=== PATIENT | female | born 1955 | race Caucasian/White ===

== ENCOUNTER 2022-06-03 10:48 | Outpatient (CLI) | payer MEDICARE, SELFPAY | END 2022-06-03 10:49 | disposition home or self-care (01) | LOC: NFLDREF 10:50 | PROVIDERS: PCP Family Medicine; Visit Provider Family Medicine | DX: Z00.00 Encounter for general adult medical examination without abnormal findings (principal); R53.83 Other fatigue; E78.5 Hyperlipidemia, unspecified; N39.0 Urinary tract infection, site not specified; E03.9 Hypothyroidism, unspecified; M85.80 Other specified disorders of bone density and structure, unspecified site; Z12.4 Encounter for screening for malignant neoplasm of cervix | CPT/HCPCS: 87624; 88175 ==

== ENCOUNTER 2022-06-16 13:52 | Outpatient (CLI) | payer MEDICARE, SELFPAY ==
--- NOTE | 2022-06-16 14:00 | CRLHL7_ITS ---
For Patients: As a result of the Century Cures Act, medical imaging exams and procedure reports are released immediately into your electronic medical record. You may view this report before your referring provider. If you have questions, please contact your health care provider. DXA BONE MINERAL DENSITY STUDY Current height (in): 67.5. Weight (lb): 210.0. Menopause age: 50. Ethnicity: White. 1. Have you had a previous hip or vertebral fracture? No. 2. Have you had any fractures during your adult life which did not result from significant trauma (e.g., auto accident)? Yes. 3. Did either of your parents have a hip fracture? No. 4. Do you smoke? No. 5. Have you ever taken Glucocorticoids? No. 6. Do you have rheumatoid arthritis? No. 7. Do you have secondary osteoporosis? No. 8. Do you drink 3 or more alcoholic drinks per day? No. 9. Are you being treated for osteoporosis? No. 10. Have you ever taken any of the following medications: Actonel, Evista, Fosamax, Miacalcin, Reclast, Boniva, Forteo, HRT (i.e. estrogen/hormone therapy), Protelos, Prolia, Vitamin D, Calcium, other ??? please specify. ANSWER: Yes, calcium, vitamin D. 11. Do you have any of the following medical conditions: Anorexia or bulimia, asthma or emphysema, end stage renal disease, hyperparathyroidism, any seizure disorders, cancer, inflammatory bowel diseases, hysterectomy, other ??? please specify. ANSWER: No. 12. What was your maximum height (inches)? 67.5. 13. Do you perform weight bearing exercise regularly? Yes. 14. Do you regularly consume dairy products? Yes. 15. Do you drink caffeinated beverages? No. 16. At what age did your period start? 14. 17. Are you premenopausal? No. 18. How many full term pregnancies have you had? Zero. 19. Have you ever missed your period for more than 6 months in a row (not including or menopause)? No. TECHNIQUE: Bone mineral density study was performed using the [employer]. FINDINGS: The results of the study expressed as bone mineral density (BMD) are as follows: Lumbar spine L1 to L4: BMD: 0.940 g/cm2. T-score: -1.0. Z-score: 0.8. Neck Left: BMD: 0.704 g/cm2. T-score: -1.3. Z-score: 0.2. Right: BMD: 0.737 g/cm2. T-score: -1.0. Z-score: 0.5. Total Left: BMD: 0.777 g/cm2. T-score: -1.4. Z-score: -0.1. Right: BMD: 0.844 g/cm2. T-score: -0.8. Z-score: 0.5. IMPRESSION: Osteopenia. *Comparison exams done prior to 04/2020 were performed on different unit, [employer]ron[employer]. COMPARISON: Compared with scan of 2019, the bone mineral density has increased by 8.5 percent at the spine and increased by 2.8 percent at the hips. FRAX 10-year Fracture Risk Major Osteoporotic Fracture: 13 percent Hip Fracture: 1.2 percent Reported Risk Factors: [place] () Neck BMD=0.704, BMI=32.4, previous fracture. Levy Whipple M.D. Diagnostic Radiologist [email or web address] MERY/felicia / be/Dictated by: Levy Whipple MD @ 06/16/2022 3:47:00 PM (Electronically Signed)
== END 2022-06-16 13:53 | disposition home or self-care (01) ==
LOC: RAD 13:52
PROVIDERS: PCP Family Medicine; Visit Provider Family Medicine
DX: M85.80 Other specified disorders of bone density and structure, unspecified site (principal); M81.0 Age-related osteoporosis without current pathological fracture
CPT/HCPCS: 77080

== ENCOUNTER 2022-09-22 13:29 | Outpatient (CLI) | payer MEDICARE, SELFPAY ==
--- OUTSIDE RECORDS SUMMARY | 2022-09-22 13:32 | XMS_ITS | Encounter Summary ---
:1955 Author Organization [facility] Address [address] [place] [address] Care Team Providers Name Role Phone Niecy Herrera M.D., M.P.H. Primary Care Provider [phone] Encounter Details Date Type Department Care Team Description 06/03/2022 [facility] Vidhi Velarde Infection Urinary AND CL[facility]ICS [place] (Primary Dx) [address] [facility] [address] [place] [address] [place], [place] [phone] [facility] Social History Tobacco Use Types Packs/Day Years Used Date Smoking Tobacco: Never Smokeless Tobacco: Never Alcohol Use Standard Drinks/Week Comments Yes 0 (1 standard drink = 0.6 oz pure alcoho l) Social Alcohol Habits Answer Date Recorded How often do you have a drink containing alcohol? Monthly or less 09/12/2022 How many drinks containing alcohol do you have on a 1 or 2 09/12/2022 typical day when you are drinking? How often do you have six or more drinks on one Never 09/12/2022 occasion? Social Isolation Answer Date Recorded In a typical week, how many times do you talk on the phone T wice a week 09/12/2022 with family, friends, or neighbors? How often do you get together with friends or relatives? Nev er 09/12/2022 How often do you attend synagogue or alevism services? Never 05/13/2019 Do you belong to any clubs or organizations such as synagogue N o 09/12/2022 groups, unions, fraternal or athletic groups, or school groups? How often do you attend meetings of the clubs or Never 05/13/2019 organizations you belong to? Are you now , , , , never Mar ried 09/12/2022 or living with a partner? Physical Activity Answer Date Recorded On average, how many days per week do you engage in moderate to 3 days 09/12/2022 strenuous exercise (like walking fast, running, jogging, dancing, swimming, biking, or other activities that cause a light or heavy sweat)? On average, how many minutes do you engage in exercise at th is 40 min 09/12/2022 level? Stress Answer Date Recorded Do you feel stress - tense, restless, nervous, or Only a lit tle 09/12/2022 anxious, or unable to sleep at night because your mind is troubled all the time - these days? Financial Resource Strain Answer Date Recorded How hard is it for you to pay for the very basics like Not h isis at all 09/12/2022 food, housing, medical care, and heating? Intimate Partner Violence Answer Date Recorded Within the last year, have you been afraid of your partner o r No 09/12/2022 ex-partner? Within the last year, have you been humiliated or emotionall y No 09/12/2022 abused in other ways by your partner or ex-partner? Within the last year, have you been kicked, hit, slapped, or No 09/12/2022 otherwise physically hurt by your partner or ex-partner? Within the last year, have you been raped or forced to have any No 09/12/2022 kind of sexual activity by your partner or ex-partner? Food Insecurity Answer Date Recorded Within the past 12 months, you worried that your food would Never true 09/12/2022 run out before you got money to buy more. Within the past 12 months, the food you bought just didn't N ever true 09/12/2022 last and you didn't have money to get more. Transportation Needs Answer Date Recorded In the past 12 months, has lack of transportation kept you f rom No 09/12/2022 medical appointments or from getting medications? In the past 12 months, has lack of transportation kept you f rom No 09/12/2022 meetings, work, or getting things needed for daily living? Housing Stability Answer Date Recorded In the last 12 months, was there a time when you were not ab le No 09/12/2022 to pay the mortgage or rent on time? In the last 12 months, how many places have you lived? 1 09/12/2022 In the last 12 months, was there a time when you did not hav e a No 09/12/[address] or slept in a prison (including now)? Education Answer Date Recorded What is the highest level of school Bachelor's degree (e.g., BA, AB, 05/13/2019 you have completed or the highest BS) degree you have received? 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 [address], [place] [phone] (Wo rk) documented as of this encounter Visit Diagnoses Diagnosis Infection Urinary Tract - Primary documented in this encounter Additional Health Concerns Assessment Noted Time PHQ-9 Depression Total Score: 2 04/17/2019 10:20 AM CD T documented as of this encounter Care Teams Mechanic Assistant Relationship Specialty Start Date End Date Niecy Herrera M.D., M.P.H. PCP - General 08/15/20 [address] [place] [address] documented as of this encounter
--- OUTSIDE RECORDS SUMMARY | 2022-09-22 13:32 | XMS_ITS | Encounter Summary ---
:1955 Author Organization [facility] Address [address] [place] [address] Care Team Providers Name Role Phone Niecy Herrera M.D., M.P.H. Primary Care Provider [phone] Encounter Details Date Type Department Care Team Description 05/13/2022 Orders Only Department of Family Radha Santamaria, Medicine, [facility] in [facility] [address] [place] [phone] Social History Tobacco Use Types Packs/Day Years [...] er 09/12/2022 How often do you attend evangelical or muslim services? Never 05/13/2019 Do you belong to any clubs or organizations such as evangelical N o 09/12/2022 groups, unions, fraternal or [...] place to sleep or slept in a long term (including now)? Education Answer Date Recorded What is the highest level of school Bachelor's degree (e.g., BA, AB, 05/13/2019 you have completed or the highest BS) degree you have received? 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 [address], [place] [phone] (Wo rk) documented as of this encounter Visit Diagnoses Not on filedocumented in this encounter Additional Health Concerns Assessment Noted Time PHQ-9 Depression Total Score: 2 04/17/2019 10:20 AM CD T documented as of this encounter Care Teams Director Software Quality Assurance Relationship Specialty Start Date End Date Niecy Herrera M.D., M.P.H. PCP - General 08/15/20 [address] [place] [address] documented as of this encounter
--- OUTSIDE RECORDS SUMMARY | 2022-09-22 13:32 | XMS_ITS | Encounter Summary ---
:1955 Author Organization [facility] Address [address] [place] [address] Care Team Providers Name Role Phone Niecy Herrera M.D., M.P.H. Primary Care Provider [phone] Reason for Referral Outpatient (Routine) - Authorized Specialty Diagnoses / Procedures Referred By Contact Refer red To Contact Diagnoses Screening Mammogram Breast Cancer Niecy Herrera M.D., [facility] Procedures BI Breast Screening Bilateral with Tomosynthesis M.P.H. [address] [place] [phone] Referral ID Status Reason Start Date Expiration Date Visits V isits Requested Authorized [id number] Authorized 09/21/2022 09/21/2023 1 1 X VMWARE ADMINISTRATOR Encounter Details Date Type Department Care Team Description 09/21/2022 Orders Only RST PCP [facility] Niecy Herrera, Scre ening Examination Diabetes Mellitus; Pepper, M.P.H. Screening Mammogram Breast Cancer; [address] [place] [phone] (Wo rk) Social History Tobacco Use Types Packs/Day Years [...] er 09/12/2022 How often do you attend uatsdin or lutheran services? Never 05/13/2019 Do you belong to any clubs or organizations such as uatsdin N o 09/12/2022 groups, unions, fraternal or [...] place to sleep or slept in a long-term (including now)? Education Answer Date Recorded What is the highest level of school Bachelor's degree (e.g., BA, AB, 05/13/2019 you have completed or the highest BS) degree you have received? 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 [address] [phone] (Wo rk) Scheduled Orders Name Type Priority Associated Diagnoses Order S chedule Glucose, Fasting Lab Routine Screening Examination Ex pected: Diabetes Mellitus 10/05/2022 , Expires: 03/20/2023 BI Breast Screening Imaging RAD - Routine Screening Mammogram Expected: Bilateral with (most inpatients Breast Cancer 12/08/20 22, Tomosynthesis and all Expires: outpatients) 03/20/2023 S-TSH Lab Routine Hypothyroidism Expected: (Thyroid-Stimulating 022, Hormone - Sensitive) Expires : 03/20/2023 documented as of this encounter Visit Diagnoses Diagnosis Screening Examination Diabetes Mellitus Screening Mammogram Breast Cancer Hypothyroidism documented in this encounter Additional Health Concerns Assessment Noted Time PHQ-9 Depression Total Score: 2 04/17/2019 10:20 AM CD T documented as of this encounter Care Teams Welding Manager Relationship Specialty Start Date End Date Niecy Herrera M.D., M.P.H. PCP - General 08/15/20 [address] [place] [address] documented as of this encounter
--- OUTSIDE RECORDS SUMMARY | 2022-09-22 13:32 | XMS_ITS | Encounter Summary ---
:1955 Author Organization [facility] Address [address] [place] [address] Care Team Providers Name Role Phone Niecy Herrera M.D., M.P.H. Primary Care Provider [phone] Encounter Details Date Type Department Care Team Description 09/24/2021 Orders Only [facility] PCP [facility] M[facility] Niecy Herrera M.D., M.P.H. [address] [place], [place] [phone] (Wo rk) Social History Tobacco Use Types [...] er 09/12/2022 How often do you attend christianity or roman catholic services? Never 05/13/2019 Do you belong to any clubs or organizations such as christianity N o 09/12/2022 groups, unions, fraternal or [...] at Date Recorded Female 11/29/2017 6:36 PM RECONSTRUCTIVE SURGEON documented as of this encounter Plan of Treatment Upcoming Encounters Date Type Specialty Care Team Description 11/01/2022 Office Visit Urology Regina Black, PRIOR AUTHORIZATION NURSE, C.N.P. [address], [place] [phone] (Wo rk) documented as of this encounter Visit Diagnoses Not on filedocumented in this encounter Additional Health Concerns Assessment Noted Time PHQ-9 Depression Total Score: 2 04/17/2019 10:20 AM CD T documented as of this encounter Care Teams Container Finisher Relationship Specialty Start Date End Date Niecy Herrera M.D., M.P.H. PCP - General 08/15/20 [address] [place] [address] documented as of this encounter
--- OUTSIDE RECORDS SUMMARY | 2022-09-22 13:32 | XMS_ITS | Encounter Summary ---
:1955 Author Organization [facility] Address [address] [place] [address] Care Team Providers Name Role Phone Niecy Herrera M.D., M.P.H. Primary Care Provider [phone] Reason for Referral Physical Therapy (Routine) - Authorized Specialty Diagnoses / Procedures Referred By Contact Refer red To Contact Physical Therapy Diagnoses Dysfunction Pelvic Floor Female Incomplete Bladder Emptying Constipation [facility] [address] [address] Phone: [phone] Referral ID Status Reason Start Expiration Visits Visits Date Date Requested Authorized [id number] Authorized Service not 09/13/2023 1 1 available in 2 [facility] utpatient (Routine) - Authorized Specialty Diagnoses / Procedures Referred By Contact Refer red To Contact Urology Regina Black APRN, C.N.P. [facility] [address] [place] [address] Referral ID Status Reason Start Date Expiration Date Visits V isits Requested Authorized [id number] Authorized 09/13/2022 09/12/2025 1 1 Reason for Visit Reason Comments Recurrent Urinary Tract Infection Incomplete Bladder Emptying Appointment Request (Routine) - Closed Specialty Diagnoses / Procedures Referred By Contact Refer red To Contact Urology Referral ID Status Reason Start Date Expiration Date Visits Requ ested Visits Authorized [id number] Closed 09/06/2022 09/06/2023 1 1 Encounter Details Date Type Department Care Team Description 09/13/2022 Office Visit Department of Urology Regina Black, Incomplete Bladder Emptying (Primary Dx); in [facility] Richardson C.N.Karen Dysfunction Pelvic Floor Female; [place] [address] Constipation; [address] [facility] [place] Infection Urinary Tract Recu rrent ARIA RICHARDSON [id number] [phone] Social History Tobacco Use Types Packs/Day Years Used Date Smoking Tobacco: Never Smokeless Tobacco: Never Tobacco Cessation: Counseling Given: Not Answered Alcohol Use Standard Drinks/Week Comments Yes 0 [...] er 09/12/2022 How often do you attend anabaptist or cheondoism services? Never 05/13/2019 Do you belong to any clubs or organizations such as anabaptist N o 09/12/2022 groups, unions, fraternal or [...] place to sleep or slept in a residential (including now)? Education Answer Date Recorded What is the highest level of school Bachelor's degree (e.g., BA, AB, 05/13/2019 you have completed or the highest BS) degree you have received? 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 - 09/13/2022 11:00 AM CDT SUBJECTIVE REASON FOR CONSULT Recurrent UTI HISTORY OF PRESENT ILLNESS Emelyn is a pleasant 66 year old female here for consultation for recurrent urinary tract infection. We last saw her here in May 2019. At that time we discussed starting her on vaginal estrogen cream, she did not feel it was necessary. She then continued to have urinary tract infections and was seen at [place] [facility] where she was scheduled for urethral dilation in January 2020. (She did have a urethral dilation in 1991 that was done in clinic, this was very painful for her.) That procedure was canceled due to COVID-19 pandemic. She started using Premarin cream once a week, cranberry and vitamin-Csupplements, cleansing and drinking fluids prior to and after intercourse as well as taking 1 dose of antibiotic after intercourse. This helped keep her infections under control for about a year. In 2019 and 2020 her psychiatrist increased her doxepin dosage from 40 mg to 125 mg at bedtime for anxiety. A side effect of this medication is urinary retention. When she was seen here in 2018 her postvoid residual was 256 mL, this became gradually more elevated at her last visits with [place] [facility]. In 2020 she was having some GI issues and stopped taking the antibiotics after intercourse and also stopped her Premarin cream as her previous general practitioner had warned her that this could cause cancer. She then had multiple urinary tract infections and switched to a provider at [facility]. With each course of antibiotics, it took her almost 6 weeks to recover and have normal bowel movements after completing course of antibiotics. She was felt to be constipated so was started on MiraLax daily and restarted her Premarin cream, she was also referred back to [place] [facility]. On February 12, 2022 she retired from her full-time job which relieved a lot of her stress and anxiety. She has been slowly weaning off the doxepin, currently she is taking 30 mg daily. In June [address] Banerjee at [place] [facility] who scheduled her for urethral dilation. She was not feeling well and cancel the procedure. She is not had any urinary tract infections since April but has not been having intercourse since that time. She has many questions about procedures recommended to her as wellas other possible causes for her urinary retention and recurrent urinary tract infections. She typically drinks 8 glasses of water throughout the day. She gets up twice in the night to urinate, she previously slept through the night but she feels this was likely related to her doxepin dosage. She typically does not have any incontinence day or night. Associated Symptoms abdominal pain (+) headaches (+) Lower Urinary Symptoms Lower Urinary Sx: difficulty urinating (+) Presence of pelvic pain: abdominal pain (+) The following portions of the patient's history were reviewed and updated as appropriate: allergies,current medications, family history, medical history, social history, surgical history, and problem list. REVIEW OF SYSTEMS Gastrointestinal: Positive for abdominal (belly) pain or cramping and constipation. Genitourinary: Positive for difficulty urinating. Neurological: Positive for headaches. The following systems were negative: Constitutional, Skin, Eyes, ENT, Respiratory, Cardiovascular, Hematologic, Musculoskeletal, Psychiatric Past Medical History: Diagnosis Date Abnormal Pap Smear Personal History 11/17/2015 Amblyopia Bilateral 1961 Anemia Iron Deficiency 08/15/2015 Anxiety 01/12/2016 Apnea Sleep Obstructive 09/20/2014 Cancer Skin Basal Cell Personal History 01/29/2018 Cancer Thyroid Family History 01/12/2016 Cyst Sebaceous 02/11/2017 Depression Anxiety 01/03/2009 Diverticulosis Colon 08/22/2014 Elevated Liver Function Test 01/12/2016 Gastroesophageal Reflux Disease 11/17/2015 Hemorrhoids Internal 08/22/2014 Hernia Hiatal 01/12/2016 Hyperkalemia 01/12/2016 Hyperlipidemia 11/17/2015 Hyponatremia 08/15/2015 Hypothyroidism On Replacement 01/29/2018 Impaired Fasting Glucose 11/17/2015 Insomnia 11/15/2017 Keratosis Seborrheic Inflamed 02/11/2017 Malignant Neoplasm Of Skin Basal Cell Carcinoma 01/12/2016 Migraine Headache 1980 Necrosis Avascular Humeral Head Right (HCC) 11/15/2017 Nodule Thyroid 01/12/2016 Osteopenia 11/17/2015 Other Injury Of Unspecified Body Region 2012 Planning shoulder replacement later this year Pain Hip Bilateral 01/29/2018 Primary Central Sleep Apnea 09/20/2014 Primary Osteoarthritis Shoulder Right 01/29/2018 Rosacea 01/12/2016 Rotator Cuff Disorder Left 11/15/2017 Tinnitus Bilateral 12/30/2017 Past Surgical History: Procedure Laterality Date BREAST BIOPSY Left Negative BREAST FIBROADENOMA SURGERY Left COLONOSCOPY 08/22/2014 Complicated with perforation. Repeat in 10 years. [place], [place] DILATATION AND CURETTAGE ESOPHAGOGASTRODUODENOSCOPY 08/22/2014 OTHER SURGICAL HISTORY strabismus 1986 1985 STRABISMUS SURGERY Bilateral 1986 THERAPEUTIC 1982 THYROIDECTOMY, PARTIAL Right 06/06/2015 Right thyroid lobectomy and isthmusectomy. TONSILLECTOMY Family History Problem Relation Age of Onset Heart attack Father Coronary artery disease Father Stroke Father Alcohol user Father Smoker Father Alcohol abuse Father Bladder cancer Brother Smoker Brother Emphysema Mother Hypertension Mother Smoker Mother Anxiety disorder Mother Gluten sensitivity Sister Diabetes Maternal Grandmother Heart disease Brother Alcohol abuse Brother Other cancer Brother Bladder Alcohol abuse Brother Alcohol abuse Brother Allergies Allergen Reactions Antibiotic Cream Rash Bupropion Hcl Tinnitus Cat Dander Other (see comments) Chlorhexidine Rash Fluoxetine Hives FLUOXETINE HCL - Prozac House Dust Mite Other (see comments) Ibuprofen GI bleeding Iron,Carbonyl-Vitamin C Other (see comments) Okcfnkob-Okbekaixy-Egheibozy Rash Nsaids (Non-Steroidal Anti-Inflammatory Drug) GI bleeding Sertraline GI intolerance bruxism and constipation at high doses Tape [Adhesive Tape-Silicones] Rash Current Outpatient Medications on File Prior to Visit Medication Sig Dispense Refill ascorbic acid, vitamin C, (VITAMIN C) 500 mg capsule, extended release CR capsule Take 500 mg by mouth. busPIRone (BUSPAR) 5 mg tablet Take 1 tablet (5 mg total) by mouth as directed. 8 times a day (Patient taking differently: Take 5 mg by mouth as directed. 4 times a day) cholecalciferol (VITAMIN D3) 50 mcg (2,000 Unit) capsule vitamin d3 2000 unit cap TAKE 2 CAPSULES (4,000 UNITS) BY MOUTH DAILY clonazePAM (for_KlonoPIN) 1 mg tablet Take 1 tablet (1 mg total) by mouth daily as needed for anxiety. (Patient taking differently: Take 0.5 mg by mouth daily as needed for anxiety.) 30 tablet 0 cranberry extract (CRAN-MAX) 500 mg capsule capsule Take 500 mg by mouth. DME CPAP DME Order fit interface to patient comfort 1 each 0 doxepin (SINEquan) 10 mg capsule Take 30 mg by mouth at bedtime. estrogens, conjugated, (Premarin) 1 g (0.625 mg/gram) vaginal cream Premarin 0.625 mg/gram vaginal cream INSERT 0.5GM VAGINALLY ONCE WEEKLY hypochlorous acid-sodium chlor (ACUICYN) 0.01 % topical spray Apply 40 mL topically. HYPROMELLOSE (SYSTANE GEL OPHT) Administer 1 drop into both eyes 2 (two) times a day. miscellaneous medical supply misc autoSV, heated humidifier, mask, headgear, filters and tubing. Length of Need: 99 SYNTHROID 75 mcg tablet Take 1 tablet (75 mcg total) by mouth every morning before breakfast. (Patient taking differently: Take 100 mcg by mouth every morning before breakfast.) 90 tablet 3 [DISCONTINUED] cranberry 500 mg capsule cranberry 500 mg capsule Take by oral route. cholecalciferol (VITAMIN D3) 50 mcg (2,000 Unit) capsule Take 1 capsule by mouth daily. doxepin (SINEquan) 10 mg capsule Take 50 capsules by mouth at bedtime. Along with 10 mg for HS doseof 60 mg peg 400-propylene glycol (SYSTANE) 0.4-0.3 % ophthalmic solution Systane (propylene glycol) 0.4 %-0.3 % eye drops PNV NO.95/FERROUS FUM/FOLIC AC ( MULTIVITAMINS ORAL) Take 1 tablet by mouth daily. ZINC ORAL No current facility-administered medications on file prior to visit. Social History Tobacco Use Smoking status: Never Smokeless tobacco: Never Substance Use Topics Alcohol use: Yes Types: 1 Standard drinks or equivalent per week Comment: Social Drug use: No OBJECTIVE There were no vitals filed for this visit. PHYSICAL EXAM Vitals and nursing note reviewed. General: Well developed, well nourished, well groomed female in no acute distress. Neurological: Alert, cooperative, oriented x3. Appropriate mood and affect. Head: Normal appearance, no abnormalities, normocephalic. Neck: Symmetrical and supple, trachea is midline. Cardiac: regular rate, regular rhythm Respiratory: Respirations are unlabored with normal respiratory rate and normal respiratory movements. Normal chest wall expansion without use of accessory muscles. Abdomen: Soft, non-tender, non-distended Extremities: Warm, without edema or ulcerations. DIAGNOSTIC Postvoid residual by bladder scan 764 mL. ASSESSMENT / PLAN 1. Dysfunction Pelvic Floor Female 2. Incomplete Bladder Emptying 3. Constipation 4. Infection Urinary Tract Recurrent We had an in-depth discussion about prevention of urinary tract infections. She is not emptying her bladder well which is likely a factor in her recurrent urinary tract infections. We discussed that performing intermittent catheterization 2-6 daily would likely improve her bladder emptying and prevent infections from occurring so often. It is a very common side effect of doxepin to have urinary retention. Stopping this medication will likely help bladder emptying, we can not be certain that this will completely change her current bladder function. Constipation does affect bladder function. It is recommended that she take something daily to help with bowel movements, she may need to take more than just MiraLax if she continues to have issues withconstipation. She has been using single dose of Macrobid for postcoital prevention of infection. She has been having intercourse very infrequently, using this less than once a week should not cause resistance, although this is a possibility. We discussed success rates of urethral dilation. This is not a common practice currently, I am not sure about current success rates. We will discuss this as a urology team and make further recommendations about this in the future. We discussed ways to improve bladder emptying. We discussed possibility of InterStim trial. We also discussed pelvic floor physical therapy. D mannose can be helpful to prevent urinary tract infections. Other patients have also had success utilizing Ellura and Uqora products. She will do some research about these products. We also discussedappropriate lubrication for intercourse. At this time, it is recommended that she continue with vaginal estrogen cream, she has adequate refills of this medication. Orders are also provided for pelvic floor physical therapy. Because she has incomplete bladder emptying, would like her to follow-up in 1-2 months. Hopefully at the time of her follow-up, she will have been able to discontinue or at least continue to decrease her dose of doxepin. If she continues to have elevated postvoid residual, it may be necessary to start intermittent catheterization. All questions answered today. - External referral PT (non-[place]) Signed by: Regina Black APRN, C.N.P. 09/13/2022 11:00 AM CDT documented in this encounter Plan of Treatment Upcoming Encounters Date Type Specialty Care Team Description 11/01/2022 Office Visit Urology Regina Black APRN, C.N.P. [address], [place] [phone] (Wo rk) Scheduled Referrals Name Type Priority Associated Diagnoses Order S [facility] Urology office Outpatient Referral Routine Expect ed: visit (clinic) 10/04/2022 (Approximate), Expires: 12/14/2023 documented as of this encounter Visit Diagnoses Diagnosis Incomplete Bladder Emptying - Primary Dysfunction Pelvic Floor Female Constipation Infection Urinary Tract Recurrent documented in this encounter Additional Health Concerns Assessment Noted Time PHQ-9 Depression Total Score: 2 04/17/2019 10:20 AM CD T documented as of this encounter Care Teams Brazing Machine Setter Relationship Specialty Start Date End Date Niecy Herrera M.D., M.P.H. PCP - General 08/15/20 [address] [place] [address] documented as of this encounter
--- OUTSIDE RECORDS SUMMARY | 2022-09-22 13:32 | XMS_ITS | Encounter Summary ---
:1955 Author Organization [facility] Address [address] [place] [address] Care Team Providers Name Role Phone Niecy Herrera M.D., M.P.H. Primary Care Provider Encounter Details Date Type Department Care Team Description 03/16/2022 Orders Only [facility] PCP Nikki Bishop, Screen ing Examination Diabetes Mellitus; MNT MJuanchoDJuancho Hyperlipidemia; [address] [place] [address] Social History Tobacco Use Types Packs/Day Years [...] er 09/12/2022 How often do you attend restorationism or caodaism services? Never 05/13/2019 Do you belong to any clubs or organizations such as restorationism N o 09/12/2022 groups, unions, fraternal or [...] place to sleep or slept in a skilled nursing (including now)? Education Answer Date Recorded What is the highest level of school Bachelor's degree (e.g., BA, AB, 05/13/2019 you have completed or the highest BS) degree you have received? 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 [address], [place] [phone] (Wo rk) Scheduled Orders Name Type Priority Associated Diagnoses Order S chedule Lipid Panel Lab Routine Hyperlipidemia Expected: , Expires: 06/16/2023 documented as of this encounter Visit Diagnoses Diagnosis Screening Examination Diabetes Mellitus Hyperlipidemia Hypothyroidism documented in this encounter Additional Health Concerns Assessment Noted Time PHQ-9 Depression Total Score: 2 04/17/2019 10:20 AM CD T documented as of this encounter Care Teams Cotton Tipper Relationship Specialty Start Date End Date Niecy Herrera M.D., M.P.H. PCP - General 08/15/20 [address] [place] [address] documented as of this encounter
--- OUTSIDE RECORDS SUMMARY | 2022-09-22 13:32 | XMS_ITS | Encounter Summary ---
:1955 Author Organization [facility] Address [address] [place] [address] Care Team Providers Name Role Phone Niecy Herrera M.D., M.P.H. Primary Care Provider [phone] Reason for Referral Outpatient (Routine) - Authorized Specialty Diagnoses / Procedures Referred By Contact Refer red To Contact Diagnoses Deficiency Estrogen Post Menopausal Niecy Herrera M.D., [facility] Procedures BMD Bone Density Spine Hips M.P.H. [address] [place] [address] Referral ID Status Reason Start Date Expiration Date Visits V isits Requested Authorized [id number] Authorized 07/02/2022 07/02/2023 1 1 Encounter Details Date Type Department Care Team Description 07/02/2022 Orders Only [facility] PCP [facility] MNT Niecy Herrera Defi cidenisa Estrogen Post Pepper, M.P.H. Menopausal [address] [place] [phone] (Wo rk) Social History Tobacco Use Types [...] do you talk on the phone T wikirit a week 09/12/2022 with family, friends, or neighbors? How often do you get together with friends or relatives? Nev er 09/12/2022 How often do you attend religious or jehovah's witness services? 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 [address] [phone] (Wo rk) Scheduled Orders Name Type Priority Associated Diagnoses Order S chedule BMD Bone Density Imaging RAD - Routine (most Deficiency Estrog en Expected: Spine Hips inpatients and all Post Menopausal 2021, outpatients) Expires: 12/29/2022 documented as of this encounter Visit Diagnoses Diagnosis Deficiency Estrogen Post Menopausal documented in this encounter Additional Health Concerns Assessment Noted Time PHQ-9 Depression Total Score: 2 04/17/2019 10:20 AM CD T documented as of this encounter Care Teams Film Spooler Relationship Specialty Start Date End Date Niecy Herrera M.D., M.P.H. PCP - General 08/15/20 [address] [place] [address] documented as of this encounter
--- OUTSIDE RECORDS SUMMARY | 2022-09-22 13:32 | XMS_ITS | Encounter Summary ---
:1955 Author Organization [facility] Address [address] [place] [address] Care Team Providers Name Role Phone Niecy Herrera M.D., M.P.H. Primary Care Provider [phone] Encounter Details Date Type Department Care Team Description 03/22/2022 Clinical Communication Center for [facility] in [place], [place] [address] [facility] [address] [place] [phone] Social History Tobacco Use Types Packs/Day Years [...] er 09/12/2022 How often do you attend confucianism or baptist services? Never 05/13/2019 Do you belong to any clubs or organizations such as confucianism N o 09/12/2022 groups, unions, fraternal or [...] place to sleep or slept in a fpc (including now)? Education Answer Date Recorded What is the highest level of school Bachelor's degree (e.g., BA, AB, 05/13/2019 you have completed or the highest BS) degree you have received? 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 The replacement of accessories is medically necessary and essential to use PAP effectively. Telephone Encounter - Jennifer Cameron R.N., LOLA - 03/22/2022 3:40 PM CDT Ms. Oliveros is currently well established and stable in management of PAP therapy for the management of sleep disordered breathing. CPAP prescription renewal generated per protocol [id number]. The prescription will be sent to the [facility] CPAP store. Telephone Encounter - Gagan Howell V. - 03/22/2022 3:32 PM CDT Do you have any questions or concerns about your PAP therapy that you feel warrants a return visit at this time: NO Device type: Jobinaseconds How many hours per night are you using your PAP therapy: 7-8 HOURS (If less than 5 hours schedule an apt) Are you on oxygen: NO (If yes schedule appointment with MD/fellow) Outcome: RN Protocol Management Who is the Vendor you use: [facility], please fax What type of mask do you wear: Pillow mask Do you have a heated hose? YES documented in this encounter Plan of Treatment Upcoming Encounters Date Type Specialty Care Team Description 11/01/2022 Office Visit Urology Regina Black APRN, C.N.P. [address] [place], [place] [phone] (Wo rk) documented as of this encounter Visit Diagnoses Diagnosis Apnea Sleep Obstructive Depression Anxiety Thyroidectomy Partial Status Post Hypothyroidism On Replacement Gastroesophageal Reflux Disease documented in this encounter Additional Health Concerns Assessment Noted Time PHQ-9 Depression Total Score: 2 04/17/2019 10:20 AM CD T documented as of this encounter Care Teams Privacy Specialist Relationship Specialty Start Date End Date Niecy Herrera M.D., M.P.H. PCP - General 08/15/[address] [place] [address] documented as of this encounter
--- OUTSIDE RECORDS SUMMARY | 2022-09-22 13:32 | XMS_ITS | Encounter Summary ---
:1955 Author Organization [facility] Address [address] [place] [address] Care Team Providers Name Role Phone Niecy Herrera M.D., M.P.H. Primary Care Provider [phone] Reason for Visit Reason Comments Other Quality. mammo Encounter Details Date Type Department Care Team Description 05/13/2022 Clinical Communication Department of Marianela Herrera (Quality. Community Internal Niecy Jacobs mammo) Medicine in Isi.Aysha., M.P.H. [place], [address] [place], [place] [address] [facility] [address] [place], [place] [phone] [address] (Work) [phone] Social History Tobacco Use Types Packs/Day Years [...] er 09/12/2022 How often do you attend adventism or mormon services? Never 05/13/2019 Do you belong to any clubs or organizations such as adventism N o 09/12/2022 groups, unions, fraternal or [...] at Date Recorded Female 11/29/2017 6:36 PM AUTOMATION LEAD documented as of this encounter Miscellaneous Notes Telephone Encounter - Chanel Valdivia L.P.N. - 05/13/2022 2:01 PM CDT Left message for patient to return call to clinic. Does the patient need to speak to nursing? no Action needed: Find out if patient wants to get her Mammogram here. Telephone Encounter - Florecita Wilburn - 05/13/2022 12:57 PM CDT Patient returning call, Telephone Encounter - Orin Leso C.M.A. - 05/13/2022 11:57 AM CDT Left message for patient to return call to clinic. Does the patient need to speak to nursing? yes Action needed: Patient is due for mammogram in health maintenance. No order is placed. If patient wants done then message needs to be sent to provider to place mammo order. documented in this encounter Plan of Treatment Upcoming Encounters Date Type Specialty Care Team Description 11/01/2022 Office Visit Urology Regina Black APRN, C.N.P. [address] [place], [place] [phone] (Wo rk) documented as of this encounter Visit Diagnoses Not on filedocumented in this encounter Additional Health Concerns Assessment Noted Time PHQ-9 Depression Total Score: 2 04/17/2019 10:20 AM CD T documented as of this encounter Care Teams Ic Designer Gate Arrays Relationship Specialty Start Date End Date Niecy Herrera M.D., M.P.H. PCP - General 08/15/[address] [place] [address] documented as of this encounter
--- OUTSIDE RECORDS SUMMARY | 2022-09-22 13:32 | XMS_ITS | Encounter Summary ---
:1955 Author Organization [facility] Address [address] [place] [address] Care Team Providers Name Role Phone Niecy Herrera M.D., M.P.H. Primary Care Provider [phone] Encounter Details Date Type Department Care Team Description 12/15/2021 Orders Only [facility] Niecy Ortiz M.D., M.P.H. Post Menopausal [address] [place] [id number] Social History Tobacco Use Types Packs/Day Years [...] er 09/12/2022 How often do you attend adventist or confucianist services? Never 05/13/2019 Do you belong to any clubs or organizations such as adventist N o 09/12/2022 groups, unions, fraternal or [...] place to sleep or slept in a retirement (including now)? Education Answer Date Recorded What is the highest level of school Bachelor's degree (e.g., BA, AB, 05/13/2019 you have completed or the highest BS) degree you have received? Sex Assigned at Date Recorded Female 11/29/2017 6:36 PM HOME HEALTH REGISTERED NURSE documented as of this encounter Plan of Treatment Upcoming Encounters Date Type Specialty Care Team Description 11/01/2022 Office Visit Urology Regina Black, BROADCAST METEOROLOGIST, C.N.P. [address] [phone] (Wo rk) documented as of this encounter Visit Diagnoses Diagnosis Deficiency Estrogen Post Menopausal documented in this encounter Additional Health Concerns Assessment Noted Time PHQ-9 Depression Total Score: 2 04/17/2019 10:20 AM CD T documented as of this encounter Care Teams Management Engineer Relationship Specialty Start Date End Date Niecy Herrera M.D., M.P.H. PCP - General 08/15/20 [address] [place] [address] documented as of this encounter
--- OUTSIDE RECORDS SUMMARY | 2022-09-22 13:32 | XMS_ITS | Clinical Summary ---
:[address] [facility] Address [address] [place] [address] Care Team Providers Name Role Phone Niecy Herrera M.D., M.P.H. Primary Care Provider [phone] Source Comments Patient records contain information from all sites at [facility]. For routine questions regarding patient records, call [phone] during business hours, M-F 8:00 AM - 5:00 PM Central Time. Record requests for emergency care only can be directed to [phone] at any time.[facility] Allergies Active Allergy Reactions Severity Noted Date Comments Antibiotic Cream Rash Bupropion Hcl Tinnitus 11/17/2015 Cat Dander Other (see comments) 06/08/2019 Chlorhexidine Rash Fluoxetine Hives 02/09/2014 FLUOXETINE HCL - Prozac House Dust Mite Other (see comments) 06/08/2019 Ibuprofen GI bleeding Iron,Carbonyl-Vitamin C Other (see comments) 5 Zstpczok-Uahxknrxr-Hbhq Rash 12/25/2019 oxine Nsaids (Non-Steroidal GI bleeding 11/30/2017 Anti-Inflammatory Drug) Sertraline GI intolerance 04/18/2007 bruxism and constipation at high doses Adhesive Tape-Silicones Rash Medications Medication Sig Dispensed Refills Start Date End Date Status clonazePAM Take 1 tablet (1 30 tablet 0 10/20/2017 A ctive (for_KlonoPIN) 1 mg mg total) by mouth tablet daily as needed for anxiety. Additional Information Patient taking differently: 0.5 mg oral Daily PRN, anxiety, Reported on 09/13/2022 miscellaneous medical supply autoSV, heated 0 2013 Active misc humidifier, mask, headgear, filters and tubing. Length of Need: 99 PNV NO.95/FERROUS FUM/FOLIC Take 1 tablet by mouth 0 10/22/2016 Active AC ( MULTIVITAMINS daily. ORAL) cholecalciferol (VITAMIN D3) Take 1 capsule by mouth 0 Active 50 mcg (2,000 Unit) capsule daily. HYPROMELLOSE (SYSTANE GEL Administer 1 drop into 0 0 02/23/2016 Active OPHT) both eyes 2 (two) times a day. SYNTHROID 75 mcg tablet Take 1 tablet (75 mcg 90 tablet 3 05/14 Active total) by mouth every morning before breakfast. Additional Information Patient taking differently: 100 mcg oral Daily before breakfast, Reported on 09/13/2022 ascorbic acid, vitamin C, Take 500 mg by mouth. 0 Active (VITAMIN C) 500 mg capsule, extended release CR capsule cranberry extract (CRAN-MAX) 500 Take 500 mg by mouth. 0 06/20/2019 Active mg capsule capsule doxepin (SINEquan) 10 mg capsule Take 50 capsules by mouth at 0 11/28/2019 Active bedtime. Along with 10 mg for HS dose of 60 mg hypochlorous acid-sodium chlor Apply 40 mL topically. 0 12/25/2019 Active (ACUICYN) 0.01 % topical spray busPIRone (BUSPAR) 5 mg tablet Take 1 tablet (5 mg total) 0 11/12/2020 Active by mouth as directed. 8 times a day Additional Information Patient taking differently: 5 mg oral As Directed, 4 times a day, Reported on 09/13/2022 doxepin (SINEquan) 10 mg Take 30 mg by 0 Active capsule mouth at bedtime. DME CPAPIndications: DME Order fit 1 each 0 03/22/20 Active Apnea Sleep Obstructive, interface to 22 Depression Anxiety, patient comfort Thyroidectomy Partial Status Post, Hypothyroidism On Replacement, Gastroesophageal Reflux Disease cholecalciferol (VITAMIN vitamin d3 2000 unit cap 0 Active D3) 50 mcg (2,000 Unit) TAKE 2 CAPSULES (4,000 UNITS) BY MOUTH DAILY capsule estrogens, conjugated, Premarin 0.625 mg/gram vaginal cream 0 01/25/20 Active (Premarin) 1 g (0.625 INSERT 0.5GM VAGINALLY ONCE WEEKLY 20 mg/gram) vaginal cream peg 400-propylene glycol Systane 0 Active (SYSTANE) 0.4-0.3 % (propylene ophthalmic solution glycol) 0.4 %-0.3 % eye drops ZINC ORAL 0 05/14/20 Active 20 cranberry 500 mg capsule cranberry 500 mg capsule 0 09/13/20 Discontinued Take by oral route. 22 (Duplicate order) Active Problems Problem Noted Date Allergy Drug Personal History 06/11/2019 Infection Urinary Tract Escherichia Coli 03/23/2019 Idiopathic Aseptic Necrosis Right Humerus 09/14/2018 Hypothyroidism On Replacement 01/29/2018 Pain Hip Bilateral 01/29/2018 Primary Osteoarthritis Shoulder Right 01/29/2018 Cancer Skin Basal Cell Personal History 01/29/2018 Tinnitus Bilateral 12/30/2017 Necrosis Avascular Humeral Head Right 11/15/2017 Insomnia 11/15/2017 Rotator Cuff Disorder Left 11/15/2017 Pain Shoulder Right 09/14/2017 Cyst Sebaceous 02/11/2017 Keratosis Seborrheic Inflamed 02/11/2017 Malignant Neoplasm Of Skin Basal Cell Carcinoma 2015 Cancer Thyroid Family History 01/12/2016 Diverticulosis Colon 01/12/2016 Elevated Liver Function Test 01/12/2016 Fracture Shoulder Closed Subsequent 01/12/2016 Hernia Hiatal 01/12/2016 High Risk Medication 01/12/2016 Hyperkalemia 01/12/2016 Nodule Thyroid 01/12/2016 Overview: S/P right thyroid lobectomy and isthmuse ctomy 06/06/2015. Rosacea 01/12/2016 Osteopenia 11/17/2015 Abnormal Pap Smear Personal History 11/17/2015 Gastroesophageal Reflux Disease 11/17/2015 Hyperlipidemia 11/17/2015 Impaired Fasting Glucose 11/17/2015 Anemia Iron Deficiency 08/15/2015 Hyponatremia 08/15/2015 Thyroidectomy Partial Status Post 08/15/2015 Primary Central Sleep Apnea 09/20/2014 Apnea Sleep Obstructive 09/20/2014 Depression Anxiety 01/03/2009 Anxiety Generalized Disorder 12/01/2005 Overview: Overview: Problem list name updated by dago campbell. Provider to review Encounters Date Type Specialty Care Team Description 09/21/2022 Orders Only Niecy Herrera, Mariola g Examination Diabetes Mellitus; M.Aysha., M.P.H. 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 Dysfunction Pel swathi Floor Female; Constipation; Infection Urina ry Tract Recurrent 07/02/2022 Orders Only Niecy Herrera, Minal cy Estrogen Post M.D., M.P.H. Menopausal from Last 3 Months Immunizations Name Administration Dates Next Due Influenza TIV (IM) 09/08/2010, 09/26/2007 Influenza, Injectable, Mdck, 11/22/2018 Quadrivalent Influenza, Injectable, Quadrivalent 08/15/2015, 10/24/2014 Influenza, Seasonal, Injectable 09/08/2010, 09/26/2007 Influenza, Unspecified 11/22/2018, 10/22/2016, 08/15/2015, 10/24/2014, 09/08/2010, 09/26/2007 Td (Adult), adsorbed 12/02/2006, 11/23/2000 Td Preservative Free (TENIVAC, 12/02/2006 DECAVAC) Tdap 06/22/2013 influenza vaccine quad 10/10/2019, 10/24/2017, 10/22/2016, (FLUZONE/FLUARIX) (6 months and 10/24/2014 older)(PF) Family History Medical History Relation Name Comments Bladder cancer Brother 1 Smoker Brother 1 Alcohol abuse Brother 2 Heart disease Brother 2 Alcohol abuse Brother 3 Justo Other cancer Brother 3 Justo Bladder Alcohol abuse Brother 4 Peter Alcohol abuse Father Marvin Alcohol user Father Marvin Coronary artery disease Father Marvin Heart attack Father Marvin Smoker Father Pelham Stroke Father Marvin Diabetes Maternal Grandmother Nkechi Anxiety disorder Mother Sonia Emphysema Mother Sonia Hypertension Mother Sonia Smoker Mother Snoia Gluten sensitivity Sister Relation Name Status Comments Brother 1 Brother 2 Brother 3 Justo Brother 4 Peter Father Marvin Maternal Grandmother Nkechi Mother Sonia Sister Social History Tobacco Use Types Packs/Day Years [...] er 09/12/2022 How often do you attend scientology or mandaeism services? Never 05/13/2019 Do you belong to any clubs or organizations such as scientology N o 09/12/2022 groups, unions, fraternal or [...] place to sleep or slept in a alf (including now)? Education Answer Date Recorded What is the highest level of school Bachelor's degree (e.g., BA, AB, 05/13/2019 you have completed or the highest BS) degree you have received? Sex Assigned at Date Recorded Female 11/29/2017 6:36 PM SOCIAL MEDIA COORDINATOR Last Filed Vital Signs Vital Sign Reading Time Taken Comments Blood Pressure 114/69 09/13/2022 11:02 AM CDT Pulse 80 09/13/2022 11:02 AM CDT Temperature 36.4 ??C (97.5 ??F) 01/24/2020 7:36 AM CDT Respiratory Rate 18 06/15/2019 9:45 AM CDT Oxygen Saturation 95% 01/24/2020 7:36 AM CDT Inhaled Oxygen Concentration - - Weight 88 kg (194 lb 0.1 oz) 01/24/2020 7:36 AM CDT Height 173 cm (5' 8.11) 01/24/2020 7:36 AM CDT Body Mass Index 29.4 01/24/2020 7:36 AM CDT Plan of Treatment Upcoming Encounters Date Type Specialty Care Team Description 11/01/2022 Office Visit Urology Regina Black, DIANN, C.N.P. [address] [phone] (Wo rk) Health Maintenance Due Date Last Done Comments Bone Density Scan (Osteoporosis 1955 Screen) CT Colonography 1955 Cologuard 1955 FIT 1955 Mammogram 11/03/2019 11/03/2018, 2017, 10/22/2016, Additional history exists Fasting Glucose for Diabetes 04/17/2020 04/17/2019, 019, Screening 01/30/2018, Additional history exists Lipid (Cholesterol) Screening 04/17/2020 04/17/2019, 2017, 01/12/2017, Additional history exists Thyroid Stimulating Hormone (TSH) 04/17/2020 04/17/2019, , test for thyroid function 01/30/2018, Additional history exists Visit: Annual, age 65+ 01/23/2021 01/24/2020 Depression Screening (Annual 11/14/2021 PHQ-2) Fall Risk Screen (Annual) 11/14/2021 COVID-19 Vaccine (5 - Booster for 06/01/2022 04/06/2022, , Moderna series) 02/19/2021, Additional history exists Influenza Vaccine (#1) 2022 09/26/2021, 09/04/2020, 10/10/2019, Additional history exists DTaP,Tdap,and Td Vaccines (2 - Td 06/22/2023 06/22/2013, , or Tdap) 12/02/2006, Additional history exists Cervical Cancer Screening 04/18/2024 04/18/2019, 04/18/2019 , 10/22/2016 Colonoscopy 08/22/2024 08/22/2014, 08/22/2014, 04/18/2007 Colorectal Cancer Screening 08/22/2024 HIV Screening Completed 02/21/2018 Hepatitis C Screening Completed 02/21/2018, 11/17/2015 Zoster Vaccines Completed 08/12/2021, 06/03/2021 Pneumococcal vaccine (65+ years) Completed 04/06/2022, Insurance Payer Benefit Plan / Subscriber ID Effective Dates Phone Addre ss Type Group AARP AARP MEDICARE [id number] 2021-Present [phone] [address] [address] [place] [address] [phone] [address] (Work) Advance Directives For more information, please contact: [phone] Documents on File Type Date Recorded Patient Manager Of Financial Planning Explanati on Advance Directives 06/06/2015 12:00 AM Legacy doc ument. See document viewer. Care Teams Ornamental Metal Worker Relationship Specialty Start Date End Date Niecy Herrera M.D., M.P.H. PCP - General 08/15/20 [address] [place] [address]
--- OUTSIDE RECORDS SUMMARY | 2022-09-22 13:33 | XMS_ITS | Encounter Summary ---
:1955 Author Organization [facility] Address [address] [place] [address] Care Team Providers Name Role Phone Cindy Alarcon M.D. Primary Care Provider Reason for Referral Outpatient (Routine) - Closed Specialty Diagnoses / Procedures Referred By Contact Refer red To Contact Urology Diagnoses Infection Urinary Tract Recurrent Cindy Alarcon M.D. [facility] Region [address], [facility] [address] [place] [address] Referral ID Status Reason Start Date Expiration Date Visits Requ ested Visits Authorized [id number] Closed 05/01/2019 04/30/2020 1 1 Reason for Visit Reason Onset Date Comments Re-Current UTI's 05/01/2019 Encounter Details Date Type Department Care Team Description 05/01/2019 Clinical Communication Department of Cindy Alarcon Re-C urrent UTI's Count Includes [facility] Internal M.D. Medicine in [address], [address] [place], [place] 300 [facility] [address] [place] [phone] [address] (Fax) [phone] Social History Tobacco Use Types Packs/Day Years [...] er 09/12/2022 How often do you attend orthodox or restoration services? Never 05/13/2019 Do you belong to any clubs or organizations such as orthodox N o 09/12/2022 groups, unions, fraternal or [...] for the very basics like Not h issi at all 09/12/2022 food, housing, medical care, [...] place to sleep or slept in a fci (including now)? Sex Assigned at Date Recorded Female 11/29/2017 6:36 PM ACUPRESSURE THERAPIST documented as of this encounter Miscellaneous Notes Telephone Encounter - Joana Olsen LJuanchoP.N. - 05/02/2019 9:42 AM CDT Noted, thank you. Telephone Encounter - Paulette Miranda - 05/02/2019 9:40 AM CDT Patient is already scheduled Telephone Encounter - Joana Olsen LuJanchoPJuanchoN. - 05/02/2019 9:18 AM CDT Please call patient and assist with scheduling Urology appointment. Thank you. Telephone Encounter - Agnes Bird C.M.A. - 05/01/2019 1:18 PM CDT Left message for patient to call back, referral was placed for urology and she can schedule in [place] or [place]. Telephone Encounter - Cindy Alarcon M.D. - 05/01/2019 11:48 AM CDT Please call her to schedule an appointment with Urology for evaluation recurrent UTI. Order is in EHR. Telephone Encounter - Geovanna Yoo - 05/01/2019 8:27 AM CDT Reason for Communication: Patient is having concerns of recurrent UTI's. Patient's currently on antibiotics and symptoms are improving, but she had a second UTI on Tuesday at [facility] in [place]. Patient would like to be seen in Urology and is asking for an order to be placed. Current Can Nursing/Provider leave a detailed message: Action Needed: Please review, place order, and call patient when ready for scheduling. Name of Medication (if relevant): documented in this encounter Plan of Treatment Upcoming Encounters Date Type Specialty Care Team Description 11/01/2022 Office Visit Urology Regina Black APRN, C.N.P. [address] [phone] (Wo rk) Scheduled Referrals Name Type Priority Associated Diagnoses Order S chedule Urology - Female - Outpatient Referral Routine Infection Urina ry Expected: recurrent urinary Tract Recurrent 019 tract infection (Approximate ), consult (clinic) Expires: 05/01/2022 documented as of this encounter Visit Diagnoses Diagnosis Infection Urinary Tract Recurrent - Prim percy documented in this encounter Additional Health Concerns Assessment Noted Time PHQ-9 Depression Total Score: 2 04/17/2019 10:20 AM CD T documented as of this encounter Care Teams Chemist Biological Relationship Specialty Start Date End Date Cindy Alarcon M.D. PCP - General 04/28/17 08/14/20 documented as of this encounter
--- OUTSIDE RECORDS SUMMARY | 2022-09-22 13:33 | XMS_ITS | Encounter Summary ---
:1955 Author Organization [facility] Address [address] [place] [address] Care Team Providers Name Role Phone Cindy Alarcon M.D. Primary Care Provider Reason for Visit Reason Comments Follow-up Encounter Details Date Type Department Care Team Description 06/16/2019 Documentation Division of Sarita Linares , [place]up Diseases in [place] [address] [place] [address] Social History Tobacco Use Types Packs/Day Years [...] er 09/12/2022 How often do you attend scientologist or gnosticism services? 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 - 06/16/2019 10:35 AM CDT I had the pleasure of speaking with the patient this morning by phone. Earlier this morning, I received a call on the after hours Allergy and Immunology service pager in regards to new cough and nasal congestion that the patient was concerned may be due to a delayed amoxicillin reaction. Please see myearlier note for details regarding this discussion. Since we last spoke, the patient reports that her symptoms did not progress and she did not require evaluation in the emergency department. This morning, she continues to have some degree of cough and nasal congestion and believes this to be due to the early stages of an infection. She otherwise has felt well since our earlier phone call and was in agreement with our earlier assessment that her symptoms were unlikely to be due to the amoxicillin. The patient was grateful for the follow-up phone call and agreed to reach out if additional Allergy and Immunology concerns arise. Sarita Tamez MD Allergy and Immunology Fellow documented in this encounter Plan of Treatment Upcoming Encounters Date Type Specialty Care Team Description 11/01/2022 Office Visit Urology Regina Black APRN, C.N.P. [address] [phone] (Wo rk) documented as of this encounter Visit Diagnoses Not on filedocumented in this encounter Additional Health Concerns Assessment Noted Time PHQ-9 Depression Total Score: 2 04/17/2019 10:20 AM CD T documented as of this encounter Care Teams Sawmill Supervisor Relationship Specialty Start Date End Date Cindy Alarcon M.D. PCP - General 04/28/17 08/14/20 documented as of this encounter
--- OUTSIDE RECORDS SUMMARY | 2022-09-22 13:33 | XMS_ITS | Encounter Summary ---
:1955 Author Organization [facility] Address [address] [place] [address] Care Team Providers Name Role Phone Cindy Alarcon M.D. Primary Care Provider Encounter Details Date Type Department Care Team Description 03/31/2020 Orders Only RST PCP [facility] MNT Cindy Alarcon M. D. Screening Mammogram Breast Cancer; [address], Screening Examination Diabetes Mellitus; [address] Hypothyroidism; [place], [place] [address] Hyperlipidemia Social History Tobacco Use Types Packs/Day Years [...] er 09/12/2022 How often do you attend congregational or taoist services? Never 05/13/2019 Do you belong to any clubs or organizations such as congregational N o 09/12/2022 groups, unions, fraternal or [...] place to sleep or slept in a [place] (including now)? Education Answer Date Recorded What is the highest level of school Bachelor's degree (e.g., BA, AB, 05/13/2019 you have completed or the highest BS) degree you have received? 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 [address] [phone] (Wo rk) documented as of this encounter Visit Diagnoses Diagnosis Screening Mammogram Breast Cancer Screening Examination Diabetes Mellitus Hypothyroidism Hyperlipidemia documented in this encounter Additional Health Concerns Assessment Noted Time PHQ-9 Depression Total Score: 2 04/17/2019 10:20 AM CD T documented as of this encounter Care Teams Product Analyst Relationship Specialty Start Date End Date Cindy Alarcon M.D. PCP - General 04/28/17 08/14/20 documented as of this encounter
--- OUTSIDE RECORDS SUMMARY | 2022-09-22 13:33 | XMS_ITS | Encounter Summary ---
:1955 Author Organization [facility] Address [address] [place] [address] Care Team Providers Name Role Phone Cindy Alarcon M.D. Primary Care Provider Encounter Details Date Type Department Care Team Description 09/20/2019 Clinical Communication Department of Chuy Alarcon M.D. [facility] Internal [address] [facility], Medicine in [address] 300 [facility] [address] [place] [address] Social History Tobacco Use Types Packs/Day Years [...] er 09/12/2022 How often do you attend yarsani or moravian services? 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 - 09/24/2019 11:39 AM CST Spoke with [facility], she stated they had allergy listed of PCN and sulfa but patient has come into the pharmacy and stated she has been tested and is not allergic to either of those so pharmacy removed from their allergy list and dispensed Bactrim. No further needs. STRIAL SALES REPRESENTATIVE Telephone Encounter - Mary Berkowitz - 09/20/2019 9:13 AM CST Reason for Communication: Reanna from [facility] called and stated that they have the pt allergic to both components of Bactrim DS. Current Phone Number: phone:[phone] Can Nursing/Provider leave a detailed message: na Did the patient refuse triage through Nurse line? (for symptom based concerns): na Action Needed: please call p[harmacy and advise Name of Medication (if relevant): Bactrim DS STRIAL SALES REPRESENTATIVE documented in this encounter Plan of Treatment Upcoming Encounters Date Type Specialty Care Team Description 11/01/2022 Office Visit Urology Regina Black, DIANN, C.N.P. [address] [place], [place] [phone] (Wo rk) documented as of this encounter Visit Diagnoses Not on filedocumented in this encounter Additional Health Concerns Assessment Noted Time PHQ-9 Depression Total Score: 2 04/17/2019 10:20 AM CD T documented as of this encounter Care Teams Fine Grade Operator Relationship Specialty Start Date End Date Cindy Alarcon M.D. PCP - General 04/28/17 08/14/20 documented as of this encounter
--- OUTSIDE RECORDS SUMMARY | 2022-09-22 13:33 | XMS_ITS | Encounter Summary ---
:1955 Author Organization [facility] Address [address] [place] [address] Care Team Providers Name Role Phone Cindy Alarcon M.D. Primary Care Provider Encounter Details Date Type Department Care Team Description 09/28/2019 Orders Only Pharmacy Prior Auth RO Dahlia Galaviz [phone] Social History Tobacco Use Types Packs/Day Years [...] How often do you attend orthodox or mandaen services? Never 05/13/2019 Do you belong to [...] place to sleep or slept in a m[facility]p (including now)? Education Answer Date Recorded What is the highest level of school Bachelor's degree (e.g., BA, AB, 05/13/2019 you have completed or the highest BS) degree you have received? 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 [address] [phone] (Wo rk) documented as of this encounter Visit Diagnoses Not on filedocumented in this encounter Additional Health Concerns Assessment Noted Time PHQ-9 Depression Total Score: 2 04/17/2019 10:20 AM CD T documented as of this encounter Care Teams Customer Advisor Relationship Specialty Start Date End Date Cindy Alarcon M.D. PCP - General 04/28/17 08/14/20 documented as of this encounter
--- OUTSIDE RECORDS SUMMARY | 2022-09-22 13:33 | XMS_ITS | Encounter Summary ---
:1955 Author Organization [facility] Address [address] [place] [address] Care Team Providers Name Role Phone Cindy Alarcon M.D. Primary Care Provider Encounter Details Date Type Department Care Team Description 09/18/2019 Hospital Encounter Department of Regina Black D [facility] [place] [place] [address] [phone] [phone] Social History Tobacco Use Types Packs/Day Years [...] er 09/12/2022 How often do you attend faith or yazidi services? Never 05/13/2019 Do you belong to any clubs or organizations such as faith N o 09/12/2022 groups, unions, fraternal or [...] at Date Recorded Female 11/29/2017 6:36 PM POWER NUT RUNNER OPERATOR documented as of this encounter Medications at Time of Discharge Medication Sig Dispensed Refills Start Date End Date cholecalciferol (VITAMIN Take 1 capsule by 0 D3) 50 mcg (2,000 Unit) mouth daily. capsule clonazePAM (for_KlonoPIN) Take 1 tablet (1 mg 30 tablet 0 1 12/21/2016 1 mg tablet total) by mouth daily as needed for anxiety. cranberry extract Take 500 mg by 0 06/20/2019 (CRAN-MAX) 500 mg capsule mouth. capsule HYPROMELLOSE (SYSTANE GEL Administer 1 drop 0 09/2016 OPHT) into both eyes 2 (two) times a day. miscellaneous medical autoSV, heated 0 09/20/2014 supply [facility] humidifier, mask, headgear, filters and tubing. Length of Need: 99 PNV NO.95/FERROUS Take 1 tablet by 0 10/22/2016 FUM/FOLIC AC ( mouth daily. MULTIVITAMINS ORAL) SYNTHROID 75 mcg tablet Take 1 tablet (75 90 tablet 3 05/29 mcg total) by mouth every morning before breakfast. B complex-vitamins Take 1 tablet by 0 11/12/2020 (BALANCE B-50) tablet mouth daily. busPIRone (for_BUSPAR) 10 Take 10 mg by mouth 0 11/12/2020 mg tablet 3 (three) times a day. DOCOSAHEXANOIC ACID/EPA Take 1 capsule by 0 11/12/2020 (FISH OIL ORAL) mouth daily. Lactobacillus rhamnosus Take 1 capsule by 0 11/12/2020 GG-inulin (CULTURELLE) 10 mouth 2 (two) times billion cell -200 mg per a day with meals. sprinkle capsule Open capsule and mix until dissolved in a cool beverage or sprinkle onto applesauce. Mix until dissolved. raNITIdine (ZANTAC Take by mouth. As 0 11/12/2020 MAXIMUM STRENGTH) 150 mg needed tablet documented as of this encounter Plan of Treatment Upcoming Encounters Date Type Specialty Care Team Description 11/01/2022 Office Visit Urology Regina Black APRN, C.N.P. [address] [place], [place] [phone] (Wo rk) documented as of this encounter Procedures Procedure Name Priority Date/Time Associated Comments Diagnosis BACTERIAL CULTURE, Routine 09/18/2019 10:08 Dysuria Resul ts for this AEROBIC + SUSC, URINE AM POWER NUT RUNNER OPERATOR proced ure are in the results section. URINALYSIS WITH Routine 09/18/2019 10:08 Dysuria Results for this MICROSCOPIC AM POWER NUT RUNNER OPERATOR procedure are i n the results section. documented in this encounter Results (ABNORMAL) Urinalysis with Microscopic: Urine, Midstream (09/18/2019 10:08 AM POWER NUT RUNNER OPERATOR) P athologist Signature Source Midstream 09/18/2019 FB60 10:24 AM POWER NUT RUNNER OPERATOR Clarity Cloudy (A) Clear 09/18/2019 FB60 10:24 AM POWER NUT RUNNER OPERATOR Color Yellow 09/18/2019 FB60 10:24 AM POWER NUT RUNNER OPERATOR Comment: ----REFERENCE VALUE---- Colorless Yellow Lauren Blood Small (A) Negative 09/18/2019 10:24 AM POWER NUT RUNNER OPERATOR FB60 Nitrite Negative Negative 09/18/2019 10:24 AM POWER NUT RUNNER OPERATOR FB60 Leukocyte Esterase Large (A) Negative 09/18/2019 10:[address] FB60 Protein Negative mg/dL 09/18/2019 10:24 AM POWER NUT RUNNER OPERATOR FB60 Comment: ----REFERENCE VALUE---- Negative Trace Glucose Negative Negative mg/dL 09/18/2019 10:24 AM POWER NUT RUNNER OPERATOR F B60 Ketones, QI(U) Negative Negative mg/dL 09/18/2019 10:24 AM POWER NUT RUNNER OPERATOR FB60 Bilirubin Negative Negative 09/18/2019 10:24 AM POWER NUT RUNNER OPERATOR FB60 pH 6.5 5.0 - 8.0 09/18/2019 10:24 AM POWER NUT RUNNER OPERATOR FB60 Specific [place] 1.010 1.001 - 1.035 09/18/2019 10:24 AM POWER NUT RUNNER OPERATOR FB60 Urobilinogen 0.2 0.2 - 1.0 mg/dL 09/18/2019 10:[address] FB60 White Blood Cells 41-50 (A) /hpf 09/18/2019 10:26 AM CS T FB60 Comment: ----REFERENCE VALUE---- Males: 0-3 Females: 0-10 Unknown: 0-10 Red Blood Cells None Seen 0 - 2 /hpf 09/18/2019 10:26 AM POWER NUT RUNNER OPERATOR FB60 Bacteria Present (A) None Seen 09/18/2019 10:26 AM POWER NUT RUNNER OPERATOR FB60 Specimen Anatomical Collection Method Collection Time Receive d Time (Source) Location / / Volume Laterality Urine (Urine, 09/18/2019 10:08 09/18/2019 Midstream) AM POWER NUT RUNNER OPERATOR 10:16 AM POWER NUT RUNNER OPERATOR Regina Black APRN C.N.PJuancho LAB URINE ORDERABLES Performing Organization Address City/State/ZIP Code Phon e Number [facility] [place] [address] [facility] FB60 [place] [address] System in [address] (ABNORMAL) Bacterial Culture, Aerobic + Susc, Urine (09/18/2019 10:08 AM POWER NUT RUNNER OPERATOR) Component Value Ref Test Analysis Performed At Patholo gist Range Method Time Signature Urine Culture STAPHYLOCOCCUS LUGDUNENSIS 9 MKTO >100,000 cfu/mL 7:41 AM POWER NUT RUNNER OPERATOR (A) Specimen Anatomical Collection Method Collection Time Receive d Time (Source) Location / / Volume Laterality Urine (Urine, 09/18/2019 10:08 09/18/2019 2:27 Midstream) AM POWER NUT RUNNER OPERATOR PM POWER NUT RUNNER OPERATOR Comment: Specimen Source Site: Urine Organism Antibiotic Method Susceptibility Staphylococcus lugdunensis Oxacillin SUSCEPTIBILITY, DINORAH 2 mcg/mL: Susceptible (MCG/ML) Comment: Use oxacillin interpretation to predict results for anti-staphylococcal beta-lac [place] antibiotics (except ceftaroline). Staphylococcus Gentamicin SUSCEPTIBILITY, DINORAH <=0.5 mcg/mL : lugdunensis (MCG/ML) Susceptible Staphylococcus Ciprofloxacin SUSCEPTIBILITY, DINORAH <=0.5 mcg/mL : lugdunensis (MCG/ML) Susceptible Staphylococcus Levofloxacin SUSCEPTIBILITY, DINORAH 0.25 mcg/mL: lugdunensis (MCG/ML) Susceptible Staphylococcus Moxifloxacin SUSCEPTIBILITY, DINORAH <=0.25 mcg/m L: lugdunensis (MCG/ML) Susceptible Staphylococcus Linezolid SUSCEPTIBILITY, DINORAH 2 mcg/mL: Argueta sceptible lugdunensis (MCG/ML) Staphylococcus Daptomycin SUSCEPTIBILITY, DINORAH 0.5 mcg/mL: lugdunensis (MCG/ML) Susceptible Staphylococcus Vancomycin SUSCEPTIBILITY, DINORAH <=0.5 mcg/mL : lugdunensis (MCG/ML) Susceptible Staphylococcus Doxycycline SUSCEPTIBILITY, DINORAH <=0.5 mcg/mL : lugdunensis (MCG/ML) Susceptible Staphylococcus Tetracycline SUSCEPTIBILITY, IDNORAH <=1 mcg/mL: lugdunensis (MCG/ML) Susceptible Staphylococcus Nitrofurantoin SUSCEPTIBILITY, DINORAH <=16 mcg/mL: lugdunensis (MCG/ML) Susceptible Staphylococcus Rifampin SUSCEPTIBILITY, DINORAH <=0.5 mcg/mL : lugdunensis (MCG/ML) Susceptible Comment: Rifampin should not be used as monotherapy Staphylococcus Trimethoprim + SUSCEPTIBILITY, DINORAH <=10 mcg/mL: lugdunensis Sulfamethoxazole (MCG/ML) Susceptible Regina Black APRN C.NJuanchoPJuancho LAB MICROBIOLOGY - [facility] ORDERABLES Performing Organization Address [facility]/State/ZIP [facility] [place] [place] Phon e Number [facility]- [address] [place] [id number] [place] [address] documented in this encounter Visit Diagnoses Diagnosis Dysuria documented in this encounter Additional Health Concerns Assessment Noted Time PHQ-9 Depression Total Score: 2 04/17/2019 10:20 AM CD T documented as of this encounter Care Teams Rotary Shear Worker Helper Relationship Specialty Start Date End Date Cindy Alarcon M.D. PCP - General 04/28/17 08/14/20 documented as of this encounter
--- OUTSIDE RECORDS SUMMARY | 2022-09-22 13:33 | XMS_ITS | Encounter Summary ---
:1955 Author Organization [facility] Address [address] [place] [address] Care Team Providers Name Role Phone Cindy Alarcon M.D. Primary Care Provider Reason for Visit Reason Comments Allergy Testing PCN Encounter Details Date Type Department Care Team Description 06/15/2019 Clinical Support Division of Allergic Alexandra, Xochitl Snowden M.D. Allergy Antibiotic Diseases in [facility] Letitia J, R.N. [address] [place] [address] Personal History [place], [place] [address] [place] [address] Social History Tobacco Use Types Packs/Day Years [...] er 09/12/2022 How often do you attend denominational or advent services? Never 05/13/2019 Do you belong to any clubs or organizations such as denominational N o 09/12/2022 groups, unions, fraternal or [...] place to sleep or slept in a group home (including now)? Education Answer Date Recorded What is the highest level of school Bachelor's degree (e.g., BA, AB, 05/13/2019 you have completed or the highest BS) degree you have received? 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 [address] [phone] (Wo rk) documented as of this encounter Visit Diagnoses Diagnosis Allergy Antibiotic Personal History documented in this encounter Additional Health Concerns Assessment Noted Time PHQ-9 Depression Total Score: 2 04/17/2019 10:20 AM CD T documented as of this encounter Care Teams Production Packager Relationship Specialty Start Date End Date Cindy Alarcon M.D. PCP - General 04/28/17 08/14/20 documented as of this encounter
--- OUTSIDE RECORDS SUMMARY | 2022-09-22 13:33 | XMS_ITS | Encounter Summary ---
:1955 Author Organization [facility] Address [address] [place] [address] Care Team Providers Name Role Phone Cindy Alarcon M.D. Primary Care Provider Reason for Visit Reason Onset Date Comments Medical Information 01/23/2020 Encounter Details Date Type Department Care Team Description 01/23/2020 Clinical Department of Cindy Alarcon Medical Inform ation Communication [facility] Internal M.DJuancho Medicine in [address] [place] [address] Mónica Leon, [facility] [address] [place], [place] 300 [facility] [address] [place] [phone] [address] (Fax) [phone] Social History Tobacco Use Types Packs/Day Years [...] er 09/12/2022 How often do you attend restoration or mormon services? Never 05/13/2019 Do you belong to any clubs or organizations such as restoration N o 09/12/2022 groups, unions, fraternal or [...] place to sleep or slept in a custodial (including now)? Education Answer Date Recorded What is the highest level of school Bachelor's degree (e.g., BA, AB, 05/13/2019 you have completed or the highest BS) degree you have received? 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 - 01/24/2020 9:46 AM CDT Faxed Telephone Encounter - Sivan Herzog C.MMainor - 01/23/2020 2:53 PM CDT This be faxed after she has her appt on the Telephone Encounter - Yannick Rodriguez - 01/23/2020 2:39 PM CDT Reason for Communication: [facility] called and they would like the completed paperwork forthe pre-op physical that the patient has on 01/23 with georgette, faxed to them at [phone] Current Phone Number: Can Nursing/Provider leave a detailed message: Did the patient refuse triage through Nurse line? (for symptom based concerns): Action Needed: Name of Medication (if relevant): documented in this encounter Plan of Treatment Upcoming Encounters Date Type Specialty Care Team Description 11/01/2022 Office Visit Urology Regina Black, DIANN, C.N.P. [address] [place], [place] [phone] (Wo rk) documented as of this encounter Visit Diagnoses Not on filedocumented in this encounter Additional Health Concerns Assessment Noted Time PHQ-9 Depression Total Score: 2 04/17/2019 10:20 AM CD T documented as of this encounter Care Teams Tool Crib Attendant Relationship Specialty Start Date End Date Cindy Alarcon M.D. PCP - General 04/28/17 08/14/20 documented as of this encounter
--- OUTSIDE RECORDS SUMMARY | 2022-09-22 13:33 | XMS_ITS | Encounter Summary ---
:1955 Author Organization [facility] Address [address] [place] [address] Care Team Providers Name Role Phone Cindy Alarcon M.D. Primary Care Provider Reason for Visit Outpatient (Routine) - Closed Specialty Diagnoses / Procedures Referred By Contact Refer red To Contact Sleep Medicine Trey Ac III, [place] M.D. [address] [place] [address] Referral ID Status Reason Start Date Expiration Date Visits Requ ested Visits Authorized [id number] Closed 03/31/2018 09/27/2018 1 1 Encounter Details Date Type Department Care Team Description 06/08/2019 Office Visit [facility] O[facility]io, Apnea Sleep Obstructive (Primary Dx); Medicine in Trey Quijano III, Insomnia; [place], [place] Pepper Depression Anxiety; 200 [facility] 200 [facility] Thyroidectomy Partial Status Post; [place], [place] Hypothyroidis m On Replacement [phone] Social History Tobacco Use Types Packs/Day Years [...] er 09/12/2022 How often do you attend yazidism or sabianist services? 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 - 06/08/2019 11:30 AM CDT Images from the original note were not included. SUBJECTIVE CHIEF COMPLAINT/REASON FOR VISIT I met with Ms. Oliveros to follow up on management of obstructive sleep apnea with CPAP. She says ???Igot my life back?? when you treated my obstructive sleep apnea well. HISTORY OF PRESENT ILLNESS Emelyn Oliveros is a 63 y.o. female reports that she is doing extremely much better with the adjustment we made in her treatment last year compared to before. She had been put on BiPAP auto SV advanced system with very high pressure is and was not able to tolerate or benefit from the treatment. Last year after initial consultation with the sleep laboratory study on January 12, 2018 and an AHI of 26 RDI of 33 significantly worse on back but no REM acquired on back and grade 3 snoring confirmed obstructive sleep apnea, and she actually did quite well in the lab on CPAP at 6 cm of water pressure. We adjusted the device she already had to 6 cm of water pressure so that the maximum minimum EPAP was 6 cm maximum pressure was 10 cm. She says she is sleeping more and more hours and feeling more more restored. This is the download from her device: Current Outpatient Medications Medication Sig Dispense Refill ??? busPIRone (for_BUSPAR) 10 mg tablet Take 10 mg by mouth 3 (three) times a day. ??? cholecalciferol (VITAMIN D3) 2,000 Unit capsule Take 1 capsule by mouth daily. ??? clonazePAM (for_KlonoPIN) 1 mg tablet Take 1 tablet (1 mg total) by mouth daily as needed for anxiety. 30 tablet 0 ??? HYPROMELLOSE (SYSTANE GEL OPHT) Administer 1 drop into both eyes 2 (two) times a day. ??? Lactobacillus rhamnosus GG-inulin (CULTURELLE) 10 billion cell -200 mg per sprinkle capsule Take1 capsule by mouth 2 (two) times a day with meals. Open capsule and mix until dissolved in a cool beverage or sprinkle onto applesauce. Mix until dissolved. ??? miscellaneous medical supply misc autoSV, heated humidifier, mask, headgear, filters and tubing.Length of Need: 99 ??? PNV NO.95/FERROUS FUM/FOLIC AC ( MULTIVITAMINS ORAL) Take 1 tablet by mouth daily. ??? raNITIdine (ZANTAC MAXIMUM STRENGTH) 150 mg tablet Take by mouth. As needed ??? SYNTHROID 75 mcg tablet Take 1 tablet (75 mcg total) by mouth every morning before breakfast. 90tablet 3 ??? B complex-vitamins (BALANCE B-50) tablet Take 1 tablet by mouth daily. ??? DOCOSAHEXANOIC ACID/EPA (FISH OIL ORAL) Take 1 capsule by mouth daily. No current facility-administered medications for this visit. ROS Reviewed encounter review of systems and pertinent responses are noted in the history ESS=3 IRLS=0 OBJECTIVE Blood Pressure: 116/64 (05/14/2019 8:23 AM) Temperature: 36.9 ??C (05/14/2019 8:23 AM) Temp Source: Temporal (05/14/2019 8:23 AM) Pulse Rate: 81 (05/14/2019 8:23 AM) BMI (Calculated): 29.5 kg/m?? (06/08/2019 10:59 AM) Height: 169.5 cm (06/08/2019 10:59 AM) Weight: 84.7 kg (06/08/2019 10:59 AM) PHYSICAL EXAM Neck circumference 38 cm. She is alert and oriented, cooperative reliable, without evidence of cognitive, thought, perceptual,or significant mood disorder. She is highly insightful and motivated handling the complexities of optimizing treatment for obstructive sleep apnea. ASSESSMENT / PLAN #1 Apnea Sleep Obstructive #2 Insomnia #3 Depression Anxiety #4 Thyroidectomy Partial Status Post #5 Hypothyroidism On Replacement Overall her clinical response and the download from her device indicates excellent utilization and benefit. There is a residual AHI frequently in the low double digits on the setting of 6 cm expiratorysupport which is basically a 6 cm CPAP setting. I increased the maximum expiratory support to 8 cm of water, and the maximum to 12 cm from 10. I asked her to let me know if she notices any significant difference. I provided a prescription based on her sleep laboratory study of January 12, 2018 which showed an overall AHI of 26. Because she wants to continue to use her machine until she needs a new 1, the prescription was in the form of adjusting her BiPAP auto SV advanced to supply a CPAP of 8 cm of water. I told her it is time for new machine at would want to do a different prescription which would be for auto PAP set for CPAP pressure of 8 cm of water if that is working well for her. Will see her again as needed. I talked to her about the changes that will happen in the prescriptionprocess when she becomes Medicare age. She is in the midst of getting tested for antibiotic sensitivity since she has had UTI s that have required different antibiotics than are usually used for UTIs. She is also planning to have right shoulder surgery in the near future. She is aware of the importance of her team being cognizant of the fact that she has obstructive sleep apnea to be managed in the perioperative period. I personally spent over half of a total 25 minutes face to face with the patient in counseling and discussion and/or coordination of care as described above. Electronically signed by Trey Ac M.D. 06/08/19 Answers for HPI/ROS submitted by the patient on 06/05/2019 No general issues: Yes No eye issues: Yes No ENT issues: Yes No heart issues: Yes No respiratory issues: Yes Abdominal (belly) pain or cramping: Yes Constipation: Yes Back pain/stiffness: Yes Change in mole or skin spot: Yes Headache: Yes No mental health issues: Yes No blood/lymph issues: Yes No urinary/reproductive issues: Yes documented in this encounter Plan of Treatment Upcoming Encounters Date Type Specialty Care Team Description 11/01/2022 Office Visit Urology Regina Black APRN, C.N.P. [address] [phone] ([facility]) documented as of this encounter Visit Diagnoses Diagnosis Apnea Sleep Obstructive - Primary Insomnia Depression Anxiety Thyroidectomy Partial Status Post Hypothyroidism On Replacement documented in this encounter Additional Health Concerns Assessment Noted Time PHQ-9 Depression Total Score: 2 04/17/2019 10:20 AM CD T documented as of this encounter Care Teams Thread Trimmer Relationship Specialty Start Date End Date Cindy Alarcon M.D. PCP - General 04/28/17 08/14/20 documented as of this encounter
--- OUTSIDE RECORDS SUMMARY | 2022-09-22 13:33 | XMS_ITS | Encounter Summary ---
:1955 Author Organization [facility] Address [address] [place] [address] Care Team Providers Name Role Phone Cindy Alarcon M.D. Primary Care Provider Encounter Details Date Type Department Care Team Description 09/20/2019 Orders Only Department of [place]rology in [place], [place] CAR LOADER, C.N.P. [address] [place] [address] [place] [phone] (Wo rk) Social History Tobacco Use Types [...] How often do you attend adventism or zoroastrianism services? 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 [address] [phone] (Wo rk) documented as of this encounter Visit Diagnoses Not on filedocumented in this encounter Additional Health Concerns Assessment Noted Time PHQ-9 Depression Total Score: 2 04/17/2019 10:20 AM CD T documented as of this encounter Care Teams [employer] Relationship Specialty Start Date End Date Cindy Alarcon M.D. PCP - General 04/28/17 08/14/20 documented as of this encounter
--- OUTSIDE RECORDS SUMMARY | 2022-09-22 13:33 | XMS_ITS | Encounter Summary ---
:1955 Author Organization [facility] Address [address] [place] [address] Care Team Providers Name Role Phone Cindy Alarcon M.D. Primary Care Provider Reason for Visit Reason Comments Follow-up Encounter Details Date Type Department Care Team Description 06/16/2019 Documentation Division of Sarita Linares , Follow[place]up Diseases in [place] [address] [place] [phone] Social History Tobacco Use Types Packs/Day [...] er 09/12/2022 How often do you attend yazidi or congregation services? Never 05/13/2019 Do you belong to any clubs or organizations such as yazidi N o 09/12/2022 groups, unions, fraternal or [...] place to sleep or slept in a jail (including now)? Education Answer Date Recorded What is the highest level of school Bachelor's degree (e.g., BA, AB, 05/13/2019 you have completed or the highest BS) degree you have received? 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 - 06/16/2019 12:15 AM CDT At approximately 12:05 this morning, I received a call from this patient on the after hours Allergy and Immunology service pager. The patient had been seen in the Allergy and Immunology Clinic yesterday for penicillin skin testing and a single-step (250 mg) amoxicillin challenge approximately 15 hoursprior to this phone call, which she had passed and from which she had been discharged after a 1 hourobservation period. The patient reported that she had been feeling her normal self up until 20 minutes ago, when she woke up with cough, nasal congestion, and a sense of feeling unwell. There was no associated urticaria, angioedema, difficulty swallowing or breathing, other respiratory or gastrointes tinal symptoms. She admitted to having significant anxiety, especially about the challenge, and was inquiring about whether or not these symptoms could be due to the amoxicillin and if evaluation in the ED was warranted. In addition to this, she shared that she wears a CPAP nightly and this could alsobe contributing to her symptoms. We discussed that given the time course of her symptoms, an acute reaction to amoxicillin would be unlikely. We reviewed the signs and symptoms of anaphylaxis and the patient was encouraged to seek emergency care should her symptoms become progressive, include difficulty breathing or swallowing, or with additional questions or concerns. The patient inquired about the utility of Benadryl, which I shared may or may not help with her symptoms. The patient was reassured by our conversation, and at the conclusion of the phone call was planning on chilling out and monitoring symptoms at home. The patient was aware that she could call back at anytime with any other concerns. Sarita Tamez MD Allergy and Immunology Fellow documented in this encounter Plan of Treatment Upcoming Encounters Date Type Specialty Care Team Description 11/01/2022 Office Visit Urology [place]ina Black APRN, C.N.P. [address] [phone] (Wo rk) documented as of this encounter Visit Diagnoses Not on filedocumented in this encounter Additional Health Concerns Assessment Noted Time PHQ-9 Depression Total Score: 2 04/17/2019 10:20 AM CD T documented as of this encounter Care Teams Bleach Chlorinator Relationship Specialty Start Date End Date Cindy Alarcon M.D. PCP - General 04/28/17 08/14/20 documented as of this encounter
--- OUTSIDE RECORDS SUMMARY | 2022-09-22 13:33 | XMS_ITS | Encounter Summary ---
:1955 Author Organization [facility] Address [address] [place] [address] Care Team Providers Name Role Phone Cindy Alarcon M.D. Primary Care Provider Reason for Referral Specialty Diagnoses / Procedures Referred By Contact Refer red To Contact Xochitl Morris M.D. [place] [facility] [place] Referral ID Status Reason Start Date Expiration Date Visits Requ ested Visits Authorized Specialty Diagnoses / Procedures Referred By Contact Refer red To Contact Xochitl Morris M.D. [place] R egion Referral ID Status Reason Start Date Expiration Date Visits Requ ested Visits Authorized Reason for Visit Reason Comments Medication Reaction Outpatient (Routine) - Closed Specialty Diagnoses / Procedures Referred By Contact Refer alberto To Contact Allergy and Immunology Diagnoses Allergy Antibiotic Personal History Cindy Alarcon M.D. [address] [place] [address] Referral ID Status Reason Start Date Expiration Date Visits V isits Requested Authorized [id number] Closed Specialty 04/30/2019 04/29/2020 1 1 Services Required Encounter Details Date Type Department Care Team Description 06/08/2019 Comprehensive Visit Division of Xochitl Morris Aller gy Antibiotic Allergic Diseases [facility] [place], [place] [address] [place] [phone] Social History Tobacco Use Types Packs/Day Years [...] er 09/12/2022 How often do you attend voodoo or yarsani services? 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 - 06/08/2019 2:00 PM CDT Referral: Cindy Alarcon M.D. [address] [place] [phone] CC: Drug allergy HPI: Emelyn Oliveros is a 63 y.o.-year-old female with history of drug allergy, hypothyroidism, ABRAHAN, GERD currently presenting for evaluation of penicillin and sulfa allergies. She is accompanied today by her partner and is coming to visit us from [place], [place]. For the last 2 months Ms. Oliveros had 2 UTIs and was placed on levaquin and ciprofloxacin after whichshe developed side effects of fatigue, depression and GI issues. Additionally, this fall she will have her shoulder replaced. Given these medical issues it is anticipated she is interested in having her allergies cleared so she has more options for antibiotics in the future. She had an allergic reaction to amoxicillin in 2003 for a sinus infection. She developed hives from the neck down within a few hours. No difficulty breathing, vomiting, diarrhea, lip or tongue swelling, or fainting. She was notably on doxepin at the time. She went to her doctor's office after the development of her symptoms where she received a steroid shot and oral prednisone but she doesn't quite remember what she was treated with. Reaction to sulfa happened several years ago in the 70s or 80s. She does not recall the specific antibiotic, thinks she was getting treated for UTI and she developed a rash on her legs after a couple of hours of receiving the dose. She does not think it was the first dose of the medicine. She did not have any other symptoms besides the rash. She has not had any sulfa drugs since. PMH: anxiety, hypothyroidism. She is allergic to cats and dust. No food allergies. No history of asthma. sensitive to soap. Med: synthroid, buspirone, clonipin, vitamins FMH: sister with severe seasonal allergies, food allergies. : [place], no pets in the home Allergies Allergen Reactions ??? Amoxicillin Hives and Rash ??? Ampicillin Hives ??? Antibiotic Cream Rash ??? Bupropion Hcl Tinnitus ??? Chlorhexidine Rash ??? Fluoxetine Hives FLUOXETINE HCL - Prozac ??? Ibuprofen GI bleeding ??? Iron,Carbonyl-Vitamin C Other (see comments) ??? Nsaids (Non-Steroidal Anti-Inflammatory Drug) GI bleeding ??? Penicillins Hives PENICILLINS ??? Sertraline GI intolerance bruxism and constipation at high doses ??? Sulfa (Sulfonamide Antibiotics) Rash SULFA DRUGS ??? Tape [Adhesive Tape-Silicones] Rash Current Outpatient Medications on File Prior to Visit Medication Sig Dispense Refill ??? B complex-vitamins (BALANCE B-50) tablet Take 1 tablet by mouth daily. ??? busPIRone (for_BUSPAR) 10 mg tablet Take 10 mg by mouth 3 (three) times a day. ??? cholecalciferol (VITAMIN D3) 2,000 Unit capsule Take 1 capsule by mouth daily. ??? clonazePAM (for_KlonoPIN) 1 mg tablet Take 1 tablet (1 mg total) by mouth daily as needed for anxiety. 30 tablet 0 ??? DOCOSAHEXANOIC ACID/EPA (FISH OIL ORAL) Take 1 capsule by mouth daily. ??? HYPROMELLOSE (SYSTANE GEL OPHT) Administer 1 [...] mouth every morning before breakfast. 90tablet 3 No current facility-administered medications on file prior to visit. Patient Active Problem List Diagnosis ??? Necrosis Avascular Humeral Head Right (HCC) ??? Osteopenia ??? Abnormal Pap Smear Personal History ??? Anemia Iron Deficiency ??? Malignant Neoplasm Of Skin Basal Cell Carcinoma ??? Cancer Thyroid Family History ??? Primary Central Sleep Apnea ??? Cyst Sebaceous ??? Gastroesophageal Reflux Disease ??? Diverticulosis Colon ??? Elevated Liver Function Test ??? Fracture Shoulder Closed Subsequent ??? Hernia Hiatal ??? High Risk Medication ??? Hyperkalemia ??? Hyperlipidemia ??? Hyponatremia ??? Impaired Fasting Glucose ??? Insomnia ??? Keratosis Seborrheic Inflamed ??? Depression Anxiety ??? Nodule Thyroid ??? Apnea Sleep Obstructive ??? Pain Shoulder Right ??? Rosacea ??? Rotator Cuff Disorder Left ??? Thyroidectomy Partial Status Post ??? Tinnitus Bilateral ??? Hypothyroidism On Replacement ??? Pain Hip Bilateral ??? Primary Osteoarthritis Shoulder Right ??? Cancer Skin Basal Cell Personal History ??? Anxiety Generalized Disorder ??? Idiopathic Aseptic Necrosis Right Humerus (HCC) ??? Infection Urinary Tract Escherichia Coli Review of systems: Complete review of systems was negative except for what is noted in the HPI. Past Medical History: Past Medical History: Diagnosis Date ??? Abnormal Pap Smear Personal History 11/17/2015 ??? Anemia Iron Deficiency 08/15/2015 ??? Anxiety 01/12/2016 ??? Apnea Sleep Obstructive 09/20/2014 ??? Cancer Skin Basal Cell Personal History 01/29/2018 ??? Cancer Thyroid Family History 01/12/2016 ??? Cyst Sebaceous 02/11/2017 ??? Depression Anxiety 01/03/2009 ??? Diverticulosis Colon 08/22/2014 ??? Elevated Liver Function Test 01/12/2016 ??? Gastroesophageal Reflux Disease 11/17/2015 ??? Hemorrhoids Internal 08/22/2014 ??? Hernia Hiatal 01/12/2016 ??? Hyperkalemia 01/12/2016 ??? Hyperlipidemia 11/17/2015 ??? Hyponatremia 08/15/2015 ??? Hypothyroidism On Replacement 01/29/2018 ??? Impaired Fasting Glucose 11/17/2015 ??? Insomnia 11/15/2017 ??? Keratosis Seborrheic Inflamed 02/11/2017 ??? Malignant Neoplasm Of Skin Basal Cell Carcinoma 01/12/2016 ??? Necrosis Avascular Humeral Head Right (HCC) 11/15/2017 ??? Nodule Thyroid 01/12/2016 ??? Osteopenia 11/17/2015 ??? Pain Hip Bilateral 01/29/2018 ??? Primary Central Sleep Apnea 09/20/2014 ??? Primary Osteoarthritis Shoulder Right 01/29/2018 ??? Rosacea 01/12/2016 ??? Rotator Cuff Disorder Left 11/15/2017 ??? Tinnitus Bilateral 12/30/2017 Past Surgical History: Procedure Laterality Date ??? BREAST BIOPSY Left Negative ??? BREAST FIBROADENOMA SURGERY Left ??? COLONOSCOPY 08/22/2014 Complicated with perforation. Repeat in 10 years. [place], [place] ??? DILATATION AND CURETTAGE ??? ESOPHAGOGASTRODUODENOSCOPY 08/22/2014 ??? STRABISMUS SURGERY Bilateral 1985 ??? THYROIDECTOMY, PARTIAL Right 06/06/2015 Right thyroid lobectomy and isthmusectomy. ??? TONSILLECTOMY Family History: Family History Problem Relation Age of Onset ??? Heart attack Father ??? Coronary artery disease Father ??? Stroke Father ??? Alcohol user Father ??? Smoker Father ??? Bladder cancer Brother ??? Smoker Brother ??? Emphysema Mother ??? Hypertension Mother ??? Smoker Mother ??? Gluten sensitivity Sister ??? Diabetes Maternal Grandmother ??? Heart disease Brother ??? Alcohol abuse Brother Social History: Social History Socioeconomic History ??? Marital status: Spouse name: Not on file ??? Number of children: Not on file ??? Years of education: Not on file ??? Highest education level: Bachelor's degree (e.g., BA, AB, BS) Occupational History Employer: [employer] Social Needs ??? Financial resource strain: Not hard at all ??? Food insecurity: Worry: Never true Inability: Never true ??? Transportation needs: Medical: No Non-medical: No Tobacco Use ??? Smoking status: Never Smoker ??? Smokeless tobacco: Never Used Substance and Sexual Activity ??? Alcohol use: Yes Frequency: Monthly or less Drinks per session: 1 or 2 Binge frequency: Never Comment: Social ??? Drug use: No ??? Sexual activity: Yes Partners: Male control/protection: Post-menopausal Comment: No history of STDs. + history of abnormal pap smear in 1997 requiring colposcopy. All normal pap smears since them. + new partner in the last year, Lifestyle ??? Physical activity: Days per week: 4 days Minutes per session: 30 min ??? Stress: Only a little Relationships ??? Social connections: Talks on phone: More than three times a week Gets together: More than three times a week Attends yarsani service: Never Active member of club or organization: No Attends meetings of clubs or organizations: Never Relationship status: ??? Intimate partner violence: Fear of current or ex partner: Not on file Emotionally abused: Not on file Physically abused: Not on file Forced sexual activity: Not on file Other Topics Concern ??? Not on file Social History Narrative ??? Not on file Physical Exam: There were no vitals filed for this visit. General: Alert, interactive, no distress. Eyes: Normal sclera; pupils equal and round; no ocular discharge ENT: Tympanic membranes normal; No rhinorrhea; Mucous membranes moist; No oropharyngeal lesions. Lymph: No cervical or supraclavicular lymphadenopathy. Cardiac: Regular rate & rhythm; no murmurs, rubs, or gallops. Pulm: Clear to auscultation bilaterally, no wheezes, good aeration to the bases. Abd: Soft, nontender, nondistended, normal bowel sounds. Skin: No rashes. Extr: Warm & well-perfused. Impression/Report/Plan: #1 Amoxicillin Allergy Ms. Oliveros has a history of amoxicillin allergy with reaction in 2003 consisting of rash with hives and no other symptoms. Penicillin skin testing was discussed with the patient to clarify risk for anaphylaxis with penicillin administration. We discussed the risks and benefits of testing. We discussed that when performed by skilled personnel, serious reactions to penicillin skin testing are extremely rare. We also discussed that while it is uncommon, it is possible for individuals to have an allergy to amoxicillin despite negative penicillin skin testing. Patient decided to move forward with penicillin skin testing. If negative, we will schedule an amoxicillin challenge. #2 Sulfa Allergy Ms. Oliveros has a history of sulfa allergy with reaction several years ago consisting of a rash on her legs. We discussed that there currently are no standardized tests to sulfa drugs and that the options, if she needed to use an sulfa containing antibiotic such as Bactrim, we could schedule an oral shawn llenge. We discussed she would be a good candidate for a challenge given that based on her history her risk for anaphylaxis is fairly low. We will proceed with an oral challenge to bactrim in the future. This case was seen and discussed with Dr. Schuyler Morris M.D. Allergy Fellow Scottie Payan M.D. - 06/08/2019 2:00 PM CDT I agree with the assessment of this patient by??Dr. Morris. ??I had the opportunity to discuss the patient's case??and agree with Dr. Morris's assessment, ??impression, and plan.??Please see Dr. Morris's note for full details of our discussion. ?? #1??Personal history of adverse drug reactions documented in this encounter Plan of Treatment Upcoming Encounters Date Type Specialty Care Team Description 11/01/2022 Office Visit Urology Regina Black, DIANN, C.N.P. [address] [place] [phone] (Wo rk) Scheduled Orders Name Type Priority Associated Diagnoses Order S chedule Penicillin Skin Test Procedures Routine Allergy Antibiotic E xpected: 06/08/2019 Personal History (Approximat e), Expires: 2021 Scheduled Referrals Name Type Priority Associated Order Schedule Diagnoses Medication challenge: Outpatient Referral Routine Allergy Anti biotic Expected: Amoxicillin Personal History 06/08/2019 (Approximate), Expires: 06/08/2020 Medication challenge: Outpatient Referral Routine Allergy Anti biotic Expected: Other (specify):; Personal History 2018 sulfa (bactrim) (Approximate ), Expires: 06/08/2020 documented as of this encounter Visit Diagnoses Diagnosis Allergy Antibiotic Personal History documented in this encounter Additional Health Concerns Assessment Noted Time PHQ-9 Depression Total Score: 2 04/17/2019 10:20 AM CD T documented as of this encounter Care Teams Artificial Cherry Maker Relationship Specialty Start Date End Date Cindy Alarcon M.D. PCP - General 04/28/17 08/14/20 documented as of this encounter
--- OUTSIDE RECORDS SUMMARY | 2022-09-22 13:33 | XMS_ITS | Encounter Summary ---
:1955 Author Organization [facility] Address [address] [place] [address] Care Team Providers Name Role Phone Cindy Alarcon M.D. Primary Care Provider Reason for Referral Specialty Diagnoses / Procedures Referred By Contact Refer red To Contact Xochitl Morris M.D. [facility] Referral ID Status Reason Start Date Expiration Date Visits Requ ested Visits Authorized Reason for Visit Appointment Request (Routine) - Closed Specialty Diagnoses / Procedures Referred By Contact Refer red To Contact Allergy and Immunology Xochitl Morris M.D. Referral ID Status Reason Start Date Expiration Date Visits Requ ested Visits Authorized [id number] Closed 06/08/2019 06/07/2020 1 1 Encounter Details Date Type Department Care Team Description 06/11/2019 Office Visit Division of Allergic Xochitl Morris Alle rgy Drug Personal Diseases in Isi.Irma History (Primar y Dx) [place], [place] [address] [place] [address] Social History Tobacco Use Types Packs/Day Years [...] How often do you attend faith or hindu services? Never 05/13/2019 Do you belong to [...] place to sleep or slept in a care home (including now)? Education Answer Date Recorded What is the highest level of school Bachelor's degree (e.g., BA, AB, 05/13/2019 you have completed or the highest BS) degree you have received? 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 - 06/11/2019 7:55 AM CDT Referral: Xochitl Morris M.D. [address] [place] [phone] CC: Sulfa allergy, oral challenge to bactrim HPI: Emelyn Oliveros is a 63 y.o.-year-old female with history of drug allergy, hypothyroidism, ABRAHAN, GERD currently presenting for oral challenge to bactrim. She is coming to visit us from [place], [place]. She was seen by our department 06/08 for evaluation of penicillin and sulfa allergies. Please see ournotes from this date for details. Briefly, her allergic reaction to sulfa happened several years agoin the 70s/80s. She could not recall the antibiotic but was being treated for a UTI and developed a rash on her legs a couple hours after receiving the dose. No other symptoms. Today we are proceeding with a one step challenge to bactrim. Allergies Allergen Reactions ??? Amoxicillin Hives and Rash ??? Ampicillin Hives ??? Antibiotic Cream Rash ??? Bupropion Hcl Tinnitus ??? Cat Dander Other (see comments) ??? Chlorhexidine Rash ??? Fluoxetine Hives FLUOXETINE HCL - Prozac ??? House Dust Mite Other (see comments) ??? Ibuprofen GI bleeding ??? Iron,Carbonyl-Vitamin C [...] mouth every morning before breakfast. 90tablet 3 Current Facility-Administered Medications on File Prior to Visit Medication Dose Route Frequency Provider Last Rate Last Dose ??? [DISCONTINUED] sulfamethoxazole-trimethoprim 200-40 mg/5 mL suspension 80 mg of trimethoprim (BACTRIM,SEPTRA) 80 mg of trimethoprim oral Once Scottie Payan M.D. Patient Active Problem List Diagnosis ??? Necrosis [...] (HCC) ??? Infection Urinary Tract Escherichia Coli ??? Allergy Drug Personal History Review of systems: Complete review of systems [...] Of Skin Basal Cell Carcinoma 01/12/2016 ??? Migraine Headache 1980 ??? Necrosis Avascular Humeral Head Right (HCC) 11/15/2017 ??? Nodule Thyroid 01/12/2016 ??? Osteopenia 11/17/2015 ??? Other Injury Of Unspecified Body Region 2012 Planning shoulder replacement later this year ??? Pain Hip Bilateral 01/29/2018 ??? Primary Central Sleep Apnea 09/20/2014 ??? Primary Osteoarthritis Shoulder Right 01/29/2018 ??? Rosacea 01/12/2016 ??? Rotator Cuff Disorder Left 11/15/2017 ??? Tinnitus Bilateral 12/30/2017 ??? Unspecified Amblyopia Bilateral 1961 Past Surgical History: Procedure Laterality Date ??? BREAST BIOPSY Left Negative ??? BREAST FIBROADENOMA SURGERY Left ??? COLONOSCOPY 08/22/2014 Complicated with perforation. Repeat in 10 years. [place], [place] ??? DILATATION AND CURETTAGE ??? ESOPHAGOGASTRODUODENOSCOPY 08/22/2014 ??? OTHER SURGICAL HISTORY strabismus 1986 1986 ??? STRABISMUS SURGERY Bilateral 1986 ??? THERAPEUTIC 1981 ??? THYROIDECTOMY, PARTIAL Right 06/06/2015 Right thyroid lobectomy and isthmusectomy. ??? TONSILLECTOMY Family History: Family History Problem Relation Age of Onset ??? Heart attack Father ??? Coronary artery disease Father ??? Stroke Father ??? Alcohol user Father ??? Smoker Father ??? Alcohol abuse Father ??? Bladder cancer Brother ??? Smoker Brother ??? Emphysema Mother ??? Hypertension Mother ??? Smoker Mother ??? Anxiety disorder Mother ??? Gluten sensitivity Sister ??? Diabetes Maternal Grandmother ??? Heart disease Brother ??? Alcohol abuse Brother ??? Other cancer Brother Bladder ??? Alcohol abuse Brother ??? Alcohol abuse Brother Social History: [...] and Sexual Activity ??? Alcohol use: Yes Types: 1 Standard drinks or equivalent per week Frequency: Monthly or less Drinks per session: 1 or 2 Binge frequency: Never Comment: Social ??? Drug use: No ??? Sexual activity: Yes Partners: Male control/protection: Post-menopausal Comment: No history of STDs. + history of abnormal pap smear in 1997 requiring colposcopy. All normal pap smears since them. + new partner in the last year, Lifestyle ??? Physical activity: Days per week: 3 days Minutes per session: 40 min ??? Stress: Only a little Relationships ??? Social connections: Talks on phone: More than three times a week Gets together: More than three times a week Attends hindu service: Never Active member of club or organization: No Attends meetings of clubs or organizations: Never Relationship status: Living with partner ??? Intimate partner violence: Fear of current [...] equal and round; no ocular discharge ENT: No rhinorrhea; Mucous membranes moist; No oropharyngeal lesions. No lip or tongue swelling Cardiac: Regular rate & rhythm; no murmurs, rubs, or gallops. Pulm: Clear to auscultation bilaterally, no wheezes, good aeration to the bases. Abd: Soft, nontender, nondistended, normal bowel sounds. Skin: No rashes. Extr: Warm & well-perfused. Impression/Report/Plan: #1 History of Reaction to Sulfa Ms. Oliveros has a history of reaction to sulfa several years ago consisting of rash. Today she was inagreement to proceeding with an oral challenge to Bactrim. Given her low risk (isolated rash that was not urticarial, reaction happened several years ago) we will proceeded with a one step challenge. One tablet of single strength bactrim (80mg Trimethoprim) was administered and she was subsequently observed for one hour. She developed subjective pruritus behind her ears that resolved on its own without associated rash or hives. No lip, tongue swelling or wheezing on exam. She attributes this pruritus to nervousness. Ms. Oliveros has passed the challenge without adverse reaction. We did discuss that although she has passed an oral challenge, her risk for developing an allergic reaction to Bactrim is the same as the general population and could develop a reaction in the future. Amoxicillin and penicillin have been removed from her allergy list. This case was discussed with Dr. Schuyler Morris M.D. Allergy Fellow documented in this encounter Plan of Treatment Upcoming Encounters Date Type Specialty Care Team Description 11/01/2022 Office Visit Urology Regina Black, ACCOUNT DEVELOPMENT EXECUTIVE, C.N.P. [address] [phone] (Wo rk) Scheduled Referrals Name Type Priority Associated Order Schedule Diagnoses Medication challenge: Outpatient Referral Routine Allergy Drug Expected: Amoxicillin Personal History 06/12/2019 (Approximate), Expires: 06/12/2020 documented as of this encounter Visit Diagnoses Diagnosis Allergy Drug Personal History - Primary documented in this encounter Administered Medications Inactive Administered Medications - up to 3 most recent administrations Medication Order MAR Action Action Date Dose Rate Site sulfamethoxazole-trimethoprim Given 06/11/2019 8:35 AM CDT 1 tab let 400-80 mg per tablet 1 tablet (BACTRIM,SEPTRA) 1 tablet, oral, Once, On 06/11/19 at 0900, For 1 dose, Drug Monitoring Program: Pharmacist to adjust medication dosing based on indication and drug clearance factors., Indications: Lower UTI, Non-Catheter, oral challenge documented in this encounter Additional Health Concerns Assessment Noted Time PHQ-9 Depression Total Score: 2 04/17/2019 10:20 AM CD T documented as of this encounter Care Teams Hydrography Teacher Relationship Specialty Start Date End Date Cindy Alarcon M.D. PCP - General 04/28/17 08/14/20 documented as of this encounter
--- OUTSIDE RECORDS SUMMARY | 2022-09-22 13:33 | XMS_ITS | Encounter Summary ---
:1955 Author Organization [facility] Address [address] [place] [address] Care Team Providers Name Role Phone Cindy Alarcon M.D. Primary Care Provider Reason for Visit Reason Comments Allergy Testing Sulfa desensitization Encounter Details Date Type Department Care Team Description 06/11/2019 Clinical Support Division of Allergic Alexandra, Xochitl Snowden M.D. Allergy Antibiotic Personal History (Primary Dx); Diseases in Mis [place] [facility] R[facility] [address] [place] [address] Allergy Drug Personal History [place], [place] [address] [place] [address] Social History Tobacco Use Types Packs/Day Years [...] er 09/12/2022 How often do you attend latter day or restoration services? Never 05/13/2019 Do you belong to any clubs or organizations such as latter day N o 09/12/2022 groups, unions, fraternal or [...] place to sleep or slept in a senior care (including now)? Education Answer Date Recorded What is the highest level of school Bachelor's degree (e.g., BA, AB, 05/13/2019 you have completed or the highest BS) degree you have received? 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 [address] [place] [phone] (Wo rk) documented as of this encounter Visit Diagnoses Diagnosis Allergy Antibiotic Personal History - Pr imary Allergy Drug Personal History documented in this encounter Additional Health Concerns Assessment Noted Time PHQ-9 Depression Total Score: 2 04/17/2019 10:20 AM CD T documented as of this encounter Care Teams Anchor Tack Puller Relationship Specialty Start Date End Date Phyo, Phunt, M.D. PCP - General 04/28/17 08/14/20 documented as of this encounter
--- OUTSIDE RECORDS SUMMARY | 2022-09-22 13:33 | XMS_ITS | Encounter Summary ---
:1955 Author Organization [facility] Address [address] [place] [id number] Care Team Providers Name Role Phone Cindy Alarcon M.D. Primary Care Provider Encounter Details Date Type Department Care Team Description 11/01/2019 Orders Only Pharmacy Prior Auth Tiffany Hong [phone] Social History Tobacco Use Types Packs/Day Years [...] How often do you attend congregational or restorationist services? Never 05/13/2019 Do you belong to [...] place to sleep or slept in a longterm (including now)? Education Answer Date Recorded What is the highest level of school Bachelor's degree (e.g., BA, AB, 05/13/2019 you have completed or the highest BS) degree you have received? Sex Assigned at Date Recorded Female 11/29/2017 6:[address] MAN documented as of this encounter Plan of Treatment Upcoming Encounters Date Type Specialty Care Team Description 11/01/2022 Office Visit Urology Regina Black, DIANN, C.N.P. [address] [phone] (Wo rk) documented as of this encounter Visit Diagnoses Not on filedocumented in this encounter Additional Health Concerns Assessment Noted Time PHQ-9 Depression Total Score: 2 04/17/2019 10:20 AM CD T documented as of this encounter Care Teams Ibm Websphere Commerce Developer Relationship Specialty Start Date End Date Cindy Alarcon M.D. PCP - General 04/28/17 08/14/20 documented as of this encounter
--- OUTSIDE RECORDS SUMMARY | 2022-09-22 13:33 | XMS_ITS | Encounter Summary ---
:1955 Author Organization [facility] Address [address] [place] [address] Care Team Providers Name Role Phone Cindy Alarcon M.D. Primary Care Provider Reason for Visit Reason Comments Other frequent uti's Outpatient (Routine) - Closed Specialty Diagnoses / Procedures Referred By Contact Refer red To Contact Urology Diagnoses Infection Urinary Tract Recurrent Cindy Alarcon M.D. [facility] [address] [place] [address] Referral ID Status Reason Start Date Expiration Date Visits Requ ested Visits Authorized [id number] Closed 05/01/2019 04/30/2020 1 1 Encounter Details Date Type Department Care Team Description 05/14/2019 Comprehensive Visit Department of Regina Black Inf ection Urinary Urology in A, ESCALATOR OPERATOR, C.N.P. Tract Recurrent [place], [address] (Primary Dx) [place], [place] [address] [address] [facility] [place] [phone] [address] (Work) [phone] Social History Tobacco Use Types Packs/Day Years [...] How often do you attend faith or restorationism services? Never 05/13/2019 Do you belong to [...] place to sleep or slept in a intermediate (including now)? Education Answer Date Recorded What is the highest level of school Bachelor's degree (e.g., BA, AB, 05/13/2019 you have completed or the highest BS) degree you have received? 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 - 05/14/2019 8:30 AM CDT SUBJECTIVE REQUESTING PROVIDER Cindy Alarcon M.D. REASON FOR CONSULT Urinary symptoms HISTORY OF PRESENT ILLNESS Emelyn is a pleasant 63 year old female here today for a consultation for Recurrent UTI. She states that she had numerous urinary tract infections many years ago, she is now starting to have more issueswith Urinary Tract Infections. She is in a new relationship, she worries that this has triggered more symptoms of infection. Please see Review of Systems below for further details. UTI History 03/16/2019 E. Coli and Aerococcus Urinae, treated with Levaquin for 7 days 04/28/2019 Staphylococcus Lugdunesis and Enterococcus faecalis, treated with Ciprofloxacin for 7 days Lower Urinary Symptoms Lower Urinary Sx: hematuria (-) able to sense full bladder (+) frequency (+) 8 x per day difficulty urinating (+) Presence of pelvic pain: suprapubic pain (+) Obstructive Sx: kidney infections or required hospitalization for kidney failure (-) # of UTI's in past year: 1 or 2 Required catheter: no Incontinence: unintentionally leaks urine (-) Treatments: Treatments taken for urinary symptoms: medications treatments helped (+) had surgical or office procedures to improve urinary symptoms (+) The following portions of the patient's history were reviewed and updated as appropriate: allergies,current medications, family history, medical history, social history, surgical history and problem list. REVIEW OF SYSTEMS Constitutional: Negative for fever. Gastrointestinal: Negative for constipation and diarrhea. Has a bowel regimen: salad, prune juice, and exercise. Genitourinary: Positive for difficulty urinating. Negative for incontinence, pain with urination, hematuria, urgency and frequent urination. Noticed that her urine had a strange odor in the winter. UTI in March, treated with Levofloxacin. April 2019 UTI treated with cipro. In had multiple UTI's and had urethra stretched by Urologist. Stopped taking baths, stopped sexual activity, increased fluids - decreased coffee, took cranberry supplements. Now sexually active again in the last year. Urinates after intercourse. Drinks 8 ounces of water every 2 hours during the day, 3 cups of coffee. Feels like bladder empties well, double voids in the morning. No leakage of urine. Currently feels occasional burning, like needles when voiding. OBJECTIVE Vitals: 05/14/19 0823 BP: 116/64 Patient Position: Sitting Pulse: 81 Temp: 36.9 ??C TempSrc: Temporal PHYSICAL EXAM Vitals and nursing note reviewed. General: Well developed, well nourished, well groomed female in no acute distress. Neurological: Alert, cooperative, oriented x3. Appropriate mood and affect. Head: Normal appearance, no abnormalities, normocephalic. Neck: Symmetrical and supple, trachea is midline. Cardiac: regular rate, regular rhythm. Respiratory:Respirations are unlabored with normal respiratory rate and normal respiratory movements. Normal chest wall expansion without use of accessory muscles. Abdomen: Soft, non-tender, non-distended Vascular: There are +2 pulses noted in both upper and lower extremities. : Skin color and turgor appropriate for region. No ulcers, erythema, rashes, or pigmented lesions noted. External genitalia negative for masses, lesions, or swelling. No labial agglutination noted, minimal atrophy noted. No unusual odors or discharge noted. Vaginal mucosa pink and moist with rugae present. No cystocele or rectocele exhibited on straining. Catheterized specimen collected. Extremities: Warm, without edema or ulcerations. Musculoskeletal: [place] is symmetrical and balanced. DIAGNOSTIC Postvoid residual by bladder scan 256 mL, patient felt that her bladder was not completely empty as she was giving a urine specimen. ASSESSMENT / PLAN #1 Infection Urinary Tract Recurrent Catheterized urine specimen is collected for urinalysis and urine culture. We will contact her with results of this testing. We had an in-depth discussion about recurrent urinary tract infections. Discussed prevention as wellas hygiene tips to assist with prevention of urinary tract infections. We discussed that she should continue to drink adequate amounts of fluid. We discussed the possibility of vaginal estrogen cream, she does not have excessive vaginal dryness at this time and does not feel this is necessary. We discussed the possibility of low-dose antibiotics to be taken after sexual activity. We also discussed the use of cranberry and vitamin-C. She will take all this into consideration and contact us if she has further symptoms of Urinary Tract Infection. All of her questions are answered today and she is in agreement with this plan. Signed by: Regina Black APRN, C.N.P. 05/14/2019 8:31 AM documented in this encounter Plan of Treatment Upcoming Encounters Date Type Specialty Care Team Description 11/01/2022 Office Visit Urology Regina Black APRN, C.N.P. [address] [facility] [place] [phone] (Wo rk) documented as of this encounter Procedures Procedure Name Priority Date/Time Associated Comments Diagnosis BACTERIAL CULTURE, Routine 05/14/2019 10:11 Infection Urinary Results for this AEROBIC + SUSC, URINE AM CDT Tract Recurrent pro cedure are in the results section. URINALYSIS WITH Routine 05/14/2019 10:11 Infection Urinary Res ults for this MICROSCOPIC AM CDT Tract Recurrent procedure ar e in the results section. documented in this encounter Results Urinalysis with Microscopic: Urine, Straight Catheter (05/14/2019 10:11 AM CDT) P athologist Signature Source Catheter 05/14/2019 10:30 AM CDT Clarity Clear Clear 05/14/2019 10:30 AM CDT Color Yellow 05/14/2019 10:30 AM CDT Comment: ----REFERENCE VALUE---- Colorless Yellow Lauren Blood Negative Negative 05/14/2019 10:30 AM CDT Nitrite Negative Negative 05/14/2019 10:30 AM CDT Leukocyte Esterase Negative Negative 05/14/2019 10:30 AM C DT Protein Negative mg/dL 05/14/2019 10:30 AM CDT Comment: ----REFERENCE VALUE---- Negative Trace Glucose Negative Negative mg/dL 05/14/2019 10:30 AM CDT Ketones, QI(U) Negative Negative mg/dL 05/14/2019 10:30 AM CDT Bilirubin Negative Negative 05/14/2019 10:30 AM CDT pH 6.5 5.0 - 8.0 05/14/2019 10:30 AM CDT Specific [place] 1.010 1.001 - 1.035 05/14/2019 10:30 AM CDT Urobilinogen 0.2 0.2 - 1.0 mg/dL 05/14/2019 10:30 AM C DT White Blood Cells None Seen /hpf 05/14/2019 10:30 AM CD T Comment: ----REFERENCE VALUE---- Males: 0-3 Females: 0-10 Unknown: 0-10 Red Blood Cells None Seen 0 - 2 /hpf 05/14/2019 10:30 AM CDT Specimen Anatomical Collection Method Collection Time Receive d Time (Source) Location / / Volume Laterality Urine (Urine, 05/14/2019 10:11 05/14/2019 Straight AM CDT 10:19 AM CDT Catheter) Regina Black APRN, C.N.P. LAB URINE ORDERABLES Performing Organization Address City/[facility]/ZIP Code Phon e Number FORMERLY NAMED [facility] [address] [place] [address] LAB Bacterial Culture, Aerobic + Susc, Urine (05/14/2019 10:11 AM CDT) [facility] Method Time Signature Urine Culture No growth 05/15/2019 after 1 day 8:40 AM CDT of incubation. Specimen Anatomical Collection Method Collection Time Receive d Time (Source) Location / / Volume Laterality Urine (Urine, 05/14/2019 10:11 05/14/2019 2:03 Straight AM CDT PM CDT Catheter) Comment: Specimen Source Site: Urine Rosas Huitron APRNNJuanchoP. LAB MICROBIOLOGY - GENE RAL ORDERABLES Performing Organization Address City/[facility]/ZIP Code Phon e Number [id number] [address] [place] [address] LAB documented in this encounter Visit Diagnoses Diagnosis Infection Urinary Tract Recurrent - Prim percy documented in this encounter Additional Health Concerns Assessment Noted Time PHQ-9 Depression Total Score: 2 04/17/2019 10:20 AM CD T documented as of this encounter Care Teams Party Plan Salesperson Relationship Specialty Start Date End Date Cindy Alarcon M.D. PCP - General 04/28/17 08/14/20 documented as of this encounter
--- OUTSIDE RECORDS SUMMARY | 2022-09-22 13:33 | XMS_ITS | Encounter Summary ---
:[address] [facility] Address [address] [place] [address] Care Team Providers Name Role Phone Niecy Herrera M.D., M.P.H. Primary Care Provider [phone] Encounter Details Date Type Department Care Team Description 06/30/2021 Orders Only [facility] PCP Niecy Summers maryann Mammogram Breast Cancer; HERMES Jacobs M.D., M.P.H. Screening Examination Diabetes Mellitus; [address] [facility] Hyperlipidemia; [place], [place] Hypothyroidism [id number] Social History Tobacco Use Types Packs/Day Years [...] er 09/12/2022 How often do you attend hinduism or restoration services? Never 05/13/2019 Do you belong to any clubs or organizations such as hinduism N o 09/12/2022 groups, unions, fraternal or [...] place to sleep or slept in a chcf (including now)? Education Answer Date Recorded What is the highest level of school Bachelor's degree (e.g., BA, AB, 05/13/2019 you have completed or the highest BS) degree you have received? 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 [address], [place] [phone] (Wo rk) documented as of this encounter Visit Diagnoses Diagnosis Screening Mammogram Breast Cancer Screening Examination Diabetes Mellitus Hyperlipidemia Hypothyroidism documented in this encounter Additional Health Concerns Assessment Noted Time PHQ-9 Depression Total Score: 2 04/17/2019 10:20 AM CD T documented as of this encounter Care Teams Data Processing Auditor Relationship Specialty Start Date End Date Niecy Herrera M.D., M.P.H. PCP - General 08/15/[address] [place] [address] documented as of this encounter
--- OUTSIDE RECORDS SUMMARY | 2022-09-22 13:33 | XMS_ITS | Encounter Summary ---
:1955 Author Organization [facility] Address [address] [place] [address] Care Team Providers Name Role Phone Cindy Alarcon M.D. Primary Care Provider Encounter Details Date Type Department Care Team Description 04/20/2019 Clinical Communication Department of [facility] Cindy Alarcon M.D. [address], [address] [address] [place] [address] Social History Tobacco Use Types Packs/Day Years [...] er 09/12/2022 How often do you attend oriental orthodox or latter day services? Never 05/13/2019 Do you belong to any clubs or organizations such as oriental orthodox N o 09/12/2022 groups, unions, fraternal [...] or slept in a longterm (including now)? 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 [address] [phone] (Wo rk) documented as of this encounter Visit Diagnoses Not on filedocumented in this encounter Additional Health Concerns Assessment Noted Time PHQ-9 Depression Total Score: 2 04/17/2019 10:20 AM CD T documented as of this encounter Care Teams Administrative Assistant Data Entry Relationship Specialty Start Date End Date Cindy Alarcon M.D. PCP - General 04/28/17 08/14/20 documented as of this encounter
--- OUTSIDE RECORDS SUMMARY | 2022-09-22 13:33 | XMS_ITS | Encounter Summary ---
:1955 Author Organization [facility] Address [address] [place] [address] Care Team Providers Name Role Phone Cindy Alarcon M.D. Primary Care Provider Reason for Visit Reason Comments Pre-op Exam urethral dialation on 01/29 [facility] Appointment Request (Routine) - Closed Specialty Diagnoses / Procedures Referred By Contact Refer red To Contact [facility] Referral ID Status Reason Start Date Expiration Date Visits Requ ested Visits Authorized [id number] Closed 01/23/2020 01/22/2021 1 1 Encounter Details Date Type Department Care Team Description 01/24/2020 Office Visit Department of Cindy Alarcon M.D . Infection Urinary Tract Recurrent (Prima ry Dx); Community Internal [address], Pos tmenopausal Atrophic Vaginitis; Medicine in [place] [address] Incomplete Bladder Emptying; [place], [place], [place] Obstruction Bladder Neck; [address] [address] [place] [address] Social History Tobacco Use Types Packs/Day [...] er 09/12/2022 How often do you attend zoroastrian or jewish services? 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 - 01/24/2020 7:45 AM CDT SUBJECTIVE CHIEF COMPLAINT/ REASON FOR VISIT 1. To discuss upcoming procedure for recurrent UTI, incomplete bladder emptying and bladder outlet obstruction 2. Anxiety regarding COVID-19 HISTORY OF PRESENT ILLNESS Emelyn Oliveros is a 64 y.o. female who presents to the clinic today for above complaints. She saw Urology at [facility] in [place] for recurrent urinary tract infection following after sexualactivity. She was noted to have bladder outlet obstruction per cystoscopy. She also complaining of incomplete bladder emptying. She was advised to schedule urethral dilatation which she had it before and she did not like discomfort coming from that procedure. She was also diagnosed with atrophic vaginitis. She was given an option of taking antibiotic prior to sexual activity and using for estrogen cream vaginally. Urethral dilatation is scheduled on 01/30/2020 at [facility]. She is also concerned about spreading of respiratory illnesses including COVID-19 in [place]. She would like to avoid Hospital and Clinic and even workplace if it is possible. She does not want to have procedure done at the time of COVID-19 outbreak. She goes to [employer] 2 days a week for her work. Usually she works from home. 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 She has anxiety and follow with psychiatrist. Because of increased anxiety, she was started on doxepin in addition to BuSpar. She still taking Klonopin. Her psychiatrist is leaving for [place]. She needs new psychiatrist. [facility] psychiatrist does not see new patient. We discussed psychiatrist consultation at [facility]. She wants to see someone nearby. Advised her to make an appointment to see Dr. Manny Fernandez from [place], [place]. I reviewed and updated medical record. Medication reconciliation was done. I answered all of their questions. Patient does not have additional questions, concerns, or complaints. MEDICATIONS Current Outpatient Medications Medication Sig Dispense Refill ??? ascorbic acid, vitamin C, (VITAMIN C) 500 mg capsule, extended release CR capsule Take 500 mg bymouth. ??? busPIRone (for_BUSPAR) 10 mg tablet Take 10 mg by mouth 3 (three) times a day. ??? cholecalciferol (VITAMIN D3) 2,000 Unit capsule Take 1 capsule by mouth daily. ??? clonazePAM (for_KlonoPIN) 1 mg tablet Take 1 tablet (1 mg total) by mouth daily as needed for anxiety. 30 tablet 0 ??? cranberry extract (CRAN-MAX) 500 mg capsule capsule Take 500 mg by mouth. ??? doxepin (SINEquan) 10 mg capsule TAKE 1-3 CAPSULES BY MOUTH AT BEDTIME ??? hypochlorous acid-sodium chlor (ACUICYN) 0.01 % topical spray Apply 40 mL topically. ??? HYPROMELLOSE (SYSTANE GEL OPHT) Administer 1 [...] Take 1 tablet by mouth daily. ??? SYNTHROID 75 mcg tablet Take 1 tablet (75 mcg total) by mouth every morning before breakfast. 90tablet 3 ??? B complex-vitamins (BALANCE B-50) tablet Take 1 tablet by mouth daily. ??? DOCOSAHEXANOIC ACID/EPA (FISH OIL ORAL) Take 1 capsule by mouth daily. ??? raNITIdine (ZANTAC MAXIMUM STRENGTH) 150 mg tablet Take by mouth. As needed No current facility-administered medications for this visit. ALLERGIES/CONTRAINDICATIONS Allergies Allergen Reactions ??? Antibiotic Cream Rash ??? Bupropion Hcl Tinnitus ??? Cat Dander Other (see comments) ??? Chlorhexidine Rash ??? Fluoxetine Hives FLUOXETINE HCL - Prozac ??? House Dust Mite Other (see comments) ??? Ibuprofen GI bleeding ??? Iron,Carbonyl-Vitamin C Other (see comments) ??? Ragwokdl-Llaioowxf-Ibittganm Rash ??? Nsaids (Non-Steroidal Anti-Inflammatory Drug) GI bleeding ??? Sertraline GI intolerance bruxism and constipation at high doses ??? Tape [Adhesive Tape-Silicones] Rash SYSTEMS REVIEW Please see history of present illness for pertinent positives, otherwise rest of review of systems negative. MEDICAL HISTORY Past Medical History: Diagnosis Date ??? Abnormal [...] ??? Other Injury Of Unspecified Body Region 2013 Planning shoulder replacement later this year ??? Pain Hip Bilateral 01/29/2018 ??? Primary Central Sleep Apnea 09/20/2014 ??? Primary Osteoarthritis Shoulder Right 01/29/2018 ??? Rosacea 01/12/2016 ??? Rotator Cuff Disorder Left 11/15/2017 ??? Tinnitus Bilateral 12/30/2017 ??? Unspecified Amblyopia Bilateral 1961 SURGICAL HISTORY Past Surgical History: Procedure Laterality Date ??? BREAST BIOPSY Left Negative ??? BREAST FIBROADENOMA SURGERY Left ??? COLONOSCOPY 08/22/2014 Complicated with perforation. Repeat in 10 years. [place], [place] ??? DILATATION AND CURETTAGE ??? ESOPHAGOGASTRODUODENOSCOPY 08/22/2014 ??? OTHER SURGICAL HISTORY strabismus 1986 1985 ??? STRABISMUS SURGERY Bilateral 1985 ??? THERAPEUTIC 1981 ??? THYROIDECTOMY, PARTIAL Right 06/06/2015 Right thyroid lobectomy and isthmusectomy. ??? TONSILLECTOMY SOCIAL HISTORY Social History Socioeconomic History ??? Marital status: Spouse name: None ??? Number of children: None ??? Years of education: None ??? Highest education level: Bachelor's degree (e.g., BA, AB, BS) Occupational History Employer: [employer] Social Needs ??? Financial resource strain: Not hard at all ??? Food insecurity Worry: Never true Inability: Never true ??? Transportation needs Medical: No Non-medical: No Tobacco Use ??? [...] in the last year, Lifestyle ??? Physical activity Days per week: 3 days Minutes per session: 40 min ??? Stress: Only a little Relationships ??? Social connections Talks on phone: More than three times a week Gets together: More than three times a week Attends jewish service: Never Active member of club or organization: No Attends meetings of clubs or organizations: Never Relationship status: Living with partner ??? Intimate partner violence Fear of current or ex partner: None Emotionally abused: None Physically abused: None Forced sexual activity: None Other Topics Concern ??? None Social History Narrative ??? None Social History Substance and Sexual Activity Drug Use No Social History Substance and Sexual Activity Alcohol Use Yes ??? Types: 1 Standard drinks or equivalent per week ??? Frequency: Monthly or less ??? Drinks per session: 1 or 2 ??? Binge frequency: Never Comment: Social FAMILY HISTORY Family History Problem Relation Age of Onset [...] Alcohol abuse Brother ??? Alcohol abuse Brother OBJECTIVE VITAL SIGNS Vitals: 01/24/20 0736 BP: 128/70 Patient Position: Sitting Pulse: 80 Temp: 36.4 ??C Height: 173 cm Weight: 88 kg SpO2: 95% PHYSICAL EXAMINATION General: Patient is sitting. No distress. Able to talk without interruption. Head: No facial rash or asymmetry. Eyes: PERRLA. EOMI. No pallor, icterus or conjunctivitis. ENT: No nasal congestion, discharge or bleeding. Gait: No abnormal gait. Mental: Alert and oriented x 3. Normal mood and affect. ASSESSMENT / PLAN #1 Infection Urinary Tract Recurrent Post Coital #2 Postmenopausal Atrophic Vaginitis #3 Incomplete Bladder Emptying #4 Obstruction Bladder Neck She decided to cancel urethral dilatation procedure scheduled on 01/30/2020. She will drink enough water and pay attention to personal hygiene. She will continue using estrogen vaginal cream. She will discuss with her urologist about prophylactic antibiotic before sexual activities. #5 Anxiety Generalized Disorder She will follow with psychiatrist. She will contact Dr. Manny Fernandez's office to schedule an appointment. #6 Follow-up Visit Return to the clinic in March 2020 for annual physical exam and review medical problems. documented in this encounter Plan of Treatment Upcoming Encounters Date Type Specialty Care Team Description 11/01/2022 Office Visit Urology Regina Black APRN, C.N.P. [address] [phone] ([facility]) documented as of this encounter Visit Diagnoses Diagnosis Infection Urinary Tract Recurrent - Prim percy Postmenopausal Atrophic Vaginitis Incomplete Bladder Emptying Obstruction Bladder Neck Anxiety Generalized Disorder documented in this encounter Additional Health Concerns Assessment Noted Time PHQ-9 Depression Total Score: 2 04/17/2019 10:20 AM CD T documented as of this encounter Care Teams Resource Recovery Specialist Relationship Specialty Start Date End Date Cindy Alarcon M.D. PCP - General 04/28/17 08/14/20 documented as of this encounter
--- OUTSIDE RECORDS SUMMARY | 2022-09-22 13:33 | XMS_ITS | Encounter Summary ---
:1955 Author Organization [facility] Address [address] [place] [address] Care Team Providers Name Role Phone Niecy Herrera M.D., M.P.H. Primary Care Provider [phone] Encounter Details Date Type Department Care Team Description 03/03/2021 Orders Only [facility] PCP [facility] Sa nanci Alexis M.D. [address] [place], [place] [phone] (Wo rk) Social History [...] er 09/12/2022 How often do you attend mandaeism or jewish services? 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 [address] [place], [place] [phone] (Wo rk) documented as of this encounter Visit Diagnoses Not on filedocumented in this encounter Additional Health Concerns Assessment Noted Time PHQ-9 Depression Total Score: 2 04/17/2019 10:20 AM CD T documented as of this encounter Care Teams Steam Cleaning Machine Operator Relationship Specialty Start Date End Date Niecy Herrera M.D., M.P.H. PCP - General 08/15/20 [address] [place] [address] documented as of this encounter
--- OUTSIDE RECORDS SUMMARY | 2022-09-22 13:33 | XMS_ITS | Encounter Summary ---
:1955 Author Organization [facility] Address [address] [place] [address] Care Team Providers Name Role Phone Cindy Alarcon M.D. Primary Care Provider Encounter Details Date Type Department Care Team Description 09/17/2019 Orders Only Department of Urology Regina Black, Dysuria (Primary Dx) in [facility] UNDERGROUND HEAVY EQUIPMENT OPERATOR, C.N.P. [address] [place] [phone] (Wo rk) Social History Tobacco Use Types [...] How often do you attend yarsani or roman catholic services? 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 [address] [phone] (Wo rk) documented as of this encounter Results (ABNORMAL) Urinalysis with Microscopic: Urine, Midstream (09/18/2019 10:08 AM ATHLETIC COORDINATOR) P athologist Signature Source Midstream 09/18/2019 FB60 10:24 AM ATHLETIC COORDINATOR Clarity Cloudy (A) Clear 09/18/2019 FB60 10:24 AM ATHLETIC COORDINATOR Color Yellow 09/18/2019 FB60 10:24 AM ATHLETIC COORDINATOR Comment: ----REFERENCE VALUE---- Colorless Yellow Lauren Blood Small (A) Negative 09/18/2019 10:24 AM ATHLETIC COORDINATOR FB60 Nitrite Negative Negative 09/18/2019 10:24 AM ATHLETIC COORDINATOR FB60 Leukocyte Esterase Large (A) Negative 09/18/2019 10:[address] FB60 Protein Negative mg/dL 09/18/2019 10:24 AM ATHLETIC COORDINATOR FB60 Comment: ----REFERENCE VALUE---- Negative Trace Glucose Negative Negative mg/dL 09/18/2019 10:24 AM ATHLETIC COORDINATOR F B60 Ketones, QI(U) Negative Negative mg/dL 09/18/2019 10:24 AM ATHLETIC COORDINATOR FB60 Bilirubin Negative Negative 09/18/2019 10:24 AM ATHLETIC COORDINATOR FB60 pH 6.5 5.0 - 8.0 09/18/2019 10:24 AM ATHLETIC COORDINATOR FB60 Specific [place] 1.010 1.001 - 1.035 09/18/2019 10:24 AM ATHLETIC COORDINATOR FB60 Urobilinogen 0.2 0.2 - 1.0 mg/dL 09/18/2019 10:[address] FB60 White Blood Cells 41-50 (A) /hpf 09/18/2019 10:26 AM CS T FB60 Comment: ----REFERENCE VALUE---- Males: 0-3 Females: 0-10 Unknown: 0-10 Red Blood Cells None Seen 0 - 2 /hpf 09/18/2019 10:26 AM ATHLETIC COORDINATOR FB60 Bacteria Present (A) None Seen 09/18/2019 10:26 AM ATHLETIC COORDINATOR FB60 Specimen Anatomical Collection Method Collection Time Receive d Time (Source) Location / / Volume Laterality Urine (Urine, 09/18/2019 10:08 09/18/2019 Midstream) AM ATHLETIC COORDINATOR 10:16 AM ATHLETIC COORDINATOR Regina Black APRN C.N.PJuancho LAB URINE ORDERABLES Performing Organization Address City/State/ZIP Code Phon e Number [address] [place], [place] [id number] [place] [address] LAB FB60 [place] [address] (ABNORMAL) Bacterial Culture, Aerobic + Susc, Urine (09/18/2019 10:08 AM ATHLETIC COORDINATOR) Component Value Ref Test Analysis Performed At Patholo gist Range Method Time Signature Urine Culture STAPHYLOCOCCUS LUGDUNENSIS 9 MKTO >100,000 cfu/mL 7:41 AM ATHLETIC COORDINATOR (A) Specimen Anatomical Collection Method Collection Time Receive d Time (Source) Location / / Volume Laterality Urine (Urine, 09/18/2019 10:08 09/18/2019 2:27 Midstream) AM ATHLETIC COORDINATOR PM ATHLETIC COORDINATOR Comment: Specimen Source Site: Urine Organism Antibiotic [...] : lugdunensis (MCG/ML) Susceptible Staphylococcus Tetracycline SUSCEPTIBILITY, DINORAH <=1 mcg/mL: lugdunensis (MCG/ML) Susceptible Staphylococcus Nitrofurantoin SUSCEPTIBILITY, DINORAH <=16 mcg/mL: lugdunensis (MCG/ML) Susceptible Staphylococcus Rifampin SUSCEPTIBILITY, DINORAH <=0.5 mcg/mL : lugdunensis (MCG/ML) Susceptible Comment: Rifampin should not be used as monotherapy Staphylococcus Trimethoprim + SUSCEPTIBILITY, DINORAH <=10 mcg/mL: lugdunensis Sulfamethoxazole (MCG/ML) Susceptible Regina Black APRN C.N.PJuancho LAB MICROBIOLOGY - GENE [facility] ORDERABLES Performing Organization Address City/State/[facility] Code Phon e Number [facility]- [address] [place] [address] [place] [address] System [address] documented in this encounter Visit Diagnoses Diagnosis Dysuria - Primary documented in this encounter Additional Health Concerns Assessment Noted Time PHQ-9 Depression Total Score: 2 04/17/2019 10:20 AM CD T documented as of this encounter Care Teams Mental Health Worker Relationship Specialty Start Date End Date Cindy Alarcon M.D. PCP - General 04/28/17 08/14/20 documented as of this encounter
--- OUTSIDE RECORDS SUMMARY | 2022-09-22 13:33 | XMS_ITS | Encounter Summary ---
:1955 Author Organization [facility] Address [address] [place] [address] Care Team Providers Name Role Phone Niecy Herrear M.D., M.P.H. Primary Care Provider [phone] Reason for Visit Reason Comments Jean PAP Recall Encounter Details Date Type Department Care Team Description 05/14/2021 Clinical Communication [facility] Sajan Ac PAP Recall Medicine in [facility] Luci MAIER M.D. [place] [address] [place] [address] [address] [place] [phone] Social History Tobacco Use Types Packs/Day Years [...] er 09/12/2022 How often do you attend amish or moravian services? Never 05/13/2019 Do you belong to any clubs or organizations such as amish N o 09/12/2022 groups, unions, fraternal or [...] place to sleep or slept in a halfway (including now)? Education Answer Date Recorded What is the highest level of school Bachelor's degree (e.g., BA, AB, 05/13/2019 you have completed or the highest BS) degree you have received? 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 - 05/14/2021 2:00 PM CDT Online message sent to patient with Nino OMER recall questions. Telephone Encounter - Eliza Lepe - 05/14/2021 9:53 AM CDT Patient calling regarding Lupis recall. Patient question/concern regarding recall/device: Lupis/Respironics Recall, and what should she do Patient PAP device: Dream Station farely new Please call the patient at telephone number: [phone] Last [facility] appointment and provider: Dr. Ac 11-12-2020 documented in this encounter Plan of Treatment Upcoming Encounters Date Type Specialty Care Team Description 11/01/2022 Office Visit Urology Regina Black, DIANN, C.N.P. [address] [phone] (Wo rk) documented as of this encounter Visit Diagnoses Not on filedocumented in this encounter Additional Health Concerns Assessment Noted Time PHQ-9 Depression Total Score: 2 04/17/2019 10:20 AM CD T documented as of this encounter Care Teams Fish Processing Supervisor Relationship Specialty Start Date End Date Niecy Herrera M.D., M.P.H. PCP - General 08/15/20 [address] [place] [address] documented as of this encounter
--- OUTSIDE RECORDS SUMMARY | 2022-09-22 13:33 | XMS_ITS | Encounter Summary ---
:1955 Author Organization [facility] Address [address] [place] [address] Care Team Providers Name Role Phone Cindy Alarcon M.D. Primary Care Provider Reason for Visit Reason Comments Allergy Testing Amoxicillin Challenge Encounter Details Date Type Department Care Team Description 06/15/2019 Clinical Support Division of Allergic Alexandra, Xochitl Snowden M.D. Allergy Antibiotic Personal History; Diseases in [place], RJuanchoNJuancho [address] [place] [address] Allergy Drug Personal History [place], [place] [address] [place] [address] Social History Tobacco Use Types Packs/Day Years [...] er 09/12/2022 How often do you attend hindu or sikh services? Never 05/13/2019 Do you belong to any clubs or organizations such as hindu N o 09/12/2022 groups, unions, fraternal or [...] at Date Recorded Female 11/29/2017 6:36 PM TEAM LEAD documented as of this encounter Last Filed Vital Signs Vital Sign Reading Time Taken Comments Blood Pressure 117/72 06/15/2019 9:45 AM CDT Pulse 58 06/15/2019 9:45 AM CDT Temperature - - Respiratory Rate 18 06/15/2019 9:45 AM CDT Oxygen Saturation 100% 06/15/2019 9:45 AM CDT Inhaled Oxygen Concentration - - Weight - - Height - - Body Mass Index - - documented in this encounter Consult Notes Xochitl Morris M.D. - 06/15/2019 9:00 AM CDT Referral: Xochitl Morris M.D. [address] [place] [phone] CC: Drug allergy HPI: Emelyn Cranedarwin??is a 63 y.o.-year-old??female??with history of drug allergy, hypothyroidism, ABRAHAN, GERD??currently presenting for penicillin skin testing and amoxicillin challenge.??She is coming [place] us from [place], [place]. ?? She was seen by our department 06/08 for evaluation of penicillin and sulfa allergies. Please see ournotes from this date for details. Briefly,she had an allergic reaction to amoxicillin in [...] quite remember what she was treated with. ?? Today we are proceeding with penicillin skin testing followed by an amoxicillin challenge if negative. Allergies Allergen Reactions ??? Amoxicillin Hives and [...] high doses ??? Tape [Adhesive Tape-Silicones] Rash Current Outpatient [...] Frequency Provider Last Rate Last Dose ??? [COMPLETED] amoxicillin 250 mg/5 mL suspension 250 mg (AMOXIL) 250 mg oral Once Xochitl Morris M.D. 250 mg at 06/15/19 0845 Patient Active Problem List Diagnosis ??? Necrosis [...] Complicated with perforation. Repeat in 10 years. [place], [place] ??? DILATATION AND CURETTAGE ??? ESOPHAGOGASTRODUODENOSCOPY [...] More than three times a week Attends sikh service: Never Active member of club or [...] Narrative ??? Not on file Physical Exam: Vitals: 06/15/19 0945 BP: 117/72 Pulse: (!) 58 Resp: 18 SpO2: 100% General: Alert, interactive, no distress. Eyes: Normal sclera; pupils equal nd round; no ocular discharge ENT: No rhinorrhea; Mucous membranes moist; No oropharyngeal lesions. Lymph: No cervical or supraclavicular lymphadenopathy. Cardiac: Regular rate & rhythm; no murmurs, rubs, or gallops. Pulm: Clear to auscultation bilaterally, no wheezes, good aeration to the bases. Abd: Soft, nontender, nondistended, normal bowel sounds. Skin: No rashes. Extr: Warm & well-perfused. Impression/Report/Plan: #1 Penicillin / Amoxicillin Allergy Ms. Oliveros has a history of reaction to amoxicillin several years ago consisting of rash. Today she was in agreement to proceeding with penicillin skin testing. This returned negative so we proceeded to an amoxicillin challenge. ?? 250mg of amoxicillin was administered and she was subsequently observed for one hour without issue. ?? Ms. Oliveros has passed the challenge without adverse reaction. We did discuss that although she has passed an oral challenge, her risk for developing an allergic reaction to amoxicillin is the same as the general population and could develop a reaction in the future. ?? Penicillin and amoxicillin allergy has been removed from her allergy list. ?? This case was discussed with Dr. Schuyler Morris M.D. Allergy Fellow documented in this encounter Plan of Treatment Upcoming Encounters Date Type Specialty Care Team Description 11/01/2022 Office Visit Urology Regina Black, DIANN, C.N.P. [address] [phone] (Wo rk) documented as of this encounter Visit Diagnoses Diagnosis Allergy Antibiotic Personal History Allergy Drug Personal History documented in this encounter Administered Medications Inactive Administered Medications - up to 3 most recent administrations Medication Order MAR Action Action Date Dose Rate Site amoxicillin 250 mg/5 mL suspension Given 06/15/2019 8:45 AM CDT 250 mg 250 mg (AMOXIL) 250 mg, oral, Once, On Ruchi 06/14/19 at 0000, For 1 dose, Drug Monitoring Program: Pharmacist to adjust medication dosing based on indication and drug clearance factors., Indications: Prophylaxis, medical, amoxicillin challenge documented in this encounter Additional Health Concerns Assessment Noted Time PHQ-9 Depression Total Score: 2 04/17/2019 10:20 AM CD T documented as of this encounter Care Teams Leather Goods Sales Representative Relationship Specialty Start Date End Date Cindy Alarcon M.D. PCP - General 04/28/17 08/14/20 documented as of this encounter
--- OUTSIDE RECORDS SUMMARY | 2022-09-22 13:33 | XMS_ITS | Encounter Summary ---
:1955 Author Organization [facility] Address [address] [place] [address] Care Team Providers Name Role Phone Cindy Alarcon M.D. Primary Care Provider Reason for Referral Medication Prior Authorization (Routine) - Authorized Specialty Diagnoses / Procedures Referred By Contact Refer red To Contact Cindy Alarcon M.D. [facility]8 [employer] Sales [facility] [address] [place] [address] Referral ID Status Reason Start Date Expiration Date Visits V isits Requested Authorized [id number] Authorized 09/28/2019 09/28/2020 Reason for Visit Reason Comments Med Refill Encounter Details Date Type Department Care Team Description 05/29/2019 Refill Department of [facility] Daina Alarcon M.D. Med Refill Internal Medicine in [address] [place], [place] [address]wicho Sales [facility] [address] [place] [address] [place] [address] [place] [address] Social History Tobacco Use Types [...] er 09/12/2022 How often do you attend anabaptism or hindu services? Never 05/13/2019 Do you belong to any clubs or organizations such as anabaptism N o 09/12/2022 groups, unions, fraternal or [...] place to sleep or slept in a assisted (including now)? Education Answer Date Recorded What is the highest level of school Bachelor's degree (e.g., BA, AB, 05/13/2019 you have completed or the highest BS) degree you have received? 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 [address] [phone] (Wo rk) documented as of this encounter Visit Diagnoses Not on filedocumented in this encounter Additional Health Concerns Assessment Noted Time PHQ-9 Depression Total Score: 2 04/17/2019 10:20 AM CD T documented as of this encounter Care Teams Box Builder Relationship Specialty Start Date End Date Cindy Alarcon M.D. PCP - General 04/28/17 08/14/20 documented as of this encounter
--- OUTSIDE RECORDS SUMMARY | 2022-09-22 13:33 | XMS_ITS | Encounter Summary ---
:1955 Author Organization [facility] Address [address] [place] [address] Care Team Providers Name Role Phone Niecy Herrera M.D., M.P.H. Primary Care Provider [phone] Reason for Visit Reason Comments Sleep Apnea Appointment Request (Routine) - Closed Specialty Diagnoses / Procedures Referred By Contact Refer red To Contact Sleep Medicine Diagnoses Apnea Sleep Obstructive Referral ID Status Reason Start Date Expiration Date Visits Requ ested Visits Authorized [id number] Closed 10/24/2020 10/24/2021 1 1 Encounter Details Date Type Department Care Team Description 11/12/2020 [facility] [place], Apnea Sleep Obstructive (Primary Dx); Medicine in Trey W III, Depression An xiety; [place], [place] MJuanchoD. Thyroidectomy Partial Status Post; [address] Hypothyroidism On Replacement; [place], [place] Gastroesophag eal Reflux Disease [phone] Social History Tobacco Use Types Packs/Day Years [...] How often do you attend anabaptist or gnosticism services? 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 - 11/12/2020 9:30 AM CST Images from the original note were not included. SUBJECTIVE REASON FOR VISIT Chief Complaint Patient presents with ??? Sleep Apnea The patient was present for a follow-up visit via real-time audio/video technology by Dr. Trey Ac on 11/12/2020. This visit took place during the national emergency related to the COVID-19 pandemic. HISTORY OF PRESENT ILLNESS Emelyn Oliveros is a 65 y.o. female is in her home in [facility]. No one else is with her during this visit. She reports that she is doing very well with her depression anxiety and sleep under the care of a psychiatrist in [place] who has adapted her current medication regimen to optimal benefit including 60 mg of doxepin, buspirone 5 mg 8 times a day as noted below. With regard to CPAP she says she has adapted well to it. Occasionally she will doze off without it and find that she does not sleep well. Download from her device indicates that set at 8 cm of water pressure with use more than 4 hours 90 days between 07/26/2020 and 10/23/2020 100% utilization more than 4 hours average use 7 hours 59 minutes 21 seconds. Average AHI 2.8. Average time large leak 0 seconds. She has been using her old device which was an auto BiPAP which reset at 8 cm of water pressure. Her device is no longer viable. She needs a new device. She reports no excessive sleepiness or other ongoing sleep problems. Current Outpatient Medications: ??? ascorbic acid, vitamin C, (VITAMIN C) 500 mg capsule, extended release CR capsule, Take 500 mg by mouth., Disp: , Rfl: ??? busPIRone (BUSPAR) 5 mg tablet, Take 1 tablet (5 mg total) by mouth as directed. 8 times a day, Disp: , Rfl: ??? cholecalciferol (VITAMIN D3) 2,000 Unit capsule, Take 1 capsule by mouth daily. , Disp: , Rfl: ??? clonazePAM (for_KlonoPIN) 1 mg tablet, Take 1 tablet (1 mg total) by mouth daily as needed for anxiety., Disp: 30 tablet, Rfl: 0 ??? cranberry extract (CRAN-MAX) 500 mg capsule capsule, Take 500 mg by mouth., Disp: , Rfl: ??? doxepin (SINEquan) 10 mg capsule, Take 50 capsules by mouth at bedtime. Along with 10 mg for HS dose of 60 mg , Disp: , Rfl: ??? doxepin (SINEquan) 10 mg capsule, Take 10 mg by mouth at bedtime. Along with 50 mg for dose of 60 mg HS, Disp: , Rfl: ??? hypochlorous acid-sodium chlor (ACUICYN) 0.01 % topical spray, Apply 40 mL topically., Disp: , Rfl: ??? HYPROMELLOSE (SYSTANE GEL OPHT), Administer 1 drop into both eyes 2 (two) times a day., Disp: , Rfl: ??? miscellaneous medical supply misc, autoSV, heated humidifier, mask, headgear, filters and tubing. Length of Need: 99, Disp: , Rfl: ??? PNV NO.95/FERROUS FUM/FOLIC AC ( MULTIVITAMINS ORAL), Take 1 tablet by mouth daily. , Disp: , Rfl: ??? SYNTHROID 75 mcg tablet, Take 1 tablet (75 mcg total) by mouth every morning before breakfast., Disp: 90 tablet, Rfl: 3 ??? DME CPAP, DME Order fit interface to patient comfort, Disp: 1 Device, Rfl: 0 Allergies Allergen Reactions ??? Antibiotic Cream Rash ??? Bupropion Hcl Tinnitus ??? Cat Dander Other (see comments) ??? Chlorhexidine Rash ??? Fluoxetine Hives FLUOXETINE HCL - Prozac ??? House Dust Mite Other (see comments) ??? Ibuprofen GI bleeding ??? Iron,Carbonyl-Vitamin C Other (see comments) ??? Ncjxblxa-Nywnosyti-Oqwrinjta Rash ??? Nsaids (Non-Steroidal Anti-Inflammatory Drug) GI bleeding ??? Sertraline GI intolerance bruxism and constipation at high doses ??? Tape [Adhesive Tape-Silicones] Rash Standardized Instruments Conklin Score: 2 (11/10/20 1632 : Patient, Online Services) Scores of less than 10 are considered within the normal range. Details: () - would never doze; 1 - slight chance of dozing; - moderate chance of dozing; 3 - high chance of dozing) Sitting and reading: Would never doze Watching TV: Would never doze Sitting inactive in a public place (e.g. A theater or meeting: Would never doze As a passenger in a car for an hour without a break: Would never doze Lying down to rest in the afternoon when circumstances permit: Moderate chance of dozing Sitting and talking to someone: Would never doze Sitting quietly after a lunch without alcohol: Would never doze In a car, while stopped for a few minutes in traffic: Would never doze Moisés Lew., A new method for measuring daytime sleepiness: the Conklin sleepiness scale. Sleep, 1991. 14(6): p. 540-5. PHYSICAL EXAM Appearance: Well groomed, in no apparent distress. Good eye contact. No abnormal movements noted. Consciousness: Alert and oriented, without psychomotor abnormalities. Cooperation: Cooperative, reliable informant. Mood: Euthymic mood, with a mood-congruent and fully-reactive affect. Speech: Of regular rate, rhythm, prosody and volume. Thought Form: Goal-oriented and linear with no indication of a formal-thought disorder. Cognition: Cognition was not formally assessed, but based on the form and content of the interview and discussion appears intact. Attention: No apparent abnormalities in attention or concentration. Fund of Knowledge: Knowledge base appears within normal limits. Abstraction: Abstraction abilities appear within normal limits. Insight: Good insight and motivation. ASSESSMENT / PLAN #1 Apnea Sleep Obstructive #2 Depression Anxiety #3 Thyroidectomy Partial Status Post #4 Hypothyroidism On Replacement #5 Gastroesophageal Reflux Disease ??? The patient continues to have a medical condition for which PAP is medically indicated. The replacement of accessories is medically necessary and essential to use PAP effectively.?? My opinion is that she continues to achieve excellent benefit with excellent utilization. Continue treatment is medically indicated. I will provide a new prescription based on her most recent laboratory study which was January 12, 2018 when her AHI was greater than 15. Her request I will have this prescription and medical justification faxed to the [facility] CPAP store and a copy mail to her for her records at home. At present no definite further appointments are made at the [facility]. PATIENT EDUCATION Ready to learn, no apparent learning barriers were identified; learning preferences include listening. Explained diagnosis and treatment plan; patient expressed understanding of the content. I personally spent a total of 25 minutes in this video visit with her. Trey Ac III, M.D. Answers for HPI/ROS submitted by the patient on 11/10/2020 No general issues: Yes No eye issues: Yes No ENT issues: Yes No heart issues: Yes No respiratory issues: Yes No GI issues: Yes Back pain/stiffness: Yes No skin issues: Yes No neurologic issues: Yes Feeling nervous, anxious or on edge: Yes No blood/lymph issues: Yes No urinary/reproductive issues: Yes T PLANT OPERATOR documented in this encounter Plan of Treatment Upcoming Encounters Date Type Specialty Care Team Description 11/01/2022 Office Visit Urology Regina Black, DIANN, C.N.P. [address] [place] [phone] (Wo rk) documented as of this encounter Visit Diagnoses Diagnosis Apnea Sleep Obstructive - Primary Depression Anxiety Thyroidectomy Partial Status Post Hypothyroidism On Replacement Gastroesophageal Reflux Disease documented in this encounter Additional Health Concerns Assessment Noted Time PHQ-9 Depression Total Score: 2 04/17/2019 10:20 AM CD T documented as of this encounter Care Teams Therapy Administrative Assistant Relationship Specialty Start Date End Date Niecy Herrera M.D., M.P.H. PCP - General 08/15/20 [address] [place] [address] documented as of this encounter
--- OUTSIDE RECORDS SUMMARY | 2022-09-22 13:34 | XMS_ITS | Encounter Summary ---
:1955 Author Organization [facility] Address [address] [place] [address] Care Team Providers Name Role Phone Cindy Alarcon M.D. Primary Care Provider Encounter Details Date Type Department Care Team Description 05/12/2018 Ancillary Procedure Department of Dental Arian Xie, Specialties in [place], [place] [address] [place] [address] Social History Tobacco Use Types Packs/Day [...] How often do you attend scientology or alevism services? Never 05/13/2019 Do you [...] slept in a long term (including now)? Sex Assigned at Date Recorded Female 11/29/2017 6:36 PM DIRECTOR REGULATORY AGENCY documented as of this encounter Plan of Treatment Upcoming Encounters Date Type Specialty Care Team Description 11/01/2022 Office Visit Urology Regina Black, DIANN, C.N.P. [address] [phone] (Wo rk) documented as of this encounter Results [employer] (05/12/2018 7:54 AM CDT) Specimen (Source) Anatomical Location Collection Method / Collectio n Time Received Time / Laterality Volume Narrative This result has an attachment that is no t available. Arian Xie D.M.D. DENTAL ORDERABLES documented in this encounter Visit Diagnoses Not on filedocumented in this encounter Care Teams Director General Relationship Specialty Start Date End Date Cindy Alarcon M.D. PCP - General 04/28/17 08/14/20 documented as of this encounter
--- OUTSIDE RECORDS SUMMARY | 2022-09-22 13:34 | XMS_ITS | Encounter Summary ---
:1955 Author Organization [facility] Address [address] [place] [address] Care Team Providers Name Role Phone Cindy Alarcon M.D. Primary Care Provider Reason for Visit Reason Comments Follow-up 2 wk follow up hemorrhoids p atient states things are [facility] better Encounter Details Date Type Department Care Team Description 07/14/2018 Office Visit Department of General Tomas Wallis Fo llow Up Examination Surgery in [place] Postoperative Visit [place] [address] (Primary Dx) [address] [place] [phone] Social History Tobacco Use Types Packs/Day [...] How often do you attend amish or jehovah's witness services? Never 05/13/2019 Do [...] place to sleep or slept in a detention (including now)? 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 - 07/14/2018 11:15 AM CDT Emelyn is a 62-year-old female seen today for scheduled follow-up after evaluation several weeks ago for a rectal mass that was bleeding. Clinically this was felt to be a thrombosed hemorrhoid however on examination we cannot be certain. She presents today feeling much better and feeling as though the mass has shrunk. She has not had any bleeding recently. Current Outpatient Prescriptions Medication Sig Dispense Refill ??? busPIRone (for_BUSPAR) [...] eyes 2 (two) times a day. ??? miscellaneous medical supply misc autoSV, heated humidifier, mask, headgear, filters and tubing.Length of Need: 99 ??? PNV NO.95/FERROUS FUM/FOLIC AC ( MULTIVITAMINS ORAL) Take 1 tablet by mouth daily. ??? raNITIdine (ZANTAC MAXIMUM STRENGTH) 150 mg tablet Take by mouth. As needed ??? SYNTHROID 75 mcg tablet Take 1 tablet (75 mcg total) by mouth every morning before breakfast. Brand Name. 90 tablet 3 No current facility-administered medications for this visit. BP 117/61 (BP Location: Right arm, Patient Position: Sitting, Cuff Size: Large) Pulse 81 Temp 36.6 ??C (Temporal) PHYSICAL EXAMINATION: General: Appears well. Rectal: External examination only was performed. The area in question appears to be a benign external hemorrhoid, much smaller and without thrombosis or ulceration at this point. There is no associatedtenderness. IMPRESSION/PLAN: Thrombosed ulcerated hemorrhoid that was previously bleeding but now has resolved. Reassurance was provided. Patient was advised this certainly could return and, if it did, I would recommend excision. It would be in her interest to present earlier in that condition if it were to happen again. In the me antime, she denies any difficulty straining and feels that this began with an episode of diarrhea related to the flu. That also seems to have resolved. She will follow up as needed. Electronically signed by: Tomas aWllis M.D. 07/24/18 7:50 AM documented in this encounter Plan of Treatment Upcoming Encounters Date Type Specialty Care Team Description 11/01/2022 Office Visit Urology Regina Black APRN, C.N.P. [address] [place], [place] [phone] (Wo rk) documented as of this encounter Visit Diagnoses Diagnosis Follow Up Examination Postoperative Visi t - Primary documented in this encounter Care Teams Printed Circuit Layout Taper Relationship Specialty Start Date End Date Cindy Alarcon M.D. PCP - General 04/28/17 08/14/20 documented as of this encounter
--- OUTSIDE RECORDS SUMMARY | 2022-09-22 13:34 | XMS_ITS | Encounter Summary ---
:1955 [facility] Address [address] [place] [address] Care Team Providers Name Role Phone Cindy Alarcon M.D. Primary Care Provider Reason for Visit Reason Comments odor to urine Appointment Request (Routine) - Closed Specialty Diagnoses / Procedures Referred By Contact Refer red To Contact Community Internal Medicine Referral ID Status Reason Start Date Expiration Date Visits Requ ested Visits Authorized [id number] Closed 03/14/2019 03/13/2020 1 Encounter Details Date Type Department Care Team Description 03/16/2019 Office Visit Department of Cindy Alarcon M.D . Screening Condition (Primary Dx); Community Internal [address] [facility] in [address] [address] [address] [facility] [place] [address] Social History Tobacco Use Types [...] er 09/12/2022 How often do you attend mu-ism or holiness services? Never 05/13/2019 Do you belong to any clubs or organizations such as mu-ism N o 09/12/2022 groups, unions, fraternal or [...] or slept in a assisted (including now)? Sex Assigned at Date Recorded Female 11/29/2017 6:36 PM APPLIQUER documented as of this encounter Last Filed Vital Signs Vital Sign Reading Time Taken Comments Blood Pressure 118/76 03/16/2019 3:19 PM CDT Pulse 73 03/16/2019 3:19 PM CDT Temperature 36.6 ??C (97.9 ??F) 03/16/2019 3:19 PM CDT Respiratory Rate 16 03/16/2019 3:19 PM CDT Oxygen Saturation - - Inhaled Oxygen Concentration - - Weight 87.7 kg (193 lb 5.5 oz) 03/16/2019 3:19 PM CDT Height - - Body Mass Index 30.49 06/22/2018 3:33 PM CDT documented in this encounter Patient Instructions Patient InstructionsCindy Alarcon M.D. - 03/16/2019 3:30 PM CDT You need to schedule annual physical examination, review medical problems and renew medications. Last annual physical examination was done on 01/20/2018. documented in this encounter Progress Notes Margarita Manuel L.P.N. - 03/16/2019 3:30 PM CDT Name of person contacted: Patient Relationship to patient: Not applicable Call back number: [phone] Instructor Warper: Not applicable Information provided: Per Dr. Alarcon: Urine culture grew out E.Coli. A prescription for Levaquin has been sent to your pharmacy. personal computer network analyst/patient received and understood education/information provided: Yes personal computer network analyst/patient agreed to the Plan of Care: Yes Cindy Alarcon M.D. - 03/16/2019 3:30 PM CDT SUBJECTIVE CHIEF COMPLAINT/ REASON FOR VISIT 1. Urine odor 2. Back pain HISTORY OF PRESENT ILLNESS Emelyn Oliveros is a 63 y.o. female who presents to the clinic today for above complaints. She noticed strong urine odor intermittently for few months. She does not have dysuria or significant urinary frequency. She has back pain. She denies fever or chills. Last night she looked at her urine. It was pale yellow color. There was no blood. She denies change in diet or medications. I reviewed and updated medical record. Medication reconciliation was done. I answered all of their questions. Patient does not have additional questions, concerns, or complaints. MEDICATIONS Current Outpatient Prescriptions Medication Sig Dispense Refill [...] by mouth every morning before breakfast. 90tablet 1 ??? B complex-vitamins (BALANCE B-50) tablet Take 1 tablet by mouth daily. ??? DOCOSAHEXANOIC ACID/EPA (FISH OIL ORAL) Take 1 capsule by mouth daily. ??? Lactobacillus rhamnosus GG-inulin (CULTURELLE) 10 billion cell -200 mg per sprinkle capsule Take1 capsule by mouth 2 (two) times a day with meals. Open capsule and mix until dissolved in a cool beverage or sprinkle onto applesauce. Mix until dissolved. ??? levoFLOXacin (LEVAQUIN) 250 mg tablet Take 1 tablet (250 mg total) by mouth daily for 7 days. 7 tablet 0 No current facility-administered medications for this visit. ALLERGIES/CONTRAINDICATIONS Allergies Allergen Reactions ??? Amoxicillin Hives and [...] SULFA DRUGS ??? Tape [Adhesive Tape-Silicones] Rash SYSTEMS REVIEW [...] Disorder Left 11/15/2017 ??? Tinnitus Bilateral 12/30/2017 SURGICAL HISTORY Past Surgical History: Procedure Laterality Date ??? BREAST BIOPSY Left Negative ??? BREAST FIBROADENOMA SURGERY Left ??? COLONOSCOPY 08/22/2014 Complicated with perforation. Repeat in 10 years. [place], [place] ??? DILATATION AND CURETTAGE ??? ESOPHAGOGASTRODUODENOSCOPY 08/22/2014 ??? STRABISMUS SURGERY Bilateral 1986 ??? THYROIDECTOMY, PARTIAL Right 06/06/2015 Right thyroid lobectomy and isthmusectomy. ??? TONSILLECTOMY SOCIAL HISTORY Social History Social History ??? Marital status: Spouse name: N/A ??? Number of children: N/A ??? Years of education: N/A Occupational History ??? [employer] Social History Main Topics ??? Smoking status: Never Smoker ??? Smokeless tobacco: Never Used ??? Alcohol use Yes Comment: Social ??? Drug use: No ??? Sexual activity: Not Asked Other Topics Concern ??? None Social History Narrative ??? None History Drug Use No History Alcohol Use ??? Yes Comment: Social FAMILY HISTORY Family History Problem Relation Age of Onset ??? Heart attack Father ??? Coronary artery disease Father ??? Stroke Father ??? Alcohol user Father ??? Bladder cancer Brother ??? Emphysema Mother ??? Hypertension Mother ??? Gluten sensitivity Sister ??? Diabetes Maternal Grandmother ??? Heart disease Brother ??? Alcohol abuse Brother OBJECTIVE VITAL SIGNS Vitals: 03/16/19 1519 BP: 118/76 Patient Position: Sitting Pulse: 73 Temp: 36.6 ??C Resp: 16 Weight: 87.7 kg PHYSICAL EXAMINATION General: Patient is sitting. No distress. Able to talk without interruption. Skin: No rash, bruise or nodules. Head: No facial rash, asymmetry or sinus tenderness. Eyes: PERRLA. EOMI. No pallor, icterus or conjunctivitis. ENT: No nasal congestion, discharge or bleeding. Tongue is moist and midline. No oral lesions. Heart: No carotid bruit. No JVD. Regular rhythm. There is no S3, gallop, murmur or thrill. Lungs: Normal respiratory effort. Clear to auscultation. Abdomen: Moves with respiration. Bowel sounds present. Soft. No rebound tenderness, guarding or rigidity. No CVA tenderness. Extremities: No clubbing, cyanosis, edema, infection or calf tenderness. Gait: No abnormal gait. Mental: Alert and oriented x 3. Normal mood and affect. Neuro: Grossly nonfocal exam. ASSESSMENT / PLAN #1 Urine Odor #2 Pain Back We discussed possibly etiology. We need to make sure he does not have urinary tract infection. It was decided to check urinalysis with urine culture. Advised her to drink plenty of water. Will treat with antibiotic if there is evidence of UTI. #3 Today Studies Following studies were done today: Urinalysis with urine culture. #4 Follow-up Visit Advised her to schedule an appointment for annual physical exam, review medical problems and renew medication. She needs to do following tests few days before the appointment: documented in this encounter Plan of Treatment Upcoming Encounters Date Type Specialty Care Team Description 11/01/2022 Office Visit Urology Regina Black APRN, C.N.P. [address] [phone] (Wo rk) documented as of this encounter Procedures Procedure Name Priority Date/Time Associated Comments Diagnosis BACTERIAL CULTURE, Routine 03/16/2019 3:59 PM Screening Condition Results for this AEROBIC + SUSC, URINE CDT Pain Back proced ure are in the results section. URINALYSIS WITH Routine 03/16/2019 3:59 PM Screening Con dition Results for this MICROSCOPIC CDT Pain Back procedure are i n the results section. documented in this encounter Results (ABNORMAL) Bacterial Culture, Aerobic + Susc, Urine (03/16/2019 3:59 PM CDT) Component Value Ref Test Analysis Performed At [facility] Range Method Time Signature Urine ESCHERICHIA COLI 03/18/2019 [facility] Culture >100,000 cfu/mL 9:57 AM CDT HEALTH (A) SYSTEM- [facility] Urine AEROCOCCUS URINAE 03/18/2019 [facility] Culture >100,000 cfu/mL 9:57 AM CDT HEALTH Susceptibilities not performed per laboratory criteria. [facility] ([facility] Specimen Anatomical Collection Method Collection Time Receive d Time (Source) Location / / Volume Laterality Urine (Urine, 03/16/2019 3:59 PM 03/16/20 19 6:55 Midstream) CDT PM CDT Comment: Specimen Source Site: Urine Organism Antibiotic Method Susceptibility Escherichia coli Ampicillin SUSCEPTIBILITY, >=32 mcg/mL: Re sistant DINORAH (MCG/ML) Escherichia coli Ampicillin + Sulbactam SUSCEPTIBILITY, 4 mcg/mL : Susceptible DINORAH (MCG/ML) Escherichia coli Piperacillin + Tazobactam SUSCEPTIBILITY, <=4 m cg/mL: Susceptible DINORAH (MCG/ML) Escherichia coli Cefazolin SUSCEPTIBILITY, <=4 mcg/mL: Harmony ceptible DINORAH (MCG/ML) Escherichia coli Ceftazidime SUSCEPTIBILITY, <=1 mcg/mL: Harmony ceptible DINORAH (MCG/ML) Escherichia coli Ceftriaxone SUSCEPTIBILITY, <=1 mcg/mL: Harmony ceptible DINORAH (MCG/ML) Escherichia coli Cefepime SUSCEPTIBILITY, <=1 mcg/mL: Harmony ceptible DINORAH (MCG/ML) Escherichia coli Aztreonam SUSCEPTIBILITY, <=1 mcg/mL: Harmony ceptible DINORAH (MCG/ML) Escherichia coli Ertapenem SUSCEPTIBILITY, <=0.5 mcg/mL: DINORAH (MCG/ML) Susceptible Escherichia coli Meropenem SUSCEPTIBILITY, <=0.25 mcg/mL: DINORAH (MCG/ML) Susceptible Escherichia coli Gentamicin SUSCEPTIBILITY, <=1 mcg/mL: Harmony ceptible DINORAH (MCG/ML) Escherichia coli Tobramycin SUSCEPTIBILITY, <=1 mcg/mL: Harmony ceptible DINORAH (MCG/ML) Escherichia coli Levofloxacin SUSCEPTIBILITY, <=0.12 mcg/mL: DINORAH (MCG/ML) Susceptible Escherichia coli Nitrofurantoin SUSCEPTIBILITY, <=16 mcg/mL: Argueta sceptible DINORAH (MCG/ML) Escherichia coli Trimethoprim + SUSCEPTIBILITY, <=20 mcg/mL: Argueta sceptible Sulfamethoxazole DINORAH (MCG/ML) Cindy Alarcon M.D. LAB MICROBIOLOGY - GENERAL O RDERABLES Performing Organization Address City/State/ZIP Code Phon e Number [facility] [address] [place] [address] LAB (ABNORMAL) Urinalysis with Microscopic: Urine, Clean Catch (03/16/2019 3:59 PM CDT) athologist Signature Source Midstream 03/16/2019 [facility] 4:03 PM T [facility] [place] [facility] Clarity Clear Clear 03/16/2019 [facility] 4:07 PM [facility] [place] [facility] Color Yellow 03/16/2019 [facility] 4:07 PM [facility] [place] Comment: ----REFERENCE VALUE---- Colorless Yellow Lauren Blood Negative Negative 03/16/2019 4:07 PM [facility] [place] [facility] Nitrite Positive (A) Negative 03/16/2019 4:07 PM [facility] [place] [facility] Leukocyte Esterase Small (A) Negative 03/16/2019 4:07 PM [facility] [place] [facility] Protein Negative mg/dL 03/16/2019 4:07 PM [facility] [place] [facility] Comment: ----REFERENCE VALUE---- Negative Trace Glucose Negative Negative mg/dL 03/16/2019 4:07 PM [facility] [place] [facility] Ketones, QI(U) Negative Negative mg/dL 03/16/2019 4:07 PM [facility] [place] [facility] Bilirubin Negative Negative 03/16/2019 4:07 PM [facility] [place] [facility] pH 5.5 5.0 - 8.0 03/16/2019 4:07 PM [facility] [place] [facility] Specific [place] 1.010 1.001 - 1.035 03/16/2019 4:07 PM [facility] [place] [facility] Urobilinogen 0.2 0.2 - 1.0 mg/dL 03/16/2019 4:07 PM [facility] [place] [facility] White Blood Cells 4-10 /hpf 03/16/2019 4:07 PM [facility] Comment: ----REFERENCE VALUE---- Males: 0-3 Females: 0-10 Unknown: 0-10 Red Blood Cells Occ-2 0 - 2 /hpf 03/16/2019 4:07 PM CDT [facility] Bacteria Present (A) None Seen 03/16/2019 4:07 PM CDT [email or web address] Specimen Anatomical Collection Method Collection Time Receive d Time (Source) Location / / Volume Laterality Urine (Urine, 03/16/2019 3:59 PM 03/16/20 3:59 Clean Catch) CDT PM CDT Cindy Alarcon M.D. LAB URINE ORDERABLES Performing Organization Address City/State/ZIP Code Phon e Number [email or web address] [address] [place] [address] LAB documented in this encounter Visit Diagnoses Diagnosis Screening Condition - Primary Pain Back documented in this encounter Additional Health Concerns Assessment Noted Time PHQ-9 Depression Total Score: 2 03/16/2019 3:22 PM CDT documented as of this encounter Care Teams Clinical Information Systems Director Relationship Specialty Start Date End Date Cindy Alarcon M.D. PCP - General 04/28/17 08/14/20 documented as of this encounter
--- OUTSIDE RECORDS SUMMARY | 2022-09-22 13:34 | XMS_ITS | Encounter Summary ---
:1955 Author Organization [facility] Address [address] [place] [address] Care Team Providers Name Role Phone Cindy Alarcon M.D. Primary Care Provider Encounter Details Date Type Department Care Team Description 03/14/2019 [facility] [place], [place] [address] [place] [address] Social History Tobacco Use Types Packs/Day Years [...] How often do you attend scientologist or taoism services? Never 05/13/2019 Do you belong to [...] at Date Recorded Female 11/29/2017 6:[address] COMMISSIONER documented as of this encounter Miscellaneous Notes Telephone Encounter - Aixa Keith R.N. - 03/14/2019 7:47 AM CDT Patient was provided aftercare instructions. documented in this encounter Plan of Treatment Upcoming Encounters Date Type Specialty Care Team Description 11/01/2022 Office Visit Urology Regina Black, DIANN, C.N.P. [address] [phone] (Wo rk) documented as of this encounter Visit Diagnoses Not on filedocumented in this encounter Care Teams Desulphurizer Operator Relationship Specialty Start Date End Date Cindy Alarcon M.D. PCP - General 04/28/17 08/14/20 documented as of this encounter
--- OUTSIDE RECORDS SUMMARY | 2022-09-22 13:34 | XMS_ITS | Encounter Summary ---
:1955 Author Organization [facility] Address [address] [place] [address] Care Team Providers Name Role Phone Cindy Alarcon M.D. Primary Care Provider Encounter Details Date Type Department Care Team Description 04/17/2019 Hospital Encounter Department of Cindy Alarcon M.D. Diarrhea Laboratory Medicine in [address] [facility] [address] [place] [address] [place] [address] Social History Tobacco Use Types [...] er 09/12/2022 How often do you attend presybeterian or mu-ism services? Never 05/13/2019 Do you belong to any clubs or organizations such as presybeterian N o 09/12/2022 groups, unions, fraternal or [...] slept in a senior care (including now)? Sex Assigned at Date Recorded Female 11/29/2017 6:36 PM WRIST LINER documented as of this encounter Medications at Time of Discharge Medication Sig Dispensed Refills Start Date End Date cholecalciferol (VITAMIN Take 1 capsule by 0 D3) 50 mcg (2,000 Unit) mouth daily. capsule clonazePAM (for_KlonoPIN) Take 1 tablet (1 mg 30 tablet 0 1 12/21/2016 1 mg tablet total) by mouth daily as needed for anxiety. HYPROMELLOSE (SYSTANE GEL Administer 1 drop 0 09/2016 OPHT) into both eyes 2 (two) times a day. miscellaneous medical autoSV, heated 0 09/20/2014 supply [employer] humidifier, mask, headgear, filters and tubing. Length of Need: 99 PNV NO.95/FERROUS Take 1 tablet by 0 10/22/2016 FUM/FOLIC AC ( mouth daily. MULTIVITAMINS ORAL) B complex-vitamins Take 1 tablet by 0 [...] or sprinkle onto applesauce. Mix until dissolved. levoFLOXacin (LEVAQUIN) Take 1 tablet (250 7 tablet 0 05/0 04/201905/14/2019 250 mg tablet mg total) by mouth daily for 7 days. raNITIdine (ZANTAC Take by mouth. As 0 11/12/2020 MAXIMUM STRENGTH) 150 mg needed tablet SYNTHROID 75 mcg tablet Take 1 tablet (75 90 tablet 1 11/2805/29/2019 mcg total) by mouth every morning before breakfast. documented as of this encounter Miscellaneous Notes Result Encounter Note - Alexsander Mcknight V. C.M.A. - 04/17/2019 11:59 PM CDT Name of person contacted: Patient Relationship to patient: Not applicable Call back number: N/A Instructional Technologist: N/A Information provided: Contacted and discussed with patient recent test results, patient did show an understanding of results. Patient did want me to remind you that they did send you a message via portal, but would like me to notify you that they recent had a resurgence of UTI and was tested at [facility] (04.28.2019). They would like you thoughts on it and if you have any further advice regarding this. (Notes in care everywhere). They also wanted you to be aware that Dr. Shaw did place the referral for the motorcycle mechanic apprentice/immunotherapist, but to see if this is also the testing/orders you had in mind, since according to patient it would only test penicillins. pharmaceutical salesperson/patient received and understood education/information provided: Yes pharmaceutical salesperson/patient agreed to the Plan of Care: Yes documented in this encounter Plan of Treatment Upcoming Encounters Date Type Specialty Care Team Description 11/01/2022 Office Visit Urology Regina Black APRN, C.N.P. [address], [place] [phone] (Wo rk) documented as of this encounter Procedures Procedure Name Priority Date/Time Associated Diagnosis Comme nts GI PATHOGEN PANEL, Routine 04/27/2019 2:20 PM Diarrhea Res ults for this PCR, F CDT procedure are i n the results section. documented in this encounter Results GI Pathogen Panel, PCR, Feces (04/27/2019 2:20 PM CDT) [facility] Method Time Signature Specimen Source STOOL 04/27/2019 10:52 PM CDT Campylobacter Negative Negative 04/27/2019 species 10:52 PM CDT C. difficile toxin Negative Negative 04/27/2019 10:52 PM CDT Plesiomonas Negative Negative 04/27/2019 shigelloides 10:52 PM CDT Salmonella species Negative Negative 04/27/2019 10:52 PM CDT Vibrio species Negative Negative 04/27/2019 10:52 PM CDT Vibrio cholerae Negative Negative 04/27/2019 10:52 PM CDT Yersinia species Negative Negative 04/27/2019 10:52 PM CDT Enteroaggregative E. Negative Negative 04/27/2019 coli (EAEC) 10:52 PM CDT Enteropathogenic E. Negative Negative 04/27/2019 coli (EPEC) 10:52 PM CDT Enterotoxigenic E. Negative Negative 04/27/2019 coli (ETEC) 10:52 PM CDT Shiga toxin Negative Negative 04/27/2019 producing E. coli 10:52 PM CDT Shigella/Enteroinvas Negative Negative 04/27/2019 yennifer E. coli 10:52 PM CDT Cryptosporidium Negative Negative 04/27/2019 species 10:52 PM CDT Cyclospora Negative Negative 04/27/2019 cayetanensis 10:52 PM CDT Entamoeba Negative Negative 04/27/2019 histolytica 10:52 PM CDT Giardia Negative Negative 04/27/2019 10:52 PM CDT Adenovirus F40/41 Negative Negative 04/27/2019 10:52 PM CDT Astrovirus Negative Negative 04/27/2019 10:52 PM CDT Norovirus GI/GII Negative Negative 04/27/2019 10:52 PM CDT Rotavirus Ag, F Negative Negative 04/27/2019 10:52 PM CDT Sapovirus Negative Negative 04/27/2019 10:52 PM CDT Comment: ----ADDITIONAL INFORMATION---- This assay is performed using the FDA-cl eared FilmArray GI Panel ([employer] Specimen Anatomical Collection Method Collection Time Receive d Time (Source) Location / / Volume Laterality Stool (Stool) 04/27/2019 2:20 PM 04/27/20 19 9:04 CDT PM CDT Cindy Alarcon M.D. LAB MICROBIOLOGY - GENERAL O RDERABLES Performing Organization Address City/State/ZIP Code Phon e Number [facility] [address] [place] [address] [place] [facility] documented in this encounter Visit Diagnoses Diagnosis Diarrhea documented in this encounter Additional Health Concerns Assessment Noted Time PHQ-9 Depression Total Score: 2 04/17/2019 10:20 AM CD T documented as of this encounter Care Teams Sonar Watchstander Relationship Specialty Start Date End Date Cindy Alarcon M.D. PCP - General 04/28/17 08/14/20 documented as of this encounter
--- OUTSIDE RECORDS SUMMARY | 2022-09-22 13:34 | XMS_ITS | Encounter Summary ---
:1955 Author Organization [facility] Address [address] [place] [address] Care Team Providers Name Role Phone Cindy Alarcon M.D. Primary Care Provider Reason for Visit Outpatient (Routine) - Closed Specialty Diagnoses / Procedures Referred By Contact Refer red To Contact Dentistry / Dental Diagnoses Apnea Sleep Obstructive Trey Ac [facility] [place] Specialties Macie MAIER M.D. [address] [place] [address] Referral ID Status Reason Start Date Expiration Date Visits Requ ested Visits Authorized [id number] Closed 03/31/2018 09/27/2018 1 1 Encounter Details Date Type Department Care Team Description 05/12/2018 Comprehensive Visit Department of Dental Arian Xie Apnea Sleep Specialties in [place] Obstructive ( Primary [place], [place] Dx) [address] [place] [phone] Social History Tobacco Use Types Packs/Day Years [...] do you talk on the phone T rochelle a week 09/12/2022 with family, friends, or neighbors? How often do you get together with friends or relatives? Nev er 09/12/2022 How often do you attend gnosticism or tenriism services? Never 05/13/2019 Do you belong to any clubs or organizations such as gnosticism N o 09/12/2022 groups, unions, fraternal or [...] place to sleep or slept in a penitentiary (including now)? Sex Assigned at Date Recorded Female 11/29/2017 6:36 PM [employer] documented as of this encounter Consult Notes Arian Xie D.M.D. - 05/12/2018 8:00 AM CDT SUBJECTIVE REASON FOR CONSULT Ms. Emelyn Oliveros is a 62 y.o. female referred from [facility] for [facility] Medicine for evaluation of candidacy for an oral appliance in the management of obstructive sleep apnea. Patient isintolerant of CPAP and would like to try the oral appliance for the treatment. . Allergies Allergen Reactions ??? Amoxicillin Hives and [...] ??? Tape [Adhesive Tape-Silicones] Rash Current Outpatient Prescriptions: ??? busPIRone (for_BUSPAR) 10 mg tablet, Take 10 mg by mouth 3 (three) times a day. , Disp: , Rfl: ??? cholecalciferol (VITAMIN D3) 2,000 Unit capsule, Take 1 capsule by mouth daily. , Disp: , Rfl: ??? clonazePAM (for_KlonoPIN) 1 mg tablet, Take 1 tablet (1 mg total) by mouth daily as needed for anxiety., Disp: 30 tablet, Rfl: 0 ??? DOCOSAHEXANOIC ACID/EPA (FISH OIL ORAL), Take 1 capsule by mouth daily. , Disp: , Rfl: ??? HYPROMELLOSE (SYSTANE GEL OPHT), Administer 1 drop into both eyes 2 (two) times a day., Disp: , Rfl: ??? miscellaneous medical supply misc, autoSV, heated humidifier, mask, headgear, filters and tubing. Length of Need: 99, Disp: , Rfl: ??? PNV NO.95/FERROUS FUM/FOLIC AC ( MULTIVITAMINS ORAL), Take 1 tablet by mouth daily. , Disp: , Rfl: ??? raNITIdine (ZANTAC MAXIMUM STRENGTH) 150 mg tablet, Take by mouth. As needed, Disp: , Rfl: ??? SYNTHROID 75 mcg tablet, Take 1 tablet (75 mcg total) by mouth every morning before breakfast. Brand Name., Disp: 90 tablet, Rfl: 3 Past Medical History: Diagnosis Date ??? Abnormal Pap Smear Personal History 11/17/2015 ??? Anemia Iron Deficiency 08/15/2015 ??? Anxiety 01/12/2016 ??? Apnea Sleep Obstructive 09/20/2014 ??? Cancer Skin Basal Cell Personal History 01/29/2018 ??? Cancer Thyroid Family History 01/12/2016 ??? Cyst Sebaceous 02/11/2017 ??? Depression Anxiety 01/03/2009 ??? Diverticulosis Colon 01/12/2016 ??? Elevated Liver Function Test 01/12/2016 ??? Gastroesophageal Reflux Disease 11/17/2015 ??? Hernia Hiatal 01/12/2016 ??? Hyperkalemia 01/12/2016 [...] Negative ??? BREAST FIBROADENOMA SURGERY Left ??? DILATATION AND CURETTAGE ??? STRABISMUS SURGERY Bilateral 1985 ??? THYROIDECTOMY, PARTIAL Right 06/06/2015 Right thyroid lobectomy and isthmusectomy. ??? TONSILLECTOMY OBJECTIVE Patient presented for evaluation of oral appliance candidacy. DENTAL INFORMATION Patient sees a general dentist every 6 months. Dentist / dental office name: Dr. Talavera in [place], [place] Current dental problems - none Anticipated future dental work - no Brux/grind/clench - no Mouth guard - no Gags easily - no History of TMD or jaw pain - no SLEEP INFORMATION Current use of CPAP - yes; seeking a replacement. Sleep evaluation due to: unrestful sleep, sleepy during the day, snoring, fatigue Patient reports sleeping on back most of the time. Use of oral appliance for obstructive sleep apnea - no Jaw surgery for sleep apnea - no Nasal obstruction - no Results from January 122017 Polysomnography Apnea Hypopnea Index: 26 Respiratory Disturbance Index: 38 OBJECTIVE PHYSICAL EXAMINATION Palpation of muscles using pain scale of 0 (no pain) - 10 (severe pain): Temporalis: right - 0/10; left - 0/10 [place]: right - 0/10; left - 0/10 Medial pterygoid: right - 0/10; left - 0/10 Sternocleidomastoid: right - 0/10; left - 0/10 There is a normal range of motion to the temporomandibular joints. Palpation of temporomandibular joints using pain scale of 0 (no pain) - 10 (severe pain): Right: 0/10 Left: 0/10 Temporomandibular joint sounds: Right: none Left: none The neck exhibits negative lymphadenopathy. The intraoral soft tissue evaluation is negative for pathology, including buccal mucosa, gingiva, floor of mouth, dorsal, lateral, ventral surface of the tongue, hard and soft palates. Dentition reveals >8 teeth in the maxilla and >8 teeth in the mandible. Occlusal evaluation reveals stable bilateral posterior contacts and anterior normal relationshipwith 4 mm vertical and 3 mm horizontal overlap. Maximum interincisal opening of 38 mm, right excursion of 11 mm and left excursion of 9 mm. No teeth mobility noted. Teeth contact noted on numbers 2, 3, 4, 5, 8, 12, 13, 20, 21, 25, 28, 29, 30, 31. There is no evidence of caries requiring local dentist attention, and no evidence of periodontal concerns. DIAGNOSTICS Panoramic radiograph reveals normal condylar contours, no bony pathology, clear sinuses. ASSESSMENT / PLAN #1 Apnea Sleep Obstructive Given the findings of the patient, is a candidate for an Oral Appliance. Discussed the difference between CPAP and an oral appliance. Emphasized that the benefit of an oral appliance is related to the reduction of the collapsibility of the soft tissue in the upper airway byadvancing the mandible. Reviewed that upper and lower jaw fitting components are customizable in the fit to their teeth, as is the opportunity to adjust the forward position of the lower jaw through incremental self-adjustments. Reviewed our goal in helping the sleep physician manage the sleep disorder is to find the forwardadjusted position of the lower jaw that improves their perceived sleep-related symptoms of daytime drowsiness, unrestful sleep and insomnia. Mentioned the short-term challenges in accommodating to the oral appliance that includes possible tooth sensitivity, hyper- or hypo-salivation, and jaw muscle orjoint soreness. While in most patients these are generally self-limiting, on occasion they may persist and make wearing the oral appliance difficult. Long-term challenges include the risk of developingtooth movement which has been reported in 30% to 40% of patients using oral appliances. Emphasized that if this occurs it may not be reversible without orthodontic treatment. I also informed the patient that there is a risk of loosening dental restorations including crowns and fillings. If this does happen there will be an additional expense to have it restored by a general dentist. Identified the reported life expectancy of oral appliances is 2-3 years, but this length of time can be shorter if thepatient clenches or grinds their teeth at night. Regarding the overall management of their sleep disorder, it was emphasized that the role played by this office is supportive to their Sleep physician. We will address the initial fitting, the comfort,the identification of the forward position that maximizes benefit, and any troubleshooting of the mechanical complications of his oral appliance will be our responsibility. The follow-up for validatingthe subjective oral appliance benefit, subsequent management of sleep-disordered breathing, and consequences of airway collapse are the responsibility of his referring physician. Answered questions regarding cost and insurance coverage. Patient is going to check with her insurance to see if this will be a covered benefit before she proceeds. I did give the patient our clinic number for her to call us if she does decide that she wants to pursue with the oral appliance. Answered all of the patient questions today. Answers for HPI/ROS submitted by the patient on 03/29/2018 Fatigue: Yes No eye issues: Yes No ENT issues: Yes No heart issues: Yes No respiratory issues: Yes No GI issues: Yes Muscle pain/stiffness: Yes Pain or stiffness in the joints: Yes No skin issues: Yes No neurologic issues: Yes No mental health issues: Yes No blood/lymph issues: Yes No urinary/reproductive issues: Yes documented in this encounter Plan of Treatment Upcoming Encounters Date Type Specialty Care Team Description 11/01/2022 Office Visit Urology Regina Black APRN, C.N.P. [address] [phone] (Wo rk) documented as of this encounter Results [facility] (05/12/2018 7:54 AM CDT) Specimen (Source) Anatomical Location Collection Method / Collectio n Time Received Time / Laterality Volume Narrative This result has an attachment that is no t available. Arian Xie D.M.D. DENTAL ORDERABLES documented in this encounter Visit Diagnoses Diagnosis Apnea Sleep Obstructive - Primary documented in this encounter Care Teams Maintenance Chief Relationship Specialty Start Date End Date Cindy Alarcon M.D. PCP - General 04/28/17 08/14/20 documented as of this encounter
--- OUTSIDE RECORDS SUMMARY | 2022-09-22 13:34 | XMS_ITS | Encounter Summary ---
:1955 Author Organization [facility] [place] Address [address] [place] [address] Care Team Providers Name Role Phone Cindy Alarcon M.D. Primary Care Provider Reason for Visit Reason Comments Annual Exam Appointment Request (Routine) - Closed Specialty Diagnoses / Procedures Referred By Contact Refer red To Contact Community Internal Medicine Referral ID Status Reason Start Date Expiration Date Visits Requ ested Visits Authorized [id number] Closed 03/16/2019 03/15/2020 1 1 Encounter Details Date Type Department Care Team Description 03/23/2019 Comprehensive Visit Department of Cindy Alarcon, Health Maintenance Examination Adult (Primary Dx); [facility] [place] Infection Urinary Tract Escherichia Coli ; Internal Medicine [address] Apnea Sle ep Obstructive; in [facility], [address] Hypothyroidism On Replacement; [facility] [place]lipidemia; [address] [address] Impaired Fasting Glucose; [place], [place] [phone] Anxiety Genera lized Disorder; [address] (Fax) Gastroesophageal Reflux Dise ase; [phone] Cancer Skin Bas al Cell Personal History; High Risk Medic ation Social History Tobacco Use Types Packs/Day Years [...] er 09/12/2022 How often do you attend rastafarian or shinto services? Never 05/13/2019 Do you belong to any clubs or organizations such as rastafarian N o 09/12/2022 groups, unions, fraternal or [...] place to sleep or slept in a mcc (including now)? 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 - 03/23/2019 1:30 PM CDT SUBJECTIVE CHIEF COMPLAINT/REASON FOR VISIT 1. Annual physical exam 2. Review medical problems HISTORY OF PRESENT ILLNESS Emelyn Oliveros is a 63 y.o. female who presents to the clinic today for above complaints. We discussed adult health maintenance preventative services. She follows with ore fielder for annual gynecological examination. She sees dentist regularly. She goes to [facility]. She has history of basal cell skin cancer. She follows with Orthopedic for right shoulder pain secondary to arthritis and avascular necrosis of right humeral head. She was told that she is going to need shoulder surgery. Recently she was diagnosed with UTI caused by E coli. She was treated with Levaquin 500 mg daily for 7 days. She has obstructive sleep apnea. He saw dentist at [facility] on 05/12/2018 for ob structive sleep apnea management. She was advised to use oral appliance. She follows with Dr. Odette Gaytan for management of anxiety. She takes BuSpar. She takes Synthroid for hypothyroidism. She has gastroesophageal reflux disease. She takes ranitidine as needed. She does not take statin for hyperlipidemia. We review her immunization. She needs immunization for Prevnar 13 and Shingrix. She needs to check with insurance regarding coverage. She had screening mammogram on 11/03/2018. Bone density was done on 10/27/2015. She was advised to schedule DXA bone density. She has not scheduled yet. Colonoscopy was done on 08/22/2014. It was complicated with perforation. It was suggested to repeat in 10 years. I reviewed and updated medical record. Medication reconciliation was done. I answered all of their questions. Patient does not have additional questions, concerns, or complaints. MEDICATIONS Current Outpatient Prescriptions Medication Sig Dispense Refill ??? B complex-vitamins [...] daily for 7 days. 7 tablet 0 ??? miscellaneous medical supply misc autoSV, heated humidifier, mask, headgear, filters and tubing.Length of Need: 99 ??? PNV NO.95/FERROUS FUM/FOLIC AC ( MULTIVITAMINS ORAL) Take 1 tablet by mouth daily. ??? raNITIdine (ZANTAC MAXIMUM STRENGTH) 150 mg tablet Take by mouth. As needed ??? SYNTHROID 75 mcg tablet Take 1 tablet (75 mcg total) by mouth every morning before breakfast. 90tablet 1 No current facility-administered medications for this visit. [...] Complicated with perforation. Repeat in 10 years. [place], [place] ??? DILATATION AND CURETTAGE ??? ESOPHAGOGASTRODUODENOSCOPY 08/22/2014 ??? STRABISMUS SURGERY Bilateral 1985 ??? THYROIDECTOMY, PARTIAL Right 06/06/2015 Right thyroid lobectomy and isthmusectomy. ??? TONSILLECTOMY PREVENTIVE SERVICES Immunization History Administered Date(s) Administered ??? Influenza TIV (IM) 09/26/2007 ??? Influenza, Injectable, Quadrivalent 10/24/2014, 08/15/2015 ??? Influenza, Seasonal, Injectable 09/26/2007, 09/08/2010 ??? Influenza, Unspecified 09/26/2007, 09/08/2010, 10/24/2014, 08/15/2015, 10/22/2016 ??? Td (Adult), adsorbed 11/23/2000, 12/02/2006 ??? Td Preservative Free (TENIVAC, DECAVAC) 12/02/2006 ??? Tdap 06/22/2013 ??? influenza vaccine quad (FLUZONE/FLUARIX) (36 months and older)(PF) 10/24/2014, 10/22/2016, 10/24/2017 Health Maintenance Topic Date Due ??? Pneumococcal Highest Risk Adult 19-64 (1 of 3 - PCV13) 1975 ??? Influenza Vaccine (1) 06/14/2018 ??? Fasting Lipid Panel 01/30/2019 ??? Fasting Glucose for Diabetes Screening 01/30/2019 ??? Zoster Vaccines (1 of 2) 04/11/2020 (Originally 2006) ??? Depression Monitoring (PHQ-9) 07/17/2019 ??? TSH Level 08/11/2019 ??? Mammogram 11/03/2019 ??? Pap/HPV Screening 10/22/2021 ??? DTaP,Tdap,and Td Vaccines (2 - Td) 06/22/2023 ??? Colon Cancer Screening 08/22/2024 ??? Hepatitis C Screening Completed SOCIAL HISTORY Social History Social History ??? [...] Alcohol abuse Brother OBJECTIVE VITAL SIGNS Vitals: 03/23/19 1325 BP: 104/60 Patient Position: Sitting Pulse: 80 Resp: 16 Height: 170 cm Weight: 87.5 kg PHYSICAL EXAM General: Patient is sitting. No distress. Able to talk without interruption. Skin: No rash, bruise or nodules. Head: No facial rash, asymmetry or sinus tenderness. Eyes: PERRLA. EOMI. No pallor, icterus or conjunctivitis. ENT: No nasal congestion, discharge or bleeding. There is no ear infection or discharge. No mastoid tenderness. Tongue is moist and midline. No oral lesions. Lymph nodes: No cervical or supraclavicular lymphadenopathy. Thyroid: No thyromegaly. No thyroid thrill or bruit. Peripheral vessels: Good radial and pedal pulses. Heart: No carotid bruit. No JVD. Regular rhythm. There is no S3, gallop, murmur or thrill. Lungs: Normal respiratory effort. Clear to auscultation. Abdomen: Moves with respiration. Bowel sounds present. Soft. No rebound tenderness, guarding or rigidity. Spine: No spinous tenderness or mass. Joints: No joint swelling or deformity. No decreased range of motion. Extremities: No clubbing, cyanosis, edema, infection or calf tenderness. Gait: No abnormal gait. Mental: Alert and oriented x 3. Normal mood and affect. Neuro: Intact cranial nerves. Grossly nonfocal. ASSESSMENT / PLAN #1 Health Maintenance Examination Adult We discussed adult health maintenance preventive screening services. She needs to eat healthy diet and exercise regularly to maintain healthy body weight and BMI. Today Body mass index is 30.29 kg/m??.PADMINI-7 score is 0. Immunization record is up to date except for Shingrix and Prevnar 13. Advised her to check with insurance and Pharmacy regarding coverage for Shingrix. She does not want to get Prevnar 13 immunization today. Need to repeat screening mammogram on or after 11/04/2019. Need to repeat screening colonoscopy on or after 08/23/2020. Advised to see eye doctor once a year and dentist every six months. She will make an appointment to see ore fielder for annual gynecological examination. Sheshould have health maintenance exam every year. #2 Infection Urinary Tract Escherichia Coli She was treated with Levaquin. #3 Apnea Sleep Obstructive She needs to use oral appliance. She needs to follow with dentist from [facility]. She needs to lose weight. Today her Body mass index is 30.29 kg/m??. #4 Hypothyroidism On Replacement She is euthyroid clinically. She will continue current dose of Synthroid daily in the morning on empty stomach. Need to repeat TSH. #5 Hyperlipidemia She will continue low-cholesterol diet, low-fat diet and regular exercise. Need to repeat lipid profile. #6 Impaired Fasting Glucose There is no symptom and sign suggestive of diabetes mellitus. Today her Body mass index is 30.29 kg/m??. She will cut back calories, carbohydrates and portion of meals. She needs to do regular exerciseto maintain healthy body weight and body mass index. We need to repeat hemoglobin A1c. #7 Anxiety Generalized Disorder She will follow with Dr. Odette Gaytan. #8 Gastroesophageal Reflux Disease She does not have symptoms. She will continue anti-reflux measure and ranitidine as needed. 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 #10 Referral And Future Studies Advised her to come back in few days to do following test: BMP, CBC, hemoglobin A1c, hepatic function panel, lipid panel and TSH. #11 Follow-up Visit Return to the clinic in one year for annual physical exam, review medical problems and renew medication. documented in this encounter Plan of Treatment Upcoming Encounters Date Type Specialty Care Team Description 11/01/2022 Office Visit Urology Regina Black APRN, C.N.P. [address], [place] [phone] (Wo rk) documented as of this encounter Results S-TSH (Thyroid-Stimulating Hormone - Sensitive) (04/17/2019 9:27 AM CDT) athologist Signature TSH, Sensitive 1.9 0.3 - 4.2 04/17/2019 mIU/L 1:57 PM CDT Comment: Biotin has been identified by the barbi paredes as a potential interfering substance. ??Higher concentr ations of biotin may be found in multivitamins, hair/nail supple ments, and workout supplements. ??If the result does not ma [facility] clinical observations, repeat testing after patient refrains fr om the use of supplements for at least 12 hours. Specimen Anatomical Collection Method Collection Time Receive d Time (Source) Location / / Volume Laterality Blood (Blood, 04/17/2019 9:27 AM 04/17/20 19 1:04 Venous) CDT PM CDT Cindy Alarcon M.D. LAB BLOOD ADD-ON Performing Organization Address City/State/ZIP Code Phon e Number [facility] [address] [place] [address] LAB (ABNORMAL) Lipid Panel (04/17/2019 9:27 AM CDT) P athologist Signature Cholesterol, 207 (H) mg/dL 04/17/2019 Total 1:57 PM CDT Comment: ----REFERENCE VALUE---- Desirable: < 200 Borderline high: 200 - 239 High: > or = 240 Triglycerides 70 mg/dL 04/17/2019 1:57 PM CDT Comment: ----REFERENCE VALUE---- Normal: <150 Borderline high: 150-199 High: 200-499 Very high: > or =500 Cholesterol, HDL, S 68 >=50 mg/dL 04/17/2019 1:57 PM CDT Calculated LDL 125 mg/dL 04/17/2019 1:57 PM CDT Comment: ----REFERENCE VALUE---- Desirable: <100 Above Desirable: 100-129 Borderline high: 130-159 High: 160-189 Very high: > or =190 Cholesterol, Non-HDL, Calculated 139 mg/dL 019 1:57 PM CDT Comment: ----REFERENCE VALUE---- Desirable: <130 Above Desirable: 130-159 Borderline high: 160-189 High: 190-219 Very high: > or =220 Specimen Anatomical Collection Method Collection Time Receive d Time (Source) Location / / Volume Laterality Blood (Blood, 04/17/2019 9:27 AM 04/17/20 19 1:04 Venous) CDT PM CDT Cindy Alarcon M.D. LAB BLOOD ADD-ON Performing Organization Address City/[facility]/ZIP Code Phon e Number [facility] [address] [place] [id number] LAB Hemoglobin A1c (04/17/2019 9:27 AM CDT) P athologist Signature Hemoglobin A1c, 5.4 4.2 - 5.6 04/17/2019 B % 11:04 AM CDT Specimen Anatomical Collection Method Collection Time Receive d Time (Source) Location / / Volume Laterality Blood (Blood, 04/17/2019 9:27 AM 04/17/20 19 Venous) CDT 10:31 AM CDT Cindy Alarcon M.D. LAB BLOOD ADD-ON Performing Organization Address City/[facility] Phon e Number [facility] [address], [place] [address] LAB Hepatic Function Panel (04/17/2019 9:27 AM CDT) Patholo gist Method Time Signature Bilirubin, Total, S 0.5 <=1.2 04/17/2019 mg/dL 1:57 PM CDT Bilirubin, Direct, S <0.2 0.0 - 0.3 04/17/2019 mg/dL 3:36 PM CDT Aspartate 22 8 - 43 04/17/2019 Aminotransferase U/L 1:57 PM CDT (AST), S Alanine 29 7 - 45 04/17/2019 Aminotransferase U/L 1:57 PM CDT (ALT), S Alkaline 78 35 - 104 04/17/2019 Phosphatase, S U/L 1:57 PM CDT Albumin, S 4.3 3.5 - 5.0 04/17/2019 g/dL 1:57 PM CDT Protein, Total, S 6.7 6.3 - 7.9 04/17/2019 g/dL 1:57 PM CDT Specimen Anatomical Collection Method Collection Time Receive d Time (Source) Location / / Volume Laterality Blood (Blood, 04/17/2019 9:27 AM 04/17/20 19 1:04 Venous) CDT PM CDT Cindy Alarcon M.D. LAB BLOOD ADD-ON Performing Organization Address City/State/ZIP Code Phon e Number [facility] [address] [place] [id number] LAB Basic Metabolic Panel (04/17/2019 9:27 AM CDT) P athologist Signature Potassium, S 4.8 3.6 - 5.2 04/17/2019 mmol/L 1:57 PM CDT Sodium, S 138 135 - 145 04/17/2019 mmol/L 1:57 PM CDT Chloride, S 102 98 - 107 04/17/2019 mmol/L 1:57 PM CDT Bicarbonate, S 27 22 - 29 04/17/2019 mmol/L 1:57 PM CDT Anion Gap 9 7 - 15 04/17/2019 1:57 PM CDT BUN (Blood Urea 12 6 - 21 04/17/2019 Nitrogen), S mg/dL 1:57 PM CDT Creatinine 0.80 0.59 - 04/17/2019 1.04 mg/dL 1:57 PM CDT eGFR-Non 79 >=60 04/17/2019 Black/ mL/min/BSA 1:57 PM CDT Algerian Comment: ----ADDITIONAL INFORMATION---- Estimated GFR calculated using the 2009 CKD_EPI creatinine equation. eGFR-Black/ >90 >=60 mL/min/BSA 2018 1:57 PM CDT Comment: ----ADDITIONAL INFORMATION---- Estimated GFR calculated using the 2009 CKD_EPI creatinine equation. Calcium, Total, S 9.5 8.8 - 10.2 mg/dL 04/17/2019 1:57 PM CDT Glucose, S 91 70 - 140 mg/dL 04/17/2019 1:57 PM CDT Specimen Anatomical Collection Method Collection Time Receive d Time (Source) Location / / Volume Laterality Blood (Blood, 04/17/2019 9:27 AM 04/17/20 19 1:04 Venous) CDT PM CDT Cindy Alarcon M.D. LAB BLOOD ADD-ON Performing Organization Address City/State/ZIP Code Phon e Number [facility] [address] [place] [address] LAB CBC without Differential (04/17/2019 9:27 AM CDT) P athologist Signature Hemoglobin 14.2 11.6 - 04/17/2019 15.0 g/dL 9:34 AM CDT Hematocrit 43.2 35.5 - 04/17/2019 44.9 % 9:34 AM CDT Erythrocytes 4.63 3.92 - 04/17/2019 5.13 9:34 AM CDT x10(12)/L MCV 93.3 78.2 - 04/17/2019 97.9 fL 9:34 AM CDT RBC Distrib Width 12.5 12.2 - 04/17/2019 16.1 % 9:34 AM CDT Platelet Count 244 157 - 371 04/17/2019 x10(9)/L 9:34 AM CDT Leukocytes 6.9 3.4 - 9.6 04/17/2019 x10(9)/L 9:34 AM CDT Specimen Anatomical Collection Method Collection Time Receive d Time (Source) Location / / Volume Laterality Blood (Blood, 04/17/2019 9:27 AM 04/17/20 19 9:27 Venous) CDT AM CDT Cindy Alarcon M.D. LAB BLOOD ADD-ON Performing Organization Address City/State/ZIP Code Phon e Number [facility] [address] [place] [address] LAB documented in this encounter Visit Diagnoses Diagnosis Health Maintenance Examination Adult - P rimary Infection Urinary Tract Escherichia Coli Apnea Sleep Obstructive Hypothyroidism On Replacement Hyperlipidemia Impaired Fasting Glucose Anxiety Generalized Disorder Gastroesophageal Reflux Disease Cancer Skin Basal Cell Personal History High Risk Medication documented in this encounter Additional Health Concerns Assessment Noted Time PHQ-9 Depression Total Score: 2 03/16/2019 3:22 PM CDT documented as of this encounter Care Teams Ultrasound Spec Relationship Specialty Start Date End Date Cindy Alarcon M.D. PCP - General 04/28/17 08/14/20 documented as of this encounter
--- OUTSIDE RECORDS SUMMARY | 2022-09-22 13:34 | XMS_ITS | Encounter Summary ---
:1955 Author Organization [facility] Address [address] [place] [address] Care Team Providers Name Role Phone Cindy Alarcon M.D. Primary Care Provider Encounter Details Date Type Department Care Team Description 08/11/2018 Hospital Encounter Department of Cindy Alarcon Hypothyr oidism On Laboratory [facility] in [address] [place] [address] Mónica Leon, [facility] [address] [address] [place], [place] [phone] [address] (Fax) [phone] Social History Tobacco Use Types Packs/Day Years [...] How often do you attend restoration or shinto services? 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 Length of Need: 99 PNV NO.95/FERROUS Take 1 tablet by 0 10/22/2016 FUM/FOLIC AC ( mouth daily. MULTIVITAMINS ORAL) busPIRone (for_BUSPAR) 10 Take 10 mg by mouth 0 11/12/2020 mg tablet 3 (three) times a day. DOCOSAHEXANOIC ACID/EPA Take 1 capsule by 0 11/12/2020 (FISH OIL ORAL) mouth daily. raNITIdine (ZANTAC Take by mouth. As 0 11/12/2020 MAXIMUM STRENGTH) 150 mg needed tablet SYNTHROID 75 mcg tablet Take 1 tablet (75 90 tablet 3 01/2011/28/2018 mcg total) by mouth every morning before breakfast. Brand Name. documented as of this encounter Plan of Treatment Upcoming Encounters Date Type Specialty Care Team Description 11/01/2022 Office Visit Urology Regina Black APRN, C.N.P. [address] [place] [phone] (Wo rk) documented as of this encounter Procedures Procedure Name Priority Date/Time Associated Diagnosis Comme nts THYROID-STIMULATIN Routine 08/11/2018 7:49 AM Hypothyroidism O n Results for this G CDT Replacement procedure are i n HORMONE-SENSITIVE the result s (S-TSH) section. documented in this encounter Results S-TSH (Thyroid-Stimulating Hormone - Sensitive) (08/11/2018 7:49 AM CDT) P athologist Signature TSH, Sensitive 2.4 0.3 - 4.2 08/11/[address] [facility] mIU/L 12:45 PM CDT [facility] LAB Comment: Biotin has been identified by the barbi paredes as a potential interfering substance. ??Higher concentr ations of biotin may be found in multivitamins, hair/nail supple ments, and workout supplements. ??If the result does not ma tch clinical observations, repeat testing after patient refrains fr om the use of supplements for at least 12 hours. Specimen Anatomical Collection Method Collection Time Receive d Time (Source) Location / / Volume Laterality Blood (Blood, 08/11/2018 7:49 AM 08/11/20 18 Venous) CDT 12:08 PM CDT Cindy Alarcon M.D. LAB BLOOD ADD-ON Performing Organization Address City/State/ZIP Code Phon e Number [facility] [address] [place] [address] LAB documented in this encounter Visit Diagnoses Diagnosis Hypothyroidism On Replacement documented in this encounter Care Teams Bingo Usher Relationship Specialty Start Date End Date Cindy Alarcon M.D. PCP - General 04/28/17 08/14/20 documented as of this encounter
--- OUTSIDE RECORDS SUMMARY | 2022-09-22 13:34 | XMS_ITS | Encounter Summary ---
:1955 Author Organization [facility] Address [address] [place] [id number] Care Team Providers Name Role Phone Cindy Alarcon M.D. Primary Care Provider Reason for Referral Outpatient (Routine) - Closed Specialty Diagnoses / Procedures Referred By Contact Refer alberto To Contact General Surgery Diagnoses Bleeding Rectal Hemorrhoids Internal Cindy Alarcon M.D. [facility] Region [address], [address] [place] [address] Referral ID Status Reason Start Date Expiration Date Visits V isits Requested Authorized [id number] Closed Specialty 06/22/2018 06/22/2019 1 1 Services Required Scheduling Instructions Please make an appointment to see one of the surgeons either in [place] or [place] Reason for Visit Reason Comments Rectal Bleeding Rectal bleeding for 1 week- started with small amount and has progressively worsenend Appointment Request (Routine) - Closed Specialty Diagnoses / Procedures Referred By Contact Refer red To Contact Family Medicine Referral ID Status Reason Start Date Expiration Date Visits Requ ested Visits Authorized [id number] Closed 06/22/2018 06/22/2019 1 Encounter Details Date Type Department Care Team Description 06/22/2018 Office Visit Department of Cindy Alarcon M.D . Bleeding Rectal (Primary Dx); [facility] [address], Hem orrhoids Internal; Medicine in [facility] 204 Angiodysplasia Colon; [facility] [place] On Replacemen t; [address] [address] [place] [phone] Social History Tobacco Use Types Packs/Day [...] er 09/12/2022 How often do you attend lutheran or episcopal services? Never 05/13/2019 Do you belong to any clubs or organizations such as lutheran N o 09/12/2022 groups, unions, fraternal or [...] place to sleep or slept in a nursing home (including now)? 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 - 06/22/2018 3:45 PM CDT SUBJECTIVE CHIEF COMPLAINT/REASON FOR VISIT Rectal bleeding. HISTORY OF PRESENT ILLNESS Emelyn Oliveros is a 62 y.o. female who presents to the clinic today for rectal bleeding. One week ago, she passed gas and had diarrhea. She noticed slight spotting after that episode and now needs to wear a pad because the rectal bleeding has worsened. It is fresh bright red blood. She denies constipation. She has changed from toilet paper to wet wipes. She tried preparation H without relief. She hasn't started taking Sitz baths yet. She denies chest pain, shortness of breath, or lightheadedness. She has history of diverticulosis, hemorrhoids, and angiectasias. Her last colonoscopy was done on 08/22/2014, complicated by contained cecal perforation. It was recommended to repeat in 10 years. There are no additional questions, concerns, or complaints. CURRENT MEDICATIONS Current Outpatient Prescriptions Medication Sig Dispense [...] SULFA DRUGS ??? Tape [Adhesive Tape-Silicones] Rash REVIEW OF SYSTEMS Please see HPI for pertinent positives, otherwise rest of ROS negative. MEDICAL HISTORY Past Medical History: Diagnosis [...] Complicated with perforation. Repeat in 10 years. [place], [place] ??? DILATATION AND CURETTAGE ??? ESOPHAGOGASTRODUODENOSCOPY [...] ??? None Social History Narrative ??? None FAMILY HISTORY Family History Problem Relation Age of Onset ??? Heart attack Father ??? Coronary artery disease Father ??? Stroke Father ??? Alcohol user Father ??? Bladder cancer Brother ??? Emphysema Mother ??? Hypertension Mother ??? Gluten sensitivity Sister ??? Diabetes Maternal Grandmother ??? Heart disease Brother ??? Alcohol abuse Brother OBJECTIVE VITAL SIGNS Vitals: 06/22/18 1533 BP: 117/70 Patient Position: Sitting Pulse: 77 Resp: 16 Height: 169.6 cm Weight: 83.4 kg PHYSICAL EXAMINATION General: Patient is sitting. No distress. Able to talk without interruption. Head: No facial rash, asymmetry or sinus tenderness. Eyes: PERRLA. EOMI. No pallor, icterus or conjunctivitis. ENT: No nasal congestion, discharge or bleeding. There is no ear infection or discharge. No mastoid tenderness. Tongue is moist and midline. No oral lesions. Lymph nodes: No cervical or supraclavicular lymphadenopathy. Thyroid: No thyromegaly. No thyroid thrill or bruit. Peripheral vessels: Good radial pulses. Heart: No carotid bruit. No JVD. Regular rhythm. There is no S3, gallop, murmur or thrill. Lungs: Normal respiratory effort. Clear to auscultation. Normal percussion. Abdomen: Moves with respiration. Bowel sounds present. Soft. No rebound tenderness, guarding or rigidity. No organomegaly. Rectum: There is an external hemorrhoid with skin tag that has thrombosed with blood clot. Spine: No scoliosis or kyphosis. No spinous tenderness or mass. Extremities: No clubbing, cyanosis, edema, infection or calf tenderness. Mental: Alert and oriented x 3. Normal mood and affect. Neuro: Grossly nonfocal. ASSESSMENT / PLAN #1 Bleeding Rectal #2 Hemorrhoids Internal #3 Angiodysplasia Colon PLAN: We discussed possible etiologies and further evaluation and management. It is most likely due to external hemorrhoid. Refer her to General Surgeon department in [facility] for consultation. She was advised to drink plenty of water and high fiber diet to avoid constipation. She can continue preparation H, sitz baths, and wet wipes. She should contact me if there is no improvement or worsening of symptoms. #4 Hypothyroidism On Replacement PLAN: She is euthyroid clinically. Patient was advised to continue current dose of brand Synthroid daily in the morning on empty stomach. Need to check TSH again in July 2018. #5 Apnea Sleep Obstructive PLAN: She was advised to use oral appliance regularly. #6 Today Studies PLAN: Patient had following studies done today: CBC. Patient will be notified with results & recommendations. #7 Followup Visit PLAN: Return to the clinic as previously scheduled. This document serves as a record of services personally performed by Dr. Cindy Alarcon. It was created on their behalf by Denny Newman, a trained medical records custodian. The creation of this record is based on the scribe's personal observations and the provider's statements to them. This document has been checked and approved by the attending provider. Cindy Alarcon M.D. - 06/22/2018 3:45 PM CDT Please call her. There is no evidence of anemia. Margarita Manuel L.P.N. - 06/22/2018 3:45 PM CDT Patient informed of results and verbalized understanding. documented in this encounter Plan of Treatment Upcoming Encounters Date Type Specialty Care Team Description 11/01/2022 Office Visit Urology Regina Black APRN C.N.P. [address] [phone] (Wo rk) Scheduled Referrals Name Type Priority Associated Diagnoses Order S chedule General Surgery - Outpatient Referral Routine Bleeding R ectal Expected: General consult Hemorrhoids Internal 07/2018 (clinic) (Approximate), Expires: 06/22/2021 documented as of this encounter Procedures Procedure Name Priority Date/Time Associated Diagnosis Comme nts CBC WITHOUT Routine 06/22/2018 4:13 PM Bleeding Rect al Results for this DIFFERENTIAL, B CDT Hemorrhoids Internal proc edure are in the results section. documented in this encounter Results S-TSH (Thyroid-Stimulating Hormone - Sensitive) (08/11/2018 7:49 AM CDT) P athologist Signature TSH, Sensitive 2.4 0.3 - 4.2 08/11/2018 [facility] mIU/L 12:45 PM CDT [facility] Comment: Biotin has been identified by the barbi paredes as a potential interfering substance. ??Higher concentr ations of biotin may be found in multivitamins, hair/nail supple ments, and workout supplements. ??If the result does not [facility] clinical observations, repeat testing after patient refrains fr om the use of supplements for at least 12 hours. Specimen Anatomical Collection Method Collection Time Receive d Time (Source) Location / / Volume Laterality Blood (Blood, 08/11/2018 7:49 AM 08/11/20 18 Venous) CDT 12:08 PM CDT Cindy Alarcon M.D. LAB BLOOD ADD-ON Performing Organization Address City/State/ZIP Code Phon e Number [facility] [address] [facility] [place] [id number] LAB CBC without Differential (06/22/2018 4:13 PM CDT) P athologist Signature Hemoglobin 14.6 11.6 - 06/22/2018 [facility] 15.0 g/dL 4:45 PM CDT [facility] Hematocrit 42.7 35.5 - 06/22/2018 [facility] 44.9 % 4:45 PM CDT [facility] Erythrocytes 4.55 3.92 - 06/22/2018 [facility] 5.13 4:45 PM CDT HEALTH x10(12)/L [facility] MCV 93.8 78.2 - 06/22/2018 [facility] 97.9 fL 4:45 PM CDT [facility] RBC Distrib Width 12.5 12.2 - 06/22/2018 [facility] 16.1 % 4:45 PM CDT [facility] Platelet Count 288 157 - 371 06/22/2018 [facility] x10(9)/L 4:45 PM CDT [facility] Leukocytes 8.9 3.4 - 9.6 06/22/2018 [facility] x10(9)/L 4:45 PM CDT [facility] Specimen Anatomical Collection Method Collection Time Receive d Time (Source) Location / / Volume Laterality Blood (Blood, 06/22/2018 4:13 PM 06/22/20 18 4:13 Venous) CDT PM CDT Cindy Alarcon M.D. LAB BLOOD ADD-ON Performing Organization Address City/State/ZIP Code Phon e Number [facility] [address] [place] [address] [facility] [address] [facility] [place] [address], [facility] documented in this encounter Visit Diagnoses Diagnosis Bleeding Rectal - Primary Hemorrhoids Internal Angiodysplasia Colon Hypothyroidism On Replacement Apnea Sleep Obstructive documented in this encounter Care Teams Pastoral Ministries Professor Relationship Specialty Start Date End Date Cindy Alarcon M.D. PCP - General 04/28/17 08/14/20 documented as of this encounter
--- OUTSIDE RECORDS SUMMARY | 2022-09-22 13:34 | XMS_ITS | Encounter Summary ---
:1955 Author Organization [facility] Address [address] [place] [address] Care Team Providers Name Role Phone Cindy Alarcon M.D. Primary Care Provider Encounter Details Date Type Department Care Team Description 11/03/2018 Hospital Encounter Department of Cindy Alarcon M.D. Screening Mammogram Radiology in [address] [place] [address] [facility] [address], [address] [place], [place] [address] [facility] [address] [address] [place], [place] [phone] [address] (Fax) [phone] Social History Tobacco Use Types Packs/Day Years [...] er 09/12/2022 How often do you attend tenriism or muslim services? Never 05/13/2019 Do you belong to any clubs or organizations such as tenriism N o 09/12/2022 groups, unions, fraternal or [...] place to sleep or slept in a half-way (including now)? Sex Assigned at Date Recorded Female 11/29/2017 6:36 PM CLOTH BURLER documented as of this encounter Medications at [...] Visit Urology Regina Black APRN, C.N.P. [address] [place] [phone] (Wo rk) documented as of this encounter Procedures Procedure Name Priority Date/Time Associated Comments Diagnosis BI BREAST RAD - Routine 11/03/2018 9:06 Screening Results for this SCREENING (most inpatients AM CLOTH BURLER Mammogram Average proced ure are in BILATERAL and all Risk Patient the results outpatients) section. documented in this encounter Results BI Breast Screening Bilateral (11/03/2018 9:06 AM CLOTH BURLER) Anatomical Region Laterality Modality Breast, Breast Imaging RST LOS, Breast Imaging ARZ LOS, [place] [address] Bilateral Mammography Imaging FLA LOS Specimen (Source) Anatomical Collection Method Collection Time Re ceived Time Location / / Volume Laterality 11/03/2018 12:20 PM CLOTH BURLER Impressions 11/03/2018 12:22 PM CLOTH BURLER IMPRESSION: ??Negative. RECOMMENDATION: ??Annual Screening Mammo gram ASSESSMENT: ??BI-RADS: 1: Negative. Narrative 11/03/2018 12:22 PM CLOTH BURLER EXAM: ??BI BREAST SCREENING BILATERAL Current study was evaluated with a Compu ter Aided Detection (CAD) system. INDICATION: ??Screening mammogram. COMPARISON: ??Prior exam(s) were availab le and reviewed for comparison. DENSITY: ??b. There are scattered areas of fibroglandular density. FINDINGS: ??No mammographic findings of malignancy. Procedure Note Vanita Christianson M.D. - 11/03/2018Forma tting of this note might be different from the original. EXAM: BI BREAST SCREENING BILATERAL Current study was evaluated with a Compu ter Aided Detection (CAD) system. INDICATION: Screening mammogram. COMPARISON: Prior exam(s) were available and reviewed for comparison. DENSITY: b. There are scattered areas of fibroglandular density. FINDINGS: No mammographic findings of ma lignancy. IMPRESSION: Negative. RECOMMENDATION: Annual Screening Mammogr am ASSESSMENT: BI-RADS: 1: Negative. Cindy Alarcon M.D. IMG BI PROCEDURES documented in this encounter Visit Diagnoses Diagnosis Screening Mammogram Average Risk Patient documented in this encounter Care Teams Regional Wildlife Agent Relationship Specialty Start Date End Date Cindy Alarcon M.D. PCP - General 04/28/17 08/14/20 documented as of this encounter
--- OUTSIDE RECORDS SUMMARY | 2022-09-22 13:34 | XMS_ITS | Encounter Summary ---
:1955 Author Organization [facility] Address [address] [place] [address] Care Team Providers Name Role Phone Cindy Alarcon M.D. Primary Care Provider Reason for Visit Reason Comments Other STD check Encounter Details Date Type Department Care Team Description 02/21/2018 Office Visit Department of [facility] Zak Barbosa Screen ing For Venereal MedicineCarolyn M.D. Disease (Primary Dx) Clinic, in [place], [address] [place] [address] [place], [place] [phone] [address] (Work) [phone] Social History Tobacco Use Types Packs/Day Years [...] er 09/12/2022 How often do you attend worship or temple services? Never 05/13/2019 Do you belong to any clubs or organizations such as worship N o 09/12/2022 groups, unions, fraternal or [...] place to sleep or slept in a correction (including now)? 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 - 02/21/2018 8:30 AM CDT 1. Screening For Venereal Disease - Chlamydia / gonorrhoeae Amplified RNA Urine, First Voided - HIV-1/-2 Ag and Ab Screen - Syphilis IgG Antibody with Reflex - HCV Ab Scrn w/Reflex to HCV PCR documented in this encounter Progress Notes Zak Barbosa M.D. - 02/21/2018 8:30 AM CDT [facility] IN [place] Chief Complaint Chief Complaint Patient presents with ??? Other STD check HPI HPI STD testing: Patient would like to tested for STD. Patient started new relationship with a new partner couple week. Patient was in relationship with ex-partner for 20 years and does not trust ex-partner. Denies any vaginal symptoms. The following portions of the patient's history were reviewed and updated as appropriate in the EMR:allergies, current medications and problem list on 02/21/18 REVIEW OF SYSTEMS Negative review of major organ systems apart from that noted in the HPI PHSYCIAL EXAM Resp Rate: 16 Blood Pressure: 112/70 Weight: 87.7 kg Constitutional: She is oriented to person, place, and time. She appears well- developed and well-nourished. No distress. HENT: Head: Normocephalic and atraumatic. Cardiovascular: Normal rate, regular rhythm and normal heart sounds. No murmur heard. Pulmonary/Chest: Effort normal and breath sounds normal. No respiratory distress. She has no wheezes. She has no rales. Neurological: She is alert and oriented to person, place, and time. LABS/IMAGING No results found for this or any previous visit (from the past 24 hour(s)). ASSESSMENT AND PLAN Patient Instructions 1. Screening For Venereal Disease - Chlamydia / gonorrhoeae Amplified RNA Urine, First Voided - HIV-1/-2 Ag and Ab Screen - Syphilis IgG Antibody with Reflex - HCV Ab Scrn w/Reflex to HCV PCR Options for treatment and follow-up care were reviewed with the patient . Emelyn Valentin [place] and/or guardian engaged in the decision making process and verbalized understanding of the options discussedand agreed with the final plan. Zak Barbosa M.D. documented in this encounter Plan of Treatment Upcoming Encounters Date Type Specialty Care Team Description 11/01/2022 Office Visit Urology Regina Black, DIANN, C.N.P. [address] [place] [phone] (Wo rk) documented as of this encounter Procedures Procedure Name Priority Date/Time Associated Diagnosis Comme nts SYPHILIS TOTAL AB Routine 02/21/2018 8:49 AM Screening For Res ults for this W/ REFLEX S CDT Venereal Disease procedure a re in the results section. HIV-1/-2 AG AND AB Routine 02/21/2018 8:49 AM Screening For Re sults for this SCREEN CDT Venereal Disease procedure a re in the results section. HCV AB SCRN Routine 02/21/2018 8:49 AM Screening For Results for this W/REFLEX TO HCV CDT Venereal Disease procedur e are in PCR, S the results section. CHLAMYDIA/GONORRHOE Routine 02/21/2018 8:46 AM Screening For R esults for this AE AMPLIFIED RNA CDT Venereal Disease procedu re are in the results section. documented in this encounter Results HCV Ab Scrn w/Reflex to HCV PCR (02/21/2018 8:49 AM CDT) P athologist Signature HCV Ab Screen, Negative Negative 02/22/2018 [facility] S 8:29 AM CDT [facility] Comment: Rrmnhm-mn-urrupy ratio is <1.00 . Specimen Anatomical Collection Method Collection Time Receive d Time (Source) Location / / Volume Laterality Blood (Blood, 02/21/2018 8:49 AM 02/23/20 18 6:39 Venous) CDT AM CDT Zak Barbosa M.D. LAB MICROBIOLOGY - BLOOD ORD ERABLES Performing Organization Address City/State/ZIP Code Phon e Number [facility] [address] [place], [place] [address] Syphilis IgG Antibody with Reflex (02/21/2018 8:49 AM CDT) athologist Signature Syphilis IgG Negative Negative 02/22/2018 [facility] Ab, S 9:56 AM CDT [facility] Comment: No serologic evidence of exposu re to syphilis. Specimen Anatomical Collection Method Collection Time Receive d Time (Source) Location / / Volume Laterality Blood (Blood, 02/21/2018 8:49 AM 02/22/20 18 6:24 Venous) CDT PM CDT Zak Barbosa M.D. LAB BLOOD ADD-ON Performing Organization Address City/State/ZIP Code Phon e Number [facility] [address] [place] [phone] [facility] LAB HIV-1/-2 Ag and Ab Screen (02/21/2018 8:49 AM CDT) Analysis Performed At Patho logist Time Signature HIV-1/-2 Ag Non-Reacti Non-Reacti 02/22/2018 [facility] and Ab Screen, ve ve 10:44 AM CDT [facility] HIV-1 Ab, S Non-Reacti Non-Reacti 02/22/2018 [facility] ve ve 10:44 AM [facility] LAB HIV-1 Ag, S Non-Reacti Non-Reacti 02/22/2018 [facility] ve ve 10:44 AM [facility] LAB HIV-2 Ab, S Non-Reacti Non-Reacti 02/22/2018 [facility] ve ve 10:44 AM T [facility] Specimen Anatomical Collection Method Collection Time Receive d Time (Source) Location / / Volume Laterality Blood (Blood, 02/21/2018 8:49 AM 02/22/20 18 6:24 Venous) CDT PM CDT Zak Barbosa M.D. LAB MICROBIOLOGY - BLOOD ORD ERABLES Performing Organization Address City/State/ZIP Code Phon e Number [facility]- [address] [place] [phone] [place] [facility] Chlamydia / gonorrhoeae Amplified RNA Urine, First Voided (02/21/2018 8:46 AM CDT) [facility] Method Time Signature Source URINE, FIRST 02/21/2018 [facility] VOID 6:30 PM T [facility] Chlamydia Negative Negative 02/21/2018 [facility] trachomatis 6:30 PM T [facility] RNA [facility] Comment: ----ADDITIONAL INFORMATION---- This report is intended for use in clini sathish monitoring and management of patients. It is not in tended for use in medical-legal applications. Source URINE, FIRST VOID 02/21/2018 6:30 PM [facility] CDT [facility] Neisseria Negative Negative 02/21/2018 6:30 PM [facility] gonorrhoeae T [facility]- amplified RNA [facility] Comment: ----ADDITIONAL INFORMATION---- This report is intended for use in clini sathish monitoring and management of patients. It is not in tended for use in medical-legal applications. Specimen Anatomical Collection Method Collection Time Receive d Time (Source) Location / / Volume Laterality Varies (Urine, 02/21/2018 8:46 AM 018 1:39 First Voided) CDT PM CDT Zak Barbosa M.D. LAB MICROBIOLOGY - GENERAL O DANIEL Performing Organization Address City/State/ZIP Code Phon e Number [phone] [place] [address] LAB documented in this encounter Visit Diagnoses Diagnosis Screening For Venereal Disease - Primary documented in this encounter Care Teams Sheeting Puller Relationship Specialty Start Date End Date Cindy Alarcon M.D. PCP - General 04/28/17 08/14/20 documented as of this encounter
--- OUTSIDE RECORDS SUMMARY | 2022-09-22 13:34 | XMS_ITS | Encounter Summary ---
:1955 Author Organization [facility] Address [address] [place] [address] Care Team Providers Name Role Phone Cindy Alarcon M.D. Primary Care Provider Reason for Referral Outpatient (Routine) - Closed Specialty Diagnoses / Procedures Referred By Contact Refer red To Contact Sleep Trey Grullon III, [place] M.D. [address] [place], [place] [address] Referral ID Status Reason Start Date Expiration Date Visits Requ ested Visits Authorized [id number] Closed 03/31/2018 09/27/2018 1 1 Scheduling Instructions Post-study return visit Outpatient (Routine) - Closed Specialty Diagnoses / Procedures Referred By Contact Refer alberto To Contact Dentistry / Dental Diagnoses Apnea Sleep Obstructive Trey Ac III, M.D. [address] [place] [address] Referral ID Status Reason Start Date Expiration Date Visits Requ ested Visits Authorized [id number] Closed 03/31/2018 09/27/2018 1 1 Reason for Visit Outpatient (Routine) - Closed Specialty Diagnoses / Procedures Referred By Contact Refer red To Contact Sleep Trey Grullon III, [place] M.D. [address] [place] [address] Referral ID Status Reason Start Date Expiration Date Visits Requ ested Visits Authorized [id number] Closed 03/02/2018 08/29/2018 1 1 Encounter Details Date Type Department Care Team Description 03/31/2018 Office Visit [facility] [place], Apnea Sleep Medicine in Trey W III, Obstructive ( Primary [place], [place] M.D. Dx) 200 [facility] 200 [place] [phone] Social History Tobacco Use Types Packs/Day Years [...] er 09/12/2022 How often do you attend bahai or pentecostal services? 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 - 03/31/2018 3:30 PM CDT SUBJECTIVE Ms. Oliveros is a 62 y.o. year-old female who returns for PAP follow-up. History was obtained from thepatient. Ms. Oliveros reports PAP-related improvements in: sleep quality, samaritan by sleep, daytime alertness, sleepiness, fatigue and energy Ms. Oliveros complains of the following with PAP: None except that she is not quite sleeping as long as she hope she will. Ms. Oliveros denies the following with PAP: excessive pressure, difficulty exhaling, choking, gasping,interface leak, mouth leak and nasal dryness [place] Total score: 4 Additional history: She tells me that she has had a significant change in her personal life that hasimproved many things, and that now she is adapting to sleeping with a bed partner but that is going well. Current sleep schedule is: She says she has gradually been getting more and more sleep and feels as if she can expect that to continue. OBJECTIVE PHYSICAL EXAM Not applicable ASSESSMENT / PLAN #1 Obstructive sleep apnea Download from her BiPAP auto SV from December 30, 2017 through March 30, 2018 indicates she has used it all but 1 night with a 95/6% use more than 4 hr. Average EPAP is 6.2 cm average pressure support 0.7 cm 90% of the time device CPAP pressure was 6.5 cm eyes for the time pressure support was 1.1 cm average breath her minute 15.1 breath permanent average time large leak per day 0. This was based on the auto Pap setting of mm pressure of 6 cm and maximum pressure of 10 cm. With her clinical report and this finding my opinion is she is having an excellent result and continue treatment as at present is indicated. I told her I would like to see her at least once a year for followup, but she should contact us sooner if problems emerge. She also expressed interest in a mandibular repositioning appliance, so I made an appointment for her with Dental Specialties, including a return with a WatchPat study once they have completed their work. I answered all of her questions. PATIENT EDUCATION Ready to learn, no apparent learning barriers were identified; learning preferences include listening. Explained diagnosis and treatment plan; patient expressed understanding of the content. Trey Ac M.D. documented in this encounter Plan of Treatment Upcoming Encounters Date Type Specialty Care Team Description 11/01/2022 Office Visit Urology Regina Black, DIANN, C.N.P. [address] [phone] (Wo rk) Scheduled Referrals Name Type Priority Associated Diagnoses [facility] - Outpatient Referral Routine Apnea Sleep Expected: Sleep medicine Obstructive 03/31/2018 consult (clinic) (Approximat e), Expires: 03/31/2021 Sleep Medicine Outpatient Referral Routine Expect ed: return visit 03/31/2018 (clinic) - (Approximate), Post-study return Expires: visit 03/31/2021 documented as of this encounter Visit Diagnoses Diagnosis Apnea Sleep Obstructive - Primary documented in this encounter Care Teams Pure Pak Machine Operator Relationship Specialty Start Date End Date Cindy Alarcon M.D. PCP - General 04/28/17 08/14/20 documented as of this encounter
--- OUTSIDE RECORDS SUMMARY | 2022-09-22 13:34 | XMS_ITS | Encounter Summary ---
:[address] [facility] Address [address] [place] [address] Care Team Providers Name Role Phone Cindy Alarcon M.D. Primary Care Provider Encounter Details Date Type Department Care Team Description 09/14/2018 Orders Only Department of Cindy Alarcon M.D . Screening Mammogram Community Internal [address] Sales rage Risk Patient Medicine in [place] [address] (Primary Dx) [place] [address] [address] [facility] [place] [address] Social History Tobacco Use Types [...] How often do you attend evangelical or christian services? Never 05/13/2019 Do you belong to [...] or slept in a halfway (including now)? 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 [address], [place] [phone] (Wo rk) documented as of this encounter Results BI Breast Screening Bilateral (11/03/2018 9:06 AM BUSINESS ANALYST INTERN) Anatomical Region Laterality Modality Breast, Breast Imaging RST LOS, Breast Imaging ARZ LOS, Rajwinder st Bilateral Mammography Imaging FLA LOS Specimen (Source) Anatomical Collection Method Collection Time Re ceived Time Location / / Volume Laterality 11/03/2018 12:20 PM BUSINESS ANALYST INTERN Impressions 11/03/2018 12:22 PM BUSINESS ANALYST INTERN IMPRESSION: ??Negative. RECOMMENDATION: ??Annual Screening Mammo gram ASSESSMENT: ??BI-RADS: 1: Negative. Narrative 11/03/2018 12:22 PM BUSINESS ANALYST INTERN EXAM: ??BI BREAST SCREENING BILATERAL Current study was evaluated with a [employer] Aided Detection (CAD) system. INDICATION: ??Screening mammogram. COMPARISON: ??Prior exam(s) were availab le and reviewed for comparison. DENSITY: ??b. There are scattered areas of fibroglandular density. FINDINGS: ??No mammographic findings of malignancy. Procedure Note Vanita Christianson M.D. - 11/03/2018Forma tting of this note might be different from the original. EXAM: BI BREAST SCREENING BILATERAL Current study was evaluated with a [employer] Aided Detection (CAD) system. INDICATION: Screening mammogram. COMPARISON: Prior exam(s) were available and reviewed for comparison. DENSITY: b. There are scattered areas of fibroglandular density. FINDINGS: No mammographic findings of ma lignancy. IMPRESSION: Negative. RECOMMENDATION: Annual Screening Mammogr am ASSESSMENT: BI-RADS: 1: Negative. Cindy Alarcon M.D. IMG BI PROCEDURES documented in this encounter Visit Diagnoses Diagnosis Screening Mammogram Average Risk Patient - Primary Screening Mammogram Average Risk Patient documented in this encounter Care Teams Hand Salter Relationship Specialty Start Date End Date Cindy Alarcon M.D. PCP - General 04/28/17 08/14/20 documented as of this encounter
--- OUTSIDE RECORDS SUMMARY | 2022-09-22 13:34 | XMS_ITS | Encounter Summary ---
:1955 Author Organization [facility] Address [address] [place] [address] Care Team Providers Name Role Phone Cindy Alarcon M.D. Primary Care Provider Reason for Visit Reason Comments Gynecologic Exam annual exam Appointment Request (Routine) - Closed Specialty Diagnoses / Procedures Referred By Contact Refer red To Contact Gynecology Referral ID Status Reason Start Date Expiration Date Visits Requ ested Visits Authorized [id number] Closed 03/23/2019 03/22/2020 1 Encounter Details Date Type Department Care Team Description 04/17/2019 Office Visit Department of Valeria, Gynecological Examination Normal (Primary Dx); Obstetrics and Pepper Garcia Allergy Drug Personal History; Gynecology in [address] Pap Smear Examination; [place], [place] Pruritus Vulva [address] [facility] [address] [place], [place] [phone] [address] (Work) [phone] Social History Tobacco Use Types Packs/Day Years [...] er 09/12/2022 How often do you attend jewish or taoist services? Never 05/13/2019 Do you belong to any clubs or organizations such as jewish N o 09/12/2022 groups, unions, fraternal or [...] to sleep or slept in a senior living (including now)? 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 - 04/17/2019 10:30 AM CDT ANNUAL DOCTOR OF NAPRAPATHIC MEDICINE EXAM REASON FOR VISIT Annual DOCTOR OF NAPRAPATHIC MEDICINE exam HISTORY OF PRESENT ILLNESS 63 y.o. female who presents for annual DOCTOR OF NAPRAPATHIC MEDICINE exam today and has concerns about ovarian cancer.One of her friends had this. She has had some low back pain, and she reports some weight gain aroundthe middle. She is borderline as far as needing to increase her pants size. However, she also reports that she has been going out to eat and not really watching her diet. So, that could be the cause ofher weight gain. The back pain is in the tailbone area and upward. It is in the midline. She was doing better when she was doing her PT exercises. When she stopped the exercises, the pain developed. She wonders whether these could be due to ovarian cancer. Following her exam, she reported occasional vu lvar itching. Current Outpatient Medications on File Prior to [...] every morning before breakfast. 90tablet 1 ??? DOCOSAHEXANOIC ACID/EPA (FISH OIL ORAL) Take 1 capsule by mouth daily. ??? levoFLOXacin (LEVAQUIN) 250 mg tablet Take 1 tablet (250 mg total) by mouth daily for 7 days. 7 tablet 0 No current facility-administered medications on file prior to visit. Allergies Allergen Reactions ??? Amoxicillin Hives and [...] ??? Tape [Adhesive Tape-Silicones] Rash REVIEW OF SYSTEMS: General: No fever, chills, unintentional or weight loss, + fatigue and weight gain HEENT: No sore throat, nasal congestion, changes in vision or changes in hearing Cardiovascular: No chest pain or racing heart, + irregular heartbeat - related to antibiotic for UTI Respiratory: No shortness of breath, cough, or wheezing Gastrointestinal: No nausea, vomiting, and constipation, + diarrhea and abdominal pain - related to antibiotic use for UTI Genitourinary: No leaking urine, pain with urination, burning with urination, irregular vaginal bleeding, heavy periods, painful periods, abnormal vaginal discharge or leaking gas or stool Skin: No rashes, + skin lesions Breasts: No masses or lumps, or discharge from the nipples Neuro: No difficulty with memory, numbness, tingling, or falls Psych: + anxiety, No depression or difficulty sleeping Endocrine: No excessive thirst, hair loss, intolerance of heat or cold Past Medical History: Diagnosis Date ??? Abnormal [...] Complicated with perforation. Repeat in 10 years. [place], [place] ??? DILATATION AND CURETTAGE ??? ESOPHAGOGASTRODUODENOSCOPY 08/22/2014 ??? STRABISMUS SURGERY Bilateral 1986 ??? THYROIDECTOMY, PARTIAL Right 06/06/2015 Right thyroid lobectomy and isthmusectomy. ??? TONSILLECTOMY SQUEEGEE FINISHER HISTORY OB History Para Term AB Living 3 0 3 SAB TAB Ectopic Molar Multiple Live Births 1 2 # Outcome Date GA Lbr Benjamin/2nd Weight Sex Delivery Anes PTL Lv 3 TAB TAB TA 2 TAB TAB TA 1 SAB SAB SA Menarche was at age 14. Menopause was at age 50. Menses were not regular. She has not has bleeding since menopause. She is sexually active and has no issues with intercourse. Social History Socioeconomic History ??? Marital status: Spouse name: Not on file ??? Number of children: Not on file ??? Years of education: Not on file ??? Highest education level: Not on file Occupational History Employer: [employer] Social Needs ??? Financial resource strain: Not on file ??? Food insecurity: Worry: Not on file Inability: Not on file ??? Transportation needs: Medical: Not on file Non-medical: Not on file Tobacco Use ??? Smoking status: Never Smoker ??? Smokeless tobacco: Never Used Substance and Sexual Activity ??? Alcohol use: Yes Comment: Social ??? Drug use: No ??? Sexual activity: Yes Partners: Male Comment: No history of STDs. + history of abnormal pap smear in 1997 requiring colposcopy. All normal pap smears since them. + new partner in the last year, Lifestyle ??? Physical activity: Days per week: Not on file Minutes per session: Not on file ??? Stress: Not on file Relationships ??? Social connections: Talks on phone: Not on file Gets together: Not on file Attends taoist service: Not on file Active member of club or organization: Not on file Attends meetings of clubs or organizations: Not on file Relationship status: Not on file ??? Intimate partner violence: Fear of current or ex partner: Not on file Emotionally abused: Not on file Physically abused: Not on file Forced sexual activity: Not on file Other Topics Concern ??? Not on file Social History Narrative ??? Not on file Family History Problem Relation Age of Onset ??? Heart attack Father ??? Coronary artery disease Father ??? Stroke Father ??? Alcohol user Father ??? Bladder cancer Brother ??? Emphysema Mother ??? Hypertension Mother ??? Gluten sensitivity Sister ??? Diabetes Maternal Grandmother ??? Heart disease Brother ??? Alcohol abuse Brother PREVENTATIVE SERVICES Up to date: Mammogram, Lipid panel, Diabetes screening, Flu vaccine, and Tdap Done today: Pap Smear and Shingles vaccine She will schedule: Colon screening test PHYSICAL EXAM Vitals: 04/17/19 1014 BP: 100/60 Patient Position: Sitting Pulse: 60 Resp: 16 Height: 172 cm Weight: 85.7 kg GENERAL: Well nourished female in no acute distress. SKIN: No rashes or lesions HEAD: Normocephalic, atraumatic. EYES: Sclerae without injection or icterus. ENT: Vision and hearing grossly intact. LYMPH NODES: No supraclavicular, infraclavicular, or axillary lymphadenopathy. BREASTS: Symmetric bilaterally. No lesions or dimpling of the skin noted. No dominant masses palpable. Nipples without inversion or drainage. HEART: Regular rate and rhythm. No murmurs, rubs or gallops. LUNGS: Breathing nonlabored. Chest clear to auscultation bilaterally. No wheezes or rales. ABDOMEN: Soft, nontender. Nondistended. Normoactive bowel sounds. No masses palpable. RECTUM: No external hemorrhoids noted. GENITALIA: External genitalia without lesions or abnormalities. Normal pubic hair distribution. Urethral meatus normal in location and appearance without masses. Vaginal mucosa is pink and moist with asmall amount of thin clear discharge present. The cervix is nulliparous and without gross lesions or abnormalities. On bimanual examination, the uterus is normal in size and nontender, there are no adnexal masses or tenderness noted. EXTREMITIES: Lower extremities nontender. No edema. GAIT: Normal. MENTAL: Alert and oriented times three. Affect pleasant. Mood happy. IMPRESSION/PLAN: 63 y.o. female who presents for annual DOCTOR OF NAPRAPATHIC MEDICINE exam today and has concerns about ovarian cancer since she recently had a friend who was diagnosed with this. 1. Preventative services: Pap smear done today. Mammogram is up to date. Shingles vaccination ordered. She will check with her insurance to see if this is covered. Other preventative services issues are managed by Dr. Alarcon her PCP. 2. Concern about ovarian cancer: She has back pain that sounds musculoskeletal in nature. She was encouraged to resume her physical therapy exercises and see if it gets better. She has also had centralweight gain, but describes a change in her eating habits which could have lead to this. She will letme know if she does not notice a change her abdominal girth with weight loss or if her abdominal girth continues to increase and we would need to evaluate this further. I offered a pelvic US to evaluate for abnormalities, considering her concern for ovarian cancer and her current symptoms. However, wediscussed the limitations of pelvic US for screening for ovarian cancer, and we discussed that thereis no reliable screening test for this. She has elected not to proceed with pelvic US at this time. 3. Medication allergies: Patient reports allergies to penicillins and sulfa. She is going to be having surgery in the near future and has also had limitations in the antibiotics she has been given due to these allergies. She reports that she and Dr. Alarcon had discussed the option of referral to Immunology in [place] for evaluation and determination of if she has true allergies to these medications. However, she has not heard from [place] about scheduling an appointment. A referral for this was placed today. 4. Chronic medical issues: The patient follows with Dr. Alarcon in Internal Medicine for these and withDr. Kuhn in Psyciatry for her psychiatric issues. 5. Vulvar pruritis: No abnormalities were noted on exam. However, no testing was done because she mentioned this after the exam was complete. She was provided with our vulvar care handout. If she has persistent issues with this, she will call with she is symptomatic and I will squeeze her in for a visit to test for infections. 6. Follow-up: With Immunology in [place] in the near future. With me in 1 year for annual exam. documented in this encounter Plan of Treatment Upcoming Encounters Date Type Specialty Care Team Description 11/01/2022 Office Visit Urology Regina Black, DIANN, C.N.P. [address] [phone] (Wo rk) documented as of this encounter Procedures Procedure Name Priority Date/Time Associated Diagnosis Comme nts THINPREP W/HPV Routine 04/18/2019 7:40 AM Pap Smear Results for this CO-TEST SCREEN CDT Examination procedure are in the results section. HPV WITH Routine 04/18/2019 7:40 AM Results f or this GENOTYPING, PCR, CDT procedure a re in THINPREP the results section. documented in this encounter Results HPV with Genotyping, PCR, ThinPrep (04/18/2019 7:40 AM CDT) P athologist Signature HPV with Negative Negative 04/19/2019 Genotyping, 4:33 PM CDT ThinPrep, PCR Comment: Negative for high risk HPV by nucleic ac id amplification. ??The following high risk HPV types were not detected: 16, 18, 31, 33, 35, 39, 45, 51, 52, 56, 58, 59, 66, and 68 Specimen Anatomical Collection Method Collection Time Receive d Time (Source) Location / / Volume Laterality Varies 04/18/2019 7:40 AM 9 8:13 CDT AM CDT Radha Shaw M.D. LAB MICROBIOLOGY - GENERAL O RDERABLES Performing Organization Address City/State/ZIP Code Phon e Number [facility] [address] [place] [id number] LAB ThinPrep w/HPV Co-Test Screen (04/18/2019 7:40 AM CDT) Component Value Ref Test Analysis Performed Pathologis t Range Method Time At Signature 04/23/2019 8:35 AM CDT Report AMBER Lincoln (ASCP) 04/23/20 19 electronically I verify that I have examined all relevant slides/ma terials 8:35 AM signed by for the specimen(s) and rendered or confirmed the diagnosis. CDT Gross Description Received specimen 04/23/2019 in a ThinPrep 8:35 AM vial. CDT Pap Test Source Cervical/Endocervi 04/23/2019 sathish 8:35 AM CDT Clinical History Screening 04/23/2019 8:35 AM CDT Menstrual PM 04/23/2019 Status(LMP, PM, 8:35 AM ) CDT Hormone None/Not known 04/23/2019 Therapy/Contracep 8:35 AM tives CDT Interpretation Cervical/Endocervical ??(ThinPrep): 04/23/2019 Satisfactory for Evaluation 8:35 AM Negative for Intraepithelial Lesion or Malignancy CDT High Risk HPV Testing results are NEGATIVE. HPV by Retirement Assistant-Mediated Amplification ??(TMA) for E6/E7 viral messenger RNA (mRNA) is an in-vitro diagnostic test for the detection of 14 high-risk Human Papilloma (HPV) types (16, 18, 31, 33, 35, 39, 45, 51, 52, 56, 58, 59, 66, and 68) in cervical specimens. Additional testing performed at [facility], [address] [place] [address]. Specimen Anatomical Collection Method Collection Time Receive d Time (Source) Location / / Volume Laterality Varies 04/18/2019 7:40 AM 9 8:13 (Cervix/Endocerv CDT AM CDT ix) Narrative This result has an attachment that is no t available. Radha Shaw M.D. LAB PAP PATHDX ORDERABLES Performing Organization Address City/State/[place] [address] CYTOLOGY documented in this encounter Visit Diagnoses Diagnosis Gynecological Examination Normal - Prima ry Allergy Drug Personal History Pap Smear Examination Pruritus Vulva documented in this encounter Additional Health Concerns Assessment Noted Time PHQ-9 Depression Total Score: 2 04/17/2019 10:20 AM CD T documented as of this encounter Care Teams Occupational Therapy Technician Relationship Specialty Start Date End Date Cindy Alarcon M.D. PCP - General 04/28/17 08/14/20 documented as of this encounter
--- OUTSIDE RECORDS SUMMARY | 2022-09-22 13:34 | XMS_ITS | Encounter Summary ---
:1955 Author Organization [facility] Address [address] [place] [address] Care Team Providers Name Role Phone Cindy Alarcon M.D. Primary Care Provider Reason for Visit Reason Comments Hemorrhoids drainage Outpatient (Routine) - Closed Specialty Diagnoses / Procedures Referred By Contact Refer red To Contact General Surgery Diagnoses Bleeding Rectal Hemorrhoids Internal Cindy Alarcon M.D. [facility] Region [address] [facility], [facility] [address] [place] [address] Referral ID Status Reason Start Date Expiration Date Visits V isits Requested Authorized [id number] Closed Specialty 06/22/2018 06/22/2019 1 1 Services Required Encounter Details Date Type Department Care Team Description 06/23/2018 Comprehensive Visit Department of Tomas Wallis Rectal; General Surgery in [place] Hemorrhoids Internal [place], [place] [address] [place] [phone] Social History Tobacco Use [...] er 09/12/2022 How often do you attend quaker or anabaptism services? Never 05/13/2019 Do you belong to any clubs or organizations such as quaker N o 09/12/2022 groups, unions, fraternal or [...] place to sleep or slept in a fdc (including now)? Sex Assigned at Date Recorded Female 11/29/2017 6:36 PM DIRECTOR OF COMMUNITY SERVICES documented as of this encounter Last Filed Vital Signs Vital Sign Reading Time Taken Comments Blood Pressure 106/67 06/23/2018 2:12 PM CDT Pulse 70 06/23/2018 2:12 PM CDT Temperature - - Respiratory Rate - - Oxygen Saturation - - Inhaled Oxygen Concentration - - Weight - - Height - - Body Mass Index - - documented in this encounter Consult Notes Tomas Wallis M.D. - 06/23/2018 2:00 PM CDT Emelyn Oliveros is a 62 y.o. female seen at the request of Dr. Alarcon for rectal bleeding and thrombosed hemorrhoid. The bleeding was described as a streak of blood on the toilet paper and came after an episode of severe diarrhea and stomach flu. It is associated with a palpable lump, which was normally not present. Interestingly, the bleeding seems to be a little worse lately than it was when it started. Her last colonoscopy was in 2013 and a 10 year repeat follow-up was apparently recommended. Current Outpatient Prescriptions Medication Sig Dispense Refill [...] No current facility-administered medications for this visit. Allergies Allergen Reactions ??? Amoxicillin Hives [...] SULFA DRUGS ??? Tape [Adhesive Tape-Silicones] Rash Past Medical History: Diagnosis Date ??? Abnormal [...] Complicated with perforation. Repeat in 10 years. [place], [place] ??? DILATATION AND CURETTAGE ??? ESOPHAGOGASTRODUODENOSCOPY 08/22/2014 ??? STRABISMUS SURGERY Bilateral 1985 ??? THYROIDECTOMY, PARTIAL Right 06/06/2015 Right thyroid lobectomy and isthmusectomy. ??? TONSILLECTOMY BP 106/67 Pulse 70 PHYSICAL EXAMINATION: General: Appears well. Rectal: External examination was performed only. There is a thrombosed ulcerated hemorrhoid with theclot coming through the hemorrhoid over most of the visible surface. It is mildly tender. IMPRESSION/PLAN: Thrombosed ulcerated hemorrhoid causing rectal bleeding. Patient reassured. This will likely resolveon its own. I did ask her to return to see me in 2 weeks for repeat examination and the patient is currently scheduled for July 14. Electronically signed by: Tomas Wallis M.D. 06/26/18 6:50 AM documented in this encounter Plan of Treatment Upcoming Encounters Date Type Specialty Care Team Description 11/01/2022 Office Visit Urology Regina Black, DIANN, C.N.P. [address] [phone] (Wo rk) documented as of this encounter Visit Diagnoses Diagnosis Bleeding Rectal Hemorrhoids Internal documented in this encounter Care Teams Embossing Press Operator Apprentice Relationship Specialty Start Date End Date Cindy Alarcon M.D. PCP - General 04/28/17 08/14/20 documented as of this encounter
--- OUTSIDE RECORDS SUMMARY | 2022-09-22 13:34 | XMS_ITS | Encounter Summary ---
:1955 Author Organization [facility] Address [address] [place] [address] Care Team Providers Name Role Phone Cindy Alarcon M.D. Primary Care Provider Reason for Visit Reason Comments Med Refill Encounter Details Date Type Department Care Team Description 11/28/2018 Refill Department of [facility] Daina Alarcon M.D. Med Refill Internal Medicine in [address] [place] [address], [facility] [address] [place] [address] [address] [facility] [address] Social History Tobacco Use [...] How often do you attend bahai or caodaism services? Never 05/13/2019 Do you [...] or slept in a long-term (including now)? Sex Assigned at Date Recorded Female 11/29/2017 6:36 PM RECREATION COUNSELOR documented as of this encounter Plan of Treatment Upcoming Encounters Date Type Specialty Care Team Description 11/01/2022 Office Visit Urology Regina Black, DRAWER IN PLAIN LOOM, C.N.P. [address] [phone] (Wo rk) documented as of this encounter Visit Diagnoses Not on filedocumented in this encounter Care Teams Buffing Wheel Former Automatic Relationship Specialty Start Date End Date Cindy Alarcon M.D. PCP - General 04/28/17 08/14/20 documented as of this encounter
--- OUTSIDE RECORDS SUMMARY | 2022-09-22 13:34 | XMS_ITS | Encounter Summary ---
:1955 Author Organization [facility] Address [address] [place] [address] Care Team Providers Name Role Phone Cindy Alarcon M.D. Primary Care Provider Encounter Details Date Type Department Care Team Description 04/20/2019 Clinical Communication Department of [facility] Cindy Alarcon M.D. [address], [address] [address] [place] [address] Social History Tobacco Use Types [...] How often do you attend gnosticism or episcopal services? Never 05/13/2019 Do you [...] at Date Recorded Female 11/29/2017 6:36 PM FAMILY MEDICINE PHYSICIAN documented as of this encounter Plan of Treatment Upcoming Encounters Date Type Specialty Care Team Description 11/01/2022 Office Visit Urology Regina Blakc, TRACK FITTER, C.N.P. [address] [phone] (Wo rk) documented as of this encounter Visit Diagnoses Not on filedocumented in this encounter Additional Health Concerns Assessment Noted Time PHQ-9 Depression Total Score: 2 04/17/2019 10:20 AM CD T documented as of this encounter Care Teams Operations Representative Relationship Specialty Start Date End Date Cindy Alarcon M.D. PCP - General 04/28/17 08/14/20 documented as of this encounter
--- OUTSIDE RECORDS SUMMARY | 2022-09-22 13:34 | XMS_ITS | Encounter Summary ---
:1955 Author Organization [facility] Address [address] [place] [address] Care Team Providers Name Role Phone Cindy Alarcon M.D. Primary Care Provider Encounter Details Date Type Department Care Team Description 04/19/2019 Clinical Communication Department of [facility] Cidny Alarcon M.D. [address], [address] [address] [place] [address] Social History Tobacco Use Types [...] er 09/12/2022 How often do you attend hoahaoism or hindu services? Never 05/13/2019 Do you belong to any clubs or organizations such as hoahaoism N o 09/12/2022 groups, unions, fraternal or [...] at Date Recorded Female 11/29/2017 6:36 PM RADIATION MONITOR documented as of this encounter Plan of Treatment Upcoming Encounters Date Type Specialty Care Team Description 11/01/2022 Office Visit Urology Regina Black, AGRICULTURE INSPECTOR, C.N.P. [address] [phone] (Wo rk) documented as of this encounter Visit Diagnoses Not on filedocumented in this encounter Additional Health Concerns Assessment Noted Time PHQ-9 Depression Total Score: 2 04/17/2019 10:20 AM CD T documented as of this encounter Care Teams Pot Washer Relationship Specialty Start Date End Date Cindy Alarcon M.D. PCP - General 04/28/17 08/14/20 documented as of this encounter
--- OUTSIDE RECORDS SUMMARY | 2022-09-22 13:34 | XMS_ITS | Encounter Summary ---
:1955 Author Organization [facility] Address [address] [place] [address] Care Team Providers Name Role Phone Cindy Alarcon M.D. Primary Care Provider Encounter Details Date Type Department Care Team Description 04/17/2019 Hospital Encounter Department of Cindy Alarcon M.D. [facility] Laboratory Medicine [address] [place] [address] Examina tion Adult in [facility] [address] [address] [place], [place] [phone] (Fax) [phone] Social History Tobacco Use Types Packs/Day Years [...] er 09/12/2022 How often do you attend sikh or yazidism services? Never 05/13/2019 Do you belong to any clubs or organizations such as sikh N o 09/12/2022 groups, unions, fraternal or [...] at Date Recorded Female 11/29/2017 6:36 PM TRAVEL COUNSELOR AUTOMOBILE CLUB documented as of this encounter Medications at [...] miscellaneous medical autoSV, heated 0 09/20/2014 supply [facility] humidifier, mask, headgear, filters and tubing. Length [...] encounter Miscellaneous Notes Result Encounter Note - Margarita Manuel L.P.N. - 04/17/2019 9:10 AM CDT Left message for patient to return our call. Result Encounter Note - Alexsander Mcknight C.MMainor - 04/17/2019 9:10 AM CDT Attempted to contact patient and left a voicemail with call back number. Result Encounter Note - Alexsander Mcknight C.MMainor - 04/17/2019 9:10 AM CDT Name of person contacted: Patient Relationship to patient: Not applicable Call back number: N/A Health Information Management Director: Not applicable Information provided: Contacted and discussed with patient recent test results, patient did show an understanding of results. parts counter sales person/patient received and understood education/information provided: Yes parts counter sales person/patient agreed to the Plan of Care: Yes documented in this encounter Plan of Treatment Upcoming Encounters Date Type Specialty Care Team Description 11/01/2022 Office Visit Urology Regina Black APRN, C.N.P. [address] [phone] (Wo rk) documented as of this encounter Procedures Procedure Name Priority Date/Time Associated Diagnosis Comme nts LIPID PANEL, S Routine 04/17/2019 9:27 AM Health Maintenance R esults for this CDT Examination Adult procedure are in the results section. HEPATIC FUNCTION Routine 04/17/2019 9:27 AM Health Maintenance Results for this PANEL, S CDT Examination Adult procedure are in the results section. CBC WITHOUT Routine 04/17/2019 9:27 AM Health Maintenance Res ults for this DIFFERENTIAL, B CDT Examination Adult procedu re are in the results section. THYROID-STIMULATING Routine 04/17/2019 9:27 AM Health Maintena nce Results for this HORMONE-SENSITIVE CDT Examination Adult proce dure are in (S-TSH) the results section. HEMOGLOBIN A1C, B Routine 04/17/2019 9:27 AM Health Maintenanc e Results for this CDT Examination Adult procedure are in the results section. BASIC METABOLIC Routine 04/17/2019 9:27 AM Health Maintenance Results for this PANEL, S/P CDT Examination Adult procedure are in the results section. documented in this encounter Results S-TSH (Thyroid-Stimulating Hormone - Sensitive) (04/17/2019 9:27 AM CDT) P athologist Signature TSH, Sensitive 1.9 0.3 - [...] Address City/State/ZIP Code Phon e Number [facility] [address] [place] [address] LAB (ABNORMAL) Lipid Panel (04/17/2019 9:27 AM [...] M.D. LAB BLOOD ADD-ON Performing Organization Address City/[facility]/ZIP Code Phon e Number [facility] [address] [place] [phone] LAB Hemoglobin A1c (04/17/2019 9:27 AM CDT) P athologist Signature Hemoglobin A1c, 5.4 4.2 - 5.6 04/17/2019 B % 11:04 AM CDT Specimen Anatomical Collection Method Collection Time Receive d Time (Source) Location / / Volume Laterality Blood (Blood, 04/17/2019 9:27 AM 04/17/20 19 Venous) CDT 10:31 AM CDT Cindy Alarcon M.D. LAB BLOOD ADD-ON Performing Organization Address City/[facility]/ZIP [facility] Phon e Number [facility] [address] [place] [phone] LAB Hepatic Function Panel (04/17/2019 9:27 AM [...] Address City/State/ZIP Code Phon e Number [facility] [address] [place], [place] [phone] LAB Basic Metabolic Panel (04/17/2019 9:27 AM [...] >=60 04/17/2019 Black/ mL/min/BSA 1:57 PM CDT English Comment: ----ADDITIONAL INFORMATION---- Estimated GFR calculated using [...] Organization Address City/State/ZIP Code Phon e Number [facility] [address] [place] [address] LAB CBC without Differential (04/17/2019 9:27 AM [...] Address City/State/ZIP Code Phon e Number [facility] [address] [place] [address] LAB documented in this encounter Visit Diagnoses Diagnosis Health Maintenance Examination Adult documented in this encounter Additional Health Concerns Assessment Noted Time PHQ-9 Depression Total Score: 2 04/17/2019 10:20 AM CD T documented as of this encounter Care Teams Tube Balancer Relationship Specialty Start Date End Date Cindy Alarcon M.D. PCP - General 04/28/17 08/14/20 documented as of this encounter
--- OUTSIDE RECORDS SUMMARY | 2022-09-22 13:34 | XMS_ITS | Encounter Summary ---
:1955 Author Organization [facility] Address [address] [place] [address] Care Team Providers Name Role Phone Cindy Alarcon M.D. Primary Care Provider Encounter Details Date Type Department Care Team Description 04/20/2019 Clinical Communication Department of Chuy Alarcon M.D. [facility] Internal [address] [facility], Medicine in [address] [facility] [address] [place] [address] Social History Tobacco Use Types [...] How often do you attend gnosticism or faith services? Never 05/13/2019 Do you belong to [...] at Date Recorded Female 11/29/2017 6:36 PM GLOBAL MARKETING SPECIALIST documented as of this encounter Miscellaneous Notes Telephone Encounter - Alexsander Mcknight C.MMainor - 04/20/2019 2:28 PM CDT SUBJECTIVE CHIEF COMPLAINT / REASON FOR CALL No chief complaint on file. INFORMATION DISCUSSED Returned call to patient. For further details, please refer to Result Notes dated . PLAN Disposition/Recommendation: N/A Information: patient/caller able to repeat back in their own words Caller agreeable to plan of care: yes The following references were used: provider Dr. Cindy Alarcon Telephone Encounter - Tonya Thomson - 04/20/2019 2:25 PM CDT Patient is returning call. You may leave a message or contact her through the portal. Telephone Encounter - Alexsander Mcknight V. CJuanchoM.Debra - 04/20/2019 9:56 AM CDT Attempted to contact patient and left a voicemail with call back number. Telephone Encounter - Beatris Sargent - 04/20/2019 9:44 AM CDT Reason for Communication: Patient returning phone call. Please advise. Current Can Nursing/Provider leave a detailed message: Did the patient refuse triage through Nurse line? (for symptom based concerns): Action Needed: Call back Name of Medication (if relevant): documented in this encounter Plan of Treatment Upcoming Encounters Date Type Specialty Care Team Description 11/01/2022 Office Visit Urology Regina Black, SWAHILI TEACHER, C.N.P. [address] [place] [phone] (Wo rk) documented as of this encounter Visit Diagnoses Not on filedocumented in this encounter Additional Health Concerns Assessment Noted Time PHQ-9 Depression Total Score: 2 04/17/2019 10:20 AM CD T documented as of this encounter Care Teams Scissors Sharpener Relationship Specialty Start Date End Date Cindy Alarcon M.D. PCP - General 04/28/17 08/14/20 documented as of this encounter
--- OUTSIDE RECORDS SUMMARY | 2022-09-22 13:35 | XMS_ITS | Encounter Summary ---
:1955 Author Organization [facility] Address [address] [place] [address] Care Team Providers Name Role Phone Cindy Alarcon M.D. Primary Care Provider Encounter Details Date Type Department Care Team Description 01/20/2018 Hospital Encounter Department of Cindy Alarcon M.D. Pain Hip Bilateral Radiology in [address] [place] [address] Leon, [facility] [address] [place], [place] 300 [facility] [address] [facility] [place] [phone] [address] (Fax) [phone] Social History Tobacco Use Types Packs/Day Years [...] er 09/12/2022 How often do you attend christian or jew services? Never 05/13/2019 Do you belong to any clubs or organizations such as christian N o 09/12/2022 groups, unions, fraternal or [...] slept in a group home (including now)? Sex Assigned at Date Recorded Female 11/29/2017 6:36 PM SOFT WORK CIGAR MACHINE OPERATOR documented as of this encounter Medications [...] miscellaneous medical autoSV, heated 0 09/20/2014 supply mis humidifier, mask, headgear, filters and tubing. Length of Need: 99 PNV NO.95/FERROUS Take 1 tablet by 0 10/22/2016 FUM/FOLIC AC ( mouth daily. MULTIVITAMINS ORAL) busPIRone (for_BUSPAR) 10 Take 10 mg by mouth 0 11/12/2020 mg tablet 3 (three) times a day. DOCOSAHEXANOIC ACID/EPA Take 1 capsule by 0 11/12/2020 (FISH OIL ORAL) mouth daily. melatonin 10 mg tablet Take 10 mg by mouth 0 03/31/2018 at bedtime as needed. raNITIdine (for_ZANTAC) Take 75 mg by mouth 0 05/12/2018 75 mg tablet once as needed. SYNTHROID 75 mcg tablet Take 1 tablet (75 90 tablet 3 01/2011/28/2018 mcg total) by mouth every morning before breakfast. Brand Name. documented as of this encounter Progress Notes Cindy Alarcon M.D. - 01/20/2018 12:20 PM CST Please call her. Bilateral hip joint x-ray show minimal arthritis changes only. WORK CIGAR MACHINE OPERATOR documented in this encounter Plan of Treatment Upcoming Encounters Date Type Specialty Care Team Description 11/01/2022 Office Visit Urology Regina Black APRN, C.N.P. [address] [phone] (Wo rk) documented as of this encounter Procedures Procedure Name Priority Date/Time Associated Comments Diagnosis DX HIPS AND RAD - Routine 01/20/2018 9:38 Pain Hip Results for this PELVIS BILATERAL (most inpatients AM SOFT WORK CIGAR MACHINE OPERATOR Bilateral procedu re are in 3-4 VIEWS and all the results outpatients) section. documented in this encounter Results DX Hips and Pelvis Bilateral 3-4 Views (01/20/2018 9:38 AM SOFT WORK CIGAR MACHINE OPERATOR) Anatomical Region Laterality Modality Lower Extremity, Pelvis, Hip Bilateral Computed Ra diography Specimen (Source) Anatomical Collection Method Collection Time Re ceived Time Location / / Volume Laterality 01/20/2018 10:19 AM SOFT WORK CIGAR MACHINE OPERATOR Impressions 01/20/2018 10:19 AM SOFT WORK CIGAR MACHINE OPERATOR IMPRESSION: Bony pelvis is intact. No radiographic evidence of acute fracture or dislocation. Hip joint spaces appear sym metric with minimal equivocal arthritic narrowing. No marginal spurring is noted . No bony erosive or osteolytic changes. Sacroiliac joints are patent. Mild degen erative spondylotic disc space changes visualized lower lumbar spine. Narrative 01/20/2018 10:19 AM SOFT WORK CIGAR MACHINE OPERATOR EXAM: DX HIPS AND PELVIS BILATERAL 3-4 VIEWS Procedure Note Talib Gould M.D. - 01/20/2018Formatt ing of this note might be different from the original. EXAM: DX HIPS AND PELVIS BILATERAL 3-4 V IEWS IMPRESSION: Bony pelvis is intact. No ra diographic evidence of acute fracture or dislocation. Hip joint spaces appear sym metric with minimal equivocal arthritic narrowing. No marginal spurring is noted . No bony erosive or osteolytic changes. Sacroiliac joints are patent. Mild degen erative spondylotic disc space changes visualized lower lumbar spine. Cindy Alarcon M.D. [facility] documented in this encounter Visit Diagnoses Diagnosis Pain Hip Bilateral documented in this encounter Care Teams Piece Worker Relationship Specialty Start Date End Date Cindy Alarcon M.D. PCP - General 04/28/17 08/14/20 documented as of this encounter
--- OUTSIDE RECORDS SUMMARY | 2022-09-22 13:35 | XMS_ITS | Encounter Summary ---
:1955 Author Organization [facility] Address [address] [place] [address] Care Team Providers Name Role Phone Cindy Alarcon M.D. Primary Care Provider Encounter Details Date Type Department Care Team Description 01/28/2018 Abstract DATA ABSTRACTION Provider, Historical Social History Tobacco Use Types Packs/Day Years [...] er 09/12/2022 How often do you attend zoroastrianism or druze services? Never 05/13/2019 Do you belong to any clubs or organizations such as zoroastrianism N o 09/12/2022 groups, unions, fraternal or [...] or slept in a residential (including now)? Sex Assigned at Date Recorded Female 11/29/2017 6:36 PM CLIENT EVALUATOR documented as of this encounter Plan of Treatment Upcoming Encounters Date Type Specialty Care Team Description 11/01/2022 Office Visit Urology Regina Black, KENNEL KEEPER, C.N.P. [address] [phone] (Wo rk) documented as of this encounter Visit Diagnoses Not on filedocumented in this encounter Care Teams Primary Education Professor Relationship Specialty Start Date End Date Cindy Alarcon M.D. PCP - General 04/28/17 08/14/20 documented as of this encounter
--- OUTSIDE RECORDS SUMMARY | 2022-09-22 13:35 | XMS_ITS | Encounter Summary ---
:1955 Author Organization [facility] Address [address] [place] [address] Care Team Providers Name Role Phone Cindy Alarcon M.D. Primary Care Provider Reason for Visit Reason Comments Injection Visit Appointment Request (Routine) - Closed Specialty Diagnoses / Referred By Contact Referred To Contact Procedures Physical Medicine and Rehabilitation Referral ID Status Reason Start Date Expiration Date Visits Requ ested Visits Authorized [id number] Closed 11/28/2017 05/27/2018 1 1 Encounter Details Date Type Department Care Team Description 11/30/2017 Office Visit Department of Physical Gabe Rodriguez Shoulder Right (Primary Dx); Jerome M.D. Primary Osteoarthritis Shoulder Right Rehabilitation in [address] [place] [address], [address] [place] [phone] Social History Tobacco Use Types Packs/Day Years Used Date Smoking Tobacco: Never Smokeless Tobacco: Never Alcohol Habits Answer Date Recorded How often [...] you get together with friends or relatives? Abeba er 09/12/2022 How often do you attend buddhism or islam services? Never 05/13/2019 Do you belong to any clubs or organizations such as buddhism N o 09/12/2022 groups, unions, fraternal or [...] at Date Recorded Female 11/29/2017 6:36 PM APPLICATIONS PROJECT MANAGER documented as of this encounter Last Filed Vital Signs Vital Sign Reading Time Taken Comments Blood Pressure 122/70 11/30/2017 3:07 PM APPLICATIONS PROJECT MANAGER Pulse - - Temperature - - Respiratory Rate - - Oxygen Saturation - - Inhaled Oxygen Concentration - - Weight 90.2 kg (198 lb 11.9 oz) 11/30/2017 3:07 PM APPLICATIONS PROJECT MANAGER Height - - Body Mass Index 30.65 11/15/2017 1:57 PM APPLICATIONS PROJECT MANAGER documented in this encounter Procedure Notes Gabe Rodriguez M.D. - 11/30/2017 3:00 PM CSTAssociated Order(s): LARGE JOINT INJECTION Post-Procedure Diagnose(s): Pain Shoulder Right; Primary Osteoarthritis Shoulder Right Ms. Oliveros is a pleasant 62 y.o.-year-old female. The main reason for Ms. Oliveros's visit today is right shoulder pain. Please see Dr. Morton's detailed note from 11/15/17 for more details of the HPI. Referral source: Dr. Morton Diagnosis: 1. Right shoulder pain 2. Right glenohumeral DJD PATIENT EDUCATION Ready to learn, no apparent learning barriers were identified; learning preferences include listening. Explained diagnosis and treatment plan; patient expressed understanding of the content. INFORMED CONSENT Discussed the risks, benefits, alternatives, and the necessity of other members of the health care team participating in the procedure. All questions answered and consent given. Following denial of allergy and review of potential side effects and complications including but not necessarily limited to infection, allergic reaction, local tissue breakdown, elevation of blood glucose, injury to soft tissue and/or nerves, and seizure, the patient indicated their understanding and agreed to proceed. Ms. Oliveros does have an allergy listed to chlorhexidine, but she has tolerated chlorhexidine well since the allergy diagnosis was given. The allergy was that she developed a mild rash following one administration of chlorhexidine. PROCEDURAL PAUSE Procedural pause conducted to verify: correct patient identity, procedure to be performed, and as applicable, correct side and site, correct patient position, and availability of implants, special equipment, or special requirements. PROCEDURE DETAILS The procedure was carried out under sterile technique. Procedure: Ultrasound-guided right glenohumeral joint corticosteroid injection. Transducer: 9-2 MHz curvilinear array transducer. Patient Position: Lateral decubitus Localization Process: A 9-2 MHz curvilinear array transducer was utilized to evaluate the posterior glenohumeral joint and plan the approach for the procedure. Approach: Lateral to medial in plane with the transducer entering the posterior glenohumeral joint. Local anesthesia: 2 cc's of 1% lidocaine was delivered via a 25 gauge 2 inch needle. Injection/Aspiration: Following the delivery of local anesthesia, real-time ultrasound was used to guide the same 25 gauge 2 inch needle into the posterior glenohumeral joint. At this point, the syringe containing the lidocaine was disconnected from the needle while the needle remained within the posterior glenohumeral joint. Following this, a syringe containing a mixture of 3 cc of 0.2% ropivacaine and 1 cc of 40 mg/cc of Depo-Medrol was attached to the needle. After reconfirming needle tip placement within the posterior glenohumeral joint, this mixture was delivered to the target area while observing injectate flow with real-time ultrasonographic imaging. Postprocedure Care: Ms. Oliveros will follow the typical post-procedure care following an ultrasound guided glenohumeral joint corticosteroid injection including that she will avoid submerging the shoulder for the next 72 hours as well as will ice the shoulder as needed over the next three days. Large Joint Injection Date/Time: 11/30/2017 3:57 PM Performed by: Gabe Rodriguez Authorized by: Gabe Rodriguez Skin preparation: chlorhexidine Procedure location: shoulder - Shoulder site: R glenohumeral Image guidance: Ultrasound The use of direct ultrasound visualization of the needle was required (rather than a non-guided injection) to ensure accurate injection delivery and to maximize clinical benefit beyond that obtained with a non-guided injection. Additionally, there can be diagnostic specificity when evaluating effectiveness of the injection, and for safety purposes to minimize risk of bleeding or injury to surrounding structures. Additional procedure details or diagnostic findings may be noted under Other proceduredetail in this note. Images have been archived in [employer]: click the 'Dept Filter' button in [employer],then the 'Clear (Show All)' button, then OK. The following medications were administered at the target site(s): Local anesthetic: 2 mL lidocaine 10 mg/mL (1 %); 3 mL ropivacaine (PF) 0.2 % Corticosteroid: 40 mg methylPREDNISolone acetate 40 mg/mL ICATIONS PROJECT MANAGER documented in this encounter Plan of Treatment Upcoming Encounters Date Type Specialty Care Team Description 11/01/2022 Office Visit Urology Regina Black, DIANN, C.N.P. [address] [phone] (Wo rk) documented as of this encounter Procedures Procedure Name Priority Date/Time Associated Diagnosis Comme nts OK ARTHCS ASP/INJ Routine 11/30/2017 3:00 PM Pain Should er Right Results for this MJR JT W US APPLICATIONS PROJECT MANAGER Primary Osteoarthritis proce dure are in Shoulder Right the results section. documented in this encounter Results OK ARTHCS ASP/INJ MJR JT W US (11/30/2017 3:00 PM APPLICATIONS PROJECT MANAGER) Narrative MMODAL - 11/30/2017 3:00 PM APPLICATIONS PROJECT MANAGER Gabe Rodriguez M.D. ? 11/30/2017 ??3:58 PM Large Joint Injection Date/Time: 11/30/2017 3:57 PM Performed by: Gabe Rodriguez Authorized by: Gabe Rodriguez Skin preparation: chlorhexidine Procedure location: shoulder - Shoulder site: R glenohumeral Image guidance: Ultrasound ??The use of direct ultrasound visualiz ation of the needle was required (rather than a non-guided injection) to ensure accurate injection delivery and to maximize clinical benefit beyond that obtained with a non-guided injection. ??Additionally, there can be diagnostic specificity when evaluating effectiveness of the injectio n, and for safety purposes to minimize risk of bleeding or injury to s urrounding structures. Additional procedure details or diagnostic findings may be noted under Other procedure detail in this note. Images h ave been archived in [employer]: click the 'Dept Filter' button in [employer], then the 'Clear (Show All)' button, then OK. The following medications were administe red at the target site(s): ??Local anesthetic: 2 mL lidocaine 10 m g/mL (1 %); 3 mL ropivacaine (PF) 0.2 % ??Corticosteroid: 40 mg methylPREDNISol one acetate 40 mg/mL Gabe Rodriguez M.D. PROCEDURE/MINOR SURGICAL ORD ERABLES Performing Organization Address City/State/ZIP Code Phon e Number MMODAL MMODAL NA documented in this encounter Visit Diagnoses Diagnosis Pain Shoulder Right - Primary Primary Osteoarthritis Shoulder Right documented in this encounter Administered Medications Inactive Administered Medications - up to 3 most recent administrations Medication Order MAR Action Action Date Dose Rate Site lidocaine 10 mg/mL (1 %) injection 2 Given 11/30/2017 3:57 PM CS T 2 mL mL (for_XYLOCAINE) 2 mL, infiltration, One-Time, Starting on Tue11/30/17 at 1557, For 1 dose methylPREDNISolone acetate injection 40 mg Given 11/30/2017 3:57 PM APPLICATIONS PROJECT MANAGER 40 mg (for_DEPO-Medrol) 40 mg, intra-articular, One-Time, Starting on Tue11/30/17 at 1557, For 1 dose ropivacaine (PF) epidural 3 mL (for_NARO PIN) Given 11/30/2017 3:57 PM APPLICATIONS PROJECT MANAGER 3 mL 3 mL, One-Time, Starting on Tue11/30/17 at 1557, For 1 dose documented in this encounter Additional Health Concerns Assessment Noted Time PHQ-9 Depression Total Score: 5 11/16/2016 8:29 AM APPLICATIONS PROJECT MANAGER documented as of this encounter Care Teams Construction Driller Relationship Specialty Start Date End Date Cindy Alarcon M.D. PCP - General 04/28/17 08/14/20 documented as of this encounter
--- OUTSIDE RECORDS SUMMARY | 2022-09-22 13:35 | XMS_ITS | Encounter Summary ---
:1955 Author Organization [facility] Address [address] [place] [address] Care Team Providers Name Role Phone Cindy Alarcon M.D. Primary Care Provider Encounter Details Date Type Department Care Team Description 01/30/2018 Hospital Encounter Department of Cindy Alarcon M.D. Health Examination Laboratory Medicine [address] Finding in [place]ón[place] Leon, [facility] [address] [place], [place] [address] [facility] [address] [place], [place] [phone] (Fax) [phone] Social History Tobacco Use Types Packs/Day Years [...] How often do you attend anabaptism or nondenominational services? 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 [address] [place] [address] [phone] (Wo rk) documented as of this encounter Procedures Procedure Name Priority Date/Time Associated Diagnosis Comme nts LIPID PANEL, S Routine 01/30/2018 7:40 AM Health Examination R esults for this CDT Abnormal Finding procedure a re in Adult the results section. HEPATIC FUNCTION Routine 01/30/2018 7:40 AM Health Examination Results for this PANEL, S CDT Abnormal Finding procedure a re in Adult the results section. CBC WITHOUT Routine 01/30/2018 7:40 AM Health Examination Res ults for this DIFFERENTIAL, B CDT Abnormal Finding procedur e are in Adult the results section. THYROID-STIMULATING Routine 01/30/2018 7:40 AM Health Examinat ion Results for this HORMONE-SENSITIVE CDT Abnormal Finding proced ure are in (S-TSH) Adult the results section. HEMOGLOBIN A1C, B Routine 01/30/2018 7:40 AM Health Examinatio n Results for this CDT Abnormal Finding procedure a re in Adult the results section. BASIC METABOLIC Routine 01/30/2018 7:40 AM Health Examination Results for this PANEL, S/P CDT Abnormal Finding procedure a re in Adult the results section. documented in this encounter Results S-TSH (Thyroid-Stimulating Hormone - Sensitive) (01/30/2018 7:40 AM CDT) P athologist Signature TSH, Sensitive 1.7 0.3 - 4.2 01/30/2018 [facility] mIU/L 12:[address] [facility] Comment: Biotin has been identified by the barbi paredes as a potential interfering substance. ??Higher concentr ations of biotin may be found in multivitamins, hair/nail supple ments, and workout supplements. ??If the result does not [facility] clinical observations, repeat testing after patient refrains fr om the use of supplements for at least 12 hours. Specimen Anatomical Collection Method Collection Time Receive d Time (Source) Location / / Volume Laterality Blood 01/30/2018 7:40 AM 8 CDT 11:01 AM CDT Cindy Alarcon M.D. LAB BLOOD ADD-ON Performing Organization Address City/State/ZIP Code Phon e Number [facility] [address] [place] [address] LAB (ABNORMAL) Lipid Panel (01/30/2018 7:40 AM CDT) athologist Signature Cholesterol, 223 (H) mg/dL 01/30/2018 [facility] Total 12:00 PM CDT [facility] [employer] [facility] LAB Comment: ----REFERENCE VALUE---- Desirable: < 200 Borderline high: 200 - 239 High: > or = 240 Triglycerides 68 mg/dL 01/30/2018 12:00 PM CDT [facility] LAB Comment: ----REFERENCE VALUE---- Normal: <150 Borderline high: 150-199 High: 200-499 Very high: > or =500 Cholesterol, HDL, S 75 >=50 mg/dL 01/30/2018 12:00 PM [facility] Calculated LDL 134 (H) mg/dL 01/30/2018 12:00 PM [facility] [facility] Comment: ----REFERENCE VALUE---- Desirable: <100 Above Desirable: 100-129 Borderline high: 130-159 High: 160-189 Very high: > or =190 Cholesterol, Non-HDL, 148 mg/dL 01/30/2018 12:00 P M CDT [facility] [place] B Comment: ----REFERENCE VALUE---- Desirable: <130 Above Desirable: 130-159 Borderline high: 160-189 High: 190-219 Very high: > or =220 Specimen Anatomical Collection Method Collection Time Receive d Time (Source) Location / / Volume Laterality Blood 01/30/2018 7:40 AM 8 CDT 11:01 AM CDT Cindy Alarcon M.D. LAB BLOOD ADD-ON Performing Organization Address City/State/ZIP Code Phon e Number [facility] [address] [place] [address] LAB Hemoglobin A1c (01/30/2018 7:40 AM CDT) athologist Signature Hemoglobin A1c, 5.3 4.2 - 5.6 01/30/2018 [facility] B % 12:01 PM CDT [facility] LAB Specimen Anatomical Collection Method Collection Time Receive d Time (Source) Location / / Volume Laterality Blood 01/30/2018 7:40 AM 8 CDT 11:05 AM CDT Cindy Alarcon M.D. LAB BLOOD ADD-ON Performing Organization Address City/State/ZIP Code Phon e Number [facility] [address] [place] [address] LAB Hepatic Function Panel (01/30/2018 7:40 AM CDT) [facility] Method Time Signature Bilirubin, Total, S 0.5 <=1.2 01/30/2018 [facility] mg/dL 12:[address] [facility] Bilirubin, Direct, S <0.2 0.0 - 0.3 01/30/2018 [facility] mg/dL 12:[address] [facility] Aspartate 23 8 - 43 01/30/2018 [facility] Aminotransferase U/L 12:00 PM [facility] [employer] (AST), S SYSTEM- [facility] LAB Alanine 29 7 - 45 01/30/2018 [facility] Aminotransferase U/L 12:00 PM [facility] [employer] (ALT), S SYSTEM- [facility] LAB Alkaline 84 50 - 130 01/30/2018 [facility] Phosphatase, S U/L 12:[address] [facility] LAB Albumin, S 4.6 3.5 - 5.0 01/30/2018 [facility] g/dL 12:00 PM T [facility] Protein, Total, S 7.1 6.3 - 7.9 01/30/2018 [facility] g/dL 12:[address] [facility] Specimen Anatomical Collection Method Collection Time Receive d Time (Source) Location / / Volume Laterality Blood 01/30/2018 7:40 AM 8 CDT 11:01 AM CDT Cindy Alarcon M.D. LAB BLOOD ADD-ON Performing Organization Address City/State/ZIP Code Phon e Number [facility] [employer] [address] [place] [address] LAB BMP (Basic Metabolic Panel) (01/30/2018 7:40 AM CDT) P athologist Signature Potassium, S 4.6 3.6 - 5.2 01/30/2018 [facility] mmol/L 12:00 PM [facility] Sodium, S 140 135 - 145 01/30/2018 [facility] mmol/L 12:00 PM [facility] Chloride, S 103 98 - 107 01/30/2018 [facility] mmol/L 12:00 PM [facility] Bicarbonate, S 26 22 - 29 01/30/2018 [facility] mmol/L 12:00 PM [facility] Anion Gap 11 7 - 15 01/30/2018 [facility] 12:00 PM [facility] BUN (Blood Urea 11 6 - 21 01/30/2018 [facility] Nitrogen), S mg/dL 12:00 PM [facility] Creatinine 0.80 0.59 - 01/30/2018 [facility] 1.04 mg/dL 12:00 PM [facility] eGFR 80 >=60 01/30/2018 [facility] Non-Black/Afric mL/min/BSA 12:00 PM [facility] [place] [facility] LAB Comment: ----ADDITIONAL INFORMATION---- Estimated GFR calculated using the 2009 CKD_EPI creatinine equation. eGFR Black/ >90 >=60 mL/min/BSA 01/30/2018 12:0 0 PM [facility] [place] [facility] Comment: ----ADDITIONAL INFORMATION---- Estimated GFR calculated using the 2009 CKD_EPI creatinine equation. Calcium, Total, S 9.6 8.9 - 10.1 mg/dL 01/30/2018 12:0 0 PM [facility] [place] [facility] Glucose, S 94 70 - 140 mg/dL 01/30/2018 12:00 PM [facility] Specimen Anatomical Collection Method Collection Time Receive d Time (Source) Location / / Volume Laterality Blood 01/30/2018 7:40 AM 8 CDT 11:01 AM CDT Phunt Phyo M.D. LAB BLOOD ADD-ON Performing Organization Address City/[facility]/ZIP Code Phon e Number [facility] [address] [place] [address] LAB CBC without Differential (01/30/2018 7:40 AM CDT) P athologist Signature Hemoglobin 14.4 11.6 - 01/30/2018 [facility] 15.0 g/dL 9:[address] [facility] Hematocrit 42.8 35.5 - 01/30/2018 [facility] 44.9 % 9:00 AM T [facility] Erythrocytes 4.61 3.92 - 01/30/2018 [facility] 5.13 9:00 AM T [facility] x10(12)/L [facility] MCV 92.8 78.2 - 01/30/2018 [facility] 97.9 fL 9:[address] [facility] RBC Distrib Width 12.5 12.2 - 01/30/2018 [facility] 16.1 % 9:[address] [facility] Platelet Count 277 157 - 371 01/30/2018 [facility] x10(9)/L 9:[address] [facility] Leukocytes 6.2 3.4 - 9.6 01/30/2018 [facility] x10(9)/L 9:00 AM [facility] Specimen Anatomical Collection Method Collection Time Receive d Time (Source) Location / / Volume Laterality Blood 01/30/2018 7:40 AM 8 7:56 CDT AM CDT Cindy Alarcon M.D. LAB BLOOD ADD-ON Performing Organization Address City/[facility]/ZIP Code Phon e Number [facility] [address] [facility] [place] [address] [place] [facility] [address] [place] [address] ARI[place] [address], [facility] [place] [facility] documented in this encounter Visit Diagnoses Diagnosis Health Examination Abnormal Finding Adul t documented in this encounter Care Teams Multimedia Technician Relationship Specialty Start Date End Date Cindy Alarcon M.D. PCP - General 04/28/17 08/14/20 documented as of this encounter
--- OUTSIDE RECORDS SUMMARY | 2022-09-22 13:35 | XMS_ITS | Encounter Summary ---
:1955 Author Organization [facility] Address [address] [place] [address] Care Team Providers Name Role Phone Unavailable Primary Care Provider Unavailable Encounter Details Date Type Department Care Team Description 02/11/2017 Hospital Encounter HX [facility] Jimi Barber M.D. [address] [facility], [address] [place], [place] [address] (Wo rk) Social History Tobacco Use Types Packs/Day Years Used Date Smoking Tobacco: Never Alcohol Habits Answer Date Recorded [...] er 09/12/2022 How often do you attend taoism or jew services? 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 miscellaneous medical autoSV, heated 0 09/20/2014 supply misc humidifier, mask, headgear, filters and tubing. Length of Need: 99 PNV NO.95/FERROUS Take 1 tablet by 0 10/22/2016 FUM/FOLIC AC ( mouth daily. MULTIVITAMINS ORAL) clonazePAM Take 1 tablet by 0 01/17/2017 10/20/20 17 (for_KlonoPIN) 1 mg mouth daily as tablet needed. raNITIdine (for_ZANTAC) Take 75 mg by mouth 0 05/12/2018 75 mg tablet once as needed. documented as of this encounter Plan of Treatment Upcoming Encounters Date Type Specialty Care Team Description 11/01/2022 Office Visit Urology Regina Black, DIANN, C.N.P. [address] [phone] (Wo rk) documented as of this encounter Visit Diagnoses Not on filedocumented in this encounter Additional Health Concerns Assessment Noted Time PHQ-9 Depression Total Score: 5 11/16/2016 8:29 AM VOCATIONAL COORDINATOR documented as of this encounter
--- OUTSIDE RECORDS SUMMARY | 2022-09-22 13:35 | XMS_ITS | Encounter Summary ---
:1955 Author Organization [facility] Address [address] [place] [address] Care Team Providers Name Role Phone Unavailable Primary Care Provider Unavailable Encounter Details Date Type Department Care Team Description 01/17/2017 Hospital Encounter HX [facility] Fortino Yadav M.D. [address] [place] [address] [phone] Social History Tobacco Use Types Packs/Day Years [...] er 09/12/2022 How often do you attend mormonism or adventist services? Never 05/13/2019 Do you belong to any clubs or organizations such as mormonism N o 09/12/2022 groups, unions, fraternal or [...] at Date Recorded Female 11/29/2017 6:36 PM FOOD PROCESSING PLANT MANAGER documented as of this encounter Last Filed Vital Signs Vital Sign Reading Time Taken Comments Blood Pressure 110/70 01/17/2017 10:34 AM FOOD PROCESSING PLANT MANAGER Pulse 76 01/17/2017 9:25 AM FOOD PROCESSING PLANT MANAGER Temperature - - Respiratory Rate 16 01/17/2017 9:25 AM FOOD PROCESSING PLANT MANAGER Oxygen Saturation - - Inhaled Oxygen Concentration - - Weight 86.2 kg (190 lb 0.6 oz) 01/17/2017 9:25 AM FOOD PROCESSING PLANT MANAGER Height 170 cm (5' 6.93) 01/17/2017 10:34 AM FOOD PROCESSING PLANT MANAGER Body Mass Index 29.83 01/17/2017 9:25 AM FOOD PROCESSING PLANT MANAGER documented in this encounter Medications at Time [...] as needed. documented as of this encounter H&P Notes Fortino Alarcon M.D. - 01/17/2017 8:58 AM CST [id number] CHIEF COMPLAINT/ REASON FOR VISIT 1. Annual physical exam. 2. Review chronic medical problems. 3. Discuss test results. HISTORY OF PRESENT ILLNESS Alfredo is a 61-year-old female who presents to the clinic today for above complaints. She has been having difficulty with anxiety. She has been seeing Dr. Odette Gaytan, a psychiatrist in [place] who has put her back on Buspirone. When Alfredo is feeling anxious she develops some GI symptoms including gassiness and bloating. She is requesting a refill on Clonazepam today which she uses occasionally. Other than the increased anxiety symptoms Alfredo states she has been well. She is having no lightheaded or dizziness. Alfredo is having no nausea or vomiting. She is having no difficulty with constipation. She had a fall a few years ago resulting in a fracture of her right proximal humerus which was treated with splinting and physical therapy. Since then Alfredo has had pain in her right arm and shoulder and has been evaluated by orthopedics and PM&R. MRI on 06/09/2016 showed avascular of the humeral head of the right shoulder. MRI right shoulder dated 06/09/2016 at [facility] conclusion: 1. 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 2. Narrowing of the acromiohumeral space with mild to moderate subacromial/subdeltoid bursal inflammation. 3. Mild to moderate supraspinatus, infraspinatus and subscapularis tendinosis. No discrete tears evident. 4. Intra-articular biceps tendinosis. 5. Glenohumeral joint effusion. There is a generalized grade II with scattered areas of superimposed grade III chondromalacia of the glenohumeral joint. She had a cortisone injection in her right shoulder on 06/28/2016 with Edi Villagomez and did not notice much improvement in her pain. She has been working with lifestyle modifications to find ways to control her pain such adjusting the way she moves her right arm. She has difficulty with sleep and wonders if there is anything to try about this. Alfredo has been diagnosed with obstructive sleep apnea and uses her BiPAP regularly. She has not had her BiPAP machine checked in a long time but her vents seem to be working well. Alfredo had fasting labs checked on 01/12/2017 which showed an LDL of 148, HDL of 63, triglycerides of 85 and total cholesterol of 228. She last had a fasting lipid panel checked on 01/26/2016 which showed an LDL of 137, HDL of 62, triglycerides of 65 and total cholesterol of 212. She had been taking #3 cap sules of fish oil daily and is now juan taking #1 capsule of fish oil a day which she attributes tothe change in her LDL. Alfredo is having no difficulty with choking or aspiration. Her gastroesophageal reflux disease is controlled except for dyspepsia when she is anxious. She has history of colon diverticulosis. She was advised to have high fiber diet. She has hypothyroidism and is status post thyroid lobectomy and isthmectomy on thyroid hormone replacement. Alfredo has some neck pain which is likely due to arthritis. She has no numbness, tingling or weaknessin her hands. There are no further questions or concerns at this time. MEDICATIONS Buspirone 10 mg, 1 tablet, PO, t.i.d. Vitamin D3 1,000 IU, 1 tablet, PO, daily. Clonazepam 1 mg, 1 tablet, PO, daily, PRN for anxiety, renewed today. Synthroid 75 mcg, 1 tablet, PO, daily. Fish oil, 1 capsule, PO, daily. Zantac 75 mg, PO, b.i.d. PRN. multivitamin, PO, daily. Lubricant eye drops, 1 drop to both eyes, b.i.d. PRN. ALLERGIES Fluoxetine. Penicillin. Sulfa drugs. Vitron-C. Wellbutrin. SYSTEMS REVIEW As per the history of present illness. All other systems are reviewed and are negative. PAST MEDICAL/ SURGICAL HISTORY Thyroid nodule, right. Hypothyroidism, acquired. History of hyponatremia. History of hyperkalemia. Iron deficiency anemia. Anemia. Anxiety. Obstructive sleep apnea, uses BiPAP. Gastroesophageal reflux disease. Hiatal hernia. Diverticulosis of colon. Rosacea. Osteopenia. Dizziness. Fatigue. Shortness of breath. History of hyperglycemia. Elevated liver function test. Family history of thyroid cancer. History of right proximal humerus fracture in 2012 treated with splinting and physical therapy. Right shoulder and arm pain. Status post removal of left breast fibroadenoma. Status post tonsillectomy. Status post D & C. History of bilateral strabismus surgery, 1985. Status post colonoscopy, 08/22/2014. Repeat in 10 years. Status post capsule endoscopy, 12/03/2014. Status post thyroid lobectomy and isthmectomy, 06/06/2015. PREVENTIVE SERVICES Colonoscopy: 08/22/2014. Tetanus booster: 06/22/2013. Influenza: 10/22/2016. SOCIAL HISTORY She is not . She denies tobacco or drug abuse. She drinks caffeine daily. She used to drink alcohol socially. FAMILY HISTORY Bladder cancer in brother. Emphysema in mother. Hypertension in mother. Coronary artery disease and myocardial infarction in father. Stroke in father. Gluten- sensitivity in sister. Her niece had thyroid cancer. VITAL SIGNS HEIGHT: 170 cm. WEIGHT: 86.2 kg. BMI: 29.83 kg/m2. PULSE RATE: 76 /min. RESP RATE: 16 /min. SYSTOLIC: 92 mmHg, 110 mmHg. DIASTOLIC: 60 mmHg, 70 mmHg. PHYSICAL EXAMINATION GENERAL: Patient is sitting. No distress. Able to talk without interruption. SKIN: No rash, bruise or nodules noted on visualized skin. HEAD: No facial rash, asymmetry or sinus tenderness. EYES: PERRLA. EOMI. No pallor, icterus or conjunctivitis. ENT: No nasal congestion, discharge or bleeding. There is no ear infection or discharge. No mastoid tenderness. Tongue is moist and midline. No oral lesions. LYMPH NODES: No cervical, supraclavicular, axillary, inguinal or femoral lymphadenopathy. THYROID: No thyromegaly. No thyroid thrill or bruit. PERIPHERAL VESSELS: Good radial and pedal pulses. HEART: No carotid bruit. No JVD. Regular rhythm. There is no S3, gallop, murmur or thrill. LUNGS: Normal respiratory effort. Clear to auscultation. Normal percussion. ABDOMEN: Moves with respiration. Bowel sounds present. Soft. No rebound tenderness, guarding or rigidity. No organomegaly. SPINE: No scoliosis or kyphosis. No spinous tenderness or mass. JOINTS: No joint swelling or deformity. No decreased range of motion. EXTREMITIES: No clubbing, cyanosis, edema, infection or calf tenderness. GAIT: No abnormal gait. MENTAL: Alert and oriented x 3. Normal mood and affect. NEURO: Intact cranial nerves. Intact sensory and motor. 2+ DTRs throughout. Equal on both sides. Normal finger-nose test. Negative Romberg. Able to do tandem walk. DIAGNOSTICS: Reviewed labs dated 01/12/2017. IMPRESSION/ REPORT/ PLAN 1. Annual physical examination. We discussed adult health preventive services. She needs to eat healthy diet and exercise regularly to maintain healthy body weight and BMI. Today BMI is 29.83 kg/m2. Immunizations are up-to-date. Advised to see eye doctor once a year and dentist every six months. She needs health maintenance exam every year. She will follow with Dr. Radha Shaw, Warehouse Administrator yearly. 2. History of skin basal cell cancer near left axilla. There were no skin complaints. She needs fullskin exam with craft demonstrator at least once a year. She is no longer following with Dr. Aneta [facility]; she plans to schedule with either Dr. Bernardo or another local craft demonstrator. 3. Anxiety with dyspepsia. It is fairly stable. She was advised to continue current medications. We discussed potential side effects from medications. She will follow with Dr. Odette Gaytan, Psychiatrist. 4. Hypothyroidism on replacement. She is euthyroid clinically. She will continue with Synthroid 75 mcg daily. TSH will be due to be rechecked in 6 months. 5. Hyperlipidemia. Patient was advised to continue low cholesterol, low fat diet, regular exercise, and lifestyle modification. 6. Insomnia. I recommended trying melatonin and calming music. 7. Obstructive sleep apnea. It is controlled. She will continue BiPAP use. 8. Gastroesophageal reflux disease with hiatal hernia. It is controlled with diet and as needed use of Zantac. Patient will continue antireflux measures. 9. Right arm pain with history of closed humerus fracture. She will continue to follow with Dr. Gabe Rodriguez as recommended. 10. Osteopenia. Her last bone density scan was on 10/27/2015 and she has another scheduled for tomorrow, 01/18/2017. I recommended checking with her insurance to see if this test is something that her insurance pays for more frequently than every 2 years. I recommended that she take vitamin D supplementdaily. If she does on not have 1,200 mg of calcium daily through diet or supplement. 11. History of diverticulosis. She needs to make sure fiber intake is adequate. 12. Discussed test results. I reviewed test results from 01/12/2017. All questions were answered. 13. Followup. TSH will be due to be rechecked in 6 months. This document serves as a record of services personally performed by Dr. Fortino Alarcon. It was created on their behalf by Nikki Lugo, a trained emergency medical tech. The creation of this record is based on the scribe's personal observations and the provider's statements to them. This document has been checked and approved by the attending provider. Fortino Alarcon M.D./mary Electronically Signed By: FORTINO ALARCON MD On: 02/24/2017 07:35 PM Modified by and Electronically Signed by: FORTINO ALARCON MD On: 02/24/2017 07:35 PM Source: [facility] [id number] Document Id: [id number] documented in this encounter Nursing Notes Nancy Cardona L.P.N. - 03/21/2017 9:26 AM CDT Prior authorization request Synthroid Prior authorization request for Synthroid completed through Cover My Meds, [place] BBGYLD. Time spent on form 20 minutes. Electronically Signed By: NANCY CARDONA LPN On: 03/21/2017 09:26 AM Source: [facility] POWERCHART Document Id: [id number] documented in this encounter Miscellaneous Notes Miscellaneous - Conor Martinez, R.N. - 03/11/2017 8:54 AM CDT refill request - Synthroid Document Contains Addenda Addendum by NANCY CARDONA LPN on March 21, 2017 09:30:25 CDT Completed prior authorization. Addendum by CONOR MARTINEZ RN on March 11, 2017 09:04:55 CDT From: CONOR MARTINEZ RN ([facility] [place] Medication Refill) To: FB/OW Medication Prior Auth; Sent: 03/11/2017 09:04:55 CDT ! Subject: FW: refill request - Synthroid - PA Needed PA Needed for Brand Name. [employer]. ([phone]). , Group # [id number]. Pharmacy : [facility]; Store ID [id number]. Pharmacy notes request is Urgent Addendum by FORTINO ALARCON MD on March 11, 2017 08:59:59 CDT From: FORTINO ALARCON MD Sent: 03/11/2017 08:59:59 CDT Subject: RE:refill request - Synthroid Approved Order:levothyroxine (Synthroid 75 mcg (0.075 mg) oral tablet) 1 tab(s) PO Daily brand approved, increasing from 0.050mg fill when requested Qty: 90 tab(s) Refills: 2 CANDIDO Route To Pharmacy - [facility] Signed by FORTINO ALARCNO MD 03/11/2017 08:59:51 From: CONOR MARTINEZ RN ([facility] Medication Refill) To: FORTINO ALARCON MD; Sent: 03/11/2017 08:54:26 CDT Subject: refill request - Synthroid On hold pending signature Order:levothyroxine (Synthroid 75 mcg (0.075 mg) oral tablet) 1 tab(s) PO Daily brand approved, increasing from 0.050mg fill when requested Qty: 90 tab(s) Refills: 2 CANDIDO Route To Pharmacy - [facility] Caller is: ( _ ) Patient ( _ ) Mother ( _ ) Father ( _ ) Spouse ( _ ) Daughter ( _ ) Son ( x ) Pharmacy ( _ ) Other: _ Provider: [facility] Pharmacy: [facility] Name of Medications Needing Refill: Synthroid Last Refill Date: no noted, last written 03/25/16 Additional Information: previously prescribed by Dr. Chang; Will require PA. 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 - 01/17/2017 3:45 PM CST Normal TSH 01/17/2017 From: FORTINO ALARCON MD To: ALFREDO OLIVEROS Cc: KEDAR Alarcon Nurse; Sent: 01/17/2017 15:45:57 FOOD PROCESSING PLANT MANAGER Subject: Normal TSH 01/17/2017 Actions: Notify patient of results, Notify patient of Future Order Dear Alfredo, I am pleased to report that your thyroid test is OK. Please continue current dose of Synthroid dailyin the morning on empty stomach. We need to recheck thyroid function test in 6 months. Please follow up with us as we discussed during your visit or sooner if you have any concerns. If you have questions or concerns, please do not hesitate to call our office. Dr. Alarcon Results: Date Result Name Value Ref Range 01/17/2017 10:57 TSH 1.96 mIU/L (0.27 - 4.20) Source: [facility] POWERCHART Document Id: [id number] Electronically signed by Conversion, [facility] [employer] [id number] at 04/26/2017 5:04 AM CDT Miscellaneous - Fortino Alarcon M.D. - 01/17/2017 3:44 PM CST Normal Results Letter January 17, 2017 ALFREDO OLIVEROS [address] [place] [address] [id number] Dear ALFREDO OLIVEROS, I am pleased to report that your thyroid test is OK. Please continue current dose of Synthroid dailyin the morning on empty stomach. We need to recheck thyroid function test in 6 months. Please follow up with us as we discussed during your visit or sooner if you have any concerns. If you have questions or concerns, please do not hesitate to call our office. Result Name Current Result Previous Result Normal Range TSH (mIU/L) 1.96 01/17/2017 1.30 09/03/2016 0.27 - 4.20 Sincerely, FORTINO ALARCON [address] [place] [address] Electronic Signature Electronically Signed By: FORTINO ALARCON MD On: January 17, 2017 This document has images extracted. Source: [facility] POWERCHART Document Id: [id number] Electronically signed by Conversion, [facility] [employer] [id number] at 04/26/2017 5:04 AM CDT Miscellaneous - Fortino Alarcon M.D. - 01/17/2017 10:37 AM CST Ambulatory Patient Summary [address] [id number] Visit Information Name: ALFREDO OLIVEROS PABLO [facility] Number: [id number] Current Date: 01/17/2017 10:37:15 Physicians Attending Provider: FORTINO ALARCON MD Primary Care Provider: FORTINO ALARCON MD SHARONDA ALFREDO SHAH has been given the following list of follow-up instructions, medication list, and patient education materials: Follow-up Instructions Your Medications Here is a list of your medications. It is important to take your medications as directed. Use a pillbox or chart to help remind you to take your medications. Please let your doctor or nurse know if you have problems taking your medications. Medication/Strength How to Take Indications/Special Instructions/Comments/Notes for Patient Medication Changes/Routing busPIRone (busPIRone 10 mg oral tablet) 1 Tablet(s), Oral, three times a day cholecalciferol (Vitamin D3 1000 intl units oral tablet) 1 Tablet(s), Oral, once a day clonazePAM (clonazePAM 1 mg oral tablet) 1 Tablet(s), Oral, once a day as needed for Anxiety Routed to Printer levothyroxine (Synthroid 75 mcg (0.075 mg) oral tablet) 1 Tablet(s), Oral, once a day brand approved, increasing from 0.050mg fill when requested multivitamin, ( Multivitamins) Oral, once a day ocular lubricant (Lubricant Eye Drops ophthalmic solution) 1 Drops, Eyes(Both), two times a day PRN omega-3 polyunsaturated fatty acids (Fish Oil oral capsule) 1 cap, Oral, once a day ranitidine (Zantac 75) 75 mg, Oral, two times a day as needed Stop Taking the Following Medications: traZODone (traZODone 50 mg oral tablet) Medication list as of 01-17-17 10:37 Attention: If you have any medications at home that are not on this list, DO NOT take them until youcontact your provider for clarification. Give a copy of your medication list to your primary care provider. Update your medication list any time medications or doses are changed and carry your medication list at all times in case of emergency. Electronically Signed By: FORTINO ALARCON MD Signed On:17-JAN-2017 10:37:10 Your Allergies & Intolerances Substance Reaction Symptoms Category Comments penicillins Hives Drug PENICILLINS sulfa drugs Rash Drug SULFA DRUGS Wellbutrin Tinnitus Drug Vitron-C Drug FLUoxetine Hives Drug FLUOXETINE HCL - Prozac Your Problem List Problem Status Onset Comments Hypothyroidism Acquired Active Thyroidectomy Partial S/P Active Anemia Iron Deficiency NOS Active Hyponatremia Active Osteopenia Active Disease Gastroesophageal Reflux (GERD ELE) Active Impaired (IFG) Fasting Glucose Active Hyperlipidemia NOS Active Abnormal Pap Smear Pers Hx Active Hernia Hiatal per EGD Active 08/14/2013 Anxiety NOS Active Apnea Sleep Obstructive (ABRAHAN) Active Cancer Skin Basal Cell Near left axilla Active Cancer Thyroid Fam Hx Active Diverticulosis Colon Active Elevated Liver Function Test (LFT) Active Fracture Shoulder Right Active 03/14/2013 Hyperkalemia Active Nodule Thyroid Right Lobe Active Rosacea NOS Active High Risk Medication Active Hypothyroidism Acquired Active Your Upcoming Appointments Date Time Location Provider 01/18/2017 08:30 [facility] Room 1 02/11/2017 08:30 [facility] RIOJAS, Radha Snowden Attention: Contact your local Clinic if further appointment detail needed. Consider Using Patient Online Services Patient Online Services is a secure online and Mobile application that lets you: ?? View lab and test results ?? View portions of your medical record including clinical notes, immunizations and discharge summaries ?? Request an appointment or medication refill ?? Review your appointment schedule ?? Send secure messages to your care team Its easy to create an account if you dont have one. Go to [email or web address] and click on Create Your Account. Then, follow the directions to complete the online form. Youll be asked for your [facility] number which you can find at the top of this document. Your Goals/Additional instructions: Source: [facility] POWERCHART Document Id: [id number] PROCESSING PLANT MANAGER Miscellaneous - Fortino Alarcon M.D. - 01/17/2017 10:37 AM CST Ambulatory Discharge Medication List [address] [id number] Visit Information Name: ALFREDO OLIVEROS [facility] Number: [id number] Current Date: 01/17/2017 10:37:14 Attending Provider: FORTINO ALARCON MD Primary Care Provider: FORTINO ALARCON MD ALFREDO OLIVEROS has been given the following list of medications: Your Medications It is important to take your medications as directed. Use a pill box or chart to help remind you to take your medications. Please let your doctor or nurse know if you have problems taking your medications. Medication/Strength How to Take Indications/Special Instructions/Comments/Notes for Patient Medication Changes/Routing busPIRone (busPIRone 10 mg oral tablet) 1 Tablet(s), Oral, three times a day cholecalciferol (Vitamin D3 1000 intl units oral tablet) 1 Tablet(s), Oral, once a day clonazePAM (clonazePAM 1 mg oral tablet) 1 Tablet(s), Oral, once a day as needed for Anxiety Routed to Printer levothyroxine (Synthroid 75 mcg (0.075 mg) oral tablet) 1 Tablet(s), Oral, once a day brand approved, increasing from 0.050mg fill when requested multivitamin, ( Multivitamins) Oral, once a day ocular lubricant (Lubricant Eye Drops ophthalmic solution) 1 Drops, Eyes(Both), two times a day PRN omega-3 polyunsaturated fatty acids (Fish Oil oral capsule) 1 cap, Oral, once a day ranitidine (Zantac 75) 75 mg, Oral, two times a day as needed Stop Taking the Following Medications: traZODone (traZODone 50 mg oral tablet) Medication list as of 01-17-17 10:37 Attention: If you have any medications at home that are not on this list, DO NOT take them until youcontact your provider for clarification. Give a copy of your medication list to your primary care provider. Update your medication list any time medications or doses are changed and carry your medication list at all times in case of emergency. Electronically Signed By: FORTINO ALARCON MD Signed On:17-JAN-2017 10:37:10 Additional Information: Source: [facility] POWERCHART Document Id: [id number] PROCESSING PLANT MANAGER [place]ba - Fortino Alarcon M.D. - 01/17/2017 10:34 AM CST Ambulatory Vitals Height Weight Ambulatory Vitals Height Weight Entered On: 01/17/2017 10:36 FOOD PROCESSING PLANT MANAGER Performed On: 01/17/2017 10:34 FOOD PROCESSING PLANT MANAGER by FORTINO ALARCON MD Vitals/Ht/Wt Systolic Blood Pressure : 110 mmHg Diastolic Blood Pressure : 70 mmHg NIBP Mean : 83 mmHg BP Location : Left upper extremity Blood Pressure Cuff Size : Large Height : 170 cm(Converted to: 5 ft 7 inch(es), 67 inch(es)) FORTINO ALARCON MD - 01/17/2017 10:34 FOOD PROCESSING PLANT MANAGER Source: [facility] [employer] Document Id: [id number] FOOD PROCESSING PLANT MANAGER!8 PROCESSING PLANT MANAGER [place]ba - Madhu Herzog C.M.A. - 01/17/2017 9:25 AM CST Health Assessment Health Assessment Entered On: 01/17/2017 9:25 FOOD PROCESSING PLANT MANAGER Performed On: 01/17/2017 9:25 FOOD PROCESSING PLANT MANAGER by MADHU HERZOG [facility] Health Assessment Complete Health Assessment Complete or Modified : Annual Health Assessment Annual Health Assessment Completed : Yes MADHU HERZOG [facility] - 01/17/2017 9:25 FOOD PROCESSING PLANT MANAGER Nutrition Nutrition Risk Factors by History Adult : None MADHU HERZOG CMA - 01/17/2017 9:25 FOOD PROCESSING PLANT MANAGER Functional Current Daily Living Assistance : None MADHU HERZOG CMA - 01/17/2017 9:25 FOOD PROCESSING PLANT MANAGER Dependent Habits Exposure to Tobacco Smoke : Other: never Smoking Status : Never smoker Tobacco 2A : No Tobacco Use/Currently Using : No Tobacco Use/Last 30 Days : No Tobacco Use/Last 12 months : No Alcohol Use : Yes MADHU HERZOG [facility] - 01/17/2017 9:25 FOOD PROCESSING PLANT MANAGER Caffeine Use Grid Caffeine Use : Current Type : Coffee Frequency : Daily Amount : 2 cups MADHU HERZOG [facility] - 01/17/2017 9:25 FOOD PROCESSING PLANT MANAGER Recreational Drug Use Grid Drug Use : None MADHU HERZOG [facility] - 01/17/2017 9:25 FOOD PROCESSING PLANT MANAGER AUDIT Tool How Often Do You Have A Drink : Monthly or less How Many Drinks in a Day When Drinking : 1 or 2 Six or More Drinks On One Occassion : Never Audit Phase 1 Score : 1 MADHU HERZOG [facility] - 01/17/2017 9:25 FOOD PROCESSING PLANT MANAGER Psychosocial Domestic Abuse Concerns : None Behavioral Health Screen/Safety Assmt : Unable to obtain Sikhism Preference : Anglican MADHU HERZOG [facility] - 01/17/2017 9:25 FOOD PROCESSING PLANT MANAGER Advance Directive Advanced Directives : Yes Advance Directive Type : Living will Advance Directive Location : Scanned into EMR MADHU HERZOG [facility] - 01/17/2017 9:25 FOOD PROCESSING PLANT MANAGER Educ Needs Learning Style Preference Adult Grid Patient : None, Demonstration, Printed materials, Verbal explanation Family : None, Demonstration, Printed materials, Verbal explanation MADHU HERZOG [facility] - 01/17/2017 9:25 FOOD PROCESSING PLANT MANAGER Source: [facility] POWERCHART Document Id: [id number] FOOD PROCESSING PLANT MANAGER!42 PROCESSING PLANT MANAGER Miscellaneous - Madhu Herzog C.M.A. - 01/17/2017 9:25 AM CST Adult Certified Ophthalmic Medical Technician Intake/History Adult Certified Ophthalmic Medical Technician Intake/History Entered On: 01/17/2017 9:27 FOOD PROCESSING PLANT MANAGER Performed On: 01/17/2017 9:25 FOOD PROCESSING PLANT MANAGER by MADHU HERZOG [facility] Intake Chief Complaint : 1: annual physical Peripheral Pulse Rate : 76 /min Respiratory Rate : 16 /min Heart Rhythm : Regular Systolic Blood Pressure : 92 mmHg Diastolic Blood Pressure : 60 mmHg NIBP Mean : 71 mmHg BP Location : Left upper extremity Blood Pressure Cuff Size : Regular Height : 170 cm(Converted to: 5 ft 7 inch(es), 67 inch(es)) Actual Weight : 86.2 kg(Converted to: 190 lb 1 oz) Weight Source : Standing scale Dosing Weight Clinic : 86.2 kg Prosthetic device on during patient weight : No Clinic BSA : 2.02 Body Mass Index : 29.83 kg/m2 MADHU HERZOG [facility] 01/17/2017 9:25 FOOD PROCESSING PLANT MANAGER General Info Information Given By : Patient Languages : Bermudian Is Patient Female and 13-50 no hysterectomy : No MADHU HERZOG [facility] - 01/17/2017 9:25 FOOD PROCESSING PLANT MANAGER Subjective Pain Symptoms : Yes MADHU HERZOG [facility] 01/17/2017 9:25 FOOD PROCESSING PLANT MANAGER Pain Scale Pain Scale Verbal 0-10 : Open MADHU HERZOG [facility] 01/17/2017 9:25 FOOD PROCESSING PLANT MANAGER Pain Pain Assessment Grid Pain 1 Pain 2 Pain 3 Location : Upper arm Neck Abdomen Laterality : Right Bilateral Bilateral MADHU HERZOG [facility] 01/17/2017 9:25 FOOD PROCESSING PLANT MANAGER MADHU HERZOG [facility] 01/17/2017 9:25 FOOD PROCESSING PLANT MANAGER MADHU HERZOG [facility] 01/17/2017 9:25 FOOD PROCESSING PLANT MANAGER Dependent Habits Exposure to Tobacco Smoke : Other: never Smoking Status : Never smoker Tobacco 2A : No Tobacco Use/Currently Using : No Tobacco Use/Last 30 Days : No Tobacco Use/Last 12 months : No Alcohol Use : Yes MADHU HERZOG [facility] 01/17/2017 9:25 FOOD PROCESSING PLANT MANAGER Caffeine Use Grid Caffeine Use : Current Type : Coffee Frequency : Daily Amount : 2 cups MADHU HERZOG [facility] 01/17/2017 9:25 FOOD PROCESSING PLANT MANAGER Recreational Drug Use Grid Drug Use : None MADHU HERZOG [facility] 01/17/2017 9:25 FOOD PROCESSING PLANT MANAGER Source: [facility] Faction Skis Document Id: [id number] FOOD PROCESSING PLANT MANAGER!54 PROCESSING PLANT MANAGER documented in this encounter Plan of Treatment Upcoming Encounters Date Type Specialty Care Team Description 11/01/2022 Office Visit Urology Regina Black APRN, C.N.P. [address] [place] [phone] (Wo rk) documented as of this encounter Procedures Procedure Name Priority Date/Time Associated Diagnosis Comme nts THYROID-STIMULATING Routine 01/17/2017 10:57 AM R esults for this HORMONE-SENSITIVE FOOD PROCESSING PLANT MANAGER procedure are in (S-TSH) the results section. documented in this encounter Results Thyroid-Stimulating Hormone-Sensitive (s-TSH) (01/17/2017 10:57 AM FOOD PROCESSING PLANT MANAGER) P athologist Signature TSH 1.96 0.27 - 4.20 POWERCHART (Thyrotropin) YEIMI Comment: Biotin has been identified by the barbi paredes as a potential interfering substance. Higher concentrations of biotin may be found in multivitamins, hair/nail supplements, and workout supplements. If the result does not match clinical observat ions, repeat testing after patient refrains from the use of supplements for at least 12 hours. Specimen (Source) Anatomical Collection Method Collection Time Re ceived Time Location / / Volume Laterality Blood 01/17/2017 10:57 AM FOOD PROCESSING PLANT MANAGER Fortino Alarcon M.D. LAB BLOOD ADD-ON Performing Organization Address City/State/ZIP Code Phon e Number POWERCHART documented in this encounter Visit Diagnoses Not on filedocumented in this encounter Additional Health Concerns Assessment Noted Time PHQ-9 Depression Total Score: 5 11/16/2016 8:29 AM FOOD PROCESSING PLANT MANAGER documented as of this encounter
--- OUTSIDE RECORDS SUMMARY | 2022-09-22 13:35 | XMS_ITS | Encounter Summary ---
:1955 Author Organization [facility] Address [address] [place] [address] Care Team Providers Name Role Phone Unavailable Primary Care Provider Unavailable Encounter Details Date Type Department Care Team Description 02/02/2017 Hospital Encounter HX [facility] James Chin, ARTISTIC DIRECTOR, C.N.P. [address] [place], [place] [phone] (Wo rk) Social History Tobacco Use Types [...] How often do you attend adventism or orthodox services? Never 05/13/2019 Do you belong to [...] Date Recorded Female 11/29/2017 6:36 PM FOOD INSPECTOR documented as of this encounter Last Filed Vital Signs Vital Sign Reading Time Taken Comments Blood Pressure 98/60 02/02/2017 10:33 AM CDT Pulse 70 02/02/2017 10:33 AM CDT Temperature - - Respiratory Rate 16 02/02/2017 10:33 AM CDT Oxygen Saturation - - Inhaled Oxygen Concentration - - Weight 87 kg (191 lb 12.8 oz) 02/02/2017 10:33 AM CDT Height 170 cm (5' 6.93) 02/02/2017 10:33 AM CDT Body Mass Index 30.1 02/02/2017 10:33 AM CDT documented in this encounter Medications at Time [...] as needed. documented as of this encounter Progress Notes James Dao, DIANN, C.N.P. - 02/02/2017 10:11 AM CDT [id number] CHIEF COMPLAINT/REASON FOR VISIT Painful lesion on her chest. HISTORY OF PRESENT ILLNESS Alfredo is a 61-year-old female who was last seen in the Department of Obstetrics and Gynecology on 10/22/[address] Shaw for her comprehensive medical exam. She last had a mammogram performed on 10/22/2016 which came back indicating normal findings. She does have history of scattered fibroglandular densities in her bilateral breasts. She indicates to me that since last 01/28/2017, she has noticed a painful what she describes as cyst or boil at the base of her left breast. She describesit as painful. She notes that on Tuesday she googled management of such a lesion and read that she should put hot compresses on it. She started doing that and then started noticing some creamy white discharge. She also read that she should put some alcohol on it so after she would place the warm compresses she would clean the wound with alcohol. She also notes that for the last few years now she has had a hard cyst in that location. She has noted that when she has her mammograms and has had that inclu ded on her mammograms. She has not had any fevers. There is redness around the site but it has not expanded at all since it began. She notices some itchiness in her under arms. She notes that she was recently in [place] on vacation and it was shortly after that that she started noticing the symptoms. She also notes that she has for about 1 year now started wearing fairly tight sports bras and that sometimes the bra rubs underneath her breasts in this general area. She is wondering if possibly that could have been a contributing factor. She has not had any medication changes. She has not recently been treated for any infections. She does admit to a history of skin cancer that was a basal cell carcinoma many years ago that was treated. She does see a phytopathology teacher regularly for skin follow ups. Dreotes that she is allergic to ampicillin and had a severe outbreak of hives after taking it and thatkris often develops a rash after utilizing topical antibiotic so she has been avoiding that during this time. She also has history of GI bleed with ibuprofen and therefore avoids NSAIDs. She has taken Tylenol for the discomfort. MEDICATIONS 1. Buspirone. 2. Clindamycin (prescription provided today). 3. Clonazepam. 4. Fish oil. 5. Eye drops. 6. vitamins. 7. Synthroid. 8. Vitamin D3. 9. Zantac. ALLERGIES 1. Fluoxetine, reaction hives. 2. Penicillins, reaction hives. 3. Sulfa drugs, reaction rash. 4. Vitron-C. 5. Wellbutrin, reaction tinnitus. PAST MEDICAL/SURGICAL HISTORY Reviewed in the electronic medical record on today's date. VITAL SIGNS Heart rate 70, respiratory rate 16, blood pressure 98/60, height 170, weight 87.0, BMI 30.1. Tobaccouse: No. PHYSICAL EXAMINATION GENERAL: She is a well-appearing female, in no acute distress. SKIN: Patient's chest is examined. She does have a reddened, swollen, shiny area just under her leftbreast toward the central aspect of her chest. The swelling and redness is noted to be about 1.5 cm wide and about 3/4 of a centimeter high. There is a white dot noted at initial appearance. The site was warm to the touch. I did put some gentle pressure on the site. It was noted to be firm, below the surface as well. With gentle pressure, the little white spot at the opening began expressing a yellowish to creamish colored pussy drainage. Culture was taken from the sample. I continued to express about 15 mL of such drainage from this site. There was then some bloody drainage mixed in with the creamy drainage. She tolerated this quite well. The firmness of the underlying lesion decreased as the drainage continued. She tolerated this quite well. IMPRESSION/REPORT/PLAN Chest lesion that is likely infected. PLAN: We discussed care of the lesion. She should continue her hot compresses and gentle pressure after hot compressing to try to elicit continued drainage. I have provided her with some gauze to placeunder her breast to continue to absorb drainage. I recommend she avoid her tight sports bras that rub in this area. She should contact me if she does develop any fevers, chills, body aches or if the redness surrounding this site increases in size. I have sent a prescription for clindamycin for her to take as directed over the next 10 days. She should see improvement in her symptoms over that period of time. If things are not improving by the time she completes the antibiotic, she will need to be seen again. She is agreeable to this. We reviewed signs and symptoms of infection as well as signs and symptoms of reaction to antibiotic. If she is having any of these, she should contact us. At this point, she has no additional concerns or questions. She will let me know if things do not continue to improve. I will plan to give her a message on the portal when I have her culture results back as well and if we need to make any adjustments in her treatment regimen we will do so at that time. Currently she has no additional concerns or questions. She is agreeable to this plan of care. James Dao CNP/imani Electronically Signed By: JAMES DAO APRN, CNP On: 02/03/2017 10:52 AM Source: [facility] MHSDOLBEYNONRADSYS Document Id: [id number] documented in this encounter Miscellaneous Notes Miscellaneous - James Dao APRN, C.N.P. - 02/02/2017 11:36 AM CDT Ambulatory Patient Summary [address] [id number] Visit Information Name: ALFREDO OLIVEROS [facility] Number: [id number] Current Date: 02/02/2017 11:36:00 Physicians Attending Provider: JAMES DAO APRN, CNP Primary Care Provider: FORTINO BYRD MD ALFREDO OLIVEROS has been given the [...] tablet) 1 Tablet(s), Oral, once a day clindamycin (clindamycin 300 mg oral capsule) 1 cap, Oral, every 6 hours x 10 day(s) New Routed to [address] [address] clonazePAM (clonazePAM 1 mg oral tablet) 1 Tablet(s), Oral, once a day as needed for Anxiety levothyroxine (Synthroid 75 mcg (0.075 mg) oral [...] as needed Stop Taking the Following Medications: Medication list as of 02-02-17 11:36 Attention: If you have any medications at home that are not on this list, DO NOT take them until youcontact your provider for clarification. Give a copy of your medication list to your primary care provider. Update your medication list any time medications or doses are changed and carry your medication list at all times in case of emergency. Electronically Signed By: JAMES DAO APRN, CNP Signed On:02-FEB-2017 11:35:55 Your Allergies & Intolerances Substance Reaction Symptoms [...] Your Upcoming Appointments Date Time Location Provider 02/11/2017 08:45 AIYANA Bernardo MD, Radha Snowden Attention: Contact your local Clinic [...] if you dont have one. Go to [email or web address] and click on Create Your Account. Then, follow the directions to complete the online form. Youll be asked for your [facility] number which you can find at the top of this document. Your Goals/Additional instructions: Source: [facility] POWERCHART Document Id: [id number] Miscellaneous - James Dao APRN, C.N.P. - 02/02/2017 11:35 AM CDT Ambulatory Discharge Medication List [address] [id number] Visit Information Name: ALFREDO OLIVEROS [facility] Number: [id number] Current Date: 02/02/2017 11:35:59 Attending Provider: JAMES DAO APRN, CNP Primary Care Provider: FORTINO BYRD MD ALFREDO OLIVEROS has been given the [...] tablet) 1 Tablet(s), Oral, once a day clindamycin (clindamycin 300 mg oral capsule) 1 cap, Oral, every 6 hours x 10 day(s) New Routed to [address] [place] [address] clonazePAM (clonazePAM 1 mg oral tablet) 1 Tablet(s), Oral, once a day as needed for Anxiety levothyroxine (Synthroid 75 mcg (0.075 mg) oral [...] as needed Stop Taking the Following Medications: Medication list as of 02-02-17 11:35 Attention: If you have any medications at home that are not on this list, DO NOT take them until youcontact your provider for clarification. Give a copy of your medication list to your primary care provider. Update your medication list any time medications or doses are changed and carry your medication list at all times in case of emergency. Electronically Signed By: JAMES DAO APRN, CNP Signed On:02-FEB-2017 11:35:55 Additional Information: Source: [facility] POWERCHART Document Id: [id number] Miscellaneous - Cuauhtemoc Edgar, L.P.N. - 02/02/2017 11:09 AM CDT Senior Oracle Soa Developer Documentation Senior Oracle Soa Developer Documentation Entered On: 02/02/2017 11:09 CDT Performed On: 02/02/2017 11:09 CDT by CUAUHTEMOC EDGAR LPN Senior Oracle Soa Developer Documentation Exam/Procedure Performed : Breast exam CD Senior Oracle Soa Developer Present : Yes CD Senior Oracle Soa Developer Name : Krystina Edgar LPN Present in Room During Exam/Procedure : Alone CUAUHTEMOC EDGAR LPN - 02/02/2017 11:09 CDT Source: [facility] POWERCHART Document Id: [id number] CDT!6 Miscellaneous - Cuauhtemoc Edgar L.P.N. - 02/02/2017 10:33 AM CDT Adult Dismantler Intake/History Adult Dismantler Intake/History Entered On: 02/02/2017 10:35 CDT Performed On: 02/02/2017 10:33 CDT by CUAUHTEMOC EDGAR LPN Intake Chief Complaint : Painful cyst on left breast Peripheral Pulse Rate : 70 /min Respiratory Rate : 16 /min Heart Rhythm : Regular Systolic Blood Pressure : 98 mmHg Diastolic Blood Pressure : 60 mmHg NIBP Mean : 73 mmHg BP Location : Left upper extremity Blood Pressure Cuff Size : Large Height : 170 cm(Converted to: 5 ft 7 inch(es), 67 inch(es)) Actual Weight : 87.0 kg(Converted to: 191 lb 13 oz) Weight Source : Standing scale Dosing Weight Clinic : 87 kg Clinic BSA : 2.03 Body Mass Index : 30.1 kg/m2 CUAUHTEMOC EDGAR LPN - 02/02/2017 10:33 CDT General Info Languages : Serbian Is Patient Female and 13-50 no hysterectomy : No CUAUHTEMOC EDGAR LPN - 02/02/2017 10:33 CDT Subjective Pain Symptoms : No CUAUHTEMOC EDGAR LPN - 02/02/2017 10:33 CDT Dependent Habits Exposure to Tobacco Smoke : Other: never Smoking Status : Never smoker Tobacco 2A : No Tobacco Use/Currently Using : No Tobacco Use/Last 30 Days : No Tobacco Use/Last 12 months : No CUAUHTEMOC EDGAR LPN - 02/02/2017 10:33 CDT Caffeine Use Grid Caffeine Use : Current Type : Coffee Frequency : Daily Amount : 2 cups CUAUHTEMOC EDGAR LPN - 02/02/2017 10:33 CDT Recreational Drug Use Grid Drug Use : None CUAUHTEMOC EDGAR LPN - 02/02/2017 10:33 CDT Source: [facility] POWERCHART Document Id: [id number] CDT!38 documented in this encounter Plan of Treatment Upcoming Encounters Date Type Specialty Care Team Description 11/01/2022 Office Visit Urology Regina Black APRN, C.N.P. [address] [place] [phone] (Wo rk) documented as of this encounter Procedures Procedure Name Priority Date/Time Associated Diagnosis Comme nts BACTERIAL CULTURE, Routine 02/02/2017 10:55 AM Re sults for this AEROBIC CDT procedure are i n the results section. BACTERIAL CULTURE, Routine 02/02/2017 10:55 AM Re sults for this ANAEROBIC + SUSC CDT procedure a re in the results section. documented in this encounter Results (ABNORMAL) Bacterial Culture, Aerobic (02/02/2017 10:55 AM CDT) [facility] Viblio Method Time Signature Wound Culture (POSITIVE) POWERCHART HX GS No PMN's seen. POWERCHART HX GS Moderate Gram POWERCHART Negative Rods HX GS Many Gram POWERCHART Positive Cocci HXPre Reincubate POWERCHART HXPre Few Gram POWERCHART Positive Rods HXPre Further POWERCHART studies to follow HXPre GPR POWERCHART HXPre GPC POWERCHART Comment: Moderate Gram Positive Rods Moderate Gram Positive Cocci HXFinal GPR POWERCHART HXFinal GPC POWERCHART Comment: Moderate Gram Positive Rods Moderate Gram Positive Cocci unable to id and get christos results Specimen Anatomical Collection Method Collection Time Receive d Time (Source) Location / / Volume Laterality Fluid 02/02/2017 10:55 02/02/2017 AM CDT 11:19 PM CDT James Dao APRN, C.N.P. LAB MICROBIOLOGY - GENE RAL ORDERABLES Performing Organization Address City/State/ZIP Code Phon e Number POWERCHART (ABNORMAL) Bacterial Culture, Anaerobic (02/02/2017 10:55 AM CDT) Component Value [facility] Signature Anaerobe (POSITIVE) POWERCHART Identification Only HXPre Reincubate POWERCHART HXPre ANAEROBES POWERCHART HXPre ANAEROBES POWERCHART Comment: Moderate Anaerobes Gram Negative Rods Be ta lactamase positive Many Anaerobes #3 Gram Positive Cocci Be ta lactamase negative Further studies to follow HXFinal PREMEL POWERCHART HXFinal PEPMAG POWERCHART Comment: Moderate Prevotella melaninogenica #2 Be ta lactamase positive Many Finegoldia mariam Beta lactamase ne gative Specimen (Source) Anatomical Collection Method Collection Time Re ceived Time Location / / Volume Laterality Fluid 02/02/2017 10:55 AM CDT James Dao APRN, C.N.P. LAB MICROBIOLOGY - GENE RAL ORDERABLES Performing Organization Address City/State/ZIP Code Phon e Number POWERCHART documented in this encounter Visit Diagnoses Not on filedocumented in this encounter Additional Health Concerns Assessment Noted Time PHQ-9 Depression Total Score: 5 11/16/2016 8:29 AM FOOD INSPECTOR documented as of this encounter
--- OUTSIDE RECORDS SUMMARY | 2022-09-22 13:35 | XMS_ITS | Encounter Summary ---
:1955 Author Organization [facility] Address [address] [place] [address] Care Team Providers Name Role Phone Cindy Alarcon M.D. Primary Care Provider Encounter Details Date Type Department Care Team Description 2017 Hospital Encounter Department of Cindy Alarcon M.D. Routine Screening Radiology in [address] Breast Exam Mónica Leon, [facility] [address] [facility] [place] [place], [place] [address] [address] [facility] [place] [phone] (Fax) [phone] Social History Tobacco Use Types Packs/Day Years [...] How often do you attend hoahaoism or nondenominational services? Never 05/13/2019 Do you [...] at Date Recorded Female 11/29/2017 6:36 PM SPECIAL EVENTS DIRECTOR documented as of this encounter Medications at Time of Discharge Medication Sig Dispensed Refills Start Date End Date clonazePAM Take 1 tablet (1 mg 30 tablet 0 10/20/2017 (for_KlonoPIN) 1 mg total) by mouth daily tablet as needed for anxiety. HYPROMELLOSE (SYSTANE Administer 1 drop 0 016 GEL OPHT) into both eyes 2 (two) times a day. miscellaneous medical autoSV, heated 0 09/20/2014 supply misc humidifier, mask, headgear, filters and tubing. Length of Need: 99 PNV NO.95/FERROUS Take 1 tablet by 0 10/22/2016 FUM/FOLIC AC ( mouth daily. MULTIVITAMINS ORAL) levothyroxine Take 1 tablet by 0 03/11/201712/08 (SYNTHROID) 75 mcg mouth daily. tablet raNITIdine (for_ZANTAC) Take 75 mg by mouth 0 05/12/2018 75 mg tablet once as needed. documented as of this encounter Plan of Treatment Upcoming Encounters Date Type Specialty Care Team Description 11/01/2022 Office Visit Urology Regina Black, DIANN, C.N.P. [address] [phone] (Wo rk) documented as of this encounter Procedures Procedure Name Priority Date/Time Associated Comments Diagnosis BI BREAST RAD - Routine 2017 9:18 Routine Screening Result s for this SCREENING (most inpatients AM SPECIAL EVENTS DIRECTOR Breast Exam procedure a re in BILATERAL and all the results outpatients) section. documented in this encounter Results BI Breast Screening Bilateral (2017 9:18 AM SPECIAL EVENTS DIRECTOR) Anatomical Region Laterality Modality Breast Bilateral Mammography Specimen (Source) Anatomical Collection Method Collection Time Re ceived Time Location / / Volume Laterality 2017 9:20 AM SPECIAL EVENTS DIRECTOR Impressions 2017 9:21 AM SPECIAL EVENTS DIRECTOR IMPRESSION: ??Negative. RECOMMENDATION: ??Annual Screening Mammo gram ASSESSMENT: ??BI-RADS: 1: Negative. Narrative 2017 9:21 AM SPECIAL EVENTS DIRECTOR EXAM: ??BI BREAST SCREENING BILATERAL Current study was evaluated with a Compu ter Aided Detection (CAD) system. INDICATION: ??Screening mammogram. COMPARISON: ??Prior exams were available for comparison. DENSITY: ??b. There are scattered areas of fibroglandular density. FINDINGS: ??No mammographic findings of malignancy. Procedure Note Norm Meyer M.D. - 2017Forma tting of this note might be different from the original. EXAM: BI BREAST SCREENING BILATERAL Current study was evaluated with a Compu ter Aided Detection (CAD) system. INDICATION: Screening mammogram. COMPARISON: Prior exams were available f or comparison. DENSITY: b. There are scattered areas of fibroglandular density. FINDINGS: No mammographic findings of ma lignancy. IMPRESSION: Negative. RECOMMENDATION: Annual Screening Mammogr am ASSESSMENT: BI-RADS: 1: Negative. Cindy Alarcon M.D. IMG BI PROCEDURES documented in this encounter Visit Diagnoses Diagnosis Routine Screening Breast Exam documented in this encounter Additional Health Concerns Assessment Noted Time PHQ-9 Depression Total Score: 5 11/16/2016 8:29 AM SPECIAL EVENTS DIRECTOR documented as of this encounter Care Teams Wrecker Operator Relationship Specialty Start Date End Date Cindy Alarcon M.D. PCP - General 04/28/17 08/14/20 documented as of this encounter
--- OUTSIDE RECORDS SUMMARY | 2022-09-22 13:35 | XMS_ITS | Encounter Summary ---
:1955 Author Organization [facility] Address [address] [place] [id number] Care Team Providers Name Role Phone Cindy Alarcon M.D. Primary Care Provider Reason for Visit Reason Comments Communication Encounter Details Date Type Department Care Team Description 12/15/2017 Clinical Communication Department of [facility] Huy Dempsey, Communication [facility] [address] [phone] Social History Tobacco Use Types Packs/Day Years [...] er 09/12/2022 How often do you attend orthodoxy or scientologist services? Never 05/13/2019 Do you belong to any clubs or organizations such as orthodoxy N o 09/12/2022 groups, unions, fraternal or [...] or slept in a intermediate (including now)? Sex Assigned at Date Recorded Female 11/29/2017 6:36 PM CHANNEL MACHINE OPERATOR documented as of this encounter Miscellaneous Notes Telephone Encounter - Orly Dempsey L.P.N. - 12/19/2017 11:45 AM CHANNEL MACHINE OPERATOR Spoke with patient. She wants to try exercises and will let us know what she decides. NEL MACHINE OPERATOR Telephone Encounter - Gabe Rodriguez M.D. - 12/15/2017 4:27 PM CST As we discussed. Thanks. NEL MACHINE OPERATOR documented in this encounter Plan of Treatment Upcoming Encounters Date Type Specialty Care Team Description 11/01/2022 Office Visit Urology Regina Black, DIANN, C.N.P. [address] [phone] (Wo rk) documented as of this encounter Visit Diagnoses Not on filedocumented in this encounter Additional Health Concerns Assessment Noted Time PHQ-9 Depression Total Score: 5 11/16/2016 8:29 AM CHANNEL MACHINE OPERATOR documented as of this encounter Care Teams Numerical Control Machine Operator Relationship Specialty Start Date End Date Cindy Alarcon M.D. PCP - General 04/28/17 08/14/20 documented as of this encounter
--- OUTSIDE RECORDS SUMMARY | 2022-09-22 13:35 | XMS_ITS | Encounter Summary ---
:1955 Author Organization [facility] Address [address] [place] [address] Care Team Providers Name Role Phone Unavailable Primary Care Provider Unavailable Encounter Details Date Type Department Care Team Description 01/12/2017 Hospital Encounter [facility]X [facility] Cindy Alarcon M.D. [address] [facility] [address] [place] [phone] Social History Tobacco Use Types Packs/Day [...] er 09/12/2022 How often do you attend yazdanism or congregation services? Never 05/13/2019 Do you belong to any clubs or organizations such as yazdanism N o 09/12/2022 groups, unions, fraternal or [...] at Date Recorded Female 11/29/2017 6:36 PM SWING MANAGER documented as of this encounter Last Filed Vital Signs Vital Sign Reading Time Taken Comments Blood Pressure - - Pulse - - Temperature - - Respiratory Rate - - Oxygen Saturation - - Inhaled Oxygen Concentration - - Weight - - Height 170 cm (5' 6.93) 01/12/2017 7:08 AM SWING MANAGER Body Mass Index - - documented in [...] FUM/FOLIC AC ( mouth daily. MULTIVITAMINS ORAL) raNITIdine (for_ZANTAC) Take 75 mg by mouth 0 05/12/2018 75 mg tablet once as needed. documented as of this encounter Plan of Treatment Upcoming Encounters Date Type Specialty Care Team Description 11/01/2022 Office Visit Urology Regina Black APRN, C.N.P. [address] [phone] (Wo rk) documented as of this encounter Procedures Procedure Name Priority Date/Time Associated Diagnosis Comme nts LIPID PANEL, S Routine 01/12/2017 7:18 AM Results for this SWING MANAGER procedure are i n the results section. HEPATIC FUNCTION Routine 01/12/2017 7:18 AM Resul ts for this PANEL, S SWING MANAGER procedure are i n the results section. AUTOMATED Routine 01/12/2017 7:18 AM Results f or this DIFFERENTIAL, B SWING MANAGER procedure ar e in the results section. CBC WITH Routine 01/12/2017 7:18 AM Results f or this DIFFERENTIAL, B SWING MANAGER procedure ar e in the results section. BASIC METABOLIC Routine 01/12/2017 7:18 AM Result s for this PANEL, S/P SWING MANAGER procedure are i n the results section. documented in this encounter Results CBC with Differential (01/12/2017 7:18 AM SWING MANAGER) athologist Signature Leukocytes 6.2 3.4 - 10.5 POWERCHART X109L Erythrocytes 4.58 3.90 - 5.03 POWERCHART [id number] Hemoglobin 14.1 12.0 - 15.5 POWERCHART GDL Hematocrit 42.0 34.9 - 44.5 POWERCHART MCV 91.7 82.0 - 98.0 POWERCHART FL HX RDW 12.8 11.9 - 15.5 POWERCHART Platelet Count 261 150 - 450 POWERCHART X109L Specimen (Source) Anatomical Collection Method Collection Time Re ceived Time Location / / Volume Laterality Blood 01/12/2017 7:18 AM SWING MANAGER Cindy Alarcon M.D. LAB BLOOD ADD-ON Performing Organization Address City/State/ZIP Code Phon e Number POWERCHART Automated Differential (01/12/2017 7:18 AM SWING MANAGER) athologist Signature Absolute 3.41 1.70 - POWERCHART Neutrophils 7.00 109L Lymphocytes 1.88 0.90 - POWERCHART 2.90 X109L Monocytes 0.60 0.30 - POWERCHART 0.90 X109L Eosinophils 0.27 0.05 - POWERCHART 0.50 X109L Absolute 0.01 0.00 - POWERCHART Basophil 0.30 X109L Specimen Anatomical Collection Method Collection Time Receive d Time (Source) Location / / Volume Laterality Blood 01/12/2017 7:18 AM 7:18 SWING MANAGER AM SWING MANAGER Cindy Alarcon MCorinna LAB BLOOD ADD-ON Performing Organization Address City/State/ZIP Code Phon e Number POWERCHART (ABNORMAL) Lipid Panel (01/12/2017 7:18 AM SWING MANAGER) athologist Signature Cholesterol, 228 (H) <=199 MGDL POWERCHART Total Comment: 2014 National Lipid Association recommen dations for Total Cholesterol in adults ages 18 and up: Desirable <200 mg/dL Borderline high 200-239 mg/dL High 240 mg/dL 2014 National Lipid Association recommen dations for Total Cholesterol in children ages 2 to 17. Acceptable <170 mg/dL Borderline High 170-199 mg/dL High 200 mg/dL HX HDL 63 >=50 MGDL POWERCHART Comment: 2014 National Lipid Association recommen dations for HDL-C in adults ages 18 and up: Low <40 mg/dL (Men) Low <50 mg/dL (Women) 2014 National Lipid Association recommen dations for HDL-C in children ages 2 to 17. Low <40 mg/dL Borderline Low 40-45 mg/dL Acceptable >45 mg/dL Triglycerides 85 <=149 MGDL POWERCHART Comment: 2014 National Lipid Association recommen dations for Triglycerides in adults ages 18 and up: Normal <150 mg/dL Borderline High 150-199 mg/dL High 200-499 mg/dL Very High 500 mg/dL 2014 National Lipid Association recommen dations for Triglycerides in children ages 2 to 9. Acceptable <75 mg/dL Borderline High 75-99 mg/dL High 100 mg/dL 2014 National Lipid Association recommen dations for Triglycerides in children ages 10 to 17. Acceptable <90 mg/dL Borderline High 90-129 mg/dL High 130 mg/dL Trigs >400mg/dL: Triglycerides >400 mg/ dL. Calculated LDL cholesterol is not valid. Non-HDL cholesterol may be used for risk assessment when triglycerides are >400mg/dL. Calculated LDL 148 (H) <=129 MGDL POWERCHART Comment: 2013 National Lipid Association recommen dations for LDL-C in adults ages 18 and up: Desirable <100 mg/dL Above desirable 100-129 mg/dL Borderline high 130-159 mg/dL High 160-189 mg/dL Very High 190 mg/dL 2014 National Lipid Association recommen dations for LDL-C in children ages 2 to 17. Acceptable <110 mg/dL Borderline High 110-129mg/dL High 130 mg/dL LDL-C >190mg/dL: The markedly elevated LDL level is suggestive of a genetic condition such as familial hypercholesterolemia(FH) or familial defective apolipoprotein B-100 (FDB). Molecular genetic t esting for FH and FDB is available [facility]: FH/ADH Genetic Reflex Lim el (test ADHP). Acquired (non-genetic) causes of markedly increased LDL cholesterol include cholestatic liver disease due to the presence of LpX. If a genetic form of hypercholesterolemia is suspected, family studies including biochemical testing fo r lipids (total cholesterol,triglycerides, LDL cholesterol and HDL cholesterol) are recommended. ??Please contact the laboratory at or the on-line test catalog at [facility] for information about how to order these seymour ts or to speak with a genetic counselor. Further interpretation would require clinical information. Total Cholesterol/HDL Ratio 4.00 PO WERCHART HXLDL/HDL 2 POWERCHART Specimen (Source) Anatomical Collection Method Collection Time Re ceived Time Location / / Volume Laterality Blood 01/12/2017 7:18 AM SWING MANAGER Cindy Lama Pepper LAB BLOOD ADD-ON Performing Organization Address City/State/ZIP Code Phon e Number POWERCHART Hepatic Function Panel (01/12/2017 7:18 AM SWING MANAGER) Patholo gist Method Time Signature Alanine 27 7 - 45 POWERCHART Amniotransferase, LD UNITL Albumin, S 4.3 3.2 - 5.2 POWERCHART GDL Alkaline 91 35 - 105 POWERCHART Phosphatase, S UL Aspartate 20 8 - 43 POWERCHART Aminotransferase UNITL (AST), S Bilirubin, Direct, S <0.2 <=0.3 POWERCHAR T MGDL Bilirubin, Total, S 0.7 <=1.2 POWERCHART MGDL Total Protein, S 6.7 6.4 - 8.3 POWERCHART GDL Specimen (Source) Anatomical Collection Method Collection Time Re ceived Time Location / / Volume Laterality Blood 01/12/2017 7:18 AM SWING MANAGER Cindy Alarcon M.D. LAB BLOOD ADD-ON Performing Organization Address City/State/ZIP Code Phon e Number POWERCHART BMP (Basic Metabolic Panel) (01/12/2017 7:18 AM SWING MANAGER) P athologist Signature Sodium, S 141 135 - 145 POWERCHART MMOLL Potassium, S 4.6 3.6 - 5.2 POWERCHART MMOLL Chloride, S 102 98 - 107 POWERCHART MMOLL CO2 Total 28 22 - 29 POWERCHART MMOLL Comment: Reference ranges have not been established for patients that are <12 months of age. Glucose, Fasting, S 97 70 - 99 MGDL POWERCH ART BUN (Blood Urea Nitrogen), S 15 6 - 21 MGDL POWERCHART Creatinine 0.85 0.60 - 1.10 MGDL POWERCHART Calcium, Total, S 9.5 8.8 - 10.3 MGDL POWERC DIAZ Anion Gap 11 7 - 15 MMOLL POWERCHART HXeGFR (MDRD) >60 >=60 [id number] POWERCHART eGFR Black/ >60 >=60 [id number] POWERCHART Specimen (Source) Anatomical Collection Method Collection Time Re ceived Time Location / / Volume Laterality Blood 01/12/2017 7:18 AM SWING MANAGER Cindy Alarcon M.D. LAB BLOOD ADD-ON Performing Organization Address City/State/ZIP Code Phon e Number POWERCHART documented in this encounter Visit Diagnoses Not on filedocumented in this encounter Additional Health Concerns Assessment Noted Time PHQ-9 Depression Total Score: 5 11/16/2016 8:29 AM SWING MANAGER documented as of this encounter
--- OUTSIDE RECORDS SUMMARY | 2022-09-22 13:35 | XMS_ITS | Encounter Summary ---
:1955 Author Organization [facility] Address [address] [place] [address] Care Team Providers Name Role Phone Cindy Alarcon M.D. Primary Care Provider Encounter Details Date Type Department Care Team Description 11/30/2017 Telemedicine Department of Physical Medicine and Rehab Social History Tobacco Use Types Packs/Day Years [...] How often do you attend anabaptist or buddhism services? Never 05/13/2019 Do you belong to [...] at Date Recorded Female 11/29/2017 6:36 PM FOREPART REDUCER documented as of this encounter Plan of Treatment Upcoming Encounters Date Type Specialty Care Team Description 11/01/2022 Office Visit Urology Regina Black APRN, C.N.P. [address] [phone] (Wo rk) documented as of this encounter Procedures Procedure Name Priority Date/Time Associated Diagnosis Comme nts PHYSICAL MEDICINE Routine 11/30/2017 3:25 PM Resu lts for this AND REHAB IMAGE FOREPART REDUCER procedure ar e in EXAM the results section. documented in this encounter Results PHYSICAL MEDICINE AND REHAB IMAGE EXAM (11/30/2017 3:25 PM FOREPART REDUCER) Specimen (Source) Anatomical Collection Method Collection Time Re ceived Time Location / / Volume Laterality 11/30/2017 3:22 PM FOREPART REDUCER Narrative [facility] - 11/30/2017 3:56 PM FOREPART REDUCER This order has been created and auto-finalized to support the import of images acquired without order. The clini sathish documentation to support these images can be found on the encounter breanna t produced images. Provider Not In System IMG NON RAD IMAGING PROCEDUR ES Performing Organization Address City/State/ZIP Code Phon e Number [facility] NA documented in this encounter Visit Diagnoses Not on filedocumented in this encounter Additional Health Concerns Assessment Noted Time PHQ-9 Depression Total Score: 5 11/16/2016 8:29 AM FOREPART REDUCER documented as of this encounter Care Teams Special Events Driver Relationship Specialty Start Date End Date Cindy Alarcon M.D. PCP - General 04/28/17 08/14/20 documented as of this encounter
--- OUTSIDE RECORDS SUMMARY | 2022-09-22 13:35 | XMS_ITS | Encounter Summary ---
:1955 Author Organization [facility] Address [address] [place] [address] Care Team Providers Name Role Phone Unavailable Primary Care Provider Unavailable Encounter Details Date Type Department Care Team Description 02/11/2017 Hospital Encounter HX [facility] Jimi Barber M.D. [address] [facility], [address] [place], [place] [address] (Wo rk) Social History [...] er 09/12/2022 How often do you attend protestant or tenriism services? Never 05/13/2019 Do you belong to any clubs or organizations such as protestant N o 09/12/2022 groups, unions, fraternal or [...] at Date Recorded Female 11/29/2017 6:36 PM FABRIC WORKER FOREMAN documented as of this encounter Last Filed Vital Signs Vital Sign Reading Time Taken Comments Blood Pressure - - Pulse - - Temperature - - Respiratory Rate - - Oxygen Saturation - - Inhaled Oxygen Concentration - - Weight - - Height 170 cm (5' 6.93) 02/11/2017 9:07 AM CDT Body Mass Index - - [...] documented as of this encounter Progress Notes Bryn Bernardo M.D. - 02/11/2017 9:12 AM CDT Clinic Full Note CHIEF COMPLAINT/REASON FOR VISIT check Sk's on face, chest, back HISTORY OF PRESENT ILLNESS She has multiple seborrheic keratoses on her face neck chest and back that itch and burning catch on her necklaces and clothing . She is desiring as many as possible to be frozen. She also has a cyst underneath her left breast that was inflamed and she is currently on an antibiotic for that from her server cashier. She in the antibiotic tomorrow. MEDICATIONS busPIRone 10 mg oral tablet, 10 mg, 1 tab(s), PO, 3xDay clindamycin 300 mg oral capsule, 300 mg, 1 cap(s), PO, q6hr, 0 refills clonazePAM 1 mg oral tablet, 1 mg, 1 tab(s), PO, Daily, PRN, 5 refills Fish Oil oral capsule, 1 cap(s), PO, Daily Lubricant Eye Drops ophthalmic solution, 1 drop(s), PRN, Eyes(Both), 2xDay Multivitamins, PO, Daily Synthroid 75 mcg (0.075 mg) oral tablet, 75 mcg, 1 tab(s), brand approved, increasing from 0.050mg fill when requested, PO, Daily, 3 refills Vitamin D3 1000 intl units oral tablet, 1,000 IntU, 1 tab(s), PO, Daily Zantac 75, 75 mg, as needed, PO, 2xDay ALLERGIES FLUoxetine (Hives) penicillins (Hives) sulfa drugs (Rash) Vitron-C Wellbutrin (Tinnitus) PAST MEDICAL HISTORY Chronic Abnormal Pap Smear Pers Hx Anemia Iron Deficiency NOS Anxiety NOS Apnea Sleep Obstructive (ABRAHAN) Cancer Skin Basal Cell Near left axilla Cancer Thyroid Fam Hx Disease Gastroesophageal Reflux (GERD ELE) Diverticulosis Colon Elevated Liver Function Test (LFT) Fracture Shoulder Right Hernia Hiatal per EGD High Risk Medication Hyperkalemia Hyperlipidemia NOS Hyponatremia Hypothyroidism Acquired Hypothyroidism Acquired Impaired (IFG) Fasting Glucose Nodule Thyroid Right Lobe Osteopenia Rosacea NOS Thyroidectomy Partial S/P Historical Abnormal Pap Smear Pers Hx Anemia Iron Deficiency NOS Anemia NOS Dizziness Fatigue NOS Hyponatremia Shortness Of Breath (SOB) PROCEDURES/SURGICAL HISTORY Bone density scan (10/27/2015), Lobectomy of thyroid gland (06/06/2015), Echocardiogram (05/23/2015), Fine needle aspiration biopsy of thyroid (02/19/2015), Capsule endoscopy (12/03/2014), Colonoscopy (08/22/2014), Biopsy of breast (1999), History of strabismus surgery. (1985), HC DILATION/CURETTAGE DIAG/THER NON OB - 1990, HC REMOVAL OF TONSILS,<12 Y/O - 1995, REMOVAL OF BREAST LESION - left breast fibroadenoma. SOCIAL HISTORY Date Time: 02/11/2017 09:07 Tobacco: Smoking Status: Never smoker Exposure: Other: never Alcohol: Use: No Results Found Recreational Drugs: Use: None Type: No Results Found FAMILY HISTORY Father:Positive: Alcohol user; Coronary artery disease; Myocardial infarction; Stroke Mother:Positive: Emphysema; Hypertension Brother:Positive: Bladder cancer Grandmother (Maternal):Positive: Diabetes mellitus SYSTEMS REVIEW See HPI for pertinent positives- VITAL SIGNS HT: 170 cm PHYSICAL EXAMINATION General- No Acute Distress Skin- Patient gave verbal permission for us to take photos, and place them in the chart. Cyst noted underneath the left breast several cm in diameter. Several scattered Seborrheic Keratoses: stuck-on/waxy appearing, light brown papules with a cerebriform pattern and some milia-like structures consistent with seborrheic keratosis that are irritated- 14 frozen with liquid nitrogen for 10 seconds, 4% lidocaine cream or vaseline applied and a bandaid. IMPRESSION/REPORT/PLAN Keratosis Seborrheic Inflamed (SEBKER SK) Irritated Seborrheic Keratosis- These are benign lesions that are easily irritated. They can look stuck-on or waxy/rough. We discussed the area treated can be painful, and will have a scar after treatment. They should scab up and fall off after 2 weeks. Sometimes large ones need to be retreated. Cyst- If repeatedly infected she could have a general surgeon remove this. Electronically Signed By: BRYN BERNARDO MD On: 02/11/2017 10:25 AM Source: [facility] POWERCHART Document Id: [id number] documented in this encounter Miscellaneous Notes Miscellaneous - Bryn Bernardo M.D. - 02/11/2017 10:26 AM CDT Ambulatory Patient Summary [facility] [address] [place], [place] [phone] Visit Information Name: ALFREDO OLIVEROS PABLO [facility] Number: [id number] Current Date: 02/11/2017 10:26:03 Physicians Attending Provider: BRYN BERNARDO MD Primary Care Provider: FORTINO BYRD MD ALFREDO OLIVEROS PABLO has been given the following list of [...] Oral, every 6 hours x 10 day(s) clonazePAM (clonazePAM 1 mg oral tablet) 1 [...] the Following Medications: Medication list as of 02-11-17 10:26 Attention: If you have any medications at home that are not on this list, DO NOT take them until youcontact your provider for clarification. Give a copy of your medication list to your primary care provider. Update your medication list any time medications or doses are changed and carry your medication list at all times in case of emergency. Electronically Signed By: BRYN BERNARDO MD Signed On:11-FEB-2017 10:26:00 Your Allergies & Intolerances Substance Reaction Symptoms [...] High Risk Medication Active Hypothyroidism Acquired Active Keratosis Seborrheic Inflamed (SEBKER SK) Active Your Upcoming Appointments Date Time Location Provider No Appointments found Attention: Contact your local Clinic if further [...] if you dont have one. Go to [email or web address] and click on Create Your Account. Then, follow the directions to complete the online form. Youll be asked for your [facility] number which you can find at the top of this document. Your Goals/Additional instructions: Source: [facility] POWERCHART Document Id: [id number] Miscellaneous - Bryn Bernardo M.D. - 02/11/2017 10:26 AM CDT Ambulatory Discharge Medication List [address] [phone] Visit Information Name: ALFREDO OLIVEROS [facility] Number: [id number] Current Date: 02/11/2017 10:26:02 Attending Provider: BRYN BERNARDO MD Primary Care Provider: FORTINO BYRD MD SHARONDAALFREDO PABLO has been given the following list of [...] Oral, every 6 hours x 10 day(s) clonazePAM (clonazePAM 1 mg oral tablet) 1 [...] the Following Medications: Medication list as of 02-11-17 10:26 Attention: If you have any medications at home that are not on this list, DO NOT take them until youcontact your provider for clarification. Give a copy of your medication list to your primary care provider. Update your medication list any time medications or doses are changed and carry your medication list at all times in case of emergency. Electronically Signed By: BRYN BERNARDO MD Signed On:11-FEB-2017 10:26:00 Additional Information: Source: [facility] POWERCHART Document Id: [id number] Miscellaneous - Ada Riddle, L.P.N. - 02/11/2017 9:07 AM CDT Adult Assistant Professor Of Philosophy Intake/History Adult Assistant Professor Of Philosophy Intake/History Entered On: 02/11/2017 9:09 CDT Performed On: 02/11/2017 9:07 CDT by WALKER, ADA A SAFETY AND SECURITY MANAGER Intake Chief Complaint : check Sk's on face, chest, back Height : 170 cm(Converted to: 5 ft 7 inch(es), 67 inch(es)) ADA RIDDLE [facility] - 02/11/2017 9:07 CDT General Info Information Given By : Patient Languages : Pashto Is Patient Female and 13-50 no hysterectomy : No ADA RIDDLE LPN - 02/11/2017 9:07 CDT Subjective Pain Symptoms : No ADA RIDDLE [facility] - 02/11/2017 9:07 CDT Dependent Habits Exposure to Tobacco Smoke : Other: never Smoking Status : Never smoker Tobacco 2A : No Tobacco Use/Currently Using : No Tobacco Use/Last 30 Days : No Tobacco Use/Last 12 months : No ADA RIDDLE [facility] - 02/11/2017 9:07 CDT Caffeine Use Grid Caffeine Use : Current Type : Coffee Frequency : Daily Amount : 2 cups ADA RIDDLE [facility] - 02/11/2017 9:07 CDT Recreational Drug Use Grid Drug Use : None ADA RIDDLE [facility] - 02/11/2017 9:07 CDT Source: [employer] Document Id: [id number] CDT!26 documented in this encounter Plan of Treatment Upcoming Encounters Date Type Specialty Care Team Description 11/01/2022 Office Visit Urology Regina Black APRN, C.N.P. [address] [phone] (Wo rk) documented as of this encounter Visit Diagnoses Not on filedocumented in this encounter Additional Health Concerns Assessment Noted Time PHQ-9 Depression Total Score: 5 11/16/2016 8:29 AM FABRIC WORKER FOREMAN documented as of this encounter
--- OUTSIDE RECORDS SUMMARY | 2022-09-22 13:35 | XMS_ITS | Encounter Summary ---
:1955 Author Organization [facility] Address [address] [place] [address] Care Team Providers Name Role Phone Cindy Alarcon M.D. Primary Care Provider Reason for Visit Reason Comments Annual Exam Hip Pain Bilateral; left is worse Bone Density test Encounter Details Date Type Department Care Team Description 01/20/2018 Comprehensive Visit Department of Cindy Alarcon, Health Examination Abnormal Finding Adult (Primary Dx); [facility] M.DJuancho Apnea Sleep Obstructive; Internal Medicine [address] Hypothyro idism On Replacement; in [place], [address], [facility] 204 Hyperlipidemia; [facility] [place], [place] Gastroesophageal Reflux Dise ase; [address] [address] Anxiety; [facility] [phone] Osteopenia; [phone] (Fax) Pain Hip Bilateral; [phone] Pain Shoulder R ight; Primary Osteoar thritis Shoulder Right; Insomnia; Cancer Skin Bas al Cell Personal History Social History Tobacco Use Types Packs/Day Years [...] er 09/12/2022 How often do you attend shinto or yazidism services? Never 05/13/2019 Do you belong to any clubs or organizations such as shinto N o 09/12/2022 groups, unions, fraternal or [...] at Date Recorded Female 11/29/2017 6:36 PM [employer]SE [employer] documented as of this encounter Last Filed Vital Signs Vital Sign Reading Time Taken Comments Blood Pressure 113/67 01/20/2018 7:53 AM [employer] Pulse 75 01/20/2018 7:53 AM [employer] Temperature 36.6 ??C (97.9 ??F) 01/20/2018 7:53 AM [employer]URSE S[employer]OL Respiratory Rate 16 01/20/2018 7:53 AM [employer]URSE S[employer]OL Oxygen Saturation 95% 01/20/2018 7:53 AM NURSE S[employer]OL Inhaled Oxygen Concentration - - Weight 88.6 kg (195 lb 3.5 oz) 01/20/2018 7:53 AM [employer]SE S[employer]OL Height 170 cm (5' 6.93) 01/20/2018 7:53 AM NURSE SCHOOL Body Mass Index 30.64 01/20/2018 7:53 AM NURSE [employer] documented in this encounter H&P Notes Cindy Alarcon M.D. - 01/20/2018 8:15 AM CST SUBJECTIVE CHIEF COMPLAINT/REASON FOR VISIT 1. Annual physical examination. 2. Review chronic medical problems. 3. Renew medication. HISTORY OF PRESENT ILLNESS Emelyn Oliveros is a 62 y.o. female who presents to the clinic today for the above complaints. Her last physical exam was done on 01/17/2017. She had orthopedic consultation with Dr. Morton at [facility] on 11/15/2017 for bilateral shoulder pain. She received right shoulder injection with Dr. Rodriguez on 11/30/2017. She feels the injection helped only about 20%. She still has pain and limited movement in her right shoulder. She does not want surgery at this time. She also has stiffness in her left hip, especially when she sits. Patient saw Dr. Trey Ac, Sleep Medicine, at [facility] on 12/30/2017 for insomnia with obstructive sleep apnea. She had repeat sleep study on 01/12/2018. It showed significant obstructive sleep apnea. Her BiPAP was reset to CPAP minimum water pressure of 6 and maximum pressure of10. She has slept a bit better since then. She has anxiety. She follows with Dr. Odette Gaytan, Psychiatrist, in [place] every six months. She is on Buspar three times a day and Clonazepam as needed. She is due for fasting labs. She is not fasting this morning and agreed to return next week. She takes brand Synthroid for hypothyroidism with partial thyroid lobectomy and isthmectomy in 2014. There were no side effects to medication. She has history of gastroesophageal reflux disease. She takes Ranit idine as needed and about twice a month. She denies any choking or aspiration. Emelyn has history of basal cell cancer near left axilla. There were no new worrisome lesions. We discussed having full skin exam with dermatology, either with Dr. Macias or at [facility]. We discussed adult health preventive services. I reviewed and updated patient???s medical and surgical history, family history, immunizations, allergies, and medications. She had negative mammogram on 2017. Need to repeat annually. She does not do regular breast exams. She had Pap smear with , Vocational Technical Education Teacher, on 10/22/2016. It was negative. Need to repeat in 5 years. She denies any vaginal bleeding or discharge. She had history of abnormal Pap smear. She had colonoscopy complicatedwith perforation on 08/22/2014 at [facility]. It was recommended to repeat in 10 years. She has diverticulosis. There were no changes in bowel movement. She is due for DXA bone density. Her last DXA bone density was done on 10/27/2015 and showed osteopenia. She tries to walk for an hour three times a week. She denies any exertional chest pain. She has eye exams with Dr. Escobar in [place] yearly and dental cleaning with Dr. Talavera in [place] every six months. There are no additional questions, concerns, or [...] eyes 2 (two) times a day. ??? melatonin 10 mg tablet Take 10 mg by mouth at bedtime as needed. ??? miscellaneous medical supply misc autoSV, heated humidifier, mask, headgear, filters and tubing.Length of Need: 99 ??? PNV NO.95/FERROUS FUM/FOLIC AC ( MULTIVITAMINS ORAL) Take 1 tablet by mouth daily. ??? raNITIdine (for_ZANTAC) 75 mg tablet Take 75 mg by mouth once as needed. ??? SYNTHROID 75 mcg tablet Take 1 tablet (75 mcg total) by mouth every morning before breakfast. Brand Name. 90 tablet 3 No current facility-administered medications for this visit. REVIEW OF SYSTEMS Please see HPI for pertinent positives, otherwise rest of ROS negative. ALLERGIES/CONTRAINDICATIONS Allergies Allergen Reactions ??? Amoxicillin Hives [...] SULFA DRUGS ??? Tape [Adhesive Tape-Silicones] Rash PAST MEDICAL/SURGICAL HISTORY Past Medical History: Diagnosis Date ??? [...] SURGERY Left ??? COLONOSCOPY 08/22/2014 Complicated with contained small cecal perforation. Repeat in 10 years. ??? COLPOSCOPY 1998 ??? DILATATION AND CURETTAGE ??? ENDOSCOPY SMALL INTESTINE 12/03/2014 Capsule endoscopy. ??? ESOPHAGOGASTRODUODENOSCOPY 08/22/2014 Hiatal hernia and erosive gastropathy. ??? FINE NEEDLE ASPIRATION Right 02/19/2015 Cytology of the larger lower pole nodule was negative and consistent with a benign thyroid nodule, of the upper smaller nodule the cytology was called suspicious for follicular neoplasm. ??? PARTIAL LOBECTOMY OF THYROID Right 06/06/2015 Right thyroid lobectomy and isthmusectomy. ??? STRABISMUS SURGERY Bilateral 1985 ??? TONSILLECTOMY PREVENTIVE SERVICES Immunization History Administered Date(s) Administered ??? Influenza TIV (IM) 09/26/2007 ??? Influenza, Injectable, Quadrivalent 10/24/2014, 08/15/2015 ??? Influenza, Seasonal, Injectable 09/26/2007, 09/08/2010 ??? Influenza, Unspecified 09/26/2007, 09/08/2010, 10/24/2014, 08/15/2015, 10/22/2016 ??? Td (Adult), adsorbed 11/23/2000, 12/02/2006 ??? Td Preservative Free (TENIVAC, DECAVAC) 12/02/2006 ??? Tdap 06/22/2013 ??? influenza vaccine quad (FLUZONE/FLUVARIX) (36 months and older)(PF) 10/24/2014, 10/22/2016, 10/24/2017 Health Maintenance Topic Date Due ??? Lipid Panel 01/12/2018 ??? Zoster Vaccines (1 of 2 - Shingrix) 04/24/2018 (Originally 2006) ??? Pneumococcal Highest Risk Adult 19-64 (1 of 3 - PCV13) 06/26/2018 (Originally 1975) ??? TSH Level 07/22/2018 ??? Mammogram 2018 ??? Depression Screening 01/20/2019 ??? Pap/HPV Screening 10/22/2019 ??? Diabetes Screening 01/13/2020 ??? DTaP,Tdap,and Td Vaccines (2 - Td) 06/22/2023 ??? Colon Cancer Screening 08/22/2024 ??? Influenza Vaccine Completed ??? Hepatitis C Screening Completed SOCIAL HISTORY [...] Alcohol abuse Brother OBJECTIVE VITAL SIGNS Vitals: 01/20/18 0753 BP: 113/67 Pulse: 75 Temp: 36.6 ??C Resp: 16 Height: 170 cm Weight: 88.6 kg SpO2: 95% PHYSICAL EXAMINATION GENERAL: Patient is sitting. No distress. Able to talk without interruption. SKIN: No rash, bruise or nodules. HEAD: No facial rash, asymmetry or sinus tenderness. EYES: PERRLA. EOMI. No pallor, icterus or conjunctivitis. ENT: No nasal congestion, discharge or bleeding. There is no ear infection or discharge. No mastoid tenderness. Tongue is moist and midline. No oral lesions. LYMPH NODES: No cervical, supraclavicular, or axillary lymphadenopathy. THYROID: No thyromegaly. No thyroid thrill or bruit. BREASTS: No nipple discharge or retraction. Fibrous tissue noted. No palpable breast mass or tenderness. PERIPHERAL VESSELS: Good radial and pedal pulses. [...] x 3. Normal mood and affect. NEURO: Grossly nonfocal. ASSESSMENT / PLAN #1 Health Examination Abnormal Finding Adult We discussed adult health preventive services. Patient needs to eat healthy diet and exercise regularly to maintain healthy body weight and BMI. Today body mass index is 30.64 kg/m??. Today PHQ-9 is 0.Immunization record is up to date. Advised to see eye doctor once a year and dentist every six months. Need health maintenance exam every year. She is due for Pap smear with lace roller operator in 2020. #2 Apnea Sleep Obstructive She had sleep study and sleep consult at [facility]. I reviewed results and recommendations. She needs to use CPAP regularly as directed. #3 Hypothyroidism On Replacement She is euthyroid clinically. Patient was advised to continue current dose of brand Synthroid 75 mcg daily in the morning on empty stomach. Need to check TSH next week at her earliest convenience. #4 Hyperlipidemia She is due for fasting lipid profile. She will schedule this for next week. Patient was advised to continue low cholesterol, low fat diet and regular exercise. Need to check fasting lipid profile every12 months. #5 Gastroesophageal Reflux Disease It is controlled with diet and Ranitidine as needed. Patient will continue antireflux measures. #6 Anxiety It is fairly stable. Today PHQ-9 score is 0. Patient was advised to continue Buspar three times a day and Clonazepam as needed. She will follow with Dr. Odette Gaytan, Psychiatrist, every 6 months. #7 Osteopenia She needs to make sure daily calcium and vitamin D intake are adequate, 1,200 mg and 1,000 international units, respectively. Need to schedule DXA bone density at [facility] in [place]. #8 Pain Hip Bilateral We will check bilateral hips x-ray next week. Need to follow these results. 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 She should contact Dr. Rodriguez or Dr. Parker at [facility] for further evaluation and management. #11 Insomnia It is improved since specialist reset her CPAP machine. She can continue Melatonin as needed. #12 Cancer Skin Basal Cell Personal History There were no skin complaints. She agreed to schedule annual full skin exam with Dr. Macias, Agriculture Intern. #13 Renew Medications The following medications were renewed: Synthroid. #14 Today Studies Patient will have the following studies done next week: BMP, CBC, Hemoglobin A1c, HFP, Lipids, TSH, and Bilateral hips x-ray. Patient will be notified with results & recommendations. #15 Followup Visit Return to the clinic in 1 year for annual physical exam, review medical problems, and medication renewal. This document serves as a record of services personally performed by Dr. Cindy Alarcon. It was created on their behalf by Denny Newman, a trained medical technical writer. The creation of this record is based on the scribe's personal observations and the provider's statements to them. This document has been checked and approved by the attending provider. documented in this encounter Plan of Treatment Upcoming Encounters Date Type Specialty Care Team Description 11/01/2022 Office Visit Urology Regina Black APRN, C.N.P. [address] [place], [place] [phone] (Wo rk) documented as of this encounter Results S-TSH (Thyroid-Stimulating Hormone - Sensitive) (01/30/2018 7:40 AM CDT) athologist Signature TSH, Sensitive 1.7 0.3 - 4.2 01/30/2018 [facility] mIU/L 12:00 PM CDT [facility] LAB Comment: Biotin has been identified by [...] Organization Address City/State/ZIP Code Phon e Number [facility] Realty Invest[employer] [facility] [address] [place] [phone] LAB (ABNORMAL) Lipid Panel (01/30/2018 7:40 AM CDT) athologist Signature Cholesterol, 223 (H) mg/dL 01/30/2018 [facility] Total 12:00 PM CDT [facility] Comment: ----REFERENCE VALUE---- Desirable: < 200 Borderline high: 200 - 239 High: > or = 240 Triglycerides 68 mg/dL 01/30/2018 12:[address] [facility] RadPadATOHomeTouch LAB Comment: ----REFERENCE VALUE---- Normal: <150 Borderline high: 150-199 High: 200-499 Very high: > or =500 Cholesterol, HDL, S 75 >=50 mg/dL 01/30/2018 12:00 PM [facility] Calculated LDL 134 (H) mg/dL 01/30/2018 12:00 PM [facility] [place] [facility] Comment: ----REFERENCE VALUE---- Desirable: <100 Above Desirable: 100-129 Borderline high: 130-159 High: 160-189 Very high: > or =190 Cholesterol, Non-HDL, 148 mg/dL 01/30/2018 12:00 P M CDT [facility] [place] [facility] Comment: ----REFERENCE VALUE---- Desirable: <130 Above Desirable: 130-159 Borderline high: 160-189 High: 190-219 Very high: > or =220 Specimen Anatomical Collection Method Collection Time Receive d Time (Source) Location / / Volume Laterality Blood 01/30/2018 7:40 AM 8 CDT 11:01 AM CDT Cindy Alarcon M.D. LAB BLOOD ADD-ON Performing Organization Address City/State/ZIP Code Phon e Number [facility] [address] [place] [phone] LAB Hemoglobin A1c (01/30/2018 7:40 AM CDT) P athologist Signature Hemoglobin A1c, 5.3 4.2 - 5.6 01/30/2018 [facility] B % 12:[address] [facility] LAB Specimen Anatomical Collection Method Collection Time Receive d Time (Source) Location / / Volume Laterality Blood 01/30/2018 7:40 AM 8 CDT 11:05 AM CDT Cindy Alarocn M.D. LAB BLOOD ADD-ON Performing Organization Address City/[facility]/ZIP Code Phon e Number [facility] [address] [place] [phone] LAB Hepatic Function Panel (01/30/2018 7:40 AM CDT) Patholo gist Method Time Signature Bilirubin, Total, S 0.5 <=1.2 01/30/2018 [facility] mg/dL 12:00 PM T [facility] Bilirubin, Direct, S <0.2 0.0 - 0.3 01/30/2018 [facility] mg/dL 12:[address] [facility] LAB Aspartate 23 8 - 43 01/30/2018 [facility] Aminotransferase U/L 12:00 PM T [facility] Alanine 29 7 - 45 01/30/2018 [facility] Aminotransferase U/L 12:00 PM T [facility] Alkaline 84 50 - 130 01/30/2018 [facility] Phosphatase, S U/L 12:[address] [facility] Albumin, S 4.6 3.5 - 5.0 01/30/2018 [facility] g/dL 12:[address] [facility] Protein, Total, S 7.1 6.3 - 7.9 01/30/2018 [facility] g/dL 12:[address] [facility] LAB Specimen Anatomical Collection Method Collection Time Receive d Time (Source) Location / / Volume Laterality Blood 01/30/2018 7:40 AM 8 CDT 11:01 AM CDT Cindy Alarcon M.D. LAB BLOOD ADD-ON Performing Organization Address City/State/ZIP Code Phon e Number [facility] [address] [place] [phone] LAB BMP (Basic Metabolic Panel) (01/30/2018 7:40 AM CDT) P athologist Signature Potassium, S 4.6 3.6 - 5.2 01/30/2018 [facility] mmol/L 12:[address] [facility] Sodium, S 140 135 - 145 01/30/2018 [facility] mmol/L 12:[address] [facility] Chloride, S 103 98 - 107 01/30/2018 [facility] mmol/L 12:[address] [facility] Bicarbonate, S 26 22 - 29 01/30/2018 [facility] mmol/L 12:00 PM [facility] [place] [facility] Anion Gap 11 7 - 15 01/30/2018 [facility] 12:00 PM [facility] BUN (Blood Urea 11 6 - 21 01/30/2018 [facility] Nitrogen), S mg/dL 12:00 PM [facility] [place] [facility] Creatinine 0.80 0.59 - 01/30/2018 [facility] 1.04 mg/dL 12:00 PM [facility] [place] [facility] eGFR 80 >=60 01/30/2018 [facility] Non-Black/Afric mL/min/BSA 12:00 PM [facility] [email or web address] [facility]- an [place] [facility] LAB Comment: ----ADDITIONAL INFORMATION---- Estimated GFR calculated using the 2009 CKD_EPI creatinine equation. eGFR Black/ >90 >=60 mL/min/BSA 01/30/2018 12:[address] [facility] [place] [facility] Comment: ----ADDITIONAL INFORMATION---- Estimated GFR calculated using the 2009 CKD_EPI creatinine equation. Calcium, Total, S 9.6 8.9 - 10.1 mg/dL 01/30/2018 12:0 0 PM [facility] LAB Glucose, S 94 70 - 140 mg/dL 01/30/2018 12:00 PM [facility] Specimen Anatomical Collection Method Collection Time Receive d Time (Source) Location / / Volume Laterality Blood 01/30/2018 7:40 AM 8 CDT 11:01 AM CDT Cindy Alarcon M.D. LAB BLOOD ADD-ON Performing Organization Address City/State/ZIP Code Phon e Number [facility] [address], [place] [address] LAB CBC without Differential (01/30/2018 7:40 AM CDT) P athologist Signature Hemoglobin 14.4 11.6 - 01/30/2018 [facility] 15.0 g/dL 9:00 AM [facility] LAB Hematocrit 42.8 35.5 - 01/30/2018 [facility] 44.9 % 9:00 AM [facility] Erythrocytes 4.61 3.92 - 01/30/2018 [facility] 5.13 9:00 AM CDT [facility] x10(12)/L [facility] LAB MCV 92.8 78.2 - 01/30/2018 [facility] 97.9 fL 9:00 AM CDT [facility] RBC Distrib Width 12.5 12.2 - 01/30/2018 [facility] 16.1 % 9:00 AM T [facility] LAB Platelet Count 277 157 - 371 01/30/2018 [facility] x10(9)/L 9:00 AM T [facility] Leukocytes 6.2 3.4 - 9.6 01/30/2018 [facility] x10(9)/L 9:00 AM T [facility] LAB Specimen Anatomical Collection Method Collection Time Receive d Time (Source) Location / / Volume Laterality Blood 01/30/2018 7:40 AM 8 7:56 CDT AM CDT Cindy Alarcon M.D. LAB BLOOD ADD-ON Performing Organization Address City/State/ZIP Code Phon e Number [facility] [address] [place], [place] [address] [address] [employer] [facility] documented in this encounter Visit Diagnoses Diagnosis Health Examination Abnormal Finding Adul t - Primary Apnea Sleep Obstructive Hypothyroidism On Replacement Hyperlipidemia Gastroesophageal Reflux Disease Anxiety Osteopenia Pain Hip Bilateral Pain Shoulder Right Primary Osteoarthritis Shoulder Right Insomnia Cancer Skin Basal Cell Personal History documented in this encounter Care Teams Field Laboratory Operator Relationship Specialty Start Date End Date Cindy Alarcon M.D. PCP - General 04/28/17 08/14/20 documented as of this encounter
--- OUTSIDE RECORDS SUMMARY | 2022-09-22 13:35 | XMS_ITS | Encounter Summary ---
:1955 Author Organization [facility] Address [address] [place] [address] Care Team Providers Name Role Phone Cindy Alarcon M.D. Primary Care Provider Reason for Visit Reason Comments Med Refill Encounter Details Date Type Department Care Team Description 10/20/2017 Refill Department of [facility] Daina Alarcon M.D. Med Refill Internal Medicine in [facility] [address] [place] [address] [address] [facility] [place] [address] Social History Tobacco Use [...] er 09/12/2022 How often do you attend restorationist or protestant services? Never 05/13/2019 Do you belong to any clubs or organizations such as restorationist N o 09/12/2022 groups, unions, fraternal or [...] at Date Recorded Female 11/29/2017 6:36 PM POULTRY PACKER documented as of this encounter Miscellaneous Notes Telephone Encounter - Francisca Dahl L.P.N. - 10/20/2017 9:20 AM POULTRY PACKER Prescription faxed to [facility]. TRY PACKER documented in this encounter Plan of Treatment Upcoming Encounters Date Type Specialty Care Team Description 11/01/2022 Office Visit Urology Regina Black, DIANN, C.N.P. [address] [phone] (Wo rk) documented as of this encounter Visit Diagnoses Not on filedocumented in this encounter Additional Health Concerns Assessment Noted Time PHQ-9 Depression Total Score: 5 11/16/2016 8:29 AM POULTRY PACKER documented as of this encounter Care Teams Route Clerk Relationship Specialty Start Date End Date Cindy Alarcon M.D. PCP - General 04/28/17 08/14/20 documented as of this encounter
--- OUTSIDE RECORDS SUMMARY | 2022-09-22 13:35 | XMS_ITS | Encounter Summary ---
:1955 Author Organization [facility] Address [address] [place] [address] Care Team Providers Name Role Phone Unavailable Primary Care Provider Unavailable Encounter Details Date Type Department Care Team Description 02/02/2017 Hospital Encounter HX NO MAPPING Rafia Talavera A PRN, C.N.P. [address], [place] [phone] (Wo rk) Social History [...] er 09/12/2022 How often do you attend taoist or samaritan services? Never 05/13/2019 Do you belong to any clubs or organizations such as taoist N o 09/12/2022 groups, unions, fraternal or [...] at Date Recorded Female 11/29/2017 6:36 PM EMBOSSING MACHINE TENDER documented as of this encounter Medications at [...] as needed. documented as of this encounter Miscellaneous Notes Miscellaneous - Conversion, Historical Provider Ser - 02/02/2017 11:59 PM CDT Coding Summary-Paper Based CODING DATE: 02/14/[address] [facility] STATUS: * Discharged to Home or Self Care PAYOR: Medicaid ADMIT DX: REASON FOR VISIT DX: FINAL DX: PRINCIPAL: L98.9 Disorder of the skin and subcutaneous tissue, unspecified SECONDARY: PROCEDURES DOCTOR NAME DATE NOTE: The code number assigned matches the documented diagnosis and / or procedure in the patient's chart. However, the narrative phrase printed from the coding software may appear abbreviated, or result in slightly different terminology. Coded By: DEISY DOHERTY Date Saved: 02/14/2017 03:14 pm Source: [facility]ENTERClickatell Document Id: [id number] documented in this encounter Plan of Treatment Upcoming Encounters Date Type Specialty Care Team Description 11/01/2022 Office Visit Urology Regina Black APRN, C.N.P. [address] [place], [place] [phone] (Wo rk) documented as of this encounter Visit Diagnoses Not on filedocumented in this encounter Additional Health Concerns Assessment Noted Time PHQ-9 Depression Total Score: 5 11/16/2016 8:29 AM EMBOSSING MACHINE TENDER documented as of this encounter
--- OUTSIDE RECORDS SUMMARY | 2022-09-22 13:35 | XMS_ITS | Encounter Summary ---
:1955 Author Organization [facility] Address [address] [place] [address] Care Team Providers Name Role Phone Fortino Alarcon M.D. Primary Care Provider Encounter Details Date Type Department Care Team Description 07/22/2017 Hospital Encounter [facility]X [facility] Fortino Alarcon M.D. [address] [place], [address] [place] [phone] Social History Tobacco Use Types Packs/Day [...] How often do you attend religious or taoism services? Never 05/13/2019 Do you [...] a [place] [facility] (including now[place] 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 levothyroxine Take 1 tablet by 0 03/11/201712/08 (SYNTHROID) 75 mcg mouth daily. tablet raNITIdine (for_ZANTAC) Take 75 mg by mouth 0 05/12/2018 75 mg tablet once as needed. documented as of this encounter Miscellaneous Notes Miscellaneous - Fortino Alarcon M.D. - 07/24/2017 2:49 PM CDT Normal thyroid test From: FORTINO ALARCON MD To: ALFREDO OLIVEROS Cc: KEDAR Alarcon Nurse; Sent: 07/24/2017 14:49:19 CDT Subject: Normal thyroid test Actions: Notify patient of results, Notify patient [...] Results: Date Result Name Value Ref Range 07/22/2017 08:30 TSH 1.40 mIU/L (0.27 - 4.20) Source: Notice Kiosk Document Id: [id number] Miscellaneous - Fortino Alarcon M.D. - 07/24/2017 2:47 PM CDT Normal Results Letter July 24, 2017 ALFREDO OLIVEROS [address] [place] [address] [id number] Dear ALFREDO OLIVEROS, I am pleased to [...] Result Previous Result Normal Range TSH (mIU/L) 1.40 07/22/2017 1.96 01/17/2017 0.27 - 4.20 Sincerely, FORTINO ALARCON [address] [place] [address] [id number] Electronic Signature Electronically Signed By: FORTINO ALARCON MD On: July 24, 2017 This document has images extracted. Source: Notice Kiosk Document Id: [id number] documented in this encounter Plan of Treatment Upcoming Encounters Date Type Specialty Care Team Description 11/01/2022 Office Visit Urology Regina Black APRN, C.N.P. [address] [phone] (Wo rk) documented as of this encounter Procedures Procedure Name Priority Date/Time Associated Diagnosis Comme nts THYROID-STIMULATING Routine 07/22/2017 8:30 AM Re sults for this HORMONE-SENSITIVE CDT procedure are in (S-TSH) the results section. documented in this encounter Results S-TSH (Thyroid-Stimulating Hormone - Sensitive) (07/22/2017 8:30 AM CDT) P athologist Signature TSH 1.40 0.27 - 4.20 POWERCHART (Thyrotropin) MIUL Comment: Biotin has been identified by the [...] Time Location / / Volume Laterality Blood 07/22/2017 8:30 AM CDT Fortino Alarcon M.D. LAB BLOOD ADD-ON Performing Organization Address City/State/ZIP Code Phon e Number POWERCHART POWERCHART NA documented in this encounter Visit Diagnoses Not on filedocumented in this encounter Additional Health Concerns Assessment Noted Time PHQ-9 Depression Total Score: 5 11/16/2016 8:29 AM HARDWOOD FALLER documented as of this encounter Care Teams Furnace Cooler Relationship Specialty Start Date End Date Fortino Alarcon M.D. PCP - General 04/28/17 08/14/20 documented as of this encounter
--- OUTSIDE RECORDS SUMMARY | 2022-09-22 13:35 | XMS_ITS | Encounter Summary ---
:1955 Author Organization [facility] Address [address] [place] [address] Care Team Providers Name Role Phone Cindy Alarcon M.D. Primary Care Provider Reason for Visit Reason Comments Med Refill Encounter Details Date Type Department Care Team Description 12/08/2017 Refill Department of [facility] Daina Alarcon M.D. Med Refill Internal Medicine in [facility], [address] [place] [address] [address] [facility] [phone] Social History Tobacco Use [...] er 09/12/2022 How often do you attend latter-day or yarsani services? 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 Primary Provider: Karen White Name of medication: Synthroid Strength: 75 mcg Frequency: Take one tablet daily. Quantity: 90 Refills: 3 Last Refill: 09/02/2017 Pharmacy: [facility] RACTIVE VIDEO TECHNICIAN documented in this encounter Plan of Treatment Upcoming Encounters Date Type Specialty Care Team Description 11/01/2022 Office Visit Urology Regina Black, DIANN, C.N.P. [address] [phone] (Wo rk) documented as of this encounter Visit Diagnoses Not on filedocumented in this encounter Additional Health Concerns Assessment Noted Time PHQ-9 Depression Total Score: 5 11/16/2016 8:29 AM INTERACTIVE VIDEO TECHNICIAN documented as of this encounter Care Teams Supervisor Pile Driving Relationship Specialty Start Date End Date Cindy Alarcon M.D. PCP - General 04/28/17 08/14/20 documented as of this encounter
--- OUTSIDE RECORDS SUMMARY | 2022-09-22 13:35 | XMS_ITS | Encounter Summary ---
:1955 Author Organization [facility] Address [address] [place] [address] Care Team Providers Name Role Phone Unavailable Primary Care Provider Unavailable Encounter Details Date Type Department Care Team Description 10/22/2016 Hospital Encounter [facility]X [facility] Hola Cervantes M.D. [address] [place], [place] [phone] (Wo rk) Social History Tobacco Use Types Packs/Day Years Used Date Smoking Tobacco: Never Assessed Alcohol Habits Answer Date Recorded How often [...] er 09/12/2022 How often do you attend pentecostalism or hinduism services? Never 05/13/2019 Do you belong to any clubs or organizations such as pentecostalism N o 09/12/2022 groups, unions, fraternal or [...] or slept in a [facility] (including now)? Sex Assigned at Date Recorded Female 11/29/2017 6:36 PM BOTTOM WHEELER documented as of this encounter Last Filed Vital Signs Vital Sign Reading Time Taken Comments Blood Pressure - - Pulse - - Temperature - - Respiratory Rate - - Oxygen Saturation - - Inhaled Oxygen Concentration - - Weight - - Height 170 cm (5' 6.93) 10/22/2016 10:34 AM BOTTOM WHEELER Body Mass Index - - documented in [...] Visit Urology Regina Black, DIANN, C.N.P. [address] [phone] (Wo rk) documented as of this encounter Procedures Procedure Name Priority Date/Time Associated Diagnosis Comme nts BI BREAST SCREENING Routine 10/22/2016 10:52 AM R esults for this BILATERAL BOTTOM WHEELER procedure are i n the results section. documented in this encounter Results BI Breast Screening Bilateral (10/22/2016 10:52 AM BOTTOM WHEELER) Anatomical Region Laterality Modality Breast Bilateral Mammography Specimen (Source) Anatomical Collection Method Collection Time Re ceived Time Location / / Volume Laterality 10/22/2016 10:52 AM BOTTOM WHEELER Addenda Addendum by Provider, Pepper Vega 10/22/2016 10:52 AM BOTTOM WHEELER RAD^^^OW MA Mammo Screening w ??CADD 10/22/2016 10:52:26 Impressions 10/22/2016 12:44 PM BOTTOM WHEELER No mammographic findings for malignancy in either breast. Recommendations: ??I recommend a follow- up mammogram in 1 year, self breast exams at least once per month and clinical breast exam at least once per year. ??Of note, benign f indings should not deter biopsy in the setting of a palpable abno rmality. ??The false negative rate of mammography is approximately 10% . CODE: 1-NEGATIVE Appropriate letter sent. Full field digital mammography is used a nd Computer Aided Detection is performed on the digital mammogram im ages. Narrative 10/22/2016 12:44 PM BOTTOM WHEELER EXAM: OR Mammo Screening w/ CADD INDICATION: screening COMPARISON: 09/15/2015, 09/12/2014, 08/31, 08/25/2011 FINDINGS: Scattered fibroglandular densi ties both breasts. Procedure Note Norm Meyer M.D. / ProviderAlok M.D. - 03/19/2017 EXAM: OR Mammo Screening w/ CADD INDICATION: screening COMPARISON: 09/15/2015, 09/12/2014, 08/31, 08/25/2011 FINDINGS: Scattered fibroglandular densi ties both breasts. IMPRESSION: No mammographic findings for malignancy in either breast. Recommendations: I recommend a follow-up mammogram in 1 year, self breast exams at least once per month and clinical breast exam at least once per year. Of note, benign fin dings should not deter biopsy in the setting of a palpable abno rmality. The false negative rate of mammography is approximately 10% . CODE: 1-NEGATIVE Appropriate letter sent. Full field digital mammography is used a nd Computer Aided Detection is performed on the digital mammogram im ages. Mary Rogel(R), RJosi(R)(M) IMG BI PROCEDURES documented in this encounter Visit Diagnoses Not on filedocumented in this encounter Additional Health Concerns Assessment Noted Time PHQ-9 Depression Total Score: 4 01/12/2016 8:43 AM BOTTOM WHEELER documented as of this encounter
--- OUTSIDE RECORDS SUMMARY | 2022-09-22 13:36 | XMS_ITS | Encounter Summary ---
:1955 Author Organization [facility] Address [address] [place] [id number] Care Team Providers Name Role Phone Unavailable Primary Care Provider Unavailable Encounter Details Date Type Department Care Team Description 01/14/2016 Hospital Encounter [facility]X [facility] AUDIOLOGY Candida Spence Au.D. Social History Tobacco Use Types Packs/Day Years [...] How often do you attend adventist or roman catholic services? 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 Length of Need: 99 raNITIdine (for_ZANTAC) 75 Take 75 mg by mouth 0 08/12/2014 05/12/2018 mg tablet once as needed. documented as of this encounter Consult Notes Anita Spence Au.D. - 01/14/2016 2:48 PM CST [id number] CHIEF COMPLAINT/REASON FOR VISIT Tinnitus. HISTORY OF PRESENT ILLNESS Dkswj[age]tvej[age]milp-old female seen today for audiological evaluation requested by Dr. Alarcon. Emelyn reports that she has been experiencing tinnitus which she describes as a ringing type sound consistently in both ears for the past 2 months after taking Wellbutrin. Emelyn reports that after beginning Wellbutrin, 3 days later, she began experiencing tinnitus in both ears. She took the medication for 9 days and then stopped. About 2 weeks later, she did start BuSpar. She is still currently taking that. Janessanereports that her tinnitus is still present even after stopping the Wellbutrin. She does feel her anxiety was worse around the time of the tinnitus beginning. She does currently follow with a psychologist who she is seeing in a couple of weeks. She denied any known hearing loss, otalgia, otorrhea or dizziness and vertigo. She denies any significant history of noise exposure. She has not had any other medical changes. She does have sleep apnea and uses a CPAP. PHYSICAL EXAMINATION ENT: An otoscopic examination revealed generally clear ear canals prior to testing. DIAGNOSTICS Audiometry today was consistent with a normal sloping to mild sensorineural hearing loss greater in the left ear than the right at 2000 and 6000 Hz. Word recognition ability in quiet remained intact, symmetrical and good. Rollover was negative for the left ear. Tympanometry was consistent with normal middle ear pressure, equivalent volume and static admittance in both ears. Reflexes are unavailable. IMPRESSION/REPORT/PLAN 1. Tinnitus, possibly secondary to hearing loss. 2. Sensorineural hearing loss, asymmetrical, mild high-frequency. PLAN: Possible causes of tinnitus, effective masking techniques and exacerbating factors of tinnituswere discussed with Emelyn. She reports that she has been on Wellbutrin in the past and did not have any tinnitus issues at that time. Unlikely at this point that it is medication related as she has been off the Wellbutrin for some time now. May be more in part due to hearing loss exacerbated with her anxiety. Results and recommendations were discussed with the patient. Follow up in 6 months to a yearfor repeat hearing testing or sooner if any changes are noted given the asymmetry. Results and recommendations were discussed with the patient. Hoa Lomeli/imani Electronically Signed By: ANITA SPENCE CCC-A On: 01/28/2016 01:58 PM Modified by and Electronically Signed by: ANITA SPENCE CCC-A On: 01/28/2016 01:58 PM Source: [facility] MHSDOLBEYNONRADSYS Document Id: [id number] documented in this encounter Plan of Treatment Upcoming Encounters Date Type Specialty Care Team Description 11/01/2022 Office Visit Urology Regina Black APRN, C.N.P. [address] [place] [phone] (Wo rk) documented as of this encounter Visit Diagnoses Not on filedocumented in this encounter Additional Health Concerns Assessment Noted Time PHQ-9 Depression Total Score: 4 01/12/2016 8:43 AM ENVIRONMENTAL SAMPLING TECHNICIAN documented as of this encounter
--- OUTSIDE RECORDS SUMMARY | 2022-09-22 13:36 | XMS_ITS | Encounter Summary ---
:1955 Author Organization [facility] Address [address] [place] [address] Care Team Providers Name Role Phone Unavailable Primary Care Provider Unavailable Encounter Details Date Type Department Care Team Description 02/24/2016 Hospital Encounter HX [facility] Cindy Alarcon M.D. [address] [facility], [place] [address] [place] [phone] Social History Tobacco Use Types Packs/Day [...] How often do you attend religious or mu-ism services? Never 05/13/2019 Do you [...] slept in a skilled nursing (including now)? 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 miscellaneous medical autoSV, heated 0 09/20/2014 supply misc humidifier, mask, headgear, filters and tubing. Length of Need: 99 raNITIdine (for_ZANTAC) Take 75 mg by mouth 0 05/12/2018 75 mg tablet once as needed. documented as of this encounter Miscellaneous Notes Miscellaneous - Ayana Esquivel R.N. - 02/25/2016 10:47 AM CDT Need Synthroid brand Document Contains Addenda Addendum by RIGO MÁRQUEZ MD on February 25, 2016 12:02:18 CDT done From: AYANA ESQUIVEL RN (OW Nurse Line) To: RIGO MÁRQUEZ MD; Sent: 02/25/2016 10:47:20 CDT Subject: Need Synthroid brand From: ALFREDO OLIVEROS To: Nurse Line Sent: 02/25/2016 9:51:22 AM ([facility]-06:00) Central Time ([place] & [place]) Subject: RE: Also, please order Synthroid brand. We just went through a process to get my insurance to pay for the branded drug. Thank you. From: RIGO MÁRQUEZ MD To: ALFREDO OLIVEROS Sent: 02/25/2016 08:48:37 CDT Your TSH shows your overall replacement is in the middle of normal. If you would like to stop the T3we could look at increasing the levothyroxine (T4) to 0.050mg daily. Let me know if you would like me to send a 0.050mg prescription. Dr. Márquez Results: Date Result Name Value Ref Range 02/24/2016 13:28 TSH 2.10 mIU/L (0.27 - 4.20) Source: [facility] POWERCHART Document Id: [id number] Electronically signed by Harpal, [facility] Environmental Remediation Specialist [id number] at 04/09/2017 7:59 PM CDT Miscellaneous - Karine Reid RDamián - 02/25/2016 9:26 AM CDT RE: Document Contains Addenda Addendum by DANILO HILL LPN on February 25, 2016 10:30:45 CDT From: DANILO HILL LPN ( Bernardo Nurse) To: ALFREDO OLIVEROS Sent: 02/25/2016 10:30:45 CDT Subject: FW: Addendum by RIGO MÁRQUEZ MD on February 25, 2016 10:22:25 CDT From: RIGO MÁRQUEZ MD To: Bernardo Nurse; Sent: 02/25/2016 10:22:25 CDT Subject: RE: Great, I have sent the script. Addendum by DANILO HILL LPN on February 25, 2016 10:18:26 CDT From: DANILO HILL LPN ( Bernardo Nurse) To: RIGO MÁRQUEZ MD; Sent: 02/25/2016 10:18:26 CDT Subject: FW: Addendum by KARINE REID RN on February 25, 2016 09:27:09 CDT From: KARINE REID RN ( Nurse Line) To: MARITA Márquez Nurse; Sent: 02/25/2016 09:27:09 CDT Subject: FW: From: ALFREDO OLIVEROS To: Nurse Line Sent: 02/25/2016 9:14:33 AM ([facility]-06:00) Central Time ([place] & [place]) Subject: RE: Yes, please increase the Synthroid and I'll stop the liothyronine. Thank you. From: RIGO MÁRQUEZ MD To: ALFREDO OLIVEROS Sent: 02/25/2016 08:48:37 CDT Your TSH shows your overall replacement is in the middle of normal. If you would like to stop the T3 we could look at increasing the levothyroxine (T4) to 0.050mg daily. Let me know if you would like me to send a 0.050mg prescription. Dr. Márquez Results: Date Result Name Value Ref Range 02/24/2016 13:28 TSH 2.10 mIU/L (0.27 - 4.20) Source: [facility] POWERCHART Document Id: [id number] Electronically signed by Conversion, [facility] Environmental Remediation Specialist [id number] at 04/09/2017 7:59 PM CDT Miscellaneous - Rigo Márquez M.D. - 02/25/2016 8:48 AM CDT From: RIGO MÁRQUEZ MD To: ALFREDO OLIVEROS Sent: 02/25/2016 08:48:37 CDT Your TSH shows your overall replacement is in the middle of normal. If you would like to stop the T3we could look at increasing the levothyroxine (T4) to 0.050mg daily. Let me know if you would like me to send a 0.050mg prescription. Dr. Márquez Results: Date Result Name Value Ref Range 02/24/2016 13:28 TSH 2.10 mIU/L (0.27 - 4.20) Source: [facility] POWERCHART Document Id: [id number] Electronically signed by Conversion, [facility] Environmental Remediation Specialist [id number] at 04/09/2017 7:59 PM CDT documented in this encounter Plan of Treatment Upcoming Encounters Date Type Specialty Care Team Description 11/01/2022 Office Visit Urology Regina Black APRN, C.N.P. [address] [place], [place] [phone] (Wo rk) documented as of this encounter Procedures Procedure Name Priority Date/Time Associated Diagnosis Comme nts THYROID-STIMULATING Routine 02/24/2016 1:28 PM Re sults for this HORMONE-SENSITIVE CDT procedure are in (S-TSH) the results section. documented in this encounter Results Thyroid-Stimulating Hormone-Sensitive (s-TSH) (02/24/2016 1:28 PM CDT) P athologist Signature TSH 2.10 0.27 - 4.20 POWERCHART (Thyrotropin) MIUL Specimen (Source) Anatomical Collection Method Collection Time Re ceived Time Location / / Volume Laterality Blood 02/24/2016 1:28 PM CDT Rigo Márquez M.D. 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
--- OUTSIDE RECORDS SUMMARY | 2022-09-22 13:36 | XMS_ITS | Encounter Summary ---
:1955 Author Organization [facility] Address [address] [place] [address] Care Team Providers Name Role Phone Unavailable Primary Care Provider Unavailable Encounter Details Date Type Department Care Team Description 05/24/2016 Hospital Encounter HX [facility] Fortino Alarcon M.D. [address] [facility], [facility] [address] [phone] Social History Tobacco Use Types Packs/Day [...] How often do you attend mu-ism or islam services? 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 - 05/29/2016 7:26 PM CDT Lab 05/24/2016 From: FORTINO ALARCON MD To: ALFREDO OLIVEROS Cc: KEDAR Alarcon Nurse; Sent: 05/29/2016 19:26:34 CDT Subject: Lab 05/24/2016 Actions: Notify patient of results Dear Alfredo, Your tests for iron studies and blood counts are normal. Please follow up with us as we discussed during your visit or sooner if you have any concerns. If you have questions or concerns, please do not hesitate to call our office. Dr. Alarcon Results: Date Result Name Value Ref Range 05/24/2016 10:52 Iron 76 mcg/dL (35 - 145) 05/24/2016 10:52 TIBC 288 UG/DL (250 - 400) 05/24/2016 10:52 Iron Sat 26.4 % (13.9 - 50.1) 05/24/2016 10:52 Ferritin Lvl 26.6 ng/mL (11.0 - 307.0) 05/24/2016 10:52 Hgb 13.8 g/dL (12.0 - 15.5) 05/24/2016 10:52 Hct 40.8 % (34.9 - 44.5) 05/24/2016 10:52 WBC 6.4 x10(9)/L (3.4 - 10.5) 05/24/2016 10:52 RBC 4.40 x10(12)/L (3.90 - 5.03) 05/24/2016 10:52 MCV 92.7 fL (82.0 - 98.0) 05/24/2016 10:52 RDW 12.4 % (11.9 - 15.5) 05/24/2016 10:52 Platelet 274 x10(9)/L (150 - 450) 05/24/2016 10:52 Neutro Absolute 3.23 10(9)/L (1.70 - 7.00) 05/24/2016 10:52 Lymph Absolute 2.46 x10(9)/L (0.90 - 2.90) 05/24/2016 10:52 Cross Absolute 0.44 x10(9)/L (0.30 - 0.90) 05/24/2016 10:52 Eos Absolute 0.25 x10(9)/L (0.05 - 0.50) 05/24/2016 10:52 Baso Absolute 0.02 x10(9)/L (0.00 - 0.30) Source: [facility] POWERCHART Document Id: [id number] documented in this encounter Plan of Treatment Upcoming Encounters Date Type Specialty Care Team Description 11/01/2022 Office Visit Urology Regina Black, DIANN, C.N.P. [address] [place] [address] [phone] (Wo rk) documented as of this encounter Procedures Procedure Name Priority Date/Time Associated Diagnosis Comme nts AUTOMATED Routine 05/24/2016 10:52 AM Results for this DIFFERENTIAL, B CDT procedure ar e in the results section. IRON AND TOT Routine 05/24/2016 10:52 AM Results for this IRON-BINDING CDT procedure are i n CAPACITY, S/P the results section. CBC WITH Routine 05/24/2016 10:52 AM Results for this DIFFERENTIAL, B CDT procedure ar e in the results section. FERRITIN, S Routine 05/24/2016 10:52 AM Results for this CDT procedure are i n the results section. documented in this encounter Results Automated Differential (05/24/2016 10:52 AM CDT) P athologist Signature Absolute 3.23 1.70 - POWERCHART Neutrophils 7.00 109L Lymphocytes 2.46 0.90 - POWERCHART 2.90 X109L Monocytes 0.44 0.30 - POWERCHART 0.90 X109L Eosinophils 0.25 0.05 - POWERCHART 0.50 X109L Absolute 0.02 0.00 - POWERCHART Basophil 0.30 X109L Specimen Anatomical Collection Method Collection Time Receive d Time (Source) Location / / Volume Laterality Blood 05/24/2016 10:52 05/24/2016 AM CDT 10:52 AM CDT [facility].Aysha. LAB BLOOD ADD-ON Performing Organization Address City/State/ZIP Code Phon e Number POWERCHART CBC with Differential (05/24/2016 10:52 AM CDT) P athologist Signature Leukocytes 6.4 3.4 - 10.5 POWERCHART X109L Erythrocytes 4.40 3.90 - 5.03 POWERCHART O4391V Hemoglobin 13.8 12.0 - 15.5 POWERCHART GDL Hematocrit 40.8 34.9 - 44.5 POWERCHART MCV 92.7 82.0 - 98.0 POWERCHART FL Platelet Count 274 150 - 450 POWERCHART X109L HX RDW 12.4 11.9 - 15.5 POWERCHART Specimen (Source) Anatomical Collection Method Collection Time Re ceived Time Location / / Volume Laterality Blood 05/24/2016 10:52 AM CDT [facility] M.D. LAB BLOOD ADD-ON Performing Organization Address City/State/ZIP Code Phon e Number POWERCHART Ferritin (05/24/2016 10:52 AM CDT) P athologist Signature Ferritin, S 26.6 11.0 - POWERCHART 307.0 NGML Specimen (Source) Anatomical Collection Method Collection Time Re ceived Time Location / / Volume Laterality Blood 05/24/2016 10:52 AM CDT Fortino Alarcon M.D. LAB BLOOD ADD-ON Performing Organization Address City/State/ZIP Code Phon e Number POWERCHART Iron and Total Iron-Binding Capacity (05/24/2016 10:52 AM CDT) P athologist Signature Iron 76 35 - 145 POWERCHART MCGDL Total Iron 288 250 - 400 POWERCHART Binding Capacity UGDL Percent 26.4 13.9 - POWERCHART Saturation 50.1 Specimen (Source) Anatomical Collection Method Collection Time Re ceived Time Location / / Volume Laterality Blood 05/24/2016 10:52 AM CDT Fortino Alarcon M.D. LAB BLOOD ADD-ON Performing Organization Address City/State/[facility] Code Phon e Number POWERCHART documented in this encounter Visit Diagnoses Not on filedocumented in this encounter Additional Health Concerns Assessment Noted Time PHQ-9 Depression Total Score: 4 01/12/2016 8:43 AM FINANCIAL REPRESENTATIVE documented as of this encounter
--- OUTSIDE RECORDS SUMMARY | 2022-09-22 13:36 | XMS_ITS | Encounter Summary ---
:1955 Author Organization [facility] Address [address] [place] [address] Care Team Providers Name Role Phone Unavailable Primary Care Provider Unavailable Encounter Details Date Type Department Care Team Description 06/14/2016 Hospital Encounter HX [facility] Stephen Rodriguez M.D. [address] [place] [address], [address] [place] [address] (Wo rk) Social History Tobacco Use Types [...] How often do you attend zoroastrianism or church services? Never 05/13/2019 Do you belong to [...] or slept in a alf (including now)? 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 - 06/14/2016 9:49 AM CDT [id number] CHIEF COMPLAINT/REASON FOR VISIT Follow up right shoulder pain. HISTORY OF PRESENT ILLNESS Ms. Oliveros returns today. She had an MRI performed of her right shoulder on June 09 in [place].I reviewed the images with her in detail today. Significant findings include broad-based area of avascular necrosis of the superior medial aspect of the humeral head including a 2.5 cm segment area of cortical fracture and mild cortical surface flattening. There is narrowing of the acromiohumeral interval with moderate subacromial/subdeltoid bursa inflammation. There is mild to moderate supraspinatus, infraspinatus and subscapularis tendinosis and biceps tendinosis. There is also a glenohumeral joint effusion and generalized grade 2, with scattered areas of superimposed grade 3, chondromalacia of the glenohumeral joint. Ms. Gays symptoms have not changed since I saw her just previous to the MRI. PHYSICAL EXAMINATION None performed today. IMPRESSION/REPORT/PLAN 1. Right shoulder pain. 2. History of right proximal humerus fracture. 3. MRI evidence for avascular necrosis involving the superior medial aspect of the humeral head. 4. Right otator cuff tendinopathy. 5. Right glenohumeral degenerative joint disease. I feel that Ms. Gays symptoms are multifactorial. She does have evidence for rotator cuff tendinopathy as well as a fairly significant subacromial bursitis present on her MRI which would explain the symptoms she is experiencing. However, there is a fairly significant area of avascular necrosis involving the humeral head with her history of right proximal humerus fracture and she has known degenerative changes in her glenohumeral joint. PLAN: With Ms. aGys symptoms and the findings on the MRI of her avascular necrosis, and with herprevious humerus fracture, I am going have her see Dr. Smiley, Orthopedic Surgeon, to obtain his opinion obtained with respect to her symptoms. We did discuss the possibility of proceeding with an ultrasound- guided right subacromial/subdeltoid bursa corticosteroid injection but, with the area of avascular necrosis, I would like to obtain Dr. Smiley's opinion. Ms. Oliveros voiced agreement and understanding with this plan. Charlie Rodriguez M.D./imani Electronically Signed By: CHARLIE RODRIGUEZ MD On: 06/16/2016 03:48 PM Modified by and Electronically Signed by: CHARLIE RODRIGUEZ MD On: 06/16/2016 03:48 PM Source: [facility] MHSDOLBEYNONRADSYS Document Id: [id number] documented in this encounter Miscellaneous Notes Telephone Encounter - Conversion, Historical Provider Ser - 06/14/2016 10:51 AM CDT *Phone Message/Margie Document Contains Addenda Addendum by RADHA MORA on June 14, 2016 18:13:19 CDT patient scheduled with margie at [facility] on 06/28 at 930am check in Addendum by TONY SIMLEY MD on June 14, 2016 17:36:18 CDT From: TONY SMILEY MD To: Orthopedic Nurse; Sent: 06/14/2016 17:36:18 CDT Subject: RE: *Phone Message/Margie We can see anytime in FBO Addendum by RUMA DOBBS LPN on June 14, 2016 15:30:58 CDT From: RUMA DOBBS LPN ( Orthopedic Nurse) To: TONY SMILEY MD; Sent: 06/14/2016 15:30:58 CDT Subject: FW: *Phone Message/Margie From: RADHA MORA ([address] Sheltered Workshop Worker) To: Orthopedic Nurse; Sent: 06/14/2016 10:51:25 CDT Subject: *Phone Message/Margie Caller is: ( ) Patient ( ) Mother ( ) Father ( ) Spouse ( ) Daughter ( ) Son ( ) Pharmacy ( ) Other: Physician: Margie Patient MRN #: Reason for Call: Message: s: patient calling to make an appt. b: Needs to be seen for previous fx, referred from Dr. Rodriguez to see Margie/[place] for right humerus avascular necrosis. When and where to schedule her? [facility] patient a: r: Alfredo at [phone] Advice/Action: Source used: ( ) Verbalizes understanding of instructions ( ) Instructed to call back if symptoms worsen or do not resolve ( ) Refused to see provider ( ) Appointment Scheduled ( ) OK to leave message on voice mail ( ) Patient told to expect return call: ( ) today ( ) tomorrow ( ) next work day ( ) Patient's email ( ) Patient told physician out of office, will call upon return call on ( ) ( ) Patient told physician out of office, routed to other physician ( ) Other ( ) Call back telephone number ( ) Call back cell phone number ( ) Source: [facility] POWERCHART Document Id: [id number] Miscellaneous - Charlie Rodriguez M.D. - 06/14/2016 10:46 AM CDT Ambulatory Patient Summary [address] [id number] Visit Information Name: ALFREDO OLIVEROS [facility] Number: [id number] Current Date: 06/14/2016 10:46:13 Physicians Attending Provider: CHARLIE RODRIGUEZ MD Primary Care Provider: FORTINO BYRD MD [...] Indications/Special Instructions/Comments/Notes for Patient Medication Changes/Routing busPIRone (BuSpar 5 mg oral tablet) 1 Tablet(s), Oral, two times a day cholecalciferol (Vitamin D3 1000 intl units oral tablet) 1 Tablet(s), Oral, once a day clonazePAM (clonazePAM 1 mg oral tablet) 1 Tablet(s), Oral, three times a day doxepin (doxepin 25 mg oral capsule) 1 cap, Oral, once a day (at bedtime) levothyroxine (Synthroid 75 mcg (0.075 mg) oral tablet) 1 Tablet(s), Oral, once a day brand approved, increasing from 0.050mg fill when requested ocular lubricant (Lubricant Eye Drops ophthalmic solution) 1 Drops, Eyes(Both), two times a day PRN omega-3 polyunsaturated fatty acids (Fish Oil oral capsule) 1 cap, Oral, once a day ranitidine (Zantac 75) 75 mg, Oral, two times a day as needed Stop Taking the Following Medications: Medication list as of 06-14-16 10:46 Attention: If you have any medications at home that are not on this list, DO NOT take them until youcontact your provider for clarification. Give a copy of your medication list to your primary care provider. Update your medication list any time medications or doses are changed and carry your medication list at all times in case of emergency. Electronically Signed By: CHARLIE RODRIGUEZ MD Signed On:14-JUN-2016 10:46:02 Your Allergies & Intolerances Substance Reaction Symptoms [...] Your Upcoming Appointments Date Time Location Provider 01/13/2017 08:00 [facility] 01/17/2017 09:15 [facility] Dorian RIOJAS, Phunt Attention: Contact your local Clinic if further [...] if you dont have one. Go to [email or web address] and click on Create Your Account. Then, follow the directions to complete the online form. Youll be asked for your [facility] number which you can find at the top of this document. Your Goals/Additional instructions: Source: [facility] POWERCHART Document Id: [id number] Miscellaneous - Charlie Rodriguez M.D. - 06/14/2016 10:46 AM CDT Ambulatory Discharge Medication List [address] [id number] Visit Information Name: ALFREDO OLIVEROS [facility] Number: [id number] Visit Date: 06/14/2016 10:46:12 Attending Provider: CHARLIE RODRIGUEZ MD Primary Care Provider: FORTINO BYRD MD [...] Indications/Special Instructions/Comments/Notes for Patient Medication Changes/Routing busPIRone (BuSpar 5 mg oral tablet) 1 Tablet(s), Oral, two times a day cholecalciferol (Vitamin D3 1000 intl units oral tablet) 1 Tablet(s), Oral, once a day clonazePAM (clonazePAM 1 mg oral tablet) 1 Tablet(s), Oral, three times a day doxepin (doxepin 25 mg oral capsule) 1 cap, Oral, once a day (at bedtime) levothyroxine (Synthroid 75 mcg (0.075 mg) oral tablet) 1 Tablet(s), Oral, once a day brand approved, increasing from 0.050mg fill when requested ocular lubricant (Lubricant Eye Drops ophthalmic solution) 1 Drops, Eyes(Both), two times a day PRN omega-3 polyunsaturated fatty acids (Fish Oil oral capsule) 1 cap, Oral, once a day ranitidine (Zantac 75) 75 mg, Oral, two times a day as needed Stop Taking the Following Medications: Medication list as of 06-14-16 10:46 Attention: If you have any medications at home that are not on this list, DO NOT take them until youcontact your provider for clarification. Give a copy of your medication list to your primary care provider. Update your medication list any time medications or doses are changed and carry your medication list at all times in case of emergency. Electronically Signed By: CHARLIE RODRIGUEZ MD Signed On:14-JUN-2016 10:46:02 Additional Information: Source: [facility] POWERCHART Document Id: [id number] Miscellaneous - Ruma Napoles, LJuanchoPJuanchoN. - 06/14/2016 10:11 AM CDT Adult Senior Gis Analyst Intake/History Adult Senior Gis Analyst Intake/History Entered On: 06/14/2016 10:13 CDT Performed On: 06/14/2016 10:11 CDT by RUMA NAPOLES LPN Intake Systolic Blood Pressure : 104 mmHg Diastolic Blood Pressure : 60 mmHg NIBP Mean : 75 mmHg BP Location : Left upper extremity Blood Pressure Cuff Size : Regular Height : 170 cm(Converted to: 5 ft 7 inch(es), 67 inch(es)) Actual Weight : 90.2 kg(Converted to: 198 lb 14 oz) Weight Source : Standing scale Dosing Weight Clinic : 90.2 kg Clinic BSA : 2.06 Body Mass Index : 31.21 kg/m2 RUMA NAPOLES [facility] - 06/14/2016 10:11 CDT General Info Languages : Bruneian Is Patient Female and 13-50 no hysterectomy : No RUMA NAPOLES [facility] - 06/14/2016 10:11 CDT Subjective Pain Symptoms : RUMA Cort[place] [facility] - 06/14/2016 10:11 CDT Dependent Habits Exposure to Tobacco Smoke : Other: never Smoking Status : Never smoker Tobacco 2A : No Tobacco Use/Currently Using : No Tobacco Use/Last 30 Days : No Tobacco Use/Last 12 months : No 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
--- OUTSIDE RECORDS SUMMARY | 2022-09-22 13:36 | XMS_ITS | Encounter Summary ---
:1955 Author Organization [facility] Address [address] [place] [address] Care Team Providers Name Role Phone Unavailable Primary Care Provider Unavailable Encounter Details Date Type Department Care Team Description 01/26/2016 Hospital Encounter HX [facility] Fortino Alarcon M.D. [address] [facility], [facility] [address] [phone] Social History Tobacco Use Types Packs/Day [...] How often do you attend jewish or faith services? 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 - 01/27/2016 2:51 PM CDT FW: Blood tests 01/26/2016 From: MARGARITA CAMACHO LPN ( Internal Medicine Nurse) To: FORTINO ALARCON MD; Sent: 01/27/2016 14:51:02 CDT Subject: FW: Blood tests 01/26/2016 From: ALFREDO OLIVEROS To: Internal Medicine Nurse Sent: 01/26/2016 9:33:13 PM ([facility]-06:00) Central Time ([place] & [place]) Subject: RE: Blood tests 01/26/2016 Let's increase the Synthroid and leave the liothyronine dosage as-is. Please let me know when you've sent new order to [facility]. I'll make an appt for blood draw for 2 months after I start new dose. Thanks! Alfredo From: FORTINO ALARCON MD To: KEDAR Alarcon Nurse; ALFREDO OLIVEROS Sent: 01/26/2016 18:51:53 CDT ! Subject: Blood tests 01/26/2016 Actions: Notify patient of results, Notify patient of Future Order Please call Alfredo. Tests for electrolytes, fasting glucose and kidney function are normal. Cholesterol improved from last time. Need to continue low cholesterol and low fat diet with exercise. TSH slightly high and free T4 is slightly low. We can increase Synthroid dose or she can take Liothyronine one tablet(25 mcg) instead of 0.5 tablet daily. We need to recheck TSH again 2 months after changing the dose. Results: Date Result Name Ind Value Ref Range 01/26/2016 08:19 Sodium Lvl 141 mmol/L (135 - 145) 01/26/2016 08:19 Potassium Lvl 4.6 mmol/L (3.6 - 5.2) 01/26/2016 08:19 Chloride 106 mmol/L (98 - 107) 01/26/2016 08:19 CO2 27 mmol/L (22 - 29) 01/26/2016 08:19 AGAP 8 mmol/L (7 - 15) 01/26/2016 08:19 Glucose Fasting 94 mg/dL (70 - 99) 01/26/2016 08:19 Creatinine 0.7 mg/dL (0.6 - 1.1) 01/26/2016 08:19 EGFR (MDRD) >60 mL/min/1.73m2 (>=60 - ) 01/26/2016 08:19 EGFR (MDRD) >60 mL/min/1.73m2 (>=60 - ) 01/26/2016 08:19 BUN 12 mg/dL (6 - 21) 01/26/2016 08:19 Calcium Lvl 9.1 mg/dL (8.0 - 10.3) 01/26/2016 08:19 Cholesterol (H) 212 mg/dL ( - <=199) 01/26/2016 08:19 Trig 65 mg/dL ( - <=149) 01/26/2016 08:19 HDL 62 mg/dL (>=50 - ) 01/26/2016 08:19 LDL Calculated (H) 137 mg/dL ( - <=129) 01/26/2016 08:19 Chol/HDL Ratio 3.42 01/26/2016 08:19 LDL/HDL 2 01/26/2016 08:19 TSH (H) 5.15 mIU/L (0.27 - 4.20) 01/26/2016 08:19 T4 Free (L) 0.73 ng/dL (0.90 - 1.70) Source: [facility] POWERCHART Document Id: [id number] Electronically signed by Harpal [facility] Business Loan Processor [id number] at 04/09/2017 5:07 PM CDT Miscellaneous - Fortino Alarcon M.D. - 01/26/2016 6:51 PM CDT Blood tests 01/26/2016 Document Contains Addenda Addendum by MARGARITA CAMACHO LPN on February 02, 2016 08:42:41 CDT From: MARGARITA CAMACHO LPN ([facility] Nurse) To: ALFREDO OLIVEROS Sent: 02/02/2016 08:42:41 CDT Subject: FW: Blood tests 01/26/2016 Addendum by FORTINO ALARCON MD on February 01, 2016 15:25:58 CDT From: FORTINO ALARCON MD To: [facility] Nurse; Sent: 02/01/2016 15:25:58 CDT Subject: RE: Blood tests 01/26/2016 Actions: Notify patient of Future Order Please see below for new Rx. Because she takes 2 different thyroid medications, I increase Synthroiddose a little bit. Her free T3 was slightly high. It is better to take Synthroid alone, not with Liothyronine. We will recheck TSH in 2 months. Order is in EHR. Addendum by FORTINO ALARCON MD on February 01, 2016 15:23:01 CDT Submitted: Order:levothyroxine (Synthroid 25 mcg (0.025 mg) oral tablet) 1.5 tab(s) PO Daily AM Dose increased 02/01/2016. On empty stomach. Qty: 150 tab(s) Refills: 3 CANDIDO Route To Pharmacy - [facility] Signed by FORTINO ALARCON MD Addendum by MARGARITA CAMACHO LPN on January 27, 2016 09:00:55 CDT From: MARGARITA CAMACHO LPN ([facility] Nurse) To: FORTINO ALARCON MD; Sent: 01/27/2016 09:00:55 CDT Subject: FW: Blood tests 01/26/2016 Addendum by MARGARITA CAMACHO LPN on January 27, 2016 09:00:48 CDT Called and spoke with patient. Patient would like to increase her Synthroid. Patient is aware Dr. Alarcon is out of the office until Tuesday02/02/2016 and is okay to wait until then for a response. From: FORTINO ALARCON MD To: [facility] Nurse; ALFREDO OLIVEROS Sent: 01/26/2016 18:51:53 CDT ! Subject: Blood tests 01/26/2016 Actions: Notify patient of results, Notify patient of Future Order Please call Alfredo. Tests for electrolytes, fasting glucose and kidney function are normal. Cholesterol improved from last time. Need to continue low cholesterol and low fat diet with exercise. TSH slightly high and free T4 is slightly low. We can increase Synthroid dose or she can take Liothyronine one tablet(25 mcg) instead of 0.5 tablet daily. We need to recheck TSH again 2 months after changing the dose. Results: Date Result Name Ind Value Ref Range 01/26/2016 08:19 Sodium Lvl 141 mmol/L (135 - 145) 01/26/2016 08:19 Potassium Lvl 4.6 mmol/L (3.6 - 5.2) 01/26/2016 08:19 Chloride 106 mmol/L (98 - 107) 01/26/2016 08:19 CO2 27 mmol/L (22 - 29) 01/26/2016 08:19 AGAP 8 mmol/L (7 - 15) 01/26/2016 08:19 Glucose Fasting 94 mg/dL (70 - 99) 01/26/2016 08:19 Creatinine 0.7 mg/dL (0.6 - 1.1) 01/26/2016 08:19 EGFR (MDRD) >60 mL/min/1.73m2 (>=60 - ) 01/26/2016 08:19 EGFR (MDRD) >60 mL/min/1.73m2 (>=60 - ) 01/26/2016 08:19 BUN 12 mg/dL (6 - 21) 01/26/2016 08:19 Calcium Lvl 9.1 mg/dL (8.0 - 10.3) 01/26/2016 08:19 Cholesterol (H) 212 mg/dL ( - <=199) 01/26/2016 08:19 Trig 65 mg/dL ( - <=149) 01/26/2016 08:19 HDL 62 mg/dL (>=50 - ) 01/26/2016 08:19 LDL Calculated (H) 137 mg/dL ( - <=129) 01/26/2016 08:19 Chol/HDL Ratio 3.42 01/26/2016 08:19 LDL/HDL 2 01/26/2016 08:19 TSH (H) 5.15 mIU/L (0.27 - 4.20) 01/26/2016 08:19 T4 Free (L) 0.73 ng/dL (0.90 - 1.70) Source: [facility] POWERCHART Document Id: [id number] Electronically signed by Conversion, [facility] Business Loan Processor [id number] at 04/09/2017 5:07 PM CDT documented in this encounter Plan of Treatment Upcoming Encounters Date Type Specialty Care Team Description 11/01/2022 Office Visit Urology Regina Black APRN, C.N.P. [address] [phone] (Wo rk) documented as of this encounter Procedures Procedure Name Priority Date/Time Associated Diagnosis Comme nts LIPID PANEL, S Routine 01/26/2016 8:19 AM Results for this CDT procedure are i n the results section. BASIC METABOLIC Routine 01/26/2016 8:19 AM Result s for this PANEL, S/P CDT procedure are i n the results section. documented in this encounter Results (ABNORMAL) Lipid Panel (01/26/2016 8:19 AM CDT) P athologist Signature Calculated LDL 137 (H) <=129 MGDL POWERCHART Comment: 2014 National Lipid Association [...] for FH and FDB is available [facility]: FH/ADH Genetic Reflex Lim el (test ADHP). Acquired (non-genetic) causes of markedly increased LDL cholesterol include cholestatic liver disease due to the presence of LpX. If a genetic form of hypercholesterolemia is suspected, family studies including biochemical testing fo r lipids (total cholesterol,triglycerides, LDL cholesterol and HDL cholesterol) are recommended. ??Please contact the laboratory at or the on-line test catalog at [facility] for information about how to order these seymour ts or to speak with a genetic counselor. Further interpretation would require clinical information. Total Cholesterol/HDL Ratio 3.42 PO WERCHART Cholesterol, Total 212 (H) <=199 MGDL POWERCHART Comment: 2013 National Lipid Association recommen dations for Total Cholesterol in adults ages 18 and up: Desirable <200 mg/dL Borderline high 200-239 mg/dL High 240 mg/dL 2014 National Lipid Association recommen dations for Total Cholesterol in children ages 2 to 17. Acceptable <170 mg/dL Borderline High 170-199 mg/dL High 200 mg/dL HX HDL 62 >=50 MGDL POWERCHART Comment: 2014 National Lipid Association recommen dations for HDL-C in adults ages 18 and up: Low <40 mg/dL (Men) Low <50 mg/dL (Women) 2014 National Lipid Association recommen dations for HDL-C in children ages 2 to 17. Low <40 mg/dL Borderline Low 40-45 mg/dL Acceptable >45 mg/dL Triglycerides 65 <=149 MGDL POWERCHART Comment: 2014 National Lipid [...] for risk assessment when triglycerides are >400mg/dL. HXLDL/HDL 2 POWERCHART Specimen (Source) Anatomical Collection Method Collection Time Re ceived Time Location / / Volume Laterality Blood 01/26/2016 8:19 AM CDT Fortino Alarcon M.D. LAB BLOOD ADD-ON Performing Organization Address City/State/ZIP Code Phon e Number POWERCHART BMP (Basic Metabolic Panel) (01/26/2016 8:19 AM CDT) P athologist Signature Sodium, S 141 135 - 145 POWERCHART MMOLL Potassium, S 4.6 3.6 - 5.2 POWERCHART MMOLL Chloride, S 106 98 - 107 POWERCHART [facility] CO2 Total 27 22 - 29 POWERCHART [place] Glucose, 94 70 - 99 POWERCHART Fasting, S MGDL BUN (Blood Urea 12 6 - 21 POWERCHART Nitrogen), S MGDL Creatinine 0.7 0.6 - 1.1 POWERCHART MGDL Calcium, Total, 9.1 8.0 - 10.3 POWERCHART S MGDL Anion Gap 8 7 - 15 POWERCHART MMOLL HXeGFR (MDRD) >60 >=60 POWERCHART [id number] eGFR >60 >=60 POWERCHART Black/ [id number] Syrian Specimen (Source) Anatomical Collection Method Collection Time Re ceived Time Location / / Volume Laterality Blood 01/26/2016 8:19 AM CDT Fortino Alarcon M.D. LAB BLOOD ADD-ON Performing Organization Address City/State/ZIP Code Phon e Number POWERCHART documented in this encounter Visit Diagnoses Not on filedocumented in this encounter Additional Health Concerns Assessment Noted Time PHQ-9 Depression Total Score: 4 01/12/2016 8:43 AM STATE INSPECTOR documented as of this encounter
--- OUTSIDE RECORDS SUMMARY | 2022-09-22 13:36 | XMS_ITS | Encounter Summary ---
:1955 Author Organization [facility] Address [address] [place] [address] Care Team Providers Name Role Phone Unavailable Primary Care Provider Unavailable Encounter Details Date Type Department Care Team Description 10/22/2016 Hospital Encounter HX NO MAPPING Dionna Shaw M.D. [address] [phone] (Wo rk) Social History Tobacco [...] er 09/12/2022 How often do you attend temple or yazidism services? 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 [address] [phone] (Wo rk) documented as of this encounter Visit Diagnoses Not on filedocumented in this encounter Additional Health Concerns Assessment Noted Time PHQ-9 Depression Total Score: 4 01/12/2016 8:43 AM SHORT RANGE AIR DEFENSE ARTILLERY documented as of this encounter
--- OUTSIDE RECORDS SUMMARY | 2022-09-22 13:36 | XMS_ITS | Encounter Summary ---
:1955 Author Organization [facility] Address [address] [place] [address] Care Team Providers Name Role Phone Unavailable Primary Care Provider Unavailable Encounter Details Date Type Department Care Team Description 09/03/2016 Hospital Encounter HX [facility] Hoang Crockett M.D. [address] [place] [phone] (Wo rk) Social History Tobacco Use Types [...] How often do you attend confucianism or pentecostalism services? 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 [address] [phone] (Wo rk) documented as of this encounter Procedures Procedure Name Priority Date/Time Associated Comments Diagnosis CARNITINE, P Routine 09/03/2016 11:46 Results for this AM CDT procedure are i n the results section. AUTOMATED DIFFERENTIAL, Routine 09/03/2016 11:46 Results for this B AM CDT procedure are i n the results section. IRON AND TOT Routine 09/03/2016 11:46 Results for this IRON-BINDING CAPACITY, AM CDT proce dure are in S/P the results section. CBC WITH DIFFERENTIAL, B Routine 09/03/2016 11:46 Results for this AM CDT procedure are i n the results section. THYROID-STIMULATING Routine 09/03/2016 11:46 Resu lts for this HORMONE-SENSITIVE AM CDT procedure are in (S-TSH) the results section. FERRITIN, S Routine 09/03/2016 11:46 Results for this AM CDT procedure are i n the results section. THYROPEROXIDASE (TPO) Routine 09/03/2016 11:40 Re sults for this ABS, S AM CDT procedure are i n the results section. THYROID-STIMULATING Routine 09/03/2016 11:40 Resu lts for this IMMUNOGLOBULIN (TSI), S AM CDT proc edure are in the results section. T3 (TRIIODOTHYRONINE), Routine 09/03/2016 11:40 R esults for this TOT, S AM CDT procedure are i n the results section. T4 (THYROXINE), TOT Routine 09/03/2016 11:40 Resu lts for this ONLY, S AM CDT procedure are i n the results section. VITAMIN B12 ASSAY, S Routine 09/03/2016 11:40 Res ults for this AM CDT procedure are i n the results section. documented in this encounter Results Automated Differential (09/03/2016 11:46 AM CDT) P athologist Signature Absolute 2.62 1.70 - POWERCHART Neutrophils 7.00 109L Lymphocytes 2.10 0.90 - POWERCHART 2.90 X109L Monocytes 0.47 0.30 - POWERCHART 0.90 X109L Eosinophils 0.24 0.05 - POWERCHART 0.50 X109L Absolute 0.01 0.00 - POWERCHART Basophil 0.30 X109L Specimen Anatomical Collection Method Collection Time Receive d Time (Source) Location / / Volume Laterality Blood 09/03/2016 11:46 09/03/2016 AM CDT 11:46 AM CDT Historical Provider LAB BLOOD ADD-ON Performing Organization Address City/State/ZIP Code Phon e Number POWERCHART CBC with Differential (09/03/2016 11:46 AM CDT) P athologist Signature Leukocytes 5.4 3.4 - 10.5 POWERCHART X109L Erythrocytes 4.36 3.90 - 5.03 POWERCHART [id number] Hemoglobin 13.6 12.0 - 15.5 POWERCHART GDL Hematocrit 40.8 34.9 - 44.5 POWERCHART MCV 93.6 82.0 - 98.0 POWERCHART FL HX RDW 12.7 11.9 - 15.5 POWERCHART Platelet Count 273 150 - 450 POWERCHART X109L Specimen (Source) Anatomical Collection Method Collection Time Re ceived Time Location / / Volume Laterality Blood 09/03/2016 11:46 AM CDT Historical Provider LAB BLOOD ADD-ON Performing Organization Address City/State/ZIP Code Phon e Number POWERCHART Iron and Total Iron-Binding Capacity (09/03/2016 11:46 AM CDT) P athologist Signature Iron 71 35 - 145 POWERCHART MCGDL Total Iron 293 250 - 400 POWERCHART Binding Capacity UGDL Percent 24.2 13.9 - POWERCHART Saturation 50.1 Specimen Anatomical Collection Method Collection Time Receive d Time (Source) Location / / Volume Laterality Blood 09/03/2016 11:46 09/03/2016 2:42 AM CDT PM CDT Historical Provider LAB BLOOD ADD-ON Performing Organization Address City/[facility]/ZIP Code Phon e Number POWERCHART Thyroid-Stimulating Hormone-Sensitive (s-TSH) (09/03/2016 11:46 AM CDT) P athologist Signature TSH 1.30 0.27 - 4.20 POWERCHART (Thyrotropin) MIUL Comment: [...] (Source) Location / / Volume Laterality Blood 09/03/2016 11:46 09/03/2016 2:33 AM CDT PM CDT Historical Provider LAB BLOOD ADD-ON Performing Organization Address City/State/ZIP Code Phon e Number POWERCHART Carnitine (09/03/2016 11:46 AM CDT) [facility] gist Method Time Signature Total 46 34 - 78 POWERCHART NMOLML Free (FC) 38 25 - 54 POWERCHART NMOLML Acylcarnitine 8 5 - 30 POWERCHART (AC) NMOLML AC/FC Ratio 0.2 0.1 - 0.8 POWERCHART HXCarnitine See Comment POWERCHART Intrp-Sanders Comment: RESULT: In this sample, the carnitine pr ofile was normal. Test Performed by: [facility] [place] [id number] Capacity Analyst: Maximo Liz II, M.D., Ph.D. Specimen (Source) Anatomical Collection Method Collection Time Re ceived Time Location / / Volume Laterality Blood 09/03/2016 11:46 AM CDT Historical Provider LAB BLOOD ADD-ON Performing Organization Address City/[facility] Phon e Number POWERCHART Ferritin (09/03/2016 11:46 AM CDT) P athologist Signature Ferritin, S 30.7 11.0 - POWERCHART 307.0 NGML Comment: Biotin has been identified by the [...] Time Location / / Volume Laterality Blood 09/03/2016 11:46 AM CDT Historical Provider LAB BLOOD ADD-ON Performing Organization Address [facility] Phon e Number POWERCHART Thyroid-Stimulating Immunoglobulin (TSI) (09/03/2016 11:40 AM CDT) P athologist Signature Thyroid-Stimula <1.0 <=1.3 POWERCHART ting Gracie, S Comment: Test Performed by: [facility] [place] [id number] Capacity Analyst: Maximo Liz II, M.D., Ph.D. Specimen Anatomical Collection Method Collection Time Receive d Time (Source) Location / / Volume Laterality Blood 09/03/2016 11:40 09/03/2016 2:51 AM CDT PM CDT Historical Provider LAB BLOOD ADD-ON Performing Organization Address City/[facility] Phon e Number POWERCHART Vitamin B12 Assay (09/03/2016 11:40 AM CDT) P athologist Signature Vitamin B12 906 180 - 914 POWERCHART Assay, S NGL Comment: Biotin has been identified by the manufa cturer as a potential interfering substance. Higher concentrations of biotin may be found in multivitamins, hair/nail supplements, and workout supplements. If the result does not match clinical observat ions, repeat testing after patient refrains from the use of supplements for at least 12 hours. Specimen Anatomical Collection Method Collection Time Receive d Time (Source) Location / / Volume Laterality Blood 09/03/2016 11:40 09/03/2016 AM CDT 11:40 AM CDT Historical Provider LAB BLOOD ADD-ON Performing Organization Address City/State/ZIP Code Phon e Number POWERCHART T4 (Thyroxine), Total Only (09/03/2016 11:40 AM CDT) P athologist Signature T4 (Thyroxine), 7.9 4.5 - 11.7 POWERCHART Total Only, S MCGDL Comment: Biotin has been identified by the [facility] ctcarmenr as a potential interfering substance. Higher concentrations of biotin may be found in multivitamins, hair/nail supplements, and workout supplements. If the result does not match clinical observat ions, repeat testing after patient refrains from the use of supplements for at least 12 hours. Specimen Anatomical Collection Method Collection Time Receive d Time (Source) Location / / Volume Laterality Blood 09/03/2016 11:40 09/03/2016 AM CDT 11:40 AM CDT Historical Provider LAB BLOOD ADD-ON Performing Organization Address City/[facility] Code Phon e Number POWERCHART T3 (Triiodothyronine), Total (09/03/2016 11:40 AM CDT) P athologist Signature T3 101 80 - 200 POWERCHART (Triiodothyroni NGDL ne), Total, S Comment: Biotin has been identified by the [facility] ctcarmen[facility] as a potential interfering substance. Higher concentrations of biotin may be found in multivitamins, hair/nail supplements, and workout supplements. If the result does not match clinical observat ions, repeat testing after patient refrains from the use of supplements for at least 12 hours. Specimen Anatomical Collection Method Collection Time Receive d Time (Source) Location / / Volume Laterality Blood 09/03/2016 11:40 09/03/2016 AM CDT 11:40 AM CDT Historical Provider LAB BLOOD ADD-ON Performing Organization Address City/State/ZIP Code Phon e Number POWERCHART Thyroperoxidase (TPO) Antibodies (09/03/2016 11:40 AM CDT) [facility] gist Method Time Signature Thyroperoxidase Ab, <0.3 <9.0 POWERCHART S INTUML Comment: Test Performed by: [place] [address] Capacity Analyst: Maximo Liz II, M.D., Ph.D. 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
--- OUTSIDE RECORDS SUMMARY | 2022-09-22 13:36 | XMS_ITS | Encounter Summary ---
:1955 Author Organization [facility] Address [address] [place] [address] Care Team Providers Name Role Phone Unavailable Primary Care Provider Unavailable Encounter Details Date Type Department Care Team Description 03/22/2016 Hospital Encounter HX [facility] Rigo Márquez M.D. Social History Tobacco Use Types Packs/Day Years [...] er 09/12/2022 How often do you attend jehovah's witness or orthodox services? Never 05/13/2019 Do you belong to any clubs or organizations such as jehovah's witness N o 09/12/2022 groups, unions, fraternal or [...] at Date Recorded Female 11/29/2017 6:36 PM DRUM SANDER documented as of this encounter Last Filed Vital Signs Vital Sign Reading Time Taken Comments Blood Pressure - - Pulse - - Temperature - - Respiratory Rate - - Oxygen Saturation - - Inhaled Oxygen Concentration - - Weight - - Height 170 cm (5' 6.93) 03/22/2016 9:01 AM CDT Body Mass Index - - [...] of this encounter Miscellaneous Notes Miscellaneous - Rigo Márquez M.D. - 03/22/2016 4:11 PM CDT From: RIGO MÁRQUEZ MD To: ALFREDO OLIVEROS Sent: 03/22/2016 16:11:05 CDT Your thyroid is slightly under replaced on the 0.050mg. We should increase it to 0.075mg and retest the TSH in 1 month. I have sent a new script for the med (but you can use 1 and 1/2 of the 0.050mg for now) and an order for retest in [place] in a month. Dr. Márquez Results: Date Result Name Ind Value Ref Range 03/22/2016 09:08 TSH (H) 5.80 mIU/L (0.27 - 4.20) Source: [facility] POWERahoyDoc Document Id: [id number] Electronically signed by Conversion, [facility] Power Lineworker [id number] at 04/09/2017 1:27 PM CDT documented in this encounter Plan of Treatment Upcoming Encounters Date Type Specialty Care Team Description 11/01/2022 Office Visit Urology Regina Black APRN, C.N.P. [address] [place] [phone] (Wo rk) documented as of this encounter Procedures Procedure Name Priority Date/Time Associated Diagnosis Comme nts THYROID-STIMULATING Routine 03/22/2016 9:08 AM Re sults for this HORMONE-SENSITIVE CDT procedure are in (S-TSH) the results section. documented in this encounter Results (ABNORMAL) Thyroid-Stimulating Hormone-Sensitive (s-TSH) (03/22/2016 9:08 AM CDT) P athologist Signature TSH 5.80 (H) 0.27 - POWERCHART (Thyrotropin) 4.20 MIUL Specimen (Source) Anatomical Collection Method Collection Time Re ceived Time Location / / Volume Laterality Blood 03/22/2016 9:08 AM CDT Rigo Márquez M.D. LAB BLOOD ADD-ON Performing Organization Address City/State/ZIP Code Phon e Number POWERCHART documented in this encounter Visit Diagnoses Not on filedocumented in this encounter Additional Health Concerns Assessment Noted Time PHQ-9 Depression Total Score: 4 01/12/2016 8:43 AM DRUM SANDER documented as of this encounter
--- OUTSIDE RECORDS SUMMARY | 2022-09-22 13:36 | XMS_ITS | Encounter Summary ---
:1955 Author Organization [facility] Address [address] [place] [address] Care Team Providers Name Role Phone Unavailable Primary Care Provider Unavailable Encounter Details Date Type Department Care Team Description 04/13/2016 Hospital Encounter HX [facility] Fortino Yadav M.D. [address] [place] [address] [phone] Social History Tobacco Use Types Packs/Day [...] How often do you attend amish or yarsani services? 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 - 04/13/2016 8:36 AM CDT [id number] CHIEF COMPLAINT/REASON FOR VISIT 1. Followup on chronic medical problems. 2. Discuss test results. HISTORY OF PRESENT ILLNESS Alfredo is a 60-year-old female who presents to the clinic today for a three month followup from 01/12/2016. Patient saw Dr. Rigo Chang, Workers Compensation Manager on 02/23/2016 for consultation regarding thyroid replacement. Liothyronine was stopped and Synthroid was increased to 50 mcg daily. Repeat TSH was 5.80 on 03/22/2016. Dr. Chang recommended increasing Synthroid to 75 mcg daily and checking her TSH on 07/2016. She was concerned about her heart murmur that was found on her last visit. We discussed possible etiologies, including but not limited to, high blood pressure, thyroid dysfunction, anemia, and obstructive sleep apnea. The patient denies any chest pain, shortness of breath, dizziness, lightheadedness, coughing up blood or phlegm, or leg swelling. We reviewed her echocardiogram from 05/23/2015 at [facility], which showed: 1. Moderately enlarged left atrium. 2. Normal left ventricular size, borderline wall thickness, normal global systolic function, calculated EF of 64%. 3. Grade 2 pattern of LV diastolic filling. 4. Right ventricular cavity size is normal, global systolic RV function is normal. 5. The aortic valve is normal, no stenosis and mild regurgitation. 6. No significant pericardial effusion. She has some right upper arm pain after movement or activities. She mentioned that she broke her armthree years ago. She doesnt like to take NSAIDs. Her right shoulder x-ray on 07/18/2015 showed no acute fracture, dislocation, or soft tissue abnormality. Patient saw Strip Mill Operator and ENT for tinnitus. MRI of the brain on 02/27/2016 showed IACs appear normal; brain appears within the range of normal for age with rare tiny high signal (long TR) non-enhancing foci, likely incidental small foci of gliosis. She is trying to wean off of Buspar because she doesnt have anxiety and is concerned it is causing her tinnitus. She is currently taking Buspar 5 mg twice a day. Patient was also concerned it is due to her thyroid She has some episodes of depression and is taking Doxepin and Lexapro. She is followed by Dr. Odette Gaytan, psychiatrist. Alfredo mentioned that she saw Dr. Aneta Marie, Science Education Professor about a month ago. She has history of skin basal cell cancer near left axilla. Per the patient, everything is fine. I reviewed her medication list. We discussed potential side effects. There are no additional questions, concerns, or complaints. MEDICATIONS Buspar 5 mg by mouth three times a day. Vitamin D3 1000 units 1 tablet by mouth daily. Clonazepam 1 mg by mouth three times a day. Doxepin 25 mg by mouth at bedtime. Synthroid 75 mcg by mouth daily in the morning. Vitamin B Complex 1 tablet by mouth daily. Lubricant eye drops 1 drop both eyes twice a day as needed. Fish Oil 3 capsules by mouth daily. Zantac 75 mg by mouth two times daily as needed. ALLERGIES Fluoxetine causing hives. Penicillin causing hives. Sulfa drug causing rash. Vitron-C. Wellbutrin causing tinnitus. SYSTEMS REVIEW Please see HPI for pertinent positives, otherwise rest of ROS negative. PAST MEDICAL/SURGICAL HISTORY Reviewed and updated as per the EHR on 04/13/2016. PREVENTIVE SERVICES Reviewed and updated as per the EHR on 04/13/2016. SOCIAL HISTORY Reviewed and updated as per the EHR on 04/13/2016. FAMILY HISTORY Reviewed and updated as per the EHR on 04/13/2016. VITAL SIGNS HEIGHT: 170 cm. WEIGHT: 89.5 kg. BMI: 30.97 kg/m2. PULSE: 68 /min. RESP: 16 /min. SYSTOLIC: 112 mmHg. DIASTOLIC: 62 mmHg. PHYSICAL EXAMINATION GENERAL: Patient is sitting. No distress. Able to talk without interruption. LYMPH NODES: No cervical or supraclavicular lymphadenopathy. PERIPHERAL VESSELS: Good radial pulses. HEART: No carotid bruit. No JVD. Regular rhythm. There is no S3, gallop, or thrill. She has faint cardiac murmur, grade 1/6. LUNGS: Normal respiratory effort. Clear to auscultation. Normal percussion. JOINTS: No joint swelling or deformity. No decreased range of motion. EXTREMITIES: No clubbing, cyanosis, edema, infection, or calf tenderness. MENTAL: Alert and oriented x 3. Normal mood and affect. NEURO: Grossly nonfocal exam. IMPRESSION/REPORT/PLAN 1. Hypothyroidism. She is euthyroid clinically. Liothyronine was discontinued by Dr. Chang. Patient was advised to continue current dose of Synthroid daily in the morning on empty stomach. She willfollow with Dr. Chang for thyroid medication management. Need to check thyroid function tests asordered by Dr. Chang. 2. Anxiety. It is fairly stable. She is weaning off Buspar. She was advised to continue medication and follow with Dr. Gaytan, psychiatrist. 3. Tinnitus with asymmetrical sensorineural hearing loss. She saw Audiology and ENT. Brain MRI was unrevealing. She will follow with ENT in 6-12 months time. 4. Right arm pain. It could be rotator cuff issue. Refer her to see Dr. Gabe Rodriguez, Engine Wiper for further evaluation and management. 5. Heart murmur. She is asymptomatic. We discussed echocardiogram from 05/23/2015. She doesnt want further testing or evaluation at this time. We will monitor. 6. History of skin basal cell cancer near left axilla. She saw Dr. Aneta Marie, Science Education Professor a monthago. Everything was fine. The patient will return to the clinic in 9 months for annual physical exam, review medical problems,renew medication, and following tests prior to appointment: Fasting BMP, CBC, HFP, and Lipids. This document serves as a record of services personally performed by Dr. Fortino Alarcon. It was created on their behalf by Denny Newman, a trained medical sales consultant. The creation of this record is based on the scribe's personal observations and the provider's statements to them. This document has been checked and approved by the attending provider. Fortino Alarcon M.D./mirian Electronically Signed By: FORTINO ALARCON MD On: 04/14/2016 10:27 AM Modified by and Electronically Signed by: FORTINO ALARCON MD On: 04/14/2016 10:27 AM Source: [facility] MHSDOLBEYNONRADSYS Document Id: [id number] documented in this encounter Miscellaneous Notes Miscellaneous - Fortino Alarcon M.D. - 04/13/2016 9:21 AM CDT Ambulatory Patient Summary [address] [id number] Visit Information Name: SHARONDA ALFREDO SHAH [facility] Number: [id number] Current Date: 04/13/2016 09:21:06 Physicians Attending Provider: FORTINO ALARCON MD Primary [...] Take Indications/Special Instructions/Comments/Notes for Patient Medication Changes/Routing *busPIRone (BuSpar 5 mg oral tablet) 1 Tablet(s), Oral, two times a day This is a CHANGE cholecalciferol (Vitamin D3 1000 intl units oral tablet) 1 Tablet(s), Oral, once a day *clonazePAM (clonazePAM 1 mg oral tablet) 1 Tablet(s), Oral, three times a day doxepin (doxepin 25 mg oral capsule) 1 cap, Oral, once a day (at bedtime) This is a CHANGE levothyroxine (Synthroid 75 mcg (0.075 mg) oral tablet) 1 Tablet(s), Oral, once a day brand approved, increasing from 0.050mg fill when requested This is a CHANGE ocular lubricant (Lubricant Eye Drops ophthalmic solution) 1 Drops, Eyes(Both), two times a day PRN omega-3 polyunsaturated fatty acids (Fish Oil oral capsule) 1 cap, Oral, once a day ranitidine (Zantac 75) 75 mg, Oral, two times a day as needed * You have let us know that you are not taking this medication as listed. Please talk with your primary care provider or the health care provider who prescribed the medication as soon as possible. Stop Taking the Following Medications: levothyroxine (Synthroid 50 mcg (0.05 mg) oral tablet) multivitamin (Vitamin B Complex 100) Medication list as of 04-13-16 09:21 Attention: If you have any medications at [...] Electronically Signed By: FORTINO ALARCON MD Signed On:13-APR-2016 09:21:01 Your Allergies & Intolerances Substance Reaction Symptoms [...] Your Upcoming Appointments Date Time Location Provider 04/22/2016 09:45 [facility] 05/18/2016 08:15 [facility] Attention: Contact your local Clinic if further [...] if you dont have one. Go to [email or web address] and click on Create Your Account. Then, follow the directions to complete the online form. Youll be asked for your [facility] number which you can find at the top of this document. Your Goals/Additional instructions: Source: [facility] POWERCHART Document Id: [id number] Miscellaneous - Fortino Alarcon M.D. - 04/13/2016 9:21 AM CDT Ambulatory Discharge Medication List [address] [id number] Visit Information Name: ALFREDO OLIVEROS [facility] Number: [id number] Visit Date: 04/13/2016 09:21:04 Attending Provider: FORTINO ALARCON MD Primary Care [...] Take Indications/Special Instructions/Comments/Notes for Patient Medication Changes/Routing *busPIRone (BuSpar 5 mg oral tablet) 1 Tablet(s), Oral, two times a day This is a CHANGE cholecalciferol (Vitamin D3 1000 intl units oral tablet) 1 Tablet(s), Oral, once a day *clonazePAM (clonazePAM 1 mg oral tablet) 1 Tablet(s), Oral, three times a day doxepin (doxepin 25 mg oral capsule) 1 cap, Oral, once a day (at bedtime) This is a CHANGE levothyroxine (Synthroid 75 mcg (0.075 mg) oral tablet) 1 Tablet(s), Oral, once a day brand approved, increasing from 0.050mg fill when requested This is a CHANGE ocular lubricant (Lubricant Eye Drops ophthalmic solution) 1 Drops, Eyes(Both), two times a day PRN omega-3 polyunsaturated fatty acids (Fish Oil oral capsule) 1 cap, Oral, once a day ranitidine (Zantac 75) 75 mg, Oral, two times a day as needed * You have let us know that you are not taking this medication as listed. Please talk with your primary care provider or the health care provider who prescribed the medication as soon as possible. Stop Taking the Following Medications: levothyroxine (Synthroid 50 mcg (0.05 mg) oral tablet) multivitamin (Vitamin B Complex 100) Medication list as of 04-13-16 09:21 Attention: If you have any medications at [...] Electronically Signed By: FORTINO ALARCON MD Signed On:13-APR-2016 09:21:01 Additional Information: Source: [facility] POWERCHART Document Id: [id number] Miscellaneous - Eusebio Camacho, L.P.N. 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 Three month follow-up 01/12/2016 review chronic medical problems 2. follow-up on heart murmer that was heard at last visit 3. Right upper arm pain (three years ago broke the arm) Peripheral Pulse Rate : 68 /min Respiratory Rate : 16 /min Systolic Blood Pressure : 112 mmHg Diastolic Blood Pressure : 62 mmHg NIBP Mean : 79 mmHg BP Location : Right upper extremity Blood Pressure Cuff Size : Large Height : 170 cm(Converted to: 5 ft 7 inch(es), 67 inch(es)) Actual Weight : 89.5 kg(Converted to: 197 lb 5 oz) Weight Source : Standing scale Dosing Weight Clinic : 89.5 kg Clinic BSA : 2.06 Body Mass Index : 30.97 kg/m2 EUSEBIO CMAACHO LPN - 04/13/2016 8:42 CDT General Info Information Given By : Patient Preferred Communication Mode : Verbal, Written Languages : Welsh Is Patient Female and 13-50 no hysterectomy : No EUSEBIO CAMACHO LPN - 04/13/2016 8:42 CDT Subjective Pain Symptoms : Yes EUSEBIO CAMACHO LPN - 04/13/2016 8:42 CDT Pain Scale Pain Scale Verbal 0-10 : Open EUSEBIO CAMACHO LPN - 04/13/2016 8:42 CDT Pain Pain Assessment Grid Pain 1 Location : Upper arm Laterality : Right EUSEBIO CAMACHO LPN - 04/13/2016 8:42 CDT Dependent Habits Exposure to Tobacco Smoke : Other: never Smoking Status : Never smoker Tobacco 2A : No Tobacco Use/Currently Using : No Tobacco Use/Last 30 Days : No Tobacco Use/Last 12 months : No EUSEBIO CAMACHO LPN 04/13/2016 8:42 CDT Caffeine Use Grid Caffeine Use : Current Type : Coffee Frequency : Daily Amount : 2 cups EUSEBIO CAMACHO LPN - 04/13/2016 8:42 CDT Recreational Drug Use Grid Drug Use : None EUSEBIO CAMACHO LPN - 04/13/2016 8:42 CDT Source: [facility] JAMF Software Document Id: [id number] documented in this encounter Plan of Treatment Upcoming Encounters Date Type Specialty Care Team Description 11/01/2022 Office Visit Urology Regina Black APRN, C.N.P. 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
--- OUTSIDE RECORDS SUMMARY | 2022-09-22 13:36 | XMS_ITS | Encounter Summary ---
:1955 Author Organization [facility] Address [address] [place] [address] Care Team Providers Name Role Phone Unavailable Primary Care Provider Unavailable Encounter Details Date Type Department Care Team Description 10/22/2016 Hospital Encounter HX [facility] Hola Alicea M.D. [address] [place], [place] [phone] (Wo rk) Social History [...] er 09/12/2022 How often do you attend sikhism or jewish services? Never 05/13/2019 Do you belong to any clubs or organizations such as sikhism N o 09/12/2022 groups, unions, fraternal or [...] at Date Recorded Female 11/29/2017 6:36 PM MAINTENANCE ADVISOR documented as of this encounter Last Filed Vital Signs Vital Sign Reading Time Taken Comments Blood Pressure 102/70 10/22/2016 9:54 AM MAINTENANCE ADVISOR Pulse 68 10/22/2016 9:54 AM MAINTENANCE ADVISOR Temperature - - Respiratory Rate 14 10/22/2016 9:54 AM MAINTENANCE ADVISOR Oxygen Saturation - - Inhaled Oxygen Concentration - - Weight 87.3 kg (192 lb 7.4 oz) 10/22/2016 9:54 AM MAINTENANCE ADVISOR Height 170 cm (5' 6.93) 10/22/2016 9:54 AM MAINTENANCE ADVISOR Body Mass Index 30.21 10/22/2016 9:54 AM MAINTENANCE ADVISOR documented in this encounter Medications at Time [...] documented as of this encounter H&P Notes Radha Sanchez M.D. - 10/22/2016 9:05 AM CST [id number] REVISION HISTORY 11/15/2016 at 1:43 p.m. - Modification to Physical Examination and Impression/Report/Plan by Radha Sanchez M.D. CHIEF COMPLAINT/REASON FOR VISIT Annual examination. HISTORY OF PRESENT ILLNESS Alfredo is a 60-year-old, para 0-0-3-0 female who presents for annual exam today. 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 However, she does feel that her issues with anxiety have been worsening recently. She feels like she is slipping. She is on trazodone to help her sl eep but wonders if she needs to increase her medications. She has an appointment with Dr. Gaytan at the end of next week to hopefully get on top of this. She also has been bothered by right arm pain. She saw Orthopedics and Dr. Rodriguez. An MRI shows bone necrosis, bursitis, and tendinitis. She received asteroid injection but has had no relief with that. She has been trying exercise and rest with no help. This has been bothersome to her as well. MEDICATIONS See medication list updated in the EMR today. ALLERGIES See allergy list updated in the EMR today. SYSTEMS REVIEW GENERAL: Positive for fatigue. HEENT: No changes in vision or hearing, no sore throat or nasal congestion. CARDIOVASCULAR: No chest pain, irregular heartbeat or racing heart. RESPIRATORY: No shortness of breath, cough or wheeze. GASTROINTESTINAL: No nausea, vomiting, diarrhea, constipation or abdominal pain. GENITOURINARY: No pain or burning with urination, no irregular vaginal bleeding, heavy periods, painful periods, abnormal vaginal discharge, leaking urine, leaking stool or gas. SKIN: No rashes or skin lesions. BREASTS: No masses or lumps, no discharge from the nipples. NEUROLOGIC: No difficulty with memory, numbness, tingling, falls. PSYCHIATRIC: Positive for anxiety, depression, and difficulty sleeping - see HPI. ENDOCRINE: No heat intolerance, cold intolerance, excessive thirst or hair loss. PAST MEDICAL/SURGICAL HISTORY PAST MEDICAL HISTORY: See problem list updated in the EMR today. PAST SURGICAL HISTORY: See procedure list updated in the EMR today. OBSTETRIC/GYNECOLOGIC HISTORY Para 0-0-3-0 female, status post 2 elective abortions and 1 spontaneous . She has no historyof STDs and does have a history of an abnormal Pap smear requiring colposcopy in 1997, but no treatment was required. She has had no abnormal Pap smears since then. She has a history of menarche at age14 and menopause at age 50. She had very light periods throughout her life. She has had no menopausal issues recently or no vaginal bleeding. She is not sexually active with penetration very often. Sheoccasionally has tenderness of the vulva and vaginal area, and coconut oil applied to the area seemsto help. PREVENTIVE SERVICES Tobacco use: Negative. Last Pap smear 06/22/2013. Last mammogram 09/15/2015, and she is scheduled for this today. Last colon screening 08/22/2014. Last tetanus vaccination 06/22/2013. Last fasting lipid panel 01/26/2016. Last bone density testing on 10/27/2015 showed osteopenia. SOCIAL HISTORY No tobacco, alcohol, or drug use. She denies any concerns about abuse. She is in a committed relationship of more than 20 years. She is sexually active with 1 male partner, though not with penetration very often. 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 She continues to walk 3 to 4 times per week and always wears her seatbelt in a motor vehicle. FAMILY HISTORY See family history list updated in the EMR today. VITAL SIGNS See results review section updated in the EMR today. PHYSICAL EXAMINATION GENERAL: Well nourished female in no acute distress. SKIN: No rashes. Positive for hyperpigmented plaque like lesions with sharply demarcated borders consistent with seborrheic keratoses. HEAD: Normocephalic, atraumatic. EYES: Sclerae without injection or icterus. ENT: Tympanic membranes pearly white bilaterally with positive light reflex. Nasal turbinates not erythematous or edematous. Posterior pharynx without erythema or exudates. Good dentition. LYMPH NODES: Neck supple. No cervical, supraclavicular or axillary lymphadenopathy. THYROID: No thyromegaly. BREASTS: Symmetric bilaterally. No lesions or dimpling of the skin noted. No dominant masses palpable. Nipples without inversion or drainage. HEART: Regular rate and rhythm. No murmurs, rubs or gallops. LUNGS: Breathing nonlabored. Chest clear to auscultation bilaterally. No wheezes or rales. ABDOMEN: Soft, nontender. Nondistended. Normoactive bowel sounds. No masses palpable. RECTUM: No external hemorrhoids noted. GENITALIA: External genitalia with sparse pubic hair distribution. There are some structural changesof agglutination of the labia minora to the labia majora with some obliteration of the clitoral doyle. The skin appears pale and atrophic and fragile. The urethral meatus is normal in location and appearance without masses. The vaginal mucosa is pink and moist, somewhat thin appearing, and without gross lesions or abnormalities. The cervix appears nulliparous and is without gross lesions or abnormalities. SPINE: No spinal, paraspinal or CVA tenderness. EXTREMITIES: Lower extremities nontender. No edema. GAIT: Normal. MENTAL: Alert and oriented times three. Affect pleasant. Mood happy. NEUROLOGIC: Cranial nerves II through XII grossly intact. Reflexes 2+ at patellas. IMPRESSION/REPORT/PLAN A 61-year-old para 0-0-3-0 female who presents for annual examination today and has some increased anxiety symptoms and issues with her shoulder but from a gynecologic standpoint is doing fairly well. 1. Preventive services: Pap smear is performed today. Mammogram will be performed today as well. Dueto the history of osteopenia on bone density testing last year, we will repeat blood density testingagain this year. She will also receive her flu shot today. Colon screening, tetanus vaccination, lipid panel are all up to date at this time. She is encouraged to continue regular seatbelt use and regular exercise and counseled on the need for 1200 mg of calcium in her diet each day and given a handout on this. 2. Anxiety issues: The patient has been seeing Dr. Gaytan in the [place] area and has been doing very well with that. She is on trazodone and clonazepam. She has an appointment scheduled at the end of next week to see Dr. Gaytan to see about adjusting her medications due to her increased anxiety. Shewas encouraged to keep that visit. 3. History of vaginal dryness: We discussed this last year. She has been using coconut oil, and thatdoes help. She is not sexually active with penetration very often. 4. Chronic medical issues: The patient follows with Dr. Alarcon, her primary provider, for her chronic medical issues. 5. Right arm pain: The patient has been seen by Dr. Rodriguez and by Orthopedics for this. She is encouraged to follow up with them as she feels the need. 6. Seborrheic keratoses: The patient has several seborrheic keratoses that she reports are bothersome to her and she would like to have removed. I will send a referral to Dr. Bernardo for removal of these as patient elects to do that after discussing this with Dr. Bernardo. 7. Followup: One year or as needed. Radha Sanchez M.D./imani Electronically Signed By: RADHA SANCHEZ MD On: 11/15/2016 01:14 PM Radha Sanchez M.D./papi Electronically Signed By: RADHA SANCHEZ MD On: 11/15/2016 01:14 PM Co-Signed By: RADHA SANCHEZ MD On: 11/15/2016 01:50 PM Source: [facility] MHSDOLBEYNONRADSYS Document Id: [id number] TENANCE ADVISOR documented in this encounter Miscellaneous Notes Miscellaneous - Maryana Rousseau, L.P.N. - 11/16/2016 8:29 AM CST PHQ-9 PHQ-9 Entered On: 11/16/2016 8:29 MAINTENANCE ADVISOR Performed On: 11/16/2016 8:29 MAINTENANCE ADVISOR by MARYANA ROUSSEAU LPN PHQ-9 Little interest or pleasure in doing things : Not at all Feeling down, depressed, or hopeless : Not at all Trouble falling or staying asleep, or sleeping too much : More than half the days Feeling tired or having little energy : More than half the days Poor appetite or overeating : Not at all Feeling bad about yourself or that you are a failure : Not at all Trouble concentrating on things : Several days Moving or speaking slowly; restless or fidgety : Not at all Thoughts that you would be better off /hurting self : Not at all PHQ-9 Calculated Score : 5 Problems make work, home, or dealing with others : Somewhat difficult MARYANA ROUSSEAU LPN - 11/16/2016 8:29 MAINTENANCE ADVISOR Source: [facility] POWERCHART Document Id: [id number] MAINTENANCE ADVISOR!13 TENANCE ADVISOR Miscellaneous - Radha Sanchez M.D. - 11/15/2016 12:23 PM CST Ambulatory Discharge Medication List [address] [id number] Visit Information Name: ALFREDO OLIVEROS [facility] Number: [id number] Current Date: 11/15/2016 12:22:59 Attending Provider: RADHA SANCHEZ MD Primary Care Provider: FORTINO ALARCON MD ALFREDO OLIVEROS has been given the following list of medications: Your Medications It is important to take your medications as directed. Use a pill box or chart to help remind you to take your medications. Please let your doctor or nurse know if you have problems taking your medications. Medication/Strength Dose Route Frequency Indications/Special Instructions/Comments/Notes traZODone (traZODone 50 mg oral tablet) 50 mg Oral three times a day multivitamin, ( Multivitamins) Oral once a day clonazePAM (clonazePAM 1 mg oral tablet) 1 mg Oral once a day as needed for Anxiety levothyroxine (Synthroid 75 mcg (0.075 mg) oral tablet) 75 mcg Oral once a day brand approved, increasing from 0.050mg fill when requested ocular lubricant (Lubricant Eye Drops ophthalmic solution) 1 drop(s) Eyes(Both) two times a day PRN ranitidine (Zantac 75) 75 mg Oral two times a day as needed cholecalciferol (Vitamin D3 1000 intl units oral tablet) 1,000 IntU Oral once a day omega-3 polyunsaturated fatty acids (Fish Oil oral capsule) 1 cap(s) Oral once a day Attention: If you have any medications at home that are not on this list, DO NOT take them until youcontact your provider for clarification. Give a copy of your medication list to your primary care provider. Update your medication list any time medications or doses are changed and carry your medication list at all times in case of emergency. Electronically Signed By: RADHA SANCHEZ MD Signed On:15-NOV-2016 12:22:41 Additional Information: Source: [facility] POWERCHART Document Id: [id number] TENANCE ADVISOR Miscellaneous - Radha Sanchez M.D. - 11/15/2016 12:23 PM CST Ambulatory Patient Summary [address] [id number] Visit Information Name: ALFREDO OLIVEROS [facility] Number: [id number] Current Date: 11/15/2016 12:23:00 Physicians Attending Provider: RADHA SANCHEZ MD Primary Care Provider: FORTINO ALARCON MD [...] you have problems taking your medications. Medication/Strength Dose Route Frequency Indications/Special Instructions/Comments/Notes traZODone (traZODone 50 mg oral tablet) 50 mg Oral three times a day multivitamin, ( Multivitamins) Oral once a day clonazePAM (clonazePAM 1 mg oral tablet) 1 mg Oral once a day as needed for Anxiety levothyroxine (Synthroid 75 mcg (0.075 mg) oral tablet) 75 mcg Oral once a day brand approved, increasing from 0.050mg fill when requested ocular lubricant (Lubricant Eye Drops ophthalmic solution) 1 drop(s) Eyes(Both) two times a day PRN ranitidine (Zantac 75) 75 mg Oral two times a day as needed cholecalciferol (Vitamin D3 1000 intl units oral tablet) 1,000 IntU Oral once a day omega-3 polyunsaturated fatty acids (Fish Oil oral capsule) 1 cap(s) Oral once a day Attention: If you have any medications at home that are not on this list, DO NOT take them until youcontact your provider for clarification. Give a copy of your medication list to your primary care provider. Update your medication list any time medications or doses are changed and carry your medication list at all times in case of emergency. Electronically Signed By: RADHA SANCHEZ MD Signed On:15-NOV-2016 12:22:41 Your Allergies & Intolerances Substance Reaction Symptoms [...] Appointments Date Time Location Provider 01/13/2017 08:00 [facility] 01/17/2017 09:15 [facility] Dorian RIOJAS, [place] Attention: Contact your local Clinic if further appointment detail needed. [id number] - Sources of Calcium Consider Using Patient Online Services Patient Online [...] if you dont have one. Go to [email or web address] and click on Create Your Account. Then, follow the directions to complete the online form. Youll be asked for your [facility] number which you can find at the top of this document. Your Goals/Additional instructions: Source: [facility] POWERCHART Document Id: [id number] TENANCE ADVISOR Miscellaneous - Cuauhtemoc Kelly L.PJuanchoNJuancho - 10/22/2016 11:01 AM CST Math Professor Documentation Math Professor Documentation Entered On: 10/22/2016 11:02 MAINTENANCE ADVISOR Performed On: 10/22/2016 11:01 MAINTENANCE ADVISOR by CUAUHTEMOC KELLY LPN Math Professor Documentation Exam/Procedure Performed : Breast/ Pelvic exam CD Math Professor Present : Yes CD Math Professor Name : Ruma Alvarenga RN Present in Room During Exam/Procedure : Alone CUAUHTEMOC KELLY LPN - 10/22/2016 11:01 MAINTENANCE ADVISOR Source: [facility] [employer] Document Id: [id number] MAINTENANCE ADVISOR!6 TENANCE ADVISOR Miscellaneous - Cuauhtemoc Kelly L.P.NJuancho - 10/22/2016 9:54 AM CST Adult Motor Equipment Commanding Officer Intake/History Adult Motor Equipment Commanding Officer Intake/History Entered On: 10/22/2016 9:56 MAINTENANCE ADVISOR Performed On: 10/22/2016 9:54 MAINTENANCE ADVISOR by CUAUHTEMOC KELLY LPN Intake Chief Complaint : Annual LMP Date : Postmenopausal Peripheral Pulse Rate : 68 /min Respiratory Rate : 14 /min Heart Rhythm : Regular Systolic Blood Pressure : 102 mmHg Diastolic Blood Pressure : 70 mmHg NIBP Mean : 81 mmHg BP Location : Left upper extremity Blood Pressure Cuff Size : Regular Height : 170 cm(Converted to: 5 ft 7 inch(es), 67 inch(es)) Actual Weight : 87.3 kg(Converted to: 192 lb 7 oz) Weight Source : Standing scale Dosing Weight Clinic : 87.3 kg Clinic BSA : 2.03 Body Mass Index : 30.21 kg/m2 CUAUHTEMOC KELLY LPN - 10/22/2016 9:54 MAINTENANCE ADVISOR General Info Languages : Burkinan Is Patient Female and 13-50 no hysterectomy : No CUAUHTEMOC KELLY LPN - 10/22/2016 9:54 MAINTENANCE ADVISOR Subjective Pain Symptoms : No CUAUHTEMOC KELLY LPN - 10/22/2016 9:54 MAINTENANCE ADVISOR Dependent Habits Exposure to Tobacco Smoke : Other: never Smoking Status : Never smoker Tobacco 2A : No Tobacco Use/Currently Using : No Tobacco Use/Last 30 Days : No Tobacco Use/Last 12 months : No CUAUHTEMOC KELLY LPN - 10/22/2016 9:54 MAINTENANCE ADVISOR Caffeine Use Grid Caffeine Use : Current Type : Coffee Frequency : Daily Amount : 2 cups CUAUHTEMOC KELLY WOOD REPATCHER - 10/22/2016 9:54 MAINTENANCE ADVISOR Recreational Drug Use Grid Drug Use : None CUAUHTEMOC KELLY ROBIN - 10/22/2016 9:54 MAINTENANCE ADVISOR Source: [facility] POWERCHART Document Id: [id number] MAINTENANCE ADVISOR!39 TENANCE ADVISOR documented in this encounter Plan of Treatment Upcoming Encounters Date Type Specialty Care Team Description 11/01/2022 Office Visit Urology Regina Black APRN, C.N.P. [address] [phone] (Wo rk) documented as of this encounter Procedures Procedure Name Priority Date/Time Associated Diagnosis Comme nts PATHOLOGY HEATING AND VENTILATION ENGINEER Routine 10/22/2016 12:00 AM Results for this CYTOLOGY MAINTENANCE ADVISOR procedure are i n the results section. documented in this encounter Results Pathology HEATING AND VENTILATION ENGINEER Cytology (10/22/2016 12:00 AM MAINTENANCE ADVISOR) Specimen (Source) Anatomical Location Collection Method / Collectio n Time Received Time / Laterality Volume 10/22/2016 Narrative [facility] - 11/01/2016 9:59 AM MAINTENANCE ADVISOR [facility] in [address] [place] [address] ??[phone] Patient Name: ALFREDO OLIVEROS Patient ID #: [id number] Collected: 10/22/2016 Address: [facility]/State/Zip: [address] [place] [address] ??[id number] Received: Reported: 10/25/2016 11/01/2016 Soc. Sec. #: ?/Age/Sex 1955 (Age: 60) ??F Physician(s): CHIQUITA SANCHEZ MD Copy To: ? [facility] ??[id number] [address] [place] [address], ??ID ??[id number] CYTOPATHOLOGY HEATING AND VENTILATION ENGINEER REPORT FINAL CYTOLOGIC DIAGNOSIS Pap Smear - ThinPrep with HPV: NEGATIVE FOR INTRAEPITHELIAL LESION OR MALIGNANCY SPARSE TO NO ENDOCERVICAL COMPONENT PRES ENT. SATISFACTORY SPECIMEN FOR EVALUATION. Electronically Signed Out By stellaw/11/01/[address](ASCP) The Pap test is a screening procedure an d, as such, is subject to both false positive and false negative results as evidenced by published data. ??It is not a diagnostic test and results should be inter preted in the context of the patient's h istory and other clinical findings. ??Obtaining per iodic Pap tests may help to minimize the consequences of any false negatives that may occur. Procedures/Addenda: HUMAN PAPILLOMA VIRUS ADDENDUM ? Nathen e Ordered: ? 10/25/2016 ? Status: ??Signed Out Date Complete: ? 11/01/2016 ? By : ??PETER Talavera CT(ASCP) Date Reported: ? 11/01/2016 INTERPRETATION: HPV with Genotyping, PCR, ThinPrep HPV High Risk Type 16, PCR ? NEGATIVE HPV High Risk Type 18, PCR ? NEGATIVE HPV other High Risk types, PCR ?NEGATIVE The following Other High Risk HPV types were not detected: 31, 33, 35, 39, 45, 51, 52, 56, 58, 59, 66, and 68. Testing performed at: [address] [address] Door Glass Installer: Maximo Liz II, MD SPECIMEN(S) RECEIVED: Pap Smear - ThinPrep with HPV CLINICAL HISTORY: Menstrual History: Postmenopausal Hormonal History: No hormonal therapy Other Clinical Conditions: 16/18 HPV TYPING REQUESTED Radha Sanchez M.D. LAB PAP COPATH ORDERABLES Performing Organization Address City/State/ZIP Code Phon e Number [facility] documented in this encounter Visit Diagnoses Not on filedocumented in this encounter Additional Health Concerns Assessment Noted Time PHQ-9 Depression Total Score: 5 11/16/2016 8:29 AM MAINTENANCE ADVISOR documented as of this encounter
--- OUTSIDE RECORDS SUMMARY | 2022-09-22 13:36 | XMS_ITS | Encounter Summary ---
:1955 Author Organization [facility] Address [address] [place] [address] Care Team Providers Name Role Phone Unavailable Primary Care Provider Unavailable Encounter Details Date Type Department Care Team Description 05/24/2016 Hospital Encounter HX [facility] Hoang Crockett M.D. [address] [place] [address] [phone] (Wo rk) Social History Tobacco [...] er 09/12/2022 How often do you attend religion or temple services? 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 miscellaneous medical autoSV, heated 0 09/20/2014 supply [facility] humidifier, mask, headgear, filters and tubing. Length of Need: 99 raNITIdine (for_ZANTAC) Take 75 mg by mouth 0 05/12/2018 75 mg tablet once as needed. documented as of this encounter Miscellaneous Notes Telephone Encounter - Mirna Diaz R.N. - 05/25/2016 8:07 AM CDT RE: Document Contains Addenda Addendum by MIRNA DIAZ RN on May 25, 2016 08:07:28 CDT From: MIRNA DIAZ RN (OW Nurse Line) To: NEELIMA MÁRQUEZ MD; Sent: 05/25/2016 08:07:28 CDT Subject: Thank You From: ALFREDO OLIVEROS To: OW Nurse Line Sent: 05/24/2016 7:55:24 PM ([facility]-06:00) Central Time ([place] & [place]) Subject: RE: Thank you for helping me get this level in line. I'll follow with dr. Alarcon. From: NEELIMA MÁRQUEZ MD To: CINDY ALARCON MD; ALFREDO OLIVEROS Sent: 05/24/2016 19:42:30 CDT Your replacement is much better on the higher dose. I would recommend retesting it in three to six months [address]. Alarcon. I have included him on this note to help you with the retest. Dr. Márquez Results: Date Result Name Value Ref Range 05/24/2016 10:52 TSH 2.20 mIU/L (0.27 - 4.20) Source: Liquid Document Id: [id number] Electronically signed by Conversion, [facility] Lead Scientist [id number] at 04/09/2017 10:43 PM CDT Miscellaneous - Neelima Márquez M.D. - 05/24/2016 7:42 PM CDT Addendum by CINDY ALARCON MD on May 25, 2016 11:00:21 CDT From: CINDY ALARCON MD To: NEELIMA MÁRQUEZ MD; ALFREDO OLIVEROS Sent: 05/25/2016 11:00:21 CDT Subject: RE: Noted. Thank you. Cindy From: NEELIMA MÁRQUEZ MD To: CINDY ALARCON MD; ALFREDO OLIVEROS Sent: 05/24/2016 19:42:30 CDT Your replacement is much better on the higher dose. I would recommend retesting it in three to [address] Alarcon. I have included him on this note to help you with the retest. Dr. Márquez Results: Date Result Name Value Ref Range 05/24/2016 10:52 TSH 2.20 mIU/L (0.27 - 4.20) Source: Liquid Document Id: [id number] Electronically signed by Conversion, [facility] Lead Scientist [id number] at 04/09/2017 10:43 PM CDT documented in this encounter Plan of Treatment Upcoming Encounters Date Type Specialty Care Team Description 11/01/2022 Office Visit Urology Regina Black APRN, C.N.P. [address] [phone] (Wo rk) documented as of this encounter Procedures Procedure Name Priority Date/Time Associated Diagnosis Comme nts THYROID-STIMULATING Routine 05/24/2016 10:52 AM R esults for this HORMONE-SENSITIVE CDT procedure are in (S-TSH) the results section. documented in this encounter Results Thyroid-Stimulating Hormone-Sensitive (s-TSH) (05/24/2016 10:52 AM CDT) P athologist Signature TSH 2.20 0.27 - 4.20 POWERCHART (Thyrotropin) MIUL Specimen (Source) Anatomical Collection Method Collection Time Re ceived Time Location / / Volume Laterality Blood 05/24/2016 10:52 AM CDT Neelima Márquez M.D. 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
--- OUTSIDE RECORDS SUMMARY | 2022-09-22 13:36 | XMS_ITS | Encounter Summary ---
:1955 Author Organization [facility] Address [address] [place] [address] Care Team Providers Name Role Phone Unavailable Primary Care Provider Unavailable Encounter Details Date Type Department Care Team Description 04/21/2016 Hospital Encounter HX [facility] FB LAB Cindy Alarcon M.D. [address] [facility], [facility] [address] [phone] Social History Tobacco Use Types Packs/Day [...] How often do you attend anabaptist or synagogue services? Never 05/13/2019 Do you belong to [...] or slept in a custodial (including now)? 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 - 04/22/2016 10:19 AM CDT FW: Document Contains Addenda Addendum by NEELIMA MÁRQUEZ MD on April 22, 2016 17:04:15 CDT From: NEELIMA MÁRQUEZ MD To: ALFREDO OLIVEROS Sent: 04/22/2016 17:04:15 CDT Subject: RE: Yes. Being hypothyroid does tend to make us less active and burn less enery. Weight loss does as always require a reduction in calory intake though. Thank you, Dr. Márquez Addendum by DANILO HILL LPN on April 22, 2016 10:23:20 CDT From: DANILO HILL LPN ( Bernardo Nurse) To: NEELIMA MÁRQUEZ MD; Sent: 04/22/2016 10:23:20 CDT Subject: FW: From: BECK LIND RN ( Nurse Line) To: MARITA Márquez Nurse; Sent: 04/22/2016 10:19:23 CDT Subject: FW: From: ALFREDO OLIVEROS To: [facility] ( Nurse Line) Sent: 04/22/2016 09:35 a.m. CDT Subject: RE: Thank you for your message. It has been successfully sent to the appropriate care team. Thank you. Now that my TSH is in normal range will it be easier for me to lose weight? From: NEELIMA MÁRQUEZ MD To: ALFREDO OLIVEROS Sent: 04/22/2016 09:26:46 CDT Your replacement is very good. I would like to retest it again in a month since it has fluctuated. Ihave placed an order for you. Dr. Márquez Results: Date Result Name Value Ref Range 04/21/2016 11:46 TSH 2.06 mIU/L (0.27 - 4.20) [facility] Document Id: [id number] Electronically signed by Conversion, [facility] Lye Peel Operator [id number] at 04/09/2017 9:27 PM CDT Miscellaneous - Neelima Márquez M.D. - 04/22/2016 9:26 AM CDT From: NEELIMA MÁRQUEZ MD To: ALFREDO OLIVEROS Sent: 04/22/2016 09:26:46 CDT Your replacement is very good. I would like to retest it again in a month since it has fluctuated. Ihave placed an order for you. Dr. Márquez Results: Date Result Name Value Ref Range 04/21/2016 11:46 TSH 2.06 mIU/L (0.27 - 4.20) Source: [facility] POWERCHART Document Id: [id number] Electronically signed by Harpal, [facility] Lye Peel Operator [id number] at 04/09/2017 9:27 PM CDT documented in this encounter Plan of Treatment Upcoming Encounters Date Type Specialty Care Team Description 11/01/2022 Office Visit Urology Regina Black APRN, C.N.P. [address], [place] [phone] (Wo rk) documented as of this encounter Procedures Procedure Name Priority Date/Time Associated Diagnosis Comme nts THYROID-STIMULATING Routine 04/21/2016 11:46 AM R esults for this HORMONE-SENSITIVE CDT procedure are in (S-TSH) the results section. documented in this encounter Results Thyroid-Stimulating Hormone-Sensitive (s-TSH) (04/21/2016 11:46 AM CDT) P athologist Signature TSH 2.06 0.27 - 4.20 POWERCHART (Thyrotropin) MIUL Specimen (Source) Anatomical Collection Method Collection Time Re ceived Time Location / / Volume Laterality Blood 04/21/2016 11:46 AM CDT Neelima Márquez M.D. 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
--- OUTSIDE RECORDS SUMMARY | 2022-09-22 13:36 | XMS_ITS | Encounter Summary ---
:1955 Author Organization [facility] Address [address] [place] [address] Care Team Providers Name Role Phone Unavailable Primary Care Provider Unavailable Encounter Details Date Type Department Care Team Description 06/28/2016 Hospital Encounter HX [facility] Tony Boyd M.D. [address] [phone] (Wo rk) Social History [...] er 09/12/2022 How often do you attend mormon or baptist services? Never 05/13/2019 Do you belong to any clubs or organizations such as mormon N o 09/12/2022 groups, unions, fraternal or [...] or slept in a retirement (including now)? 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 documented as of this encounter Last Filed Vital Signs Vital Sign Reading Time Taken Comments Blood Pressure 100/70 06/28/2016 9:41 AM CDT Pulse - - Temperature - - Respiratory Rate - - Oxygen Saturation - - Inhaled Oxygen Concentration - - Weight 90 kg (198 lb 6.6 oz) 06/28/2016 9:41 AM CDT Height 170 cm (5' 6.93) 06/28/2016 9:41 AM CDT Body Mass Index 31.14 06/28/2016 9:41 AM CDT documented in this encounter Medications [...] documented as of this encounter Consult Notes Omar Villagomez - 06/28/2016 9:24 AM CDT [id number] PRIMARY CARE PROVIDER Cindy Alarcon MD CHIEF COMPLAINT/REASON FOR VISIT Right shoulder pain. HISTORY OF PRESENT ILLNESS Emelyn is a very pleasant 60-year-old female who we were asked to see by Dr. Rodriguez for evaluation of right shoulder pain. She reports that she fell approximately 3 years ago resulting in a right proximal humerus fracture. She was treated with splinting and then physical therapy. She states that she had been doing well until she started to significantly use the arm and then she noticed an increase in right shoulder pain. She then resumed some physical therapy and continued to have pain. 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 She is here today for further recommendations regarding this. She denies any significant abrupt changes. No re-injury. She does like doing home improvement and is bothered most when she is painting above herhead. Patient denies any recent weight change, fever, chills, night sweats, nausea, vomiting, lightheadedness, or dizziness. Please see orthopedic intake form dated 06/28/2016 for details of patient's past medical, social, surgical, family, medication, and allergy history. This was reviewed and signed by myself on today's date. SYSTEMS REVIEW As per HPI. All other systems are negative. VITAL SIGNS Height 170 cm, weight 90 kg. Blood pressure 100/70. PHYSICAL EXAMINATION GENERAL: This is a well-nourished, well-developed female. She is alert and oriented x3, inno acute distress. She is cooperative and responds appropriately to all questions. MUSCULOSKELETAL: Examination of the right shoulder reveals no pain with palpation. She has 5/5 strength in all directions. Mild pain with empty can test. She demonstrates full range of motion. She doeshave a positive Mccarthy Zbigniew test with impingement-type pain. This pain radiates down her proximal humerus. She is neurovascularly intact distally. Capillary refill less than 2 seconds. DIAGNOSTICS MRI was reviewed from 06/09/2016. These show a broad-based area of avascular necrosis of the superior medial aspect of the humeral head. This includes a visualization of a 2.5 cm segment area of crescentic-appearing subchondral and subcortical fracture. Mild flattening of the superomedial aspect of the humeral head is noted. Quvg-bz-lgsxtvpu tendinopathy and thinning of the distal supraspinatus and infraspinatus tendon fibers. No evidence of discrete tear. There are generalized grade 2 with scattered areas of grade 3 chondromalacia of the glenohumeral joint. IMPRESSION/REPORT/PLAN Avascular necrosis of the humeral head of the right shoulder. PLAN: Emelyn is a very pleasant 60-year-old female who presents with avascular necrosis of the humeral head. This is resulting from a fall. We did discuss the likely progression of her avascular necrosis. At this point, this is a nonreversible injury. We did state that this will continue to progress like arthritis. Patient is in understanding. She is not able to take nonsteroidal anti-inflammatories secondary to a previous GI bleed. We did discuss that she should continue her physical therapy. We also will attempt a subacromial cortisone injection. If she gets less than 6 months of relief from this I would recommend an intra-articular cortisone injection. This can be done by Radiology or ultrasoundguidance. Patient is in understanding. Dr. Smiley was present for evaluation and discussion with patient. All questions were answered to patient's satisfaction. The risks, benefits, and alternatives of cortisone injection were discussed with the patient and shewishes to proceed. PROCEDURE: Safe site universal protocol was used. No less than 2 patient identifiers were used to identify the patient. Patient was able to correctly identify the procedure. The right shoulder was marked posteriorly, cleansed with ChloraPrep, and a final time-out was taken prior to injection of 8 mL of 1% lidocaine and 9 mg of Celestone using a 21-gauge needle. Patient tolerated this well without anycomplications. We will plan on seeing her back on an as-needed basis. Omar Villagomez P.A.-C./imani cc: Cindy Alarcon M.D. [facility] [place] [address] Electronically Signed By: OMAR VILLAGOMEZ MS On: 07/05/2016 01:02 PM Source: [facility] MHSDOLBEYNONRADSYS Document Id: [id number] Addendum by TONY SMILEY MD on July 05, 2016 13:15 CDT Patient seen and examined with Omar Villagomez. Agree with above assessment and plan. Modified by and Electronically Signed by: TONY SMILEY MD On: 07/05/2016 01:15 PM Source: [facility] POWERCHART Document Id: [id number] documented in this encounter Miscellaneous Notes Miscellaneous - Conor Daley, CJuanchoMJuanchoAJuancho - 06/28/2016 9:41 AM CDT Adult Synthetic Department Supervisor Intake/History Adult Synthetic Department Supervisor Intake/History Entered On: 06/28/2016 9:46 CDT Performed On: 06/28/2016 9:41 CDT by CONOR DALEY AIRCRAFT LOG CLERK Intake Chief Complaint : Rt shoulder pain for 3 years. Fell 3 years ago and fracture it. Dr. Rodriguez referral. Had MRI 06/09/2016. Systolic Blood Pressure : 100 mmHg Diastolic Blood Pressure : 70 mmHg NIBP Mean : 80 mmHg Height : 170 cm(Converted to: 5 ft 7 inch(es), 67 inch(es)) Actual Weight : 90 kg(Converted to: 198 lb 7 oz) Dosing Weight Clinic : 90 kg Clinic BSA : 2.06 Body Mass Index : 31.14 kg/m2 CONOR DALEY [facility] - 06/28/2016 9:41 CDT General Info Information Given By : Patient Languages : Amharic Is Patient Female and 13-50 no hysterectomy : No CONOR DALEY CMA - 06/28/2016 9:41 CDT Subjective Pain Symptoms : Yes CONOR DALEY AIRCRAFT LOG CLERK - 06/28/2016 9:41 CDT Pain Scale Pain Scale Verbal 0-10 : Open CONOR DALEY CMA - 06/28/2016 9:41 CDT Pain Pain Assessment Grid Pain 1 Location : Shoulder Intensity : 1 CONOR DALEY [facility] - 06/28/2016 9:41 CDT Dependent Habits Exposure to Tobacco Smoke : Other: never Smoking Status : Never smoker Tobacco 2A : No Tobacco Use/Currently Using : No Tobacco Use/Last 30 Days : No Tobacco Use/Last 12 months : No CONOR DALEY [facility] - 06/28/2016 9:41 CDT Caffeine Use Grid Caffeine Use : Current Type : Coffee Frequency : Daily Amount : 2 cups CONOR DALEY [facility] - 06/28/2016 9:41 CDT Recreational Drug Use Grid Drug Use : None CONOR DALEY [facility] - 06/28/2016 9:41 CDT Source: [facility] POWERCHART Document Id: [id number] CDT!40 documented in this encounter Plan of Treatment Upcoming Encounters Date Type Specialty Care Team Description 11/01/2022 Office Visit Urology Regina Black APRN, C.N.P. [address] [place], [place] [phone] (Wo rk) documented as of this encounter Visit Diagnoses Not on filedocumented in this encounter Additional Health Concerns Assessment Noted Time PHQ-9 Depression Total Score: 4 01/12/2016 8:43 AM SKIN THERAPIST documented as of this encounter
--- OUTSIDE RECORDS SUMMARY | 2022-09-22 13:36 | XMS_ITS | Encounter Summary ---
:1955 Author Organization [facility] Address [address] [place] [address] Care Team Providers Name Role Phone Unavailable Primary Care Provider Unavailable Encounter Details Date Type Department Care Team Description 09/03/2016 Hospital Encounter HX NO MAPPING Toan Dominguez M.D. [address] [place], [place] [address] Social History Tobacco Use Types Packs/Day Years [...] How often do you attend shinto or latter-day services? Never 05/13/2019 Do you belong to [...] slept in a care home (including now)? 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 [address] [phone] (Wo rk) documented as of this encounter Visit Diagnoses Not on filedocumented in this encounter Additional Health Concerns Assessment Noted Time PHQ-9 Depression Total Score: 4 01/12/2016 8:43 AM CLOTHES SEPARATOR documented as of this encounter
--- OUTSIDE RECORDS SUMMARY | 2022-09-22 13:36 | XMS_ITS | Encounter Summary ---
:1955 Author Organization [facility] Address [address] [place] [address] Care Team Providers Name Role Phone Unavailable Primary Care Provider Unavailable Encounter Details Date Type Department Care Team Description 01/26/2016 Hospital Encounter HX [facility] FB LAB Fortino Alarcon M.D. 15[address] [facility], [facility] [address] [phone] Social History Tobacco Use Types Packs/Day [...] er 09/12/2022 How often do you attend baptist or zoroastrianism services? 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 - 02/01/2016 3:16 PM CDT Free T 3 From: FORTINO ALARCON MD To: ALFREDO OLIVEROS Cc: KEDAR Alarcon Nurse; Sent: 02/01/2016 15:16:15 CDT Subject: Free T 3 Actions: Notify patient of results David Dunaway, Your free T3 level is slightly high this time. Dr. Alarcon. Results: Date Result Name Ind Value Ref Range 01/26/2016 08:19 T3 Free-Sanders (H) 3.7 pg/mL (2.0 - 3.5 - ) Source: [facility] POWERCHART Document Id: [id number] Electronically signed by Conversion, [facility] Carpet Finishing Supervisor [id number] at 04/09/2017 5:07 PM CDT documented in this encounter Plan of Treatment Upcoming Encounters Date Type Specialty Care Team Description 11/01/2022 Office Visit Urology Regina Black APRN, C.N.P. [address] [place] [phone] (Wo rk) documented as of this encounter Procedures Procedure Name Priority Date/Time Associated Diagnosis Comme nts T3 Routine 01/26/2016 8:19 AM Results f or this (TRIIODOTHYRONINE), CDT procedur e are in FREE, S the results section. THYROID-STIMULATING Routine 01/26/2016 8:19 AM Re sults for this HORMONE-SENSITIVE CDT procedure are in (S-TSH) the results section. T4 (THYROXINE), Routine 01/26/2016 8:19 AM Result s for this FREE, S CDT procedure are i n the results section. documented in this encounter Results T3 (Triiodothyronine), Free (01/26/2016 8:19 AM CDT) athologist Signature T3 3.7 2.8 - 4.4 POWERCHART (Triiodothyroni PGML ne), Free, S Comment: Test Performed by: [place] [id number] Avionics Safety Inspector: Maximo Liz II, M.D., Ph.D. Specimen (Source) Anatomical Collection Method Collection Time Re ceived Time Location / / Volume Laterality Blood 01/26/2016 8:19 AM CDT Fortino Alarcon M.D. LAB BLOOD ADD-ON Performing Organization Address City/[facility] Code Phon e Number POWERCHART (ABNORMAL) T4 (Thyroxine), Free (01/26/2016 8:19 AM CDT) athologist Signature T4 0.73 (L) 0.90 - POWERCHART (Thyroxine), 1.70 NGDL Free, S Specimen (Source) Anatomical Collection Method Collection Time Re ceived Time Location / / Volume Laterality Blood 01/26/2016 8:19 AM CDT Fortino Alarcon M.D. LAB BLOOD ADD-ON Performing Organization Address City/[facility] Code Phon e Number POWERCHART (ABNORMAL) Thyroid-Stimulating Hormone-Sensitive (s-TSH) (01/26/2016 8:19 AM CDT) athologist Signature TSH 5.15 (H) 0.27 - POWERCHART (Thyrotropin) 4.20 MIUL [...] Depression Total Score: 4 01/12/2016 8:43 AM LEAD DRIVER documented as of this encounter
--- OUTSIDE RECORDS SUMMARY | 2022-09-22 13:36 | XMS_ITS | Encounter Summary ---
:1955 Author Organization [facility] Address [address] [place] [id number] Care Team Providers Name Role Phone Unavailable Primary Care Provider Unavailable Encounter Details Date Type Department Care Team Description 02/23/2016 Hospital Encounter HX [facility] INTERNMED Alvaro Márquez M.D. Social History Tobacco Use Types [...] How often do you attend hindu or zoroastrian services? 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 - 02/23/2016 1:13 PM CDT [id number] CHIEF COMPLAINT/REASON FOR VISIT A 60-year-old patient of Dr. Alarcon's seen at his request for assistance in managing her thyroid replacement. She has a niece with thyroid CA. 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 She has subsequently struggled with multiple symptoms including weight gain, anxiety, difficulty sleeping and constipation. She was noted to have a mildly elevated TSH. She did start on the thyroid hormone, Synthroid 0.025 mg, currently taking 0.0375 mg. She also visited with Psychiatry and was started on T3 and half of a 25 mcg daily. She does tend to feel a little jittery after taking the morning dose of the T3 and is interested ingetting rid of that. Overall she feels a little better in general but still struggles with the anxiety and difficulty sleeping. She denies shortness of breath, chest pain, or abdominal pain. MEDICATIONS BuSpar 5 mg 3 times daily. Vitamin D3, 2 daily. Clonazepam 1 mg 3 times daily as needed. Doxepin 10 mg 1-1/2 tablets daily. Synthroid 0.025 mg 1-1/2 tablets daily. Liothyronine 25 mcg half a tablet daily. Vitamin B complex daily. Lubrication eye drops daily. Fish oil 3 times daily. Zantac 75 mg 2 times daily as needed. ALLERGIES Fluoxetine, penicillin, sulfa drugs, Vitron-C and Wellbutrin. SYSTEMS REVIEW Does not drink or smoke. No fevers, chills, cough, shortness of breath, chest pain, abdominal pain, diarrhea, or dysuria. Other than the other noted symptoms of anxiety, trouble sleeping, weight gain, tinnitus and constipation, all other review of systems are negative. PAST MEDICAL/SURGICAL HISTORY 1. Multinodular goiter. 2. Anxiety. 3. Reflux. 4. Diverticula. 5. Abnormal liver function. 6. Mixed hyperlipidemia. 7. Acquired hypothyroidism. SOCIAL HISTORY Lives in [place]. FAMILY HISTORY A niece with thyroid CA. VITAL SIGNS Blood pressure today is 98/64, pulse is 72, weight is 88.8 kg. PHYSICAL EXAMINATION GENERAL: Middle-aged heavyset female, in no apparent distress. EYES: Pupils are equal. ENT: TMs pearly white. Nose, mouth without lesions. NECK: Supple. Trachea is midline. Thyroid is absent on the right, palpable at the upper limits of normal on the left. There is no cervical or supraclavicular adenopathy. LUNGS: Clear to auscultation. No crackles or wheezes. CARDIAC: Regular rate and rhythm. Normal S1, S2. No S3, S4. No murmurs. SKIN: Warm and dry. IMPRESSION/REPORT/PLAN Middle-aged woman with multinodular goiter, status post resection on the right. Did have mildly elevated TSH, low T4 and T3. She is currently taking both T4 and T3. We did discuss normal thyroid function as well as Jacob's and thyroid replacement options when needed. She does have some symptoms consistent with hypothyroidism but also has symptoms consistent with hyperthyroidism. We did review that. We did review the relative minimal variance of her TSH off the normal range. Given that, would notanticipate a significant change in her symptoms getting her back into the normal range, however, shedoes feel better. We are going to go ahead and recheck her TSH today. She would like to get rid of the T3 which I think would be quite appropriate since it does tend to muddy the greene. We will plan to adjust her Synthroid to get her TSH into the normal range and she is agreeable with that plan. We will have her get a TSH here today and then next month TSH we will get in [place]. Thank you very much for the consult. Rigo Márquez M.D./imani cc: Fortino Alarcon M.D. [facility] [place] [address] Electronically Signed By: RGIO MÁRQUEZ MD On: 02/24/2016 12:54 PM Source: [facility] MHSDOLBEYNONRADSYS Document Id: [id number] documented in this encounter Miscellaneous Notes Telephone Encounter - Conversion, Historical Provider Ser - 03/25/2016 11:32 AM CDT *Phone Message Document Contains Addenda Addendum by KARINE JEFFERY RN on March 25, 2016 12:51:28 CDT Needed rx for synthroid resent with CANDIDO vs substatution checked. From: ENA BAILEY (OW 2 [facility] Library Clerk) To: MARITA lift manager; Sent: 03/25/2016 11:32:06 CDT Subject: *Phone Message Caller is: ( ) Patient ( ) Mother ( ) Father ( ) Spouse ( ) Daughter ( ) Son ( ) Pharmacy ( [facility] [phone] ) Other: Physician: Dr. Márquez Patient MRN #: Reason for Call: Message: March 22 a Rx was sent for a medicaiton but a note for the brand name needs to be corrected to reflect the need for the name brand only. It was previously sent with the substitute allowed which is not typical for this patient. Please review and call back with any questions. Advice/Action: Source used: ( ) Verbalizes understanding [...] back cell phone number ( ) Source: [facility] Dwellable Document Id: [id number] Miscellaneous - Rigo Márquez M.D. - 02/23/2016 2:48 PM CDT Ambulatory Patient Summary [address] [phone] Visit Information Name: ALFREDO OLIVEROS [facility] Number: [id number] Current Date: 02/23/2016 14:48:03 Physicians Attending Provider: RIGO MÁRQUEZ MD Primary Care Provider: FORTINO ALARCON MD [...] 5 mg oral tablet) 1 Tablet(s), Oral, three times a day *cholecalciferol (Vitamin D3 1000 intl units oral tablet) 1 Tablet(s), Oral, once a day *clonazePAM (clonazePAM 1 mg oral tablet) 1 Tablet(s), Oral, three times a day *doxepin (doxepin 10 mg oral capsule) 1 cap, Oral, once a day (at bedtime) levothyroxine (Synthroid 25 mcg (0.025 mg) oral tablet) 1.5 Tablet(s), Oral, once a day (in the morning) Dose increased 02/01/2016. On empty stomach. multivitamin (Vitamin B Complex 100) 1 Tablet(s), Oral, once a day ocular lubricant (Lubricant Eye Drops ophthalmic solution) 1 Drops, Eyes(Both), two times a day PRN *omega-3 polyunsaturated fatty acids (Fish Oil oral capsule) [...] as possible. Stop Taking the Following Medications: ascorbic acid (Vitamin C) bifidobacterium-lactobacillus (Probiotic Formula oral capsule) liothyronine (liothyronine) magnesium oxide (magnesium oxide 250 mg oral tablet) Medication list as of 02-23-16 14:48 Attention: If you have any medications at home that are not on this list, DO NOT take them until youcontact your provider for clarification. Give a copy of your medication list to your primary care provider. Update your medication list any time medications or doses are changed and carry your medication list at all times in case of emergency. Electronically Signed By: RIGO MÁRQUEZ MD Signed On:23-FEB-2016 14:47:22 Your Allergies & Intolerances Substance Reaction Symptoms [...] Your Upcoming Appointments Date Time Location Provider 04/13/2016 08:45 [facility] Fortino Alarcon MD 05/18/2016 08:15 [facility] Lab [facility] 05/18/2016 08:15 [facility] [...] if you dont have one. Go to [email or web address] and click on Create Your Account. Then, follow the directions to complete the online form. Youll be asked for your [facility] number which you can find at the top of this document. Your Goals/Additional instructions: Source: [facility] POWERCHART Document Id: [id number] Miscellaneous - Rigo Márquez M.D. - 02/23/2016 2:48 PM CDT Ambulatory Discharge Medication List [facility] [address] [place] [id number] Visit Information Name: SHARONDAALFREDO PABLO [facility] Number: [id number] Visit Date: 02/23/2016 14:48:03 Attending Provider: RIGO MÁRQUEZ MD Primary Care Provider: FORTINO ALARCON MD [...] 5 mg oral tablet) 1 Tablet(s), Oral, three times a day *cholecalciferol (Vitamin D3 1000 intl units oral tablet) 1 Tablet(s), Oral, once a day *clonazePAM (clonazePAM 1 mg oral tablet) 1 Tablet(s), Oral, three times a day *doxepin (doxepin 10 mg oral capsule) 1 cap, Oral, once a day (at bedtime) levothyroxine (Synthroid 25 mcg (0.025 mg) oral tablet) 1.5 Tablet(s), Oral, once a day (in the morning) Dose increased 02/01/2016. On empty stomach. multivitamin (Vitamin B Complex 100) 1 Tablet(s), Oral, once a day ocular lubricant (Lubricant Eye Drops ophthalmic solution) 1 Drops, Eyes(Both), two times a day PRN *omega-3 polyunsaturated fatty acids (Fish Oil oral capsule) [...] as possible. Stop Taking the Following Medications: ascorbic acid (Vitamin C) bifidobacterium-lactobacillus (Probiotic Formula oral capsule) liothyronine (liothyronine) magnesium oxide (magnesium oxide 250 mg oral tablet) Medication list as of 02-23-16 14:48 Attention: If you have any medications at home that are not on this list, DO NOT take them until youcontact your provider for clarification. Give a copy of your medication list to your primary care provider. Update your medication list any time medications or doses are changed and carry your medication list at all times in case of emergency. Electronically Signed By: RIGO MÁRQUEZ MD Signed On:23-FEB-2016 14:47:22 Additional Information: Yes - . Source: [facility] POWERCHART Document Id: [id number] Miscellaneous - Cuauhtemoc Burgess C.M.A. - 02/23/2016 1:36 PM CDT Adult Lan/Wan Engineer Intake/History Adult Lan/Wan Engineer Intake/History Entered On: 02/23/2016 13:39 CDT Performed On: 02/23/2016 13:36 CDT by CUAUHTEMOC BURGESS BUSINESS PLANNING DIRECTOR Intake Chief Complaint : thyroid, establish care Peripheral Pulse Rate : 72 /min Respiratory Rate : 12 /min (LOW) Heart Rhythm : Regular Systolic Blood Pressure : 98 mmHg Diastolic Blood Pressure : 64 mmHg NIBP Mean : 75 mmHg BP Location : Right upper extremity Blood Pressure Cuff Size : Large Height : 170 cm(Converted to: 5 ft 7 inch(es), 67 inch(es)) Actual Weight : 88.8 kg(Converted to: 195 lb 12 oz) Dosing Weight Clinic : 88.8 kg Clinic BSA : 2.05 Body Mass Index : 30.73 kg/m2 CUAUHTEMOC BURGESS [facility] - 02/23/2016 13:36 CDT General Info Information Given By : Patient Languages : Kinyarwanda Is Patient Female and 13-50 no hysterectomy : No CUAUHTEMOC BURGESS [facility] - 02/23/2016 13:36 CDT Subjective Pain Symptoms : CUAUHTEMOC Maurice [facility] - 02/23/2016 13:36 CDT Dependent Habits Exposure to Tobacco Smoke : Other: never Smoking Status : Never smoker Tobacco 2A : No Tobacco Use/Currently Using : No Tobacco Use/Last 30 Days : No Tobacco Use/Last 12 months : No CUAUHTEMOC BURGESS [facility] - 02/23/2016 13:36 CDT Caffeine Use Grid Caffeine Use : Current Type : Coffee Frequency : Daily Amount : 2 cups CUAUHTEMOC BURGESS [facility] - 02/23/2016 13:36 CDT Recreational Drug Use Grid Drug Use : None CUAUHTEMOC BURGESS [facility] - 02/23/2016 13:36 CDT Source: [facility] Document Id: [id number] CDT!38 documented in this encounter Plan of Treatment Upcoming Encounters Date Type Specialty Care Team Description 11/01/2022 Office Visit Urology Regina Black APRN, C.N.P. [address] [place], [place] [phone] (Wo rk) documented as of this encounter Visit Diagnoses Not on filedocumented in this encounter Additional Health Concerns Assessment Noted Time PHQ-9 Depression Total Score: 4 01/12/2016 8:43 AM RAILROAD FIRER documented as of this encounter
--- OUTSIDE RECORDS SUMMARY | 2022-09-22 13:36 | XMS_ITS | Encounter Summary ---
:1955 Author Organization [facility] Address [address] [place] [address] Care Team Providers Name Role Phone Unavailable Primary Care Provider Unavailable Encounter Details Date Type Department Care Team Description 05/31/2016 Hospital Encounter HX [facility]TR Stephen Rodriguez M.D. [address] [place] [address], [address] [place] [address] (Wo rk) Social History Tobacco [...] er 09/12/2022 How often do you attend jew or zoroastrian services? Never 05/13/2019 Do you belong to any clubs or organizations such as jew N o 09/12/2022 groups, unions, fraternal or [...] or slept in a prison (including now)? 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 - 05/31/2016 9:03 AM CDT [id number] CHIEF COMPLAINT/REASON FOR VISIT Right shoulder pain. REFERRAL SOURCE Fortino Alarcon MD HISTORY OF PRESENT ILLNESS Ms. Oliveros is a very pleasant 60-year-old right-handed female who reports that she suffered a right humerus fracture in March 2013. She was seen at [facility] and she reports she used a sling for 6 weeks and the pain did improve, but since then she has had pain in her right shoulder that has worsened over thepast year. She describes this pain as primarily being located in the anterolateral right shoulder. The pain is worse with any type of movement including trying to reach overhead or behind her back. Shecan occasionally have pain at night if she has been active during the day. She gets this with specific examples of vacuuming, cleaning the kitchen, painting, all of which exacerbate her pain. If she does not move the arm, she rates it as a 1 to 2 out of 10, but if she is more active then the pain increases. Occasionally she can have pain that will radiate into the anterior humerus and volar aspect ofthe forearm but that is not typical. She denies any paresthesias or focal weakness in the right upper extremity. Ms. Oliveros did have x-rays performed of her right shoulder on July 18, 2015, which were negativefor any osseous abnormalities. She has been involved in physical therapy at [facility] in [place]. She did find that to be helpful and is still doing the exercises she was shown on her own independently approximately 2 times per week. She also ices when her pain is increased as well as uses Tylenol 500 mg daily as she cannot take NSAIDs secondary to GI issues. MEDICATIONS Reviewed as per EMR under the medication list tab on 05/31/2016. ALLERGIES Fluoxetine, penicillin, sulfa drugs, Vitron-C, Wellbutrin. PAST MEDICAL/SURGICAL HISTORY Reviewed as per the diagnosis and problems tab in the EMR on 05/31/2016. SOCIAL HISTORY Ms. Oliveros lives in [place]. 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 PHYSICAL EXAMINATION GENERAL: Pleasant 60-year-old female in no acute distress. NEUROLOGICAL: Oriented to person, place and time. Appropriate mood and affect. STRENGTH: All major muscle groups of the bilateral upper extremities have normal and symmetric muscle strength, bulk and tone, except for -1 weakness with testing of the right supraspinatus. SHOULDERS: Forward elevation is to 180 degrees bilaterally, abduction 180 degrees bilaterally with pain in the mid arc on the right, external rotation to 85 degrees on the right and 90 degrees on the left, internal rotation is to L4 on the right and L1 on the left. Positive Neer's, positive Mccarthy, mildly positive speed's, negative scarf. [place]'s causes equal pain in the 1st and 2nd positions on the right. There is tenderness to palpation in the anterior subacromial space on the right. IMPRESSION/REPORT/PLAN 1. Yfqzr-yn-scqimis right shoulder pain. 2. History of right proximal humerus fracture. I had a long discussion today with Ms. Oliveros. Her symptoms are most consistent with right shoulder impingement syndrome. I cannot rule out a full-thickness rotator cuff tear with her -1 weakness that she has with testing of her supraspinatus. She has been involved in very appropriate interventions tothis point including being involved in physical therapy. PLAN: 1. With Ms. Oliveros's persistent pain and physical examination findings today, despite very appropriate treatment, we are going to proceed with an MRI of the right shoulder. 2. I will plan on seeing Ms. Oliveros following the MRI to discuss the results and the next step in her management. Ms. Oliveros knows to be in contact with me prior to that time if she notes any worseningor worrisome symptoms, which we went over in detail today. She voiced agreement and understanding with this plan. Charlie Rodriguez M.D./imani cc: Fortino Alarcon M.D. [facility] [place] [address] Electronically Signed By: CHARLIE RODRIGUEZ MD On: 06/01/2016 10:09 AM Modified by and Electronically Signed by: CHARLIE RODRIGUEZ MD On: 06/01/2016 10:09 AM Source: [facility] MHSDOLBEYNONRADSYS Document Id: [id number] documented in this encounter Miscellaneous Notes Miscellaneous - Ruma Napoles L.P.N. - 05/31/2016 9:50 AM CDT *General Message Document Contains Addenda Addendum by RUMA NAPOLES LPN on June 10, 2016 13:29:21 CDT Order faxed. Addendum by BRITNEY GUNTER on June 03, 2016 14:26:58 CDT From: BRITNEY GUNTER ([facility]iology [facility]) To: RUMA NAPOLES LPN; Sent: 06/03/2016 14:26:58 CDT Subject: RE: *General Message No auth needed, ok to schedule From: RUMA NAPOLES LPN To: [facility]Rad[facility]; Sent: 05/31/2016 09:50:53 CDT Subject: *General Message Patient Referred to Provider or Facility: _[facility] Ordering Provider: _Michael Appointment Date (if known): _ Imaging Service Ordered: (list CPT code or body part to be scanned) _R Shoulder _ W/ Contrast _x W/O Contrast _ W/O Contrast followed by with _ _ CT/CTA _x MRI _ MRA _ PET _Nuclear Cardiology Study _ Other: (list): _ Diagnosis (CPT code if Known): _Pain in shoulder Injury Related _ Yes _x No If yes, date and type of injury: _ Source: [facility] POWERCHART Document Id: [id number] Electronically signed by Harpal [facility] Set Up Mechanic [employer] [id number] at 04/10/2017 1:03 PM CDT Miscellaneous - Charlie Rodriguez M.D. - 05/31/2016 9:38 AM CDT Ambulatory Patient Summary [facility] [address] [place] [id number] Visit Information Name: MANINDERALFREDO LI PABLO [facility] Number: [id number] Current Date: 05/31/2016 09:38:31 Physicians Attending Provider: CHARLIE RODRIGUEZ MD Primary Care Provider: FORTINO ALARCON MD MANINDERNICK LIDIALLO SHAH has been given the following list [...] Take Indications/Special Instructions/Comments/Notes for Patient Medication Changes/Routing azithromycin (Zithromax 250 mg oral tablet) 2 tablets on day 1, then 1 tablet on days 2-5, Oral, as directed x 5 day(s) busPIRone (BuSpar 5 mg oral tablet) 1 [...] the Following Medications: Medication list as of 05-31-16 09:38 Attention: If you have any medications at [...] Electronically Signed By: CHARLIE RODRIGUEZ MD Signed On:31-MAY-2016 09:38:13 Your Allergies & Intolerances Substance Reaction Symptoms [...] 08:00 [facility] Lab [facility] Lab 01/17/2017 09:15 [facility] Fortino Alarcon MD Attention: Contact your local Clinic if further [...] if you dont have one. Go to [email or web address] and click on Create Your Account. Then, follow the directions to complete the online form. Youll be asked for your [facility] number which you can find at the top of this document. Your Goals/Additional instructions: Source: [facility] POWERCHART Document Id: [id number] Miscellaneous - Charlie Rodriguez M.D. - 05/31/2016 9:38 AM CDT Ambulatory Discharge Medication List [address] [id number] Visit Information Name: NICK OLIVEROSNE PABLO [facility] Number: [id number] Visit Date: 05/31/2016 09:38:30 Attending Provider: CHARLIE RODRIGUEZ MD Primary Care Provider: FORTINO ALARCON MD [...] Take Indications/Special Instructions/Comments/Notes for Patient Medication Changes/Routing azithromycin (Zithromax 250 mg oral tablet) 2 tablets on day 1, then 1 tablet on days 2-5, Oral, as directed x 5 day(s) busPIRone (BuSpar 5 mg oral tablet) 1 [...] the Following Medications: Medication list as of 05-31-16 09:38 Attention: If you have any medications at [...] Electronically Signed By: CHARLIE RODRIGUEZ MD Signed On:31-MAY-2016 09:38:13 Additional Information: Source: [facility] POWERCHART Document Id: [id number] Miscellaneous - Ruma Napoles, L.P.N. - 05/31/2016 9:08 AM CDT Adult Nitrocellulose Operator Intake/History Adult Nitrocellulose Operator Intake/History Entered On: 05/31/2016 9:10 CDT Performed On: 05/31/2016 9:08 CDT by RUMA NAPOLES LPN Intake Systolic Blood Pressure : 112 mmHg Diastolic Blood Pressure : 62 mmHg NIBP Mean : 79 mmHg Height : 170 cm(Converted to: 5 ft 7 inch(es), 67 inch(es)) Actual Weight : 90.7 kg(Converted to: 199 lb 15 oz) Weight Source : Standing scale Dosing Weight Clinic : 90.7 kg Clinic BSA : 2.07 Body Mass Index : 31.38 kg/m2 RUMA NAPOLES LPN - 05/31/2016 9:08 CDT General Info Information Given By : Patient Languages : Nigerien Is Patient Female and 13-50 no hysterectomy : Chika DONYRUMA Lois [facility] - 05/31/2016 9:08 CDT Subjective Pain Symptoms : Chika DONY RUMA A [facility] - 05/31/2016 9:08 CDT Dependent Habits Exposure to Tobacco Smoke : Other: never Smoking Status : Never smoker Tobacco 2A : No Tobacco Use/Currently Using : No Tobacco Use/Last 30 Days : No Tobacco Use/Last 12 months : No DONY, LISA Lois [facility] - 05/31/2016 9:08 CDT Caffeine Use Grid Caffeine Use : Current Type : Coffee Frequency : Daily Amount : 2 cups RUMA NAPOLES [facility] 05/31/2016 9:08 CDT Recreational Drug Use Grid Drug Use : None DONY RUMA A [facility] 05/31/2016 9:08 CDT Source: [employer] Document Id: [id number] CDT!33 documented in this encounter Plan of Treatment Upcoming Encounters Date Type Specialty Care Team Description 11/01/2022 Office Visit Urology Regina Black, SPIKE MACHINE OPERATOR, C.N.P. [address] [phone] (Wo rk) documented as of this encounter Visit Diagnoses Not on filedocumented in this encounter Additional Health Concerns Assessment Noted Time PHQ-9 Depression Total Score: 4 01/12/2016 8:43 AM ANCHORMAN documented as of this encounter
--- OUTSIDE RECORDS SUMMARY | 2022-09-22 13:36 | XMS_ITS | Encounter Summary ---
:1955 Author Organization [facility] Address [address] [place] [address] Care Team Providers Name Role Phone Unavailable Primary Care Provider Unavailable Encounter Details Date Type Department Care Team Description 02/18/2016 Hospital Encounter HX [facility] Yunior Desir M.D. [address] [phone] (Wo rk) Social History [...] How often do you attend anabaptism or adventist services? Never 05/13/2019 Do you [...] at Date Recorded Female 11/29/2017 6:36 PM CONTOUR STITCHER documented as of this encounter Last Filed Vital Signs Vital Sign Reading Time Taken Comments Blood Pressure 118/63 02/18/2016 3:20 PM CDT Pulse 68 02/18/2016 3:20 PM CDT Temperature - - Respiratory Rate - - Oxygen Saturation - - Inhaled Oxygen Concentration - - Weight - - Height 170 cm (5' 6.93) 02/18/2016 3:20 PM CDT Body Mass Index - - [...] documented as of this encounter Consult Notes Ruel Desir M.D. - 02/18/2016 3:16 PM CDT [id number] CHIEF COMPLAINT/REASON FOR VISIT Ringing in ears. HISTORY OF PRESENT ILLNESS Patient is a 60-year-old female seen in consultation at request of Dr. Alarcon here for evaluation of aconstant high pitched ringing type tinnitus in both ears for the last 4 months. She started Wellbutrin and noted onset of tinnitus 3 days afterwards. She quit Wellbutrin after 9 days, however, has had persistent tinnitus since that time. She had thyroid surgery in May of 2015. She does not note any subjective hearing loss. No vertigo, imbalance or dizziness. No pressure or plugging in the ears. No pain or otorrhea. No recurrent infections. She is able to mask the ears with a running brook and cricket white noise. MEDICATIONS Reviewed in EMR. ALLERGIES Penicillin, sulfa, Vitron-C, Wellbutrin, fluoxetine. PAST MEDICAL/SURGICAL HISTORY Reviewed in the EMR. SOCIAL HISTORY Patient has never smoked. She has 2 cups of caffeine per day. Infrequent alcohol use. PHYSICAL EXAMINATION VITAL SIGNS: Blood pressure 118/63, pulse 68, temp 36.7 degrees. GENERAL APPEARANCE: Healthy-appearing middle-aged female. Alert and oriented, in no acute distress. Communicates well. HEENT: Skin of the head neck is normal. Head is normocephalic. EARS: External ears normal. Otomicroscopic exam reveals normal ear canals tympanic membranes and clear middle ear spaces bilaterally. NEUROLOGIC: Cranial nerves are intact. No spontaneous nystagmus noted. Audiologic evaluation revealsa mild high-frequency sensorineural hearing loss in the right ear, 30 to 35 decibels at 6000 and 8000 Hz and a 30-decibel hearing level on the left ear at 2000 Hz, 20 at 4000 Hz and 45 at 6000 Hz. She has bilateral 100% discrimination. Bilateral normal tympanometry. IMPRESSION/REPORT/PLAN 1. Bilateral tinnitus. 2. Asymmetric sensorineural hearing loss. PLAN: Discussed findings with patient. Discussed diagnosis. Discussed exacerbating factors for tinnitus. Discussed lack of cure. I advised continued masking. I discussed further evaluation with MRI scan of the internal auditory canal without contrast. She is agreeable to this. Will call with the results. Discussed noise protection. Would recommend repeat audiologic evaluation in 6 to 12 months, sooner on an as-needed basis for any changes. Ruel Desir M.D./imani Electronically Signed By: RUEL DESIR MD On: 04/01/2016 01:35 PM Source: [facility] MHSDOLBEYNONRADSYS Document Id: [id number] documented in this encounter Miscellaneous Notes Miscellaneous - Blanca Anderson, LJuanchoP.N. - 02/19/2016 9:04 AM CDT [facility] iacs Document Contains Addenda Addendum by BLANCA ANDERSON LPN on February 19, 2016 14:13:58 CDT Noted. Order faxed and [facility] to contact pt to schedule. Addendum by BRITNEY GUNTER on February 19, 2016 14:02:59 CDT From: BRITNEY GUNTER ([facility] Contact Center Team Lead/Radiology Outside [facility]) To: Ears Nose Throat/Audiology Nurse; Sent: 02/19/2016 14:02:59 CDT Subject: RE: [facility] iacs No auth needed, insurance referral completed. From: BLANCA ANDERSON LPN ( Ears Nose Throat/Audiology Nurse) To: [facility] Contact Center Team Lead/Radiology Outside [facility]; Sent: 02/19/2016 09:04:42 CDT Subject: [facility] iacs Patient Referred to Provider or Facility: [facility] Radiology Ordering Provider: Dr. Edmund Desir Appointment Date (if known): _to be scheduled once preauth checked Imaging Service Ordered: (list CPT code or body part to be scanned) _MRI IACs without contrast _ W/ Contrast _ W/O Contrast _ W/O Contrast followed by with _ _ CT/CTA _x MRI _ MRA _ PET _ Other: (list): _ Diagnosis (CPT code if Known): asymmetric hearing loss sensorineural and bilateral tinnitus Injury Related _ Yes _ No If yes, date and type of injury: _ Source: [facility] POWERCHART Document Id: [id number] Electronically signed by Harpal [facility] J2Ee Consultant [id number] at 04/09/2017 7:59 PM CDT Miscellaneous - Ruel Desir M.D. - 02/18/2016 3:39 PM CDT Ambulatory Patient Summary [facility] [address] [place] [phone] Visit Information Name: ALFREDO OLIVEROS [facility] Number: [phone] Current Date: 02/18/2016 15:39:23 Physicians Attending Provider: RUEL DESIR MD Primary Care Provider: FORTINO ALARCON MD ALFREDO OLIVEROS PABLO has been given [...] Take Indications/Special Instructions/Comments/Notes for Patient Medication Changes/Routing ascorbic acid (Vitamin C) 500 mg, Oral, once a day bifidobacterium-lactobacillus (Probiotic Formula oral capsule) 1 cap, Oral, once a day busPIRone (BuSpar 5 mg oral tablet) 1 Tablet(s), Oral, three times a day cholecalciferol (Vitamin D3 1000 intl units oral tablet) 1 Tablet(s), Oral, once a day clonazePAM (clonazePAM 1 mg oral tablet) 1 Tablet(s), Oral, three times a day doxepin (doxepin 10 mg oral capsule) 1 cap, Oral, once a day (at bedtime) levothyroxine (Synthroid 25 mcg (0.025 mg) oral tablet) 1.5 Tablet(s), Oral, once a day (in the morning) Dose increased 02/01/2016. On empty stomach. liothyronine (liothyronine) 25 mcg, 0.5 tab(s), Oral, once a day (in the morning) magnesium oxide (magnesium oxide 250 mg oral tablet) 2 Tablet(s), Oral, once a day multivitamin (Vitamin B Complex 100) 1 Tablet(s), Oral, once a day omega-3 polyunsaturated fatty acids (Fish Oil oral capsule) 1 cap, Oral, once a day ranitidine (Zantac 75) 75 mg, Oral, two times a day as needed Stop Taking the Following Medications: Medication list as of 02-18-16 15:39 Attention: If you have any medications at home that are not on this list, DO NOT take them until youcontact your provider for clarification. Give a copy of your medication list to your primary care provider. Update your medication list any time medications or doses are changed and carry your medication list at all times in case of emergency. Electronically Signed By: RUEL DESIR MD Signed On:18-FEB-2016 15:39:13 Your Allergies & Intolerances Substance Reaction Symptoms [...] Rosacea NOS Active High Risk Medication Active Your Upcoming Appointments Date Time Location Provider 02/23/2016 13:30 [facility] InternJuan J Chang MD, Rigo Lopes 04/13/2016 08:45 [facility] InternJuan J Alarcon MD, [place] 05/18/2016 08:15 [facility] 05/18/2016 [...] if you dont have one. Go to [email or web address] and click on Create Your Account. Then, follow the directions to complete the online form. Youll be asked for your [facility] number which you can find at the top of this document. Your Goals/Additional instructions: Source: [facility] POWERCHART Document Id: [id number] Miscellaneous - Ruel Desir M.D. - 02/18/2016 3:39 PM CDT Ambulatory Discharge Medication List [address] [id number] Visit Information Name: ALFREDO OLIVEROS [facility] Number: [phone] Visit Date: 02/18/2016 15:39:22 Attending Provider: RUEL DESIR MD Primary Care Provider: FORTINO ALARCON MD ALFREDO OLIVEROSE has been given the following list of medications: Your Medications It is important to take your medications as directed. Use a pill box or chart to help remind you to take your medications. Please let your doctor or nurse know if you have problems taking your medications. Medication/Strength How to Take Indications/Special Instructions/Comments/Notes for Patient Medication Changes/Routing ascorbic acid (Vitamin C) 500 mg, Oral, once a day bifidobacterium-lactobacillus (Probiotic Formula oral capsule) 1 cap, Oral, once a day busPIRone (BuSpar 5 mg oral tablet) 1 Tablet(s), Oral, three times a day cholecalciferol (Vitamin D3 1000 intl units oral tablet) 1 Tablet(s), Oral, once a day clonazePAM (clonazePAM 1 mg oral tablet) 1 Tablet(s), Oral, three times a day doxepin (doxepin 10 mg oral capsule) 1 cap, Oral, once a day (at bedtime) levothyroxine (Synthroid 25 mcg (0.025 mg) oral tablet) 1.5 Tablet(s), Oral, once a day (in the morning) Dose increased 02/01/2016. On empty stomach. liothyronine (liothyronine) 25 mcg, 0.5 tab(s), Oral, once a day (in the morning) magnesium oxide (magnesium oxide 250 mg oral tablet) 2 Tablet(s), Oral, once a day multivitamin (Vitamin B Complex 100) 1 Tablet(s), Oral, once a day omega-3 polyunsaturated fatty acids (Fish Oil oral capsule) 1 cap, Oral, once a day ranitidine (Zantac 75) 75 mg, Oral, two times a day as needed Stop Taking the Following Medications: Medication list as of 02-18-16 15:39 Attention: If you have any medications at home that are not on this list, DO NOT take them until youcontact your provider for clarification. Give a copy of your medication list to your primary care provider. Update your medication list any time medications or doses are changed and carry your medication list at all times in case of emergency. Electronically Signed By: RUEL DESIR MD Signed On:18-FEB-2016 15:39:13 Additional Information: Source: [facility] AppdraCHART Document Id: [id number] Miscellaneous - Marco Perez L.P.N. - 02/18/2016 3:20 PM CDT Adult Manager Of Training Intake/History Adult Manager Of Training Intake/History Entered On: 02/18/2016 15:24 CDT Performed On: 02/18/2016 15:20 CDT by MARCO PEREZ VEHICLE CONTROLS ENGINEER Intake Chief Complaint : Tinnitis BL constant, patient has other health issues which she would like to discuss if they could be contributing to tinnitis, Onset of Symptoms : October 2015, started after 3 days of taking Rx wellbutrtin Temperature Core : 36.7 DegC(Converted to: 98.1 DegF) Peripheral Pulse Rate : 68 /min Systolic Blood Pressure : 118 mmHg Diastolic Blood Pressure : 63 mmHg NIBP Mean : 81 mmHg BP Location : Left upper extremity Blood Pressure Cuff Size : Regular Height : 170 cm(Converted to: 5 ft 7 inch(es), 67 inch(es)) MARCO PEREZ LPN - 02/18/2016 15:20 CDT General Info Information Given By : Patient Preferred Communication Mode : Verbal Languages : Khmer Is Patient Female and 13-50 no hysterectomy : MARCO Enrique LPN - 02/18/2016 15:20 CDT Subjective Pain Symptoms : MARCO Enrique LPN - 02/18/2016 15:20 CDT Dependent Habits Exposure to Tobacco Smoke : Other: never Smoking Status : Never smoker Tobacco 2A : No Tobacco Use/Currently Using : No Tobacco Use/Last 30 Days : No Tobacco Use/Last 12 months : No MARCO PEREZ LPN - 02/18/2016 15:20 CDT Caffeine Use Grid Caffeine Use : Current Type : Coffee Frequency : Daily Amount : 2 cups MARCO PEREZ LPN - 02/18/2016 15:20 CDT Recreational Drug Use Grid Drug Use : None MARCO PEREZ LPN - 02/18/2016 15:20 CDT [facility] VisionsCH[facility] Document Id: [id number] CDT!35 documented in this encounter Plan of Treatment Upcoming Encounters Date Type Specialty Care Team Description 11/01/2022 Office Visit Urology Regina Black, DIANN, C.N.P. [address], [place] [phone] (Wo rk) documented as of this encounter Visit Diagnoses Not on filedocumented in this encounter Additional Health Concerns Assessment Noted Time PHQ-9 Depression Total Score: 4 01/12/2016 8:43 AM CONTOUR STITCHER documented as of this encounter
--- OUTSIDE RECORDS SUMMARY | 2022-09-22 13:37 | XMS_ITS | Encounter Summary ---
:1955 Author Organization [facility] Address [address] [place] [address] Care Team Providers Name Role Phone Unavailable Primary Care Provider Unavailable Encounter Details Date Type Department Care Team Description 10/16/2015 Hospital Encounter HX NO MAPPING Dionna Shaw M.D. [address] [phone] (Wo rk) Social History [...] How often do you attend pentecostalism or taoist services? Never 05/13/2019 Do you [...] at Date Recorded Female 11/29/2017 6:36 PM SMOKE EATER documented as of this encounter Medications at [...] Visit Urology Regina Black, DIANN, C.N.P. [address] [phone] (Wo rk) documented as of this encounter Visit Diagnoses Not on filedocumented in this encounter
--- OUTSIDE RECORDS SUMMARY | 2022-09-22 13:37 | XMS_ITS | Encounter Summary ---
:1955 Author Organization [facility] Address [address] [place] [address] Care Team Providers Name Role Phone Unavailable Primary Care Provider Unavailable Encounter Details Date Type Department Care Team Description 07/18/2015 Hospital Encounter HX [facility] Fortino Montana M.D. [address] [place] [address] 761 Social History Tobacco Use Types Packs/Day [...] er 09/12/2022 How often do you attend caodaism or jewish services? 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 - 07/18/2015 9:56 AM CDT [id number] CHIEF COMPLAINT/ REASON FOR VISIT Followup after right thyroid lobectomy and isthmusectomy. HISTORY OF PRESENT ILLNESS Alfredo is a 59-year-old female who presents to the clinic today for the above complaint. I last saw her on 05/09/2015. She had right thyroid lobectomy and isthmusectomy on 06/06/[address] Mario Sarmiento at [facility] for benign follicular adenoma. I reviewed report. We will check TSH today. We willdiscuss medication and treatment after test results. Her last TSH was 2.62 on 01/10/2015. We discussed symptoms and signs suggestive of hypothyroidism/underactive thyroid. She should watch for weight gain, cold intolerance, constipation, fatigue, and dry skin. She denies any of these symptoms. She feels better after surgery. She still has some pain, discomfort when she goes from a horizontal to vertical position. She mentioned that the anesthesia was difficult to come out of and would like a list ofthe medication given to her during that time. She has been more emotional after surgery. She mostly has mild anxiety towards the end of the day. Patient mentioned that she has right upper arm pain since before her surgery. She has history of right broken arm in March 2013. She was actively painting with her right arm for the last few months. We should repeat right shoulder x-ray. I also suggested she do physical therapy. She would like to go to [place] for physical therapy. She is due for gynecological exam and mammogram in 09/2015. Otherwise, there are no additional questions, concerns, or complaints. MEDICATIONS Reviewed and updated as per the EHR on 07/18/2015. ALLERGIES Reviewed and updated as per the EHR on 07/18/2015. SYSTEMS REVIEW As per the history of present illness. All other systems are reviewed and are negative. PAST MEDICAL/ SURGICAL HISTORY Reviewed and updated as per the EHR on 07/18/2015. PREVENTIVE SERVICES Reviewed and updated as per the EHR on 07/18/2015. SOCIAL HISTORY Reviewed and updated as per the EHR on 07/18/2015. FAMILY HISTORY Reviewed and updated as per the EHR on 07/18/2015. VITAL SIGNS HEIGHT: 170 cm. WEIGHT: 83.5 kg. BMI: 28.89 kg/m2. PULSE: 69 /min. RESP: 16 /min. SYSTOLIC: 99 mmHg. DIASTOLIC: 62 mmHg. PHYSICAL EXAMINATION GENERAL: Patient is sitting. No distress. Able to talk without interruption. LYMPH NODES: No cervical or supraclavicular lymphadenopathy. JOINTS: No joint swelling or deformity. No decreased range of motion. EXTREMITIES: No clubbing, cyanosis, edema, infection, or calf tenderness. MENTAL: Alert and oriented x 3. Normal mood and affect. NEURO: Intact cranial nerves. Intact sensory and motor. 2+ DTRs throughout. Equal on both sides. IMPRESSION/ REPORT/ PLAN 1. Status post right thyroid lobectomy and isthmusectomy, 06/06/2015. She is doing well. Incision iswell healed. She can swim. We discussed symptoms and signs suggestive of hypothyroidism. We will check TSH today and make recommendation after results. We need to check thyroid function tests at least o nce a year or earlier if she has symptoms of hypothyroidism. 2. Right arm pain. She has history of right arm fracture in March 2013. She noticed more pain with decreased range of motion after painting. We discussed possible etiologies and further evaluation and management. We will check right shoulder x-ray today. Referral was done for physical therapy in [place]. She doesnt need prescription pain medication at this time. 3. Anxiety state. I explained to her that it is normal to have anxious feeling following what she's been through including thyroid surgery. It should be getting better. If she continues to have problem, we should have Psychologist consult. We can start medication at any time as indicated. 4. Preventative services. She is due for gynecological exam. Refer her to see Dr. Laquita Shaw, Table Assembler for physical exam and screening mammogram. Todays studies: TSH and Right shoulder x-ray. She will be notified with results and recommendations. The patient will return to the clinic as previously scheduled. This document serves as a record of services personally performed by Dr. Fortino Alarcon. It was created on their behalf by Denny Newman, a trained mobile paramedical examiner. The creation of this record is based on the scribe's personal observations and the provider's statements to them. This document has been checked and approved by the attending provider. Fortino Alarcon M.D./mirian Electronically Signed By: FORTINO ALARCON MD On: 07/26/2015 09:17 PM Modified by and Electronically Signed by: FORTINO ALARCON MD On: 07/26/2015 09:17 PM Source: [facility] MHSDOLBEYNONRADSYS Document Id: [id number] documented in this encounter Miscellaneous Notes Miscellaneous - Fortino Alarcon M.D. - 07/21/2015 9:41 PM CDT Right shoulder x-ray 07/18/2015 From: FORTINO ALARCON MD To: ALFREDO OLIVEROS Cc: KEDAR Alarcon Nurse; Sent: 07/21/2015 21:41:11 CDT Subject: Right shoulder x-ray 07/18/2015 Actions: Notify patient of results Hi Alfredo, Your right shoulder x-ray is normal. Please let me know if you continues to have pain or worsening of pain/discomfort. Dr. Fortino Alarcon Result type: XR Shoulder Right 2 or more views Result date: 18 July 2015 10:54 CDT Result status: Auth (Verified) Result title: XR Shoulder Right 2 or more views Performed by: LYLE BELTRAN MD on 18 July 2015 11:09 CDT Verified by: LYLE BELTRAN MD on 18 July 2015 11:09 CDT Encounter info: [id number], [place] [address], Clinic Outpatient, 07/18/2015 - * Final Report * Reason For Exam Pain. History of fracture March 2013. Report EXAM: XR Shoulder Right 2 or more views INDICATION: Pain. History of fracture March 2013. FINDINGS/IMPRESSION: Multiple views of the right shoulder show no acute fracture, dislocation, soft tissue abnormality. Source: [facility] POWERCHART Document Id: [id number] Electronically signed by Harpal [facility] Control Electrician [id number] at 04/11/2017 8:02 PM CDT Miscellaneous - Fortino Alarcon M.D. - 07/18/2015 10:31 AM CDT Ambulatory Patient Summary [address] [id number] Visit Information Name: ALFREDO OLIVEROS [facility] Number: [id number] Current Date: 07/18/2015 10:31:20 Physicians Attending Provider: FORTINO ALARCON MD Primary [...] Take Indications/Special Instructions/Comments/Notes for Patient Medication Changes/Routing bifidobacterium-lactobacillus (Probiotic Formula oral capsule) 1 cap, Oral, once a day cholecalciferol (Vitamin D3 1000 intl units oral tablet) 1 Tablet(s), Oral, once a day *clonazePAM (clonazePAM 1 mg oral tablet) 1 Tablet(s), Oral, three times a day multivitamin, ( 1 oral capsule) 1 cap, Oral, once a day One by [employer] omega-3 polyunsaturated fatty acids (Fish Oil oral [...] as possible. Stop Taking the Following Medications: Medication list as of 07-18-15 10:31 Attention: If you have any medications at [...] Electronically Signed By: FORTINO ALARCON MD Signed On:18-JUL-2015 10:31:12 Your Allergies & Intolerances Substance Reaction Symptoms Category Comments penicillins Hives Drug PENICILLINS sulfa drugs Rash Drug SULFA DRUGS Vitron-C Drug FLUoxetine Hives Drug FLUOXETINE HCL - Prozac Your Problem List Problem Status Onset Comments Anxiety State, Unspecified Active 12/01/2005 02/09/14 Anxiety state, unspecified Rosacea Active 12/01/2005 02/09/14 Rosacea Hiatal hernia per EGD 08/2013 Active Diverticulosis Colon Active Apnea Sleep Obstructive (ABRAHAN) Active Hyperkalemia Active Nodule Thyroid ? Right lobe Active Cancer Thyroid Fam Hx Active Disease Gastroesophageal Reflux (GERD ELE) Active Impaired (IFG) Fasting Glucose Active Hyperlipidemia, Borderline per [facility] Active Elevated Liver Function Test (LFT) Active Your Upcoming Appointments Date Time Location Provider 08/11/2015 09:00 [facility] 08/11/2015 09:00 [facility] 08/15/2015 11:15 [facility] Fortino Montana MD 01/12/2016 08:45 [facility] Fortino Alarcon MD Attention: Contact your [...] if you dont have one. Go to [email or web address] and click on Create Your Account. Then, follow the directions to complete the online form. Youll be asked for your [facility] number which you can find at the top of this document. Your Goals/Additional instructions: Source: [facility] POWERCHART Document Id: [id number] Miscellaneous - Fortino Alarcon M.D. - 07/18/2015 10:31 AM CDT Ambulatory Discharge Medication List [address] [id number] Visit Information Name: SHARONDAALFREDO PABLO [facility] Number: [id number] Visit Date: 07/18/2015 10:31:19 Attending Provider: FORTINO ALARCON MD Primary Care Provider: FORTINO ALARCON MD SHARONDAALFREDO PABLO has been given the following list of medications: Your Medications It is important to take your medications as directed. Use a pill box or chart to help remind you to take your medications. Please let your doctor or nurse know if you have problems taking your medications. Medication/Strength How to Take Indications/Special Instructions/Comments/Notes for Patient Medication Changes/Routing bifidobacterium-lactobacillus (Probiotic Formula oral capsule) 1 cap, Oral, once a day cholecalciferol (Vitamin D3 1000 intl units oral tablet) 1 Tablet(s), Oral, once a day *clonazePAM (clonazePAM 1 mg oral tablet) 1 Tablet(s), Oral, three times a day multivitamin, ( 1 oral capsule) 1 cap, Oral, once a day One by [employer] omega-3 polyunsaturated fatty acids (Fish Oil oral [...] as possible. Stop Taking the Following Medications: Medication list as of 07-18-15 10:31 Attention: If you have any medications at [...] Electronically Signed By: FORTINO ALARCON MD Signed On:18-JUL-2015 10:31:12 Additional Information: Source: [facility] POWERCHART Document Id: [id number] Miscellaneous - Margarita Camacho, LJuanchoPJuanchoN. - 07/18/2015 10:03 AM CDT Adult First Officer Intake/History Adult First Officer Intake/History Entered On: 07/18/2015 10:05 CDT Performed On: 07/18/2015 10:03 CDT by MARGARITA CAMACHO LPN Intake Chief Complaint : 1. Follow-up after thyroid surgery on 06/07/2015 at [place] 2. Right Upper Arm pain Peripheral Pulse Rate : 69 /min Respiratory Rate : 16 /min Systolic Blood Pressure : 99 mmHg Diastolic Blood Pressure : 62 mmHg NIBP Mean : 74 mmHg BP Location : Left upper extremity Blood Pressure Cuff Size : Large Height : 170 cm(Converted to: 5 ft 7 inch(es), 67 inch(es)) Actual Weight : 83.5 kg(Converted to: 184 lb 1 oz) Weight Source : Standing scale Dosing Weight Clinic : 83.5 kg Clinic BSA : 1.99 Body Mass Index : 28.89 kg/m2 MARGARITA CAMACHO LPN - 07/18/2015 10:03 CDT General Info Information Given By : Patient Preferred Communication Mode : Verbal, Written Languages : Kiswahili Is Patient Female and 13-50 no hysterectomy : No DOUG MARGARITA MILTON LPN - 07/18/2015 10:03 CDT Subjective Pain Symptoms : Yes MARGARITA CAMACHO LPN - 07/18/2015 10:03 CDT Pain Scale Pain Scale Verbal 0-10 : Open DOUG MARGARITA MILTON LPN - 07/18/2015 10:03 CDT Pain Pain Assessment Grid Pain 1 Location : Upper arm Laterality : Right DOUG MARGARITA MILTON LPN - 07/18/2015 10:03 CDT Dependent Habits Tobacco Use/Currently Using : No Tobacco Use/Last 12 months : No Exposure to Tobacco Smoke : Other: never Smoking Status : Never smoker MARGARITA CAMACHO LPN - 07/18/2015 10:03 CDT Caffeine Use Grid Caffeine Use : Current Type : Coffee Frequency : Daily Amount : 2 cups MARGARITA CAMACHO LPN - 07/18/2015 10:03 CDT Recreational Drug Use Grid Drug Use : None MARGARITA CAMACHO LPN - 07/18/2015 10:03 CDT Source: [employer] Document Id: [id number] CDT!44 Miscellaneous - Margarita Camacho LJuanchoP.N. - 07/18/2015 10:02 AM CDT Health Assessment Health Assessment Entered On: 07/18/2015 10:03 CDT Performed On: 07/18/2015 10:02 CDT by MARGARITA CAMACHO LPN Health Assessment Complete Health Assessment Complete or Modified : Annual Health Assessment Annual Health Assessment Completed : Yes MARGARITA CAMACHO LPN - 07/18/2015 10:02 CDT Nutrition Nutrition Risk Factors by History Adult : None MARGARITA CAMACHO LPN - 07/18/2015 10:02 CDT Functional Current Daily Living Assistance : None MARGARITA CAMACHO LPN - 07/18/2015 10:02 CDT Dependent Habits Tobacco Use/Currently Using : No Tobacco Use/Last 12 months : No Exposure to Tobacco Smoke : Other: never Smoking Status : Never smoker MARGARITA CAMACHO SWITCHBOARD INSTALLER - 07/18/2015 10:02 CDT Caffeine Use Grid Caffeine Use : Current Type : Coffee Frequency : Daily Amount : 2 cups MARGARITA CAMACHO SWITCHBOARD INSTALLER - 07/18/2015 10:02 CDT Recreational Drug Use Grid Drug Use : None MARGARITA CAMACHO SWITCHBOARD INSTALLER - 07/18/2015 10:02 CDT Psychosocial Domestic Abuse Concerns : None Behavioral Health Screen/Safety Assmt : No Adventism Preference : Jewish MARGARITA CAMACHO [facility] - 07/18/2015 10:02 CDT Advance Directive Advanced Directives : Yes Advance Directive Type : Living will Advance Directive Location : Family to bring in copy from home Advance Directive Intent Stated By : Self Intent of Advance Directive (In Patient's Own Words) : DNR / DNI MARGARITA CAMACHO SWITCHBOARD INSTALLER - 07/18/2015 10:02 CDT Educ Needs Learning Style Preference Adult Grid Patient : Printed materials, Verbal explanation Family : None MARGARITA CAMACHO ROBIN - 07/18/2015 10:02 CDT Source: [employer] Document Id: [id number] CDT!36 documented in this encounter Plan of Treatment Upcoming Encounters Date Type Specialty Care Team Description 11/01/2022 Office Visit Urology Regina Black APRN, C.N.P. [address] [phone] (Wo rk) documented as of this encounter Procedures Procedure Name Priority Date/Time Associated Diagnosis Comme nts DX SHOULDER RIGHT Routine 07/18/2015 10:18 AM Res ults for this 2+ VIEWS CDT procedure are i n the results section. documented in this encounter Results DX Shoulder Right 2+ Views (07/18/2015 10:18 AM CDT) Anatomical Region Laterality Modality Upper Extremity, Shoulder Right Radiographic I maging Specimen (Source) Anatomical Collection Method Collection Time Re ceived Time Location / / Volume Laterality 07/18/2015 10:18 AM CDT Impressions 07/18/2015 11:09 AM CDT Multiple views of the right shoulder show no acute fracture, dislocation, soft tissue abnormality. Narrative 07/18/2015 11:09 AM CDT EXAM: XR Shoulder Right 2 or more views INDICATION: Pain. History of fracture 2012. FINDINGS/ Procedure Note Lyle Beltran M.D. / Provider, Alok morris M.D. - 03/23/2017 EXAM: XR Shoulder Right 2 or more views INDICATION: Pain. History of fracture 2012. FINDINGS/IMPRESSION: Multiple views of t he right shoulder show no acute fracture, dislocation, soft tissue abnormality. Regina Lopes.T.(R), R.TJuancho(R)(M) IMG DIAGNOSTIC IMAGING PROCEDURES documented in this encounter Visit Diagnoses Not on filedocumented in this encounter
--- OUTSIDE RECORDS SUMMARY | 2022-09-22 13:37 | XMS_ITS | Encounter Summary ---
:1955 Author Organization [facility] Address [address] [place] [address] Care Team Providers Name Role Phone Unavailable Primary Care Provider Unavailable Encounter Details Date Type Department Care Team Description 08/11/2015 Hospital Encounter HX [facility] Cindy Alarcon M.D. [address] [facility], [facility] [address] [place] [phone] Social History Tobacco Use Types Packs/Day [...] How often do you attend worship or congregational services? 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 [address] [place] [phone] (Wo rk) documented as of this encounter Procedures Procedure Name Priority Date/Time Associated Diagnosis Comme nts T3 Routine 08/11/2015 9:00 AM Results f or this (TRIIODOTHYRONINE), CDT procedur e are in FREE, S the results section. T4 (THYROXINE), Routine 08/11/2015 9:00 AM Result s for this FREE, S CDT procedure are i n the results section. documented in this encounter Results (ABNORMAL) T4 (Thyroxine), Free (08/11/2015 9:00 AM CDT) P athologist Signature T4 0.82 (L) 0.90 - POWERCHART (Thyroxine), 1.70 NGDL Free, S Specimen (Source) Anatomical Collection Method Collection Time Re ceived Time Location / / Volume Laterality Blood 08/11/2015 9:00 AM CDT Cindy Alarcon M.D. LAB BLOOD ADD-ON Performing Organization Address City/State/ZIP Code Phon e Number POWERCHART T3 (Triiodothyronine), Free (08/11/2015 9:00 AM CDT) P athologist Signature T3 2.3 2.0 - 3.5 POWERCHART (Triiodothyroni PGML ne), Free, S Comment: Test Performed by: [place] [address] Cd Reactor Operator Head: Maximo Liz II, M.D., Ph.D. Specimen (Source) Anatomical Collection Method Collection Time Re ceived Time Location / / Volume Laterality Blood 08/11/2015 9:00 AM CDT Cindy Alarcon M.D. LAB BLOOD ADD-ON Performing Organization Address City/State/ZIP Code Phon e Number POWERCHART documented in this encounter Visit Diagnoses Not on filedocumented in this encounter
--- OUTSIDE RECORDS SUMMARY | 2022-09-22 13:37 | XMS_ITS | Encounter Summary ---
:1955 Author Organization [facility] Address [address] [place] [address] Care Team Providers Name Role Phone Unavailable Primary Care Provider Unavailable Encounter Details Date Type Department Care Team Description 10/16/2015 Hospital Encounter HX [facility] Hola Alicea M.D. [address] [place], [place] [phone] (Wo rk) Social History [...] How often do you attend denominational or cheondoism services? Never 05/13/2019 Do you [...] at Date Recorded Female 11/29/2017 6:36 PM NYLON WINDER documented as of this encounter Last Filed Vital Signs Vital Sign Reading Time Taken Comments Blood Pressure 104/62 10/16/2015 8:27 AM NYLON WINDER Pulse 62 10/16/2015 8:27 AM NYLON WINDER Temperature - - Respiratory Rate 16 10/16/2015 8:27 AM NYLON WINDER Oxygen Saturation - - Inhaled Oxygen Concentration - - Weight 86.9 kg (191 lb 9.3 oz) 10/16/2015 8:27 AM NYLON WINDER Height 170 cm (5' 6.93) 10/16/2015 8:27 AM NYLON WINDER Body Mass Index 30.07 10/16/2015 8:27 AM NYLON WINDER documented in this encounter Medications at Time of Discharge Medication Sig Dispensed Refills Start Date End Date miscellaneous medical autoSV, heated 0 09/20/2014 supply misc humidifier, mask, headgear, filters and tubing. Length of Need: 99 raNITIdine (for_ZANTAC) 75 Take 75 mg by mouth 0 08/12/2014 05/12/2018 mg tablet once as needed. documented as of this encounter H&P Notes Radha Sanchez M.D. - 10/16/2015 8:20 AM CST [id number] CHIEF COMPLAINT/REASON FOR VISIT Annual ACID PURIFIER exam. HISTORY OF PRESENT ILLNESS Alfredo is a 59-year-old para 0-0-3-0 female who presents for annual ACID PURIFIER exam today. The patient is followed by Dr. Alarcon for her chronic medical issues and had a full followup on all of her chronic issues on 08/15/2015. At that time, she stated that she was feeling well and did not start levothyroxine even though she had a history of an elevated TSH and free T4 that was slightly low but free T3 that was within the normal limits. 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 However, today she reports that she feels increasingly anxious, does not sleep very well and describes being foggy mentally. She wonders what the cau se of this might be. She reports that her mental stamina is not what she used to experience. She reports that her job is very mentally demanding and she does not do as well as she used to with that. She also has recently become sexually active and in the last couple of months has had intercourse about 4 times. She has experienced vaginal dryness and attempts to use saliva as a lubricant and feels that helps significantly. She also feels there may be a fold of skin in the way of penetration and if they take it slow this seems to resolve. She denies any pain or bleeding specifically with intercourse. Otherwise she reports that she is doing well and as noted above she has several chronic medical issues that are all followed by her primary provider, Dr. Alarcon. MEDICATIONS See medication list, updated in the EMR today. ALLERGIES See allergy list, updated in the EMR today. SYSTEMS REVIEW GENERAL: Positive for fatigue, less mental endurance than she had in the past - see HPI. No fevers, chills, unintentional weight loss or weight gain. HEENT: Positive for dry eyes. No changes in vision or hearing, no sore throat or nasal congestion. CARDIOVASCULAR: No chest pain, irregular heartbeat or racing heart. RESPIRATORY: No shortness of breath, cough or wheeze. GASTROINTESTINAL: Positive foracid in her stomach. No nausea, vomiting, diarrhea, constipation or abdominal pain. GENITOURINARY:No pain or burning with urination, no irregular vaginal bleeding, heavy periods, painful periods, abnormal vaginal discharge, leaking urine, leaking stool or gas. SKIN: Positive for seborrheic keratoses. No rashes or skin lesions. BREASTS: No masses or lumps, no discharge from the nipples. NEUROLOGIC:No difficulty with memory, numbness, tingling, falls. PSYCHIATRIC: Positive for anxiety and difficulty sleeping long. No depression. ENDOCRINE: Positive for heat and cold intolerance, excessive thirst or hair loss. PAST MEDICAL/SURGICAL HISTORY PAST MEDICAL HISTORY: See problem list updated in the EMR today. PAST SURGICAL HISTORY: See procedure list updated in the EMR today. OB-ACID PURIFIER HISTORY Para 0-0-3-0 female, status post 2 elective abortions and 1 spontaneous , she has no historyof STDs and does have a history of an abnormal Pap smear requiring colposcopy in 1997 but no treatment and she has had no abnormal since that time. She has a history of menarche at 14 and menopause at age 50 and had very light periods throughout her life. She does occasionally feel warm and have heat intolerance due to menopause. As noted in the HPI she has recently become sexually active over the last several months and has had some vaginal dryness. PREVENTATIVE SERVICES Most of these are followed by her primary provider, Dr. Alarcon. Tobacco use: Negative. Last Pap smear 06/22/2013, done in [place] [facility]. Last mammogram 09/15/2015. Last bone density testing unknown. Last colon screening 09/27/2013. Last tetanus vaccination 06/22/2013. Last fasting lipid panel 08/11/2015, and she does have a history of depression with a PHQ-9 score of 4 today. SOCIAL HISTORY No tobacco, alcohol, or drug use. She denies any concerns about abuse. She is in a committed relationship of 20 years. She is sexually active with 1 male partner. 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 She walks 3 to 4 times per week about 1 mile each time and always wears her seatbelt in a motor vehicle. FAMILY HISTORY Please see family history section updated in EMR today. VITAL SIGNS See results resection in the EMR PHYSICAL EXAMINATION GENERAL: Well nourished female in no acute distress. SKIN: No rashes. Positive for multiple seborrheic keratoses located diffusely throughout her body. HEAD: Normocephalic, atraumatic. EYES: Sclerae without injection or icterus. Extraocular movements are intact except the left eye will not move medially. ENT: Tympanic membranes pearly white. Positive light reflex. Posterior oropharynx without erythema or exudates. Good dentition. LYMPH [...] GENITALIA: External genitalia with sparse pubic hair distribution, there are structural changes withagglutination of the labia minora to the labia majora and some obliteration of the clitoral doyle. The skin appears pale and atrophic and fragile, the urethral meatus is normal location and appearance without masses, the vaginal mucosa is pink and moist, though somewhat thin appearing and this is without gross lesions or abnormalities, the cervix appears nulliparous and is without gross lesions or abnormalities. SPINE: No spinal, paraspinal or CVA tenderness. EXTREMITIES: Lower extremities nontender. No edema. GAIT: Normal. MENTAL: Alert and oriented times three. Affect pleasant. Mood happy. NEUROLOGIC: Cranial nerves II through XII grossly intact. Reflexes 2+ at patellas. IMPRESSION/REPORT/PLAN A 59-year-old para 0-0-3-0 female who presents for annual gynecologic exam today and describes some anxiety symptoms as well as concern about her mental stamina. 1. Preventative services: As noted above, Dr. Alarcon follows her for most of her preventative servicesissues. Her last Pap smear was done on 06/22/2013 at [facility] but I cannot find the actual report to see whether it was cytology are RADHA testing. Therefore, we will plan just to repeat this in 3 years. Mammogram, colon screening, tetanus vaccination and fasting lipid panel are all up to date at thistime. She is in need of bone density testing. She will schedule that on her way out. She was encouraged to continue her regular exercise and seatbelt use. 2. Issues with mental stamina and anxiety as well as difficulty sleeping: The patient has been diagnosed with anemia in the past and obstructive sleep apnea. She has been evaluated on multiple occasions for issues with fatigue. She feels that overall she is doing better but still does not feel like she is where she should be. We discussed that her thyroid has been abnormal in the past and this can contribute to similar symptoms. She has been hesitant to take medication in the past because she felt that once she started it she would need to continue it. We discussed that I think she really has nothing to lose at least trying the medication to see if she feels like her symptoms improve with it. She does feel like these symptoms all started before she had her thyroid surgery in the summer but regardless I feel that it may be helpful for her to try the therapy. We will recheck her TSH, free T4 and T3 today and if it is still abnormal I will refer her back to Dr. Alarcon to initiate therapy. She does report that she continues to use her continuous positive airway pressure and that her anemia has resolved. Again with these treatments her fatigue has significantly improved. 3. Vaginal dryness: The patient does have evidence of vulvovaginal atrophy on examination today but with saliva her vaginal dryness improves to the point where she is able to have intercourse. We did discuss that she can use vegetable oil for a lubricant or could try Astroglide or [place]. If these are notmanaging her symptoms well enough then we could consider vaginal estrogen. 4. Chronic medical issues: These are followed by her primary provider, Dr. Alarcon. 5. Followup: One year for annual gynecologic exam. Radha Sanchez M.D./imani Electronically Signed By: RADHA SANCHEZ MD On: 10/21/2015 10:58 AM Source: [facility] [id number] Document Id: [id number] N WINDER documented in this encounter Miscellaneous Notes Miscellaneous - Radha Sanchez M.D. - 10/27/2015 12:24 PM CST From: RADHA SANCHEZ MD To: RADHA SANCHEZ MD; Sent: 10/27/2015 12:24:56 NYLON WINDER Patient was informed of bone density testing results that she osteopenia. She reported an adult fracture which increased her FRAX based risk of fracture over the next 10 years, but on further discussion, this was likely a trauma related fracture not due to bone loss. Therefore her risk of major osteoporotic fracture over the next 10 years is likely <14%, We discussed that treatment is not necessarily recommended at this time, so I wouldn't recommend starting that unless she felt strongly about it. At this time, she doen't want to start anything, which I think is fine. She also spoke with her fuel attendant in [place] who did not recommend starting levothyroxine for her symptoms. He felt that her anxiety symptoms were not related to her thyroid and that she shouldtry something else for anxiety to see if that would help. We discussed options that would have fewersexual side effects and decided on bupropion. We will start her on 150 mg daily and she will let me know in a month how she is doing. Source: [facility] POWERCHART Document Id: [id number] Electronically signed by Conversion, [facility] [employer] Applier [id number] at 04/11/2017 6:32 PM CDT Telephone Encounter - Conversion, Historical Provider Ser - 10/20/2015 12:38 PM CST *Phone Message/Valeria Document Contains Addenda Addendum by CUAUHTEMOC KELLY LPN on 21 October 2015 11:04:19 NYLON WINDER Patient notified. Addendum by RADHA SANCHEZ MD on 21 October 2015 10:46:13 NYLON WINDER From: RADHA SANCHEZ MD To: Obstetrics/Gynecology Nurse; Sent: 10/21/2015 10:46:13 NYLON WINDER Subject: RE: *Phone Message/Valeria Rx for vaginal estrogen sent. She should see improvement over 3 weeks of use. Make sure she uses 0.5gm, not 5 gm. Also, you can let her know that the total vitamin D level (the top number) should be at least 30 to be in the normal range. Addendum by CUAUHTEMOC KELLY LPN on 21 October 2015 08:41:44 NYLON WINDER From: CUAUHTEMOC KELLY LPN ( Obstetrics/Gynecology Nurse) To: RADHA SANCHEZ MD; Sent: 10/21/2015 08:41:44 NYLON WINDER Subject: FW: *Phone Message/Valeria Patient notified of normal ranges of Vitamin D. She stated that she would like to start Vaginal estrogen. Please send Rx to [facility]. She wants to know how long before she noticies any improvement? Addendum by CUAUHTEMOC KELLY LPN on 20 October 2015 13:33:52 NYLON WINDER Left message for patient to return call. From: AVTAR HANCOCK To: KEDAR Obstetrics/Gynecology Nurse; Sent: 10/20/2015 12:38:43 NYLON WINDER Subject: *Phone Message/Valeria Caller is: ( x ) Patient ( ) Mother ( ) Father ( ) Spouse ( ) Daughter ( ) Son ( ) Pharmacy ( ) Other: Physician: Patient MRN #: Reason for Call: Alfredo would like estrogen cream. She got her lab results, but she isn't sure what the normal ranges are. Please call Alfredo back at [phone]. Message: Advice/Action: Source used: ( ) Verbalizes understanding [...] back cell phone number ( ) Source: [facility] POWERCHART Document Id: [id number] Miscellaneous - Radha Sanchez M.D. - 10/20/2015 9:15 AM CST Ambulatory Patient Summary [facility] [address] [place] [id number] Visit Information Name: ALFREDO OLIVEROS [facility] Number: [id number] Current Date: 10/20/2015 09:15:50 Physicians Attending Provider: RADHA SANCHEZ MD Primary [...] medications. Medication/Strength Dose Route Frequency Indications/Special Instructions/Comments/Notes clonazePAM (clonazePAM 1 mg oral tablet) 1 mg Oral three times a day ranitidine (Zantac 75) 75 mg Oral two times a day as needed cholecalciferol (Vitamin D3 1000 intl units oral tablet) 1,000 IntU Oral once a day bifidobacterium-lactobacillus (Probiotic Formula oral capsule) 1 cap(s) Oral once a day omega-3 polyunsaturated fatty [...] Electronically Signed By: RADHA SANCHEZ MD Signed On:20-OCT-2015 09:15:33 Your Allergies & Intolerances Substance Reaction Symptoms [...] (IFG) Fasting Glucose Active Hyperlipidemia, Borderline per [facility] Active Elevated Liver Function Test (LFT) Active Hypothyroidism Acquired Active Thyroidectomy Partial S/P Active Anemia Iron Deficiency NOS Active Hyponatremia Active Your Upcoming Appointments Date Time Location Provider 10/27/2015 08:30 [facility] Bone [facility]ens [facility] BD Room 1 11/19/2015 08:00 [facility] Lab [facility] Lab 11/19/2015 08:00 [facility] Lab [facility] Lab 01/12/2016 08:45 [facility] Alarcon MD [...] if you dont have one. Go to [email or web address] and click on Create Your Account. Then, follow the directions to complete the online form. Youll be asked for your [facility] number which you can find at the top of this document. Your Goals/Additional instructions: Source: [facility] POWERCHART Document Id: [id number] N WINDER Miscellaneous - Radha Sanchez M.D. - 10/20/2015 9:15 AM CST Ambulatory Discharge Medication List [address] [id number] Visit Information Name: SHARONDAALFREDO PABLO [facility] Number: [id number] Visit Date: 10/20/2015 09:15:49 Attending Provider: RADHA SANCHEZ MD Primary Care [...] medications. Medication/Strength Dose Route Frequency Indications/Special Instructions/Comments/Notes clonazePAM (clonazePAM 1 mg oral tablet) 1 mg Oral three times a day ranitidine (Zantac 75) 75 mg Oral two times a day as needed cholecalciferol (Vitamin D3 1000 intl units oral tablet) 1,000 IntU Oral once a day bifidobacterium-lactobacillus (Probiotic Formula oral capsule) 1 cap(s) Oral once a day omega-3 polyunsaturated fatty [...] Electronically Signed By: RADHA SANCHEZ MD Signed On:20-OCT-2015 09:15:33 Additional Information: Source: [facility] Heart BuddyCHART Document Id: [id number] N WINDER Radha oMraes M.D. - 10/18/2015 1:19 PM CST Normal Results Letter 18 October 2015 ALFREDO OLIVEROS [address] [place] [id number] Dear ALFREDO OLIVEROS, I am pleased to report that your results from the following diagnostic test(s) are normal. Please follow up with us as we discussed during your visit or sooner if you have any concerns. If you have questions or concerns, please do not hesitate to call our office. Result Name Current Result 25-Hydroxy D-Sanders (ng/mL) 43 10/16/2015 25-Hydroxy D2-Sanders (ng/mL) <4.0 10/16/2015 25-Hydroxy D3-Sanders (ng/mL) 43 10/16/2015 Sincerely, RADHA SANCHEZ [address] [place] [id number] Electronic Signature Electronically Signed By: RADHA SANCHEZ MD On: 18 October 2015 This document has images extracted. Source: [facility] POWERCHART Document Id: [id number] Radha Moraes M.D. - 10/17/2015 10:06 AM CST Results Notification Document Contains Addenda Addendum by CUAUHTEMOC KELLY LPN on 17 October 2015 10:25:55 NYLON WINDER Patient notified. She will be in touch with Dr. Alarcon in the near future. From: RADHA SANCHEZ MD To: CUAUHTEMOC KELLY LPN; Sent: 10/17/2015 10:06:59 NYLON WINDER ! Show up: 10/17/2015 10:06:59 NYLON WINDER Subject: Results Notification Actions: Note to Nurse Reminder Comments: Please call Lory and tell her that her thyroid studies are still abnormal. Her TSH is still high andT3 is low and free T4 is at the very low end of normal. Let her know that I would like her to be in touch with Dr. Alarcon about starting thyroid medication. Results: Date Result Name Ind Value Ref Range 10/16/2015 09:42 TSH (H) 6.35 mIU/L (0.27 - 4.20) 10/16/2015 09:42 T4 Free 0.90 ng/dL (0.90 - 1.70) 10/16/2015 09:42 T3 Total (L) 73 ng/dL (80 - 200) Source: [facility] POWERCHART Document Id: [id number] Electronically signed by Conversion, [facility] [employer] Applier [id number] at 04/11/2017 6:32 PM CDT Miscellaneous - Cuauhtemoc Kelly, L.P.N. - 10/16/2015 8:27 AM CST Adult Research/Program Director Intake/History Adult Research/Program Director Intake/History Entered On: 10/16/2015 8:29 NYLON WINDER Performed On: 10/16/2015 8:27 NYLON WINDER by CUAUHTEMOC KELLY LPN Intake Chief Complaint : Annual ACID PURIFIER- c/o anxiety Peripheral Pulse Rate : 62 /min Respiratory Rate : 16 /min Heart Rhythm : Regular Systolic Blood Pressure : 104 mmHg Diastolic Blood Pressure : 62 mmHg NIBP Mean : 76 mmHg BP Location : Right upper extremity Blood Pressure Cuff Size : Regular Height : 170 cm(Converted to: 5 ft 7 inch(es), 67 inch(es)) Actual Weight : 86.9 kg(Converted to: 191 lb 9 oz) Weight Source : Standing scale Dosing Weight Clinic : 86.9 kg Clinic BSA : 2.03 Body Mass Index : 30.07 kg/m2 CUAUHTEMOC KELLY LPN - 10/16/2015 8:27 NYLON WINDER General Info Languages : Serbian Is Patient Female and 13-50 no hysterectomy : No CUAUHTEMOC KELLY ROBIN - 10/16/2015 8:27 NYLON WINDER Subjective Pain Symptoms : No CUAUHTEMOC KELLY PACKAGE DELIVERY DRIVER - 10/16/2015 8:27 NYLON WINDER Dependent Habits Exposure to Tobacco Smoke : Other: never Smoking Status : Never smoker Tobacco 2A : No CUAUHTEMOC KELLY PACKAGE DELIVERY DRIVER - 10/16/2015 8:27 NYLON WINDER Caffeine Use Grid Caffeine Use : Current Type : Coffee Frequency : Daily Amount : 2 cups CUAUHTEMOC KELLY PACKAGE DELIVERY DRIVER - 10/16/2015 8:27 NYLON WINDER Recreational Drug Use Grid Drug Use : None CUAUHTEMOC KELLY ROBIN - 10/16/2015 8:27 NYLON WINDER [facility] Document Id: [id number] NYLON WINDER!35 N WINDER documented in this encounter Plan of Treatment Upcoming Encounters Date Type Specialty Care Team Description 11/01/2022 Office Visit Urology Regina Black, DIANN, C.N.P. [address] [place] [phone] (Wo rk) documented as of this encounter Procedures Procedure Name Priority Date/Time Associated Diagnosis Comme nts 25-HYDROXYVITAMIN Routine 10/16/2015 9:42 AM Resu lts for this D2 AND D3, S NYLON WINDER procedure are i n the results section. T3 Routine 10/16/2015 9:42 AM Results f or this (TRIIODOTHYRONINE), NYLON WINDER procedur e are in TOT, S the results section. THYROID-STIMULATING Routine 10/16/2015 9:42 AM Re sults for this HORMONE-SENSITIVE NYLON WINDER procedure are in (S-TSH) the results section. T4 (THYROXINE), Routine 10/16/2015 9:42 AM Result s for this FREE, S NYLON WINDER procedure are i n the results section. documented in this encounter Results 25-Hydroxyvitamin D2 and D3 (10/16/2015 9:42 AM NYLON WINDER) athologist Signature HX25 HYDROXY D2 <4.0 NG[facility] POWERCHART 25-Hydroxy D3 43 [facility] POWERCHART Vitamin D, S 43 [facility] POWERCHART Comment: REFERENCE VALUE------ 25-HYDROXY D TOTAL (D2+D3) Optimum level s in the healthy population are 20-50, patients with bone disease may benefit from higher levels within this r dagmar. Test Performed by: [place] [address] Squeezer Operator: Maximo Liz II, M.D., Ph.D. Specimen (Source) Anatomical Collection Method Collection Time Re ceived Time Location / / Volume Laterality Blood 10/16/2015 9:42 AM NYLON WINDER Authorizing Provider Result Peter Sanchez M.D. LAB BLOOD ADD-ON Performing Organization Address City/[facility] Phon e Number POWERCHART (ABNORMAL) T3 (Triiodothyronine), Total (10/16/2015 9:42 AM NYLON WINDER) athologist Signature T3 73 (L) 80 - 200 POWERCHART (Triiodothyroni NGDL ne), Total, S Specimen (Source) Anatomical Collection Method Collection Time Re ceived Time Location / / Volume Laterality Blood 10/16/2015 9:42 AM NYLON WINDER Authorizing Provider Result Peter Sanchez M.D. LAB BLOOD ADD-ON Performing Organization Address City/[facility] Code Phon e Number POWERCHART T4 (Thyroxine), Free (10/16/2015 9:42 AM NYLON WINDER) athologist Signature T4 (Thyroxine), 0.90 0.90 - 1.70 POWERCHART Free, S NGDL Specimen (Source) Anatomical Collection Method Collection Time Re ceived Time Location / / Volume Laterality Blood 10/16/2015 9:42 AM NYLON WINDER Authorizing Provider Result Peter Sanchez M.D. LAB BLOOD ADD-ON Performing Organization Address City/[facility]/ZIP Code Phon e Number POWERCHART (ABNORMAL) Thyroid-Stimulating Hormone-Sensitive (s-TSH) (10/16/2015 9:42 AM NYLON WINDER) P athologist Signature TSH 6.35 (H) 0.27 - POWERCHART (Thyrotropin) 4.20 MIUL Specimen (Source) Anatomical Collection Method Collection Time Re ceived Time Location / / Volume Laterality Blood 10/16/2015 9:42 AM NYLON WINDER Radha Sanchez M.D. LAB BLOOD ADD-ON Performing Organization Address City/State/ZIP Code Phon e Number POWERCHART documented in this encounter Visit Diagnoses Not on filedocumented in this encounter
--- OUTSIDE RECORDS SUMMARY | 2022-09-22 13:37 | XMS_ITS | Encounter Summary ---
:1955 Author Organization [facility] Address [address] [place] [id number] Care Team Providers Name Role Phone Unavailable Primary Care Provider Unavailable Encounter Details Date Type Department Care Team Description 06/06/2015 - 06/07/2015 Hospital Encounter HX RST [facility] 2C Social History Tobacco Use Types Packs/Day Years [...] How often do you attend quaker or orthodoxy services? 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 Pulse 78 06/07/2015 12:46 Value from Janet tplus. PM CDT Temperature - - Respiratory Rate 16 06/07/2015 12:46 Value from Daija rtplus. PM CDT Oxygen Saturation - - Inhaled Oxygen - - Concentration Weight 81.6 kg (179 lb 14.3 06/06/2015 1:05 PM oz) CDT Height 165 cm (5' 4.96) 06/06/2015 1:05 PM CDT Body Mass Index 29.97 06/06/2015 1:05 PM CDT documented in this encounter Medications [...] Office Visit Urology Regina Black, DIANN, C.N.P. [address] [phone] (Wo rk) documented as of this encounter Procedures Procedure Name Priority Date/Time Associated Diagnosis Comme nts HXGENERAL PATHOLOGY Routine 06/06/2015 5:36 PM Re sults for this REPORT CDT procedure are i n the results section. documented in this encounter Results Hx general Pathology Report (06/06/2015 5:36 PM CDT) Specimen Anatomical Collection Method Collection Time Receive d Time (Source) Location / / Volume Laterality 06/06/2015 5:36 PM 5 5:36 CDT PM CDT Narrative [facility] - 06/06/2015 5:36 PM CDT ??06/06/2015 Surgical Pathology ?([id number]) ??REVISED REPORT (Addendum/Procedure in cluded) ?? Requested By: Mario Franz M.D. ??[id number] ? SLIDE DISPOSITION: ? DIAGNOSIS: ?? A. ??Thyroid, right and isthmus, lobect sean and isthmusectomy: ?? Multiple (2) benign adenomatous nodules forming well-circumscribed masses measuring 3.8 cm and 1.3 cm in g reatest dimension. ?? This final pathology report is based on the gross/macroscopic examination and the frozen section hist ologic evaluation of the specimen(s). A revised report will be i ssued to document the final interpretation after review of the Jadiel toxylin and Eosin (H&E) permanent sections. ? Participated in interpretation: ??Brando Fuentes M.D. ? 06/06/2015 19:33 Interpreted by: Kevin Jones M.D., PhD. [phone] Report electronically signed by Kevin Jones M.D., PhD. Transcribed by: [email or web address] 06/06/2015 18:59:5 9 ?ADDENDUM: Frozen section interpretation has been confirmed by Hematoxylin and Eosin (H&E) permanent section review. ? Transcribed by: ??[email or web address] ??06/09/2015 10:12 :22 ? Signed by Kevin Jones M.D., PhD. 16:48:24 ? GROSS DESCRIPTION: A. ??Received fresh labeled right thyr oid with isthmus stitch at superior pole is a 19.4 gram partial t hyroidectomy with 5.7 x 4.0 x 2.4 cm right lobe and 2.5 x 0.8 x 0.5 c m isthmus. ??There are multiple (2) nodules including: ?A 1.3 x 1.0 x 0.9 cm parsons-brown nodule in the superior pole. ?A 3.8 x 3.2 x 2.0 cm parsons-brown nodule in the mid-inferior pole. Legal Mediator sections submitted. ??Gr ossed by MCKyler. ?? BLOCK SUMMARY: Part A: ??Right thyroid with isthmus ?1 Superior nodule 1 ?2 Superior nodule 2 ?3 Mid-Inferior nodule ? Procedure Note 02/04/2018 06/06/2015 Surgical Pathology ([id number]) REVISED REPORT (Addendum/Procedure incl uded) Requested By: Mario Franz M.D. [id number] SLIDE DISPOSITION: DIAGNOSIS: A. Thyroid, right and isthmus, lobectom y and isthmusectomy: Multiple (2) benign adenomatous nodules forming well-circumscribed masses measuring 3.8 cm and 1.3 cm in g reatest dimension. This final pathology report is based on the gross/macroscopic examination and the frozen section hist ologic evaluation of the specimen(s). A revised report will be i ssued to document the final interpretation after review of the Jadiel toxylin and Eosin (H&E) permanent sections. Participated in interpretation: Cameron Fuentes M.D. 06/06/2015 19:33 Interpreted by: Kevin Jones M.D., PhD. [id number] Report electronically signed by Kevin Jones M.D., PhD. Transcribed by: [email or web address] 06/06/2015 18:59:5 9 ADDENDUM: Frozen section interpretation has been confirmed by Hematoxylin and Eosin (H&E) permanent section review. Transcribed by: [email or web address] 06/09/2015 10:12:22 Signed by Kevin Jones M.D., PhD. 16:48:24 GROSS DESCRIPTION: A. Received fresh labeled right thyroi d with isthmus stitch at superior pole is a 19.4 gram partial t hyroidectomy with 5.7 x 4.0 x 2.4 cm right lobe and 2.5 x 0.8 x 0.5 c m isthmus. There are multiple (2) nodules including: A 1.3 x 1.0 x 0.9 cm parsons-brown nodule i n the superior pole. A 3.8 x 3.2 x 2.0 cm parsons-brown nodule i n the mid-inferior pole. Legal Mediator sections submitted. Natalie sed by MCB. BLOCK SUMMARY: Part A: Right thyroid with isthmus 1 Superior nodule 1 2 Superior nodule 2 3 Mid-Inferior nodule Mario Franz M.D. LAB PATHOLOGY/CYTOLOGY ORDER [facility] Performing Organization Address City/State/ZIP Code Phon e Number [facility] - [address] [place], [place] [address] [facility] documented in this encounter Visit Diagnoses Not on filedocumented in this encounter
--- OUTSIDE RECORDS SUMMARY | 2022-09-22 13:37 | XMS_ITS | Encounter Summary ---
:1955 Author Organization [facility] Address [address] [place] [address] Care Team Providers Name Role Phone Unavailable Primary Care Provider Unavailable Encounter Details Date Type Department Care Team Description 08/15/2015 Hospital Encounter [facility] Fortino Yadav M.D. [address] [place] [phone] Social History Tobacco Use Types Packs/Day [...] How often do you attend jew or mandaen services? 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 - 08/15/2015 11:05 AM CDT [id number] CHIEF COMPLAINT/ REASON FOR VISIT 1. Followup on chronic medical problems. 2. Discuss test results. HISTORY OF PRESENT ILLNESS Alfredo is a 59-year-old female who presents to the clinic today for a three month followup. I last saw her on 07/18/2015. We discussed her test results from 08/11/2015. Results were remarkable for cholesterol 244, LDL 159, and T4 0.82. She no longer has iron deficiency anemia, iron 86 and TIBC 271 werewithin normal range. We will stop vitamin. She is feeling well. She didnt start Levothyroxine. Her TSH was 7.53 on 07/18/2015. Free T4 is slightly low, free T3 is within normal range. She denies any constipation, dry skin, fatigue/tiredness, orweight gain. She has some anxiety and feels warm occasionally. She doesnt want to start thyroid medication because she doesnt have symptoms of hypothyroidism. She is status post right thyroid lobectomyand isthmusectomy on 06/06/[address] Mario Franz at [facility] for benign follicular adenoma. We reviewed her lipid profile and lipid profile goals. She currently doesnt take medication for hyperlipidemia. We discussed patients ASCVD risk score of having heart attack/heart disease in the next 10 years. Her risk is 2.0%. If optimized, risk decreases to 1.9%. Typically, we suggest patients startmedication if risk is above 7.5%. She has been going to physical therapy in [place] for her right arm pain and notices improvement. She was given influenza immunization today. Otherwise, there are no additional questions, concerns, or complaints. MEDICATIONS Reviewed and updated as per the EHR on 08/15/2015. ALLERGIES Reviewed and updated as per the EHR on 08/15/2015. SYSTEMS REVIEW As per the history of present illness. All other systems are reviewed and are negative. PAST MEDICAL/ SURGICAL HISTORY Reviewed and updated as per the EHR on 08/15/2015. PREVENTIVE SERVICES Reviewed and updated as per the EHR on 08/15/2015. SOCIAL HISTORY Reviewed and updated as per the EHR on 08/15/2015. FAMILY HISTORY Reviewed and updated as per the EHR on 08/15/2015. VITAL SIGNS HEIGHT: 170 cm. WEIGHT: 84 kg. BMI: 29.07 kg/m2. PULSE: 78 /min. RESP: 20 /min. SYSTOLIC: 106 mmHg. DIASTOLIC: 52 mmHg. PHYSICAL EXAMINATION GENERAL: Patient is sitting. No distress. Able to talk without interruption. IMPRESSION/ REPORT/ PLAN 1. Iron deficiency anemia. It is resolved. There was no evidence of bleeding. It should be noted that she didnt tolerate Vitron-C. We will stop vitamin. We will monitor CBC in subsequent visit. 2. Acquired hypothyroidism, status post right thyroid lobectomy and isthmusectomy, 06/06/2015. Her TSH was slightly high with low free T4 and normal free T3. She is euthyroid clinically. She has no symptoms at all. We discussed symptoms and signs of hypothyroidism. She didnt take Levothyroxine as I pre scribed. Probably her remained left thyroid lobe is maintaining thyroid function. She doesnt want totake medication at this time. She was advised to watch for symptoms and signs of hypothyroidism. Shemay need thyroid medication in the future. Need to check thyroid function tests in 3 months. 3. Hyperlipidemia. It is controlled. Fasting lipid profile was done on 08/11/2015. Total [id number], triglycerides 106, HDL 64, LDL 159. She is not on medication. We discussed patients ASCVD risk score of having heart attack/heart disease in the next 10 years. Her risk is 2.0%. If optimized, risk decreases to 1.9%. Patient was advised to continue low cholesterol, low fat diet and regular exercise. 4. Hyponatremia and hyperkalemia, which is resolved. 5. Influenza vaccination. She was given influenza immunization today. 6. Discussed test results. I reviewed test results from 08/11/2015. All questions were answered. The patient will return to the clinic in 3 months for following tests: CBC, Ferritin, Free T4, Iron and TIBC, TSH, and T3. This document serves as a record of services personally performed by Dr. Fortino Alarcon. It was created on their behalf by Denny Newman, a trained medical record administrator. The creation of this record is based on the scribe's personal observations and the provider's statements to them. This document has been checked and approved by the attending provider. Fortino Alarcon M.D./mirian Electronically Signed By: FORTINO ALARCON MD On: 08/16/2015 12:02 PM Modified by and Electronically Signed by: FORTINO ALARCON MD On: 08/16/2015 12:02 PM Source: [facility] [email or web address] Document Id: [id number] documented in this encounter Miscellaneous Notes Miscellaneous - Fortino Alarcon M.D. - 08/15/2015 12:33 PM CDT Ambulatory Patient Summary [address] [place] [id number] Visit Information Name: ALFREDO OLIVEROS [facility] Number: [id number] Current Date: 08/15/2015 12:33:17 Physicians Attending Provider: FORTINO ALARCON MD Primary [...] cap, Oral, once a day One by Preston Light omega-3 polyunsaturated fatty acids (Fish Oil [...] Stop Taking the Following Medications: levothyroxine (Synthroid 25 mcg (0.025 mg) oral tablet) Medication list as of 08-15-15 12:33 Attention: If you have any medications at [...] Electronically Signed By: FORTINO ALARCON MD Signed On:15-AUG-2015 12:32:50 Your Allergies & Intolerances Substance Reaction Symptoms [...] (IFG) Fasting Glucose Active Hyperlipidemia, Borderline per [facility] Active Elevated Liver Function Test (LFT) Active Hypothyroidism Acquired Active Thyroidectomy Partial S/P Active Anemia Iron Deficiency NOS Active Hyperlipidemia NOS Active Hyponatremia Active Hyperkalemia Active Your Upcoming Appointments Date Time Location Provider 09/15/2015 10:00 [facility]BR[facility] Radha Shaw MD 01/12/2016 08:45 [facility] Fortino Alarcon MD Attention: Contact your local Clinic if further appointment detail needed. Anemia, Iron Deficiency [Adult] Anemia is a condition where the size or number of red blood cells in the body is reduced. Iron is needed in the diet to make red cells. The red blood cells carry oxygen to all parts of the body. Anemialimits the delivery of oxygen to where it is needed. This causes a feeling of being tired and run down. When anemia becomes severe, the skin becomes pale and there is shortness of breath with exertion,headaches, dizziness, drowsiness and fatigue. The cause of your anemia is lack of iron in your body. This may occur due to blood loss (for example, heavy menstrual periods or bleeding from the stomach or intestines) or a poor diet (not eating enough iron-containing foods), inability to absorb iron from your diet, or . If the blood count is low enough, an IRON SUPPLEMENT will be prescribed. It usually takes about 2-3 months of treatment with iron supplements to correct an anemia. Severe cases of anemia requires a blood transfusion to rapidly correct symptoms and deliver more oxygen to the cells. Home Care: 1) Increase the iron stores in your body by eating foods high in iron content. This is a natural wayof building your blood cells back up again. Beef, liver, spinach and other dark green leafy vegetables, whole grain products, beans and nuts are all natural sources of iron. 2) If you are having symptoms of anemia listed above: -- Do not overexert yourself. -- Talk to your doctor before flying on an airplane or traveling to high altitudes. Follow Up with your doctor in 2 months for a repeat red blood cell count, or as recommended by our staff, to be sure that the anemia has been corrected. Get Prompt Medical Attention if any of the following occur or worsen: -- Shortness of breath or chest pain -- Dizziness or fainting -- Vomiting blood or passing red or black-colored stool ?? [id number] [facility], [address] [place] [address], [place] [id number]. All rights reserved. This information is not intended as a substitute for professional medical care. Always follow your healthcare professional's instructions. Diet: Low Cholesterol Cholesterol is needed by the body to build new cells and create certain hormones. There are two kinds of cholesterol in the blood: ?? Good cholesterol prevents fat deposits (plaque) from building up in the arteries. In this way it protects against heart disease and stroke. ?? Bad cholesterol stays in the body and sticks to artery hall. It may eventually block blood flow to the heart and brain causing heart attack or stroke. 75% of the bodys cholesterol is made in the liver. Only 25% of the bodys cholesterol comes from the food you eat. While the amount of cholesterol in your diet should be limited, it is the cholesterol that your body makes that creates the greatest disease risk. The biggest influence on cholesterol madeby your body is the mixture of fat types in your diet. There are two kinds of fats you can eat: ?? Good Fats are the unsaturated fats (mono-saturated and poly-unsaturated). They raise the level ofgood cholesterol and lower the level of bad cholesterol. Good fats are found in vegetable oils such as olive, sunflower, corn and soybean oils, and in nuts and seeds. ?? Bad Fats are the saturated fats (including foods high in cholesterol) and trans fats. These increase the risk of disease. They lower the good cholesterol and raise the level of bad cholesterol. Bad fats are found in meat and whole- milk dairy products. Some plants are also high in bad fats (coconut and palm plants). Trans fats are found in hard (stick) margarines and many fast foods and commercially baked goods. Soft margarine sold in tubs has less trans fats and are safer to use. High blood cholesterol usually is a result of a diet high in saturated fat combined with an inactivelifestyle. In some cases, genetics plays a role in causing high cholesterol. The following tips willhelp you create healthy eating habits that will help lower your blood cholesterol level. Steps To Creating A Diet High In Good Fat, Low In Bad Fats (And Low In Cholesterol) Consult with your doctor before starting a low cholesterol diet or weight loss program. Learn to read nutrition labels and select appropriate portion sizes. When cooking, use plant-based unsaturated vegetable oils (sunflower, corn, soybean, canola, peanut, and olive oils). Avoid saturated oils found in animal products such as meat, dairy (whole-milk, cheese and ice cream), poultry skin, and egg yolks. Plants high in saturated oils include coconut and coconut oil, palm oil and palm kernel oil. If you eat meat, choose smaller portions and lean cuts. Replace meat with fish at least two times a week. Fish is an important source of the unsaturated fatcalled omega-3 fatty acids. This fat has potential to lower the risk of heart disease. Replace whole-milk dairy products with low-fat or nonfat products. Try soy products. Soy helps to reduce total cholesterol. Supplement your diet with protective fibers. Eat nuts, seeds, and whole grains rather than white rice and bread. These foods lower both cholesterol and triglyceride levels. (Triglycerides are another fat found in the blood.) Walnuts are one of the best sources of an omega-3 fatty acid. Eat plenty of fresh fruits and vegetables daily. Avoid fast foods and commercial baked goods. Assume they contain saturated fat unless labeled otherwise. ?? [id number] [facility], [address] [place] [address], [place] [address]. All rights reserved. This information is not intended as a substitute for professional medical care. Always follow your healthcare professional's instructions. Consider Using Patient Online Services Patient Online [...] if you dont have one. Go to [email or web address] and click on Create Your Account. Then, follow the directions to complete the online form. Youll be asked for your [facility] number which you can find at the top of this document. Your Goals/Additional instructions: This document has images extracted. Please consider using [employer] for all your patient education needs. Source: [facility] POWERCHART Document Id: [id number] Miscellaneous - Fortino Alarcon M.D. - 08/15/2015 12:33 PM CDT Ambulatory Discharge Medication List [address] [id number] Visit Information Name: MANINDERGUILLERMOALFREDO [facility] Number: [id number] Visit Date: 08/15/2015 12:33:15 Attending Provider: FORTINO ALARCON MD Primary Care [...] cap, Oral, once a day One by Preston Light omega-3 polyunsaturated fatty acids (Fish Oil [...] Stop Taking the Following Medications: levothyroxine (Synthroid 25 mcg (0.025 mg) oral tablet) Medication list as of 08-15-15 12:33 Attention: If you have any medications at [...] Electronically Signed By: FORTINO ALARCON MD Signed On:15-AUG-2015 12:32:50 Additional Information: Source: [facility] POWERCHART Document Id: [id number] Miscellaneous - Margarita Camacho L.P.N. 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 Three month follow-up 05/09/2015 Peripheral Pulse Rate : 78 /min Respiratory Rate : 20 /min Systolic Blood Pressure : 106 mmHg Diastolic Blood Pressure : 52 mmHg NIBP Mean : 70 mmHg BP Location : Left upper extremity Blood Pressure Cuff Size : Large Height : 170 cm(Converted to: 5 ft 7 inch(es), 67 inch(es)) Actual Weight : 84 kg(Converted to: 185 lb 3 oz) Weight Source : Standing scale Dosing Weight Clinic : 84 kg Clinic BSA : 1.99 Body Mass Index : 29.07 kg/m2 MARGARITA CAMACHO LPN - 08/15/2015 12:00 CDT General Info Information Given By : Patient Preferred Communication Mode : Verbal, Written Languages : Palestinian Is Patient Female and 13-50 no hysterectomy : No MARGARITA CAMACHO LPN - 08/15/2015 12:00 CDT Subjective Pain Symptoms : No MARGARITA CAMACHO LPN - 08/15/2015 12:00 CDT Dependent Habits Tobacco Use/Currently Using : No Tobacco Use/Last 12 months : No Exposure to Tobacco Smoke : Other: never Smoking Status : Never smoker MARGARITA CAMACHO LPN - 08/15/2015 12:00 CDT Caffeine Use Grid Caffeine Use : Current Type : Coffee Frequency : Daily Amount : 2 cups MARGARITA CAMACHO ROBIN - 08/15/2015 12:00 CDT Recreational Drug Use Grid Drug Use : None MARGARITA CAMACHO ROBIN - 08/15/2015 12:00 CDT Source: [facility] SGN ([employer] Gaming Network) Document Id: [id number] CDT!37 documented in this encounter Plan of Treatment Upcoming Encounters Date Type Specialty Care Team Description 11/01/2022 Office Visit Urology Regina Black APRN, C.N.P. [address] [phone] (Wo rk) documented as of this encounter Visit Diagnoses Not on filedocumented in this encounter
--- OUTSIDE RECORDS SUMMARY | 2022-09-22 13:37 | XMS_ITS | Encounter Summary ---
:1955 Author Organization [facility] Address [address] [place] [address] Care Team Providers Name Role Phone Unavailable Primary Care Provider Unavailable Encounter Details Date Type Department Care Team Description 11/17/2015 Hospital Encounter [facility] Fortino Yadav M.D. [address] [place] [address] [phone] Social History Tobacco Use Types Packs/Day [...] er 09/12/2022 How often do you attend muslim or synagogue services? Never 05/13/2019 Do you belong to any clubs or organizations such as muslim N o 09/12/2022 groups, unions, fraternal or [...] at Date Recorded Female 11/29/2017 6:36 PM PUMP HOUSE TECHNICIAN documented as of this encounter Last Filed Vital Signs Vital Sign Reading Time Taken Comments Blood Pressure 121/63 11/17/2015 2:35 PM PUMP HOUSE TECHNICIAN Pulse 72 11/17/2015 2:35 PM PUMP HOUSE TECHNICIAN Temperature - - Respiratory Rate 16 11/17/2015 2:35 PM PUMP HOUSE TECHNICIAN Oxygen Saturation - - Inhaled Oxygen Concentration - - Weight 86.5 kg (190 lb 11.2 oz) 11/17/2015 2:35 PM PUMP HOUSE TECHNICIAN Height 170 cm (5' 6.93) 11/17/2015 2:35 PM PUMP HOUSE TECHNICIAN Body Mass Index 29.93 11/17/2015 2:35 PM PUMP HOUSE TECHNICIAN documented in this encounter Medications at Time of Discharge Medication Sig Dispensed Refills Start Date End Date miscellaneous medical autoSV, heated 0 09/20/2014 supply misc humidifier, mask, headgear, filters and tubing. Length of Need: 99 raNITIdine (for_ZANTAC) 75 Take 75 mg by mouth 0 08/12/2014 05/12/2018 mg tablet once as needed. documented as of this encounter Progress Notes Fortino Alarcon M.D. - 11/17/2015 2:22 PM CST [id number] CHIEF COMPLAINT/REASON FOR VISIT Anxiety. HISTORY OF PRESENT ILLNESS Alfredo is a 60-year-old female who presents to the clinic today for anxiety. She was on antidepressants for 20 years for anxiety. She felt somewhat better after using CPAP machine. Before starting CPAP machine, she was on Doxepin, Lexapro, and Wellbutrin but tapered off because she was feeling better. She did have some dry eyes and mouth while taking Doxepin. She started to feel anxious before her thyroid surgery on 06/06/2015. Per the patient, her telltale signs of anxiety include feeling uneasy, troubles staying asleep, and the inability to take a deep breath. She stopped Wellbutrin on 11/04/2015 due to ringing in her ears, worsening anxiety, and decreased sleep. She only took Wellbutrin for 9 days. She has an appointment with psychiatrist Dr. Odette Gaytan at [facility] in [place], [place] at the end of December 2015. She would like to start medication that would resolve her anxiety and help her sleeping cycle without side effects of decreased libido and dry eye. We also discussed Remeron, which can also cause decreased libido. She had thyroid function tests on 10/16/2015. Her TSH is still high, T3 is low, and free T4 is very low normal range. 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 It should be noted that she is status post right thyroid lobectomy and isthmusectomy on 06/06/[address] 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 She has gained 11 pounds in the last six months. She has had history of constipation. She saw Dr. Radha Shaw, [employer] on 10/16/2015 for her annual gynecological exam. Pap smear wasnt done at that time. Per previous records, her last Pap smear was done on 06/22/2013 in [place], [place]. Patient had DXA bone density on 10/27/2015. It showed osteopenia. She is starting to take calcium supplementation and increasing her exercise. She needs to make sure daily calcium and vitamin D intake are adequate, 1,200 mg and 800 units, respectively. It is better to have calcium through her diet. I reviewed and updated her medication list. We discussed potential side effects. Otherwise, there are no additional questions, concerns, or complaints. MEDICATIONS Reviewed and updated as per the EHR on 11/17/2015. ALLERGIES Reviewed and updated as per the EHR on 11/17/2015. SYSTEMS REVIEW Please see HPI for pertinent positives, otherwise rest of ROS negative. PAST MEDICAL/SURGICAL HISTORY Reviewed and updated as per the EHR on 11/17/2015. PREVENTIVE SERVICES Reviewed and updated as per the EHR on 11/17/2015. SOCIAL HISTORY Reviewed and updated as per the EHR on 11/17/2015. FAMILY HISTORY Reviewed and updated as per the EHR on 11/17/2015. VITAL SIGNS HEIGHT: 170 cm. WEIGHT: 86.5 kg. BMI: 29.93 kg/m2. PULSE: 72 /min. RESP: 16 /min. SYSTOLIC: 121 mmHg. DIASTOLIC: 63 mmHg. PHYSICAL EXAMINATION GENERAL: Patient is sitting. No distress. Able to talk without interruption. EYES: PERRLA. EOMI. No pallor, icterus, or conjunctivitis. ENT: No nasal congestion, discharge, or bleeding. There is no ear infection, discharge, or redness. No mastoid tenderness. Tongue is moist and midline. No oral lesions. EXTREMITIES: No clubbing, cyanosis, edema, infection, or calf tenderness. MENTAL: Alert and oriented x 3. Normal mood and affect. IMPRESSION/REPORT/PLAN 1. Anxiety. She didnt tolerate Wellbutrin because of tinnitus. She was diagnosed with depression, anxiety in the past. She took Lexapro which caused her decreased libido. Doxepin caused her dry mouth, dry eye. We reviewed Dr. Hampton recommendation regarding Remeron which can cause decreased libido. It was decided to start Buspar 5 mg by mouth three times a day. We discussed potential side effects frommedication, including but not limited to, tinnitus. She should contact me if her symptoms worsen or develops side effects to new medication. She was advised to keep her appointment with Dr. Odette Gaytan,Psychiatrist at the end of December 2015. 2. Subclinical hypothyroidism, status post right thyroid lobectomy and isthmusectomy on 06/06/2015. She contacted her stitching department supervisor at [facility]. She was told it would be better in six months. She has weight gain, 11 pounds since April, and constipation. She doesnt want to start thyroid me dication at this time. We discussed symptoms and signs suggestive of hypothyroidism. I explained to her that taking thyroid medication will not solve her anxiety but sometimes hypothyroidism can cause mood disorder. Need to check thyroid function tests in 6 months. 3. Iron deficiency anemia. There was no evidence of bleeding. Need to watch for bleeding. We will check CBC and iron level today. 4. Obstructive sleep apnea. It is controlled. She will continue CPAP use. She will follow with Dr. Long. 5. Tinnitus, bilateral. There was no evidence of infection. It should be getting better if it was side effect of Wellbutrin. If her problems persist, she needs to see ENT. 6. Osteopenia. She needs to make sure daily calcium and vitamin D intake are adequate, 1,200 mg and 800 units, respectively. It is better to have dietary calcium rather than pill. Need to check DXA bone density after 2017. 7. Hepatitis C screening. Blood test for hepatitis C was done today. Todays studies: BMP, CBC, Ferritin, HCV, and Iron and TIBC. Patient will be notified with results and recommendations. The patient will return to the clinic as previously scheduled for annual physical exam. Administrative Billing 40 minutes spent with greater than 50% counseling, coordination of care, answering the questions anddiscussing management of above medical problems. This document serves as a record of services personally performed by Dr. Fortino Alarcon. It was created on their behalf by Denny Newman, a trained medical concierge. The creation of this record is based on the scribe's personal observations and the provider's statements to them. This document has been checked and approved by the attending provider. Fortino Alarcon M.D./mirian Electronically Signed By: FORTINO ALARCON MD On: 11/24/2015 02:02 PM Modified by and Electronically Signed by: FORTINO ALARCON MD On: 11/24/2015 02:02 PM Source: [facility] [id number] Document Id: [id number] HOUSE TECHNICIAN documented in this encounter Miscellaneous Notes Telephone Encounter - Conversion, Historical Provider Ser - 11/24/2015 2:52 PM CST *Phone Message/Dr. Alarcon Document Contains Addenda Addendum by MARGARITA CAMACHO LPN on 24 November 2015 15:57:03 PUMP HOUSE TECHNICIAN Pharmacy notified. Addendum by FORTINO ALARCON MD on 24 November 2015 15:01:08 PUMP HOUSE TECHNICIAN From: FORTINO ALARCON MD To: KEDAR Alarcon Nurse; Sent: 11/24/2015 15:01:08 PUMP HOUSE TECHNICIAN Subject: RE: *Phone Message/Dr. Alarcon Actions: Notify patient- refer to General Message, Notify patient of Future Order Please see below for new Rx for brand Synthroid. Addendum by FORTINO ALARCON MD on 24 November 2015 15:00:34 PUMP HOUSE TECHNICIAN Submitted: Order:levothyroxine (Synthroid 25 mcg (0.025 mg) oral tablet) 1 tab(s) PO Daily AM On empty stomach.CANDIDO Qty: 100 tab(s) Refills: 3 CANDIDO Route To Pharmacy - [facility] Signed by FORTINO ALARCON MD Addendum by MARGARITA CAMACHO LPN on 24 November 2015 14:56:09 PUMP HOUSE TECHNICIAN From: MARGARITA CAMACHO LPN ([facility] Nurse) To: FORTINO ALARCON MD; Sent: 11/24/2015 14:56:09 PUMP HOUSE TECHNICIAN Subject: FW: *Phone Message/Dr. Alarcon Addendum by MARGARITA CAMACHO LPN on 24 November 2015 14:56:02 PUMP HOUSE TECHNICIAN Called and spoke with Dinesh, Levoxyl isn't covered but they will cover Synthroid. Is okay for them todo synthroid? From: DAMARIS CHOI ([facility] Diesel Engine Pipe Fitter) To: Dorian Nurse; Sent: 11/24/2015 14:52:53 PUMP HOUSE TECHNICIAN Subject: *Phone Message/Dr. Alarcon Caller is: ( ) Patient ( ) Mother ( ) Father ( ) Spouse ( ) Daughter ( ) Son ( x ) Pharmacy ( ) Other: Physician: Dr. Alarcon Patient MRN #: Reason for Call: Message: Dinesh from [facility] is looking for clarification on an RX from Dr. Alarcon. Please call Dinesh back at [facility] at [phone]. Advice/Action: Source used: ( ) Verbalizes understanding [...] back cell phone number ( ) Source: [facility] POWERCHART Document Id: [id number] Telephone Encounter - Margarita Camacho L.P.N. - 11/24/2015 8:44 AM CST FW: Lab from 11/17/2015 Document Contains Addenda Addendum by FORTINO ALARCON MD on 24 November 2015 11:55:11 PUMP HOUSE TECHNICIAN From: FORTINO ALARCON MD To: ALFREDO OLIVEROS Cc: Dorian Nurse; Sent: 11/24/2015 11:55:11 PUMP HOUSE TECHNICIAN Subject: RE: Lab from 11/17/2015 Actions: Notify patient- refer to General Message, Notify patient of Future Order David Dunaway I sent new prescription for brand Levoxyl. Please see below. We need to recheck thyroid function tests in 2 months. All orders in EHR. Please call our office to schedule for lab appointment. Dr. Alarcon Addendum by FORTINO ALARCON MD on 24 November 2015 11:52:40 PUMP HOUSE TECHNICIAN Submitted: Order:levothyroxine (Levoxyl 25 mcg (0.025 mg) oral tablet) 1 tab(s) PO Daily AM On empty stomach. CANDIDO. Qty: 100 tab(s) Refills: 3 CANDIDO Route To Pharmacy - [facility] Signed by FORTINO ALARCON MD From: MARGARITA CAMACHO LPN ( Internal Medicine Nurse) To: FORTINO ALARCON MD; Sent: 11/24/2015 08:44:23 PUMP HOUSE TECHNICIAN Subject: FW: Lab from 11/17/2015 From: ALFREDO OLIVEROS To: [facility] ( Internal Medicine Nurse) Sent: 11/24/2015 08:06 a.m. PUMP HOUSE TECHNICIAN Subject: RE: Lab from 11/17/2015 Thank you for your message. It has been successfully sent to the appropriate care team. Hi, Please order the branded thyroid medication. This is one situation where I think using the branded drug is better than a generic. Thank you, Alfredo Addendum by FORTINO ALARCON MD on 21 November 2015 09:21:33 PUMP HOUSE TECHNICIAN From: FORTINO ALARCON MD To: ALFREDO OLIVEROS Cc: Dorian Nurse; Sent: 11/21/2015 09:21:33 PUMP HOUSE TECHNICIAN Subject: RE: Lab from 11/17/2015 Actions: Notify patient- refer to General Message, Notify patient of Future Order Alfredo, We can start Thyroid supplementation in 1 week. We need to start with low dose first. There are several Thyroid medications available made by several drug companies. Although they are same milligrams, their effectiveness is different. If you take generic drug. please pay attention to drug company and let me know if Pharmacy change the drug company when you get the refill. Otherwise, you can take Brand Synthroid or Brand Levoxyl, but you may have to pay higher co-pay. We need to recheck thyroid function tests 2 months after starting Thyroid medication. Thank you. Dr. Alarcon From: AKUA PONCE LPN ( Internal Medicine Nurse) To: FORTINO ALARCON MD; Sent: 11/20/2015 16:16:37 PUMP HOUSE TECHNICIAN Subject: FW: Lab from 11/17/2015 From: ALFREDO OLIVEROS To: [facility] ( Internal Medicine Nurse) Sent: 11/20/2015 02:24 p.m. PUMP HOUSE TECHNICIAN Subject: RE: Lab from 11/17/2015 Thank you for your message. It has been successfully sent to the appropriate care team. Hi Dr. Alarcon, Thank you. Lisa started the Vitron C. I am tolerating it and the Buspar so far. I would like to start taking the thyroid medication as soon as you think I should start it. I didnt realize I had gained so much weight, and I have been struggling a bit with constipation, andmy hands have been cold. I also just read that hypothyroidism can cause tinnitus, which has not abated. Thank you for your patience with me about the thyroid medication, and please let me know when you think I should start it. Alfredo From: FORTINO ALARCON MD To: ALFREDO OLIVEROS Cc: KEDAR Alarcon Nurse; Sent: 11/18/2015 09:56:14 PUMP HOUSE TECHNICIAN Subject: Lab from 11/17/2015 Actions: Notify patient of results, Notify patient of Future Order David Dunaway, Your tests for electrolytes, glucose, kidney function and blood counts are normal. HCV Ab Scrn(Hepatitis C antibody ) is negative, which is good. Your iron study is good except for slightly low ferritin. Please take Vitron C one tablet daily for iron supplement to keep ferritin level above 50, at least, and let me know if you have intolerance to Vitron C again. Will recheck iron study in December 2015. Dr. Alarcon Results: Date Result Name Value Ref Range 11/17/2015 15:29 Sodium Lvl 143 mmol/L (135 - 145) 11/17/2015 15:29 Potassium Lvl 5.0 mmol/L (3.6 - 5.2) 11/17/2015 15:29 Chloride 102 mmol/L (98 - 107) 11/17/2015 15:29 CO2 28 mmol/L (22 - 29) 11/17/2015 15:29 AGAP 13 mmol/L (7 - 15) 11/17/2015 15:29 Glucose Lvl 75 mg/dL (70 - 139) 11/17/2015 15:29 Creatinine 0.8 mg/dL (0.6 - 1.1) 11/17/2015 15:29 EGFR (MDRD) >60 mL/min/1.73m2 (>=60 - ) 11/17/2015 15:29 EGFR (MDRD) >60 mL/min/1.73m2 (>=60 - ) 11/17/2015 15:29 BUN 18 mg/dL (6 - 21) 11/17/2015 15:29 Calcium Lvl 9.8 mg/dL (8.0 - 10.3) 11/17/2015 15:29 Iron 53 mcg/dL (35 - 145) 11/17/2015 15:29 UIBC 234 mcg/dL 11/17/2015 15:29 TIBC 287 UG/DL (250 - 400) 11/17/2015 15:29 Iron Sat 18.5 % (13.9 - 50.1) 11/17/2015 15:29 Ferritin Lvl 44.9 ng/mL (11.0 - 307.0) 11/17/2015 15:29 Hgb 13.8 g/dL (12.0 - 15.5) 11/17/2015 15:29 Hct 43.0 % (34.9 - 44.5) 11/17/2015 15:29 WBC 7.9 x10(9)/L (3.4 - 10.5) 11/17/2015 15:29 RBC 4.56 x10(12)/L (3.90 - 5.03) 11/17/2015 15:29 MCV 94.3 fL (82.0 - 98.0) 11/17/2015 15:29 RDW 12.2 % (11.9 - 15.5) 11/17/2015 15:29 Platelet 256 x10(9)/L (150 - 450) 11/17/2015 15:29 Neutro Absolute 4.22 10(9)/L (1.70 - 7.00) 11/17/2015 15:29 Lymph Absolute 2.81 x10(9)/L (0.90 - 2.90) 11/17/2015 15:29 [place] Absolute 0.60 x10(9)/L (0.30 - 0.90) 11/17/2015 15:29 Eos Absolute 0.21 x10(9)/L (0.05 - 0.50) 11/17/2015 15:29 Baso Absolute 0.03 x10(9)/L (0.00 - 0.30) 11/17/2015 15:29 HCV Ab [facility] Negative (Negative - ) Source: [facility] POWERCHART Document Id: [id number] Electronically signed by Conversion, [facility] Sandblaster Glass [id number] at 04/09/2017 11:07 AM CDT Telephone Encounter - Akua Ponce L.P.N. - 11/20/2015 4:16 PM PUMP HOUSE TECHNICIAN FW: Lab from 11/17/2015 Document Contains Addenda Addendum by FORTINO ALARCON MD on 21 November 2015 09:21:33 PUMP HOUSE TECHNICIAN From: FORTINO ALARCON MD To: ALFREDO OLIVEROS Cc: Dorian Nurse; Sent: 11/21/2015 09:21:33 PUMP HOUSE TECHNICIAN Subject: RE: Lab from 11/17/2015 Actions: Notify patient- refer to General Message, Notify patient of Future Order Alfredo, We can start Thyroid supplementation in 1 week. We need to start with low dose first. There are several Thyroid medications available made by several drug companies. Although they are same milligrams, their effectiveness is different. If you take generic drug. please pay attention to drug company and let me know if Pharmacy change the drug company when you get the refill. Otherwise, you can take Brand Synthroid or Brand Levoxyl, but you may have to pay higher co-pay. We need to recheck thyroid function tests 2 months after starting Thyroid medication. Thank you. Dr. Alarcon From: AKUA PONCE LPN ( Internal Medicine Nurse) To: FORTINO ALARCON MD; Sent: 11/20/2015 16:16:37 PUMP HOUSE TECHNICIAN Subject: FW: Lab from 11/17/2015 From: ALFREDO OLIVEROS To: [facility] ( Internal Medicine Nurse) Sent: 11/20/2015 02:24 p.m. PUMP HOUSE TECHNICIAN Subject: RE: Lab from 11/17/2015 Thank you for your message. It has been successfully sent to the appropriate care team. Hi Dr. Alarcon, Thank you. Lisa started the Vitron C. I am tolerating it and the Buspar so far. I would like to start taking the thyroid medication as soon as you think I should start it. I didnt realize I had gained so much weight, and I have been struggling a bit with constipation, andmy hands have been cold. I also just read that hypothyroidism can cause tinnitus, which has not abated. Thank you for your patience with me about the thyroid medication, and please let me know when you think I should start it. Alfredo From: FORTINO ALARCON MD To: ALFREDO OLIVEROS Cc: KEDAR Alarcon Nurse; Sent: 11/18/2015 09:56:14 PUMP HOUSE TECHNICIAN Subject: Lab from 11/17/2015 Actions: Notify patient of results, Notify patient of Future Order David Dunaway, Your tests for electrolytes, glucose, kidney function and blood counts are normal. HCV Ab Scrn(Hepatitis C antibody ) is negative, which is good. Your iron study is good except for slightly low ferritin. Please take Vitron C one tablet daily for iron supplement to keep ferritin level above 50, at least, and let me know if you have intolerance to Vitron C again. Will recheck iron study in December 2015. Dr. Alarcon Results: Date Result Name Value Ref Range 11/17/2015 15:29 Sodium Lvl 143 mmol/L (135 - 145) 11/17/2015 15:29 Potassium Lvl 5.0 mmol/L (3.6 - 5.2) 11/17/2015 15:29 Chloride 102 mmol/L (98 - 107) 11/17/2015 15:29 CO2 28 mmol/L (22 - 29) 11/17/2015 15:29 AGAP 13 mmol/L (7 - 15) 11/17/2015 15:29 Glucose Lvl 75 mg/dL (70 - 139) 11/17/2015 15:29 Creatinine 0.8 mg/dL (0.6 - 1.1) 11/17/2015 15:29 EGFR (MDRD) >60 mL/min/1.73m2 (>=60 - ) 11/17/2015 15:29 EGFR (MDRD) >60 mL/min/1.73m2 (>=60 - ) 11/17/2015 15:29 BUN 18 mg/dL (6 - 21) 11/17/2015 15:29 Calcium Lvl 9.8 mg/dL (8.0 - 10.3) 11/17/2015 15:29 Iron 53 mcg/dL (35 - 145) 11/17/2015 15:29 UIBC 234 mcg/dL 11/17/2015 15:29 TIBC 287 UG/DL (250 - 400) 11/17/2015 15:29 Iron Sat 18.5 % (13.9 - 50.1) 11/17/2015 15:29 Ferritin Lvl 44.9 ng/mL (11.0 - 307.0) 11/17/2015 15:29 Hgb 13.8 g/dL (12.0 - 15.5) 11/17/2015 15:29 Hct 43.0 % (34.9 - 44.5) 11/17/2015 15:29 WBC 7.9 x10(9)/L (3.4 - 10.5) 11/17/2015 15:29 RBC 4.56 x10(12)/L (3.90 - 5.03) 11/17/2015 15:29 MCV 94.3 fL (82.0 - 98.0) 11/17/2015 15:29 RDW 12.2 % (11.9 - 15.5) 11/17/2015 15:29 Platelet 256 x10(9)/L (150 - 450) 11/17/2015 15:29 Neutro Absolute 4.22 10(9)/L (1.70 - 7.00) 11/17/2015 15:29 Lymph Absolute 2.81 x10(9)/L (0.90 - 2.90) 11/17/2015 15:29 [place] Absolute 0.60 x10(9)/L (0.30 - 0.90) 11/17/2015 15:29 Eos Absolute 0.21 x10(9)/L (0.05 - 0.50) 11/17/2015 15:29 Baso Absolute 0.03 x10(9)/L (0.00 - 0.30) 11/17/2015 15:29 HCV Ab [facility] Negative (Negative - ) Source: [facility] Document Id: [id number] Electronically signed by Conversion, [facility] Sand[employer] Glass [id number] at 04/09/2017 11:07 AM CDT Miscellaneous - Fortino Alarcon M.D. - 11/18/2015 10:04 AM CST Custom Result Letter 18 November 2015 ALFREDO OLIVEROS [address] [place] [phone] Dear ALFREDO OLIVEROS, Your tests for electrolytes, glucose, kidney function and blood counts are normal. HCV Ab Scrn(Hepatitis C antibody ) is negative, which is good. Your iron study is good except for slightly low ferritin. Please take Vitron C one tablet daily for iron supplement to keep ferritin level above 50, at least, and let me know if you have intolerance to Vitron C again. Will recheck iron study in December 2015. Please follow up with us as we discussed during your visit or sooner if you have any concerns. If you have questions or concerns, please do not hesitate to call our office. Result Name Current Result Normal Range Sodium Lvl (mmol/L) 143 11/17/2015 135 - 145 Potassium Lvl (mmol/L) 5.0 11/17/2015 3.6 - 5.2 Chloride (mmol/L) 102 11/17/2015 98 - 107 CO2 (mmol/L) 28 11/17/2015 22 - 29 AGAP (mmol/L) 13 11/17/2015 7 - 15 Glucose Lvl (mg/dL) 75 11/17/2015 70 - 139 Creatinine (mg/dL) 0.8 11/17/2015 0.6 - 1.1 EGFR (MDRD) (mL/min/1.73m2) >60 11/17/2015 >=60 - BUN (mg/dL) 18 11/17/2015 6 - 21 Calcium Lvl (mg/dL) 9.8 11/17/2015 8.0 - 10.3 Iron (mcg/dL) 53 11/17/2015 35 - 145 UIBC (mcg/dL) 234 11/17/2015 TIBC (UG/DL) 287 11/17/2015 250 - 400 Iron Sat (%) 18.5 11/17/2015 13.9 - 50.1 Ferritin Lvl (ng/mL) 44.9 11/17/2015 11.0 - 307.0 Hgb (g/dL) 13.8 11/17/2015 12.0 - 15.5 Hct (%) 43.0 11/17/2015 34.9 - 44.5 WBC (x10(9)/L) 7.9 11/17/2015 3.4 - 10.5 Platelet (x10(9)/L) 256 11/17/2015 150 - 450 [facility] Negative 11/17/2015 Negative - Sincerely, FORTINO ALARCON [address] [place] [address] Electronic Signature Electronically Signed By: FORTINO ALARCON MD On: 18 November 2015 This document has images extracted. Source: [facility] P[facility] Document Id: [id number] Electronically signed by Conversion, [facility] [employer] [id number] at 04/09/2017 11:07 AM CDT Miscellaneous - Fortino Alarcon M.D. - 11/18/2015 9:56 AM CST Lab from 11/17/2015 From: FORTINO ALARCON MD To: ALFREDO OLIVEROS Cc: FB Dorian Nurse; Sent: 11/18/2015 09:56:14 PUMP HOUSE TECHNICIAN Subject: Lab from 11/17/2015 Actions: Notify patient of results, Notify patient of Future Order David Dunaway, Your tests for electrolytes, glucose, kidney function and blood counts are normal. HCV Ab Scrn(Hepatitis C antibody ) is negative, which is good. Your iron study is good except for slightly low ferritin. Please take Vitron C one tablet daily for iron supplement to keep ferritin level above 50, at least, and let me know if you have intolerance to Vitron C again. Will recheck iron study in December 2015. Dr. Alarcon Results: Date Result Name Value Ref Range 11/17/2015 15:29 Sodium Lvl 143 mmol/L (135 - 145) 11/17/2015 15:29 Potassium Lvl 5.0 mmol/L (3.6 - 5.2) 11/17/2015 15:29 Chloride 102 mmol/L (98 - 107) 11/17/2015 15:29 CO2 28 mmol/L (22 - 29) 11/17/2015 15:29 AGAP 13 mmol/L (7 - 15) 11/17/2015 15:29 Glucose Lvl 75 mg/dL (70 - 139) 11/17/2015 15:29 Creatinine 0.8 mg/dL (0.6 - 1.1) 11/17/2015 15:29 EGFR (MDRD) >60 mL/min/1.73m2 (>=60 - ) 11/17/2015 15:29 EGFR (MDRD) >60 mL/min/1.73m2 (>=60 - ) 11/17/2015 15:29 BUN 18 mg/dL (6 - 21) 11/17/2015 15:29 Calcium Lvl 9.8 mg/dL (8.0 - 10.3) 11/17/2015 15:29 Iron 53 mcg/dL (35 - 145) 11/17/2015 15:29 UIBC 234 mcg/dL 11/17/2015 15:29 TIBC 287 UG/DL (250 - 400) 11/17/2015 15:29 Iron Sat 18.5 % (13.9 - 50.1) 11/17/2015 15:29 Ferritin Lvl 44.9 ng/mL (11.0 - 307.0) 11/17/2015 15:29 Hgb 13.8 g/dL (12.0 - 15.5) 11/17/2015 15:29 Hct 43.0 % (34.9 - 44.5) 11/17/2015 15:29 WBC 7.9 x10(9)/L (3.4 - 10.5) 11/17/2015 15:29 RBC 4.56 x10(12)/L (3.90 - 5.03) 11/17/2015 15:29 MCV 94.3 fL (82.0 - 98.0) 11/17/2015 15:29 RDW 12.2 % (11.9 - 15.5) 11/17/2015 15:29 Platelet 256 x10(9)/L (150 - 450) 11/17/2015 15:29 Neutro Absolute 4.22 10(9)/L (1.70 - 7.00) 11/17/2015 15:29 Lymph Absolute 2.81 x10(9)/L (0.90 - 2.90) 11/17/2015 15:29 [place] Absolute 0.60 x10(9)/L (0.30 - 0.90) 11/17/2015 15:29 Eos Absolute 0.21 x10(9)/L (0.05 - 0.50) 11/17/2015 15:29 Baso Absolute 0.03 x10(9)/L (0.00 - 0.30) 11/17/2015 15:29 HCV Ab [facility] Negative (Negative - ) Source: [facility] POWERCHART Document Id: [id number] Electronically signed by Conversion, [facility] Sandblaster Glass [id number] at 04/09/2017 11:07 AM CDT Miscellaneous - Fortino Alarcon M.D. - 11/17/2015 3:21 PM CST Ambulatory Patient Summary [address] [id number] Visit Information Name: ALFREDO OLIVEROS [facility] Number: [id number] Current Date: 11/17/2015 15:21:16 Physicians Attending Provider: FORTINO ALARCON MD Primary [...] C) 500 mg, Oral, once a day This is a CHANGE bifidobacterium-lactobacillus (Probiotic Formula oral capsule) 1 cap, Oral, once a day busPIRone (BuSpar 5 mg oral tablet) 1 Tablet(s), Oral, three times a day New Routed to [address] [address] calcium-vitamin D (Calcium 500+D) 1 Tablet(s), two times a day cholecalciferol (Vitamin D3 1000 intl units oral tablet) 1 Tablet(s), Oral, once a day clonazePAM (clonazePAM 1 mg oral tablet) 1 Tablet(s), Oral, three times a day estradiol topical (Estrace Vaginal 0.1 mg/g vaginal cream) See Instructions 0.5 gm Vaginal Bedtime x3 weeks, then go to twice weekly at bedtime magnesium oxide (magnesium oxide 250 mg oral tablet) 2 Tablet(s), Oral, once a day multivitamin (Vitamin B Complex 100) 1 Tablet(s), Oral, once a day This is a CHANGE omega-3 polyunsaturated fatty acids (Fish Oil oral capsule) 1 cap, Oral, once a day ranitidine (Zantac 75) 75 mg, Oral, two times a day as needed Stop Taking the Following Medications: buPROPion (buPROPion XL 150 mg/24 hours oral extended release tablet) Medication list as of 11-17-15 15:21 Attention: If you have any medications at [...] Electronically Signed By: FORTINO ALARCON MD Signed On:17-NOV-2015 15:21:01 Your Allergies & Intolerances Substance Reaction Symptoms [...] (IFG) Fasting Glucose Active Hyperlipidemia, Borderline per [facility] Active Elevated Liver Function Test (LFT) Active Hypothyroidism Acquired Active Thyroidectomy Partial S/P Active Anemia Iron Deficiency NOS Active Hyponatremia Active Osteopenia Active Your Upcoming Appointments Date Time Location Provider 01/12/2016 08:45 [facility] Fortino Alarcon MD Attention: Contact your local Clinic if further appointment detail needed. Hypothyroidism You have been diagnosed with hypothyroidism. This means your thyroid gland is not producing enough thyroid hormone. This hormone is important to body growth and metabolism. If you don't have enough, many body processes slow down, causing mental and physical sluggishness. A variety of other symptoms may occur and vary from mild to severe. The most severe form of this illness is called myxedema. Signs Of Hyperthyroidism (too much thyroid hormone, which can be a side effect of treatment for low thyroid): ?? Restlessness, nervousness ?? Increased appetite with weight loss ?? Excess sweating ?? Palpitations or irregular heartbeat ?? Feeling overheated Signs Of Hypothyroidism (too little thyroid hormone): ?? Fatigue or sluggishness ?? Difficulty concentrating or thinking clearly; forgetfulness ?? Dry skin, hair loss ?? Depression ?? Unexpected weight gain ?? Feeling cold, or cold hands and/or feet Home Care: Take your medicine exactly as directed at the same time every day. Don't take thyroid pills with soymilk since this interferes with absorption. After taking your thyroid medicine: ?? Wait 4 hours before eating or drinking anyth ing that contains soy. ?? Wait 4 hours before taking iron supplements, antacids that contain either calcium or aluminum hydroxide, or calcium supplements (regular amounts of cows milk are probably okay). Do not stop treatment on your own. If you do, your symptoms will return. Eat a high-fiber, low-calorie diet to relieve constipation and maintain a healthy weight. Get regular exercise. Talk to your doctor about an exercise program that is right for you. Follow Up with your doctor or as advised by our staff. Your thyroid level will need to be monitored for the rest of your life. During your routine visits, tell your doctor about any symptoms such as the ones listed below. Get Prompt Medical Attention if any of the following occur: ?? Extreme fatigue ?? Puffy hands, face, or feet ?? Chest pain or trouble breathing ?? Palpitations or irregular heartbeat ?? Confusion or loss of consciousness ?? [id number] [facility], [address] [place] [address]. All rights reserved. This information is not [...] if you dont have one. Go to [email or web address] and click on Create Your Account. Then, follow the directions to complete the online form. Youll be asked for your [facility] number which you can find at the top of this document. Your Goals/Additional instructions: This document has images extracted. Please consider using [employer] for all your patient education needs. Source: [facility] POWERCHART Document Id: [id number] HOUSE TECHNICIAN Miscellaneous - Fortino Alarcon M.D. - 11/17/2015 3:21 PM CST Ambulatory Discharge Medication List [address] [id number] Visit Information Name: ALFREDO OLIVEROS [facility] Number: [id number] Visit Date: 11/17/2015 15:21:14 Attending Provider: FORTINO ALARCON MD Primary Care [...] C) 500 mg, Oral, once a day This is a CHANGE bifidobacterium-lactobacillus (Probiotic Formula oral capsule) 1 cap, Oral, once a day busPIRone (BuSpar 5 mg oral tablet) 1 Tablet(s), Oral, three times a day New Routed to [address] [address] calcium-vitamin D (Calcium 500+D) 1 Tablet(s), two times a day cholecalciferol (Vitamin D3 1000 intl units oral tablet) 1 Tablet(s), Oral, once a day clonazePAM (clonazePAM 1 mg oral tablet) 1 Tablet(s), Oral, three times a day estradiol topical (Estrace Vaginal 0.1 mg/g vaginal cream) See Instructions 0.5 gm Vaginal Bedtime x3 weeks, then go to twice weekly at bedtime magnesium oxide (magnesium oxide 250 mg oral tablet) 2 Tablet(s), Oral, once a day multivitamin (Vitamin B Complex 100) 1 Tablet(s), Oral, once a day This is a CHANGE omega-3 polyunsaturated fatty acids (Fish Oil oral capsule) 1 cap, Oral, once a day ranitidine (Zantac 75) 75 mg, Oral, two times a day as needed Stop Taking the Following Medications: buPROPion (buPROPion XL 150 mg/24 hours oral extended release tablet) Medication list as of 11-17-15 15:21 Attention: If you have any medications at [...] Electronically Signed By: FORTINO ALARCON MD Signed On:17-NOV-2015 15:21:01 Additional Information: Source: [facility] POWERCHART Document Id: [id number] HOUSE TECHNICIAN Miscellaneous - Margarita Camacho L.P.N. - 11/17/2015 2:35 PM CST Adult Manager Consumer Intake/History Adult Manager Consumer Intake/History Entered On: 11/17/2015 14:37 PUMP HOUSE TECHNICIAN Performed On: 11/17/2015 14:35 PUMP HOUSE TECHNICIAN by MARGARITA CAMACHO LPN Intake Chief Complaint : 1. stopped Wellbutrin on 11/04/2015 due to ringing in the ears and a worsening in her anxiety Peripheral Pulse Rate : 72 /min Respiratory Rate : 16 /min Systolic Blood Pressure : 121 mmHg Diastolic Blood Pressure : 63 mmHg NIBP Mean : 82 mmHg BP Location : Left upper extremity Blood Pressure Cuff Size : Large Height : 170 cm(Converted to: 5 ft 7 inch(es), 67 inch(es)) Actual Weight : 86.5 kg(Converted to: 190 lb 11 oz) Weight Source : Standing scale Dosing Weight Clinic : 86.5 kg Clinic BSA : 2.02 Body Mass Index : 29.93 kg/m2 MARGARITA CAMACHO LPN - 11/17/2015 14:35 PUMP HOUSE TECHNICIAN General Info Information Given By : Patient Preferred Communication Mode : Verbal, Written Languages : Czech Is Patient Female and 13-50 no hysterectomy : No MARGARITA CAMACHO LPN - 11/17/2015 14:35 PUMP HOUSE TECHNICIAN Subjective Pain Symptoms : MARGARITA Collazo LPN - 11/17/2015 14:35 PUMP HOUSE TECHNICIAN Dependent Habits Exposure to Tobacco Smoke : Other: never Smoking Status : Never smoker Tobacco 2A : No Tobacco Use/Currently Using : No Tobacco Use/Last 30 Days : No Tobacco Use/Last 12 months : No MARGARITA CAMACHO ROBIN - 11/17/2015 14:35 PUMP HOUSE TECHNICIAN Caffeine Use Grid Caffeine Use : Current Type : Coffee Frequency : Daily Amount : 2 cups MARGARITA CAMACHO ROBIN - 11/17/2015 14:35 PUMP HOUSE TECHNICIAN Recreational Drug Use Grid Drug Use : None MARGARITA CAMACHO ROBIN - 11/17/2015 14:35 PUMP HOUSE TECHNICIAN Source: [facility] AkaRx Document Id: [id number] PUMP HOUSE TECHNICIAN!39 HOUSE TECHNICIAN documented in this encounter Plan of Treatment Upcoming Encounters Date Type Specialty Care Team Description 11/01/2022 Office Visit Urology Regina Black, DIANN, C.N.P. [address] [phone] (Wo rk) documented as of this encounter Procedures Procedure Name Priority Date/Time Associated Diagnosis Comme nts HCV AB SCRN Routine 11/17/2015 3:29 PM Results f or this W/REFLEX TO HCV PUMP HOUSE TECHNICIAN procedure ar e in PCR, S the results section. AUTOMATED Routine 11/17/2015 3:29 PM Results f or this DIFFERENTIAL, B PUMP HOUSE TECHNICIAN procedure ar e in the results section. IRON AND TOT Routine 11/17/2015 3:29 PM Results f or this IRON-BINDING PUMP HOUSE TECHNICIAN procedure are i n CAPACITY, S/P the results section. CBC WITH Routine 11/17/2015 3:29 PM Results f or this DIFFERENTIAL, B PUMP HOUSE TECHNICIAN procedure ar e in the results section. FERRITIN, S Routine 11/17/2015 3:29 PM Results f or this PUMP HOUSE TECHNICIAN procedure are i n the results section. BASIC METABOLIC Routine 11/17/2015 3:29 PM Result s for this PANEL, S/P PUMP HOUSE TECHNICIAN procedure are i n the results section. documented in this encounter Results Automated Differential (11/17/2015 3:29 PM PUMP HOUSE TECHNICIAN) athologist Signature Absolute 4.22 1.70 - POWERCHART Neutrophils 7.00 109L Lymphocytes 2.81 0.90 - POWERCHART 2.90 X109L Monocytes 0.60 0.30 - POWERCHART 0.90 X109L Eosinophils 0.21 0.05 - POWERCHART 0.50 X109L Absolute 0.03 0.00 - POWERCHART Basophil 0.30 X109L Specimen Anatomical Collection Method Collection Time Receive d Time (Source) Location / / Volume Laterality Blood 11/17/2015 3:29 PM 6 3:29 PUMP HOUSE TECHNICIAN PM PUMP HOUSE TECHNICIAN Fortino Alarcon M.D. LAB BLOOD ADD-ON Performing Organization Address City/State/ZIP Code Phon e Number POWERCHART CBC with Differential (11/17/2015 3:29 PM PUMP HOUSE TECHNICIAN) athologist Signature Leukocytes 7.9 3.4 - 10.5 POWERCHART X109L Erythrocytes 4.56 3.90 - 5.03 POWERCHART [id number] Hemoglobin 13.8 12.0 - 15.5 POWERCHART GDL Hematocrit 43.0 34.9 - 44.5 POWERCHART MCV 94.3 82.0 - 98.0 POWERCHART FL HX RDW 12.2 11.9 - 15.5 POWERCHART Platelet Count 256 150 - 450 POWERCHART X109L Specimen (Source) Anatomical Collection Method Collection Time Re ceived Time Location / / Volume Laterality Blood 11/17/2015 3:29 PM PUMP HOUSE TECHNICIAN Fortino Alarcon M.D. LAB BLOOD ADD-ON Performing Organization Address City/[facility]/ZIP Code Phon e Number POWERCHART HCV Ab w/Reflex to HCV PCR, S (medicare) (11/17/2015 3:29 PM PUMP HOUSE TECHNICIAN) athologist Signature HXHCV Ab Negative Negative POWERCHART [facility] Comment: Vxbvtm-ai-zsyxwa ratio is <1.00. Test Performed by: [address] [address] Molding Machine Operator: Maximo Liz II, M.D., Ph.D. Specimen (Source) Anatomical Collection Method Collection Time Re ceived Time Location / / Volume Laterality Blood 11/17/2015 3:29 PM PUMP HOUSE TECHNICIAN Fortino Alarcon M.D. LAB MICROBIOLOGY - BLOOD ORD ERABLES Performing Organization Address City/State/ZIP Code Phon e Number POWERCHART Iron and Total Iron-Binding Capacity (11/17/2015 3:29 PM PUMP HOUSE TECHNICIAN) Analysis Performed At Patho logist Time Signature Iron 53 35 - 145 POWERCHART MCGDL Percent Saturation 18.5 13.9 - POWERCHART 50.1 Total Iron Binding 287 250 - 400 POWERCHART Capacity UGDL Unbound Iron 234 MCGDL POWERCHART Concentration Specimen (Source) Anatomical Collection Method Collection Time Re ceived Time Location / / Volume Laterality Blood 11/17/2015 3:29 PM PUMP HOUSE TECHNICIAN Fortino Alarcon M.D. LAB BLOOD ADD-ON Performing Organization Address [facility]/ZIP [facility] Phon e Number POWERCHART Ferritin (11/17/2015 3:29 PM PUMP HOUSE TECHNICIAN) athologist Signature Ferritin, S 44.9 11.0 - POWERCHART 307.0 NGML Specimen (Source) Anatomical Collection Method Collection Time Re ceived Time Location / / Volume Laterality Blood 11/17/2015 3:29 PM PUMP HOUSE TECHNICIAN Fortino Alarcon M.Irma LAB BLOOD ADD-ON Performing Organization Address [facility] Phon e Number POWERCHART BMP (Basic Metabolic Panel) (11/17/2015 3:29 PM PUMP HOUSE TECHNICIAN) P athologist Signature Anion Gap 13 7 - 15 POWERCHART MMOLL BUN (Blood Urea 18 6 - 21 POWERCHART Nitrogen), S MGDL Chloride, S 102 98 - 107 POWERCHART MMOLL CO2 Total 28 22 - 29 POWERCHART MMOLL Creatinine 0.8 0.6 - 1.1 POWERCHART MGDL Glucose 75 70 - 139 POWERCHART MGDL Calcium, Total, 9.8 8.0 - 10.3 POWERCHART S MGDL Sodium, S 143 135 - 145 POWERCHART MMOLL Potassium, S 5.0 3.6 - 5.2 POWERCHART MMOLL HXeGFR (MDRD) >60 >=60 POWERCHART [id number] eGFR >60 >=60 POWERCHART Black/ [id number] Samoan Specimen (Source) Anatomical Collection Method Collection Time Re ceived Time Location / / Volume Laterality Blood 11/17/2015 3:29 PM PUMP HOUSE TECHNICIAN Phforrest Phyo M.D. LAB BLOOD ADD-ON Performing Organization Address City/[facility]/ZIP Code Phon e Number POWERCHART documented in this encounter Visit Diagnoses Not on filedocumented in this encounter
--- OUTSIDE RECORDS SUMMARY | 2022-09-22 13:37 | XMS_ITS | Encounter Summary ---
:1955 Author Organization [facility] Address [address] [place] [address] Care Team Providers Name Role Phone Unavailable Primary Care Provider Unavailable Encounter Details Date Type Department Care Team Description 01/12/2016 Hospital Encounter HX [facility] FB Fortino Yadav M.D. [address] [place] [address] 761 Social History Tobacco Use Types Packs/Day [...] How often do you attend bahai or shinto services? Never 05/13/2019 Do you [...] at Date Recorded Female 11/29/2017 6:36 PM YARD JACKER documented as of this encounter Last Filed Vital Signs Vital Sign Reading Time Taken Comments Blood Pressure 94/57 01/12/2016 8:43 AM YARD JACKER Pulse 71 01/12/2016 8:43 AM YARD JACKER Temperature - - Respiratory Rate 16 01/12/2016 8:43 AM YARD JACKER Oxygen Saturation - - Inhaled Oxygen Concentration - - Weight 87 kg (191 lb 12.8 oz) 01/12/2016 8:43 AM YARD JACKER Height 170 cm (5' 6.93) 01/12/2016 8:43 AM YARD JACKER Body Mass Index 30.1 01/12/2016 8:43 AM YARD JACKER documented in this encounter Medications at Time of Discharge Medication Sig Dispensed Refills Start Date End Date miscellaneous medical autoSV, heated 0 09/20/2014 supply misc humidifier, mask, headgear, filters and tubing. Length of Need: 99 raNITIdine (for_ZANTAC) 75 Take 75 mg by mouth 0 08/12/2014 05/12/2018 mg tablet once as needed. documented as of this encounter H&P Notes Fortino Alarcon M.D. - 01/12/2016 8:35 AM CST [id number] CHIEF COMPLAINT/REASON FOR VISIT 1. Annual physical exam. 2. Review chronic medical problems. 3. Discuss test results. HISTORY OF PRESENT ILLNESS Alfredo is a 60-year-old female who presents to the clinic today for the above complaints. Her last physical exam was done on 01/10/2015. We discussed test results from 12/12/[address] Odette Gaytan. Results were remarkable for TSH 4.84. Free T4 and free T3 were normal. We discussed adult health preventive services. Today her PHQ-9 score was 4. I reviewed and updated patients medical and surgical history, family history, immunizations, allergies, and medications. She had colonoscopy complicated with perforation on 08/22/2014. There is no family history of colon cancer. Need to repeat screening colonoscopy in 2023. Her last mammogram was done on 09/15/2015. It was normal. She had annual gynecological exam with Dr. Radha Shaw, Air Pollution Engineer on 10/16/2015. Herlast Pap smear was done in June 2013. She had DXA bone density on 10/27/2015. Need to repeat everytwo years. She sees her dentist every six months and eye doctor once a year. Her dry eyes are improving. She is followed by eye doctor in [place], [place]. She hasnt started Restasis yet because her dry eyes are improving. She is currently taking three fish oil tablets daily. She feels sluggish in her stomach and colon. She has been using prune juice as needed. She eats 2-3 times a day. Her last colonoscopy was done on 08/22/2014. It showed diverticulosis. Patient mentioned that her nails are brittle which she attributes to her thyroid. It should be notedthat she is status post thyroid lobectomy and isthmectomy on 06/06/2015 at [facility]. She is currently taking Synthroid 25 mcg daily and Liothyronine (Cytomel) 12.5 mcg daily as recommended by her psychiatrist, Dr. Odette Gaytan. We discussed risks of hypothyroidism and hyperthyroidism. She feels that Buspar helped her anxiety. She is also taking Doxepin and Lexapro for anxiety. She mentioned that she is now sleeping six hours at night, but doesnt feel that it is enough sleep. She is using her BiPAP machine at night for complex obstructive sleep apnea. Per the patient, she had an echocardiogram within the last year as ordered by Dr. Long, Sleep Medicine specialist. According to Alfredo, it was normal. She continues to have bilateral tinnitus since starting Buspar as recommended by Dr. Marine Lovett, Family Medicine. She denies any problems hearing. Patient has upper right arm aches and pains, but is improving with physical therapy. She has historyof hyperlipidemia and impaired fasting glucose. Her most recent fasting glucose was normal. She is not on statin therapy currently. There were no symptoms and signs suggestive for diabetes mellitus type 2. Alfredo has history of acid reflux and hiatal hernia. She watches her diet regularly. I reviewed and updated her medication list. We discussed potential side effects. There are no additional questions, concerns, or complaints. MEDICATIONS Vitamin C 500 mg by mouth daily. Probiotic Formula 1 capsule by mouth daily. Buspar 5 mg by mouth three times a day. Vitamin D3 1000 units 1 tablet by mouth daily. Clonazepam 1 mg by mouth three times a day. Doxepin 10 mg by mouth at bedtime. Synthroid 25 mcg by mouth daily in the morning. Liothyronine 12.5 mcg daily in the morning. Magnesium oxide 500 mg by mouth daily. Vitamin B Complex 1 tablet by mouth daily. Fish Oil 3 capsules by mouth daily. Zantac 75 mg by mouth two times daily as needed. ALLERGIES Fluoxetine. Penicillin. Sulfa drug. Vitron-C. Wellbutrin. SYSTEMS REVIEW Please see HPI for pertinent positives, otherwise rest of ROS negative. PAST MEDICAL/SURGICAL HISTORY Thyroid nodule, right. Hypothyroidism, acquired. Hyponatremia. Hyperkalemia. Iron deficiency anemia. Anemia. Anxiety. Obstructive sleep apnea. Gastroesophageal reflux disease. Hiatal hernia. Diverticulosis of colon. Rosacea. Osteopenia. Dizziness. Fatigue. Shortness of breath. Impaired fasting glucose. Elevated liver function test. Family history of thyroid cancer. Status post removal of left breast fibroadenoma. Status post tonsillectomy. Status post D & C. History of bilateral strabismus surgery, 1985. Status post colonoscopy, 08/22/2014. Repeat in 10 years. Status post capsule endoscopy, 12/03/2014. Status post thyroid lobectomy and isthmectomy, 06/06/2015. PREVENTIVE SERVICES Colonoscopy: 08/22/2014. Tetanus booster: 06/22/2013. Influenza: 08/15/2015. SOCIAL HISTORY She is not . She denies tobacco or drug abuse. She drinks caffeine daily. She used to drink alcohol socially. FAMILY HISTORY Bladder cancer in brother. Emphysema in mother. Hypertension in mother. Coronary artery disease and myocardial infarction in father. Stroke in father. Gluten- sensitivity in sister. Her niece had thyroid cancer. VITAL SIGNS HEIGHT: 170 cm. WEIGHT: 87 kg. BMI: 30.1 kg/m2. PULSE: 71 /min. RESP: 16 /min. SYSTOLIC: 94 mmHg. DIASTOLIC: 57 mmHg. PHYSICAL EXAMINATION GENERAL: Patient is sitting. No distress. Able to talk without interruption. HEAD: No facial rash, asymmetry, or sinus tenderness. EYES: PERRLA. EOMI. No pallor, icterus, or conjunctivitis. She wears glasses. ENT: No nasal congestion, discharge, or bleeding. There is no ear infection or discharge. No mastoidtenderness. Tongue is moist and midline. No oral lesions. LYMPH NODES: No cervical or supraclavicular lymphadenopathy. PERIPHERAL VESSELS: Good radial pulses. HEART: No carotid bruit. No JVD. Regular rhythm. There is no S3, gallop, or thrill. She has cardiac murmur. LUNGS: Normal respiratory effort. Clear to auscultation. Normal percussion. ABDOMEN: Moves with respiration. Bowel sounds present. Soft. No rebound tenderness, guarding, or rigidity. No organomegaly. JOINTS: No joint swelling or deformity. No decreased range of motion. EXTREMITIES: No clubbing, cyanosis, edema, infection, or calf tenderness. GAIT: No abnormal gait. MENTAL: Alert and oriented x 3. Normal mood and affect. NEURO: Intact cranial nerves. Intact sensory and motor. Grossly nonfocal exam. IMPRESSION/REPORT/PLAN 1. Annual physical examination. We discussed adult health preventive services. She needs to eat healthy diet and exercise regularly to maintain healthy body weight and BMI. Today BMI is 30.1 kg/m2. Today PHQ-9 is 4. Her immunization record is up to date. Advised to see eye doctor once a year and dentist every six months. She needs health maintenance exam every year. She will follow with Dr. Radha Shaw, Air Pollution Engineer yearly. 2. History of skin basal cell cancer near left axilla. There were no skin complaints. She needs fullskin exam with aoc operations intelligence officer at least once a year. She will follow with Dr. Aneta Marie in [place], [place]. 3. Acquired hypothyroidism. She is euthyroid clinically. Recent TSH was high, but improving. Patientwas advised to continue current dose of Synthroid and Liothyronine daily in the morning on empty stomach. We discussed symptoms and signs suggestive for hypo- and hyperthyroidism. Need to check thyroidfunction tests on 01/26/2016. 4. Hyperlipidemia. Patient was advised to continue low cholesterol, low fat diet, regular exercise, and lifestyle modification. Need to check fasting lipid profile in 2 weeks. 5. Anxiety. It is fairly stable. Today PHQ-9 score is 4. She was advised to continue current medications. We discussed potential side effects from medications. She will follow with Dr. Odette Gaytan, Psychiatrist. 6. Obstructive sleep apnea. It is controlled. She will continue BiPAP use. 7. Bilateral tinnitus. There is no evidence of infection or obstruction. It could be due to Wellbutrin. We will refer her to [facility] and Dr. Ruel Partida, ENT. 8. Systolic murmur. She is asymptomatic. We discussed possible etiologies, further evaluation and management. Per the patient, she had normal echocardiogram within the last year at [facility].We need to get record. 9. Gastroesophageal reflux disease with hiatal hernia. It is controlled with diet. Patient will continue antireflux measures. 10. Constipation with history of diverticulosis. She needs to make sure fiber intake is adequate. She can try over the counter Metamucil or fiber supplementation. If she continues to have problem, she can use Colace as needed. If her symptoms are still not unresolved, she can take Miralax. 11. Osteopenia. She needs to make sure daily calcium and vitamin D intake are adequate, 1,200 mg ony651 units, respectively. It is better to have calcium through diet rather than medication. Need to check DXA bone density after 2017. 12. Impaired fasting glucose. There are no symptoms and signs suggestive for type 2 diabetes mellitus. Patient was advised to cut back calories and carbohydrates. We will monitor fasting glucose at subsequent visit. 13. Discussed test results. I reviewed test results from 12/12/2015. All questions were answered. The patient will return to the clinic in 3 months for followup. This document serves as a record of services personally performed by Dr. Fortino Alarcon. It was created on their behalf by Denny Newman, a trained medical lab specialist. The creation of this record is based on the scribe's personal observations and the provider's statements to them. This document has been checked and approved by the attending provider. Fortino Alarcon M.D./mirian Electronically Signed By: FORTINO ALARCON MD On: 01/17/2016 10:22 PM Modified by and Electronically Signed by: FORTINO ALARCON MD On: 01/17/2016 10:22 PM Source: [facility] MHSDOLBEYNONRADSYS Document Id: [id number] JACKER documented in this encounter Nursing Notes Nancy Cardona LJuanchoPJuanchoN. - 02/16/2016 3:39 PM CDT Prior authorization request synthroid Document Contains Addenda Addendum by JOLEEN SAUCEDO RN on February 20, 2016 15:01 CDT the prior authorization done for coverage of synthroid was approved from 02-16-16 through 02-15-17. faxed to pharmacy and scanned to chart. Modified by and Electronically Signed by: JOLEEN SAUCEDO RN On: 02/20/2016 03:01 PM Prior authorization request for Synthroid completed through Cover My Meds, [place] [id number]. Time spent on form15 minutes. Electronically Signed By: NANCY CARDONA LPN On: 02/16/2016 03:40 PM [facility] POWER[facility] Document Id: [id number] documented in this encounter Miscellaneous Notes Telephone Encounter - Sara Mahmood C.M.A. - 01/13/2016 8:54 AM CST FW: Need Echocardiogram report from [facility] Document Contains Addenda Addendum by FORTINO ALARCON MD on 13 January 2016 10:05:05 YARD JACKER From: FORTINO ALARCON MD To: ALFREDO OLIVEROS Cc: Dorian Nurse; Sent: 01/13/2016 10:05:05 YARD JACKER Subject: RE: Need Echocardiogram report from [facility] Actions: Notify patient of results Thank you, Alfredo. There is no significant heart valve issue. Dr. Alarcon From: SARA MAHMOOD CMA ( Internal Medicine Nurse) To: FORTINO ALARCON MD; Sent: 01/13/2016 08:54:40 YARD JACKER Subject: FW: Need Echocardiogram report from [facility] From: ALFREDO OLIVEROS To: [place] [facility] ( Internal Medicine Nurse) Sent: 01/13/2016 08:31 a.m. YARD JACKER Subject: RE: Need Echocardiogram report from [facility] Thank you for your message. It has been successfully sent to the appropriate care team. The echocardiogram report is attached. Official version will be sent from medical records. Addendum by EUSEBIO CAMACHO LPN on 12 January 2016 14:00:07 YARD JACKER Called and spoke with patient. Patient is positive she has had one done. Patient will look through her copies of all of her medical records and let us know when she finds it. Addendum by FORTINO ALARCON MD on 12 January 2016 12:26:19 YARD JACKER From: FORTINO ALARCON MD To: Dorian Nurse; ALFREDO OLIVEROS Sent: 01/12/2016 12:26:19 YARD JACKER Subject: RE: Need Echocardiogram report from [facility] Actions: Notify patient- refer to General Message, Notify patient of Future Order Please call Alfredo. We need to do Echocardiogram in [place]. Order is in EHR. Addendum by EUSEBIO CAMACHO LPN on 12 January 2016 11:15:52 YARD JACKER From: EUSEBIO CAMACHO LPN ( [place] Nurse) To: FORTINO ALARCON MD; Sent: 01/12/2016 11:15:52 YARD JACKER Subject: FW: Need Echocardiogram report from [facility] Addendum by EUSEBIO CAMACHO LPN on 12 January 2016 11:15:47 YARD JACKER Per Lily at the [facility], medical records, they have no report of an Echocardiogram. From: FORTINO ALARCON MD To: Dorian Nurse; Sent: 01/12/2016 09:30:06 YARD JACKER Subject: Need Echocardiogram report from [facility] We need Echocardiogram report from [facility]. It was done last year according to her. Source: [facility] POWERCHART Document Id: [id number] Miscellaneous - Fortino Alarcon M.D. - 01/12/2016 9:32 AM CST Ambulatory Patient Summary [address] [facility] [place], [place] [id number] Visit Information Name: MANINDERALFREDO LI PABLO [facility] Number: [id number] Current Date: 01/12/2016 09:32:09 Physicians Attending Provider: FORTINO ALARCON MD Primary Care Provider: FORTINO ALARCON MD SHARONDANICKDIALLO SHAH has been given the following list [...] 25 mcg (0.025 mg) oral tablet) 1 Tablet(s), Oral, once a day (in the morning) On empty stomach. CANDIDO This is a CHANGE liothyronine (liothyronine) 25 mcg, 0.5 tab(s), Oral, [...] as needed Stop Taking the Following Medications: estradiol topical (Estrace Vaginal 0.1 mg/g vaginal cream) Medication list as of 01-12-16 09:32 Attention: If you have any medications at [...] Electronically Signed By: FORTINO ALARCON MD Signed On:12-JAN-2016 09:31:58 Your Allergies & Intolerances Substance Reaction Symptoms [...] Your Upcoming Appointments Date Time Location Provider 01/26/2016 08:30 [facility] 05/18/2016 08:15 [facility] [...] if you dont have one. Go to [email or web address] and click on Create Your Account. Then, follow the directions to complete the online form. Youll be asked for your [facility] number which you can find at the top of this document. Your Goals/Additional instructions: Source: [facility] POWERCHART Document Id: [id number] JACKER Miscellaneous - Fortino Alarcon M.D. - 01/12/2016 9:32 AM CST Ambulatory Discharge Medication List [address] [id number] Visit Information Name: ALFREDO OLIVEROS [facility] Number: [id number] Visit Date: 01/12/2016 09:32:06 Attending Provider: FORTINO ALARCON MD Primary Care [...] 25 mcg (0.025 mg) oral tablet) 1 Tablet(s), Oral, once a day (in the morning) On empty stomach. CANDIDO This is a CHANGE liothyronine (liothyronine) 25 mcg, 0.5 tab(s), Oral, [...] as needed Stop Taking the Following Medications: estradiol topical (Estrace Vaginal 0.1 mg/g vaginal cream) Medication list as of 01-12-16 09:32 Attention: If you have any medications at [...] Electronically Signed By: FORTINO ALARCON MD Signed On:12-JAN-2016 09:31:58 Additional Information: Source: [facility] POWERCHART Document Id: [id number] JACKER Miscellaneous - Fortino Alarcon M.D. - 01/12/2016 9:30 AM CST Need Echocardiogram report from [facility] Document Contains Addenda Addendum by EUSEBIO CAMACHO LPN on 12 January 2016 14:00:07 YARD JACKER Called and spoke with patient. Patient is positive she has had one done. Patient will look through her copies of all of her medical records and let us know when she finds it. Addendum by FORTINO ALARCON MD on 12 January 2016 12:26:19 YARD JACKER From: FORTINO ALARCON MD To: [facility] Nurse; ALFREDO OLIVEROS Sent: 01/12/2016 12:26:19 YARD JACKER Subject: RE: Need Echocardiogram report from [facility] Actions: Notify patient- refer to General Message, Notify patient of Future Order Please call Alfredo. We need to do Echocardiogram in [place]. Order is in EHR. Addendum by EUSEBIO CAMACHO LPN on 12 January 2016 11:15:52 YARD JACKER From: EUSEBIO CAMACHO LPN (FB [facility] Nurse) To: FORTINO ALARCON MD; Sent: 01/12/2016 11:15:52 YARD JACKER Subject: FW: Need Echocardiogram report from [facility] Addendum by EUSEBIO CAMACHO LPN on 12 January 2016 11:15:47 YARD JACKER Per Lily at the [facility], medical records, they have no report of an Echocardiogram. From: FORTINO ALARCON MD To: KEDAR Alarcon Nurse; Sent: 01/12/2016 09:30:06 YARD JACKER Subject: Need Echocardiogram report from [facility] We need Echocardiogram report from [facility]. It was done last year according to her. Source: [facility] Vertical Knowledge Document Id: [id number] Miscellaneous - Eusebio Camacho, L.P.N. - 01/12/2016 8:43 AM CST PHQ-9 PHQ-9 Entered On: 01/12/2016 8:43 YARD JACKER Performed On: 01/12/2016 8:43 YARD JACKER by EUSEBIO CAMACHO LPN PHQ-9 Little interest or pleasure in doing things : Not at all Feeling down, depressed, or hopeless : Not at all Trouble falling or staying asleep, or sleeping too much : More than half the days Feeling tired or having little energy : Several days Poor appetite or overeating : Not at all Feeling bad about yourself or that you are a failure : Not at all Trouble concentrating on things : Several days Moving or speaking slowly; restless or fidgety : Not at all Thoughts that you would be better off /hurting self : Not at all PHQ-9 Calculated Score : 4 Problems make work, home, or dealing with others : Somewhat difficult EUSEBIO CAMACHO LPN - 01/12/2016 8:43 YARD JACKER Source: [facility] Vertical Knowledge Document Id: [id number] YARD JACKER!13 JACKER Miscellaneous - Eusebio Camacho L.P.N. - 01/12/2016 8:43 AM CST Adult Hospital Pharmacy Director Intake/History Adult Hospital Pharmacy Director Intake/History Entered On: 01/12/2016 8:47 YARD JACKER Performed On: 01/12/2016 8:43 YARD JACKER by EUSEBIO CAMACHO LPN Intake Chief Complaint : 1. Annual Physical 2. sluggish colon 3. brittle nails 4. upper right arm still aches, physical therapy did help some 5. tinnitis 6. still only sleeping 6 hours Peripheral Pulse Rate : 71 /min Respiratory Rate : 16 /min Systolic Blood Pressure : 94 mmHg Diastolic Blood Pressure : 57 mmHg NIBP Mean : 69 mmHg BP Location : Right upper extremity Blood Pressure Cuff Size : Large Height : 170 cm(Converted to: 5 ft 7 inch(es), 67 inch(es)) Actual Weight : 87 kg(Converted to: 191 lb 13 oz) Weight Source : Standing scale Dosing Weight Clinic : 87 kg Clinic BSA : 2.03 Body Mass Index : 30.1 kg/m2 EUSEBIO CAMACHO LPN - 01/12/2016 8:43 YARD JACKER General Info Information Given By : Patient Preferred Communication Mode : Verbal, Written Languages : Turkish Is Patient Female and 13-50 no hysterectomy : No EUSEBIO CAMACHO LPN - 01/12/2016 8:43 YARD JACKER Subjective Pain Symptoms : EUSEBIO Collazo LPN - 01/12/2016 8:43 YARD JACKER Dependent Habits Exposure to Tobacco Smoke : Other: never Smoking Status : Never smoker Tobacco 2A : No Tobacco Use/Currently Using : No Tobacco Use/Last 30 Days : No Tobacco Use/Last 12 months : No EUSEBIO CAMACHO LPN - 01/12/2016 8:43 YARD JACKER Caffeine Use Grid Caffeine Use : Current Type : Coffee Frequency : Daily Amount : 2 cups EUSEBIO CAMACHO LPN - 01/12/2016 8:43 YARD JACKER Recreational Drug Use Grid Drug Use : None EUSEBIO CAMACHO LPN - 01/12/2016 8:43 YARD JACKER [facility] Document Id: [id number] YARD JACKER!39 JACKER documented in this encounter Plan of Treatment Upcoming Encounters Date Type Specialty Care Team Description 11/01/2022 Office Visit Urology Regina Black APRN, C.N.P. [address] [phone] (Wo rk) documented as of this encounter Visit Diagnoses Not on filedocumented in this encounter Additional Health Concerns Assessment Noted Time PHQ-9 Depression Total Score: 4 01/12/2016 8:43 AM YARD JACKER documented as of this encounter
--- OUTSIDE RECORDS SUMMARY | 2022-09-22 13:37 | XMS_ITS | Encounter Summary ---
:1955 Author Organization [facility] Address [address] [place] [address] Care Team Providers Name Role Phone Unavailable Primary Care Provider Unavailable Encounter Details Date Type Department Care Team Description 07/18/2015 Hospital Encounter [facility] FB LAB Fortino Alarcon M.D. 1517 [facility], [facility] [address] [phone] Social History Tobacco Use Types Packs/Day [...] How often do you attend christianity or rastafari services? 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 - 07/21/2015 9:33 PM CDT Thyroid test 07/18/2015 Document Contains Addenda Addendum by EUSEBIO CAMACHO LPN on 24 July 2015 15:54:36 CDT Patient notified. Addendum by RICHELLE PIRES LPN on 23 July 2015 14:46:10 CDT Attemped to call patient no answer will try again later Addendum by FORTINO ALARCON MD on 23 July 2015 12:11:39 CDT From: FORTINO ALARCON MD To: Dorian Nurse; Sent: 07/23/2015 12:11:39 CDT Subject: RE: Thyroid test 07/18/2015 Actions: Notify patient- refer to General Message, Notify patient of Future Order OK. Orders in EHR. Addendum by EUSEBIO CAMACHO LPN on 22 July 2015 10:00:46 CDT From: EUSEBIO CAMACHO LPN ([facility] Nurse) To: FORTINO ALARCON MD; Sent: 07/22/2015 10:00:46 CDT Subject: FW: Thyroid test 07/18/2015 Addendum by EUSEBIO CAMACHO LPN on 22 July 2015 10:00:40 CDT Called and spoke with patient. Patient would feel more comfortable if her T3 and T4 levels were checked prior to starting medication. Please advise. From: FORTINO ALARCON MD To: [facility] Nurse; ALFREDO OLIVEROS Sent: 07/21/2015 21:33:37 CDT ! Subject: Thyroid test 07/18/2015 Actions: Notify patient of results, Notify patient of Future Order Please call Alfredo. TSH(Thyroid test) came back high. We need to start thyroid supplementation. It is better to take brand Synthroid 25 mcg by mouth daily in the morning on empty stomach, because of difference in absorption and effectiveness. If she decides to take generic Synthroid, we need to keep an eye on drug company making the medication. We need to recheck TSH, free T3 and free T4 in 2 months. I sent new prescription. All orders in EMR. Results: Date Result Name Ind Value Ref Range 07/18/2015 09:57 TSH (H) 7.53 mIU/L (0.27 - 4.20) Source: [facility] POWERCHART Document Id: [id number] Electronically signed by Conversion, [facility] Manager Golf [id number] at 04/11/2017 8:02 PM CDT documented in this encounter Plan of Treatment Upcoming Encounters Date Type Specialty Care Team Description 11/01/2022 Office Visit Urology Regina Black APRN, C.N.P. [address] [phone] (Wo rk) documented as of this encounter Procedures Procedure Name Priority Date/Time Associated Diagnosis Comme nts THYROID-STIMULATING Routine 07/18/2015 9:57 AM Re sults for this HORMONE-SENSITIVE CDT procedure are in (S-TSH) the results section. documented in this encounter Results (ABNORMAL) Thyroid-Stimulating Hormone-Sensitive (s-TSH) (07/18/2015 9:57 AM CDT) P athologist Signature TSH 7.53 (H) 0.27 - POWERCHART (Thyrotropin) 4.20 MIUL Specimen (Source) Anatomical Collection Method Collection Time Re ceived Time Location / / Volume Laterality Blood 07/18/2015 9:57 AM CDT Fortino Alarcon M.D. LAB BLOOD ADD-ON Performing Organization Address City/State/ZIP Code Phon e Number POWERCHART documented in this encounter Visit Diagnoses Not on filedocumented in this encounter
--- OUTSIDE RECORDS SUMMARY | 2022-09-22 13:37 | XMS_ITS | Encounter Summary ---
:1955 Author Organization [facility] Address [address] [place] [address] Care Team Providers Name Role Phone Unavailable Primary Care Provider Unavailable Encounter Details Date Type Department Care Team Description 12/12/2015 Hospital Encounter HX [facility] LAB Provider, Historic al Social History Tobacco Use Types Packs/Day Years [...] How often do you attend restorationism or anabaptism services? Never 05/13/2019 Do you [...] or slept in a chcf (including now)? Sex Assigned at Date Recorded Female 11/29/2017 6:36 PM DEGREE CLERK documented as of this encounter Last Filed Vital Signs Vital Sign Reading Time Taken Comments Blood Pressure - - Pulse - - Temperature - - Respiratory Rate - - Oxygen Saturation - - Inhaled Oxygen Concentration - - Weight - - Height 170 cm (5' 6.93) 12/12/2015 8:47 AM DEGREE CLERK Body Mass Index - - documented in [...] Visit Urology Regina Black, DIANN, C.N.P. [address] [phone] (Wo rk) documented as of this encounter Procedures Procedure Name Priority Date/Time Associated Comments Diagnosis CARNITINE, P Routine 12/12/2015 9:05 Results for this AM DEGREE CLERK procedure are i n the results section. PHOSPHOLIPIDS, S Routine 12/12/2015 9:05 Results for this AM DEGREE CLERK procedure are i n the results section. CORTISOL RANDOM, S Routine 12/12/2015 9:05 Result s for this AM DEGREE CLERK procedure are i n the results section. THYROPEROXIDASE (TPO) Routine 12/12/2015 9:05 Res ults for this ABS, S AM DEGREE CLERK procedure are i n the results section. IRON AND TOT Routine 12/12/2015 9:05 Results for this IRON-BINDING CAPACITY, AM DEGREE CLERK proce dure are in S/P the results section. THYROID-STIMULATING Routine 12/12/2015 9:05 Resul ts for this IMMUNOGLOBULIN (TSI), S AM DEGREE CLERK proc edure are in the results section. THIAMIN (VITAMIN B1), B Routine 12/12/2015 9:05 R esults for this AM DEGREE CLERK procedure are i n the results section. CONNECTIVE TISSUE Routine 12/12/2015 9:05 Results for this DISEASE CASCADE, CLEMENCIA, AM DEGREE CLERK proc edure are in S the results section. VITAMIN A, S Routine 12/12/2015 9:05 Results for this AM DEGREE CLERK procedure are i n the results section. ACTH, P Routine 12/12/2015 9:05 Results for this AM DEGREE CLERK procedure are i n the results section. SEDIMENTATION RATE, B Routine 12/12/2015 9:05 Res ults for this AM DEGREE CLERK procedure are i n the results section. T3 (TRIIODOTHYRONINE), Routine 12/12/2015 9:05 Re sults for this TOT, S AM DEGREE CLERK procedure are i n the results section. THYROID-STIMULATING Routine 12/12/2015 9:05 Resul ts for this HORMONE-SENSITIVE AM DEGREE CLERK procedure are in (S-TSH) the results section. T4 (THYROXINE), TOT Routine 12/12/2015 9:05 Resul ts for this ONLY, S AM DEGREE CLERK procedure are i n the results section. VITAMIN B12 ASSAY, S Routine 12/12/2015 9:05 Resu lts for this AM DEGREE CLERK procedure are i n the results section. documented in this encounter Results Sedimentation Rate (12/12/2015 9:05 AM DEGREE CLERK) Analysis Performed At Patho logist Time Signature Sedimentation 7 0 - 29 POWERCHART Rate, B MMHR Specimen (Source) Anatomical Collection Method Collection Time Re ceived Time Location / / Volume Laterality Blood 12/12/2015 9:05 AM DEGREE CLERK Historical Provider LAB BLOOD ADD-ON Performing Organization Address City/State/ZIP Code Phon e Number POWERCHART Phospholipids (12/12/2015 9:05 AM DEGREE CLERK) P athologist Signature Phospholipids, 225 155 - 275 POWERCHART S MGDL Comment: Test Performed by: [address] [address] Lead Refinery Supervisor: Maximo Liz II, M.D., Ph.D. Specimen (Source) Anatomical Collection Method Collection Time Re ceived Time Location / / Volume Laterality Blood 12/12/2015 9:05 AM DEGREE CLERK Historical Provider LAB BLOOD ADD-ON Performing Organization Address City/State/ZIP Code Phon e Number POWERCHART Connective Tissue Disease [place], CLEMENCIA (12/12/2015 9:05 AM DEGREE CLERK) Patholo gist Method Time Signature Antinuclear Ab 0.4 <=1.0 POWERCHART Screen by IFA, S (Negative ) UNITS Cyclic <15.6 <20.0 POWERCHART Citrullinated (Negative Peptide Ab, S ) UNITS Interpretation See Comment POWERCHART Comment: Tests for antibodies to dsDNA and LETICIA an tigens are not performed automatically unless the ELLE r esult is > or = 3.0 U. ??Studies performed at [facility] indicate that positive ELLE results <3.0 U are rarely a ccompanied by positive second order tests. Test Performed by: [place] [address] Lead Refinery Supervisor: Maximo Liz II, M.D., Ph.D. Specimen (Source) Anatomical Collection Method Collection Time Re ceived Time Location / / Volume Laterality Blood 12/12/2015 9:05 AM DEGREE CLERK Historical Provider LAB BLOOD ADD-ON Performing Organization Address [facility] Phon e Number POWERCHART Vitamin A Level (12/12/2015 9:05 AM DEGREE CLERK) athologist Signature Vitamin A 49.5 32.5 - 78.0 POWERCHART MCGDL Comment: Test Performed by: [address], [place] [address] Lead Refinery Supervisor: Sajan Funes Specimen (Source) Anatomical Collection Method Collection Time Re ceived Time Location / / Volume Laterality Blood 12/12/2015 9:05 AM DEGREE CLERK Historical Provider LAB BLOOD NON ADD-ON Performing Organization Address City/[facility] Code Phon e Number POWERCHART Cortisol Random (12/12/2015 9:05 AM DEGREE CLERK) P athologist Signature Cortisol, S 11.5 MCGDL POWERCHART Comment: Cortisol Reference Range: a.m. specimen ?? 7 ? 25 mcg/dL p.m. specimen ?? 2 -14 mcg/dL Specimen (Source) Anatomical Collection Method Collection Time Re ceived Time Location / / Volume Laterality Blood 12/12/2015 9:05 AM DEGREE CLERK Historical Provider LAB BLOOD ADD-ON Performing Organization Address City/[facility]/ZIP Code Phon e Number POWERCHART ACTH (Adrenocorticotropic Hormone) (12/12/2015 9:05 AM DEGREE CLERK) [facility] Method Time Signature Adrenocorticotropic 14 PGML POWERCHART Hormone, P Comment: REFERENCE VALUE------ 10-60 (a.m. collection) Test Performed by: [facility] [place] [address] Lead Refinery Supervisor: Maximo Liz II, M.D., Ph.D. Specimen (Source) Anatomical Collection Method Collection Time Re ceived Time Location / / Volume Laterality Blood 12/12/2015 9:05 AM DEGREE CLERK Historical Provider LAB BLOOD NON ADD-ON Performing Organization Address City/[facility]/ZIP Code Phon e Number POWERCHART Thiamin (Vitamin B1) (12/12/2015 9:05 AM DEGREE CLERK) athologist Signature Thiamine 118 70 - 180 POWERCHART (Vitamin B1), NMOLL WB Comment: Test Performed by: [place] [address] Lead Refinery Supervisor: Sajan Funes Specimen (Source) Anatomical Collection Method Collection Time Re ceived Time Location / / Volume Laterality Blood 12/12/2015 9:05 AM DEGREE CLERK Historical Provider LAB BLOOD NON ADD-ON Performing Organization Address City/[facility] Phon e Number POWERCHART Carnitine (12/12/2015 9:05 AM DEGREE CLERK) [facility] Method Time Signature Total 41 34 - 78 POWERCHART NMOLML Free (FC) 34 25 - 54 POWERCHART NMOLML Acylcarnitine 7 5 - 30 POWERCHART (AC) NMOLML AC/FC Ratio 0.2 0.1 - 0.8 POWERCHART HXCarnitine See Comment POWERCHART [facility] Comment: RESULT: In this sample, the carnitine pr ofile was normal. Test Performed by: [facility] [place] [address] Lead Refinery Supervisor: Maximo Liz II, M.D., Ph.D. Specimen (Source) Anatomical Collection Method Collection Time Re ceived Time Location / / Volume Laterality Blood 12/12/2015 9:05 AM DEGREE CLERK Historical Provider LAB BLOOD ADD-ON Performing Organization Address City/State/ZIP Code Phon e Number POWERCHART Thyroid-Stimulating Immunoglobulin (TSI) (12/12/2015 9:05 AM DEGREE CLERK) athologist Signature Thyroid-Stimula <1.0 <=1.3 POWERCHART ting Immunoglob, S Comment: Test Performed by: [facility] [address] [id number] Lead Refinery Supervisor: Maximo Liz II, M.D., Ph.D. Specimen (Source) Anatomical Collection Method Collection Time Re ceived Time Location / / Volume Laterality Blood 12/12/2015 9:05 AM DEGREE CLERK Historical Provider LAB BLOOD ADD-ON Performing Organization Address City/State/ZIP Code Phon e Number POWERCHART T4 (Thyroxine), Total Only (12/12/2015 9:05 AM DEGREE CLERK) athologist Signature T4 (Thyroxine), 6.2 4.5 - 11.7 POWERCHART Total Only, S MCGDL Specimen (Source) Anatomical Collection Method Collection Time Re ceived Time Location / / Volume Laterality Blood 12/12/2015 9:05 AM DEGREE CLERK Historical Provider LAB BLOOD ADD-ON Performing Organization Address City/State/ZIP Code Phon e Number POWERCHART T3 (Triiodothyronine), Total (12/12/2015 9:05 AM DEGREE CLERK) athologist Signature T3 86 80 - 200 POWERCHART (Triiodothyroni NGDL ne), Total, S Specimen (Source) Anatomical Collection Method Collection Time Re ceived Time Location / / Volume Laterality Blood 12/12/2015 9:05 AM DEGREE CLERK Historical Provider LAB BLOOD ADD-ON Performing Organization Address City/State/ZIP Code Phon e Number POWERCHART Thyroperoxidase (TPO) Antibodies (12/12/2015 9:05 AM DEGREE CLERK) [facility] gist Method Time Signature Thyroperoxidase Ab, 0.6 <9.0 POWERCHART S INTUML Comment: Test Performed by: [facility] [address] [place] [address] Lead Refinery Supervisor: Maximo Liz II, M.D., Ph.D. Specimen (Source) Anatomical Collection Method Collection Time Re ceived Time Location / / Volume Laterality Blood 12/12/2015 9:05 AM DEGREE CLERK Historical Provider LAB BLOOD ADD-ON Performing Organization Address City/State/ZIP Code Phon e Number POWERCHART (ABNORMAL) Thyroid-Stimulating Hormone-Sensitive (s-TSH) (12/12/2015 9:05 AM DEGREE CLERK) P athologist Signature TSH 4.84 (H) 0.27 - POWERCHART (Thyrotropin) 4.20 MIUL Specimen (Source) Anatomical Collection Method Collection Time Re ceived Time Location / / Volume Laterality Blood 12/12/2015 9:05 AM DEGREE CLERK Historical Provider LAB BLOOD ADD-ON Performing Organization Address City/State/ZIP Code Phon e Number POWERCHART Iron and Total Iron-Binding Capacity (12/12/2015 9:05 AM DEGREE CLERK) Analysis Performed At Patho logist Time Signature Iron 95 35 - 145 POWERCHART MCGDL Percent Saturation 35.2 13.9 - POWERCHART 50.1 Total Iron Binding 270 250 - 400 POWERCHART Capacity UGDL Unbound Iron 175 MCGDL POWERCHART Concentration Specimen (Source) Anatomical Collection Method Collection Time Re ceived Time Location / / Volume Laterality Blood 12/12/2015 9:05 AM DEGREE CLERK Historical Provider LAB BLOOD ADD-ON Performing Organization Address City/State/ZIP Code Phon e Number POWERCHART Vitamin B12 Assay (12/12/2015 9:05 AM DEGREE CLERK) P athologist Signature Vitamin B12 794 180 - 914 POWERCHART Assay, S NGL Specimen (Source) Anatomical Collection Method Collection Time Re ceived Time Location / / Volume Laterality Blood 12/12/2015 9:05 AM DEGREE CLERK Historical Provider LAB BLOOD ADD-ON Performing Organization Address City/State/ZIP Code Phon e Number POWERCHART documented in this encounter Visit Diagnoses Not on filedocumented in this encounter
--- OUTSIDE RECORDS SUMMARY | 2022-09-22 13:37 | XMS_ITS | Encounter Summary ---
:1955 Author Organization [facility] Address [address] [place] [address] Care Team Providers Name Role Phone Unavailable Primary Care Provider Unavailable Encounter Details Date Type Department Care Team Description 06/06/2015 Hospital Encounter HX NO MAPPING Social History Tobacco Use Types Packs/Day Years [...] How often do you attend worship or scientology services? 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 [address] [phone] (Wo rk) documented as of this encounter Visit Diagnoses Not on filedocumented in this encounter
--- OUTSIDE RECORDS SUMMARY | 2022-09-22 13:37 | XMS_ITS | Encounter Summary ---
:1955 Author Organization [facility] Address [address] [place] [address] Care Team Providers Name Role Phone Unavailable Primary Care Provider Unavailable Encounter Details Date Type Department Care Team Description 09/15/2015 Hospital Encounter HX [facility] Leonardo Sr M.D. [address] [address] Social History Tobacco Use Types Packs/Day [...] er 09/12/2022 How often do you attend jain or scientologist services? Never 05/13/2019 Do you belong to any clubs or organizations such as jain N o 09/12/2022 groups, unions, fraternal or [...] at Date Recorded Female 11/29/2017 6:36 PM DATABASE ADMINISTRATION MANAGER documented as of this encounter Last Filed Vital Signs Vital Sign Reading Time Taken Comments Blood Pressure - - Pulse - - Temperature - - Respiratory Rate - - Oxygen Saturation - - Inhaled Oxygen Concentration - - Weight - - Height 170 cm (5' 6.93) 09/15/2015 8:23 AM DATABASE ADMINISTRATION MANAGER Body Mass Index - - documented [...] Urology Regina Black APRN, C.N.P. [address] [phone] (Wo rk) documented as of this encounter Procedures Procedure Name Priority Date/Time Associated Diagnosis Comme [facility] BI BREAST SCREENING Routine 09/15/2015 8:55 AM Re sults for this BILATERAL DATABASE ADMINISTRATION MANAGER procedure are i n the results section. documented in this encounter Results BI Breast Screening Bilateral (09/15/2015 8:55 AM DATABASE ADMINISTRATION MANAGER) Anatomical Region Laterality Modality Breast Bilateral Mammography Specimen (Source) Anatomical Collection Method Collection Time Re ceived Time Location / / Volume Laterality 09/15/2015 8:55 AM DATABASE ADMINISTRATION MANAGER Impressions 09/15/2015 12:53 PM DATABASE ADMINISTRATION MANAGER No mammographic findings for malignancy in either [...] on the digital mammogram im ages. Narrative 09/15/2015 12:53 PM DATABASE ADMINISTRATION MANAGER EXAM: [place] w[place] CADD INDICATION: mammo COMPARISON: 09/12/2014, 08/31/2013, 08/14 FINDINGS: Scattered fibroglandular densi ties both breasts. Procedure Note Norm Meyer M.D. / Provider, Alok morris M.D. - 03/24/2017 EXAM: [place] w[place] CADD INDICATION: mammo COMPARISON: 09/12/2014, 08/31/2013, 08/14 FINDINGS: Scattered fibroglandular densi ties both breasts. [...] performed on the digital mammogram im ages. Regina Rogel(R), RJuanchoTJuancho(R)(M) IM BI PENNY ES documented in this encounter Visit Diagnoses Not on filedocumented in this encounter
--- OUTSIDE RECORDS SUMMARY | 2022-09-22 13:37 | XMS_ITS | Encounter Summary ---
:1955 Author Organization [facility] Address [address] [place] [address] Care Team Providers Name Role Phone Unavailable Primary Care Provider Unavailable Encounter Details Date Type Department Care Team Description 08/11/2015 Hospital Encounter HX [facility] FB LAB Cindy Alarcon M.D. 1513 [facility], [facility] [address] [address] Social History Tobacco Use Types Packs/Day [...] How often do you attend muslim or gnosticist services? Never 05/13/2019 Do you belong to [...] at Date Recorded Female 11/29/2017 6:36 PM IRON PILER documented as of this encounter Last Filed Vital Signs Vital Sign Reading Time Taken Comments Blood Pressure - - Pulse - - Temperature - - Respiratory Rate - - Oxygen Saturation - - Inhaled Oxygen Concentration - - Weight - - Height 170 cm (5' 6.93) 08/11/2015 8:49 AM CDT Body Mass Index - - [...] Urology Regina Black APRN, C.N.P. [address] [place] [phone] (Wo rk) documented as of this encounter Procedures Procedure Name Priority Date/Time Associated Diagnosis Comme nts IRON AND TOT Routine 08/11/2015 9:00 AM Results f or this IRON-BINDING CDT procedure are i n CAPACITY, S/P the results section. FERRITIN, S Routine 08/11/2015 9:00 AM Results f or this CDT procedure are i n the results section. documented in this encounter Results Ferritin (08/11/2015 9:00 AM CDT) P athologist Signature Ferritin, S 101.3 11.0 - POWERCHART 307.0 NGML Specimen (Source) Anatomical Collection Method Collection Time Re ceived Time Location / / Volume Laterality Blood 08/11/2015 9:00 AM CDT Cindy Alarcon M.D. LAB BLOOD ADD-ON Performing Organization Address City/State/ZIP Code Phon e Number POWERCHART Iron and Total Iron-Binding Capacity (08/11/2015 9:00 AM CDT) Analysis Performed At Patho logist Time Signature Iron 86 35 - 145 POWERCHART MCGDL Percent Saturation 31.7 13.9 - POWERCHART 50.1 Total Iron Binding 271 250 - 400 POWERCHART Capacity UGDL Unbound Iron 185 MCGDL POWERCHART Concentration Specimen (Source) Anatomical Collection Method Collection Time Re ceived Time Location / / Volume Laterality Blood 08/11/2015 9:00 AM CDT Cindy Alarcon M.D. LAB BLOOD ADD-ON Performing Organization Address City/State/ZIP Code Phon e Number POWERCHART documented in this encounter Visit Diagnoses Not on filedocumented in this encounter
--- OUTSIDE RECORDS SUMMARY | 2022-09-22 13:37 | XMS_ITS | Encounter Summary ---
:1955 Author Organization [facility] Address [address] [place] [address] Care Team Providers Name Role Phone Unavailable Primary Care Provider Unavailable Encounter Details Date Type Department Care Team Description 10/27/2015 Hospital Encounter HX [facility] BONE Radha Enriquez M.D. [address] [place] [phone] (Wo rk) Social History Tobacco Use [...] er 09/12/2022 How often do you attend rastafari or voodoo services? Never 05/13/2019 Do you belong to any clubs or organizations such as rastafari N o 09/12/2022 groups, unions, fraternal or [...] or slept in a jail (including now)? Sex Assigned at Date Recorded Female 11/29/2017 6:36 PM CDC ASSOCIATE documented as of this encounter Last Filed Vital Signs Vital Sign Reading Time Taken Comments Blood Pressure - - Pulse - - Temperature - - Respiratory Rate - - Oxygen Saturation - - Inhaled Oxygen Concentration - - Weight - - Height 170 cm (5' 6.93) 10/27/2015 8:12 AM CDC ASSOCIATE Body Mass Index - - documented in [...] Urology Regina Black, DIANN, C.N.P. [address] [place] [phone] (Wo rk) documented as of this encounter Procedures Procedure Name Priority Date/Time Associated Diagnosis Comme nts BMD BONE DENSITY Routine 10/27/2015 8:30 AM Resul ts for this SPINE HIPS CDC ASSOCIATE procedure are i n the results section. documented in this encounter Results BMD BONE DENSITY SPINE HIPS (10/27/2015 8:30 AM CDC ASSOCIATE) Anatomical Region Laterality Modality Hip, Lumbar Spine N/A Radiographic Imaging Specimen (Source) Anatomical Collection Method Collection Time Re ceived Time Location / / Volume Laterality 10/27/2015 8:30 AM CDC ASSOCIATE Impressions 10/27/2015 5:28 PM CDC ASSOCIATE ??Please see scanned signed report in [facility] EMR - Powerchart. This report was administratively signed by proxy from a [employer] tools administrator for system process complet ion purposes. Narrative 10/27/2015 5:28 PM CDC ASSOCIATE Originally Signed By Contributor_system, [facility]_PSCRIBE_SYS EXAM: ??BD Bone Density Screening AGE: ??59 years old. GENDER: ??Female. INDICATION: ??Osteoporosis screening Procedure Note Provider, Pepper Vega - 03/24/2017F ormatting of this note might be different from the original. Originally Signed By Contributor_system, [facility]_PSCRIBE_SYS EXAM: BD Bone Density Screening AGE: [age] years old. GENDER: Female. INDICATION: Osteoporosis screening IMPRESSION: Please see scanned signed re port in [facility] EMR - Powerchart. This report was administratively signed by proxy from a [employer] tools administrator for system process complet ion purposes. Mary Rogel(R), R.T.(R)(M) IMG DXA PROCEDURES documented in this encounter Visit Diagnoses Not on filedocumented in this encounter
--- OUTSIDE RECORDS SUMMARY | 2022-09-22 13:37 | XMS_ITS | Encounter Summary ---
:1955 Author Organization [facility] Address [address] [place] [id number] Care Team Providers Name Role Phone Unavailable Primary Care Provider Unavailable Encounter Details Date Type Department Care Team Description 12/12/2015 Hospital Encounter HX NO MAPPING Provider, Historical Social History Tobacco Use Types [...] How often do you attend yazidi or episcopal services? Never 05/13/2019 Do you [...] at Date Recorded Female 11/29/2017 6:36 PM [employer] documented as of this encounter Medications at [...] Description 11/01/2022 Office Visit Urology Regina Black, [employer]BE[employer]IDING INSTALLER, C.N.P. [address] [phone] (Wo rk) documented as of this encounter Visit Diagnoses Not on filedocumented in this encounter
--- OUTSIDE RECORDS SUMMARY | 2022-09-22 13:37 | XMS_ITS | Encounter Summary ---
:1955 Author Organization [facility] Address [address] [place] [address] Care Team Providers Name Role Phone Unavailable Primary Care Provider Unavailable Encounter Details Date Type Department Care Team Description 08/11/2015 Hospital Encounter HX [facility] Cindy Alarcon M.D. [address] [facility], [facility] [address] [phone] Social History Tobacco Use Types Packs/Day [...] often do you attend oriental orthodox or bahai services? Never 05/13/2019 Do you belong to [...] or slept in a fpc (including now)? 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 [address] [place] [phone] (Wo rk) documented as of this encounter Procedures Procedure Name Priority Date/Time Associated Diagnosis Comme nts LIPID PANEL, S Routine 08/11/2015 9:00 AM Results for this CDT procedure are i n the results section. HEPATIC FUNCTION Routine 08/11/2015 9:00 AM Resul ts for this PANEL, S CDT procedure are i n the results section. AUTOMATED Routine 08/11/2015 9:00 AM Results f or this DIFFERENTIAL, B CDT procedure ar e in the results section. CBC WITH Routine 08/11/2015 9:00 AM Results f or this DIFFERENTIAL, B CDT procedure ar e in the results section. BASIC METABOLIC Routine 08/11/2015 9:00 AM Result s for this PANEL, S/P CDT procedure are i n the results section. documented in this encounter Results Automated Differential (08/11/2015 9:00 AM CDT) athologist Signature Absolute 2.91 1.70 - POWERCHART Neutrophils 7.00 109L Lymphocytes 1.61 0.90 - POWERCHART 2.90 X109L Monocytes 0.38 0.30 - POWERCHART 0.90 X109L Eosinophils 0.18 0.05 - POWERCHART 0.50 X109L Absolute 0.01 0.00 - POWERCHART Basophil 0.30 X109L Specimen Anatomical Collection Method Collection Time Receive d Time (Source) Location / / Volume Laterality Blood 08/11/2015 9:00 AM 5 9:00 CDT AM [facility] Performing Organization Address City/State/ZIP Code Phon e Number POWERCHART CBC with Differential (08/11/2015 9:00 AM CDT) P athologist Signature Leukocytes 5.1 3.4 - 10.5 POWERCHART X109L Erythrocytes 4.55 3.90 - 5.03 POWERCHART [id number] Hemoglobin 14.2 12.0 - 15.5 POWERCHART GDL Hematocrit 42.8 34.9 - 44.5 POWERCHART MCV 94.1 82.0 - 98.0 POWERCHART FL HX RDW 12.6 11.9 - 15.5 POWERCHART Platelet Count 260 150 - 450 POWERCHART X109L Specimen (Source) Anatomical Collection Method Collection Time Re ceived Time Location / / Volume Laterality Blood 08/11/2015 9:00 AM CDT [facility] Performing Organization Address City/[facility] Code Phon e Number POWERCHART (ABNORMAL) Lipid Panel (08/11/2015 9:00 AM CDT) P athologist Signature Calculated LDL 159 (H) <=129 MGDL POWERCHART Comment: 2014 National [...] for FH and FDB is available [facility]: FH/ADH Genetic Reflex Lim el (test ADHP). Acquired (non-genetic) causes of markedly increased LDL cholesterol include cholestatic liver disease due to the presence of LpX. If a genetic form of hypercholesterolemia is suspected, family studies including biochemical testing fo r lipids (total cholesterol,triglycerides, LDL cholesterol and HDL cholesterol) are recommended. ??Please contact the laboratory at or the on-line test catalog at [email or web address] for information about how to order these seymour ts or to speak with a genetic counselor. Further interpretation would require clinical information. Total Cholesterol/HDL Ratio 3.81 PO WERCHART Cholesterol, Total 244 (H) <=199 MGDL POWERCHART Comment: 2014 National Lipid Association recommen dations for Total Cholesterol in adults ages 18 and up: Desirable <200 mg/dL Borderline high 200-239 mg/dL High 240 mg/dL 2014 National Lipid Association recommen dations for Total Cholesterol in children ages 2 to 17. Acceptable <170 mg/dL Borderline High 170-199 mg/dL High 200 mg/dL HX HDL 64 >=50 MGDL POWERCHART Comment: 2014 National Lipid Association recommen dations for HDL-C in adults ages 18 and up: Low <40 mg/dL (Men) Low <50 mg/dL (Women) 2014 National Lipid Association recommen dations for HDL-C in children ages 2 to 17. Low <40 mg/dL Borderline Low 40-45 mg/dL Acceptable >45 mg/dL Triglycerides 106 <=149 MGDL POWERCHART Comment: 2014 National Lipid [...] Laterality Blood 08/11/2015 9:00 AM CDT Cindy Lama Isi.D. LAB BLOOD ADD-ON Performing Organization Address City/State/ZIP Code Phon e Number POWERCHART Hepatic Function Panel (08/11/2015 9:00 AM CDT) Patholo gist Method Time Signature Alkaline 114 46 - 118 POWERCHART Phosphatase, S UNITL Alanine 41 7 - 45 POWERCHART Amniotransferase, LD UNITL Aspartate 26 8 - 43 POWERCHART Aminotransferase UNITL (AST), S Bilirubin, Direct, S <0.20 <=0.30 POWERCHAR T MGDL Bilirubin, Total, S 0.5 0.1 - 1.0 POWERCHART MGDL Total Protein, S 7.2 6.3 - 7.9 POWERCHART GDL Albumin, S 4.6 3.2 - 5.2 POWERCHART GDL HXGlobulin 3 POWERCHART Specimen (Source) Anatomical Collection Method Collection Time Re ceived Time Location / / Volume Laterality Blood 08/11/2015 9:00 AM CDT [facility] LAB BLOOD ADD-ON Performing Organization Address City/State/ZIP Code Phon e Number POWERCHART BMP (Basic Metabolic Panel) (08/11/2015 9:00 AM CDT) P athologist Signature BUN (Blood Urea 11 6 - 21 POWERCHART Nitrogen), S MGDL Chloride, S 100 98 - 107 POWERCHART MMOLL CO2 Total 27 22 - 29 POWERCHART MMOLL Creatinine 0.7 0.6 - 1.1 POWERCHART MGDL Glucose, 91 70 - 99 POWERCHART Fasting, S MGDL Calcium, Total, 9.3 8.0 - 10.3 POWERCHART S MGDL Sodium, S 138 135 - 145 POWERCHART MMOLL Potassium, S 4.6 3.6 - 5.2 POWERCHART MMOLL HXeGFR (MDRD) >60 >=60 POWERCHART [id number] eGFR >60 >=60 POWERCHART Black/ [id number] [place] Specimen (Source) Anatomical Collection Method Collection Time Re ceived Time Location / / Volume Laterality Blood 08/11/2015 9:00 AM CDT Cindy Alarcon M.D. LAB BLOOD ADD-ON Performing Organization Address City/State/ZIP Code Phon e Number POWERCHART documented in this encounter Visit Diagnoses Not on filedocumented in this encounter
--- OUTSIDE RECORDS SUMMARY | 2022-09-22 13:38 | XMS_ITS | Encounter Summary ---
:1955 Author Organization [facility] Address [address] [place] [address] Care Team Providers Name Role Phone Unavailable Primary Care Provider Unavailable Encounter Details Date Type Department Care Team Description 08/29/2014 Hospital Encounter HX [facility] Fortino Yadav M.D. [address] [place] [address] [phone] Social History Tobacco Use Types Packs/Day [...] How often do you attend faith or nondenominational services? 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 documented as of this encounter Progress Notes Fortino Alarcon M.D. - 08/29/2014 2:18 PM CDT [id number] CHIEF COMPLAINT/ REASON FOR VISIT Followup. HISTORY OF PRESENT ILLNESS Alfredo is a 58-year-old female who presents to the clinic today for a one month followup from 07/29/2014. She had an EGD and colonoscopy done on 08/22/2014. She was seen by Dr. Kwok at [facility] on 08/23/2014 for abdominal pain. She was transferred to [facility] on 08/23/2014 and discharged from on 08/26/2014. Abdominal CT showed small cecal perforation. I reviewed all reports. She is feeling better at todays visit. She will follow with RITCHIE Padgett to monitor her hemoglobin.She denies any stomach pain today. She has occasional diarrhea, but she is on antibiotic therapy. There is no nausea or vomiting. We discussed etiologies of her iron deficiency anemia. She had a sleep study done at [place] on 07/29/2014. She has complex obstructive sleep apnea, perDr. Sly Long. She is following with Dr. Long, sleep medicine specialist on 09/20/2014. I gave her information on sleep apnea. She declines an influenza immunization today. I reviewed and updated her medication list. We discussed potential side effects. There are no further concerns at this time. MEDICATIONS Reviewed and updated as per the EMR. ALLERGIES Reviewed and updated as per the EMR. SYSTEMS REVIEW As per the history of present illness. All other systems are reviewed and are negative. PAST MEDICAL/ SURGICAL HISTORY Reviewed and updated as per the EMR. PREVENTIVE SERVICES Reviewed and updated as per the EMR. SOCIAL HISTORY Reviewed and updated as per the EMR. FAMILY HISTORY Reviewed and updated as per the EMR. VITAL SIGNS HEIGHT: 171 cm. WEIGHT: 86 kg. BMI: 29.41 kg/m2. PULSE: 87 /min. RESP: 20 /min. SYSTOLIC: 105 mmHg. DIASTOLIC: 69 mmHg. PHYSICAL EXAMINATION GENERAL: Patient is sitting. No distress. Able to talk without interruption. HEAD: No facial rash, asymmetry or sinus tenderness. EYES: PERRLA. EOMI. She has slight pallor. No icterus or conjunctivitis. ENT: No nasal congestion, discharge or bleeding. There is no ear infection or discharge. No mastoid tenderness. Tongue is moist and midline. No oral lesions. LYMPH NODES: No cervical or supraclavicular lymphadenopathy. THYROID: No thyromegaly. No thyroid thrill or bruit. ABDOMEN: Moves with respiration. Bowel sounds present. Soft. No rebound tenderness, guarding or rigidity. No organomegaly. EXTREMITIES: No clubbing, cyanosis, edema, infection or calf tenderness. IMPRESSION/ REPORT/ PLAN 1. Iron deficiency anemia. We discussed possible etiologies. I reviewed her recent colonoscopy and EGD done at [facility]. She will continue iron supplementation. There was no evidence of bleeding clinically. Will check CBC every two weeks. Advised her to watch for bleeding. 2. Abdominal pain with contained cecal perforation after colonoscopy. Her abdominal pain is resolved. She feels better. There is no acute abdomen clinically. She finishes antibiotic therapy tomorrow. We need to monitor bleeding symptoms and CBC. If she has persistent anemia, she needs further evaluation including capsule endoscopy at [facility]. 2. Obstructive sleep apnea. She has complex obstructive sleep apnea per sleep study on 07/29/2014. She will follow with Dr. Long, sleep medicine specialist on 09/20/2014. 3. Screening mammogram. She is due for a screening mammogram on 08/31/2014. Will schedule for two weeks. 4. Influenza immunization. We discussed immunization. She is not ready at this time. Todays studies: CBC. The patient will return to the clinic in two weeks to check CBC and for screening mammogram. She will return to the clinic in one month for followup with following tests: CBC. This document serves as a record of [...] Electronically Signed By: FORTINO ALARCON MD On: 08/29/2014 03:10 PM Modified by and Electronically Signed by: FORTINO ALARCON MD On: 08/29/2014 03:10 PM Source: [facility] [email or web address] Document Id: [id number] documented in this encounter Miscellaneous Notes Miscellaneous - Fortino Alarcon M.D. - 09/01/2014 8:18 PM CDT Lab from 08/29/2014 From: FORTINO ALARCON MD To: ALFREDO OLIVEROS Sent: 09/01/2014 20:18:47 CDT Subject: Lab from 08/29/2014 Actions: Notify patient of results Your anemia has improved. Please follow up with us as we discussed during your visit or sooner if you have any concerns. If you have questions or concerns, please do not hesitate to call our office. Results: Date Result Name Ind Value Ref Range 08/29/2014 15:00 Hgb (L) 11.5 g/dL (12.0 - 15.5) 08/29/2014 15:00 Hct 36.2 % (34.9 - 44.5) 08/29/2014 15:00 WBC 7.9 x10(9)/L (3.4 - 10.5) 08/29/2014 15:00 RBC 4.21 x10(12)/L (3.90 - 5.03) 08/29/2014 15:00 MCV 86.0 fL (82.0 - 98.0) 08/29/2014 15:00 RDW (H) 15.8 % (11.9 - 15.5) 08/29/2014 15:00 Platelet 362 x10(9)/L (150 - 450) 08/29/2014 15:00 Neutro Absolute 4.90 10(9)/L (1.70 - 7.00) 08/29/2014 15:00 Lymph Absolute 1.85 x10(9)/L (0.90 - 2.90) 08/29/2014 15:00 [place] Absolute 0.86 x10(9)/L (0.30 - 0.90) 08/29/2014 15:00 Eos Absolute 0.26 x10(9)/L (0.05 - 0.50) 08/29/2014 15:00 Baso Absolute 0.05 x10(9)/L (0.00 - 0.30) 08/29/2014 15:00 Differential? Auto Source: [facility] POWERCHART Document Id: [id number] Electronically signed by Har[facility] Computer Hardware Technician [id number] at 04/12/2017 2:19 AM CDT Miscellaneous - Fortino Alarcon M.D. - 08/29/2014 2:56 PM CDT Ambulatory Patient Summary [address] [id number] Visit Information Name: ALFREDO OLIVEROS [facility] Number: [id number] Current Date: 08/29/2014 14:56:45 Physicians Attending Provider: FORTINO ALARCON MD Primary Care Provider: FORITNO ALARCON MD ALFREDO OLIVEROS has been given [...] Indications/Special Instructions/Comments/Notes for Patient Medication Changes/Routing ascorbic acid-carbonyl iron (Vitron-C) 1 Tablet(s), Oral, two times a day This is a CHANGE bifidobacterium-lactobacillus (Probiotic Formula oral capsule) 1 cap, Oral, once a day cholecalciferol (Vitamin D3 1000 intl units oral tablet) 1 Tablet(s), Oral, once a day ciprofloxacin (ciprofloxacin 750 mg oral tablet) 1 Tablet(s), Oral, two times a day clonazePAM (clonazePAM 1 mg oral tablet) 1 Tablet(s), Oral, three times a day escitalopram (Lexapro 10 mg oral tablet) 1 Tablet(s), Oral, once a day metroNIDAZOLE (Flagyl 500 mg oral tablet) 1 Tablet(s), Oral, three times a day omega-3 polyunsaturated fatty acids (Fish Oil oral capsule) 1 cap, Oral, once a day ranitidine (Zantac 75) 75 mg, Oral, two times a day as needed Stop Taking the Following Medications: Medication list as of 08-29-14 14:56 Attention: If you have any medications at [...] Electronically Signed By: FORTINO ALARCON MD Signed On:29-AUG-2014 14:56:31 Your Allergies & Intolerances Substance Reaction Symptoms Category Comments penicillins Hives Drug PENICILLINS sulfa drugs Rash Drug SULFA DRUGS FLUoxetine Hives Drug FLUOXETINE HCL - Prozac Your Problem List Problem Status Onset Comments Anxiety State, Unspecified Active 12/01/2005 02/09/14 Anxiety state, unspecified Rosacea Active 12/01/2005 02/09/14 Rosacea Anemia NOS Active Dizziness Active Fatigue NOS Active Shortness Of Breath (SOB) Active Hernia Hiatal Active Diverticulosis Colon Active Hyponatremia Active Anemia Iron Deficiency NOS Active Apnea Sleep Obstructive (ABRAHAN) Active Your Upcoming Appointments Date Time Location Provider No Appointments found Attention: Contact your local Clinic if further appointment detail needed. [id number] Continuous Positive Airway Pressure (CPAP) Your doctor has prescribed continuous positive airway pressure (CPAP) therapy for you. A CPAP unit is a device that helps you breathe better at night. Using your CPAP device can be a harmon part of your treatment for sleep apnea and other problems. CPAP is safe and highly effective, but it can take time to get used to the mask. Your doctor or medical supplier will give you tips for wearing and caring for your CPAP device. Heres what you need to know about using CPAP. General Guidelines ?? Dont give up! It takes time to get used to wearing the mask at night. ?? Practice wearing your CPAP device during the day, especially whenever you take a nap. ?? Remember, there are several different types of masks. If you cant get used to your mask, ask yourdoctor about trying another style. One of them should work for you. ?? Take your medications exactly as directed. Your doctor may prescribe a nasal spray to help open your nasal passages while you are using your CPAP device. ?? Wear CPAP all night, every night, during all naps, and when you travel. ?? If you lose or gain weight, ask your doctor to adjust the air pressure level of your CPAP. ?? Keep your mask clean. Wash it often. Be sure to rinse the mask and tubing well with water to remove any soap. Let them air-dry thoroughly before using. ?? Make yourself comfortable when sleeping with CPAP. Try using extra pillows. Setting Up ?? Place the CPAP device on a sturdy table near your bed. ?? Plug in the power cord. ?? Connect the tubing to the machine. ?? Arrange the headgear so that the longer straps are at the top. ?? With the Velcro facing out (away from your face), put the four tabs through the top and side slots of the mask. Pull the straps through and press the Velcro back against the strap. Using CPAP ?? Put the mask over your nose and slide the headgear over your head. ?? Adjust the Velcro straps, slowly pulling them until the mask is secure against your face. ?? Connect the tubing to your mask and turn on the switch. ?? Lie down, relax, and breathe through your nose. Follow-Up Make a follow-up appointment as directed by our staff. Getting Used to CPAP CPAP takes some getting used to. If theres anything about CPAP you dont like, chances are theres a solution. Below are a few examples of common problems and possible solutions. If this happens: Try this: Air pressure is uncomfortable Try the devices ramp feature, which starts out at low pressure and slowly raises pressure to your prescribed level. Try a bilevel or autoCPAP device. Discomfort in your nose Try a saline nasal spray. Ask your healthcare provider about trying an antihistamine, decongestant, or prescription nasal spray. Ask for a prescription warm-air humidifier for your device. Adjust the humidification if you already use it. Try a mask that sends air through the jacqueline th instead of the nose. Keep in mind that even if you do nothing, nasal stuffiness may go away within a month. Discomfort in your mouth Try a chin strap to keep the mouth closed while you sleep. Try a mask that covers both nose and mouth. Connect a prescription warm- air humidifier to your device. Adjust the humidification. Discomfort in your eyes, or CPAP works less well than before Adjust your headgear to stop air leaks from around the mask. Replace your mask with one that fits better, is a different size, or fits inside your nostrils. Mask is uncomfortable Adjust fit and tightness of mask and headgear. Put cushions at pressure points. Try a mask of a different style or size. Ask your provider about nasal pillows. If the mask irritates your skin, try a mask of a different material. Air pump is too loud Use a longer hose so the device can go on the floor or under the bed. Ask the device supplier for advice. Try a different CPAP device. Keep in mind that any devices sound is quieter and easier to tune out than snoring. When to Call Your Doctor Call your doctor right away if you have any of the following: Ear pain thatfeels worse when you use the CPAP device Ear infection Chest pain Trouble breathing ?? [id number] Dennis Deleon, [address] [place] [address], [place] [address]. All rights reserved. This information is not intended as a substitute for professional medical care. Always follow your healthcare professional's instructions. Your Goals/Additional instructions: Source: [facility] POWERCHART Document Id: [id number] Miscellaneous - Fortino Alarcon M.D. - 08/29/2014 2:56 PM CDT Ambulatory Discharge Medication List [place] [id number] [facility] [place] [id number] Visit Information Name: ALFREDO OLIVEROS [facility] Number: [id number] Visit Date: 08/29/2014 14:56:43 Attending Provider: FORTINO ALARCON MD Primary Care [...] Indications/Special Instructions/Comments/Notes for Patient Medication Changes/Routing ascorbic acid-carbonyl iron (Vitron-C) 1 Tablet(s), Oral, two times a day This is a CHANGE bifidobacterium-lactobacillus (Probiotic Formula oral capsule) 1 cap, Oral, once a day cholecalciferol (Vitamin D3 1000 intl units oral tablet) 1 Tablet(s), Oral, once a day ciprofloxacin (ciprofloxacin 750 mg oral tablet) 1 Tablet(s), Oral, two times a day clonazePAM (clonazePAM 1 mg oral tablet) 1 Tablet(s), Oral, three times a day escitalopram (Lexapro 10 mg oral tablet) 1 Tablet(s), Oral, once a day metroNIDAZOLE (Flagyl 500 mg oral tablet) 1 Tablet(s), Oral, three times a day omega-3 polyunsaturated fatty acids (Fish Oil oral capsule) 1 cap, Oral, once a day ranitidine (Zantac 75) 75 mg, Oral, two times a day as needed Stop Taking the Following Medications: Medication list as of 08-29-14 14:56 Attention: If you have any medications at [...] Electronically Signed By: FORTINO ALARCON MD Signed On:29-AUG-2014 14:56:31 Additional Information: Source: [facility] [email or web address] Document Id: [id number] Miscellaneous - Eusebio Camacho L.P.N. - 08/29/2014 2:29 PM CDT Ambulatory Vitals Height Weight Ambulatory Vitals Height Weight Entered On: 08/29/2014 14:30 CDT Performed On: 08/29/2014 14:29 CDT by EUSEBIO CAMACHO LPN Vitals/Ht/Wt Temperature Core : 35.9 DegC(Converted to: 96.6 DegF) (LOW) Height : 171 cm(Converted to: 5 ft 7 inch(es), 67 inch(es)) EUSEBIO CAMACHO LPN - 08/29/2014 14:29 CDT [facility] Document Id: [id number] CDT!4 Miscellaneous - Eusebio Camacho L.P.N. - 08/29/2014 2:22 PM CDT Adult Air Conditioning Technician Intake/History Adult Air Conditioning Technician Intake/History Entered On: 08/29/2014 14:24 CDT Performed On: 08/29/2014 14:22 CDT by EUSEBIO CAMACHO LPN Intake Chief Complaint : one month follow-up from 07/29/2014 / post hospital check - [place]'s contained cecal perforation Apical Heart Rate : 87 /min Respiratory Rate : 20 /min Systolic Blood Pressure : 105 mmHg Diastolic Blood Pressure : 69 mmHg NIBP Mean : 81 mmHg BP Location : Right upper extremity Blood Pressure Cuff Size : Large Height : 171 cm(Converted to: 5 ft 7 inch(es), 67 inch(es)) Actual Weight : 86 kg(Converted to: 189 lb 10 oz) Dosing Weight Clinic : 86 kg Clinic BSA : 2.02 Body Mass Index : 29.41 kg/m2 EUSEBIO CAMACHO LPN - 08/29/2014 14:22 CDT General Info Information Given By : Patient Preferred Communication Mode : Verbal, Written Languages : Polish Is Patient Female and 13-50 no hysterectomy : No EUSEBIO CAMACHO LPN - 08/29/2014 14:22 CDT Subjective Pain Symptoms : No EUSEBIO CAMACHO LPN - 08/29/2014 14:22 CDT Dependent Habits Tobacco Use/Currently Using : No Tobacco Use/Last 12 months : No Exposure to Tobacco Smoke : Other: never Smoking Status : Never smoker EUSEBIO CAMACOH LPN - 08/29/2014 14:22 CDT Caffeine Use Grid Caffeine Use : Current Type : Coffee Frequency : Daily Amount : 2 cups EUSEBIO CAMACHO LPN - 08/29/2014 14:22 CDT Recreational Drug Use Grid Drug Use : None EUSEBIO CAMACHO LPN - 08/29/2014 14:22 CDT Source: [employer] Document Id: [id number] CDT!36 Miscellaneous - Fortino Alarcon M.D. - 08/05/2014 12:29 PM CDT Normal Results Letter 05 August 2014 ALFREDO OLIVEROS [address] [place] [id number] Dear ALFREDO OLIVEROS, I am pleased to report that your results from the following diagnostic test(s) are normal. There is no abnormal protein in urine, which is good. Please follow up with us as we discussed during your visit or sooner if you have any concerns. If you have questions or concerns, please do not hesitate to call our office. Sincerely, FORTINO ALARCON [address] [place] [address] Electronic Signature Electronically Signed By: FORTINO ALARCON MD On: 05 August 2014 This document has images extracted. Source: [employer] Document Id: [id number] documented in this encounter Plan of Treatment Upcoming Encounters Date Type Specialty Care Team Description 11/01/2022 Office Visit Urology Regina Black APRN, C.N.P. [address] [place], [place] [phone] (Wo rk) documented as of this encounter Procedures Procedure Name Priority Date/Time Associated Diagnosis Comme nts AUTOMATED Routine 08/29/2014 3:00 PM Results f or this DIFFERENTIAL, B CDT procedure ar e in the results section. CBC WITH Routine 08/29/2014 3:00 PM Results f or this DIFFERENTIAL, B CDT procedure ar e in the results section. documented in this encounter Results Automated Differential (08/29/2014 3:00 PM CDT) P athologist Signature Absolute 4.90 1.70 - POWERCHART Neutrophils 7.00 109L Lymphocytes 1.85 0.90 - POWERCHART 2.90 X109L Monocytes 0.86 0.30 - POWERCHART 0.90 X109L Eosinophils 0.26 0.05 - POWERCHART 0.50 X109L Absolute 0.05 0.00 - POWERCHART Basophil 0.30 X109L Specimen Anatomical Collection Method Collection Time Receive d Time (Source) Location / / Volume Laterality Blood 08/29/2014 3:00 PM 4 3:00 CDT PM CDT Fortino Alarcon M.D. LAB BLOOD ADD-ON Performing Organization Address City/State/ZIP Code Phon e Number POWERCHART (ABNORMAL) CBC with Differential (08/29/2014 3:00 PM CDT) Patholo gist Method Time Signature Leukocytes 7.9 3.4 - 10.5 POWERCHART X109L Erythrocytes 4.21 3.90 - POWERCHART 5.03 [id number] Hemoglobin 11.5 (L) 12.0 - POWERCHART 15.5 GDL Hematocrit 36.2 34.9 - POWERCHART 44.5 MCV 86.0 82.0 - POWERCHART 98.0 FL Platelet Count 362 150 - 450 POWERCHART X109L HX RDW 15.8 (H) 11.9 - POWERCHART 15.5 HXDifferential? Auto POWERCHART Specimen (Source) Anatomical Collection Method Collection Time Re ceived Time Location / / Volume Laterality Blood 08/29/2014 3:00 PM CDT Fortino Alarcon M.D. LAB BLOOD ADD-ON Performing Organization Address City/State/ZIP Code Phon e Number POWERCHART documented in this encounter Visit Diagnoses Not on filedocumented in this encounter
--- OUTSIDE RECORDS SUMMARY | 2022-09-22 13:38 | XMS_ITS | Encounter Summary ---
:1955 Author Organization [facility] Address [address] [place] [address] Care Team Providers Name Role Phone Unavailable Primary Care Provider Unavailable Encounter Details Date Type Department Care Team Description 12/02/2014 Hospital Encounter [facility]X [facility] ANCILLARY Young Dennis M.D. [address] [place] [phone] (Wo rk) Social History Tobacco Use Types [...] How often do you attend presybeterian or buddhist services? 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 [address] [phone] (Wo rk) documented as of this encounter Visit Diagnoses Not on filedocumented in this encounter
--- OUTSIDE RECORDS SUMMARY | 2022-09-22 13:38 | XMS_ITS | Encounter Summary ---
:1955 Author Organization [facility] Address [address] [place] [address] Care Team Providers Name Role Phone Unavailable Primary Care Provider Unavailable Encounter Details Date Type Department Care Team Description 11/25/2014 - Hospital Encounter HX [facility] Leonila Irizarry, 12/02/2014 THERAPY R.N. [address] [place] [phone] Social History Tobacco Use Types Packs/Day Years [...] er 09/12/2022 How often do you attend holiness or sabianism services? 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 [address] [phone] (Wo rk) documented as of this encounter Visit Diagnoses Not on filedocumented in this encounter
--- OUTSIDE RECORDS SUMMARY | 2022-09-22 13:38 | XMS_ITS | Encounter Summary ---
:1955 Author Organization [facility] Address [address] [place] [address] Care Team Providers Name Role Phone Unavailable Primary Care Provider Unavailable Encounter Details Date Type Department Care Team Description 01/10/2015 Hospital Encounter HX [facility] Fortino Yadav M.D. [address] [place] [address] 761 Social History Tobacco Use Types Packs/Day [...] How often do you attend jew or restorationist services? Never 05/13/2019 Do you [...] at Date Recorded Female 11/29/2017 6:36 PM WIRE COILER documented as of this encounter Last Filed Vital Signs Vital Sign Reading Time Taken Comments Blood Pressure 105/55 01/10/2015 1:03 PM WIRE COILER Pulse - - Temperature - - Respiratory Rate 16 01/10/2015 1:03 PM WIRE COILER Oxygen Saturation - - Inhaled Oxygen Concentration - - Weight 84.5 kg (186 lb 4.6 oz) 01/10/2015 1:03 PM WIRE COILER Height 170.5 cm (5' 7.13) 01/10/2015 1:03 PM WIRE COILER Body Mass Index 29.07 01/10/2015 1:03 PM WIRE COILER documented in this encounter Medications at Time of Discharge Medication Sig Dispensed Refills Start Date End Date miscellaneous medical autoSV, heated 0 09/20/2014 supply misc humidifier, mask, headgear, filters and tubing. Length of Need: 99 raNITIdine (for_ZANTAC) 75 Take 75 mg by mouth 0 08/12/2014 05/12/2018 mg tablet once as needed. documented as of this encounter H&P Notes Fortino Alarcon M.D. - 01/10/2015 12:55 PM CST [id number] CHIEF COMPLAINT/ REASON FOR VISIT 1. Annual physical examination. 2. Review chronic medical problems. 3. Renew medication. HISTORY OF PRESENT ILLNESS Alfredo is a 59-year-old female who presents to the clinic today for the above complaints. She has nothad a physical exam with me before. I last saw her on 09/26/2014. She is feeling well today. We discussed adult health preventive services. She needs to eat healthy diet and exercise regularly to maintain healthy body weight and BMI. Today PHQ-9 score was 0. I reviewed and updated patients medical and surgical history, family history, immunizations, allergies, and medications. She had colonoscopy complicated with perforation on 08/22/2014. She had a screening mammogram done on 09/12/2014. It was normal. She needs screening mammogram yearly. She is due for Pap smear and gynecological exam. She denies any vaginal bleeding or discharge. She had history of abnormal Pap smear. Patient was advised to see eye doctor yearly and dentist every six months. She is active. Mack nguyen does yoga and uses treadmill regularly. Patient has iron deficiency anemia. She has been followed by gastroenterology and hematology at [facility]. She would like her ferritin and hemoglobin checked. She didnt tolerate Vitron-C. She was switched to IV iron with Feraheme per Dr. Manuel Zayas, Roofer Apprentice at [facility]. Small bowel capsule endoscopy on 12/03/2014 was essentially normal. At todays visit, she has some intermittent stomach pain, usually after having chocolate or coffee. She has stopped drinking alcohol. I advised her to watch her diet. She is concerned about gluten sensitivity. We discussed symptomsand signs of gluten sensitivity, further evaluation and management. I suggested she try a gluten-free diet for three months. Patient has history of hiatal hernia and acid reflux. She has diverticulosis. She doesnt have symptoms and signs suggestive for diverticulitis. She needs to eat a high fiber diet. She has complex obstructive sleep apnea. She is using BiPAP machine regularly. She is following withDr. Long, sleep medicine specialist. She feels much better since she's been using BiPAP. She is moreactive and less fatigue. She has anxiety. She has stopped taking Lexapro after starting using BiPAP machine. She only uses Clonazepam primarily for sleep. There are no side effects from medication. Patient wanted me to look at a lump on her back. She has a benign actinic keratosis. She mentioned that she has had these in the past and has seen a film tests checker. She will follow with her film tests checker. I reviewed and updated her medication list. We discussed potential side effects. There are no further concerns at this time. MEDICATIONS Probiotic Formula 1 capsule by mouth daily. Vitamin D3 1,000 units 1 tablet by mouth daily. Clonazepam 1 mg 0.5 tablets by mouth three times a day. multivitamin 1 capsule by mouth daily. Fish Oil 1 capsule by mouth daily. Zantac 75 mg by mouth two times daily as needed. ALLERGIES Fluoxetine. Penicillin. Sulfa drug. Vitron-C. SYSTEMS REVIEW As per the history of present illness. All other systems are reviewed and are negative. PAST MEDICAL/ SURGICAL HISTORY Thyroid nodule, right. Hyponatremia. Hyperkalemia. Iron deficiency anemia. Anemia. Anxiety. Obstructive sleep apnea. Hiatal hernia. Diverticulosis of colon. Rosacea. Dizziness. Fatigue. Shortness of breath. Family history of thyroid cancer. Status post removal of left breast fibroadenoma. Status post tonsillectomy. Status post D & C. History of bilateral strabismus surgery 1985. Status post colonoscopy 09/27/2013 and 08/22/2014. Status post capsule endoscopy 12/03/2014. PREVENTIVE SERVICES Colonoscopy: 08/22/2014. Pneumovax: N/A. Tetanus booster: 06/22/2013. Influenza: 09/26/2014. Zostavax: N/A. SOCIAL HISTORY She is not . She denies tobacco or drug abuse. She drinks caffeine daily. She used to drink alcohol socially. FAMILY HISTORY Bladder cancer in brother. Emphysema in mother. Hypertension in mother. Coronary artery disease and myocardial infarction in father. Stroke in father. Gluten- sensitivity in sister. Her niece had thyroid cancer. VITAL SIGNS HEIGHT: 170.5 cm. WEIGHT: 84.5 kg. BMI: 29.07 kg/m2. PULSE: 72 /min. RESP: 16 /min. SYSTOLIC: 105 mmHg. DIASTOLIC: 55 mmHg. PHYSICAL EXAMINATION GENERAL: Patient is sitting. No distress. Able to talk without interruption. SKIN: No rash, bruise or nodules. She has benign actinic keratosis on her right lower back. HEAD: No facial rash, asymmetry, or sinus tenderness. EYES: PERRLA. EOMI. No pallor, icterus, or conjunctivitis. She has mild cataract. ENT: No nasal congestion, discharge or bleeding. There is no ear infection or discharge. No mastoid tenderness. Tongue is moist and midline. No oral lesions. LYMPH NODES: No cervical, supraclavicular, axillary, inguinal, or femoral lymphadenopathy. THYROID: No thyromegaly. No thyroid thrill or bruit. Right lobe of thyroid is easily palpable, possible thyroid nodule. BREASTS: No nipple discharge or retraction. No palpable breast mass or tenderness. PERIPHERAL VESSELS: Good radial, femoral, and pedal pulses. HEART: No carotid bruit. No JVD. Regular rhythm. There is no S3, gallop, murmur, or thrill. LUNGS: Normal respiratory effort. Clear to auscultation. Normal percussion. ABDOMEN: Moves with respiration. Bowel sounds present. Soft. No rebound tenderness, guarding, or rigidity. No organomegaly. SPINE: No scoliosis or kyphosis. No spinous tenderness or mass. JOINTS: No joint swelling or deformity. No decreased range of motion. EXTREMITIES: No clubbing, cyanosis, edema, infection, or calf tenderness. GAIT: No abnormal gait. MENTAL: Alert and oriented x 3. Normal mood and affect. NEURO: Grossly nonfocal. IMPRESSION/ REPORT/ PLAN 1. Annual physical examination. We discussed adult health preventive services. She needs to eat healthy diet and exercise regularly to maintain healthy body weight and BMI. Today BMI is 29.07 kg/m2. Today PHQ-9 is 0. Her immunization record is up to date. Advised to see eye doctor once a year and dentist every six months. She needs health maintenance every year. 2. Thyroid nodule, right lobe. She doesnt have symptoms. We will check TSH and thyroid ultrasound today. Thyroid ultrasound showed right thyroid nodules, the largest of these has microcalcifications, consider thyroid biopsy for tissue diagnosis. Will refer her to see Endocrinology. 3. Hyperkalemia. She is asymptomatic. We need to watch electrolytes and renal function because of high blood pressure. She will continue cardiovascular risk factor modifications. BMP was done today. 4. Iron deficiency anemia. She feels better. There was no evidence of bleeding. It should be noted that she didnt tolerate Vitron-C. BMP, CBC, and Ferritin were ordered today. She is following with sanipractic physician and rattling machine tender at [facility] in January 2015. 5. Anxiety. It is stable. Today PHQ-9 score is 0. She was advised to continue current medication. 6. Obstructive sleep apnea. She feels better. She will continue BiPAP use. She will follow with Dr. Long, sleep medicine specialist as needed. 7. Colon diverticulosis. She is asymptomatic. She needs to make sure fiber intake is adequate. 8. Actinic keratosis on lower back. It is benign. There is no evidence of bleeding or infection. Shewill follow with her film tests checker. 9. Epigastric pain. There is no acute abdomen clinically. I advised her to watch her diet closely. After discussion, she agreed to try a gluten-free diet for 3 months. 10. Advanced directive. She was given information. 11. Renew medications. The following medications were renewed: Clonazepam. Todays studies: BMP, CBC, Ferritin, TSH, and Thyroid ultrasound. She will be notified with results. The patient will return to the clinic in 1 year for annual physical exam, review medical problems, and renew medication. This document serves as a record of services personally performed by Dr. Fortino Alarcon. It was created on their behalf by Denny Newman, a trained medical diagnostic radiographer. The creation of this record is based on the scribe's personal observations and the provider's statements to them. This document has been checked and approved by the attending provider. Fortino Alarcon M.D./mirian Electronically Signed By: FORTINO ALARCON MD On: 01/16/2015 10:05 PM Modified by and Electronically Signed by: FORTINO ALARCON MD On: 01/16/2015 10:05 PM Source: [facility] [email or web address] Document Id: [id number] COILER documented in this encounter Miscellaneous Notes Miscellaneous - Fortino Alarcon M.D. - 01/14/2015 10:29 AM CST Lab from 01/10/2015 From: FORTINO ALARCON MD To: ALFREDO OLIVEROS Cc: KEDAR Alarcon Nurse; Sent: 01/14/2015 10:29:47 WIRE COILER Subject: Lab from 01/10/2015 Actions: Notify patient of results Your thyroid test(TSH) is normal. Tests for electrolytes and kidney function are normal. Random glucose level is OK. Blood count is normal, no anemia. Ferritin level has improved from less than 9 on 07/08/2014. Please follow up with us as we discussed during your visit or sooner if you have any concerns. If you have questions or concerns, please do not hesitate to call our office. Thank you for the note. Results: Date Result Name Ind Value Ref Range 01/10/2015 16:04 TSH 2.62 mIU/mL (0.27 - 4.20) 01/10/2015 14:06 Sodium Lvl 139 mmol/L (135 - 145) 01/10/2015 14:06 Potassium Lvl 4.2 mmol/L (3.5 - 4.8) 01/10/2015 14:06 Chloride 101 mmol/L (100 - 108) 01/10/2015 14:06 CO2 28 mmol/L (22 - 30) 01/10/2015 14:06 Glucose Lvl 128 01/10/2015 14:06 Creatinine (L) 0.6 mg/dL (0.7 - 1.2) 01/10/2015 14:06 EGFR (MDRD) >60 mL/min 01/10/2015 14:06 EGFR (MDRD) >60 mL/min/1.73m2 (>=60 - ) 01/10/2015 14:06 BUN 15 mg/dL (6 - 20) 01/10/2015 14:06 Calcium Lvl 9.9 mg/dL (8.5 - 10.5) 01/10/2015 14:06 Ferritin Lvl 277 ng/mL (11 - 307) 01/10/2015 14:06 Hgb 13.8 g/dL (12.0 - 15.5) 01/10/2015 14:06 Hct 42.5 % (34.9 - 44.5) 01/10/2015 14:06 WBC 7.1 x10(9)/L (3.4 - 10.5) 01/10/2015 14:06 RBC 4.63 x10(12)/L (3.90 - 5.03) 01/10/2015 14:06 MCV 91.8 fL (82.0 - 98.0) 01/10/2015 14:06 RDW 15.1 % (11.9 - 15.5) 01/10/2015 14:06 Platelet 252 x10(9)/L (150 - 450) 01/10/2015 14:06 Neutro Absolute 4.30 10(9)/L (1.70 - 7.00) 01/10/2015 14:06 Lymph Absolute 1.92 x10(9)/L (0.90 - 2.90) 01/10/2015 14:06 Schleicher Absolute 0.56 x10(9)/L (0.30 - 0.90) 01/10/2015 14:06 Eos Absolute 0.27 x10(9)/L (0.05 - 0.50) 01/10/2015 14:06 Baso Absolute 0.02 x10(9)/L (0.00 - 0.30) 01/10/2015 14:06 Differential? Auto Source: [facility] POWERCHART Document Id: [id number] Electronically signed by Conversion, [facility] Superintendent Meters [id number] at 04/11/2017 2:18 AM CDT Miscellaneous - Fortino Alarcon M.D. - 01/14/2015 10:28 AM CST Custom Result Letter 14 January 2015 ALFREDO OLIVEROS [facility] [id number] Dear ALFREDO OLIVEROS, Your thyroid test(TSH) is normal. Tests for electrolytes and kidney function are normal. Random glucose level is OK. Blood count is normal, no anemia. Ferritin level has improved from less than 9 on 07/08/2014. Please follow up with us as we discussed during your visit or sooner if you have any concerns. If you have questions or concerns, please do not hesitate to call our office. Result Name Current Result Normal Range TSH (mIU/mL) 2.62 01/10/2015 0.27 - 4.20 Sodium Lvl (mmol/L) 139 01/10/2015 135 - 145 Potassium Lvl (mmol/L) 4.2 01/10/2015 3.5 - 4.8 Chloride (mmol/L) 101 01/10/2015 100 - 108 CO2 (mmol/L) 28 01/10/2015 22 - 30 Glucose Lvl 128 01/10/2015 Creatinine (mg/dL) (L) 0.6 01/10/2015 0.7 - 1.2 EGFR (MDRD) (mL/min) >60 01/10/2015 EGFR (MDRD) (mL/min/1.73m2) >60 01/10/2015 >=60 - BUN (mg/dL) 15 01/10/2015 6 - 20 Calcium Lvl (mg/dL) 9.9 01/10/2015 8.5 - 10.5 Ferritin Lvl (ng/mL) 277 01/10/2015 11 - 307 Hgb (g/dL) 13.8 01/10/2015 12.0 - 15.5 Hct (%) 42.5 01/10/2015 34.9 - 44.5 WBC (x10(9)/L) 7.1 01/10/2015 3.4 - 10.5 RBC (x10(12)/L) 4.63 01/10/2015 3.90 - 5.03 MCV (fL) 91.8 01/10/2015 82.0 - 98.0 RDW (%) 15.1 01/10/2015 11.9 - 15.5 Platelet (x10(9)/L) 252 01/10/2015 150 - 450 Neutro Absolute (10(9)/L) 4.30 01/10/2015 1.70 - 7.00 Lymph Absolute (x10(9)/L) 1.92 01/10/2015 0.90 - 2.90 x63Iuoz Absolute (x10(9)/L) 0.56 01/10/2015 0.30 - 0.90 Eos Absolute (x10(9)/L) 0.27 01/10/2015 0.05 - 0.50 Baso Absolute (x10(9)/L) 0.02 01/10/2015 0.00 - 0.30 Differential? Auto 01/10/2015 Sincerely, FORTINO ALARCON [address] [employer] [employer] [place] [address] Electronic Signature Electronically Signed By: FORTINO ALARCON MD On: 14 January 2015 This document has images extracted. Source: [facility] POWERCHART Document Id: [id number] Electronically signed by Conversion, [facility] Superintendent Meters [id number] at 04/11/2017 2:18 AM CDT Miscellaneous - Fortino Alarcon M.D. - 01/10/2015 1:47 PM CST Ambulatory Patient Summary [address] [facility] [place] [id number] Visit Information Name: ALFREDO OLIVEROS [facility] Number: [phone] Current Date: 01/10/2015 13:47:14 Physicians Attending Provider: FORTINO ALARCON MD Primary [...] 1 Tablet(s), Oral, three times a day Routed to [employer] multivitamin, ( 1 oral capsule) 1 cap, Oral, once a day One by [employer] omega-3 polyunsaturated fatty acids (Fish Oil oral capsule) 1 cap, Oral, once a day ranitidine (Zantac 75) 75 mg, Oral, two times a day as needed Stop Taking the Following Medications: ascorbic acid-carbonyl iron (Vitron-C) ciprofloxacin (ciprofloxacin 750 mg oral tablet) escitalopram (Lexapro 10 mg oral tablet) metroNIDAZOLE (Flagyl 500 mg oral tablet) Medication list as of 01-10-15 13:47 Attention: If you have any medications at [...] Electronically Signed By: FORTINO ALARCON MD Signed On:10-JAN-2015 13:46:54 Your Allergies & Intolerances Substance Reaction Symptoms Category Comments penicillins Hives Drug PENICILLINS sulfa drugs Rash Drug SULFA DRUGS Vitron-C Drug FLUoxetine Hives Drug FLUOXETINE HCL - Prozac Your Problem List Problem Status Onset Comments Anxiety State, Unspecified Active 12/01/2005 02/09/14 Anxiety state, unspecified Rosacea Active 12/01/2005 02/09/14 Rosacea Hernia Hiatal Active Diverticulosis Colon Active Apnea Sleep Obstructive (ABRAHAN) Active Hyperkalemia Active Your Upcoming Appointments Date Time Location Provider No Appointments found Attention: Contact your local Clinic if further appointment detail needed. Your Goals/Additional instructions: Source: [facility] POWERCHART Document Id: [id number] COILER Miscellaneous - Fortino Alarcon M.D. - 01/10/2015 1:47 PM CST Ambulatory Discharge Medication List [address] [phone] Visit Information Name: ALFREDO OLIVEROS [facility] Number: [phone] Visit Date: 01/10/2015 13:47:13 Attending Provider: FORTINO ALARCON MD Primary Care [...] 1 Tablet(s), Oral, three times a day Routed to [employer] multivitamin, ( 1 oral capsule) 1 cap, Oral, once a day One by [employer] omega-3 polyunsaturated fatty acids (Fish Oil oral capsule) 1 cap, Oral, once a day ranitidine (Zantac 75) 75 mg, Oral, two times a day as needed Stop Taking the Following Medications: ascorbic acid-carbonyl iron (Vitron-C) ciprofloxacin (ciprofloxacin 750 mg oral tablet) escitalopram (Lexapro 10 mg oral tablet) metroNIDAZOLE (Flagyl 500 mg oral tablet) Medication list as of 01-10-15 13:47 Attention: If you have any medications at [...] Electronically Signed By: FORTINO ALARCON MD Signed On:10-JAN-2015 13:46:54 Additional Information: Source: [facility] POWERCHART Document Id: [id number] COILER Alba - Margarita Camacho, LJuanchoP.N. - 01/10/2015 1:06 PM CST PHQ-9 PHQ-9 Entered On: 01/10/2015 13:06 WIRE COILER Performed On: 01/10/2015 13:06 WIRE COILER by MARGARITA CAMACHO LPN PHQ-9 Little interest or pleasure in doing things : Not at all Feeling down, depressed, or hopeless : Not at all Trouble falling or staying asleep, or sleeping too much : Not at all Feeling tired or having little energy : Not at all Poor appetite or overeating : Not at all Feeling bad about yourself or that you are a failure : Not at all Trouble concentrating on things : Not at all Moving or speaking slowly; restless or fidgety : Not at all Thoughts that you would be better off /hurting self : Not at all PHQ-9 Calculated Score : 0 Problems make work, home, or dealing with others : Not difficult at all MARGARITA CAMACHO LPN - 01/10/2015 13:06 WIRE COILER Source: [facility] PresseT[employer].comCHART Document Id: [id number] WIRE COILER!13 COILER [place]ba - Margarita Camacho LJuanchoP.N. - 01/10/2015 1:03 PM CST Adult Invoice Machine Operator Intake/History Adult Invoice Machine Operator Intake/History Entered On: 01/10/2015 13:06 WIRE COILER Performed On: 01/10/2015 13:03 WIRE COILER by MARGARITA CAMACHO LPN Intake Chief Complaint : annual physcial Apical Heart Rate : 72 /min Respiratory Rate : 16 /min Systolic Blood Pressure : 105 mmHg Diastolic Blood Pressure : 55 mmHg NIBP Mean : 72 mmHg BP Location : Left upper extremity Blood Pressure Cuff Size : Large Height : 170.5 cm(Converted to: 5 ft 7 inch(es), 67 inch(es)) Actual Weight : 84.5 kg(Converted to: 186 lb 5 oz) Weight Source : Standing scale Dosing Weight Clinic : 84.5 kg Clinic BSA : 2 Body Mass Index : 29.07 kg/m2 DOUGGHASSANLLOYD MILTON LPN - 01/10/2015 13:03 WIRE COILER General Info Information Given By : Patient Preferred Communication Mode : Verbal, Written Languages : Maltese Is Patient Female and 13-50 no hysterectomy : No RANDALJUANISMARGARITA KARINE KELLY - 01/10/2015 13:03 WIRE COILER Subjective Pain Symptoms : Chika CAMACHO MARGARITA KARINE KELLY - 01/10/2015 13:03 WIRE COILER Dependent Habits Tobacco Use/Currently Using : No Tobacco Use/Last 12 months : No Exposure to Tobacco Smoke : Other: never Smoking Status : Never smoker GHASSAN CAMACHOIN KARINE KELLY - 01/10/2015 13:03 WIRE COILER Caffeine Use Grid Caffeine Use : Current Type : Coffee Frequency : Daily Amount : 2 cups DOUG MARGARITA KARINE KELLY - 01/10/2015 13:03 WIRE COILER Recreational Drug Use Grid Drug Use : None GHASSAN CAMACHOIN KARINE KELLY - 01/10/2015 13:03 WIRE COILER ID Screen Travel Within Last 21 Days : No Contact with someone with Ebola : Chika MARGARITA CAMACHO LPN - 01/10/2015 13:03 WIRE COILER [facility] Document Id: [id number] WIRE COILER!40 COILER Miscellaneous - Fortino Alarcon M.D. - 08/10/2013 12:00 AM CDT Quality Measures Quality Measures Entered On: 01/10/2015 13:56 WIRE COILER Performed On: 08/10/2013 0:00 CDT by FORTINO ALARCON MD Labs Outside Lab Cholesterol : 202 mg/dL Outside Lab HDL : 65 mg/dL Outside Lab LDL : 126 mg/dL Outside Lab Triglycerides : 56 mg/dL Outside Lab Report Location : Scanned into EMR FORTINO ALARCON MD - 01/10/2015 13:55 WIRE COILER Source: [facility] POWERCHART Document Id: [id number] WIRE COILER!7 COILER documented in this encounter Plan of Treatment Upcoming Encounters Date Type Specialty Care Team Description 11/01/2022 Office Visit Urology Regina Black APRN, C.N.P. [address] [phone] (Wo rk) documented as of this encounter Procedures Procedure Name Priority Date/Time Associated Diagnosis Comme nts THYROID-STIMULATING Routine 01/10/2015 4:04 PM Re sults for this HORMONE-SENSITIVE WIRE COILER procedure are in (S-TSH) the results section. AUTOMATED Routine 01/10/2015 2:06 PM Results f or this DIFFERENTIAL, B WIRE COILER procedure ar e in the results section. CBC WITH Routine 01/10/2015 2:06 PM Results f or this DIFFERENTIAL, B WIRE COILER procedure ar e in the results section. FERRITIN, S Routine 01/10/2015 2:06 PM Results f or this WIRE COILER procedure are i n the results section. BASIC METABOLIC Routine 01/10/2015 2:06 PM Result s for this PANEL, S/P WIRE COILER procedure are i n the results section. documented in this encounter Results Thyroid-Stimulating Hormone-Sensitive (s-TSH) (01/10/2015 4:04 PM WIRE COILER) athologist Signature TSH 2.62 0.27 - 4.20 POWERCHART (Thyrotropin) MIUML Specimen (Source) Anatomical Collection Method Collection Time Re ceived Time Location / / Volume Laterality Blood 01/10/2015 4:04 PM WIRE COILER Fortino Alarcon M.D. LAB BLOOD ADD-ON Performing Organization Address City/State/ZIP Code Phon e Number POWERCHART Automated Differential (01/10/2015 2:06 PM WIRE COILER) athologist Signature Absolute 4.30 1.70 - POWERCHART Neutrophils 7.00 109L Lymphocytes 1.92 0.90 - POWERCHART 2.90 X109L Monocytes 0.56 0.30 - POWERCHART 0.90 X109L Eosinophils 0.27 0.05 - POWERCHART 0.50 X109L Absolute 0.02 0.00 - POWERCHART Basophil 0.30 X109L Specimen Anatomical Collection Method Collection Time Receive d Time (Source) Location / / Volume Laterality Blood 01/10/2015 2:06 PM 5 2:06 WIRE COILER PM WIRE COILER Fortino Alarcon M.D. LAB BLOOD ADD-ON Performing Organization Address City/State/ZIP Code Phon e Number POWERCHART CBC with Differential (01/10/2015 2:06 PM WIRE COILER) athologist Signature Leukocytes 7.1 3.4 - 10.5 POWERCHART X109L Erythrocytes 4.63 3.90 - POWERCHART 5.03 [id number] Hemoglobin 13.8 12.0 - POWERCHART 15.5 GDL Hematocrit 42.5 34.9 - POWERCHART 44.5 MCV 91.8 82.0 - POWERCHART 98.0 FL Platelet Count 252 150 - 450 POWERCHART X109L HX RDW 15.1 11.9 - POWERCHART 15.5 HXDifferential? Auto POWERCHART Specimen (Source) Anatomical Collection Method Collection Time Re ceived Time Location / / Volume Laterality Blood 01/10/2015 2:06 PM WIRE COILER Fortino Alarcon M.D. LAB BLOOD ADD-ON Performing Organization Address City/[facility]/ZIP Code Phon e Number POWERCHART Ferritin (01/10/2015 2:06 PM WIRE COILER) athologist Signature Ferritin, S 277 11 - 307 POWERCHART NGML Specimen (Source) Anatomical Collection Method Collection Time Re ceived Time Location / / Volume Laterality Blood 01/10/2015 2:06 PM WIRE COILER Fortino Alarcon M.D. LAB BLOOD ADD-ON Performing Organization Address City/State/ZIP Code Phon e Number POWERCHART (ABNORMAL) BMP (Basic Metabolic Panel) (01/10/2015 2:06 PM WIRE COILER) athologist Signature BUN (Blood Urea 15 6 - 20 POWERCHART Nitrogen), S MGDL Creatinine 0.6 (L) 0.7 - 1.2 POWERCHART MGDL Glucose 128 POWERCHART Potassium, S 4.2 3.5 - 4.8 POWERCHART MMOLL Sodium, S 139 135 - 145 POWERCHART MMOLL Chloride, S 101 100 - 108 POWERCHART MMOLL CO2 Total 28 22 - 30 POWERCHART MMOLL Calcium, Total, 9.9 8.5 - 10.5 POWERCHART S MGDL HXeGFR (MDRD) >60 MLMIN POWERCHART eGFR >60 >=60 POWERCHART Black/ [id number] Greek Specimen (Source) Anatomical Collection Method Collection Time Re ceived Time Location / / Volume Laterality Blood 01/10/2015 2:06 PM WIRE COILER Fortino Alarcon M.D. LAB BLOOD ADD-ON Performing Organization Address City/State/ZIP Code Phon e Number POWERCHART documented in this encounter Visit Diagnoses Not on filedocumented in this encounter
--- OUTSIDE RECORDS SUMMARY | 2022-09-22 13:38 | XMS_ITS | Encounter Summary ---
:1955 Author Organization [facility] Address [address] [place] [address] Care Team Providers Name Role Phone Unavailable Primary Care Provider Unavailable Encounter Details Date Type Department Care Team Description 09/26/2014 Hospital Encounter HX [facility] Fortino Yadav M.D. [address] [place] [address] 761 Social History Tobacco Use Types Packs/Day [...] er 09/12/2022 How often do you attend pentecostal or anabaptist services? Never 05/13/2019 Do you belong to any clubs or organizations such as pentecostal N o 09/12/2022 groups, unions, fraternal or [...] at Date Recorded Female 11/29/2017 6:36 PM FARM PRODUCTS SHIPPER documented as of this encounter Last Filed Vital Signs Vital Sign Reading Time Taken Comments Blood Pressure 102/57 09/26/2014 11:13 AM FARM PRODUCTS SHIPPER Pulse - - Temperature - - Respiratory Rate 16 09/26/2014 11:13 AM FARM PRODUCTS SHIPPER Oxygen Saturation - - Inhaled Oxygen Concentration - - Weight 85.5 kg (188 lb 7.9 oz) 09/26/2014 11:13 AM FARM PRODUCTS SHIPPER Height 171 cm (5' 7.32) 09/26/2014 11:13 AM FARM PRODUCTS SHIPPER Body Mass Index 29.24 09/26/2014 11:13 AM FARM PRODUCTS SHIPPER documented in this encounter Medications at Time of Discharge Medication Sig Dispensed Refills Start Date End Date miscellaneous medical autoSV, heated 0 09/20/2014 supply misc humidifier, mask, headgear, filters and tubing. Length of Need: 99 raNITIdine (for_ZANTAC) 75 Take 75 mg by mouth 0 08/12/2014 05/12/2018 mg tablet once as needed. documented as of this encounter Progress Notes Fortino Alarcon M.D. - 09/26/2014 10:24 AM CST [id number] CHIEF COMPLAINT/ REASON FOR VISIT 1. Followup on anemia. 2. Discuss test results. HISTORY OF PRESENT ILLNESS Emelyn is a 58-year-old female who presents to the clinic today for a one month followup from 08/29/2014. We discussed her test results from today, which were remarkable for hemoglobin 11.0 and hematocrit 34.6. She is feeling better today. She still has anemia. She doesnt notice any bleeding symptoms. She should take iron pill twice a day regularly. She isnt as tired today. She has complex obstructive sleep apnea. She started her CPAP machine. She is going to get a BiPAP machine. She is following with Dr. Long, sleep medicine specialist. She declines influenza immunization today. She needs to wash her hands regularly. I reviewed and updated her medication [...] EMR. VITAL SIGNS HEIGHT: 171 cm. WEIGHT: 85.5 kg. BMI: 29.24 kg/m2. PULSE: 75 /min. RESP: 16 /min. SYSTOLIC: 102 mmHg. DIASTOLIC: 57 mmHg. PHYSICAL EXAMINATION GENERAL: Patient is sitting. No distress. Able to talk without interruption. HEAD: No facial rash, asymmetry or sinus tenderness. IMPRESSION/ REPORT/ PLAN 1. Iron deficiency anemia. She feels better. She should take iron supplementation regularly. She cantake Vitron-C 2 tablets at once, daily. There was no evidence of bleeding clinically. We recheck CBCin one month with iron studies. I advised her to watch for bleeding. 2. Obstructive sleep apnea. She has complex obstructive sleep apnea per sleep study on 07/29/2014. It is relatively controlled. She notices sometimes air went in to her stomach. She thought it may be due to the pressure. She will follow with Dr. Long, sleep medicine specialist. 3. Health maintenance. She is due for her annual physical exam. She agreed to schedule. 4. Influenza immunization. She declines influenza immunization today. 5. Discussed test results. I reviewed test results from today. All questions were answered. The patient will return to the clinic in one month for following tests: BMP, CBC, Ferritin, Iron andTIBC. The patient will return to the clinic in 3 months for annual physical exam, review medical problems and renew medications.. This document serves as a record of services personally performed by Dr. Fortino Alarcon. It was created on their behalf by Denny Newman, a trained medical billing representative. The creation of this record is based on the scribe's personal observations and the provider's statements to them. This document has been checked and approved by the attending provider. Fortino Alarcon M.D./mirian Electronically Signed By: FORTINO ALARCON MD On: 09/26/2014 12:54 PM Modified by and Electronically Signed by: FORTINO ALARCON MD On: 09/26/2014 12:54 PM Source: [facility] MHSDOLBEYNONRADSYS Document Id: [id number] PRODUCTS SHIPPER documented in this encounter Miscellaneous Notes Miscellaneous - Fortino Alarcon M.D. - 09/26/2014 11:31 AM CST Meaningful Use Influenza Exclusion Meaningful Use Influenza Exclusion Entered On: 09/26/2014 11:31 FARM PRODUCTS SHIPPER Performed On: 09/26/2014 11:31 FARM PRODUCTS SHIPPER by FORTINO ALARCON MD Influenza Vaccine Exclusion Influenza Vaccine Exclusion : Patient declined FORTINO ALARCON MD - 09/26/2014 11:31 FARM PRODUCTS SHIPPER Source: [facility] POWERCHART Document Id: [id number] FARM PRODUCTS SHIPPER!3 PRODUCTS SHIPPER Miscellaneous - Margarita Camacho L.P.N. - 09/26/2014 11:13 AM CST Adult Grinder Operator Intake/History Adult Grinder Operator Intake/History Entered On: 09/26/2014 11:15 FARM PRODUCTS SHIPPER Performed On: 09/26/2014 11:13 FARM PRODUCTS SHIPPER by MARGARITA CAMACHO LPN Intake Chief Complaint : one month follow-up from 08/29/2014 Apical Heart Rate : 75 /min Respiratory Rate : 16 /min Systolic Blood Pressure : 102 mmHg Diastolic Blood Pressure : 57 mmHg NIBP Mean : 72 mmHg BP Location : Left upper extremity Blood Pressure Cuff Size : Large Height : 171 cm(Converted to: 5 ft 7 inch(es), 67 inch(es)) Actual Weight : 85.5 kg(Converted to: 188 lb 8 oz) Weight Source : Standing scale Dosing Weight Clinic : 85.5 kg Clinic BSA : 2.02 Body Mass Index : 29.24 kg/m2 MARGARITA CAMACHO LPN - 09/26/2014 11:13 FARM PRODUCTS SHIPPER General Info Information Given By : Patient Preferred Communication Mode : Verbal, Written Languages : Tajik Is Patient Female and 13-50 no hysterectomy : No MARGARITA CAMACHO LPN - 09/26/2014 11:13 FARM PRODUCTS SHIPPER Subjective Pain Symptoms : No MARGARITA CAMACHO [facility] - 09/26/2014 11:13 FARM PRODUCTS SHIPPER Dependent Habits Tobacco Use/Currently Using : No Tobacco Use/Last 12 months : No Exposure to Tobacco Smoke : Other: never Smoking Status : Never smoker MARGARITA CAMACHO [facility] - 09/26/2014 11:13 FARM PRODUCTS SHIPPER Caffeine Use Grid Caffeine Use : Current Type : Coffee Frequency : Daily Amount : 2 cups MARGARITA CAMACHO HEARING AID TECHNICIAN - 09/26/2014 11:13 FARM PRODUCTS SHIPPER Recreational Drug Use Grid Drug Use : None MARGARITA CAMACHO [facility] - 09/26/2014 11:13 FARM PRODUCTS SHIPPER ID Screen Travel Within Last 21 Days : MARGARITA Collazo HEARING AID TECHNICIAN - 09/26/2014 11:13 FARM PRODUCTS SHIPPER Source: [employer]! Document Id: [id number] FARM PRODUCTS SHIPPER!39 PRODUCTS SHIPPER documented in this encounter Plan of Treatment Upcoming Encounters Date Type Specialty Care Team Description 11/01/2022 Office Visit Urology Regina Black APRN, C.N.P. [address] [phone] (Wo rk) documented as of this encounter Visit Diagnoses Not on filedocumented in this encounter
--- OUTSIDE RECORDS SUMMARY | 2022-09-22 13:38 | XMS_ITS | Encounter Summary ---
:1955 Author Organization [facility] Address [address] [place] [address] Care Team Providers Name Role Phone Unavailable Primary Care Provider Unavailable Encounter Details Date Type Department Care Team Description 01/10/2015 Hospital Encounter [facility]X [facility] Fortino Jeronimo M.D. [address] [place] [address] 761 Social History Tobacco Use Types Packs/Day [...] er 09/12/2022 How often do you attend mosque or episcopal services? Never 05/13/2019 Do you belong to any clubs or organizations such as mosque N o 09/12/2022 groups, unions, fraternal or [...] at Date Recorded Female 11/29/2017 6:36 PM RAISE DRILLER documented as of this encounter Last Filed Vital Signs Vital Sign Reading Time Taken Comments Blood Pressure - - Pulse - - Temperature - - Respiratory Rate - - Oxygen Saturation - - Inhaled Oxygen Concentration - - Weight - - Height 170 cm (5' 6.93) 01/10/2015 2:11 PM RAISE DRILLER Body Mass Index - - documented in [...] Notes Miscellaneous - Fortino Alarcon M.D. - 01/10/2015 4:26 PM CST Results Notification Document Contains Addenda Addendum by EUSEBIO CAMACHO LPN on 20 January 2015 11:05 CDT Patient scheduled at the [facility] with Dr. Angel Luis Sheikh with the Division of Endocrinology on 02/03/2015 at 7:30am. Addendum by EUSEBIO CAMACHO LPN on 10 January 2015 17:02:52 RAISE DRILLER Patient informed of results. Online referral submitted to [facility]. They will contact patient directly to schedule. From: FORTINO ALARCON MD To: KEDAR Alarcon Nurse; Sent: 01/10/2015 16:26:30 RAISE DRILLER ! Show up: 01/10/2015 16:26:30 RAISE DRILLER Subject: Results Notification Actions: Notify patient of results Reminder Comments: Please call her. She has thyroid nodules on right lobe. Refer her to see Endocrinology at [facility]. Results: Date Result Type Result Name 01/10/2015 15:16 Radiology US Thyroid Source: [facility] POWERCHART Document Id: [id number] documented in this encounter Plan of Treatment Upcoming Encounters Date Type Specialty Care Team Description 11/01/2022 Office Visit Urology Regina Black APRN C.N.P. [address] [phone] (Wo rk) documented as of this encounter Procedures Procedure Name Priority Date/Time Associated Diagnosis Comme nts US THYROID Routine 01/10/2015 2:15 PM Results f or this RAISE DRILLER procedure are i n the results section . documented in this encounter Results Ultrasound thyroid (01/10/2015 2:15 PM RAISE DRILLER) Anatomical Region Laterality Modality Head and Neck Ultrasound Specimen (Source) Anatomical Collection Method Collection Time Re ceived Time Location / / Volume Laterality 01/10/2015 2:15 PM RAISE DRILLER Narrative 01/10/2015 3:13 PM RAISE DRILLER Thyroid ultrasound ??01/10/2013. History: 59-year-old female with right-s ided thyroid nodule. Comparison: None Findings: Right lobe of the thyroid: The right lob e of the thyroid measures 5.5 x 3.3 x 2.5 cm. Total volume measures 23 .8 cm?. There are 2 nodules within the left lobe of the thyroid, sup eriorly and having a hypoechoic appearance measuring 1.6 x 0. 5 x 1.4 cm, and inferiorly having a hyperechoic appearance (and a f ew internal microcalcifications) measuring 3.2 x 2.4 x 2.8 cm. Isthmus: The isthmus measures 2 mm thick . Left lobe of the thyroid: The left lobe of the thyroid measures 3.5 x 0.8 x 1.0 cm. Total volume measures 1.5 cm?. There is a normal homogeneous echogenicity throughout the left lobe of the thyroid. Impression: Right Thyroid nodules as shania cribed above, the largest of these has microcalcifications, consider thyroid biopsy for tissue diagnosis. Procedure Note Michael Calvert M.D. / Provider, Alondra pruett M.D. - 03/23/2017 Thyroid ultrasound 01/10/2013. History: 59-year-old female with right-s ided thyroid nodule. Comparison: None Findings: Right lobe of the thyroid: The right lob e of the thyroid measures 5.5 x 3.3 x 2.5 cm. Total volume measures 23 .8 cm?. There are 2 nodules within the left lobe of the thyroid, sup eriorly and having a hypoechoic appearance measuring 1.6 x 0. 5 x 1.4 cm, and inferiorly having a hyperechoic appearance (and a f ew internal microcalcifications) measuring 3.2 x 2.4 x 2.8 cm. Isthmus: The isthmus measures 2 mm thick . Left lobe of the thyroid: The left lobe of the thyroid measures 3.5 x 0.8 x 1.0 cm. Total volume measures 1.5 cm?. There is a normal homogeneous echogenicity throughout the left lobe of the thyroid. Impression: Right Thyroid nodules as shania cribed above, the largest of these has microcalcifications, consider thyroid biopsy for tissue diagnosis. Jose Marie Jr., R.D.M.S. IMG US PROCEDURES documented in this encounter Visit Diagnoses Not on filedocumented in this encounter
--- OUTSIDE RECORDS SUMMARY | 2022-09-22 13:38 | XMS_ITS | Encounter Summary ---
:[address] [facility] Address [address] [place] [address] Care Team Providers Name Role Phone Unavailable Primary Care Provider Unavailable Encounter Details Date Type Department Care Team Description 09/12/2014 Hospital Encounter HX [facility] Leonardo Sr M.D. [address] [phone] Social History Tobacco Use Types Packs/Day [...] often do you attend oriental orthodox or congregation services? Never 05/13/2019 Do you [...] at Date Recorded Female 11/29/2017 6:36 PM INFORMATION DEVELOPER documented as of this encounter Last Filed Vital Signs Vital Sign Reading Time Taken Comments Blood Pressure - - Pulse - - Temperature - - Respiratory Rate - - Oxygen Saturation - - Inhaled Oxygen Concentration - - Weight - - Height 171 cm (5' 7.32) 09/12/2014 8:19 AM CDT Body Mass Index - - [...] Visit Urology Regina Black, DIANN, C.N.P. [address] [phone] (Wo rk) documented as of this encounter Procedures Procedure Name Priority Date/Time Associated Diagnosis Comme nts BI BREAST SCREENING Routine 09/12/2014 8:30 AM Re sults for this BILATERAL CDT procedure are i n the results section. documented in this encounter Results BI Breast Screening Bilateral (09/12/2014 8:30 AM CDT) Anatomical Region Laterality Modality Breast Bilateral Mammography Specimen (Source) Anatomical Collection Method Collection Time Re ceived Time Location / / Volume Laterality 09/12/2014 8:30 AM CDT Impressions 09/25/2014 4:17 PM INFORMATION DEVELOPER Stable mammogram, no evidence of malignancy. BI-RADS code: 1, negative mammogram. Narrative 09/25/2014 4:17 PM INFORMATION DEVELOPER EXAM: [place] Mammo Screening w/ CADD INDICATION: Screening COMPARISON: 08/31/2013, 09/06/2011, and 08/25/2011. FINDINGS: Breasts are of scattered resid ual radiographic density in a stable pattern. No suspicious dominant m ass or clustered microcalcifications suspicious for maljoan nelson identified. There is no suspicious interval change compared with 08/31/2013. CAD was utilized in the interpretation o f this exam. Procedure Note Tong [place] Jr., M.D. / Silvia Braun M.D. - 03/26/2017 EXAM: MA Mammo Screening w/ CADD INDICATION: Screening COMPARISON: 08/31/2013, 09/06/2011, and 08/25/2011. FINDINGS: Breasts are of scattered resid ual radiographic density in a stable pattern. No suspicious dominant m ass or clustered microcalcifications suspicious for malig omar identified. There is no suspicious interval change compared with 08/31/2013. CAD was utilized in the interpretation o f this exam. IMPRESSION: Stable mammogram, no evidenc e of malignancy. BI-RADS code: 1, negative mammogram. Mary Rogel(R), R.TJuancho(R)(M) IMG BI PROCEDURES documented in this encounter Visit Diagnoses Not on filedocumented in this encounter
--- OUTSIDE RECORDS SUMMARY | 2022-09-22 13:38 | XMS_ITS | Encounter Summary ---
:1955 Author Organization [facility] Address [address] [place] [address] Care Team Providers Name Role Phone Unavailable Primary Care Provider Unavailable Encounter Details Date Type Department Care Team Description 08/23/2014 - Hospital Encounter HX RST Alex Butler, 08/26/2014 M.D. [address] [place] [id number] Social History Tobacco Use Types Packs/Day Years [...] er 09/12/2022 How often do you attend methodist or zoroastrian services? 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 documented as of this encounter Last Filed Vital Signs Vital Sign Reading Time Taken Comments Blood Pressure 137/89 08/26/2014 1:09 PM CDT Pulse 77 08/26/2014 1:09 PM CDT Temperature - - Respiratory Rate 18 08/26/2014 1:09 PM CDT Oxygen Saturation - - Inhaled Oxygen Concentration - - Weight 81.2 kg (179 lb 0.2 oz) 08/26/2014 7:59 AM CDT Height 170 cm (5' 6.93) 08/23/2014 8:09 PM CDT Body Mass Index 28.1 08/23/2014 8:09 PM CDT documented in this encounter Medications at Time of Discharge Medication Sig Dispensed Refills Start Date End Date raNITIdine (for_ZANTAC) Take 75 mg by mouth 0 05/12/2018 75 mg tablet once as needed. documented as of this encounter Plan of Treatment Upcoming Encounters Date Type Specialty Care Team Description 11/01/2022 Office Visit Urology Regina Black, DIANN, C.N.P. [address] [place] [address] [phone] (Wo rk) documented as of this encounter Procedures Procedure Name Priority Date/Time Associated Comments Diagnosis CBC WITH DIFFERENTIAL, Routine 08/26/2014 4:22 AM Results for this B CDT procedure are i n the results section. ELECTROLYTE (CHEM 4) Routine 08/25/2014 4:57 AM R esults for this PANEL, S/P CDT procedure are i n the results section. CBC WITH DIFFERENTIAL, Routine 08/25/2014 4:57 AM Results for this B CDT procedure are i n the results section. ELECTROLYTE (CHEM 4) Routine 08/24/2014 4:18 AM R esults for this PANEL, S/P CDT procedure are i n the results section. CBC WITH DIFFERENTIAL, Routine 08/24/2014 4:18 AM Results for this B CDT procedure are i n the results section. HX MICROBIOLOGY REPORTS Routine 08/23/2014 10:15 Results for this PM CDT procedure are i n the results section. HX MICROBIOLOGY REPORTS Routine 08/23/2014 10:01 Results for this PM CDT procedure are i n the results section. PROTHROMBIN TIME (PT), Routine 08/23/2014 10:01 R esults for this P PM CDT procedure are i n the results section. CBC WITH DIFFERENTIAL, Routine 08/23/2014 10:01 R esults for this B PM CDT procedure are i n the results section. LACTATE, B/P Routine 08/23/2014 10:01 Results for this PM CDT procedure are i n the results section. BASIC METABOLIC PANEL, Routine 08/23/2014 10:01 R esults for this S/P PM CDT procedure are i n the results section. DX ABDOMEN 1 VIEW Routine 08/23/2014 9:34 PM Resu lts for this CDT procedure are i n the results section. INTERPRETATION OF Routine 08/23/2014 8:55 PM Resu lts for this OUTSIDE CT ABDOMEN AND CDT proce dure are in OR PELVIS the results section. documented in this encounter Results (ABNORMAL) CBC with Differential (08/26/2014 4:22 AM CDT) [facility] Method Time Signature Hemoglobin 10.7 (L) 12.0 - [facility] 15.5 G/DL [facility] Hematocrit 34.5 (L) 34.9 - [facility] 44.5 % [facility] RBC Distrib 15.9 (H) 11.9 - [facility] Width 15.5 % [facility] Platelet Count 343 150 - 450 [facility] X10(9)/L [facility] Lymphocytes 1.77 0.90 - [facility] 2.90 LABORATORIES - X10(9)/L [facility] Monocytes 0.51 0.30 - [facility] 0.90 LABORATORIES - X10(9)/L [facility] Erythrocytes 4.00 3.90 - [facility] 5.03 LABORATORIES - X10(12)/L [facility] MCV 86.3 81.6 - [facility] 98.3 [place] [facility] Leukocytes 6.0 3.5 - [facility] 10.5 LABORATORIES - X10(9)/L [facility] Neutrophils 3.34 1.70 - [facility] 7.00 LABORATORIES - X10(9)/L [facility] Eosinophils 0.36 0.05 - [facility] 0.50 LABORATORIES - X10(9)/L [facility] Basophils 0.03 0.00 - [facility] 0.30 LABORATORIES - X10(9)/L [facility] Specimen Anatomical Collection Method Collection Time Receive d Time (Source) Location / / Volume Laterality 08/26/2014 4:22 AM 4 4:22 CDT AM CDT Jennifer Trevizo M.D. LAB BLOOD ADD-ON Performing Organization Address City/State/ZIP Code Phon e Number [facility] - [address] [place], [place] [address] [facility] (ABNORMAL) CBC with Differential (08/25/2014 4:57 AM CDT) [facility] Method Time Signature Hemoglobin 10.2 (L) 12.0 - [facility] 15.5 G/DL [facility] - [facility] Hematocrit 33.0 (L) 34.9 - [facility] 44.5 % [facility] RBC Distrib 16.7 (H) 11.9 - [facility] Width 15.5 % [facility] - [facility] Platelet Count 327 150 - 450 [facility] X10(9)/L [facility] Lymphocytes 1.41 0.90 - [facility] 2.90 LABORATORIES - X10(9)/L [facility] Monocytes 0.61 0.30 - [facility] 0.90 LABORATORIES - X10(9)/L [facility] Erythrocytes 3.80 (L) 3.90 - [facility] 5.03 LABORATORIES - X10(12)/L [facility] MCV 86.8 81.6 - [facility] 98.3 FL [facility] - [facility] Leukocytes 5.8 3.5 - [facility] 10.5 LABORATORIES - X10(9)/L [facility] Neutrophils 3.49 1.70 - [facility] 7.00 LABORATORIES - X10(9)/L [facility] Eosinophils 0.22 0.05 - [facility] 0.50 LABORATORIES - X10(9)/L [facility] Basophils 0.02 0.00 - [facility] 0.30 LABORATORIES - X10(9)/L [facility] Specimen Anatomical Collection Method Collection Time Receive d Time (Source) Location / / Volume Laterality 08/25/2014 4:57 AM 10/12/201 4 4:57 CDT AM CDT Jennifer Trevizo M.D. LAB BLOOD ADD-ON Performing Organization Address City/[facility] Code Phon e Number [facility] - [address] [place] [phone] [facility] (ABNORMAL) Electrolyte (Chem 4) Panel (08/25/2014 4:57 AM CDT) Analysis Performed At Patho logist Time Signature Chloride, S 107 98 - 107 [facility] MMOL/L LABORATORIES - [facility] HX Bicarbonate, 24 22 - 29 [facility] P/S MMOL/L [facility]ATORIES - [facility] Sodium, S 140 135 - 145 [facility] MMOL/L [facility]IES - [facility] Potassium, S 4.2 3.6 - 5.2 [facility] MMOL/L [facility] - [facility] Creatinine 0.7 0.6 - 1.1 [facility] MG/DL LAB[facility]ATORIES - [facility] eGFR >60 >60 [facility] Non-Black/Afric ML/MIN/BSA LABORATORIES - an Monegasque [facility] eGFR-Black/Afri >60 >60 [facility] can [place]onegasque ML/MIN/BSA LAB[facility]ATORIES - [facility] Anion Gap 9 7 - 15 [facility]ATORIES - [facility] Glucose, S 110 70 - 140 [facility] MG/DL [facility]ATORIES - [facility] BUN (Blood Urea 4 (L) 6 - 21 [facility] Nitrogen), S MG/DL [facility]IES - [facility] Specimen Anatomical Collection Method Collection Time Receive d Time (Source) Location / / Volume Laterality 08/25/2014 4:57 AM 4 4:57 CDT AM CDT Jennifer Trevizo M.D. LAB BLOOD ADD-ON Performing Organization Address City/State/ZIP Code Phon e Number [facility] - [address] [place], [place] [address] [facility] Electrolyte (Chem 4) Panel (08/24/2014 4:18 AM CDT) Analysis Performed At Patho logist Time Signature Chloride, S 106 98 - 107 [facility] MMOL/L [facility] - [facility] HX Bicarbonate, 25 22 - 29 [facility] P/S MMOL/L [facility]ATORIES - [facility] eGFR-Black/Afri >60 >60 [facility] can [place] ML/MIN/BSA LAB[facility]ATORIES - [facility] BUN (Blood Urea 7 6 - 21 [facility] Nitrogen), S MG/DL [facility] - [facility] Sodium, S 140 135 - 145 [facility] MMOL/L [facility] - [facility] Potassium, S 4.4 3.6 - 5.2 [facility] MMOL/L [facility] Creatinine 0.8 0.6 - 1.1 [facility] MG/DL [facility]IES - [facility] eGFR >60 >60 [facility] Non-Black/Afric ML/MIN/BSA LABORATORIES - an [place] [facility] Anion Gap 9 7 - 15 [facility]IES - [facility] Glucose, S 87 70 - 140 [facility] MG/DL [facility] - [facility] Specimen Anatomical Collection Method Collection Time Receive d Time (Source) Location / / Volume Laterality 08/24/2014 4:18 AM 4 4:18 CDT AM CDT Jaylen Diehl M.D. LAB BLOOD ADD-ON Performing Organization Address City/State/ZIP Code Phon e Number [facility] - [address] [place], [place] [address] [facility] (ABNORMAL) CBC with Differential (08/24/2014 4:18 AM CDT) [facility] gist Method Time Signature Erythrocytes 3.68 (L) 3.90 - [facility] 5.03 LABORATORIES - X10(12)/L [facility] MCV 86.7 81.6 - [facility] 98.3 [place] [facility] - [facility] RBC Distrib 16.7 (H) 11.9 - [facility] Width 15.5 % [facility]IES - [facility] Platelet Count 292 150 - 450 [facility] X10(9)/L [facility] Leukocytes 8.6 3.5 - [facility] 10.5 LABORATORIES - X10(9)/L [facility] Neutrophils 6.17 1.70 - [facility] 7.00 LABORATORIES - X10(9)/L [facility] Lymphocytes 1.69 0.90 - [facility] 2.90 LABORATORIES - X10(9)/L [facility] Monocytes 0.61 0.30 - [facility] 0.90 LABORATORIES - X10(9)/L [facility] Eosinophils 0.12 0.05 - [facility] 0.50 LABORATORIES - X10(9)/L [facility] Basophils 0.02 0.00 - [facility] 0.30 LABORATORIES - X10(9)/L [facility] Hemoglobin 9.8 (L) 12.0 - [facility] 15.5 G/DL [facility] Hematocrit 31.9 (L) 34.9 - [facility] 44.5 % [facility] Specimen Anatomical Collection Method Collection Time Receive d Time (Source) Location / / Volume Laterality 08/24/2014 4:18 AM 4 4:18 CDT AM CDT Jaylen Diehl M.D. LAB BLOOD ADD-ON Performing Organization Address City/State/ZIP Code Phon e Number [facility] - [address] [place], [place] [address] [facility] Microbiology Reports (08/23/2014 10:15 PM CDT) Specimen Anatomical Collection Method Collection Time Receive d Time (Source) Location / / Volume Laterality 08/23/2014 10:15 08/23/2014 PM CDT 10:16 PM CDT Narrative [facility] - 08/28/2014 11:31 PM CDT 23-AUG-2014 BLOOD, ? SoftOrd# [id number] ?(Ordered 23-AUG-2014; Collec danielle 23-AUG-2014 22:15; Received 23-AUG-2014 22:34) ?[facility] ?BACTERIA/LEEROY CULTURE, BLOOD ? (Reported 28-AUG-2014 23:31) FINAL ?No growth after 5 days of in cubation. Procedure Note 02/21/2018 23-AUG-2014 BLOOD, SoftOrd# [id number] (Ordered 23-AUG-2014; Collected 2013 22:15; Received 23-AUG-2014 22:34) [facility] BACTERIA/LEEROY CULTURE, BLOOD (Repor danielle 28-AUG-2014 23:31) FINAL No growth after 5 days of incubation. Historical Provider LAB MICROBIOLOGY - GENERAL O RDERABLES Performing Organization Address City/[facility] Code Phon e Number [facility] - [address] [place] [address] [facility] Microbiology Reports (08/23/2014 10:01 PM CDT) Specimen Anatomical Collection Method Collection Time Receive d Time (Source) Location / / Volume Laterality 08/23/2014 10:01 08/23/2014 PM CDT 10:02 PM CDT Narrative [facility] - 08/28/2014 11:30 PM CDT 23-AUG-2014 BLOOD, ? SoftOrd# [id number] ?(Ordered 23-AUG-2014; Collec danielle 23-AUG-2014 22:01; Received 23-AUG-2014 22:33) ?[facility] ?BACTERIA/LEEROY CULTURE, BLOOD ? (Reported 28-AUG-2014 23:30) FINAL ?No growth after 5 days of in cubation. Procedure Note 02/21/2018 23-AUG-2014 BLOOD, SoftOrd# [id number] (Ordered 23-AUG-2014; Collected 2013 22:01; Received 23-AUG-2014 22:33) [facility] BACTERIA/LEEROY CULTURE, BLOOD (Repor danielle 28-AUG-2014 23:30) FINAL No growth after 5 days of incubation. Jaylen Diehl M.D. LAB MICROBIOLOGY - GENERAL O RDERABLES Performing Organization Address City/[facility]/ZIP Code Phon e Number [facility] - [address] [place], [place] [address] [facility] Lactate (08/23/2014 10:01 PM CDT) P athologist Signature Lactate, P 0.8 0.6 - 2.3 [facility] MMOL/L [facility]ATORIES - [facility] Specimen Anatomical Collection Method Collection Time Receive d Time (Source) Location / / Volume Laterality 08/23/2014 10:01 08/23/2014 PM CDT 10:01 PM CDT Jaylen Diehl M.D. LAB BLOOD NON ADD-ON Performing Organization Address City/[facility]/ZIP Code Phon e Number [facility] - [address] [place], [place] [address] [facility] (ABNORMAL) PT (Prothrombin Time) with INR (08/23/2014 10:01 PM CDT) [facility] Method Time Signature Prothrombin 14.7 (H) 9.5 - [facility] Time, P 13.8 SEC [facility]ATORIES - [facility] INR 1.3 0.8 - 1.2 [facility] - [facility] Specimen Anatomical Collection Method Collection Time Receive d Time (Source) Location / / Volume Laterality 08/23/2014 10:01 08/23/2014 PM CDT 10:01 PM CDT Jaylen Diehl M.D. LAB BLOOD ADD-ON Performing Organization Address City/[facility]/ZIP Code Phon e Number [facility] - [address] [place] [phone] [facility] (ABNORMAL) BMP (Basic Metabolic Panel) (08/23/2014 10:01 PM CDT) [facility] Method [place] Signature Chloride, S 101 98 - 107 [facility] MMOL/L [facility] Creatinine 0.7 0.6 - 1.1 [facility] MG/DL [facility] BUN (Blood Urea 8 6 - 21 [facility] Nitrogen), S MG/DL [facility] HX Bicarbonate, 23 22 - 29 [facility] P/S MMOL/L [facility] - [facility] Glucose, S 73 70 - 140 [facility] MG/DL [facility] Anion Gap 9 7 - 15 [facility] Sodium, P 133 (L) 135 - 145 [facility] MMOL/L [facility] - [facility] Potassium, P 3.3 (L) 3.6 - 5.2 [facility] MMOL/L [facility] eGFR >60 >60 [facility] Non-Black/Afric ML/MIN/BS LABORATORIES - an [place]onegasque A [facility] eGFR-Black/Afri >60 >60 [facility] can [place] ML/MIN/BS LABORATORIES - A [facility] Specimen Anatomical Collection Method Collection Time Receive d Time (Source) Location / / Volume Laterality 08/23/2014 10:08/23/2014 PM CDT 10:01 PM CDT Jaylen Diehl M.D. LAB BLOOD ADD-ON Performing Organization Address City/State/ZIP Code Phon e Number [facility] - [address] [place], [place] [address] [facility] (ABNORMAL) CBC with Differential (08/23/2014 10:01 PM CDT) [facility] gist Method Time Signature Hemoglobin 9.9 (L) 12.0 - [facility] 15.5 G/DL [facility]ATORIES - [facility] Hematocrit 31.6 (L) 34.9 - [facility] 44.5 % [facility]ATORIES - [facility] RBC Distrib 16.6 (H) 11.9 - [facility] Width 15.5 % [facility]IES - [facility] Platelet Count 292 150 - 450 [facility] X10(9)/L [facility] - [facility] Leukocytes 11.2 (H) 3.5 - [facility] 10.5 LABORATORIES - X10(9)/L [facility] Neutrophils 8.49 (H) 1.70 - [facility] 7.00 LABORATORIES - X10(9)/L [facility] Lymphocytes 1.73 0.90 - [facility] 2.90 LABORATORIES - X10(9)/L [facility] Monocytes 0.92 (H) 0.30 - [facility] 0.90 LABORATORIES - X10(9)/L [facility] Erythrocytes 3.67 (L) 3.90 - [facility] 5.03 LABORATORIES - X10(12)/L [facility] MCV 86.1 81.6 - [facility] 98.3 [place] [facility]IES - [facility] Eosinophils 0.08 0.05 - [facility] 0.50 LABORATORIES - X10(9)/L [facility] Basophils 0.02 0.00 - [facility] 0.30 LABORATORIES - X10(9)/L [facility] Specimen Anatomical Collection Method Collection Time Receive d Time (Source) Location / / Volume Laterality 08/23/2014 10:08/23/2014 PM CDT 10:01 PM CDT Jaylen Diehl M.D. LAB BLOOD ADD-ON Performing Organization Address City/State/ZIP Code Phon e Number [facility] - [address] [place], [place] [address] [facility] DX Abdomen 1 View (08/23/2014 9:34 PM CDT) Anatomical Region Laterality Modality Abdomen N/A Radiographic Imaging Specimen (Source) Anatomical Collection Method Collection Time Re ceived Time Location / / Volume Laterality 08/23/2014 9:34 PM CDT Impressions 08/24/2014 7:08 AM CDT Esophageal hiatal hernia. Residual contrast in the urinary collecting systems and bladder. Right bladder diverticulum. Scattered bowel gas in a nonobstructive pattern. To evaluate for free intraperiton eal air, recommend upright or decubitus radiographs. Electronically signed by: ?? Debra Casarez MD [phone] 24-Aug-2014 00:4 6 I have reviewed the films/images and agr ee with the above interpretation. Electronically signed by: ?? Roxy Bass MD. ??[phone] 24-Aug-2014 07: 08 Narrative 08/24/2014 7:08 AM CDT 23-Aug-2014 21:34:00 ??Exam: Abdomen Indications: Any evidence of perforation . Recent colonoscopy with electrocautery Worsened abdominal pain. Pain in RLQ an outside CT query perforation. Any evide nce of free air? ORIGINAL REPORT - 24-Aug-2014 00:46:00 EXAM: ??Abdomen Procedure Note Juancarlos Bass M.D. - 02/10/2018Formatti ng of this note might be different from the original. 23-Aug-2014 21:34:00 Exam: Abdomen Indications: Any evidence of perforation . Recent colonoscopy with electrocautery Worsened abdominal pain. Pain in RLQ an outside CT query perforation. Any evide nce of free air? ORIGINAL REPORT - 24-Aug-2014 00:46:00 EXAM: Abdomen IMPRESSION: Esophageal hiatal hernia. Re sidual contrast in the urinary collecting systems and bladder. Right bladder diverticulum. Scattered bowel gas in a nonobstructive pattern. To evaluate for free intraperitoneal air, recommend upright o r decubitus radiographs. Electronically signed by: Debra Casarez MD [phone] 24-Aug-2014 00:4 6 I have reviewed the films/images and agr ee with the above interpretation. Electronically signed by: Roxy Bass MD. [phone] 24-Aug-2014 07:08 Jaylen [facility] Interpretation of Outside CT Abdomen and or Pelvis (08/23/2014 8:55 PM CDT) Anatomical Region Laterality Modality Abdomen, Pelvis N/A Computed Tomography Specimen (Source) Anatomical Collection Method Collection Time Re ceived Time Location / / Volume Laterality 08/23/2014 8:55 PM CDT Impressions 08/24/2014 9:51 AM CDT ??Small cecal perforation as detailed below. FINDINGS: ?? Prominent amount of stool a nd air within a capacious redundant cecum descending colon with several adjacent definitely extracolonic air collections and mild inflammatory change, consistent with a small perforation. One or 2 tiny fluid collections along adjacent fascial planes. No evidence to suggest abscess. Terminal ileum remains decompressed. These findings are new since 12/28/2013. No a dditional abnormal air collections in th e abdomen or pelvis. Otherwise no change. Extensive colonic d iverticulosis, most marked in the sigmoid colon. Large esophageal hiatal hernia. Calcified granulomas in the spleen. Electronically signed by: ?? Ruma Vo ?? [phone] 24-Aug-2014 09:51 Narrative 08/24/2014 9:51 AM CDT 23-Aug-2014 20:55:00 ??Exam: Interp of OS CT Abd and or Pel Indications: Abdominal pain r/o perf ORIGINAL REPORT - 24-Aug-2014 09:51:00 EXAM: ??Interp of OS CT Abd and or Pel p erformed with intravenous contrast on 08/23/2014. COMPARISON: ??Prior outside CT scan of t he abdomen and pelvis 12/28/2013. Procedure Note Gabe Vo M.D. - 02/10/2018Format ting of this note might be different from the original. 23-Aug-2014 20:55:00 Exam: Interp of OS CT Abd and or Pel Indications: Abdominal pain r/o perf ORIGINAL REPORT - 24-Aug-2014 09:51:00 EXAM: Interp of OS CT Abd and or Pel per formed with intravenous contrast on 08/23/2014. COMPARISON: Prior outside CT scan of the abdomen and pelvis 12/28/2013. IMPRESSION: Small cecal perforation as d etailed below. FINDINGS: Prominent amount of stool and air within a capacious redundant cecum descending colon with several adjacent definitely extracolonic air collections and mild inflammatory change, consistent with a small perforation. One or 2 tiny fluid collect ions along adjacent fascial planes. No evidence to suggest abscess. Terminal ileum remains decompressed. These findings are new since 12/28/2013. No additional abnormal air collections in the abdomen or pelvis. Otherwise no change. Extensive colonic d iverticulosis, most marked in the sigmoid colon. Large esophageal hiatal hernia. Calcified granulomas in the spleen. Electronically signed by: Ruma Vo MD [phone] 24-Aug-2014 09:51 Jaylen Diehl M.D. IMCandida CT PROCEDURES documented in this encounter Visit Diagnoses Not on filedocumented in this encounter
--- OUTSIDE RECORDS SUMMARY | 2022-09-22 13:38 | XMS_ITS | Encounter Summary ---
:1955 Author Organization [facility] Address [address] [place] [address] Care Team Providers Name Role Phone Unavailable Primary Care Provider Unavailable Encounter Details Date Type Department Care Team Description 10/29/2014 Hospital Encounter HX [facility] Cindy Alarcon M.D. [address] [facility], [facility] [address] [place] [phone] Social History Tobacco Use Types Packs/Day [...] er 09/12/2022 How often do you attend yarsanism or restorationism services? Never 05/13/2019 Do you belong to any clubs or organizations such as yarsanism N o 09/12/2022 groups, unions, fraternal or [...] at Date Recorded Female 11/29/2017 6:36 PM CAPITAL PROJECT ENGINEER documented as of this encounter Last Filed Vital Signs Vital Sign Reading Time Taken Comments Blood Pressure - - Pulse - - Temperature - - Respiratory Rate - - Oxygen Saturation - - Inhaled Oxygen Concentration - - Weight - - Height 171 cm (5' 7.32) 10/29/2014 10:22 AM CAPITAL PROJECT ENGINEER Body Mass Index - - documented in [...] of this encounter Miscellaneous Notes Miscellaneous - David Lemons M.D. - 10/29/2014 11:18 AM CST Results Notification Document Contains Addenda Addendum by RICHELLE PIRES LPN on 31 October 2014 15:28:38 CAPITAL PROJECT ENGINEER called with results From: DAVID LEMONS MD To: KEDAR Lemons Nurse; Sent: 10/29/2014 11:18:06 CAPITAL PROJECT ENGINEER ! Show up: 10/29/2014 11:18:06 CAPITAL PROJECT ENGINEER Subject: Results Notification Actions: Notify patient of results Reminder Comments: ok Results: Date Result Name Ind Value Ref Range 10/29/2014 10:29 Sodium Lvl 138 mmol/L (135 - 145) 10/29/2014 10:29 Potassium Lvl (H) 5.0 mmol/L (3.5 - 4.8) 10/29/2014 10:29 Chloride 102 mmol/L (100 - 108) 10/29/2014 10:29 CO2 28 mmol/L (22 - 30) 10/29/2014 10:29 Glucose Lvl 78 10/29/2014 10:29 Creatinine 0.7 mg/dL (0.7 - 1.2) 10/29/2014 10:29 EGFR (MDRD) >60 mL/min 10/29/2014 10:29 EGFR (MDRD) >60 mL/min/1.73m2 (>=60 - ) 10/29/2014 10:29 BUN 13 mg/dL (6 - 20) 10/29/2014 10:29 Calcium Lvl 9.6 mg/dL (8.5 - 10.5) 10/29/2014 10:29 Hgb 12.7 g/dL (12.0 - 15.5) 10/29/2014 10:29 Hct 39.7 % (34.9 - 44.5) 10/29/2014 10:29 WBC 5.8 x10(9)/L (3.4 - 10.5) 10/29/2014 10:29 RBC 4.56 x10(12)/L (3.90 - 5.03) 10/29/2014 10:29 MCV 87.1 fL (82.0 - 98.0) 10/29/2014 10:29 RDW 14.3 % (11.9 - 15.5) 10/29/2014 10:29 Platelet 334 x10(9)/L (150 - 450) 10/29/2014 10:29 Neutro Absolute 3.09 10(9)/L (1.70 - 7.00) 10/29/2014 10:29 Lymph Absolute 1.91 x10(9)/L (0.90 - 2.90) 10/29/2014 10:29 Sebastian Absolute 0.58 x10(9)/L (0.30 - 0.90) 10/29/2014 10:29 Eos Absolute 0.23 x10(9)/L (0.05 - 0.50) 10/29/2014 10:29 Baso Absolute 0.01 x10(9)/L (0.00 - 0.30) 10/29/2014 10:29 Differential? Auto Source: [facility] POWERCHART Document Id: [id number] Electronically signed by Conversion, [facility] Site Safety Coordinator [id number] at 04/12/2017 5:44 PM CDT documented in this encounter Plan of Treatment Upcoming Encounters Date Type Specialty Care Team Description 11/01/2022 Office Visit Urology Regina Black APRN, C.N.P. [address] [facility] [phone] (Wo rk) documented as of this encounter Procedures Procedure Name Priority Date/Time Associated Diagnosis Comme nts AUTOMATED Routine 10/29/2014 10:29 AM Results for this DIFFERENTIAL, B CAPITAL PROJECT ENGINEER procedure ar e in the results section. IRON AND TOT Routine 10/29/2014 10:29 AM Results for this IRON-BINDING CAPITAL PROJECT ENGINEER procedure are i n CAPACITY, S/P the results section. CBC WITH Routine 10/29/2014 10:29 AM Results for this DIFFERENTIAL, B CAPITAL PROJECT ENGINEER procedure ar e in the results section. FERRITIN, S Routine 10/29/2014 10:29 AM Results for this CAPITAL PROJECT ENGINEER procedure are i n the results section. BASIC METABOLIC Routine 10/29/2014 10:29 AM Resul ts for this PANEL, S/P CAPITAL PROJECT ENGINEER procedure are i n the results section. documented in this encounter Results Automated Differential (10/29/2014 10:29 AM CAPITAL PROJECT ENGINEER) athologist Signature Absolute 3.09 1.70 - POWERCHART Neutrophils 7.00 109L Lymphocytes 1.91 0.90 - POWERCHART 2.90 X109L Monocytes 0.58 0.30 - POWERCHART 0.90 X109L Eosinophils 0.23 0.05 - POWERCHART 0.50 X109L Absolute 0.01 0.00 - POWERCHART Basophil 0.30 X109L Specimen Anatomical Collection Method Collection Time Receive d Time (Source) Location / / Volume Laterality Blood 10/29/2014 10:29 10/29/2014 AM CAPITAL PROJECT ENGINEER 10:29 AM CAPITAL PROJECT ENGINEER Cindy Alarcon M.D. LAB BLOOD ADD-ON Performing Organization Address City/State/ZIP Code Phon e Number POWERCHART CBC with Differential (10/29/2014 10:29 AM CAPITAL PROJECT ENGINEER) athologist Signature Leukocytes 5.8 3.4 - 10.5 POWERCHART X109L Erythrocytes 4.56 3.90 - POWERCHART 5.03 Q3661C Hemoglobin 12.7 12.0 - POWERCHART 15.5 GDL Hematocrit 39.7 34.9 - POWERCHART 44.5 MCV 87.1 82.0 - POWERCHART 98.0 FL Platelet Count 334 150 - 450 POWERCHART X109L HX RDW 14.3 11.9 - POWERCHART 15.5 HXDifferential? Auto POWERCHART Specimen (Source) Anatomical Collection Method Collection Time Re ceived Time Location / / Volume Laterality Blood 10/29/2014 10:29 AM CAPITAL PROJECT ENGINEER Cindy Alarcon M.D. LAB BLOOD ADD-ON Performing Organization Address City/State/ZIP Code Phon e Number POWERCHART Ferritin (10/29/2014 10:29 AM CAPITAL PROJECT ENGINEER) athologist Signature Ferritin, S 30 11 - 307 POWERCHART NGML Specimen (Source) Anatomical Collection Method Collection Time Re ceived Time Location / / Volume Laterality Blood 10/29/2014 10:29 AM CAPITAL PROJECT ENGINEER Phforrest Alarcon M.D. LAB BLOOD ADD-ON Performing Organization Address City/State/ZIP Code Phon e Number POWERCHART (ABNORMAL) Iron and Total Iron-Binding Capacity (10/29/2014 10:29 AM CAPITAL PROJECT ENGINEER) [facility] Method Time Signature Iron 28 (L) 35 - 145 POWERCHART MCGDL Percent Saturation 9.1 (L) 13.9 - POWERCHART 50.1 Total Iron Binding 309 250 - 400 POWERCHART Capacity UGDL Unbound Iron 281 MCGDL POWERCHART Concentration Specimen (Source) Anatomical Collection Method Collection Time Re ceived Time Location / / Volume Laterality Blood 10/29/2014 10:29 AM CAPITAL PROJECT ENGINEER Cindy Alarcon M.D. LAB BLOOD ADD-ON Performing Organization Address City/[facility]/ZIP Code Phon e Number POWERCHART (ABNORMAL) BMP (Basic Metabolic Panel) (10/29/2014 10:29 AM CAPITAL PROJECT ENGINEER) P athologist Signature BUN (Blood Urea 13 6 - 20 POWERCHART Nitrogen), S MGDL Creatinine 0.7 0.7 - 1.2 POWERCHART MGDL Glucose 78 POWERCHART Potassium, S 5.0 (H) 3.5 - 4.8 POWERCHART MMOLL Sodium, S 138 135 - 145 POWERCHART MMOLL Chloride, S 102 100 - 108 POWERCHART MMOLL CO2 Total 28 22 - 30 POWERCHART MMOLL Calcium, Total, 9.6 8.5 - 10.5 POWERCHART S MGDL HXeGFR (MDRD) >60 MLMIN POWERCHART eGFR >60 >=60 POWERCHART Black/ [id number] [place] Specimen (Source) Anatomical Collection Method Collection Time Re ceived Time Location / / Volume Laterality Blood 10/29/2014 10:29 AM CAPITAL PROJECT ENGINEER Cindy Alarcon M.D. LAB BLOOD ADD-ON Performing Organization Address City/State/ZIP Code Phon e Number POWERCHART documented in this encounter Visit Diagnoses Not on filedocumented in this encounter
--- OUTSIDE RECORDS SUMMARY | 2022-09-22 13:38 | XMS_ITS | Encounter Summary ---
:1955 Author Organization [facility] Address [address] [place] [id number] Care Team Providers Name Role Phone Unavailable Primary Care Provider Unavailable Encounter Details Date Type Department Care Team Description 08/22/2014 Hospital Encounter HX NO MAPPING Social History [...] How often do you attend rastafari or sabianist services? Never 05/13/2019 Do you [...] at Date Recorded Female 11/29/2017 6:36 PM RISK MANAGEMENT ANALYST documented as of this encounter Medications at Time of Discharge Medication Sig Dispensed Refills Start Date End Date raNITIdine (for_ZANTAC) Take 75 mg by mouth 0 05/12/2018 75 mg tablet once as needed. documented as of this encounter Plan of Treatment Upcoming Encounters Date Type Specialty Care Team Description 11/01/2022 Office Visit Urology Regina Black, DIANN, C.N.P. [address] [place], [place] [phone] (Wo rk) documented as of this encounter Visit Diagnoses Not on filedocumented in this encounter
--- OUTSIDE RECORDS SUMMARY | 2022-09-22 13:38 | XMS_ITS | Encounter Summary ---
:1955 Author Organization [facility] Address [address] [place] [address] Care Team Providers Name Role Phone Unavailable Primary Care Provider Unavailable Encounter Details Date Type Department Care Team Description 05/09/[address] [facility] Fortino Yadav M.D. [address] [place] [address] 761 Social History Tobacco Use Types Packs/Day [...] How often do you attend taoism or muslim services? 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 - 05/09/2015 2:19 PM CDT [id number] CHIEF COMPLAINT/ REASON FOR VISIT Hospital followup. HISTORY OF PRESENT ILLNESS Alfredo is a 59-year-old female who presents to the clinic today for a hospital followup. She was seen and admitted at [facility] ER on 04/30/2015 for abdominal pain and bloating. She was discharged on 05/01/2015. She had abdomen/pelvis CT on 04/30/2015, which showed: 1. Small-bowel obstruction present with transition point along the anterior abdominal wall. This maybe due to abdominal adhesions. 2. Large hiatal hernia is present containing nearly half of the stomach. She still has some upper abdominal tenderness, especially after eating. She mentioned that she had been doing a lot of exercises the day she was hospitalized. She feels that she is still irregular for her bowel movement. She had bowel movement yesterday. Patient has iron deficiency anemia. She has been followed by gastroenterology and hematology at [facility]. She denies bleeding symptoms. She uses BiPAP machine regularly. She feels much better since she's been using BiPAP. She has been followed by Dr. Long in the past. She saw Dr. Angel Luis Sheikh, Carbonation Equipment Operator and Dr. Mario Franz, General Surgeon at [facility] on 04/17/2015 for right thyroid nodule. At that time, it was recommended to proceed with diagnostic thyroid lobectomy. I reviewed her medication list. We discussed potential side effects. Otherwise, there are no additional questions, concerns, or complaints. MEDICATIONS Reviewed and updated as per the EHR on 05/09/2015. ALLERGIES Reviewed and updated as per the EHR on 05/09/2015. SYSTEMS REVIEW As per the history of present illness. All other systems are reviewed and are negative. PAST MEDICAL/ SURGICAL HISTORY Reviewed and updated as per the EHR on 05/09/2015. PREVENTIVE SERVICES Reviewed and updated as per the EHR on 05/09/2015. SOCIAL HISTORY Reviewed and updated as per the EHR on 05/09/2015. FAMILY HISTORY Reviewed and updated as per the EHR on 05/09/2015. VITAL SIGNS HEIGHT: 170 cm. WEIGHT: 81.5 kg. BMI: 28.2 kg/m2. PULSE: 78 /min. RESP: 16 /min. SYSTOLIC: 106 mmHg. DIASTOLIC: 69 mmHg. PHYSICAL EXAMINATION GENERAL: [...] LYMPH NODES: No cervical or supraclavicular lymphadenopathy. HEART: No carotid bruit. No JVD. Regular rhythm. There is no S3, gallop, murmur, or thrill. LUNGS: Normal respiratory effort. Clear to auscultation. Normal percussion. ABDOMEN: Moves with respiration. Bowel sounds present. Soft. No rebound tenderness, guarding, or rigidity. No organomegaly. EXTREMITIES: No clubbing, cyanosis, edema, infection, or calf tenderness. MENTAL: Alert and oriented x 3. Normal mood and affect. IMPRESSION/ REPORT/ PLAN 1. Small bowel obstruction. It is improving. She no longer has symptoms. I reviewed [facility] record. She has never had abdominal surgery. I advised her to eat small, easily digestible foods.She can drink Pedialyte or Gatorade. If she has recurrent bowel obstruction, she may need laparoscopic evaluation. 2. Thyroid nodule, right lobe. She does not have symptoms. I reviewed endocrinology and general surgeon recommendation. She had thyroid biopsy. She will proceed with diagnostic thyroid lobectomy on 06/06/2015 at [facility]. We will follow specialists recommendations. 3. Hyperlipidemia. Fasting lipid profile was last done in 2012. Patient was advised to continue low cholesterol, low fat diet and regular exercise. Need to check fasting lipid profile again in 3 months. 4. Hypokalemia. She is asymptomatic. We need to watch electrolytes and renal function. We will continue cardiovascular risk factor modifications. 5. Iron deficiency anemia. It is improving. Recent hemoglobin and hematocrit were normal. There was no evidence of bleeding. It should be noted that she didnt tolerate Vitron-C. We will monitor CBC andiron study in subsequent visit. 6. Leukocytosis. Her white blood cell is just above normal. Probably, there was some inflammation inher abdomen leading to small bowel obstruction. We will check CBC today. 7. Elevated liver function. She is asymptomatic. She doesnt drink alcohol. Need to check liver function. Todays studies: BMP, CBC, and HFP. She will be notified with results. The patient will return to the clinic in 3 months for followup with following tests: Fasting BMP, CBC, Ferritin, HFP, Iron, and Lipid. This document serves as a record of services personally performed by Dr. Fortino Alarcon. It was created on their behalf by Denny Newman, a trained medical coding manager. The creation of this record is based on the scribe's personal observations and the provider's statements to them. This document has been checked and approved by the attending provider. Fortino Alarcon M.D./mirian Electronically Signed By: FORTINO ALARCON MD On: 05/12/2015 08:05 AM Modified by and Electronically Signed by: FORTINO ALARCON MD On: 05/12/2015 08:05 AM Source: [facility] MHSDOLBEYNONRADSYS Document Id: [id number] documented in this encounter Miscellaneous Notes Telephone Encounter - Conversion, Historical Provider Ser - 06/12/2015 4:51 PM CDT *Phone Message Document Contains Addenda Addendum by EUSEBIO CAMACHO LPN on 12 June 2015 17:32:28 CDT Called and spoke with patient. Patient states that she had thyroid surgery last tuesday. On tuesday she had a good size bowel movement. but since them she has been passing only small hard marbles every other day. Patient had a bowel obstruction about a month ago so is very nervous. She has been taking two doses of miralex daily, two doses of metamucil daily, took a ducolex suppository today and 1/2 bottle of magnesium citrate with no results. Patient denies abdominal pain, nausea, or vomitting but does state she feels slightly bloated. Per Dr. Alarcon patient advised to stop the metamucil. Increase fluid intake, start colace 100mg twice daily, continue miralax twice daily and use senna 2-4 times a day prn. If patient experiences pain, nausea, or vomitting she is advised to go to the ER. Patient understands directions. From: NICO RIVERA (KEDAR Moreland Operations Inspector) To: KEDAR Alarcon Nurse; Sent: 06/12/2015 16:51:35 CDT Subject: *Phone Message Caller is: ( x ) Patient ( ) Mother ( ) Father ( ) Spouse ( ) Daughter ( ) Son ( ) Pharmacy ( ) Other: Physician: Patient MRN #: Reason for Call: S: Patient is wondering if she needs to be concerned that she has not had much of abowel movement since her thyroid surgery last . Is this something she should be concerned about? She tried the nurse line, was on hold for 10 min, then got disconnected. B: She has had a bowel obstruction as well A: R: Please call her at [phone] Message: Advice/Action: Source used: ( ) Verbalizes [...] back cell phone number ( ) Source: [facility] [employer] Document Id: [id number] Miscellaneous - Fortino Alarcon M.D. - 05/12/2015 8:33 AM CDT Lab results from 05/09/2015 From: FORTINO ALARCON MD To: ALFREDO OLIVEROS Cc: FB Dorian Nurse; Sent: 05/12/2015 08:33:40 CDT Subject: Lab results from 05/09/2015 Actions: Notify patient of results I am pleased to report that your tests for electrolytes, glucose, kidney function, liver and blood count are normal. Please follow up with us as we discussed during your visit or sooner if you have anyconcerns. If you have questions or concerns, please do not hesitate to call our office. Results: Date Result Name Value Ref Range 05/09/2015 15:17 Sodium Lvl 140 mmol/L (135 - 145) 05/09/2015 15:17 Potassium Lvl 4.9 mmol/L (3.6 - 5.2) 05/09/2015 15:17 Chloride 102 mmol/L (98 - 107) 05/09/2015 15:17 CO2 28 mmol/L (22 - 29) 05/09/2015 15:17 Alkaline Phosphatase 95 unit/L (46 - 118) 05/09/2015 15:17 Glucose Lvl 87 mg/dL (70 - 139) 05/09/2015 15:17 Creatinine 0.7 mg/dL (0.6 - 1.1) 05/09/2015 15:17 EGFR (MDRD) >60 mL/min/1.73m2 (>=60 - ) 05/09/2015 15:17 EGFR (MDRD) >60 mL/min/1.73m2 (>=60 - ) 05/09/2015 15:17 BUN 10 mg/dL (6 - 21) 05/09/2015 15:17 Calcium Lvl 10.2 mg/dL (8.0 - 10.3) 05/09/2015 15:17 Protein Total 6.9 G/DL (6.3 - 7.9) 05/09/2015 15:17 Albumin Lvl 4.5 G/DL (3.2 - 5.2) 05/09/2015 15:17 Globulin 2 05/09/2015 15:17 AST 25 unit/L (8 - 43) 05/09/2015 15:17 ALT 39 unit/L (7 - 45) 05/09/2015 15:17 Bili Total 0.3 mg/dL (0.1 - 1.0) 05/09/2015 15:17 Bili Direct <0.20 mg/dL ( - <=0.30) 05/09/2015 15:17 Hgb 14.1 g/dL (12.0 - 15.5) 05/09/2015 15:17 Hct 42.0 % (34.9 - 44.5) 05/09/2015 15:17 WBC 6.8 x10(9)/L (3.4 - 10.5) 05/09/2015 15:17 RBC 4.53 x10(12)/L (3.90 - 5.03) 05/09/2015 15:17 MCV 92.7 fL (82.0 - 98.0) 05/09/2015 15:17 RDW 12.5 % (11.9 - 15.5) 05/09/2015 15:17 Platelet 287 x10(9)/L (150 - 450) 05/09/2015 15:17 Neutro Absolute 4.06 10(9)/L (1.70 - 7.00) 05/09/2015 15:17 Lymph Absolute 1.98 x10(9)/L (0.90 - 2.90) 05/09/2015 15:17 [place] Absolute 0.51 x10(9)/L (0.30 - 0.90) 05/09/2015 15:17 Eos Absolute 0.20 x10(9)/L (0.05 - 0.50) 05/09/2015 15:17 Baso Absolute 0.04 x10(9)/L (0.00 - 0.30) Source: [facility] POWERCHART Document Id: [id number] Electronically signed by Conversion, [facility] Associate Store Leader [id number] at 04/11/2017 11:17 AM CDT Miscellaneous - Fortino Alarcon M.D. - 05/12/2015 8:33 AM CDT Normal Results Letter 12 May 2015 ALFREDO OLIVEROS [address] [place] [address] [id number] Dear ALFREDO OLIVEROS, I am pleased to report that your tests for electrolytes, glucose, kidney function, liver and blood count are normal. Please follow up with us as we discussed during your visit or sooner if you have anyconcerns. If you have questions or concerns, please do not hesitate to call our office. Result Name Current Result Normal Range Sodium Lvl (mmol/L) 140 05/09/2015 135 - 145 Potassium Lvl (mmol/L) 4.9 05/09/2015 3.6 - 5.2 Chloride (mmol/L) 102 05/09/2015 98 - 107 CO2 (mmol/L) 28 05/09/2015 22 - 29 Alkaline Phosphatase (unit/L) 95 05/09/2015 46 - 118 Glucose Lvl (mg/dL) 87 05/09/2015 70 - 139 Creatinine (mg/dL) 0.7 05/09/2015 0.6 - 1.1 EGFR (MDRD) (mL/min/1.73m2) >60 05/09/2015 >=60 - BUN (mg/dL) 10 05/09/2015 6 - 21 Calcium Lvl (mg/dL) 10.2 05/09/2015 8.0 - 10.3 Protein Total (G/DL) 6.9 05/09/2015 6.3 - 7.9 Albumin Lvl (G/DL) 4.5 05/09/2015 3.2 - 5.2 Globulin 2 05/09/2015 AST (unit/L) 25 05/09/2015 8 - 43 ALT (unit/L) 39 05/09/2015 7 - 45 Bili Total (mg/dL) 0.3 05/09/2015 0.1 - 1.0 Bili Direct (mg/dL) <0.20 05/09/2015 - <=0.30 Hgb (g/dL) 14.1 05/09/2015 12.0 - 15.5 Hct (%) 42.0 05/09/2015 34.9 - 44.5 WBC (x10(9)/L) 6.8 05/09/2015 3.4 - 10.5 RBC (x10(12)/L) 4.53 05/09/2015 3.90 - 5.03 MCV (fL) 92.7 05/09/2015 528268.0 - 98.0 RDW (%) 12.5 05/09/2015 11.9 - 15.5 Platelet (x10(9)/L) 287 05/09/2015 150 - 450 Neutro Absolute (10(9)/L) 4.06 05/09/2015 1.70 - 7.00 Lymph Absolute (x10(9)/L) 1.98 05/09/2015 0.90 - 2.90 [place] Absolute (x10(9)/L) 0.51 05/09/2015 0.30 - 0.90 Eos Absolute (x10(9)/L) 0.20 05/09/2015 0.05 - 0.50 Baso Absolute (x10(9)/L) 0.04 05/09/2015 0.00 - 0.30 Sincerely, FORTINO ALARCON [address] [facility] [place] [address] Electronic Signature Electronically Signed By: FORTINO ALARCON MD On: 12 May 2015 This document has images extracted. Source: [facility] POWERCHART Document Id: [id number] Electronically signed by Harpal [facility] Associate Store Leader [id number] at 04/11/2017 11:17 AM CDT Miscellaneous - Fortino Alarcon M.D. - 05/09/2015 2:57 PM CDT Ambulatory Patient Summary [address] [facility] [place] [id number] Visit Information Name: ALFREDO OLIVEROS [facility] Number: [id number] Current Date: 05/09/2015 14:56:59 Physicians Attending Provider: FORTINO ALARCON MD Primary [...] cap, Oral, once a day One by [place] omega-3 polyunsaturated fatty acids (Fish Oil [...] the Following Medications: Medication list as of 05-09-15 14:56 Attention: If you have any medications [...] Electronically Signed By: FORTINO ALARCON MD Signed On:09-MAY-2015 14:56:53 Your Allergies & Intolerances Substance Reaction Symptoms [...] (IFG) Fasting Glucose Active Hyperlipidemia, Borderline per [facility] Active Your Upcoming Appointments Date Time Location [...] if you dont have one. Go to [email or web address] and click on Create Your Account. Then, follow the directions to complete the online form. Youll be asked for your [facility] number which you can find at the top of this document. Your Goals/Additional instructions: Source: [facility] POWERCHART Document Id: [id number] Miscellaneous - Fortino Alarcon M.D. - 05/09/2015 2:56 PM CDT Ambulatory Discharge Medication List [address] [id number] Visit Information Name: MANINDERALFREDO LI PABLO [facility] Number: [id number] Visit Date: 05/09/2015 14:56:59 Attending Provider: FORTINO ALARCON MD Primary Care [...] cap, Oral, once a day One by [place] omega-3 polyunsaturated fatty acids (Fish Oil [...] the Following Medications: Medication list as of 05-09-15 14:56 Attention: If you have any medications [...] Electronically Signed By: FORTINO ALARCON MD Signed On:09-MAY-2015 14:56:53 Additional Information: Source: [facility] POWERCHART Document Id: [id number] Miscellaneous - Eusebio Camacho, L.P.N. - 05/09/2015 2:23 PM CDT Adult Client Application Support Engineer Intake/History Adult Client Application Support Engineer Intake/History Entered On: 05/09/2015 14:26 CDT Performed On: 05/09/2015 14:23 CDT by EUSEBIO CAMACHO LPN Intake Chief Complaint : 1. post hospital check - [facility] on 05/01/2015 - small bowel obstruction Peripheral Pulse Rate : 78 /min Respiratory Rate : 16 /min Systolic Blood Pressure : 106 mmHg Diastolic Blood Pressure : 69 mmHg NIBP Mean : 81 mmHg BP Location : Left upper extremity Blood Pressure Cuff Size : Regular Height : 170 cm(Converted to: 5 ft 7 inch(es), 67 inch(es)) Actual Weight : 81.5 kg(Converted to: 179 lb 11 oz) Weight Source : Standing scale Dosing Weight Clinic : 81.5 kg Clinic BSA : 1.96 Body Mass Index : 28.2 kg/m2 EUSEBIO CAMACHO RETIREMENT CONSULTANT - 05/09/2015 14:23 CDT General Info Information Given By : Patient Preferred Communication Mode : Verbal, Written Languages : [place] Is Patient Female and 13-50 no hysterectomy : No EUSEBIO CAMACHO RETIREMENT CONSULTANT - 05/09/2015 14:23 CDT Subjective Pain Symptoms : Yes EUSEBIO CAMACHO RETIREMENT CONSULTANT - 05/09/2015 14:23 CDT Pain Scale Pain Scale Verbal 0-10 : Open EUSEBIO CAMACHO ROBIN - 05/09/2015 14:23 CDT Pain Pain Assessment Grid Pain 1 Location : Abdomen (Comment: upper quadrants [EUSEBIO CAMACHO RETIREMENT CONSULTANT - 05/09/2015 14:23 CDT] ) EUSEBIO CAMACHO RETIREMENT CONSULTANT - 05/09/2015 14:23 CDT Dependent Habits Tobacco Use/Currently Using : No Tobacco Use/Last 12 months : No Exposure to Tobacco Smoke : Other: never Smoking Status : Never smoker EUSEBIO CAMACHO ROBIN - 05/09/2015 14:23 CDT Caffeine Use Grid Caffeine Use : Current Type : Coffee Frequency : Daily Amount : 2 cups EUSEBIO CAMACHO RETIREMENT CONSULTANT - 05/09/2015 14:23 CDT Recreational Drug Use Grid Drug Use : None EUSEBIO CAMACHO ROBIN - 05/09/2015 14:23 CDT Source: [facility] POWERCHART Document Id: [id number] CDT!43 documented in this encounter Plan of Treatment Upcoming Encounters Date Type Specialty Care Team Description 11/01/2022 Office Visit Urology Regina Black APRN, C.N.P. [address] [phone] (Wo rk) documented as of this encounter Procedures Procedure Name Priority Date/Time Associated Diagnosis Comme nts HEPATIC FUNCTION Routine 05/09/2015 3:17 PM Resul ts for this PANEL, S CDT procedure are i n the results section. AUTOMATED Routine 05/09/2015 3:17 PM Results f or this DIFFERENTIAL, B CDT procedure ar e in the results section. CBC WITH Routine 05/09/2015 3:17 PM Results f or this DIFFERENTIAL, B CDT procedure ar e in the results section. BASIC METABOLIC Routine 05/09/2015 3:17 PM Result s for this PANEL, S/P CDT procedure are i n the results section. documented in this encounter Results Automated Differential (05/09/2015 3:17 PM CDT) P athologist Signature Absolute 4.06 1.70 - POWERCHART Neutrophils 7.00 109L Lymphocytes 1.98 0.90 - POWERCHART 2.90 X109L Monocytes 0.51 0.30 - POWERCHART 0.90 X109L Eosinophils 0.20 0.05 - POWERCHART 0.50 X109L Absolute 0.04 0.00 - POWERCHART Basophil 0.30 X109L Specimen Anatomical Collection Method Collection Time Receive d Time (Source) Location / / Volume Laterality Blood 05/09/2015 3:17 PM 5 3:17 CDT PM CDT Fortino Alarcon M.D. LAB BLOOD ADD-ON Performing Organization Address City/State/ZIP Code Phon e Number POWERCHART CBC with Differential (05/09/2015 3:17 PM CDT) athologist Signature Leukocytes 6.8 3.4 - 10.5 POWERCHART X109L Erythrocytes 4.53 3.90 - 5.03 POWERCHART [id number] Hemoglobin 14.1 12.0 - 15.5 POWERCHART GDL Hematocrit 42.0 34.9 - 44.5 POWERCHART MCV 92.7 82.0 - 98.0 POWERCHART FL HX RDW 12.5 11.9 - 15.5 POWERCHART Platelet Count 287 150 - 450 POWERCHART X109L Specimen (Source) Anatomical Collection Method Collection Time Re ceived Time Location / / Volume Laterality Blood 05/09/2015 3:17 PM CDT Fortino Alarcon M.D. LAB BLOOD ADD-ON Performing Organization Address City/State/ZIP Code Phon e Number POWERCHART Hepatic Function Panel (05/09/2015 3:17 PM CDT) Patholo gist Method Time Signature Alkaline 95 46 - 118 POWERCHART Phosphatase, S UNITL Alanine 39 7 - 45 POWERCHART Amniotransferase, LD UNITL Aspartate 25 8 - 43 POWERCHART Aminotransferase UNITL (AST), S Bilirubin, Direct, S <0.20 <=0.30 POWERCHAR T MGDL Bilirubin, Total, S 0.3 0.1 - 1.0 POWERCHART MGDL Total Protein, S 6.9 6.3 - 7.9 POWERCHART GDL Albumin, S 4.5 3.2 - 5.2 POWERCHART GDL HXGlobulin 2 POWERCHART Specimen (Source) Anatomical Collection Method Collection Time Re ceived Time Location / / Volume Laterality Blood 05/09/2015 3:17 PM CDT [facility] Daina M.Irma LAB BLOOD ADD-ON Performing Organization Address City/[facility] Phon e Number POWERCHART BMP (Basic Metabolic Panel) (05/09/2015 3:17 PM CDT) P athologist Signature BUN (Blood Urea 10 6 - 21 POWERCHART Nitrogen), S MGDL Chloride, S 102 98 - 107 POWERCHART MMOLL CO2 Total 28 22 - 29 POWERCHART MMOLL Creatinine 0.7 0.6 - 1.1 POWERCHART MGDL Glucose 87 70 - 139 POWERCHART MGDL Calcium, Total, 10.2 8.0 - 10.3 POWERCHART S MGDL Sodium, S 140 135 - 145 POWERCHART MMOLL Potassium, S 4.9 3.6 - 5.2 POWERCHART MMOLL HXeGFR (MDRD) >60 >=60 POWERCHART [id number] eGFR >60 >=60 POWERCHART Black/ [id number] [place] Specimen (Source) Anatomical Collection Method Collection Time Re ceived Time Location / / Volume Laterality Blood 05/09/2015 3:17 PM CDT [facility] M.Aysha. LAB BLOOD ADD-ON Performing Organization Address City/[facility]/ZIP Code Phon e Number POWERCHART documented in this encounter Visit Diagnoses Not on filedocumented in this encounter
--- OUTSIDE RECORDS SUMMARY | 2022-09-22 13:38 | XMS_ITS | Encounter Summary ---
:1955 Author Organization [facility] Address [address] [place] [address] Care Team Providers Name Role Phone Unavailable Primary Care Provider Unavailable Encounter Details Date Type Department Care Team Description 03/17/2015 - Hospital Encounter HX RST HEM FLOOR [facility], 03/24/2015 PRACTICE [place] [address] [place] [phone] Social History Tobacco Use Types Packs/Day Years [...] er 09/12/2022 How often do you attend alevism or faith services? Never 05/13/2019 Do you belong to any clubs or organizations such as alevism N o 09/12/2022 groups, unions, fraternal or [...] Date Recorded Female 11/29/2017 6:36 PM DIRECTOR TRANSITION documented as of this encounter Medications at [...] Visit Urology Regina Black, DIANN, C.N.P. [address] [phone] (Wo rk) documented as of this encounter Visit Diagnoses Not on filedocumented in this encounter
--- OUTSIDE RECORDS SUMMARY | 2022-09-22 13:38 | XMS_ITS | Encounter Summary ---
:1955 Author Organization [facility] Address [address] [place] [address] Care Team Providers Name Role Phone Unavailable Primary Care Provider Unavailable Encounter Details Date Type Department Care Team Description 11/25/2014 Hospital Encounter HX NO MAPPING Social History [...] How often do you attend mu-ism or hindu services? 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 [address] [phone] (Wo rk) documented as of this encounter Visit Diagnoses Not on filedocumented in this encounter
--- OUTSIDE RECORDS SUMMARY | 2022-09-22 13:38 | XMS_ITS | Encounter Summary ---
:1955 Author Organization [facility] Address [address] [place] [address] Care Team Providers Name Role Phone Niecy Herrera M.D., M.P.H. Primary Care Provider [phone] Encounter Details Date Type Department Care Team Description 01/23/2015 Historical Ophthalmology [facility] Adalid Acevedo Jr., M.D. [address] [place], [place] [phone] (Wo rk) Social History [...] How often do you attend religion or voodoo services? 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 - 01/23/2015 10:05 AM CDT Eye General CHIEF COMPLAINT Pt here for complete eye exam HISTORY OF PRESENT ILLNESS Pt has noticed some trouble with rdg IMPRESSION / REPORT / PLAN A) Myopia, exotropia P) RTO 1 year, new MR CDM Reports - EYEGEN Id: [id number] Status: Fnl documented in this encounter Plan of Treatment Upcoming Encounters Date Type Specialty Care Team Description 11/01/2022 Office Visit Urology Regina Black, SALES AND MARKETING SPECIALIST, C.N.P. [address] [place], [place] [phone] (Wo rk) documented as of this encounter Visit Diagnoses Not on filedocumented in this encounter Care Teams Lead Housekeeper Relationship Specialty Start Date End Date Niecy Herrera M.D., M.P.H. PCP - General 08/15/[address] [place] [phone] documented as of this encounter
--- OUTSIDE RECORDS SUMMARY | 2022-09-22 13:38 | XMS_ITS | Encounter Summary ---
:1955 Author Organization [facility] Address [address] [place] [id number] Care Team Providers Name Role Phone Unavailable Primary Care Provider Unavailable Encounter Details Date Type Department Care Team Description 12/02/2014 - Hospital Encounter HX RST INFUSION Khan, Stephenie Jacobs, 12/09/2014 THERAPY R.N., O.C.N. Social History Tobacco Use Types Packs/Day Years [...] How often do you attend scientologist or latter-day services? Never 05/13/2019 Do you [...] at Date Recorded Female 11/29/2017 6:36 PM SUPERVISOR FACEPIECE LINE documented as of this encounter Last Filed Vital Signs Vital Sign Reading Time Taken Comments Blood Pressure 103/50 12/02/2014 2:46 PM SUPERVISOR FACEPIECE LINE Pulse 66 12/02/2014 2:46 PM SUPERVISOR FACEPIECE LINE Temperature - - Respiratory Rate 16 12/02/2014 2:46 PM SUPERVISOR FACEPIECE LINE Oxygen Saturation - - Inhaled Oxygen Concentration [...] Urology Regina Black, DIANN, C.N.P. [address] [place] [phone] (Wo rk) documented as of this encounter Visit Diagnoses Not on filedocumented in this encounter
--- OUTSIDE RECORDS SUMMARY | 2022-09-22 13:38 | XMS_ITS | Encounter Summary ---
:1955 Author Organization [facility] Address [address] [place] [address] Care Team Providers Name Role Phone Unavailable Primary Care Provider Unavailable Encounter Details Date Type Department Care Team Description 04/24/2015 Hospital Encounter HX [facility] FB Adalid Su Jr., M.D. 0 [place], [place] [phone] (Wo rk) Social History [...] How often do you attend yazidi or zoroastrianism services? 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 - 04/24/2015 9:31 AM CDT [id number] The documentation for this visit is available in Synthesis IMPRESSION/REPORT/PLAN A) Dry eyes P) Fresnel prism, tears, tear ointment, collagen plugs today, rto when fresnel in. Adalid Acevedo M.D./farooq Electronically Signed By: ADALID ACEVEDO MD On: 04/30/2015 01:12 PM Source: [facility] MHSDOLBEYNONRADSYS Document Id: [id number] documented in this encounter Miscellaneous Notes Miscellaneous - Adalid Acevedo M.D. - 04/24/2015 9:59 AM CDT Ambulatory Discharge Medication List [address], [place] [id number] Visit Information Name: ALFREDO OLIVEROS [facility] Number: [id number] Visit Date: 04/24/2015 09:59:27 Attending Provider: ADALID ACEVEDO MD Primary Care Provider: CINDY ALARCON MD ALFREDO OLIVEROS has been given [...] cap, Oral, once a day One by [place] omega-3 polyunsaturated fatty acids (Fish Oil oral capsule) 1 cap, Oral, once a day ranitidine (Zantac 75) 75 mg, Oral, two times a day as needed Stop Taking the Following Medications: Medication list as of 04-24-15 09:59 Attention: If you have any medications at home that are not on this list, DO NOT take them until youcontact your provider for clarification. Give a copy of your medication list to your primary care provider. Update your medication list any time medications or doses are changed and carry your medication list at all times in case of emergency. Electronically Signed By: ADALID ACEVEDO MD Signed On:24-APR-2015 09:59:12 Additional Information: Source: [facility] POWERCHART Document Id: [id number] Miscellaneous - Adalid Acevedo M.D. - 04/24/2015 9:59 AM CDT Ambulatory Patient Summary [address], [place] [id number] Visit Information Name: ALFREDO OLIVEROS [facility] Number: [id number] Current Date: 04/24/2015 09:59:28 Physicians Attending Provider: ADALID ACEVEDO MD Primary Care Provider: CINDY ALARCON MD ALFREDO OLIVEROS has been given [...] cap, Oral, once a day One by [place] omega-3 polyunsaturated fatty acids (Fish Oil oral capsule) 1 cap, Oral, once a day ranitidine (Zantac 75) 75 mg, Oral, two times a day as needed Stop Taking the Following Medications: Medication list as of 04-24-15 09:59 Attention: If you have any medications at home that are not on this list, DO NOT take them until youcontact your provider for clarification. Give a copy of your medication list to your primary care provider. Update your medication list any time medications or doses are changed and carry your medication list at all times in case of emergency. Electronically Signed By: ADALID ACEVEDO MD Signed On:24-APR-2015 09:59:12 Your Allergies & Intolerances Substance Reaction Symptoms [...] (IFG) Fasting Glucose Active Hyperlipidemia, Borderline per [facility] Active Your Upcoming Appointments Date Time Location Provider 01/12/2016 08:45 [facility] Cindy Alarcon MD Attention: Contact your local Clinic if further appointment detail needed. Your Goals/Additional instructions: Source: [facility] POWERCHART Document Id: [id number] documented in this encounter Plan of Treatment Upcoming Encounters Date Type Specialty Care Team Description 11/01/2022 Office Visit Urology Regina Black, DIANN, C.N.P. [address] [phone] (Wo rk) documented as of this encounter Visit Diagnoses Not on filedocumented in this encounter
--- OUTSIDE RECORDS SUMMARY | 2022-09-22 13:38 | XMS_ITS | Encounter Summary ---
:1955 Author Organization [facility] Address [address] [place] [address] Care Team Providers Name Role Phone Unavailable Primary Care Provider Unavailable Encounter Details Date Type Department Care Team Description 09/26/2014 Hospital Encounter HX [facility] FB LAB Cindy Alarcon M.D. 151 [facility], [facility] [address] [place] [phone] Social History Tobacco Use Types Packs/Day [...] How often do you attend adventism or yazdanism services? 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 [address] [place] [phone] (Wo rk) documented as of this encounter Procedures Procedure Name Priority Date/Time Associated Diagnosis Comme nts AUTOMATED Routine 09/26/2014 10:22 AM Results for this DIFFERENTIAL, B DRAGLINE ENGINEER procedure ar e in the results section. CBC WITH Routine 09/26/2014 10:22 AM Results for this DIFFERENTIAL, B DRAGLINE ENGINEER procedure ar e in the results section. documented in this encounter Results Automated Differential (09/26/2014 10:22 AM DRAGLINE ENGINEER) P athologist Signature Absolute 4.08 1.70 - POWERCHART Neutrophils 7.00 109L Lymphocytes 1.65 0.90 - POWERCHART 2.90 X109L Monocytes 0.82 0.30 - POWERCHART 0.90 X109L Eosinophils 0.16 0.05 - POWERCHART 0.50 X109L Absolute 0.04 0.00 - POWERCHART Basophil 0.30 X109L Specimen Anatomical Collection Method Collection Time Receive d Time (Source) Location / / Volume Laterality Blood 09/26/2014 10:22 09/26/2014 AM DRAGLINE ENGINEER 10:22 AM DRAGLINE ENGINEER Cindy Alarcon M.D. LAB BLOOD ADD-ON Performing Organization Address City/State/ZIP Code Phon e Number POWERCHART (ABNORMAL) CBC with Differential (09/26/2014 10:22 AM DRAGLINE ENGINEER) [facility] gist Method Time Signature Leukocytes 6.8 3.4 - 10.5 POWERCHART X109L Erythrocytes 3.93 3.90 - POWERCHART 5.03 [id number] Hemoglobin 11.0 (L) 12.0 - POWERCHART 15.5 GDL Hematocrit 34.6 (L) 34.9 - POWERCHART 44.5 MCV 88.0 82.0 - POWERCHART 98.0 [place] Platelet Count 334 150 - 450 POWERCHART X109L HX RDW 15.0 11.9 - POWERCHART 15.5 HXDifferential? Auto POWERCHART Specimen (Source) Anatomical Collection Method Collection Time Re ceived Time Location / / Volume Laterality Blood 09/26/2014 10:22 AM DRAGLINE ENGINEER Cindy Alarcon M.D. LAB BLOOD ADD-ON Performing Organization Address City/State/ZIP Code Phon e Number POWERCHART documented in this encounter Visit Diagnoses Not on filedocumented in this encounter
--- OUTSIDE RECORDS SUMMARY | 2022-09-22 13:38 | XMS_ITS | Encounter Summary ---
:1955 Author Organization [facility] Address [address] [place] [address] Care Team Providers Name Role Phone Unavailable Primary Care Provider Unavailable Encounter Details Date Type Department Care Team Description 01/23/2015 Hospital Encounter HX [facility] FB Adalid Su Jr., M.D. 0 [place], [place] [phone] (Wo rk) Social History [...] How often do you attend jew or baptist services? 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 - 01/23/2015 9:29 AM CDT [id number] The documentation for this visit is available in Synthesis IMPRESSION/REPORT/PLAN A) Myopia, exotropia P) RTO 1 year, new MR Adalid Barton Pepper Acevedo/wilmer Electronically Signed By: ADALID ACEVEDO MD On: 01/30/2015 10:03 AM Source: [facility] MHSDOLBEYNONRADSYS Document Id: [id number] documented in this encounter Miscellaneous Notes Miscellaneous - Adalid Acevedo M.D. - 01/23/2015 10:14 AM CDT Ambulatory Patient Summary [address] [place] [id number] Visit Information Name: ALFREDO OLIVEROS [facility] Number: [id number] Current Date: 01/23/2015 10:14:12 Physicians Attending Provider: ADALID ACEVEDO MD Primary Care Provider: FORTINO ALARCON MD [...] cap, Oral, once a day One by [place] omega-3 polyunsaturated fatty acids (Fish Oil oral capsule) 1 cap, Oral, once a day ranitidine (Zantac 75) 75 mg, Oral, two times a day as needed Stop Taking the Following Medications: Medication list as of 01-23-15 10:14 Attention: If you have any medications at [...] Electronically Signed By: ADALID ACEVEDO MD Signed On:23-JAN-2015 10:14:05 Your Allergies & Intolerances Substance Reaction Symptoms [...] (IFG) Fasting Glucose Active Hyperlipidemia, Borderline per [facility] Active Your Upcoming Appointments Date Time Location Provider 01/12/2016 08:40 [facility] Fortino Alarcon MD Attention: Contact your local Clinic if further appointment detail needed. Your Goals/Additional instructions: Source: [facility] POWERCHART Document Id: [id number] Miscellaneous - Adalid Acevedo M.D. - 01/23/2015 10:14 AM CDT Ambulatory Discharge Medication List [address] [id number] Visit Information Name: ALFREDO OLIVEROS [facility] Number: [id number] Visit Date: 01/23/2015 10:14:12 Attending Provider: ADALID ACEVEDO MD Primary Care Provider: FORTINO ALARCON MD [...] cap, Oral, once a day One by [place] omega-3 polyunsaturated fatty acids (Fish Oil oral capsule) 1 cap, Oral, once a day ranitidine (Zantac 75) 75 mg, Oral, two times a day as needed Stop Taking the Following Medications: Medication list as of 01-23-15 10:14 Attention: If you have any medications at [...] Electronically Signed By: ADALID ACEVEDO MD Signed On:23-JAN-2015 10:14:05 Additional Information: Source: [facility] POWERCHART Document Id: [id number] documented in this encounter Plan of Treatment Upcoming Encounters Date Type Specialty Care Team Description 11/01/2022 Office Visit Urology Regina Black, DIANN, C.N.P. [address] [phone] (Wo rk) documented as of this encounter Visit Diagnoses Not on filedocumented in this encounter
--- OUTSIDE RECORDS SUMMARY | 2022-09-22 13:38 | XMS_ITS | Encounter Summary ---
:1955 Author Organization [facility] Address [address] [place] [address] Care Team Providers Name Role Phone Niecy Herrera M.D., M.P.H. Primary Care Provider [phone] Encounter Details Date Type Department Care Team Description 04/24/2015 Historical Ophthalmology [facility] OPH Adalid Acevedo Jr., M.D. 0 [place], [place] [phone] (Wo rk) Social History [...] er 09/12/2022 How often do you attend confucianist or yazdanism services? 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 CDM Reports - EYEGEN Id: [id number] Status: Fnl documented in this encounter Plan of Treatment Upcoming Encounters Date Type Specialty Care Team Description 11/01/2022 Office Visit Urology Regina Black, DIANN, C.N.P. [address] [place], [place] [phone] (Wo rk) documented as of this encounter Visit Diagnoses Not on filedocumented in this encounter Care Teams Water Quality Analyst Relationship Specialty Start Date End Date Niecy Herrera M.D., M.P.H. PCP - General 08/15/20 [address] [place] [phone] documented as of this encounter
--- OUTSIDE RECORDS SUMMARY | 2022-09-22 13:38 | XMS_ITS | Encounter Summary ---
:1955 Author Organization [facility] Address [address] [place] [address] Care Team Providers Name Role Phone Unavailable Primary Care Provider Unavailable Encounter Details Date Type Department Care Team Description 09/12/2014 Hospital Encounter HX [facility] FB LAB Fortino Alarcon M.D. 1519 [facility], [facility] [address] [place] [phone] Social History Tobacco Use Types Packs/Day [...] How often do you attend rastafarian or baptism services? 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 documented as of this encounter Miscellaneous Notes Miscellaneous - Fortino Alarcon M.D. - 09/12/2014 6:14 PM CDT Lab from 09/12/2014 From: FORTINO ALARCON MD To: ALFREDO OLIVEROS Sent: 09/12/2014 18:14:44 CDT Subject: Lab from 09/12/2014 Actions: Notify patient of results Blood count is normal. No anemia. Results: Date Result Name Value Ref Range 09/12/2014 08:58 Hgb 12.1 g/dL (12.0 - 15.5) 09/12/2014 08:58 Hct 38.5 % (34.9 - 44.5) 09/12/2014 08:58 WBC 6.2 x10(9)/L (3.4 - 10.5) 09/12/2014 08:58 RBC 4.45 x10(12)/L (3.90 - 5.03) 09/12/2014 08:58 MCV 86.5 fL (82.0 - 98.0) 09/12/2014 08:58 RDW 15.3 % (11.9 - 15.5) 09/12/2014 08:58 Platelet 396 x10(9)/L (150 - 450) 09/12/2014 08:58 Neutro Absolute 4.06 10(9)/L (1.70 - 7.00) 09/12/2014 08:58 Lymph Absolute 1.28 x10(9)/L (0.90 - 2.90) 09/12/2014 08:58 [place] Absolute 0.64 x10(9)/L (0.30 - 0.90) 09/12/2014 08:58 Eos Absolute 0.16 x10(9)/L (0.05 - 0.50) 09/12/2014 08:58 Baso Absolute 0.02 x10(9)/L (0.00 - 0.30) 09/12/2014 08:58 Differential? Auto Source: [facility] POWERCHART Document Id: [id number] Electronically signed by Conversion, [facility] Business Management Specialist [id number] at 04/12/2017 2:19 AM CDT documented in this encounter Plan of Treatment Upcoming Encounters Date Type Specialty Care Team Description 11/01/2022 Office Visit Urology Regina Black, DIANN, C.N.P. [address] [place] [phone] (Wo rk) documented as of this encounter Procedures Procedure Name Priority Date/Time Associated Diagnosis Comme nts AUTOMATED Routine 09/12/2014 8:58 AM Results f or this DIFFERENTIAL, B CDT procedure ar e in the results section. CBC WITH Routine 09/12/2014 8:58 AM Results f or this DIFFERENTIAL, B CDT procedure ar e in the results section. documented in this encounter Results Automated Differential (09/12/2014 8:58 AM CDT) P athologist Signature Absolute 4.06 1.70 - POWERCHART Neutrophils 7.00 109L Lymphocytes 1.28 0.90 - POWERCHART 2.90 X109L Monocytes 0.64 0.30 - POWERCHART 0.90 X109L Eosinophils 0.16 0.05 - POWERCHART 0.50 X109L Absolute 0.02 0.00 - POWERCHART Basophil 0.30 X109L Specimen Anatomical Collection Method Collection Time Receive d Time (Source) Location / / Volume Laterality Blood 09/12/2014 8:58 AM 4 8:58 CDT AM CDT Phunt Phyo M.D. LAB BLOOD ADD-ON Performing Organization Address City/State/ZIP Code Phon e Number POWERCHART CBC with Differential (09/12/2014 8:58 AM CDT) P athologist Signature Leukocytes 6.2 3.4 - 10.5 POWERCHART X109L Erythrocytes 4.45 3.90 - POWERCHART 5.03 [id number] Hemoglobin 12.1 12.0 - POWERCHART 15.5 GDL Hematocrit 38.5 34.9 - POWERCHART 44.5 MCV 86.5 82.0 - POWERCHART 98.0 [place] Platelet Count 396 150 - 450 POWERCHART X109L HX RDW 15.3 11.9 - POWERCHART 15.5 HXDifferential? Auto POWERCHART Specimen (Source) Anatomical Collection Method Collection Time Re ceived Time Location / / Volume Laterality Blood 09/12/2014 8:58 AM CDT Fortino Alarcon M.D. LAB BLOOD ADD-ON Performing Organization Address City/State/ZIP Code Phon e Number POWERCHART documented in this encounter Visit Diagnoses Not on filedocumented in this encounter
--- OUTSIDE RECORDS SUMMARY | 2022-09-22 13:39 | XMS_ITS | Encounter Summary ---
:1955 Author Organization [facility] Address [address] [place] [address] Care Team Providers Name Role Phone Unavailable Primary Care Provider Unavailable Encounter Details Date Type Department Care Team Description 08/01/2014 Hospital Encounter HX [facility] FB LAB Fortino Alarcon M.D. 1515 [facility], [facility] [address] [place] [phone] Social History Tobacco Use Types Packs/Day [...] er 09/12/2022 How often do you attend buddhist or evangelical services? 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 - 08/05/2014 12:29 PM CDT Urine for abnormal protein From: FORTINO ALARCON MD To: ALFREDO OLIVEROS Sent: 08/05/2014 12:29:13 CDT Subject: Urine for abnormal protein Actions: Notify patient of results There is no abnormal protein in urine, which is good. Results: Date Result Name Value Ref Range 08/01/2014 10:04 Ur Protein Conc-[place] 4 mg/dL 08/01/2014 10:04 U24 Protein-[place] 47 mg/24hr (<167 - ) 08/01/2014 10:04 U Pro El Impress-[place] See Comment 08/01/2014 10:04 U Albumin-[place] 100 % 08/01/2014 10:04 TV Protein-[place]ers 1,175 mL 08/01/2014 10:04 Hrs Protein-Sanders 24 HR Source: [facility] POWERCHART Document Id: [id number] Electronically signed by Conversion, [facility] Wire Frame Dipper [id number] at 04/12/2017 6:56 PM CDT documented in this encounter Plan of Treatment Upcoming Encounters Date Type Specialty Care Team Description 11/01/2022 Office Visit Urology Regina Black, MASH FILTER OPERATOR, C.N.P. [address], [place] [phone] (Wo rk) documented as of this encounter Procedures Procedure Name Priority Date/Time Associated Diagnosis Comme nts ELECTROPHORESIS, Routine 08/01/2014 10:04 AM Resu lts for this PROTEIN, 24 HR, U CDT procedure are in the results section. documented in this encounter Results Electrophoresis, Protein, 24 Hour, Urine (08/01/2014 10:04 AM CDT) P athologist Signature Predicted 24 Hr 47 <167 MG24HR POWERCHART Protein Comment: On 05/27/2014 the total protein assay me thod changed resulting in approximately a 20% increas e in protein values. Collection Duration 24 HR POWERCHART HXTV Protein-[place] 1175 ML POWERCHART TP Concentration 4 MGDL POWERCHART HX U Albumin-[place] 100 POWERCHART HX U Pro El Impress-[place] See Comment POW ERCHART Comment: RESULT: Albumin is the only protein dete cted. Test Performed by: [facility] [place] [address] Master Fire Control Technician: Wesly peraza III, M.D. Specimen (Source) Anatomical Collection Method Collection Time Re ceived Time Location / / Volume Laterality Urine 08/01/2014 10:04 AM CDT Fortino Alarcon M.D. LAB URINE ORDERABLES Performing Organization Address City/State/ZIP Code Phon e Number POWERCHART documented in this encounter Visit Diagnoses Not on filedocumented in this encounter
--- OUTSIDE RECORDS SUMMARY | 2022-09-22 13:39 | XMS_ITS | Encounter Summary ---
:1955 Author Organization [facility] Address [address] [place] [address] Care Team Providers Name Role Phone Unavailable Primary Care Provider Unavailable Encounter Details Date Type Department Care Team Description 08/12/2014 Hospital Encounter HX [facility] Fortino Alarcon M.D. [address] [facility], [facility] [address] [phone] Social History Tobacco Use Types Packs/Day [...] How often do you attend sikhism or yazidism services? 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 documented as of this encounter Miscellaneous Notes Telephone Encounter - Conversion, Historical Provider Ser - 08/23/2014 11:56 AM CDT *Phone Message Document Contains Addenda Addendum by YG MAHMOOD on 23 August 2014 14:26:23 CDT patient notified to go to ER. Addendum by FORTINO ALARCON MD on 23 August 2014 14:11:00 CDT From: FORTINO ALARCON MD To: Dorian Nurse; Sent: 08/23/2014 14:11:00 CDT ! Subject: RE: *Phone Message Actions: Notify patient- refer to General Message, Notify patient of Future Order She should go to emergency room for evaluation. Addendum by SANDY DAILY on 23 August 2014 13:59:12 CDT From: SANDY DAILY ([facility] Nurse) To: FORTINO ALARCON MD; Sent: 08/23/2014 13:59:12 CDT Subject: FW: *Phone Message Addendum by SANDY DAILY on 23 August 2014 13:59:03 CDT Patient began having pains at about 3am this morning; pain is dull and the area is tender to the touch; states she has had a temperature of 101.4 today. Has been taking Tylenol which is helping a little but the pain is still noticeably there. From: NICO RIVERA ( [employer] Validator) To: KEDAR Alarcon Nurse; Sent: 08/23/2014 11:56:01 CDT Subject: *Phone Message Caller is: ( c ) Patient ( ) Mother ( ) Father ( ) Spouse ( ) Daughter ( ) Son ( ) Pharmacy ( ) Other: Physician: Patient MRN #: Reason for Call: S: Patient is experiencing lower right abdominal pain B: Patient had a colonoscopy yesterday. A: R: Please call patient [phone] Message: Advice/Action: Source used: ( ) Verbalizes [...] back cell phone number ( ) Source: [facility] [employer] Document Id: [id number] Telephone Encounter - Justus Lemus, C.MJuanchoAJuancho - 08/20/2014 9:40 AM CDT FW: Lab from 08/12/2014 Document Contains Addenda Addendum by JUSTUS LEMUS CMA on 27 August 2014 08:55:50 CDT From: JUSTUS LEMUS CMA ( Internal Medicine Nurse) To: ALFREDO OLIVEROS Sent: 08/27/2014 08:55:50 CDT Subject: RE: Lab from 08/12/2014 Addendum by FORTINO ALARCON MD on 20 August 2014 09:49:06 CDT From: FORTINO ALARCON MD To: Internal Medicine Nurse; ALFREDO OLIVEROS Sent: 08/20/2014 09:49:06 CDT Subject: RE: Lab from 08/12/2014 Actions: Notify patient of results If it was not fasting blood, this level of blood glucose is OK. From: JUSTUS LEMUS CMA ( Internal Medicine Nurse) To: FORTINO ALARCON MD; Sent: 08/20/2014 09:40:42 CDT Subject: FW: Lab from 08/12/2014 From: ALFREDO OLIVEROS To: [facility] ( Internal Medicine Nurse) Sent: 08/17/2014 12:20 p.m. CDT Subject: RE: Lab from 08/12/2014 Thank you for your message. It has been successfully sent to the appropriate care team. I was not fasting for this test. Was told by pantograph ii engraver I did not need to be fasting. From: FORTINO ALARCON MD To: ALFREDO OLIVEROS Sent: 08/17/2014 11:51:53 CDT Subject: Lab from 08/12/2014 Actions: Notify patient of results Tests for electrolytes and kidney function are normal. Glucose is slightly high. Is it fasting bloodtest? Thank you. PP Results: Date Result Name Value Ref Range 08/12/2014 09:15 Sodium Lvl 137 mmol/L (135 - 145) 08/12/2014 09:15 Potassium Lvl 4.7 mmol/L (3.5 - 4.8) 08/12/2014 09:15 Chloride 101 mmol/L (100 - 108) 08/12/2014 09:15 CO2 25 mmol/L (22 - 30) 08/12/2014 09:15 Glucose Lvl 123 08/12/2014 09:15 Creatinine 0.8 mg/dL (0.7 - 1.2) 08/12/2014 09:15 EGFR (MDRD) >60 mL/min 08/12/2014 09:15 EGFR (MDRD) >60 mL/min 08/12/2014 09:15 BUN 14 mg/dL (6 - 20) 08/12/2014 09:15 Calcium Lvl 8.7 mg/dL (8.5 - 10.5) Source: [facility] [employer] Document Id: [id number] Electronically signed by Conversion, [facility] [employer] [id number] at 04/12/2017 6:56 PM CDT Miscellaneous - Fortino Alarcon M.D. - 08/17/2014 11:51 AM CDT Lab from 08/12/2014 From: FORTINO ALARCON MD To: ALFREDO OLIVEROS Sent: 08/17/2014 11:51:53 CDT Subject: Lab from 08/12/2014 Actions: Notify patient of results Tests for electrolytes and kidney function are normal. Glucose is slightly high. Is it fasting bloodtest? Thank you. PP Results: Date Result Name Value Ref Range 08/12/2014 09:15 Sodium Lvl 137 mmol/L (135 - 145) 08/12/2014 09:15 Potassium Lvl 4.7 mmol/L (3.5 - 4.8) 08/12/2014 09:15 Chloride 101 mmol/L (100 - 108) 08/12/2014 09:15 CO2 25 mmol/L (22 - 30) 08/12/2014 09:15 Glucose Lvl 123 08/12/2014 09:15 Creatinine 0.8 mg/dL (0.7 - 1.2) 08/12/2014 09:15 EGFR (MDRD) >60 mL/min 08/12/2014 09:15 EGFR (MDRD) >60 mL/min 08/12/2014 09:15 BUN 14 mg/dL (6 - 20) 08/12/2014 09:15 Calcium Lvl 8.7 mg/dL (8.5 - 10.5) Source: [facility] POWERCHART Document Id: [id number] Electronically signed by Conversion, [facility] [id number] at 04/12/2017 6:56 PM CDT documented in this encounter Plan of Treatment Upcoming Encounters Date Type Specialty Care Team Description 11/01/2022 Office Visit Urology Regina Black APRN, C.N.P. [address] [place] [address] [phone] (Wo rk) documented as of this encounter Procedures Procedure Name Priority Date/Time Associated Diagnosis Comme nts BASIC METABOLIC Routine 08/12/2014 9:15 AM Result s for this PANEL, S/P CDT procedure are i n the results section. documented in this encounter Results BMP (Basic Metabolic Panel) (08/12/2014 9:15 AM CDT) P athologist Signature BUN (Blood Urea 14 6 - 20 POWERCHART Nitrogen), S MGDL Creatinine 0.8 0.7 - 1.2 POWERCHART MGDL Glucose 123 POWERCHART Potassium, S 4.7 3.5 - 4.8 POWERCHART MMOLL Sodium, S 137 135 - 145 POWERCHART MMOLL Chloride, S 101 100 - 108 POWERCHART MMOLL CO2 Total 25 22 - 30 POWERCHART MMOLL Calcium, Total, 8.7 8.5 - 10.5 POWERCHART S MGDL HXeGFR (MDRD) >60 MLMIN POWERCHART eGFR >60 MLMIN POWERCHART Black/ Specimen (Source) Anatomical Collection Method Collection Time Re ceived Time Location / / Volume Laterality Blood 08/12/2014 9:15 AM CDT Fortino Alarcon M.D. LAB BLOOD ADD-ON Performing Organization Address City/State/ZIP Code Phon e Number POWERCHART documented in this encounter Visit Diagnoses Not on filedocumented in this encounter
--- OUTSIDE RECORDS SUMMARY | 2022-09-22 13:39 | XMS_ITS | Encounter Summary ---
:1955 Author Organization [facility] Address [address] [place] [address] Care Team Providers Name Role Phone Unavailable Primary Care Provider Unavailable Encounter Details Date Type Department Care Team Description 07/08/2014 Hospital Encounter HX [facility] FB Fortino Yadav M.D. [address] [place] [address] 761 Social History Tobacco Use Types Packs/Day [...] How often do you attend muslim or orthodox services? 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 - 07/08/2014 1:30 PM CDT [id number] CHIEF COMPLAINT/ REASON FOR VISIT Fatigue, dizziness, and shortness of breath. HISTORY OF PRESENT ILLNESS Alfredo is a 58-year-old female who presents to the clinic today for the above complaints. I have not seen this patient before. She currently lives in [place]. Patient was referred to me by other patients. Her current primary physician is at [facility]. I reviewed her records that she brought from [facility] and updated her electronic medical record. I need her current records from [place]. Patient stated that she has noticed fatigue, dizziness, and shortness of breath with activity for the last six weeks. She was very tired last summer and was found to be anemic at that time. She stoppedtaking iron this past March and the symptoms began after that. She looks pale at todays visit. Patientmentioned that she occasionally feels very sleepy while driving. She snores at night and occasionally has headaches in the morning. We discussed possible etiologie, further evaluation and management. Isuggested she complete a sleep study to check for sleep apnea. Her father had a stroke at age 66. She has never smoked but grew up around second hand smoke. The patient denies any chest pain, coughing up blood or phlegm, or leg swelling. She states that shehas always had heat intolerance. There is no weight loss, change in bowel movement, or bleeding symptoms. She has occasional nausea. She mentioned that she doesnt have any sexual drive. Patient wanted me to check her hormone levels. I ordered necessary tests. Patient has a history of anxiety. She has been taking antidepressants for over 25 years. She has a hiatal hernia. The patient watches her diet closely. Patient has diverticulosis. I gave her information regarding diverticulosis. There is no family history of colon cancer. Her last colonoscopy was donein 2012. She is due for a mammogram in the fall. I advised her to see a dentist every six months and an eye doctor every year. I suggested she exercise regularly and cut back on calories, carbohydrates, and food portions. I reviewed her medication and side effects. There are no further concerns at this time. MEDICATIONS Probiotic Formula 1 capsule by mouth daily. Vitamin D3 2000 intl units 1 tablet by mouth daily. Clonazepam 1 mg by mouth three times a day. Lexapro 10 mg by mouth daily. Fish Oil 1 capsule by mouth daily. ALLERGIES Fluoxetine. Penicillin. Sulfa drug. SYSTEMS REVIEW As per the history of present illness. All other systems are reviewed and are negative. PAST MEDICAL/ SURGICAL HISTORY History of iron deficiency anemia. Anxiety. Hiatal hernia. Diverticulosis of colon. History of rosacea. History of dizziness. Fatigue. Shortness of breath. Status post removal of left breast fibroadenoma. Status post tonsillectomy. Status post D & C. Status post colonoscopy 09/2013. PREVENTIVE SERVICES Reviewed and updated as per the EMR. SOCIAL HISTORY Reviewed and updated as per the EMR. FAMILY HISTORY Bladder cancer in brother. Emphysema in mother. Hypertension in mother. Coronary artery disease and myocardial infarction in father. Stroke in father. VITAL SIGNS HEIGHT: 170.8 cm. WEIGHT: 89 kg. BMI: 30.51 kg/m2. TEMP: 36.3 Deg C. PULSE: 79 /min. RESP: 16 /min. O2SAT: 99 %. SYSTOLIC: 103 mmHg. DIASTOLIC: 60 mmHg. PHYSICAL EXAMINATION GENERAL: Patient is sitting. No distress. Able to talk without interruption. SKIN: No rash, bruise or nodules. HEAD: No facial rash, asymmetry or sinus tenderness. EYES: PERRLA. EOMI. No icterus or conjunctivitis. She has slight pallor. ENT: No nasal congestion, discharge or bleeding. There is no ear infection or discharge. No mastoid tenderness. Tongue is moist and midline. No oral lesions. LYMPH NODES: No cervical, supraclavicular, axillary, inguinal or femoral lymphadenopathy. THYROID: No thyromegaly. No thyroid thrill or bruit. PERIPHERAL VESSELS: Good radial, femoral and pedal pulses. HEART: No carotid bruit. [...] NEURO: Grossly nonfocal. IMPRESSION/ REPORT/ PLAN 1. Anemia. There was no evidence of bleeding. We discussed possible etiologies, further evaluation and management. Her dizziness, fatigue, and shortness of breath may be related to anemia. I need to review record from [place]. She will sign record release. Will get anemia workup. She may need to restart Vitrom C if there is evidence of iron deficiency anemia. If she has persistent anemia, we need to consider Hematology consultation. 2. Dizziness. She is stable from neurological standpoint. According to patient, her blood pressure is usually below normal range. Probably, her dizziness is related to anemia. 3. Fatigue. We discussed possible etiology including, but not limited to, anemia, electrolyte imbalance, thyroid disorder, and sleep apnea. She had normal TSH in April 2014. We discussed signs and symptoms of obstructive sleep apnea. Will schedule sleep study as an outpatient at [facility]. She needs to see sleep medicine specialist if she has sleep apnea. 4. Shortness of breath. She is stable from respiratory stand point. She has no hypoxemia or tachypnea. Patient had second hand smoking in the past. Will get chest x-ray. 5. Decreased libido. She would like to check hormone levels. Advised her that she many need to see Awning Maker And Installer because this is not my specialty. She would like to check testosterone level too. 6. Advanced directive. She is in the process of completing advanced directive. 7. Authorization to Disclose Protected Health Information. The patient declined to sign authorization to disclose protected health information. We discussed Patient Portal. 8. Renew medications. The following medications were renewed: Clonazepam and Lexapro. Todays studies: EKG, spirometry, chest x-ray, B12 and Folate, BMP, CBC, Estradiol level, Ferritin, HFP, Iron, Progesterone, Sed rate, Testosterone. The patient will return to the clinic in three weeks for followup. Administrative Billing 45 minutes spent with greater than 50% counseling and coordination of care. This document serves as a record of services personally performed by Dr. Fortino Alarcon. It was created on their behalf by Denny Newman, a trained medical anthropologist. The creation of this record is based on the scribe's personal observations and the provider's statements to them. This document has been checked and approved by the attending provider. Fortino Alarcon M.D./mirian Electronically Signed By: FORTINO ALARCON MD On: 07/28/2014 12:44 PM Modified by and Electronically Signed by: FORTINO ALARCON MD On: 07/28/2014 12:44 PM Source: [facility] MHSDOLBEYNONRADSYS Document Id: [id number] documented in this encounter Miscellaneous Notes Miscellaneous - Fortino Alarcon M.D. - 07/14/2014 6:54 PM CDT Normal Results Letter 14 July 2014 ALFREDO OLIVEROS [address] [facility] [id number] Dear ALFREDO OLIVEROS, I am pleased to report that your spirometry(Lung test) was normal. Please follow up with us as we discussed during your visit or sooner if you have any concerns. If you have questions or concerns, please do not hesitate to call our office. Sincerely, FORTINO ALARCON [address] [place] [address] Electronic Signature Electronically Signed By: FORTINO ALARCON MD On: 14 July 2014 This document has images extracted. Source: [employer] Document Id: [id number] Fortino Wood M.D. - 07/14/2014 6:53 PM CDT Normal Results Letter 14 July 2014 ALFREDO OLIVEROS 6 [facility] [id number] Dear ALFREDO OLIVEROS, I am pleased to report that your EKG from 07/08/2014 was normal. Please follow up with us as we discussed during your visit or sooner if you have any concerns. If you have questions or concerns, pleasedo not hesitate to call our office. Sincerely, FORTINO ALARCON [address] [place] [address] Electronic Signature Electronically Signed By: FORTINO ALARCON MD On: 14 July 2014 This document has images extracted. Source: [employer]eb Document Id: [id number] Electronically signed by Conversion, [facility] [employer]eglass Fr[employer] Polisher [id number] at 04/12/2017 7:55 PM CDT Fortino Wood M.D. - 07/11/2014 3:04 PM CDT Chest x-ray from 07/08/2014 From: FORTINO ALARCON MD To: ALFREDO OLIVEROS PABLO Sent: 07/11/2014 15:04:44 CDT Subject: Chest x-ray from 07/08/2014 Actions: Notify patient of results Chest x-ray showed large diaphragmatic hernia. Otherwise negative. Please follow up with us as we discussed during your visit or sooner if you have any concerns. If you have questions or concerns, please do not hesitate to call our office. Source: [employer] Document Id: [id number] Electronically signed by Conversion, [facility] [employer] Polisher [id number] at 04/12/2017 7:55 PM CDT Fortino Wood M.D. - 07/09/2014 11:17 AM CDT Lab from 07/08/2014 Document Contains Addenda Addendum by EUSEBIO CAMACHO LPN on 11 July 2014 09:36:48 CDT Called and went over results with patient and Dr. Alarcon's recommendations. Addendum by EUSEBIO CAMACHO LPN on 11 July 2014 08:27:40 CDT From: EUSEBIO CAMACHO LPN To: KEDAR Alarcon Nurse; Sent: 07/11/2014 08:27:40 CDT Subject: FW: Lab from 07/08/2014 From: FORTINO ALARCON MD To: EUSEBIO CAMACHO LPN; ALFREDO OLIVEROS Sent: 07/09/2014 11:17:39 CDT Subject: Lab from 07/08/2014 Actions: Notify patient of results, Notify patient of Future Order Your sodium is slightly low, but not serious. We need to recheck in 2 weeks or so. Tests for kidney function, liver, vitamin B12 and folate are normal. Ferritin is low, which should be more than 50. Please restart Vitron C 1 tablet by mouth twice a day. Blood count showed anemia. Sed rate(Test for inflammation) is normal. Results: Date Result Name Ind Value Ref Range 07/08/2014 14:52 Sodium Lvl (L) 133 mmol/L (135 - 145) 07/08/2014 14:52 Potassium Lvl 4.6 mmol/L (3.5 - 4.8) 07/08/2014 14:52 Chloride (L) 98 mmol/L (100 - 108) 07/08/2014 14:52 CO2 27 mmol/L (22 - 30) 07/08/2014 14:52 Alkaline Phosphatase 82 unit/L (50 - 130) 07/08/2014 14:52 Glucose Lvl 89 07/08/2014 14:52 Creatinine 0.7 mg/dL (0.7 - 1.2) 07/08/2014 14:52 EGFR (MDRD) >60 mL/min 07/08/2014 14:52 EGFR (MDRD) >60 mL/min 07/08/2014 14:52 BUN 16 mg/dL (6 - 20) 07/08/2014 14:52 Calcium Lvl 9.1 mg/dL (8.5 - 10.5) 07/08/2014 14:52 Protein Total 6.8 mg/dL (6.3 - 8.2) 07/08/2014 14:52 Albumin Lvl 3.8 gm/dL (3.5 - 5.0) 07/08/2014 14:52 AST 16 unit/L (8 - 43) 07/08/2014 14:52 ALT 21 unit/L (9 - 52) 07/08/2014 14:52 Bili Total 0.1 mg/dL (0.1 - 1.0) 07/08/2014 14:52 Bili Direct 0.0 mg/dL (0.0 - 0.3) 07/08/2014 14:52 Ferritin Lvl (L) <9 ng/mL (11 - 307) 07/08/2014 14:52 Vitamin B12 Lvl 592 ng/L (180 - 914) 07/08/2014 14:52 Folate Lvl >16.2 ng/mL (>=4.0 - ) 07/08/2014 14:52 Hgb (L) 9.0 g/dL (12.0 - 15.5) 07/08/2014 14:52 Hct (L) 28.4 % (34.9 - 44.5) 07/08/2014 14:52 WBC 8.0 x10(9)/L (3.4 - 10.5) 07/08/2014 14:52 RBC (L) 3.52 x10(12)/L (3.90 - 5.03) 07/08/2014 14:52 MCV (L) 80.7 fL (82.0 - 98.0) 07/08/2014 14:52 RDW 13.8 % (11.9 - 15.5) 07/08/2014 14:52 Platelet 393 x10(9)/L (150 - 450) 07/08/2014 14:52 Neutro Absolute 4.91 10(9)/L (1.70 - 7.00) 07/08/2014 14:52 Lymph Absolute 2.19 x10(9)/L (0.90 - 2.90) 07/08/2014 14:52 Darke Absolute 0.65 x10(9)/L (0.30 - 0.90) 07/08/2014 14:52 Eos Absolute 0.19 x10(9)/L (0.05 - 0.50) 07/08/2014 14:52 Baso Absolute 0.04 x10(9)/L (0.00 - 0.30) 07/08/2014 14:52 Differential? Auto 07/08/2014 14:52 Sed Rate 21 mm/hr (0 - 29) Source: [facility] POWERCHART Document Id: [id number] Electronically signed by Harpal [facility] Eyeglass Fr[employer] Polisher [id number] at 04/12/2017 7:55 PM CDT Miscellaneous - Fortino Alarcon M.D. - 07/08/2014 2:43 PM CDT Ambulatory Patient Summary [address] [id number] Visit Information Name: ALFREDO OLIVEROS [facility] Number: [id number] Current Date: 07/08/2014 14:43:14 Physicians Attending Provider: FORTINO ALARCON MD Primary [...] Oral, once a day cholecalciferol (Vitamin D3 2000 intl units oral tablet) 1 Tablet(s), Oral, once a day clonazePAM (clonazePAM 1 mg oral tablet) 1 Tablet(s), Oral, three times a day Routed to [employer] escitalopram (Lexapro 10 mg oral tablet) 1 Tablet(s), Oral, once a day Routed to [address] [address] omega-3 polyunsaturated fatty acids (Fish Oil oral capsule) 1 cap, Oral, once a day Stop Taking the Following Medications: buPROPion (Wellbutrin XL 150 mg/24 hours oral tablet, extended release) LORazepam (Ativan 0.5 mg oral tablet) metroNIDAZOLE topical (MetroLotion 0.75% topical lotion) ranitidine (Zantac 150 oral tablet) Medication list as of 07-08-14 14:43 Attention: If you have any medications at [...] Electronically Signed By: FORTINO ALARCON MD Signed On:08-JUL-2014 14:42:55 Your Allergies & Intolerances Substance Reaction Symptoms [...] Active Hernia Hiatal Active Diverticulosis Colon Active Your Upcoming Appointments Date Time Location Reason Provider No Appointments found Attention: Contact your local Clinic if further appointment detail needed. Anemia [Type Not Specified, Adult] Red blood cells carry oxygen to the tissues of the body. Anemia is a condition where the size or number of red blood cells in the body is reduced. Iron is needed to make red blood cells. The most common cause of anemia is iron deficiency. This may be due to: i) Blood loss (heavy menstrual periods or bleeding from the stomach or intestines); or, ii) Not eating enough iron-containing foods. Other causes of anemia include certain vitamin deficiencies, chronic kidney disease or certain otherchronic illnesses. Anemia causes a feeling of being tired and run down. When anemia becomes severe, the skin becomes pale and there is shortness of breath with exertion. Headaches, dizziness, leg cramps with exertion, drowsiness and fatigue are other common symptoms. Home Care: If you are having symptoms of anemia listed above: -- Do not overexert yourself. -- Talk to your doctor before flying on an airplane or traveling to high altitudes. Follow Up with your doctor as advised by our staff. Additional blood testing may be required to determine the exact cause of your anemia. If testing was done on this visit, it may take several days to get all of the results. You may call this facility or follow up with your own doctor to get the results. Get Prompt Medical Attention if any of the following occur: -- Shortness of breath or chest pain -- Worsening of dizziness, fainting -- Vomiting blood or passing red or black-colored stool ?? [id number] [facility], [address] [place] [address], [place] [address]. All rights reserved. This information is not intended as a substitute for professional medical care. Always follow your healthcare professional's instructions. Dizziness [Uncertain Cause] Dizziness is a common symptom sometimes described as lightheadedness or feeling like you are goingto faint. If it lasts for only a few seconds and is related to changes in position (such as getting up after lying or sitting for a long time), it is usually not a sign of anything serious. Dizziness that lasts for minutes to hours, or comes on for no apparent reason, may be a sign of a more serious problem (such as dehydration, a medicine reaction, disease of the heart or brain). Today's exam did not show an exact cause for your dizzy spell . Sometimes additional tests are required before a cause can be found. Therefore, it is important to follow up with your doctor if your symptoms continue. Home Care: 1) If a dizzy spell occurs and lasts more than a few seconds, lie down until it passes. If you are lying down, then you cannot hurt yourself by falling if you do faint. 2) Do not drive or operate dangerous equipment until the dizzy spells have stopped for at least 48 hours. 3) If dizzy spells occur with sudden standing, this may be a sign of mild dehydration. Drink extra fluids over the next few days. 4) If you recently started a new medicine or if you had the dose of a current medicine increased (especially blood pressure medicine), talk with the prescribing doctor about your symptoms. Dose adjustments may be needed. Follow Up with your doctor for further evaluation within the next seven days, if your symptoms continue. Get Prompt Medical Attention if any of the following occur: -- Worsening of your symptoms -- Fainting, headache or seizure -- Repeated vomiting -- Feeling like you or the room is spinning -- Chest, arm, neck, back or jaw pain -- Palpitations (the sense that your heart is fluttering or beating fast or hard) -- Shortness of breath -- Blood in vomit or stool (black or red color) -- Weakness of an arm or leg or one side of the face -- Difficulty with speech or vision ?? [id number] Dennis [facility], [address] [place] [address]. All rights reserved. This information is not intended as a substitute for professional medical care. Always follow your healthcare professional's instructions. Dyspnea (Shortness Of Breath) Shortness of Breath (also known as Dyspnea) is the sense that you can't catch your breath or can'tget enough air. Dyspnea can be caused by many different conditions such as: ?? Acute asthma attack ?? Worsening of emphysema (also called COPD) -- a lung disease that is caused by smoking ?? A mucus plug blocks a large air passage in the lung -- this can occur with emphysema or chronic bronchitis ?? Congestive Heart Failure (CHF) -- when a weak heart muscle allows excess fluid to collect in the lungs ?? Panic attacks, anxiety -- fear can cause rapid breathing (hyperventilation) ?? Pneumonia -- infection in the lung tissue ?? Exposure to toxic fumes or smoke ?? Pulmonary embolus (blood clot to the lung) Based on your visit today, the exact cause of your shortness of breath is not certain. Your tests donot show any of the serious causes of dyspnea. Sometimes, further testing is needed to find out if aserious problem exists. Therefore, it is important for you to watch for any new symptoms or worsening of your condition and follow up with your doctor as directed. Home Care: ?? When your symptoms are better, resume your usual activities. ?? If you smoke, you need to stop. Join a stop-smoking program or ask your doctor for help. Follow Up with your doctor or as advised by our staff. Get Prompt Medical Attention if any of the following occur: ?? Increasing shortness of breath or wheezing ?? Redness, pain or swelling in one leg ?? Swelling in both legs or ankles ?? Unexpected weight gain ?? Chest, arm, shoulder, neck or upper back pain ?? Dizziness, weakness or fainting ?? Palpitations (the sense that your heart is fluttering, beating fast or hard) ?? Fever of 100.4?F (38?C) or higher, or as directed by your healthcare provider ?? Cough with dark colored or bloody sputum (mucus) ?? [phone] [facility], [address] [place] [address], [place] [address]. All rights reserved. This information is not intended as a substitute for professional medical care. Always follow your healthcare professional's instructions. Your Goals/Additional instructions: Source: [facility] POWERCHART Document Id: [id number] Miscellaneous - Fortino Alarcon M.D. - 07/08/2014 2:43 PM CDT Ambulatory Discharge Medication List [address] [id number] Visit Information Name: ALFREDO OLIVEROS PABLO [facility] Number: [id number] Visit Date: 07/08/2014 14:43:13 Attending Provider: FORTINO ALARCON MD Primary Care [...] Oral, once a day cholecalciferol (Vitamin D3 2000 intl units oral tablet) 1 Tablet(s), Oral, once a day clonazePAM (clonazePAM 1 mg oral tablet) 1 Tablet(s), Oral, three times a day Routed to [place] escitalopram (Lexapro 10 mg oral tablet) 1 Tablet(s), Oral, once a day Routed to [address] [address] omega-3 polyunsaturated fatty acids (Fish Oil oral capsule) 1 cap, Oral, once a day Stop Taking the Following Medications: buPROPion (Wellbutrin XL 150 mg/24 hours oral tablet, extended release) LORazepam (Ativan 0.5 mg oral tablet) metroNIDAZOLE topical (MetroLotion 0.75% topical lotion) ranitidine (Zantac 150 oral tablet) Medication list as of 07-08-14 14:43 Attention: If you have any medications at [...] Electronically Signed By: FORTINO ALARCON MD Signed On:08-JUL-2014 14:42:55 Additional Information: Source: [facility] POWERCHART Document Id: [id number] Melodiecellheather - Fortino Alarcon M.D. - 07/08/2014 2:28 PM CDT Need sleep study at [place] Document Contains Addenda Addendum by EUSEBIO CAMACHO LPN on 09 July 2014 10:53:24 CDT Order for sleep study along with last office note faxed to [phone]. [facility] willcontact patient directly with appointment information. From: FORTINO ALARCON MD To: KEDAR Alarcon Nurse; Sent: 07/08/2014 14:28:32 CDT Subject: Need sleep study at [place] Actions: Notify patient- refer to General Message, Notify patient of Future Order Please schedule Sleep Study at [place]. Dx: Snoring, fatigue, headache, daytime sleepiness. Source: [facility] POWERCHART Document Id: [id number] Miscellaneous - Eusebio Camacho, L.P.NJuancho - 07/08/2014 1:54 PM CDT Adult Market Sales Manager Intake/History Adult Market Sales Manager Intake/History Entered On: 07/08/2014 13:57 CDT Performed On: 07/08/2014 13:54 CDT by EUSEBIO CAMACHO LPN Intake Chief Complaint : Patient has a history of anemia and has noticed fatigue and dizziness and shortness of breathe for the last six weeks Temperature Core : 36.3 DegC(Converted to: 97.3 DegF) (LOW) Apical Heart Rate : 79 /min Respiratory Rate : 16 /min Systolic Blood Pressure : 103 mmHg Diastolic Blood Pressure : 60 mmHg NIBP Mean : 74 mmHg BP Location : Right upper extremity Blood Pressure Cuff Size : Regular SpO2 : 99 % Oxygen Therapy : Room air Height : 170.8 cm(Converted to: 5 ft 7 inch(es), 67 inch(es)) Actual Weight : 89 kg(Converted to: 196 lb 3 oz) Weight Source : Standing scale Dosing Weight Clinic : 89 kg Clinic BSA : 2.05 Body Mass Index : 30.51 kg/m2 EUSEBIO CAMACHO LPN - 07/08/2014 13:54 CDT General Info Information Given By : Patient Preferred Communication Mode : Verbal, Written Languages : Turkish Is Patient Female and 13-50 no hysterectomy : No EUSEBIO CAMACHO LPN - 07/08/2014 13:54 CDT Subjective Pain Symptoms : EUSEBIO Collazo LPN - 07/08/2014 13:54 CDT Dependent Habits Tobacco Use/Currently Using : No Tobacco Use/Last 12 months : No Exposure to Tobacco Smoke : Other: never Smoking Status : Never smoker Alcohol Use : No EUSEBIO CAMACHO LPN - 07/08/2014 13:54 CDT Caffeine Use Grid Caffeine Use : Current Type : Coffee Frequency : Daily Amount : 2 cups EUSEBIO CAMACHO LPN - 07/08/2014 13:54 CDT Recreational Drug Use Grid Drug Use : None EUSEBIO CAMACHO LPN - 07/08/2014 13:54 CDT [facility] Document Id: [id number] CDT!41 Miscellaneous - Eusebio Camacho L.P.N. - 07/08/2014 1:51 PM CDT Health Assessment Health Assessment Entered On: 07/08/2014 13:52 CDT Performed On: 07/08/2014 13:51 CDT by EUSEBIO CAMACHO LPN Health Assessment Complete Health Assessment Complete or Modified : Annual Health Assessment Annual Health Assessment Completed : Yes EUSEBIO CAMACHO LPN - 07/08/2014 13:51 CDT Nutrition Nutrition Risk Factors by History Adult : None EUSEBIO CAMACHO LPN - 07/08/2014 13:51 CDT Functional Current Daily Living Assistance : None EUSEBIO CAMACHO LPN - 07/08/2014 13:51 CDT Dependent Habits Tobacco Use/Currently Using : No Tobacco Use/Last 12 months : No Exposure to Tobacco Smoke : Other: never Smoking Status : Never smoker EUSEBIO CAMACHO LPN - 07/08/2014 13:51 CDT Psychosocial Domestic Abuse Concerns : None Adventist Preference : No qualifying data available. EUSEBIO CAMACHO LPN - 07/08/2014 13:51 CDT Advance Directive Advanced Directives : No EUSEBIO CAMACHO LPN - 07/08/2014 13:51 CDT Educ Needs Learning Style Preference Adult Grid Patient : Printed materials Family : Printed materials EUSEBIO CAMACHO LPN - 07/08/2014 13:51 CDT Source: [facility] POWERCHART Document Id: [id number] documented in this encounter Plan of Treatment Upcoming Encounters Date Type Specialty Care Team Description 11/01/2022 Office Visit Urology Regina Black APRN, C.N.P. [address] [place], [place] [phone] (Wo rk) documented as of this encounter Procedures Procedure Name Priority Date/Time Associated Comments Diagnosis HEPATIC FUNCTION Routine 07/08/2014 2:52 PM Resul ts for this PANEL, S CDT procedure are i n the results section. VITAMIN B12 AND Routine 07/08/2014 2:52 PM Result s for this FOLATE, S CDT procedure are i n the results section. TESTOSTERONE, TOT, Routine 07/08/2014 2:52 PM Res ults for this BIOAVAILABLE, AND CDT procedure are in FREE, S the results section. AUTOMATED Routine 07/08/2014 2:52 PM Results f or this DIFFERENTIAL, B CDT procedure ar e in the results section. IRON AND TOT Routine 07/08/2014 2:52 PM Results f or this IRON-BINDING CAPACITY, CDT proce dure are in S/P the results section. PROGESTERONE, S Routine 07/08/2014 2:52 PM Result s for this CDT procedure are i n the results section. ESTRADIOL, S Routine 07/08/2014 2:52 PM Results f or this CDT procedure are i n the results section. SEDIMENTATION RATE, B Routine 07/08/2014 2:52 PM Results for this CDT procedure are i n the results section. CBC WITH DIFFERENTIAL, Routine 07/08/2014 2:52 PM Results for this B CDT procedure are i n the results section. FERRITIN, S Routine 07/08/2014 2:52 PM Results f or this CDT procedure are i n the results section. BASIC METABOLIC PANEL, Routine 07/08/2014 2:52 PM Results for this S/P CDT procedure are i n the results section. DX CHEST AP OR PA AND Routine 07/08/2014 2:20 PM Results for this LATERAL 2 VIEWS CDT procedure ar e in the results section. documented in this encounter Results Automated Differential (07/08/2014 2:52 PM CDT) P athologist Signature Absolute 4.91 1.70 - POWERCHART Neutrophils 7.00 109L Lymphocytes 2.19 0.90 - POWERCHART 2.90 X109L Monocytes 0.65 0.30 - POWERCHART 0.90 X109L Eosinophils 0.19 0.05 - POWERCHART 0.50 X109L Absolute 0.04 0.00 - POWERCHART Basophil 0.30 X109L Specimen Anatomical Collection Method Collection Time Receive d Time (Source) Location / / Volume Laterality Blood 07/08/2014 2:52 PM 4 2:52 CDT PM CDT Fortino Alarcon M.D. LAB BLOOD ADD-ON Performing Organization Address City/State/ZIP Code Phon e Number POWERCHART Sedimentation Rate (07/08/2014 2:52 PM CDT) Analysis Performed At Patho logist Time Signature Sedimentation 21 0 - 29 POWERCHART Rate, B MMHR Specimen (Source) Anatomical Collection Method Collection Time Re ceived Time Location / / Volume Laterality Blood 07/08/2014 2:52 PM CDT Fortino Alarcon M.D. LAB BLOOD ADD-ON Performing Organization Address City/[facility]/ZIP Code Phon e Number POWERCHART (ABNORMAL) CBC with Differential (07/08/2014 2:52 PM CDT) Patholo gist Method Time Signature Leukocytes 8.0 3.4 - 10.5 POWERCHART X109L Erythrocytes 3.52 (L) 3.90 - POWERCHART 5.03 [id number] Hemoglobin 9.0 (L) 12.0 - POWERCHART 15.5 GDL Hematocrit 28.4 (L) 34.9 - POWERCHART 44.5 MCV 80.7 (L) 82.0 - POWERCHART 98.0 FL Platelet Count 393 150 - 450 POWERCHART X109L HX RDW 13.8 11.9 - POWERCHART 15.5 HXDifferential? Auto POWERCHART Specimen (Source) Anatomical Collection Method Collection Time Re ceived Time Location / / Volume Laterality Blood 07/08/2014 2:52 PM CDT Fortino Alarcon M.DJuancho LAB BLOOD ADD-ON Performing Organization Address City/[facility]/ZIP Code Phon e Number POWERCHART Testosterone, Total, Bioavailable, and Free (07/08/2014 2:52 PM CDT) P athologist Signature Testosterone, 17 8 - 60 NGDL POWERCHART Total Comment: Testing performed by Liquid Chromatograp hy-Tandem Mass Spectrometry (LC-MS/MS). % Free Testosterone 0.3 0.3 - 1.9 NGDL POWER CHART Comment: Testing performed by Chela Castro. Testosterone, Bioavailable, S 1.9 NGDL POWERCHART Comment: -- REFERENCE VALUE -- Reference values have not been establish ed for patients who are greater than 51 years of age. Testing performed by Differential Precip itation. Test Performed by: [facility] [place] [address] Research Engineer: Wesly peraza III, M.D. Specimen (Source) Anatomical Collection Method Collection Time Re ceived Time Location / / Volume Laterality Blood 07/08/2014 2:52 PM CDT Phunt Phyo M.D. LAB BLOOD NON ADD-ON Performing Organization Address [facility] Phon e Number POWERCHART Progesterone Level (07/08/2014 2:52 PM CDT) P athologist Signature Progesterone, S 0.26 NGML POWERCHART Comment: -- REFERENCE VALUE -- Premenopausal 0.20-1.50 Follicular phase 0.80-3.00 Ovulation phase 1.70-27.00 Luteal phase Postmenopausal <0.15-0.80 Test Performed by: [place] [address] Research Engineer: Wesly peraza III, M.D. Specimen (Source) Anatomical Collection Method Collection Time Re ceived Time Location / / Volume Laterality Blood 07/08/2014 2:52 PM CDT Phforrest Phyo M.DJuancho LAB BLOOD ADD-ON Performing Organization Address [facility] Phon e Number POWERCHART Estradiol Level (07/08/2014 2:52 PM CDT) P athologist Signature Estradiol, Mass <10 PGML POWERCHART Spectrometry, S Comment: -- REFERENCE VALUE -- Premenopausal: 15-350 (E2 levels vary wi joe through the menstrual cycle.) Postmenopausal: <10 Test Performed by: [address] [address] Research Engineer: Wesly peraza III, M.D. Specimen (Source) Anatomical Collection Method Collection Time Re ceived Time Location / / Volume Laterality Blood 07/08/2014 2:52 PM CDT Phunt Phyo M.D. LAB BLOOD NON ADD-ON Performing Organization Address [facility] Phon e Number POWERCHART Vitamin B12 Level and Folate (07/08/2014 2:52 PM CDT) P athologist Signature Vitamin B12 592 180 - 914 POWERCHART Assay, S NGL Folate, S >16.2 >=4.0 NGML POWERCHART Specimen (Source) Anatomical Collection Method Collection Time Re ceived Time Location / / Volume Laterality Blood 07/08/2014 2:52 PM [facility] ADD-ON Performing Organization Address City/[facility]/ZIP Code Phon e Number POWERCHART (ABNORMAL) Iron and Total Iron-Binding Capacity (07/08/2014 2:52 PM CDT) athologist Signature Iron 14 (L) 35 - 145 POWERCHART MCGDL Total Iron 374 250 - 400 POWERCHART Binding MCGDL Capacity Percent 4 (L) 14 - 50 POWERCHART Saturation Comment: Test Performed by: [address] [address] Research Engineer: Wesly peraza III, M.D. Specimen (Source) Anatomical Collection Method Collection Time Re ceived Time Location / / Volume Laterality Blood 07/08/2014 2:52 PM CDT [facility] LAB BLOOD ADD-ON Performing Organization Address City/[facility] Code Phon e Number POWERCHART Hepatic Function Panel (07/08/2014 2:52 PM CDT) [facility] gist Method Time Signature Albumin, S 3.8 3.5 - 5.0 POWERCHART GMDL Alkaline 82 50 - 130 POWERCHART Phosphatase, S UNITL Aspartate 16 8 - 43 POWERCHART Aminotransferase UNITL (AST), S Alanine 21 9 - 52 POWERCHART Amniotransferase, LD UNITL Bilirubin, Total, S 0.1 0.1 - 1.0 POWERCHART MGDL Bilirubin, Direct, S 0.0 0.0 - 0.3 POWERCHAR T MGDL Total Protein, S 6.8 6.3 - 8.2 POWERCHART MGDL Specimen (Source) Anatomical Collection Method Collection Time Re ceived Time Location / / Volume Laterality Blood 07/08/2014 2:52 PM CDT [facility] Performing Organization Address City/[facility]/ZIP Code Phon e Number POWERCHART (ABNORMAL) Ferritin (07/08/2014 2:52 PM CDT) athologist Signature Ferritin, S <9 (L) 11 - 307 POWERCHART NGML Specimen (Source) Anatomical Collection Method Collection Time Re ceived Time Location / / Volume Laterality Blood 07/08/2014 2:52 PM CDT Fortino Alarcon [facility] LAB BLOOD ADD-ON Performing Organization Address City/State/ZIP Code Phon e Number POWERCHART (ABNORMAL) BMP (Basic Metabolic Panel) (07/08/2014 2:52 PM CDT) athologist Signature BUN (Blood Urea 16 6 - 20 POWERCHART Nitrogen), S MGDL Creatinine 0.7 0.7 - 1.2 POWERCHART MGDL Glucose 89 POWERCHART Potassium, S 4.6 3.5 - 4.8 POWERCHART MMOLL Sodium, S 133 (L) 135 - 145 POWERCHART MMOLL Chloride, S 98 (L) 100 - 108 POWERCHART MMOLL CO2 Total 27 22 - 30 POWERCHART MMOLL Calcium, Total, 9.1 8.5 - 10.5 POWERCHART S MGDL HXeGFR (MDRD) >60 MLMIN POWERCHART eGFR >60 MLMIN POWERCHART Black/ Specimen (Source) Anatomical Collection Method Collection Time Re ceived Time Location / / Volume Laterality Blood 07/08/2014 2:52 PM CDT Fortino Lamamichell Pabon LAB BLOOD ADD-ON Performing Organization Address City/State/ZIP Code Phon e Number POWERCHART DX Chest AP or PA and Lateral 2 Views (07/08/2014 2:20 PM CDT) Anatomical Region Laterality Modality Chest N/A Radiographic Imaging Specimen (Source) Anatomical Collection Method Collection Time Re ceived Time Location / / Volume Laterality 07/08/2014 2:20 PM CDT Impressions 07/08/2014 2:59 PM CDT Large diaphragmatic hernia. Otherwise negative Narrative 07/08/2014 2:59 PM CDT EXAM: XR Chest 2 Views INDICATION: Dyspnea on exertion. H/O sec ond hand smoking COMPARISON: None. FINDINGS: There is a large diaphragmatic hernia. Lungs and pleural spaces are clear. Normal heart size. Normal vasculature. Bony thorax is intact Procedure Note Jose L Tolbert D.O. / Abhi Choi M.D. - 03/25/2017 EXAM: XR Chest 2 Views INDICATION: Dyspnea on exertion. H/O sec ond hand smoking COMPARISON: None. FINDINGS: There is a large diaphragmatic hernia. Lungs and pleural spaces are clear. Normal heart size. Normal vasculature. Bony thorax is intact IMPRESSION: Large diaphragmatic hernia. Otherwise negative Historical Provider IMG DIAGNOSTIC IMAGING PROCE DURES documented in this encounter Visit Diagnoses Not on filedocumented in this encounter
--- OUTSIDE RECORDS SUMMARY | 2022-09-22 13:39 | XMS_ITS | Clinical Summary ---
:1955 Author Organization [employer] [facility] [place] [address] Care Team Providers Name Role Phone Vidhi Velarde MD Primary Care Provider [phone] Allergies Active Allergy Reactions Severity Noted Date Comments Adhesive Tape-Silicones Rash 12/25/2019 Cat Dander Other - Describe In 06/08/2019 Comment Field Chlorhexidine Rash 12/25/2019 House Dust Mite Other - Describe In 06/08/2019 Comment Field Ibuprofen GI Bleeding 12/25/2019 Iron,Carbonyl-Vitamin C Other - Describe In 01/10/2015 Comment Field Qhsncaba-Yfjlohdzs-Wtgqi Rash 12/25/2019 xine Fluoxetine Hives 04/18/2007 Bupropion Intolerance-Can't 04/18/2007 headaches and jittery Take at high doses Sertraline Intolerance-Can't 04/18/2007 bruxism an d Take constipation at high doses Medications Medication Sig Dispensed Refills Start Date End Date Status clonazepam (KLONOPIN) TAKE 1/2 TO 1 30 tablet 0 04/10/2010 Active 1 mg TABLET BY MOUTH tabletIndications: EVERY 12 HOURS Major depressive NEEDED FOR ANXIETY. disorder, recurrent episode, in full remission (HC) acetaminophen SR Take 1 tablet by 0 04/07/2013 Active (TYLENOL ARTHRITIS) mouth every 8 hours 650 mg extended if needed. Max release tablet acetaminophen dose: 4000mg in 24 hrs. CPAPIndications: autoSV, heated 1 Device 0 09/20/2014 Active Obstructive sleep humidifier, mask, apnea (adult) headgear, filters (pediatric), Central and tubing. Length sleep apnea of Need: 99 Take 1 tablet by 0 05/19/2015 Ac tive vitamin-folic acid 1 mouth once daily. mg ( VITAMIN) tablet/capsule artificial tears 1 Strip. 0 05/19/2015 Ac tive (GENTEAL PM) 85-15 % ophth ointment levothyroxine Take 75 mcg by 0 05/29/2019 Active (SYNTHROID) 75 mcg mouth. tablet busPIRone (BUSPAR) 5 5 mg. 6x a day 1 06/01/2019 Active mg tablet Cranberry Extract 500 Take 500 mg by 0 06/20/2019 Active mg cap mouth 2 times daily. cholecalciferol Take 1 capsule by 0 12/25/2019 Active (VITAMIN D-3) 2,000 mouth once daily. unit capsule doxepin (SINEQUAN) 10 TAKE 1-3 CAPSULES 0 11/28/2019 Active mg capsule BY MOUTH AT BEDTIME hypochlorous acid Apply 40 mL 40 mL 0 12/25/2019 Active 0.01% (AVENOVA) topically to topical spray affected area(s) once daily. Apply 2 sprays to a pad, then wipe base of upper and lower eyelashes. ascorbic acid SR Take 1 capsule by 0 01/16/2020 Active (VITAMIN C) 500 mg mouth once daily. capsule estrogens, conjugated Insert 1 g into the 1 Tube 5 01/25/20 20 Active (PREMARIN) 0.625 vagina at bedtime. mg/gram vaginal Apply pea-sized creamIndications: amount to the Atrophic vaginitis, urethral meatus Recurrent UTI once daily for one week, then once per week thereafter. nitrofurantoin Take 1 capsule by 30 capsule 5 01/25/2020 Active macrocrystal mouth one time if (MACRODANTIN) 50 mg needed for Other capsuleIndications: (Specify). Take one Recurrent UTI tablet prior to or immediately after intercourse. Active Problems Problem Noted Date Avascular necrosis of right humeral head 09/14/2018 ABRAHAN 07/2014 AHI-[id number] 09/20/2014 Central sleep apnea 09/20/2014 Major depression 01/03/2009 GERD (gastroesophageal reflux disease) 01/03/2009 Encounters Date Type Specialty Care Team Description 08/04/2022 Nurse/Clinic Staff Only Test ing (Pre-procedure COVID testing) 08/04/2022 Travel from Last 3 Months Immunizations Name Administration Dates Next Due AMB Influenza, IIV4 PF (=>6 mos 10/24/2014 Flulaval,Fluzone Fluarix)(Flu Clinic Only) Influenza Virus, Unspecified 10/22/2016, 08/15/2015, 014, 09/08/2010, 09/26/2007 Influenza, IIV3 (Age >=3 years) 09/08/2010, 09/26/2007 Influenza, IIV4 10/24/2017 Influenza,CCIIV4 PRESERV FREE 11/22/2018 Td (Age >=7 Years) 11/23/2000 Td, Preservative Free (age >= 7 12/02/2006 Years) Tdap 06/22/2013 Family History Medical History Relation Name Comments Heart Disease Father at age 66 of [place] Stroke Father Cancer Maternal Grandmother Cervical or Uterine Cancer Diabetes Maternal Grandmother Other Maternal Grandmother Macular deg eneration Hypertension Mother Other Mother emphysema deceas ed at age 74/Macular degeneration Psychiatric illness Mother Depression Cancer-breast No Family History Relation Name Status Comments Father Maternal Grandmother Mother Social History Tobacco Use Types Packs/Day Years Used Date Never Smoker Smokeless Tobacco: Never Used Tobacco Cessation: Counseling Given: Yes Alcohol Use Standard Drinks/Week Comments No 0.8 (1 standard drink = 0.6 oz pure alco hol) Sex Assigned at Date Recorded Not on file Obstetrics History Last Filed Vital Signs Vital Sign Reading Time Taken Comments Blood Pressure 124/74 01/16/2020 2:00 PM [employer] Pulse 78 01/16/2020 2:00 PM [employer] Temperature 37.1 ??C (98.7 ??F) 12/25/2019 11:55 AM [employer] Respiratory Rate 16 10/08/2014 1:54 PM [employer] Oxygen Saturation 96% 01/16/2020 2:00 PM [employer] Inhaled Oxygen Concentration - - Weight 90.3 kg (199 lb) 01/16/2020 2:00 PM [employer] Height 172 cm (5' 7.72) 01/16/2020 2:00 PM [employer] Body Mass Index 30.51 01/16/2020 2:00 PM [employer] Plan of Treatment Health Maintenance Due Date Last Done Comments Depression screening for age 12+ 1968 Hepatitis C screening for age 1210/28/1974 18-79 Zoster (shingles) series for age 1210/28/2006 50+ (1 of 2) Mammogram for age 45-75 04/10/2011 04/10/2010, 02/07/2009, 01/17/2008 Lipids for age 45-75 02/07/2014 02/07/2009, 01/22/2008 Colonoscopy through age 75 04/18/2017 04/18/2007, 7 BMI (ht and wt on same day) for 01/15/2021 01/16/2020, 12/15, age 18+ 06/20/2019 DEXA/DXA scan for age 65+ 2021 02/24/2007 Medicare Wellness for age 65+ 2021 Pneumococcal series for age 65+ (1 2021 - PCV) COVID-19 vaccine series (4 - 06/01/2022 04/06/2022, 021, Booster for Moderna series) 01/22/2021 Influenza for age 65+ 07/15/2022 11/22/2018, 10/24/2017, 10/22/2016, Additional history exists Tetanus booster 06/22/2023 06/22/2013, 12/02/2006, 11/23/2000 Pap test for age 21-65 06/03/2025 06/03/2022, 06/03/2022, 01/03/2009, Additional history exists Tdap Completed 06/22/2013 Procedures Procedure Name Priority Date/Time Associated Comments Diagnosis COVID 19 Routine 08/04/2022 2:48 PM Encounter for Results for this CDT pre-operative procedure are in laboratory testing the [facility] ts section. COVID 19 COLLECTION Routine 08/04/2022 2:48 PM Encounter for R esults for this CDT pre-operative procedure are in laboratory testing the [facility] ts section. from Last 3 Months Results COVID 19 (08/04/2022 2:48 PM CDT) Analysis Performed At Path logist Time Signature COVID 19 Negative Negative 08/06/2022 [facility] [place] 6:13 AM CDT LABORATORY-[facility] Comment: All PCR tests are subject to fa lse negative result due to variability in viral load and collection technique. A n egative result does not rule out a SARS-CoV-2 infection. Clinical correlation required . Specimen Anatomical Location / Collection Method Collection Gil e Received Time (Source) Laterality / Volume Other SPECIMEN FROM Non-Blood / 08/04/2022 2:48 08/04/2022 8:38 NASOPHARYNGEAL Unknown PM CDT PM CDT STRUCTURE / Unknown Narrative [facility]-C[facility]TRAL LABORAT ORY - 08/06/2022 6:13 AM CDT This test has been authorized by FDA und er an Emergency Use Authorization (EUA). This test is only authorized for the duration of time the declaration that circumstances exist justifying the authorization of th e emergency use of in vitro diagnostic tests for detection of SARS-CoV-2 virus and/or diagnosis of COVID-19 infection under section 564(b)(1) of the Act, 21 U.S.C. 360bbb-3(b)(1), unless the authorization is terminated or revoked sooner. Pamela Lauren DO MICROBIOLOGY Performing Organization Address City/[facility]/ZIP Code Phon e Number [facility] [address] [place] [address] LABORATORY-CENTRAL 2000 LABORATORY COVID 19 COLLECTION (08/04/2022 2:48 PM CDT) [facility] Method Time Signature TESTING [facility] 08/04/2022 [facility] Laboratory 8:39 PM CDT LABORATORY-CE NTRAL LABORATORY Comment: Specimen submitted to [facility] Laboratory for testing. Specimen Anatomical Location / Collection Method Collection Gil e Received Time (Source) Laterality / Volume Other SPECIMEN FROM Non-Blood / 08/04/2022 2:48 08/04/2022 3:08 NASOPHARYNGEAL Unknown PM CDT PM CDT STRUCTURE / Unknown Pamela Lauren DO SEND OUTS Performing Organization Address City/[facility]/ZIP [facility] Phon e Number [facility] [address] [place] [address] LABORATORY-CENTRAL 2000 LABORATORY from Last 3 Months Insurance Payer Benefit Plan / Subscriber ID Effective Dates Phone Addre ss Type Group MEDICARE PART A - MEDICARE PART A [id number] 2021-Prese ATTN: CLAIMS HB USE ONLY HB ONLY nt [address] [place] [address] BLUE CROSS BLUE CROSS OF [id number] 2014-Presen [address] [place] [address] [facility] MR [id number] 2021-Presen [address] [address] [place] [address] Care Teams Press Department Manager Relationship Specialty Start Date End Date Vidhi Velarde MD PCP - General Family Practice 08/12/221999 [place] [address]
--- OUTSIDE RECORDS SUMMARY | 2022-09-22 13:39 | XMS_ITS | Encounter Summary ---
:1955 Author Organization [facility] Address [address] [place] [address] Care Team Providers Name Role Phone Unavailable Primary Care Provider Unavailable Encounter Details Date Type Department Care Team Description 12/01/2005 Hospital Encounter HX [facility] Pema Law M.D. [address] [place] [address] [phone] (Wo rk) Social History Tobacco Use Types [...] How often do you attend gnosticism or rastafari services? 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 - 12/01/2005 11:00 AM CST [id number] Emelyn is a 50 year old here for her annual exam. Obstetric History T0 P0 TAB0 SAB2 E0 M0 L0 using none for contraception. 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 Has been skipping periods. Was on Prolief for 2 yrs until 09/18. Went off it because vagina started to burn and hurt , felt like he was running into the vagina. NO frequent wakening, no hot flushes. Has been a little more emotional lately. Recently switched lastsummer from Zoloft to WellbutrinSR 100mg QD to BID. Gets anxiety symptoms for 12 yrs+, would like to decrease her meds. Was on effexor with severe withdrawal, had problems. Has knee pain, pain in between shoulders. Has had a little more fatigue in the last few yrs. No palpitations, no vertigo, dizziness. Has diarrhea at times. Wants to discuss red face, never has been on meds, non painful, does not get comedomes with it PAST MEDICAL HISTORY: Previous Medical History: None on file PAST SURGICAL HISTORY: There is no previous surgical history on file. CURRENT MEDICATIONS: Current outpatient prescriptions: WELLBUTRIN SR 100 MG OR TBCR 1 TABLET TWICE DAILY ZANTAC 150 MAXIMUM STRENGTH 150 MG OR TABS 1 TABLET TWICE DAILY ATIVAN 0.5 MG OR TABS 1 TABLET TWICE DAILY ALLERGIES: Sulfa Drugs, Prozac, Pcn FAMILY HX: Family History: Diabetes Other Comment: paternal cousin Diabetes Paternal Grandmother Comment: adult on-set Hypertension Mother Hypertension Maternal Aunt Stroke Father Comment: at age 66 Cancer Maternal Uncle Comment: lung cancer Heart Father Respiratory Mother Comment: emphysemia Thyroid Sister Comment: hypothyriod ROS: REVIEW OF SYSTEMS: NEUROLOGIC: Negative, migraine headaches better in the last few yrs. EYES: Negative ENT: Negative GI: has lifelong problem with diarrhea in response to stress, no change, occ GERD symptoms, not daily BREAST: Negative, had a breast bx for fibroadenoma 2 yrs ago : Negative PUBLIC WORKS TECHNICIAN: Negative CV: Negative PULMONARY: Negative MUSCULOSKELETAL: Negative PSYCH: Negative SOCIAL HISTORY: Social History Marital Status: N/A Spouse Name: N/A Years of Education: N/A Number of Children: N/A Occupational History None on file Social History Main Topics Tobacco Use: Never Alcohol Use: No Drug Use: No Sexually Active: Yes Partners: Male Other Topics Concern SEAT BELT Yes SELF EXAMS No Social History Narrative None on file HEALTH HABITS: calcium intake 2 servings, last dT 1995, last lipids last yr just over 200, last mammogram 2004 <1 yr ago in [place] and was normal, last pap last yr and was normal, last eye exam was Q 2 yrs, last dental exam was Q 6 months. PHYSICAL EXAM: This is a well-developed, well-nourished female in no apparent distress. ENT: has diffuse erythema over cheeks and chin NECK: Supple, no adenopathy and thyroid normal. LUNGS: Normal - CTA without rales, rhonchi, or wheezing.. HEART: Regular rate, rhythm and No murmur, rub, gallop. BREASTS: No masses, skin, nipple or axillary changes. ABDOMEN: Benign, Soft, flat, non-tender, No masses, organomegaly, No inguinal nodes and Bowel soundsnormoactive. PELVIC EXAM: Lymph: no enlarged groin nodes External genitalia: normal development, normal BUS, no lesions and minimally atrophic Perineum: normal skin, no lesions, good support Urethra meatus: normal , no lesion or caruncle Urethra: normal, nontender Bladder: nontender, no masses, not enlarged Vagina:normal mucosa and ruggae, no lesions not atrophic Cervix:primiparous and no lesions Uterus: smooth, firm, mobile, without irregularities midverted Adnexa: not palpable RV: not indicated Rectum: no hemorrhoids, no bleeding EXTREMITIES: Normal. NEUROLOGIC: Normal. SKIN: scattered benign nevi, face as above ASSESSMENT AND PLAN: 1. 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 Has minimal perimenopausal symptoms. Likely had dyspareunia due to atrophy commonly induced by progesterone use. No sign of pelvic relaxation and has minimal atrophy on exam. Discussed option of vagifem, declines asit seems to be getting better. can use lubricants, replens. Discussed HRT, declines for now 2. shoulder and knee pain-PT consult in [place] 3. anxiety disorder-not any worse with the perimenopause. Is on inadequate dose of 100mg Wellbutrin,sees Dr. Luis in [place] as PMD. Would suggest trying wellbutrin XL 150mg daily, given samples. Also suggested biofeedback therapy 4. acne rosacea-Rx metrolotion BID Health maintenance includes: pap smear done today, bone mineral density and next yr will offer colonoscopy and fasting lipids with TSH and glucose. Discussed healthy BMI of 25 or less so goal weight would be about 165.Current BMI is 30.47. Source: [facility] Document Id: [id number] Electronically signed by Conversion, [facility] Care Director [id number] at 04/18/2017 3:26 PM CDT documented in this encounter Miscellaneous Notes Miscellaneous - Conversion, Historical Provider Ser - 12/01/2005 11:00 AM WATER PROJECT ENGINEER [id number] Emelyn Oliveros [address] [place] [phone] December 03, 2005 Dear Emelyn Oliveros, I am happy to inform you that your recent cervical cancer screening test (PAP smear) was normal. Preventative screening such as this helps insure your health for years to come. Congratulations for taking care of yourself! Please contact my office if you have any further questions. [phone]. Sincerely, Roxana Dangelo M.D. OBSTETRICS/GYNECOLOGY [facility] Source: [facility] Document Id: [id number] documented in this encounter Plan of Treatment Upcoming Encounters Date Type Specialty Care Team Description 11/01/2022 Office Visit Urology Regina Black, DIANN, C.N.P. [address] [phone] (Wo rk) documented as of this encounter Visit Diagnoses Not on filedocumented in this encounter
--- OUTSIDE RECORDS SUMMARY | 2022-09-22 13:39 | XMS_ITS | Encounter Summary ---
:1955 Author Organization [facility] Address [address] [place] [address] Care Team Providers Name Role Phone Unavailable Primary Care Provider Unavailable Encounter Details Date Type Department Care Team Description 07/29/2014 Hospital Encounter [facility] Fortino Yadav M.D. [address] [place] [address] 761 Social History Tobacco Use Types Packs/Day [...] How often do you attend religion or evangelical services? 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 - 07/29/2014 10:51 AM CDT [id number] CHIEF COMPLAINT/ REASON FOR VISIT Followup. HISTORY OF PRESENT ILLNESS Alfredo is a 58-year-old female who presents to the clinic today for a three week followup. I last sawher on 07/08/2014. I reviewed his blood test results from 07/25/2014. Results were remarkable for sodium 131. I reviewed her records from [facility] from last year. She is feeling better today. Her shortness of breath is improved. She mentioned that she feels fine walking on flat ground, but still gets shortness of breath walking up stairs. There is no more dizziness. Patient still feels fatigued every day, and still naps every day. She is completing a sleep study later today. Will follow these results. She has iron deficiency anemia. There is no evidence of bleeding. She is pale at todays visit. She denies any back pain. We discussed etiologies and further evaluation and management. I suggested she see Hematology at [facility]. Her sodium is low. We discussed possible etiologies and further evaluation and management. She drinks 2 cups of coffee every morning and has about 64 fluid ounces of water daily. She goes to the bathroom once during the night. I advised her to cut back her daily water intake. Patient has a history of anxiety. She has been taking antidepressants for over 25 years. Patient mentioned that she has stopped taking her depression and anxiety medication because she quit her job andis feeling better. We discussed her seeing a Home School Coordinator for further discussion on hormone levels. I reviewed and updated her medication list. [...] father. Stroke in father. VITAL SIGNS HEIGHT: 171 cm. WEIGHT: 89 kg. BMI: 30.44 kg/m2. PULSE: 76 /min. RESP: 16 /min. SYSTOLIC: 94 mmHg. DIASTOLIC: 49 mmHg. PHYSICAL EXAMINATION GENERAL: Patient is sitting. No distress. Able to talk without interruption. IMPRESSION/ REPORT/ PLAN 1. Iron deficiency anemia. She feels better. She will continue iron supplementation. There was no evidence of bleeding. We discussed possible etiologies, further evaluation and management. I reviewed record form [place]. According to record, EGD and colonoscopy were unremarkable. We discussed Hematology consultation, either at [facility] or [facility]. After discussion, patient agreed to go to [facility] for further evaluation and management. Advised her to get complete record from [facility] in [place] and [facility]. 2. Hyponatremia. She is asymptomatic. Probably due to excessive drinking of water. Advised her to cut back fluid intake. We discussed etiologies, further evaluation and management. We will monitor electrolytes. Will check BMP in 10 days. She had normal TSH in [place]. 3. Discussed test results. I reviewed test results from 07/25/2014. All questions were answered. Todays studies: Urine culture, UA with microscopic, Urine Protein electrophoresis, ACTH. The patient will return to the clinic in one month for followup. Administrative Billing 25 minutes spent with greater than 50% counseling and coordination of care. This document serves as a record of services personally performed by Dr. Fortino Alarcon. It was created on their behalf by Denny Newman, a trained director of medical services. The creation of this record is based on the scribe's personal observations and the provider's statements to them. This document has been checked and approved by the attending provider. Fortino Alarcon M.D./mirian Electronically Signed By: FORTINO ALARCON MD On: 08/14/2014 06:38 PM Modified by and Electronically Signed by: FORTINO ALARCON MD On: 08/14/2014 06:38 PM Source: [facility] Document Id: [id number] documented in this encounter Miscellaneous Notes Miscellaneous - Fortino Alarcon M.D. - 07/31/2014 10:17 PM CDT Results Notification Document Contains Addenda Addendum by EUSEBIO CAMACHO LPN on 01 August 2014 11:32:35 CDT Patient informed of results From: FORTINO ALARCON MD Sent: 07/31/2014 22:17:36 CDT ! Show up: 07/31/2014 22:17:36 CDT Subject: Results Notification Actions: Notify patient of results Reminder Comments: Please call. There is no abnormal protein in blood. ACTH(Test for Adrenal related hormone) is normal. Results: Date Result Name Value Ref Range 07/29/2014 11:53 Total Protein-Sanders 6.7 gm/dL (6.3 - 7.9 - ) 07/29/2014 11:53 ACTH-[place] 15 pg/mL 07/29/2014 11:53 Pro El Interp-Sanders See Comment 07/29/2014 11:53 Album Lvl g/dL-Sanders 3.5 gm/dL (3.4-4.7 - ) 07/29/2014 11:53 Alpha 1 Glob-Sanders 0.2 gm/dL (0.1-0.3 - ) 07/29/2014 11:53 Alpha 2 Glob-Sanders 0.8 gm/dL (0.6-1.0 - ) 07/29/2014 11:53 Gamma Glob-Sanders 1.2 gm/dL (0.6-1.6 - ) 07/29/2014 11:53 Beta Glob-Sanders 1.0 gm/dL (0.7-1.2 - ) 07/29/2014 11:53 A/G Ratio-Sanders 1.12 Source: [facility] [employer] Document Id: [id number] Electronically signed by Harpal, [facility] Cathode Builder [id number] at 04/12/2017 12:21 PM CDT Miscellaneous - Fortino Alarcon M.D. - 07/31/2014 10:17 PM CDT Lab from 07/29/2014 From: FORTINO ALARCON MD To: ALFREDO OLIVEROS Sent: 07/31/2014 22:17:31 CDT Subject: Lab from 07/29/2014 There is no abnormal protein in blood. ACTH(Test for Adrenal related hormone) is normal. Results: Date Result Name Value Ref Range 07/29/2014 11:53 Total Protein-Sanders 6.7 gm/dL (6.3 - 7.9 - ) 07/29/2014 11:53 ACTH-Sanders 15 pg/mL 07/29/2014 11:53 Pro El Interp-Sanders See Comment 07/29/2014 11:53 Album Lvl g/dL-Sanders 3.5 gm/dL (3.4-4.7 - ) 07/29/2014 11:53 Alpha 1 Glob-Sanders 0.2 gm/dL (0.1-0.3 - ) 07/29/2014 11:53 Alpha 2 Glob-Sanders 0.8 gm/dL (0.6-1.0 - ) 07/29/2014 11:53 Gamma Glob-Sanders 1.2 gm/dL (0.6-1.6 - ) 07/29/2014 11:53 Beta Glob-[place] 1.0 gm/dL (0.7-1.2 - ) 07/29/2014 11:53 A/G Ratio-[place] 1.12 Source: [facility] MovatuCHART Document Id: [id number] Electronically signed by Conversion, [facility] Cathode Builder [id number] at 04/12/2017 12:21 PM CDT Miscellaneous - Fortino Alarcon M.D. - 07/29/2014 4:21 PM CDT Urine test 07/29/2014 From: FORTINO ALARCON MD To: ALFREDO OLIVEROS Sent: 07/29/2014 16:20:59 CDT Subject: Urine test 07/29/2014 There is no blood in the urine. Results: Date Result Name Ind Value 07/29/2014 12:01 UA Color Yellow 07/29/2014 12:01 UA Clarity Clear 07/29/2014 12:01 UA Spec Grav >=1.030 07/29/2014 12:01 UA pH 5.5 07/29/2014 12:01 UA Protein Negative mg/dL 07/29/2014 12:01 UA Glucose Negative mg/dL 07/29/2014 12:01 UA Ketones Negative mg/dL 07/29/2014 12:01 UA Bili Negative 07/29/2014 12:01 UA Urobilinogen 0.2 mg/dL 07/29/2014 12:01 UA Blood Negative 07/29/2014 12:01 UA Nitrite Negative 07/29/2014 12:01 UA Leuk Est (*) Trace 07/29/2014 12:01 UR WBC Occ-3 /HPF 07/29/2014 12:01 UR RBC Occ-2 /HPF 07/29/2014 12:01 UR Squamous Epi Cells 4-10 /HPF 07/29/2014 12:01 UR Bacteria (*) Present Source: [facility] [employer] Document Id: [id number] Electronically signed by Conversion, [facility] Cathode Builder [id number] at 04/12/2017 12:21 PM CDT Miscellaneous - Devi Talbert R.N. - 07/29/2014 12:05 PM CDT Ambulatory Vitals Height Weight Ambulatory Vitals Height Weight Entered On: 07/29/2014 16:59 CDT Performed On: 07/29/2014 12:05 CDT by DEVI TALBERT Vitals/Ht/Wt Systolic Blood Pressure : 112 mmHg Diastolic Blood Pressure : 64 mmHg NIBP Mean : 80 mmHg BP Location : Left upper extremity Blood Pressure Cuff Size : Large Height : 171 cm(Converted to: 5 ft 7 inch(es), 67 inch(es)) DEVI TALBERT - 07/29/2014 16:59 CDT Source: [facility] [employer] Document Id: [id number] CDT!8 Miscellaneous - Fortino Alarcon M.D. - 07/29/2014 11:43 AM CDT Ambulatory Patient Summary [address] [id number] Visit Information Name: MANINDERALFREDO LI PABLO [facility] Number: [id number] Current Date: 07/29/2014 11:43:22 Physicians Attending Provider: FORTINO ALARCON MD Primary [...] tablet) 1 Tablet(s), Oral, once a day This is a CHANGE clonazePAM (clonazePAM 1 mg oral tablet) 1 Tablet(s), Oral, three times a day escitalopram (Lexapro 10 mg oral tablet) 1 Tablet(s), Oral, once a day omega-3 polyunsaturated fatty acids (Fish Oil oral capsule) 1 cap, Oral, once a day Stop Taking the Following Medications: Medication list as of 07-29-14 11:43 Attention: If you have any medications at [...] Electronically Signed By: FORTINO ALARCON MD Signed On:29-JUL-2014 11:43:14 Your Allergies & Intolerances Substance Reaction Symptoms [...] Hyponatremia Active Anemia Iron Deficiency NOS Active Your Upcoming Appointments Date Time Location Provider No Appointments found Attention: Contact your local Clinic if further appointment detail needed. Hyponatremia Hyponatremia means low sodium levels in the blood. This condition most often occurs after prolonged vomiting or diarrhea. It can also result from the use of diuretics (water pills) or drinking excess amounts of water. Mild hyponatremia causes no symptoms. It is only discovered with a blood test. As sodium levels in the blood decreases, symptoms begin to appear. This includes weakness, confusion, muscle cramping and seizures. Home Care: 1) Reduce your daily water intake until the problem is corrected. 2) If you have been taking diuretics, you may be asked to stop taking them for a short time. 3) If you are having symptoms of weakness or confusion, do not drive or operate dangerous machinery until symptoms resolve. Follow Up with your doctor for a repeat blood test within the next week unless told otherwise. Get Prompt Medical Attention if any of the following occur: -- Increasing weakness -- Dizziness -- Irregular heartbeat, extra beats or very fast heart rate -- Fainting spell ?? [phone] Dennis Deleon, [address] [place] [address], [place] [address]. All rights reserved. This information is not intended as a substitute for professional medical care. Always follow your healthcare professional's instructions. Your Goals/Additional instructions: Source: [facility] POWERCHART Document Id: [id number] Miscellaneous - Fortino Alarcon M.D. - 07/29/2014 11:43 AM CDT Ambulatory Discharge Medication List [address] [id number] Visit Information Name: ALFREDO OLIVEROS [facility] Number: [id number] Visit Date: 07/29/2014 11:43:21 Attending Provider: FORTINO ALARCON MD Primary Care [...] tablet) 1 Tablet(s), Oral, once a day This is a CHANGE clonazePAM (clonazePAM 1 mg oral tablet) 1 Tablet(s), Oral, three times a day escitalopram (Lexapro 10 mg oral tablet) 1 Tablet(s), Oral, once a day omega-3 polyunsaturated fatty acids (Fish Oil oral capsule) 1 cap, Oral, once a day Stop Taking the Following Medications: Medication list as of 07-29-14 11:43 Attention: If you have any medications at [...] Electronically Signed By: FORTINO ALARCON MD Signed On:29-JUL-2014 11:43:14 Additional Information: Source: [facility] POWERCHART Document Id: [id number] Alba - Fortino Alarcon M.D. - 07/29/2014 11:38 AM CDT Need consult at [facility] for iron deficiency anemia Document Contains Addenda Addendum by EUSEBIO CAMACHO LPN on 02 August 2014 15:16 CDT Patient scheduled on 08/14/2014 at 2:30pm with The department of Hematology. Addendum by EUSEBIO CAMACHO LPN on 29 July 2014 13:47:47 CDT Online referral completed to [facility]. Referral also sent to business office for insurance purpose. [facility] will contact patient directly with appointment information. From: FORTINO ALARCON MD To: KEDAR Alarcon Nurse; Sent: 07/29/2014 11:38:36 CDT Subject: Need consult at [facility] for iron deficiency anemia Actions: Notify patient- refer to General Message, Notify patient of Future Order She needs consult at [facility] for iron deficiency anemia. Please call and schedule. I think she needs to see Hematology first. But check with [facility] scheduling. Source: [facility] POWERCHART Document Id: [id number] Alba - Eusebio Camacho LJuanchoP.N. - 07/29/2014 10:57 AM CDT Adult Technician Anatomic Pathology Intake/History Adult Technician Anatomic Pathology Intake/History Entered On: 07/29/2014 11:00 CDT Performed On: 07/29/2014 10:57 CDT by EUSEBIO CAMACHO LPN Intake Chief Complaint : 3 week follow-up from 07/08/2014. Apical Heart Rate : 76 /min Respiratory Rate : 16 /min Systolic Blood Pressure : 94 mmHg Diastolic Blood Pressure : 49 mmHg (<LLOW) NIBP Mean : 64 mmHg BP Location : Left upper extremity Blood Pressure Cuff Size : Large Height : 171 cm(Converted to: 5 ft 7 inch(es), 67 inch(es)) Actual Weight : 89 kg(Converted to: 196 lb 3 oz) Weight Source : Standing scale Dosing Weight Clinic : 89 kg Clinic BSA : 2.06 Body Mass Index : 30.44 kg/m2 DOUGGHASSANLLOYD MILTON FEED MIXER HELPER - 07/29/2014 10:57 CDT General Info Information Given By : Patient Preferred Communication Mode : Verbal, Written Languages : Nepali Is Patient Female and 13-50 no hysterectomy : No DOUG EUSEBIOLLOYD [facility] - 07/29/2014 10:57 CDT Subjective Pain Symptoms : Chika CAMACHOEUSEBIO KARINE FEED MIXER HELPER - 07/29/2014 10:57 CDT Dependent Habits Tobacco Use/Currently Using : No Tobacco Use/Last 12 months : No Exposure to Tobacco Smoke : Other: never Smoking Status : Never smoker EUSEBIO CAMACHO FEED MIXER HELPER - 07/29/2014 10:57 CDT Caffeine Use Grid Caffeine Use : Current Type : Coffee Frequency : Daily Amount : 2 cups RANDALELTONEUSEBIO Vidal KARINE [facility] - 07/29/2014 10:57 CDT Recreational Drug Use Grid Drug Use : None GHASSAN CAMACHOIN KARINE FEED MIXER HELPER - 07/29/2014 10:57 CDT Source: Soccer Manager Document Id: [id number] CDT!37 documented in this encounter Plan of Treatment Upcoming Encounters Date Type Specialty Care Team Description 11/01/2022 Office Visit Urology Regina Black APRN, C.N.P. [address] [place] [address] [phone] (Wo rk) documented as of this encounter Procedures Procedure Name Priority Date/Time Associated Comments Diagnosis URINALYSIS WITH Routine 07/29/2014 12:01 Results for this MICROSCOPIC PM CDT procedure are i n the results section. ACTH, P Routine 07/29/2014 11:53 Results for this AM CDT procedure are i n the results section. ELECTROPHORESIS, Routine 07/29/2014 11:53 Results for this PROTEIN, S AM CDT procedure are i n the results section. documented in this encounter Results (ABNORMAL) Urinalysis, Complete, Includes Microscopic (07/29/2014 12:01 PM CDT) [facility] Method Time Signature Protein, Ur, Dip Negative MGDL POWERCHART Source Clean Void POWERCHART Urine HXUr Color Yellow POWERCHART Glucose Negative MGDL POWERCHART HXBILIRUBIN Negative POWERCHART Ketones, QL(U) Negative MGDL POWERCHART Specific >=1.030 POWERCHART [place], POCT, U Clarity Clear POWERCHART pH, POCT, Urine 5.5 POWERCHART HXBLOOD Negative POWERCHART Urobilinogen 0.2 MGDL POWERCHART HXNITRITE Negative POWERCHART Leukocyte Trace (A) POWERCHART Esterase HXUR WBC. Occ-3 HPF POWERCHART HXUR RBC. Occ-2 HPF POWERCHART HXUR Bacteria, Present (A) POWERCHART Squamous 4-10 HPF POWERCHART Epithelial Specimen (Source) Anatomical Collection Method Collection Time Re ceived Time Location / / Volume Laterality Urine 07/29/2014 12:01 PM CDT Fortino Alarcon M.D. LAB URINE ORDERABLES Performing Organization Address City/[facility]/ZIP Code Phon e Number POWERCHART ACTH (Adrenocorticotropic Hormone) (07/29/2014 11:53 AM CDT) [facility] Time Signature Adrenocorticotropic 15 PGML POWERCHART Hormone, P Comment: -- REFERENCE VALUE -- 10-60 (a.m. collection) Test Performed by: [place] [address] Rn Team Leader: Wesly peraza III, M.D. Specimen (Source) Anatomical Collection Method Collection Time Re ceived Time Location / / Volume Laterality Blood 07/29/2014 11:53 AM CDT Phunt Phyo MJuanchoD. LAB BLOOD NON ADD-ON Performing Organization Address City/[facility] Code Phon e Number POWERCHART Electrophoresis Protein (07/29/2014 11:53 AM CDT) [facility] Time Signature Total Protein, 6.7 6.3 - 7.9 POWERCHART S GMDL Albumin, S 3.5 3.4 - 4.7 POWERCHART GMDL Alpha-1 0.2 0.1 - 0.3 POWERCHART Globulin GMDL Alpha-2 0.8 0.6 - 1.0 POWERCHART Globulin GMDL Beta-Globulin 1.0 0.7 - 1.2 POWERCHART GMDL Gamma-Globulin 1.2 0.6 - 1.6 POWERCHART GMDL A/G Ratio 1.12 POWERCHART Impression See Comment POWERCHART Comment: RESULT: No apparent monoclonal protein o n serum electrophoresis. Test Performed by: [place] [address] Rn Team Leader: Wesly peraza III, M.D. Specimen (Source) Anatomical Collection Method Collection Time Re ceived Time Location / / Volume Laterality Blood 07/29/2014 11:53 AM CDT Fortino Alarcon M.D. LAB BLOOD ADD-ON Performing Organization Address City/State/ZIP Code Phon e Number POWERCHART documented in this encounter Visit Diagnoses Not on filedocumented in this encounter
--- OUTSIDE RECORDS SUMMARY | 2022-09-22 13:39 | XMS_ITS | Encounter Summary ---
:1955 Author Organization [facility] Address [address] [place] [address] Care Team Providers Name Role Phone Unavailable Primary Care Provider Unavailable Encounter Details Date Type Department Care Team Description 07/25/2014 Hospital Encounter [facility] Fortino Alarcon M.D. [address] [facility] [address] [place] [phone] Social History Tobacco Use Types Packs/Day [...] er 09/12/2022 How often do you attend advent or oriental orthodox services? 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 - 07/26/2014 12:37 PM CDT Lab from 07/25/2014 From: FORTINO ALARCON MD To: ALFREDO OLIVEROS Sent: 07/26/2014 12:37:39 CDT Subject: Lab from 07/25/2014 Actions: Notify patient of results Sodium is slightly low, but stable. Not serious. Rest of the tests were OK. Please follow up with us as we discussed during your visit or sooner if you have any concerns. If you have questions or concerns, please do not hesitate to call our office. Results: Date Result Name Ind Value Ref Range 07/25/2014 08:08 Sodium Lvl (L) 131 mmol/L (135 - 145) 07/25/2014 08:08 Potassium Lvl 4.8 mmol/L (3.5 - 4.8) 07/25/2014 08:08 Chloride (L) 98 mmol/L (100 - 108) 07/25/2014 08:08 CO2 27 mmol/L (22 - 30) 07/25/2014 08:08 Glucose Lvl 99 07/25/2014 08:08 Creatinine 0.7 mg/dL (0.7 - 1.2) 07/25/2014 08:08 EGFR (MDRD) >60 mL/min 07/25/2014 08:08 EGFR (MDRD) >60 mL/min 07/25/2014 08:08 BUN 12 mg/dL (6 - 20) 07/25/2014 08:08 Calcium Lvl 8.7 mg/dL (8.5 - 10.5) Source: [facility] POWERCHART Document Id: [id number] documented in this encounter Plan of Treatment Upcoming Encounters Date Type Specialty Care Team Description 11/01/2022 Office Visit Urology Regina Black APRN, C.N.P. [address] [place], [place] [phone] (Wo rk) documented as of this encounter Procedures Procedure Name Priority Date/Time Associated Diagnosis Comme nts BASIC METABOLIC Routine 07/25/2014 8:08 AM Result s for this PANEL, S/P CDT procedure are i n the results section. documented in this encounter Results (ABNORMAL) BMP (Basic Metabolic Panel) (07/25/2014 8:08 AM CDT) P athologist Signature BUN (Blood Urea 12 6 - 20 POWERCHART Nitrogen), S MGDL Creatinine 0.7 0.7 - 1.2 POWERCHART MGDL Glucose 99 POWERCHART Potassium, S 4.8 3.5 - 4.8 POWERCHART MMOLL Sodium, S 131 (L) 135 - 145 POWERCHART MMOLL Chloride, S 98 (L) 100 - 108 POWERCHART MMOLL CO2 Total 27 22 - 30 POWERCHART MMOLL Calcium, Total, 8.7 8.5 - 10.5 POWERCHART S MGDL eGFR >60 MLMIN POWERCHART Black/ HXeGFR (MDRD) >60 MLMIN POWERCHART Specimen (Source) Anatomical Collection Method Collection Time Re ceived Time Location / / Volume Laterality Blood 07/25/2014 8:08 AM CDT Fortino Alarcon M.D. LAB BLOOD ADD-ON Performing Organization Address City/State/ZIP Code Phon e Number POWERCHART documented in this encounter Visit Diagnoses Not on filedocumented in this encounter
--- NOTE | 2022-09-22 13:40 | CRLHL7_ITS ---
For Patients: As a result of the Century Cures Act, medical imaging exams and procedure reports are released immediately into your electronic medical record. You may view this report before your referring provider. If you have questions, please contact your health care provider. BILATERAL SCREENING MAMMOGRAM WITH COMPUTER-AIDED DETECTION AND TOMOSYNTHESIS TECHNIQUE: CC and MLO views were obtained. These mammographic images have been obtained using full-field digital technique. These mammographic images were interpreted with the benefit of computer-aided detection. Breast Tomosynthesis was used in this interpretation. COMPARISON FILM: 06/17/21, 06/11/20, 11/03/18. FINDINGS: There are scattered areas of fibroglandular density IMPRESSION: There is no radiographic evidence for malignancy. ASSESSMENT: BI-RADS Category 1: Negative RECOMMENDATION: Routine screening mammogram in 1 year. A lay language report of this examination will be provided to the patient. Angel Luis Ross M.D. Diagnostic/Nuclear Medicine Radiologist [email or web address] CLARENCE/Dictated by: Angel Luis Ross MD @ 09/23/2022 8:05:00 AM (Electronically Signed)
== END 2022-09-22 13:30 | disposition home or self-care (01) ==
PROVIDERS: PCP Family Medicine; Visit Provider Family Medicine
DX: Z12.31 Encounter for screening mammogram for malignant neoplasm of breast (principal)
CPT/HCPCS: 77063; 77067

== ENCOUNTER 2023-11-09 14:28 | Outpatient (CLI) | payer MEDICARE, SELFPAY ==
--- NOTE | 2023-11-09 14:40 | CRLHL7_ITS ---
For Patients: As a result of the Century Cures Act, medical imaging exams and procedure reports are released immediately into your electronic medical record. You may view this report before your referring provider. If you have questions, please contact your health care provider. BILATERAL SCREENING MAMMOGRAM WITH COMPUTER-AIDED DETECTION AND TOMOSYNTHESIS TECHNIQUE: CC and MLO views were obtained. These mammographic images have been obtained using full-field digital technique. These mammographic images were interpreted with the benefit of computer-aided detection. Breast Tomosynthesis was used in this interpretation. COMPARISON FILM: 10/02/22, 06/17/21, 05/28/20. FINDINGS: There are scattered areas of fibroglandular density IMPRESSION: There is no radiographic evidence for malignancy. ASSESSMENT: BI-RADS Category 1: Negative RECOMMENDATION: Routine screening mammogram in 1 year. A lay language report of this examination will be provided to the patient. Levy Whipple M.D. Diagnostic Radiologist [email or web address] [place]/Dictated by: Levy Whipple MD @ 11/10/2023 8:53:00 AM (Electronically Signed)
== END 2023-11-09 14:29 | disposition home or self-care (01) ==
LOC: MAMMO 14:31
PROVIDERS: PCP Internal Medicine; Visit Provider Internal Medicine
DX: Z12.31 Encounter for screening mammogram for malignant neoplasm of breast (principal)
CPT/HCPCS: 77063; 77067